=== PATIENT | female | born 1965 | race Caucasian/White ===

== ENCOUNTER 2023-04-13 18:49 | Emergency (ER) | payer BC, SELFPAY ==
[2023-04-13] VITALS (24 sets, daily range): BP systolic 96–156; BP diastolic 60–96; PULSE 53–76; RESP 10–34; TEMP 37.2; O2SAT 78–100; BMI 37.6
--- NOTE | 2023-04-13 18:57 | ED_ITS ---
HPI - General Adult General Chief complaint: Abdominal Pain Stated complaint: APPENDIX Time Seen by Provider: 04/13/23 18:53 History of Present Illness HPI narrative: this patient's here with her complaining of abdominal pain. She had a little bit of right-sided flank pain yesterday and then the abdominal pains been off and on today. She said the pain got much much more intense about an hour ago. Past surgical history includes cholecystectomy and a total abdominal hysterectomy. She's had kidney stones in the past and she's had a history of diverticulitis in the past. She's not on any antibiotics. She's not been running a fever. She's not had diarrhea. She has no urinary problems such as frequency urgency or dysuria. She says the pain is quite sharp and intense and she's moving about on the cart when describing and showing me the area of the pain. She is very restless. Related Data Previous Rx's Medication Instructions Recorded hydrocodone 5 mg-acetaminophen 325 1 tab PO Q6H PRN pain 3 days #10 04/13/23 mg tablet tabs ondansetron HCl 4 mg tablet 4 mg PO Q6H PRN nausea and 04/13/23 vomiting #10 tabs Allergies Allergy/AdvReac Type Severity Reaction Status Date / Time allopurinol AdvReac Mild Verified 04/13/23 18:57 PFSH PFSH Social History Smoking status: Never smoker Exam Narrative Exam Narrative: appears to be uncomfortable moving about on the cart she is not lying still. Vital signs are being noted by the nursing staff. She is awake alert good historian. Abdomen shows previous surgical incisions. There is good bowel sounds in all quadrants. There is no guarding rebound or rigidity. She has no tenderness on the left upper mid or lower quadrant at all. Gallbladders previously surgically medicine as noted. She has discomfort to palpation in the general area of the right mid and right lower quadrant. There is no pulsatile masses. Should be noted her pulse is sixty extremities are normal. The synagogue status evaluation is normal. At this stage we'll get lab going.upward and preliminary orders for Dr. Naranjo to assume care of this case at 1900 hrs. Constitutional Vital Signs, click to edit/add: Last Vital Signs Temp 98.9 F 04/13/23 18:57 Pulse 57 L 04/13/23 22:29 Resp 10 L 04/13/23 22:29 BP 102/83 04/13/23 22:31 Pulse Ox 98 04/13/23 22:20 O2 Del Method Nasal Cannula 04/13/23 21:32 O2 Flow Rate 2 04/13/23 21:32 Course Vital Signs Vital signs: Vital Signs Pulse Oximetry 98 04/13/23 18:55 Temperature 98.9 F 04/13/23 18:57 Pulse Rate 57 L 04/13/23 22:29 Respiratory Rate 10 L 04/13/23 22:29 Blood Pressure 102/83 04/13/23 22:31 Pulse Oximetry 98 04/13/23 22:20 Oxygen Delivery Method Nasal Cannula 04/13/23 21:32 Oxygen Delivery Flow Rate 2 04/13/23 21:32 Medical Decision Making Lab Data Labs: Lab Results 04/13/23 04/13/23 Range/Units 19:05 21:51 WBC 8.8 (4.0-11.0) 10^3/uL RBC 4.56 (4.20-5.40) 10^6/uL Hgb 13.8 (12.0-16.0) g/dL Hct 41.4 (36.0-48.0) % MCV 90.8 (81.0-99.0) fL MCH 30.3 (26.7-34.0) pg MCHC 33.3 (29.9-35.2) g/dL RDW 12.1 (11.0-15.0) % Plt Count 223 (150-450) 10^3/uL MPV 9.8 (9.5-13.5) fL Neut % (Auto) 48.0 (43.0-75.0) % Lymph % (Auto) 39.6 (20.5-60.0) % [place] % (Auto) 7.5 (1.7-12.0) % Eos % (Auto) 3.6 (0.9-7.0) % Baso % (Auto) 1.1 (0.2-2.0) % Neut # (Auto) 4.2 (1.4-6.5) 10^3/uL Lymph # (Auto) 3.5 (1.2-3.8) 10^3/uL [place] # (Auto) 0.7 (0.3-0.8) 10^3/uL Eos # (Auto) 0.3 (0.0-0.7) 10^3/uL Baso # (Auto) 0.1 (0.0-0.1) 10^3/uL Abs Immat Gran (auto) 0.02 (0.00-0.03) 10^3/uL Imm/Tot Granulo (auto) 0.2 (0.0-0.5) % Sodium 138 (136-145) mmol/L Potassium 3.9 (3.5-5.1) mmol/L Chloride 106 (98-107) mmol/L Carbon Dioxide 26.1 (21.0-32.0) mmol/L Anion Gap 9.8 BUN 17.0 (7.0-18.0) mg/dL Creatinine 1.03 H (0.55-1.02) mg/dL Est GFR ( Amer) >60 (>=60) Est GFR (Non-Af Amer) 55 L (>=60) BUN/Creatinine Ratio 16.5 Glucose 88 (74-106) mg/dL Lactate 1.0 (0.4-2.0) mmol/L Calcium 8.8 (8.5-10.1) mg/dL Total Bilirubin 0.5 (0.2-1.0) mg/dL AST 37 (15-37) U/L ALT 40 (14-59) U/L Alkaline Phosphatase 129 H (46-116) U/L Troponin I High Sens 5.1 7.8 (4.0-51.3) pg/mL Total Protein 7.6 (6.4-8.2) g/dL Albumin 4.0 (3.4-5.0) g/dL Globulin 3.6 g/dL Albumin/Globulin Ratio 1.1 Lipase 50.0 L (73.0-393.0) U/L Urine Color Lt. yellow (YELLOW) Urine Clarity Clear (CLEAR) Urine pH 6.0 (5.0-9.0) Ur Specific [place] <=1.005 A (1.005-1.025) Urine Protein Negative (NEG/TRACE) mg/dL Urine Glucose (UA) Negative (NEGATIVE) mg/dL Urine Ketones Negative (NEGATIVE) mg/dL Urine Occult Blood Negative (NEGATIVE) Urine Nitrite Negative (NEGATIVE) Urine Bilirubin Negative (NEGATIVE) Urine Urobilinogen 0.2 (0.2-1.0) EU/dL Ur Leukocyte Esterase Negative (NEGATIVE) Discharge Plan Discharge Chief Complaint: Abdominal Pain Clinical Impression: Abdominal pain, Chest pain Patient Disposition: Home, Self-Care Time of Disposition Decision: 22:22 Condition: Good Mode of Transportation: Private Vehicle Prescriptions / Home Meds: New ondansetron HCl 4 mg tablet 4 mg PO Q6H PRN (Reason: nausea and vomiting) Qty: 10 0RF hydrocodone-acetaminophen 5-325 mg tablet 1 tab PO Q6H PRN (Reason: pain) 3 Days Qty: 10 0RF Instructions: Chest Pain (ED), Flank Pain (ED) Stand Alone Forms: Portal Instructions Referrals: SURJIT SANCHEZ APRN [Primary Care Provider] - 1 week Discharge Date/Time: 04/13/23 22:37
--- NOTE | 2023-04-13 19:00 | CT_ITS ---
The [address] [address] Patient Name: JOY MACARIO MRN: [id number] date: 1965 Sex: F Assigned Patient Location: ER Current Patient Location: ED.MAIN Accession/Order Number: [id number] Exam Date: 04/13/2023 19:26 Report Date: 04/13/2023 20:06 At the request of: CLIFFORD HILL Procedure: CT abdomen pelvis w con EXAM: CT abdomen pelvis w con HISTORY: appendix versus nephrolithiasis , right lower quadrant abdominal pain. Nausea and vomiting. COMPARISON: None. TECHNIQUE: Enhanced helical acquisition obtained through the abdomen and the pelvis. FINDINGS: The visualized lung bases and the pleural spaces are clear. Status post cholecystectomy. 7 mm low-attenuation focus within hepatic segment 8. The spleen, pancreas, left adrenal gland and the kidneys are unremarkable. 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 Mild atherosclerotic disease. No enlarged lymph nodes within the abdomen or the pelvis. Normal appendix. Prior sigmoid resection. Prior hysterectomy. No ascites or focal intraperitoneal fluid collections. CT/CT abdomen pelvis w con IMPRESSION: 1. Subcentimeter low-attenuation focus within hepatic segment 8 is too small accurately characterize. This may be secondary to an underlying hepatic hemangioma or cyst. Prior cholecystectomy. 2. Normal appendix. No inflammatory changes within the abdomen or the pelvis. 3. Prior hysterectomy. 4. Prior sigmoid resection. 5. Benign myelolipoma of the right adrenal gland. Electronically authenticated by: DON HOLT Date: 04/13/2023 20:06
[2023-04-13] MEDS: ONDANSETRON PF 4 MG/2 ML VIAL IV ×2 (19:12→20:22)
[2023-04-13] MEDS: 0.9 % SODIUM CHLORIDE 1,000 ML 999 ML IV (19:12)
[2023-04-13 19:14] LABS: Bilirubin Urine NEGATIVE (NEGATIVE); Blood Urine NEGATIVE (NEGATIVE); Clarity Urine CLEAR (CLEAR); Color Urine LT. YELLOW (YELLOW); Glucose Urine UA NEGATIVE (NEGATIVE); Ketones Urine NEGATIVE (NEGATIVE); Leukocyte Esterase Urine NEGATIVE (NEGATIVE); Nitrite Urine NEGATIVE (NEGATIVE); Protein Urine NEGATIVE (NEG/TRACE); Specific Gravity Urine <=1.005 (1.005-1.025); Urobilinogen Urine 0.2 EU/dL (0.2-1.0)
[2023-04-13] MEDS: KETOROLAC TROMETHAMINE 30 MG/ML VIAL IVP (19:15)
[2023-04-13 19:16] LABS: Basophils Absolute Auto 0.1 10^3/uL (0.0-0.1); Basophils Percent Auto 1.1 % (0.2-2.0); Eosinophils Absolute Auto 0.3 10^3/uL (0.0-0.7); Eosinophils Percent Auto 3.6 % (0.9-7.0); Hematocrit 41.4 % (36.0-48.0); Hemoglobin 13.8 g/dL (12.0-16.0); Immature Granulocytes Abs Auto 0.02 10^3/uL (0.00-0.03); Immature Granulocytes Pct Auto 0.2 % (0.0-0.5); Lymphocytes Absolute Auto 3.5 10^3/uL (1.2-3.8); Lymphocytes Percent Auto 39.6 % (20.5-60.0); Mean Corpuscular HGB Conc 33.3 g/dL (29.9-35.2); Mean Corpuscular Hemoglobin 30.3 pg (26.7-34.0); Mean Corpuscular Volume 90.8 fL (81.0-99.0); Mean Platelet Volume 9.8 fL (9.5-13.5); Monocytes Absolute Auto 0.7 10^3/uL (0.3-0.8); Monocytes Percent Auto 7.5 % (1.7-12.0); Neutrophils Absolute Auto 4.2 10^3/uL (1.4-6.5); Platelet Count 223 10^3/uL (150-450); Red Blood Count 4.56 10^6/uL (4.20-5.40); Red Cell Distribution Width 12.1 % (11.0-15.0); White Blood Count 8.8 10^3/uL (4.0-11.0)
[2023-04-13] MEDS: HYDROMORPHONE HCL 1 MG/ML CARTRIDGE IVP (19:16)
[2023-04-13 19:17] LABS: Urine Microscopic Indicated NO
[2023-04-13 19:27] LABS: Alanine Aminotransferase 40 U/L (14-59); Albumin Globulin Ratio 1.1; Alkaline Phosphatase 129 U/L (46-116); Anion Gap 9.8; Aspartate Amino Transferase 37 U/L (15-37); BUN Creatinine Ratio 16.5; Bilirubin Total 0.5 mg/dL (0.2-1.0); Calcium 8.8 mg/dL (8.5-10.1); Carbon Dioxide 26.1 mmol/L (21.0-32.0); Chloride 106 mmol/L (98-107); Estimated GFR (African America >60 (>=60); Estimated GFR (Non-African Ame 55 (>=60); Globulin 3.6 g/dL; Glucose 88 mg/dL (74-106); Potassium 3.9 mmol/L (3.5-5.1); Sodium 138 mmol/L (136-145); Total Protein 7.6 g/dL (6.4-8.2)
--- NOTE | 2023-04-13 19:50 | ECG_ITS ---
The [facility] Test Date: 2023-04-13 Pat Name: JOY MAACRIO Department: Room: - Gender: Female Form Designer: : 1965 Requested By: Order Number: [id number] Reading MD: MARSHA KURTZ Measurements Intervals [place] Rate: 61 P: 63 [place]: 170 QRS: 33 QRSD: 82 T: 36 QT: 408 QTc: 411 Interpretive Statements 1100 Sinus rhythm 9110 normal ECG No previous ECG available for comparison Electronically Signed On 04-14-2023 11:08:28 EDT by MARSHA KURTZ
[2023-04-13 20:20] LABS: Troponin I High Sensitivity 5.1 pg/mL (4.0-51.3)
[2023-04-13] MEDS: MORPHINE SULFATE 4 MG/ML VIAL IV (20:22)
[2023-04-13] MEDS: LORAZEPAM 1 MG TABLET PO (21:00)
[2023-04-13 22:12] LABS: Troponin I High Sensitivity 7.8 pg/mL (4.0-51.3)
--- NOTE | 2023-04-20 21:48 | ED.ABDPAIN1 ---
HPI - Abdominal Pain General Chief Complaint: Abdominal Pain Stated Complaint: APPENDIX Time Seen by Provider: 04/13/23 18:53 Source: patient and family Mode of arrival: Wheelchair Limitations: no limitations Related Data Previous Rx's Medication Instructions Recorded hydrocodone 5 mg-acetaminophen 325 1 tab PO Q6H PRN pain 3 days #10 04/13/23 mg tablet tabs ondansetron HCl 4 mg tablet 4 mg PO Q6H PRN nausea and 04/13/23 vomiting #10 tabs Allergies Allergy/AdvReac Type Severity Reaction Status Date / Time allopurinol AdvReac Mild Verified 04/13/23 18:57 PFSH PFSH Social History Smoking status: Never smoker Exam Constitutional Vital Signs, click to edit/add: Last Vital Signs Temp 98.9 F 04/13/23 18:57 Pulse 57 L 04/13/23 22:29 Resp 10 L 04/13/23 22:29 BP 102/83 04/13/23 22:31 Pulse Ox 98 04/13/23 22:20 O2 Del Method Nasal Cannula 04/13/23 21:32 O2 Flow Rate 2 04/13/23 21:32 Course Vital Signs Vital signs: Vital Signs Pulse Oximetry 98 04/13/23 18:55 Temperature 98.9 F 04/13/23 18:57 Pulse Rate 57 L 04/13/23 22:29 Respiratory Rate 10 L 04/13/23 22:29 Blood Pressure 102/83 04/13/23 22:31 Pulse Oximetry 98 04/13/23 22:20 Oxygen Delivery Method Nasal Cannula 04/13/23 21:32 Oxygen Delivery Flow Rate 2 04/13/23 21:32 MDM - Abdominal Pain MDM Narrative Medical decision making narrative: Patient: JOY MACARIO MR#: [id number] : 1965 Acct:[id number] Age/Sex: 58 / F ADM Date: 04/13/23 Loc: ER Attending Dr: Ordering Physician: Rob Jefferson Date of Service: 04/13/23 Procedure(s): CT abdomen pelvis w con Accession Number(s): [id number] cc: Physician,Non-Staff M.Edna~ [facility] [place] [id number] Patient Name: JOY MACARIO MRN: [id number] date: 1965 Sex: F Assigned Patient Location: ER Current Patient Location: ED.MAIN Accession/Order Number: [id number] Exam Date: 04/13/2023 19:26 Report Date: 04/13/2023 20:06 At the request of: ROB JEFFERSON Procedure: CT abdomen pelvis w con EXAM: CT abdomen pelvis w con HISTORY: appendix versus nephrolithiasis , right lower quadrant abdominal pain. Nausea and vomiting. COMPARISON: None. TECHNIQUE: Enhanced helical acquisition obtained through the abdomen and the pelvis. FINDINGS: The visualized lung bases and the pleural spaces are clear. Status post cholecystectomy. 7 mm low-attenuation focus within hepatic segment 8. The spleen, pancreas, left adrenal gland and the kidneys are unremarkable. 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 Mild atherosclerotic disease. No enlarged lymph nodes within the abdomen or the pelvis. Normal appendix. Prior sigmoid resection. Prior hysterectomy. No ascites or focal intraperitoneal fluid collections. CT/CT abdomen pelvis w con IMPRESSION: 1. Subcentimeter low-attenuation focus within hepatic segment 8 is too small accurately characterize. This may be secondary to an underlying hepatic hemangioma or cyst. Prior cholecystectomy. 2. Normal appendix. No inflammatory changes within the abdomen or the pelvis. 3. Prior hysterectomy. 4. Prior sigmoid resection. 5. Benign myelolipoma of the right adrenal gland. Electronically authenticated by: DON HOLT Date: 04/13/2023 20:06 patient signed out to me by Dr. jefferson Pain is well controlled. CT scan results were reviewed. All other results were discussed with patient. Patient's abdomen is benign and nonsurgical. For completeness since the patient's pain is also in the epigastric region a 2nd troponin was obtained and is unremarkable. Patient is nontoxic, stable for outpatient follow-up and treatment. At this time the patient is without objective evidence of an acute process requiring hospitalization or inpatient management. The patient has remained hemodynamically stable. No additional indication for emergent studies at this time. I answered all questions. Discussed discharge instructions including standard anticipatory guidance and what should prompt a return to the emergency department, including if they get worse are not getting better or develops any new or concerning symptoms. I've given them specific time frame in which to follow-up, and who to follow-up with. The patient demonstrates understanding. Patient is nontoxic and stable for discharge with outpatient follow-up. This note was created with the assistance of a speech recognition program. Although the intention is to generate documents that actually reflects the content of the visit, no guarantees can be provided that every mistake has been identified and corrected by editing. Differential Diagnosis Differential diagnosis: Likely abdominal pain Lab Data Attestation: I reviewed the patient's lab results. Labs: Lab Results 04/13/23 04/13/23 Range/Units 19:05 21:51 WBC 8.8 (4.0-11.0) 10^3/uL RBC 4.56 (4.20-5.40) 10^6/uL Hgb 13.8 (12.0-16.0) g/dL Hct 41.4 (36.0-48.0) % MCV 90.8 (81.0-99.0) fL MCH 30.3 (26.7-34.0) pg MCHC 33.3 (29.9-35.2) g/dL RDW 12.1 (11.0-15.0) % Plt Count 223 (150-450) 10^3/uL MPV 9.8 (9.5-13.5) fL Neut % (Auto) 48.0 (43.0-75.0) % Lymph % (Auto) 39.6 (20.5-60.0) % [place] % (Auto) 7.5 (1.7-12.0) % Eos % (Auto) 3.6 (0.9-7.0) % Baso % (Auto) 1.1 (0.2-2.0) % Neut # (Auto) 4.2 (1.4-6.5) 10^3/uL Lymph # (Auto) 3.5 (1.2-3.8) 10^3/uL [place] # (Auto) 0.7 (0.3-0.8) 10^3/uL Eos # (Auto) 0.3 (0.0-0.7) 10^3/uL Baso # (Auto) 0.1 (0.0-0.1) 10^3/uL Abs Immat Gran (auto) 0.02 (0.00-0.03) 10^3/uL Imm/Tot Granulo (auto) 0.2 (0.0-0.5) % Sodium 138 (136-145) mmol/L Potassium 3.9 (3.5-5.1) mmol/L Chloride 106 (98-107) mmol/L Carbon Dioxide 26.1 (21.0-32.0) mmol/L Anion Gap 9.8 BUN 17.0 (7.0-18.0) mg/dL Creatinine 1.03 H (0.55-1.02) mg/dL Est GFR ( Amer) >60 (>=60) Est GFR (Non-Af Amer) 55 L (>=60) BUN/Creatinine Ratio 16.5 Glucose 88 (74-106) mg/dL Lactate 1.0 (0.4-2.0) mmol/L Calcium 8.8 (8.5-10.1) mg/dL Total Bilirubin 0.5 (0.2-1.0) mg/dL AST 37 (15-37) U/L ALT 40 (14-59) U/L Alkaline Phosphatase 129 H (46-116) U/L Troponin I High Sens 5.1 7.8 (4.0-51.3) pg/mL Total Protein 7.6 (6.4-8.2) g/dL Albumin 4.0 (3.4-5.0) g/dL Globulin 3.6 g/dL Albumin/Globulin Ratio 1.1 Lipase 50.0 L (73.0-393.0) U/L Urine Color Lt. yellow (YELLOW) Urine Clarity Clear (CLEAR) Urine pH 6.0 (5.0-9.0) Ur Specific [place] <=1.005 A (1.005-1.025) Urine Protein Negative (NEG/TRACE) mg/dL Urine Glucose (UA) Negative (NEGATIVE) mg/dL Urine Ketones Negative (NEGATIVE) mg/dL Urine Occult Blood Negative (NEGATIVE) Urine Nitrite Negative (NEGATIVE) Urine Bilirubin Negative (NEGATIVE) Urine Urobilinogen 0.2 (0.2-1.0) EU/dL Ur Leukocyte Esterase Negative (NEGATIVE) Discharge Plan Discharge Chief Complaint: Abdominal Pain Clinical Impression: Abdominal pain, Chest pain Patient Disposition: Home, Self-Care Time of Disposition Decision: 22:22 Condition: Good Mode of Transportation: Private Vehicle Prescriptions / Home Meds: New ondansetron HCl 4 mg tablet 4 mg PO Q6H PRN (Reason: nausea and vomiting) Qty: 10 0RF hydrocodone-acetaminophen 5-325 mg tablet 1 tab PO Q6H PRN (Reason: pain) 3 Days Qty: 10 0RF Instructions: Chest Pain (ED), Flank Pain (ED) Stand Alone Forms: Portal Instructions Referrals: SURJIT SANCHEZ APRN [Physician] - 1 week Discharge Date/Time: 04/13/23 22:37
== END 2023-04-13 22:37 | disposition home or self-care (01) ==
PROVIDERS: Emergency Medicine Emergency Medical Services; Emergency Provider Emergency Medicine; PCP Nurse Practitioner Primary Care
DX: R10.9 Unspecified abdominal pain (principal); R07.9 Chest pain, unspecified
CPT/HCPCS: 36415; 74177; 80053; 81003; 83605; 83690; 84484; 85025; 93005; 96374; 96375; 96376; 99284; J1170; Q9967

== ENCOUNTER 2023-10-09 16:56 | Outpatient (OUT) | payer BC, SELFPAY ==
--- NOTE | 2023-10-09 17:22 | XR_ITS ---
The [address] [address] Patient Name: JOY MACARIO MRN: [id number] date: 1965 Sex: F Assigned Patient Location: LAB Current Patient Location: Accession/Order Number: [id number] Exam Date: 10/09/2023 17:18 Report Date: 10/10/2023 07:59 At the request of: DON WEST Procedure: XR abdomen 1V EXAMINATION: XR abdomen 1V HISTORY: left upper quadrant abdominal pain R10.12 COMPARISON: No relevant comparison available. FINDINGS: BOWEL GAS PATTERN: No abnormal dilation or deviation. Moderate amount of stool throughout the colon CALCIFICATIONS: Multiple pelvic calcifications, vascular phleboliths are favored OTHER: Negative. No abnormal gaseous collections. XR/XR abdomen 1V IMPRESSION: Nonobstructive bowel gas pattern. Moderate stool throughout colon Electronically authenticated by: MIGUEL HOFFMANN Date: 10/10/2023 07:59
[2023-10-09 17:23] LABS: Basophils Absolute Auto 0.1 10^3/uL (0.0-0.1); Eosinophils Absolute Auto 0.3 10^3/uL (0.0-0.7); Eosinophils Percent Auto 3.2 % (0.9-7.0); Hematocrit 39.3 % (36.0-48.0); Hemoglobin 12.6 g/dL (12.0-16.0); Immature Granulocytes Abs Auto 0.01 10^3/uL (0.00-0.03); Immature Granulocytes Pct Auto 0.1 % (0.0-0.5); Lymphocytes Absolute Auto 2.3 10^3/uL (1.2-3.8); Lymphocytes Percent Auto 25.1 % (20.5-60.0); Mean Corpuscular HGB Conc 32.1 g/dL (29.9-35.2); Mean Corpuscular Hemoglobin 29.5 pg (26.7-34.0); Mean Platelet Volume 9.8 fL (9.5-13.5); Monocytes Absolute Auto 0.7 10^3/uL (0.3-0.8); Monocytes Percent Auto 8.1 % (1.7-12.0); Neutrophils Absolute Auto 5.6 10^3/uL (1.4-6.5); Neutrophils Percent Auto 62.5 % (43.0-75.0); Platelet Count 280 10^3/uL (150-450); Red Blood Count 4.27 10^6/uL (4.20-5.40); Red Cell Distribution Width 13.6 % (11.0-15.0)
[2023-10-09 17:34] LABS: Alanine Aminotransferase 33 U/L (14-59); Albumin Globulin Ratio 0.9; Albumin Level 3.8 g/dL (3.4-5.0); Alkaline Phosphatase 122 U/L (46-116); Amylase 39 U/L (25-115); Anion Gap 14.4; Aspartate Amino Transferase 29 U/L (15-37); BUN Creatinine Ratio 12.5; Bilirubin Total 0.4 mg/dL (0.2-1.0); Calcium 9.3 mg/dL (8.5-10.1); Carbon Dioxide 26.4 mmol/L (21.0-32.0); Chloride 102 mmol/L (98-107); Estimated GFR (African America 52 (>=60); Estimated GFR (Non-African Ame 43 (>=60); Globulin 4.3 g/dL; Glucose 85 mg/dL (74-106); Potassium 3.8 mmol/L (3.5-5.1); Sodium 139 mmol/L (136-145); Total Protein 8.1 g/dL (6.4-8.2)
== END 2023-10-09 16:57 | disposition home or self-care (01) ==
LOC: LAB 17:01
PROVIDERS: PCP Nurse Practitioner Primary Care; Visit Provider Physician Assistant
DX: R10.12 Left upper quadrant pain (principal)
CPT/HCPCS: 36415; 74018; 80053; 82150; 83690; 85025

== ENCOUNTER 2023-11-01 08:56 | Outpatient (OUT) | payer BC, SELFPAY ==
--- NOTE | 2023-11-01 09:03 | CT_ITS ---
[address] [address] Patient Name: JOY MACARIO MRN: [id number] date: 1965 Sex: F Assigned Patient Location: CT Current Patient Location: CT Accession/Order Number: [id number] Exam Date: 11/01/2023 10:55 Report Date: 11/01/2023 11:59 At the request of: DON WEST Procedure: CT abdomen pelvis w con CT abdomen pelvis w con, 11/01/2023 10:55 AM EDT INDICATION: Left Upper Quadrant Pain R10.12 COMPARISON: Prior CT of the abdomen dated 04/13/2023 TECHNIQUE: Axial images of the abdomen were obtained after the administration of IV contrast. Multiplanar reformatted images were generated and reviewed as needed. Dose reduction techniques were achieved by using automated exposure control and/or adjustment of mA and/or kV according to patient size and/or use of iterative reconstruction technique. FINDINGS: Lungs: The base of lungs is clear. No pleural effusion is noted. Liver and gallbladder: Stable small cyst or hemangioma within the right lobe of the liver. Otherwise, the liver is unremarkable. Prior cholecystectomy. No enlargement of extrahepatic biliary ducts. Mild visualization of the intrahepatic biliary ducts, unchanged. Genitourinary system: No hydronephrosis. No nephrolithiasis. No abnormality of the urinary bladder is noted. Prior hysterectomy. Other solid abdominal organs: Left adrenal gland, pancreas, and spleen are unremarkable. Stable myelolipoma in the right adrenal gland. Aorta: The infrarenal abdominal aorta is nonaneurysmal. Free fluid: There is no free fluid in the abdomen pelvis. Lymph node: No lymph node enlargement by size criteria is noted. Stomach and Bowel: No abnormality of the stomach is noted. No significant abnormality of the small or large bowel is noted. Prior sigmoid resection. Bone: There is no suspicious osteolytic or osteoblastic lesion. CT/CT abdomen pelvis w con IMPRESSION: No definite radiological finding to explain patient's symptoms. Electronically authenticated by: LOKESH LOVE Date: 11/01/2023 11:59
--- OUTSIDE RECORDS SUMMARY | 2023-11-01 09:17 | XMS_ITS | CCD ---
Author Organization [facility] Care Team Providers Care Oxygen Equipment Technician Name Role Phone MACK URIBE Primary Care Unavailable MICHAEL LAINEZ Attending Unavailable MACK URIBE Primary Care Unavailable MIGUEL WATSON Attending Unavailable Tino Shaw Unavailable Unavailable Mack Uribe Unavailable Unavailable Matilde Godinez Unavailable Unavailable Tino Shaw Unavailable Unavailable Mack Urieb Unavailable Unavailable Unavailable Mack Uribe Unavailable Katelyn Evans Unavailable Tino Shaw Unavailable Abivandana, Luke Unavailable Jane Baum Unavailable Unavailable Mack Uribe MD Primary Care Provider Matilde Godinez MD Unavailable NON STAFF Primary Care Provider UnavailDO Alexsander Jones Emergency Provider MD Devin Rodriguez Admit Provider MD Devin Rodriguez Attending Provider [phone] MD Michael Spencer Other Provider MD Mayra Denson Attending Provider MD Mack Uribe Primary Care Provider DO Nathalie West Attending Provider DO Kang Gonzalez Emergency Provider Mack Uribe MD Primary Care Provider Matilde Godinez MD Unavailable MD Mack Uribe Primary Care Provider NEEMA Merchant Emergency Provider Hector Stan Unavailable Mack Uribe MD Primary Care Provider Matilde Godinez MD Unavailable Kwadwo Webb Unavailable MD Mack Uribe Primary Care Provider DO Kang Gonzalez Emergency Provider MACK URIBE Primary Care Physician DO Elton Larson Emergency Provider MD Mack Uribe Primary Care Provider Shammo, ENGINE INSTALLER-BC Orlin T Primary Care Provider Shammo, ENGINE INSTALLER-BC Orlin T Attending Provider MD Miguel Wesley Attending Provider [phone] Shammo, ENGINE INSTALLER-BC Orlin T Referring Provider Matilde Godinez MD Unavailable Rosemarie Aldridge Unavailable Miguel Wesley Unavailable Jonathon Bauman Unavailable MD Mack Uribe Primary Care Provider DO Elton Larson Emergency Provider Shammo, ENGINE INSTALLER-BC Orlin T Primary Care Provider Shammo, ENGINE INSTALLER-BC Orlin T Attending Provider MD Miguel Wesley Attending Provider Shammo, ENGINE INSTALLER-BC Orlin T Referring Provider MD Kwadwo Webb Attending Provider NONE, XXXX Referring Unavailable DEEPAK DAVIS Admitting Unavailable DEEPAK DAVIS Attending Unavailable NONE, XXXX Referring Unavailable Jason Puentes Attending Unavaila ble Jason Puentes Attending Unavaila ble Jason Puentes Referring Unavaila ble Jason Puentes Admitting Unavaila ble MD Matt ROMANO Consulting Unavailable Jsaon Puentes Attending Unavaila ble Jason Puentes Referring Unavaila ble Jason Puentes Admitting Unavaila ble Matt ROMANO Consulting Unavailable Matt ROMANO Consulting Unavailable Jason Puentes Attending Unavaila ble Jason Puentes Admitting Unavaila ble NONE, XXXX Referring Unavailable Jason Puentes Attending Unavaila ble Jason Puentes Admitting Unavaila ble Jason Puentes Attending Unavaila ble NONE, XXXX Referring Unavailable TAMMIE MCARTHUR Attending Unavailable Unnithan, Mack S Primary Care Unavailable Elton Larson Admitting Unavailable TuElton morales Attending Unavailable Shammo, Orlin T Primary Care Unavailable Kwadwo Webb Admitting Unavailabl e Kwadwo Webb Attending Unavailabl e Kang Gonzalez Admitting Unavailable LisaKang mathew Attending Unavailable Unnithan, Mack S Primary Care Unavailable Shammo, Orlin T Primary Care Unavailable Shammo, Orlin T Attending Unavailable Shammo, Orlin T Admitting Unavailable Shammo, Orlin T Primary Care Unavailable Miguel Wesley Attending Unavailable Shammo, Orlin T Referring Unavailable Miguel Wesley Admitting Unavailable Miguel Wesley Admitting Unavailable Miguel Wesley Attending Unavailable Shammo, Orlin T Primary Care Unavailable Kwadwo Webb Admitting Unavailabl Kwadwo Adamson Attending Unavailabl e Shammo, Orlin T Primary Care Unavailable Kwadwo Webb Admitting Unavailabl Kwadwo Adamson Attending Unavailabl e Shammo, Orlin T Primary Care Unavailable JAIRON COWAN Referring Unavailable UNNITHAN, MACK S Primary Care Unavailable JAIRON COWAN Attending Unavailable UNNITHAN, MACK S Primary Care Unavailable ALISSON MACIAS M Referring Unavailable UNNITHAN, MACK S Primary Care Unavailable ALISSON MACIAS Referring Unavailable SRAVAN MARROQUIN Attending Unavailable UNNITHAN, MACK S Primary Care Unavailable UNNITHAN, MACK S Primary Care Unavailable MASSIMO MCCULLOUGH Attending Unavaila ble MONAE FINNEY Attending Unavailable UNNITHAN, MACK S Primary Care Unavailable MATILDE GODINEZ Referring Unavailable UNNITHAN, MACK S Primary Care Unavailable MATILDE GODINEZ Attending Unavailable JAIRON COWAN Referring Unavailable UNNITHAN, MACK S Primary Care Unavailable JAIRON COWAN Referring Unavailable UNNITHAN, MACK S Primary Care Unavailable Allergies Allergy Classification Reported Allergen(s) Allergy Type Date of Onset Reaction(s) Facility Allopurinol (13 sources) Allopurinol; Translations: [allopurinol] Drug Allergy Hives/[facility]rt[facility] a [facility] DO Work Phone: Sulfonamides (antibiotic) (13 sources) Sulfonamides (Antibiotic); Translations: [Sulfa Drugs] Drug Allergy Hives/[facility]rt[facility]ari [facility] DO Work Phone: (20 sources) Allopurinol; Translations: [allopurinol] Drug Allergy 11-22-19 18 Rash, Weal (disorder) [facility] Work Phone: (9 sources) Sulfonamides (Antibiotic); Translations: [sulfa drugs] Allergy to drug (finding) Unknown [facility] (20 sources) gabapentin; Translations: [gabapentin] Drug Allergy 03-03-20 13 Other: See Comments [facility] (20 sources) Sulfamethoxazole; Translations: [sulfamethoxazole ] Drug Allergy 12-04-19 12 Hives, Urticaria (disorder) [facility] (10 sources) Sulfonamides (Antibiotic); Translations: [Sulfa (Sulfonamide Antibiotics)] Allergy to substance 02-24-20 22 Unknown Reaction [facility] (20 sources) NITROFURANTOIN, MACROCRYSTALS / Nitrofurantoin, Monohydrate; Translations: [nitrofurantoin] Drug Allergy 03-29-20 22 Vomiting, Shortness of Breath, Anaphylaxis, Cough, Anaphylaxis (disorder) [facility] (10 sources) Nitrofurantoin; Translations: [nitrofurantoin] Drug Allergy 07-08-20 22 Vomiting [facility] (1 source) Sulfonamide Drug allergy Unknown [facility] Other (13 sources) Substance with sulfonamide structure and antibacterial mechanism of action (substance) Drug allergy Unknown [facility] Other (6 sources) Sulfonamides; Translations: [sulfonamides] Drug allergy Unknown [facility] Medications Current Medications Medication Drug Class(es) Dates Sig (Normalized) Sig (Original) 0.25 MG, 0.5 MG Dose 3 ML semaglutide 0.68 MG/ML Pen Injector [Ozempic] (1 source) Start: 07-13-2023 Ozempic (0.25 or 0.5 MG/DOSE) 2 MG/3ML 0.25 mg for one month and then increase to 0.5 mg dose Subcutaneous weekly for 30 days Type 2 diabetes. Intolerant metformin. Known CAD. Jul, Active acetaminophen 500 mg oral tablet (20 sources) take 1 tablet by mouth every six hours Acetaminophen 500 MG 1 tablet as needed Orally every 6 hrs Active Tylenol TABS Aniket ntity: 0 Refills: 0 Ordered: 31-Jan-2021 DO Active acetaminophen 325 mg / oxyCODONE hydrochloride 5 mg oral tablet (4 sources) Opioid Agonist Start: 06-20-2019 take 1 tablet by mouth every six hours Percocet 5/325 oral tablet ; 1 tab(s) orally every 6 hours Quantity: 24 Refills: 0 Ordered: 20-Jun-2019 Tino Shaw Start: 20-Jun-2019 Status: Other Generic Substitution Allowed Comments: Caution federal law prohibits the transfer of this drug to any person other than the person for whom it was prescribed.May cause drowsiness. Alcohol may intensify this effect. Use care when operating dangerous machinery.This prescription cannot be refilled.This product contains acetaminophen. Do not use with any other product containing acetaminophen to prevent possible liver damage.Using more of this medication than prescribed may cause serious breathing problems. Comment on above: Caution federal law prohibits the transfer of this drug to any person other than the person for whom it was prescribed.May cause drowsiness. Alcohol may intensify this effect. Use care when operating dangerous machinery.This prescription cannot be refilled.This product contains acetaminophen. Do not use with any other product containing acetaminophen to prevent possible liver damage.Using more of this medication than prescribed may cause serious breathing problems. Albuterol / Ipratropium (4 sources) Anticholinergic, beta2-Adrenergic Agonist take 1 puff(s) by inhalation four times daily ipratropium-albute rol 20 mcg-100 mcg/inh inhalation aerosol ; 1 puff(s) inhaled 4 times a day Quantity: 0 Refills: 0 Ordered: 10-Jun-2019 Genaro Monroy Status: Other Generic Substitution Allowed dicyclomine hydrochloride 20 mg oral tablet (14 sources) Anticholinergic Start: 01-17-2023 take 20 mg by mouth three times daily Dicyclomine Active 20 MG PO Three times daily January 16, 2023 11:00pm Start: 09-14-2022 End: 01-17-2023 take 10 mg by mouth twice daily Dicyclomine Discontinued 10 MG PO Twice daily September 14, 2022 12:00am January 17, 2023 3:28pm 24 hr isosorbide mononitrate 30 mg extended release oral tablet (3 sources) Nitrate Vasodilator Start: 05-03-2023 take 1 tablet by mouth once daily in the morning isosorbide mononitrate 30 mg ER Tab 30 mg = 1 tab(s), Oral, qAM, # 30 tab(s), Refills(s) 3, Pharmacy: [id number], 160, cm, 05/03/23 14:29:00 EDT, Height/Length Dosing, 97, kg, 05/03/23 14:58:00 EDT, Weight Dosing Start Date: 05/03/23 Status: Ordered LORazepam 0.5 mg oral tablet (4 sources) Benzodiazepine Start: 01-02-2021 take 1 tablet by mouth every eight hours as needed LORazepam 0.5 mg oral tablet ; 1 tab(s) orally every 8 hours, As Needed - Anxiety Quantity: 0 Refills: 0 Ordered: 01-Mar-2021 Penny Peters Start: 02-Jan-2021 Generic Substitution Allowed losartan potassium 25 mg oral tablet (20 sources) Angiotensin 2 Receptor Dimple Start: 08-20-2018 End: 02-05-2023 losartan 25 mg Tab Refills(s) 0 Start Date: 03/29/23 Status: Ordered Comment on above: TAKE 1 TABLET DAILY Take 1 tablet by arturo th once daily. metroNIDAZOLE 0.0075 mg/mg vaginal gel (15 sources) Nitroimidazole Antimicrobial Start: 03-29-2023 metronidazole 0.75% Vag Gel w/Appl 1 lala, Vaginal, Once, 70 gram, Refill(s) 0 Start Date: 03/29/23 Status: Ordered Start: 12-27-2022 metroNIDAZOLE 0.75 % cream Apply 1 application to affected area twice daily as needed. 0 12/27/2022 Active Comment on above: Apply 1 application to affected area twice daily as needed. minocycline 50 mg oral capsule (17 sources) Tetracycline-class Drug Start: 12-27-2022 minocycline 50 mg Cap Refills(s) 0 Start Date: 03/29/23 Status: Ordered Comment on above: Take 1 capsule by [facility] twice daily. Nitro Sublingual 0.4 (13 sources) Nitro Sublingual 0.4 Active nitroglycerin 0.4 mg/actuat mucosal spray (20 sources) Nitrate Vasodilator Start: 03-29-2023 nitroglycerin 0.4 mg SubL [place] Refills(s) 0 Start Date: 03/29/23 Status: Ordered Start: 01-16-2022 End: 09-14-2022 Nitroglycerin Discontinued 1 EACH TRANSDERML DAILY@0600 30 30 January 15, 2022 11:00pm September 14, 2022 7:13pm Start: 04-25-2021 End: 02-05-2023 nitroglycerin sublingual (NI TROQUICK) 0.4 mg SL tablet Indications: Atherosclerosis of [place] coronary artery of [place] heart without angina pectoris Dissolve 1 tablet under the tongue as needed for chest pain. 25 tablet 44 02/05/2023 Active nitroglycerin 0. 4 mg sublingual tablet ; 1 tab(s) sublingual every 5 minutes, As Needed, for up to 3 doses Quantity: 0 Refills: 0 Ordered: 23-Nov-2020 Greer Mcallister Generic Substitution Allowed Comment on above: DISSOLVE 1 TABLET UN EVELINE THE TONGUE NEEDED FOR CHEST PAIN Dissolve 1 tablet un eveline the tongue as needed for chest pain. ozempic (0.25 or 0.5 mg/dose) 2 mg/3ml solution pen-injector (5 sources) Start: 3 inject 0.5 mg by subcutaneous injection every week Ozempic (0.25 or 0.5 MG/DOSE) 2 MG/3ML 0.5 mg Subcutaneous weekly for 28 days Type 2 diabetes. Intolerant metformin. Known CAD. Jul, Active Start: 07-13-2023 Ozempic (0.25 or 0.5 MG/DOSE) 2 MG/3ML 0.25 mg for one month and then increase to 0.5 mg dose Subcutaneous weekly for 30 days Type 2 diabetes. Intolerant metformin. Known CAD. Jul, Active pantoprazole 40 mg delayed release oral tablet (20 sources) Proton Pump Inhibitor Start: 08-17-2019 End: 05-26-[address] Tab Refills(s) 0 Start Date: 03/29/23 Status: Ordered Start: 08-20-2018 take 40 mg by mouth twice daily Pantoprazole Active 40 MG PO Twice daily September 14, 2022 12:00am Comment on above: TAKE 1 TABLET DAILY Take 1 tablet by arturo th once daily. polyethylene glycol 3350 06057 mg powder for oral solution (3 sources) Osmotic Laxative polyethylene gl ycol 3350 oral powder for reconstitution ; use as directed once a day Quantity: 0 Refills: 0 Ordered: 01-Mar-2021 Penny Peters Status: Discontinued Generic Substitution Allowed Psyllium (12 sources) Metamucil 28 % 1 packet with 8 ounces of liquid as needed Orally PRN gummies about 3 times a week Active Metamucil gummie s about 3 times a week Active 12 hr ranolazine 500 mg extended release oral tablet (8 sources) Anti-anginal Start: 08-10-2023 take 1 tablet by mouth twice daily Ranexa 500 mg Tab-ER 500 mg = 1 tab(s), Oral, BID, # 180 tab(s), Refills(s) 3, Pharmacy: [id number], 160, cm, 08/10/23 16:28:00 EST, Height/Length Dosing, 98.6, kg, 08/10/23 16:28:00 EST, Weight Dosing Start Date: 08/10/23 Status: Ordered Start: 06-26-2023 take 1 tablet by arturo th twice daily Ranexa 500 mg Tab-ER 500 mg = 1 tab(s), Oral, BID, # 60 tab(s), Refills(s) 1, Pharmacy: [id number], 160, cm, 06/26/23 15:04:00 EST, Height/Length Dosing, 98.2, kg, 06/26/23 15:04:00 EST, Weight Dosing Start Date: 06/26/23 Status: Ordered Ranexa 5000mg/ 1 tablet daily Active rosuvastatin calcium 40 mg oral tablet (20 sources) HMG-CoA Reductase Inhibitor Start: 02-11-2019 End: 02-05-2023 rosuvastatin 40 mg Tab Refills(s) 0 Start Date: 03/29/23 Status: Ordered Comment on above: TAKE 1 TABLET DAILY AT BEDTIME Take 1 tablet by arturo th daily at bedtime. Ozempic (1 source) Start: 08-10-2023 Ozempic Refill (s) 0 Start Date: 08/10/23 Status: Ordered simethicone 80 mg chewable tablet (4 sources) Start: 01-02-2021 take 1 tablet by mouth four times daily at bedtime as needed simethicone 80 mg oral tablet, chewable ; 1 tab(s) orally 4 times a day (after meals and at bedtime), As Needed Quantity: 0 Refills: 1 Ordered: 01-Mar-2021 Penny Peters Start: 02-Jan-2021 Status: Discontinued Generic Substitution Allowed Stool Softner (10 sources) Start: 01-24-2022 take 1 tablet by mouth once daily Stool Softner Active 1 TAB PO Daily January 24, 2022 9:21am Start: 01-24-2022 take 1 tablet by mouth once da yenifer Stool Softner Active 1 TAB PO Daily January 24, 2022 12:00am Start: 01-24-2022 take 1 tablet by mouth once da yenifer Stool Softner Active 1 TAB PO Daily January 23, 2022 11:00pm sucralfate 1000 mg oral tablet (20 sources) Aluminum Complex Start: 01-17-2023 take 1 tablet by mouth every six hours Sucralfate (Carafate) 1 gram tablet Active 1 GM PO Q6H 56 14 January 16, 2023 11:00pm Start: 05-27-2021 End: 01-16-2022 take 1 tablet by mouth before mealtime Sucralfate (Carafate) 1 gram Tablet Discontinued 1 GM PO before meals May 26, 2021 11:00pm January 16, 2022 9:25am Start: 03-03-2021 End: 05-26-2022 take 1 tablet by mouth at bedtime Sucralfate (Carafate) 1 gram tablet Discontinued 1 GM PO Before meals and at bedtime 60 May 26, 2021 11:00pm January 16, 2022 9:25am Comment on above: Take 1 g by mouth fo ur times daily. traMADol hydrochloride 50 mg oral tablet (4 sources) Opioid Agonist take 1 tablet by mouth every four hours as needed Ultram 50 mg oral tablet ; 1 tab(s) orally every 4 hours, As Needed Quantity: 0 Refills: 0 Ordered: 17-Jun-2019 ArmidaLuis burciaga Status: Discontinued Generic Substitution Allowed Turmeric extract (11 sources) Turmeric Active take 1 capsule by mouth twice da yenifer Turmeric 500 mg oral capsule ; 1 cap(s) orally 2 times a day Quantity: 0 Refills: 0 Ordered: 01-Mar-2021 Penny Peters Generic Substitution Allowed take 1 capsule by mouth once lola ly Turmeric 500 mg oral capsule ; 1 cap(s) orally once a day Quantity: 0 Refills: 0 Ordered: 29-Dec-2020 Cassandra Jaeger Generic Substitution Allowed Completed/Discontinued Medications Medication Drug Class(es) Dates Sig (Normalized) Sig (Original) acetaminophen 300 mg / codeine phosphate 30 mg oral tablet (6 sources) Opioid Agonist Start: 03-07-2021 take 1 tablet by mouth twice daily Acetaminophen-Cod eine #3 300-30 MG Oral Tablet 1 tab bid Quantity: 0 Refills: 0 Ordered: 07-Mar-2021 DO Start : 07-Mar-2021 Active Start: 03-03-2021 take 1 tablet by arturo th every eight hours acetaminophen-codeine 300 mg-30 mg oral tablet ; 1 tab(s) orally every 8 hours Quantity: 15 Refills: 0 Ordered: 03-Mar-2021 Tino Shaw Start: 03-Mar-2021 Generic Substitution Allowed Comments: Caution federal law prohibits the transfer of this drug to any person other than the person for whom it was prescribed.May cause drowsiness. Alcohol may intensify this effect. Use care when operating dangerous machinery.This product contains acetaminophen. Do not use with any other product containing acetaminophen to prevent possible liver damage.Using more of this medication than prescribed may cause serious breathing problems. Comment on above: Caution federal law prohibits the transfer of this drug to any person other than the person for whom it was prescribed.May cause drowsiness. Alcohol may intensify this effect. Use care when operating dangerous machinery.This product contains acetaminophen. Do not use with any other product containing acetaminophen to prevent possible liver damage.Using more of this medication than prescribed may cause serious breathing problems. acetaminophen 325 mg / HYDROcodone bitartrate 5 mg oral tablet (20 sources) Opioid Agonist Start: 05-27-20 End: 01-25-20 take 1 tablet by mouth every six hours Hydrocodone-Acetamin ophen Discontinued 1 TAB PO Q6H 10 3 May 27, 2021 January 24, 2022 8:29am Start: 03-07-2021 End: 03-09-2021 take 1 tablet by mouth every six hours [place] 5 mg-325 mg oral tablet ; 1 tab(s) orally every 6 hours Quantity: 18 Refills: 0 Ordered: 07-Mar-2021 Jane Baum Start: 07-Mar-2021 End: 09-Mar-2021 Generic Substitution Allowed Comments: Caution federal law prohibits the transfer of this drug to any person other than the person for whom it was prescribed.May cause drowsiness. Alcohol may intensify this effect. Use care when operating dangerous machinery.This product contains acetaminophen. Do not use with any other product containing acetaminophen to prevent possible liver damage.Using more of this medication than prescribed may cause serious breathing problems. Start: 01-26-2021 End: 01-28-2021 take 1 tablet by mouth every four hours hydrocodone-acetaminophen 5 mg-325 mg oral tablet ; 1 tab(s) orally every 4 hours x 3 days Quantity: 18 Refills: 0 Ordered: 25-Jan-2021 Katelyn Evans Start: 25-Jan-2021 End: 27-Jan-2021 Generic Substitution Allowed Comments: Caution [place] law prohibits the transfer of this drug to any person other than the person for whom it was prescribed.May cause drowsiness. Alcohol may intensify this effect. Use care when operating dangerous machinery.This product contains acetaminophen. Do not use with any other product containing acetaminophen to prevent possible liver damage.Using more of this medication than prescribed may cause serious breathing problems. Start: 01-02-2021 take 1 tablet by arturo th every four hours as needed hydrocodone-acetaminophen 7.5 mg-325 mg oral tablet ; 1 tab(s) orally every 4 hours, As needed, Pain - Mod (4-6) Quantity: 24 Refills: 0 Ordered: 02-Jan-2021 Tino Shaw Start: 02-Jan-2021 Generic Substitution Allowed End: 03-07-2021 Vicodin TABS Quantity: 0 Ref ills: 0 Ordered: 07-Mar-2021 DO End : 07-Mar-2021 Complete Vicodin TABS Aniket ntity: 0 Refills: 0 Ordered: 31-Jan-2021 DO Active Comment on above: Caution federal law prohibits the transfer of this drug to any person other than the person for whom it was prescribed.May cause drowsiness. Alcohol may intensify this effect. Use care when operating dangerous machinery.This product contains acetaminophen. Do not use with any other product containing acetaminophen to prevent possible liver damage.Using more of this medication than prescribed may cause serious breathing problems. [id number] 200 actuat albuterol 0.09 mg/actuat metered dose inhaler (19 sources) beta2-Adrenergic Agonist Start: 08-20-2017 ProAir HFA 108 (90 Base) MCG/ACT Inhalation Aerosol Solution Quantity: 25 Refills: 0 Ordered: 29-Jul-2018 DO Start : 20-Aug-2017 Active Start: 08-20-2017 ProAir HFA 108 (90 Base) MCG/ACT Inhalation Aerosol Solution Quantity: 25 Refills: 0 DO Start : 20-Aug-2017 Active take 3 mL by inhalat ion every six hours as needed albuterol 2.5 mg/3 mL (0.083%) inhalation solution ; 3 milliliter(s) inhaled via nebulizer every 6 hours, As Needed Quantity: 0 Refills: 0 Ordered: 01-Mar-2021 Penny Peters Generic Substitution Allowed take 2 puff(s) by in halation four times daily as needed ProAir HFA 90 mcg/inh inhalation aerosol ; 2 puff(s) inhaled 4 times a day, As Needed Quantity: 0 Refills: 0 Ordered: 17-Jun-2019 DiFLuis burciaga Generic Substitution Allowed aspirin 81 mg delayed release oral tablet (20 sources) Platelet Aggregation Inhibitor, Nonsteroidal Anti-inflammatory Drug Start: 02-27-2020 take 1 tablet by mouth once daily aspirin, enteric coated (ECOTRIN LOW STRENGTH) 81 mg EC tablet Take 1 tablet by mouth once daily. 0 02/27/2020 Active Jazlyn Aspirin EC Low Dose Active take 1 tablet by mouth once paulo y aspirin 81 mg oral tablet ; 1 tab(s) orally once a day Quantity: 0 Refills: 0 Ordered: 01-Mar-2021 Fran Penny Status: Discontinued Generic Substitution Allowed aspirin 81 mg or al tablet, dispersible Quantity: 0 Refills: 0 Ordered: 10-Jun-2019 Genaro Monroy Status: Other Generic Substitution Allowed aspirin 81 mg or al tablet ; orally once a day Quantity: 0 Refills: 0 Ordered: 23-Nov-2020 Greer Mcallister Generic Substitution Allowed Comment on above: Take 1 tablet by arturo th once daily. bifidobacterium infantis 4 mg oral capsule (20 sources) Start: 01-25-20 End: 01-18-20 take 1 capsule by mouth once daily Bifidobacterium Infantis (Align) 4 mg Capsule Discontinued 1500 MMU CELLS PO Daily January 24, 2022 12:00am January 17, 2023 4:27pm Bifidobacterium infantis (ALIGN ORAL) Take by mouth once daily. 0 Active Comment on above: Take by mouth once d aily. cephalexin 500 mg oral capsule (9 sources) Cephalosporin Antibacterial Start: 02-24-20 End: 09-14-19 take 500 mg by mouth three times daily Cephalexin Discontinued 500 MG PO Three times daily 30 February 22, 2022 11:00pm September 14, 2022 7:12pm colchicine 0.6 mg oral capsule (20 sources) Start: 01-25-20 take 1 capsule by mouth once daily colchicine, gout, (MITIGARE) 0.6 mg capsule Indications: Gout with manifestations Take 1 capsule by mouth once daily. 30 capsule 2 05/01/2023 Active Start: 05-27-2021 End: 01-24-2022 take 0.5 mg by mouth once daily Colchicine (Gout) Discontinued 0.5 MG PO Daily May 26, 2021 11:00pm January 24, 2022 8:25am Start: 11-19-2020 MITIGARE 0.6 m g capsule Indications: Gout with manifestations TAKE 1 CAPSULE TWICE A DAY (TAKE 1 CAPSULE ONCE DAILY AND IF NEEDED CAN INCREASE TO TWICE A DAY INSTRUCTED) 180 capsule 3 11/19/2020 Active Start: 06-05-2018 take 1 tablet by arturo th once daily Colchicine 0.6 MG Oral Tablet TAKE 1 TABLET DAILY DIRECTED. Quantity: 0 Refills: 0 Ordered: 10-Jan-2019 DO Start : 05-Jun-2018 Active Mitigare Active take 1 capsule by mo [facility] once daily at bedtime Mitigare 0.6 mg oral capsule ; 1 cap(s) orally once a day (at bedtime) Quantity: 0 Refills: 0 Ordered: 01-Mar-2021 PetersPenny Generic Substitution Allowed Comment on above: TAKE 1 CAPSULE TWICE A DAY (TAKE 1 CAPSULE ONCE DAILY AND IF NEEDED CAN INCREASE TO TWICE A DAY INSTRUCTED) Take 1 capsule by mo [facility] once daily. docusate sodium 100 mg oral capsule (11 sources) Start: 06-20-20 19 take 1 capsule by mouth twice daily as needed Colace 100 MG Oral Capsule TAKE 1 CAPSULE TWICE DAILY NEEDED. Quantity: 10 Refills: 3 Ordered: 07-Mar-2021 DO Start : 07-Mar-2021 Active Comment on above: Medication should be taken with plenty of water. ergocalciferol 1.25 mg oral capsule (12 sources) Provitamin D2 Compound Start: 10-08-19 23 ergocalciferol 50,000 unit capsule (VITAMIN D2, DRISDOL) Indications: Vitamin D deficiency Take 1 capsule by mouth two times a week. (FOR EXAMPLE ONE CAPSULE ON SUNDAY AND ONE ON SUNDAY) FOR A TOTAL OF 4 WEEKS, WITH A MEAL 8 capsule 0 10/08/2022 Active Comment on above: Take 1 capsule by [facility] two times a week. (FOR EXAMPLE ONE CAPSULE ON SUNDAY AND ONE ON SUNDAY) FOR A TOTAL OF 4 WEEKS, WITH A MEAL estradiol 0.1 mg/ml vaginal cream (11 sources) Estrogen Start: 04-18-20 End: 09-15-19 23 estradiol (ESTRACE) 0.01 % (0.1 mg/gram) vaginal cream Use 1 gram vaginally daily for 2 weeks followed by 1 gram twice weekly 42.5 g 3 04/21/2022 09/15/2022 Discontinued (Discontinued by Patient) Estradiol 0.1 MG /GM Vaginal for 84 Days Active Comment on above: Use one application daily for 2 weeks followed by twice weekly Use 1 gram vaginally daily for 2 weeks followed by 1 gram twice weekly gabapentin 300 mg oral capsule (11 sources) Anti-epileptic Agent Start: 02-01-20 21 take 1 capsule by mouth twice daily Gabapentin 300 MG Oral Capsule TAKE 1 CAPSULE TWICE DAILY. Quantity: 20 Refills: 0 Ordered: 31-Jan-2021 Tino Shaw MD Start : 31-Jan-2021 Active ibuprofen 600 mg oral tablet (4 sources) Nonsteroidal Anti-inflammatory Drug Start: 06-10-20 End: 06-16-20 19 take 1 tablet by mouth three times daily at mealtime IBU 600 mg oral tablet ; 1 tab(s) orally 3 times a day Quantity: 20 Refills: 0 Ordered: 10-Jun-2019 GianlucaMaria Elena Start: 10-Jun-2019 End: 16-Jun-2019 Status: Other Generic Substitution Allowed Comments: Do not take this drug if you are .It is very important that you take or use this exactly as directed. Do not skip doses or discontinue unless directed by your doctor.May cause drowsiness or dizziness.Obtain medical advice before taking any non-prescription drugs as some may affect the action of this medication.Take with food or milk. Comment on above: Do not take this jean-pierre g if you are .It is very important that you take or use this exactly as directed. Do not skip doses or discontinue unless directed by your doctor.May cause drowsiness or dizziness.Obtain medical advice before taking any non-prescription drugs as some may affect the action of this medication.Take with food or milk. MEDICATION, NON-DATABASE (20 sources) MEDICATION, NON-DATABASE Take by mouth twice daily. Tumeric with black pepper 0 Active Comment on above: Take by mouth twice daily. Tumeric with black pepper 24 hr metFORMIN hydrochloride 500 mg extended release oral tablet (14 sources) Biguanide Start: 10-04-19 take 1 tablet by mouth once daily metFORMIN HCl ER 500 MG Oral Tablet Extended Release 24 Hour TAKE 1 TABLET DAILY DIRECTED. Quantity: 0 Refills: 0 Ordered: 04-Oct-2020 DO Start : 04-Oct-2020 Active take 1 tablet by mouth twice lola ly metFORMIN 500 mg oral tablet, extended release ; 1 orally 2 times a day Quantity: 0 Refills: 0 Ordered: 01-Mar-2021 Penny Peters Status: Discontinued Generic Substitution Allowed metFORMIN 500 mg oral tablet, extended release ; orally 2 times a day Quantity: 0 Refills: 0 Ordered: 23-Nov-2020 Greer Mcallister Generic Substitution Allowed 24 hr mirabegron 25 mg extended release oral tablet (20 sources) beta3-Adrenergic Agonist Start: 03-09-2022 End: 01-17-2023 take 1 tablet by mouth once daily Mirabegron (Myrbetriq) 25 mg tablet extended release 24 hr Discontinued 25 MG PO Daily September 14, 2022 12:00am January 17, 2023 3:37pm Comment on above: Take 25 mg by mouth once daily. naproxen 500 mg oral tablet (9 sources) Nonsteroidal Anti-inflammatory Drug Start: 07-08-2022 End: 09-14-2022 take 1 tablet by mouth twice daily Naproxen (Naprosyn) 500 mg tablet Discontinued 500 MG PO Twice daily July 08, 2022 1:29pm September 14, 2022 7:12pm nebivolol 10 mg oral tablet (20 sources) Start: 06-14-2023 take 2 tablets by mouth in the morning, then take 1 tablet by mouth in the evening nebivolol (BYSTOLIC) 10 mg tablet Indications: Essential hypertension TAKE 2 TABLETS BY MOUTH IN THE MORNING AND 1 TABLET IN THE EVENING 270 tablet 3 06/14/2023 Active Start: 01-16-2023 End: 03-20-2023 take 2 tablets by mouth in the morning, then take 1 tablet by mouth in the evening nebivolol (BYSTOLIC) 10 mg tablet Indications: Essential hypertension TAKE 2 TABLETS BY MOUTH IN THE MORNING AND 1 TABLET IN THE EVENING 90 tablet 3 03/20/2023 Active Start: 01-24-2022 End: 01-17-2023 take 20 mg by mouth once daily in the morning Nebivolol Discontinued 20 MG PO Every morning January 23, 2022 11:00pm January 17, 2023 3:29pm Start: 05-27-2021 nebivolol 10 m g Tab Refills(s) 0 Start Date: 03/29/23 Status: Ordered Start: 05-27-2021 take 1 tablet by arturo th once daily in the morning, then take 2 tablets by mouth in the evening Nebivolol (Bystolic) 10 mg Tablet Active 35 MG PO Daily May 26, 2021 11:00pm ONE IN AM AND 2 IN PM Start: 11-18-2018 End: 01-14-2023 nebivolol (BYSTOLIC) 10 mg t ablet Indications: Essential hypertension TAKE 2 TABLETS (20 MG) IN THE MORNING AND 1 TABLET (10 MG) IN THE EVENING 270 tablet 1 07/12/2021 01/11/2022 Discontinued Start: 11-18-2018 Bystolic 10 MG Oral Tablet Quantity: 270 Refills: 0 DO Start : 18-Nov-2018 Active take 1 tablet by arturo th once daily Bystolic 5 mg oral tablet ; 1 tab(s) orally once a day Quantity: 0 Refills: 0 Ordered: 10-Jun-2019 Genaro Monroy Status: Other Generic Substitution Allowed Comment on above: TAKE 2 TABLETS (20 M G) IN THE MORNING AND 1 TABLET (10 MG) IN THE EVENING TAKE 2 TABLETS BY MO UTH IN THE MORNING AND 1 TABLET IN THE EVENING Nirmatrelvir-Ritonavir (10 sources) Start: 01-16-2022 End: 01-24-2022 Nirmatrelvir-Ritonavir (Paxlovid (Eua)) 150 mg x 2- 100 mg Tablet Discontinued 1 EACH PO Twice daily 8 January 16, 2022 11:58am January 24, 2022 9:26am Start: 01-16-2022 End: 01-24-2022 Nirmatrelvir-Ritonavir (Paxl ovid (Eua)) 150 mg x 2- 100 mg Tablet Discontinued 1 EACH PO Twice daily 8 January 16, 2022 12:00am January 24, 2022 9:26am Start: 01-16-2022 End: 01-24-2022 Nirmatrelvir-Ritonavir (Paxl ovid (Eua)) 150 mg x 2- 100 mg Tablet Discontinued 1 EACH PO Twice daily 8 January 15, 2022 11:00pm January 24, 2022 8:26am ondansetron 4 mg disintegrating oral tablet (20 sources) Serotonin-3 Receptor Antagonist Start: 09-14-2022 End: 01-17-2023 take 4 mg by mouth every eight hours Ondansetron Discontinued 4 MG PO Q8H 9 September 14, 2022 12:00am January 17, 2023 3:29pm Start: 05-27-2021 End: 01-24-2022 take 4 mg by mouth every eight hours Ondansetron Discontinued 4 MG PO Q8H May 26, 2021 11:00pm January 24, 2022 8:29am Start: 01-02-2021 take 1 tablet by arturo th every eight hours as needed Zofran 8 mg oral tablet ; 1 tab(s) orally every 8 hours, As Needed Quantity: 0 Refills: 1 Ordered: 01-Mar-2021 PetersPenny soto Start: 02-Jan-2021 Generic Substitution Allowed Start: 06-10-2019 End: 06-14-2019 take 1 tablet under the tongue every six hours as needed Zofran ODT 4 mg oral tablet, disintegrating ; 1 tab(s) sublingual every 6 hours, As Needed -for nausea Quantity: 20 Refills: 0 Ordered: 10-Jun-2019 Maria Elena Hough Start: 10-Jun-2019 End: 14-Jun-2019 Status: Other Generic Substitution Allowed 24 hr oxybutynin chloride 10 mg extended release oral tablet (8 sources) Cholinergic Muscarinic Antagonist Start: 02-16-2023 take 1 tablet by mouth every twenty-four hours oxybutynin ER (DITROPAN XL) 10 mg 24 hr tablet Take 10 mg by mouth. 0 02/16/2023 Active take 1 tablet by arturo th every twenty-four hours oxyBUTYnin Chloride ER 10 MG 1 tablet Orally Once a day Active Comment on above: Take 10 mg by mouth. sertraline 50 mg oral tablet (20 sources) Serotonin Reuptake Inhibitor Start: 08-18-2021 End: 06-05-2022 sertraline (ZOLOFT) 100 mg tablet Indications: NARCISO (generalized anxiety disorder) TAKE 1 TABLET DAILY 90 tablet 3 08/18/2021 06/05/2022 Discontinued (Discontinued by Patient) Start: 08-20-2018 take 1 tablet by arturo th once daily sertraline (ZOLOFT) 50 mg tablet Take 1 tablet by mouth once daily. 0 12/12/2022 Active take 1 tablet by arturo th once daily sertraline 100 mg oral tablet ; 1 tab(s) orally once a day Quantity: 0 Refills: 0 Ordered: 05-Feb-2020 Maryann Quintero Status: Other Generic Substitution Allowed Comment on above: TAKE 1 TABLET DAILY Take 1 tablet by arturo th once daily. Problems Active Problems Problem Classification Problem Date Documented Da te Episodic/Chronic Abdominal hernia (9 sources) Hiatal hernia; Translations: [Diaphragmatic hernia without mention of obstruction or gangrene] Episodic Administrative/social admission (1 source) Repeated prescription; Translations: [Encounter for issue of repeat prescription] Episodic Anxiety disorders (20 sources) Anxiety; Translations: [Anxiety state, unspecified] 09-14-2015 Chronic Asthma (12 sources) Asthma; Translations: [Asthma, unspecified type, unspecified] Chronic Cardiac dysrhythmias (10 sources) Sinus bradycardia; Translations: [Palpitations] 03-29-2023 Episodic Cataract (1 source) Bilateral senile combined form cataracts of eyes; Translations: [Combined forms of age-related cataract, bilateral] Chronic Complication of device; implant or graft (12 sources) Complication associated with vascular device; Translations: [Thrombosis due to vascular prosthetic devices, implants and grafts, initial encounter] 01-16-2022 Chronic Complications of surgical procedures or medical care (9 sources) Drug therapy finding; Translations: [Unspecified adverse effect of drug or medicament, initial encounter] 02-23-2022 Episodic Coronary atherosclerosis and other heart disease (20 sources) Coronary arteriosclerosis; Translations: [Coronary atherosclerosis of unspecified type of vessel, sitka or graft] Onset: 03-29-2023 08-08-2021 Chronic Diabetes mellitus with complications (8 sources) Disorder due to type 2 diabetes mellitus; Translations: [Type 2 diabetes mellitus with unspecified complications] Chronic Diabetes mellitus with complications (4 sources) Diabetes mellitus with complications 03-01-2021 Diabetes mellitus without complication (20 sources) Type 2 diabetes mellitus without complication; Translations: [Type 2 diabetes mellitus without complications] Onset: 01-05-2017 Chronic Disorders of lipid metabolism (20 sources) Hyperlipidemia; Translations: [Other and unspecified hyperlipidemia] Onset: 08-26-2012 01-06-2017 Chronic Esophageal disorders (20 sources) Ramirez's esophagus; Translations: [Gastroesophageal reflux disease] Onset: 08-20-2018 08-20-2018 Chronic Essential hypertension (20 sources) Essential hypertension; Translations: [Unspecified essential hypertension] Onset: 08-26-2012 03-29-2017 Chronic Gastritis and duodenitis (11 sources) Duodenitis; Translations: [Duodenitis, without mention of hemorrhage] Episodic Gastroduodenal ulcer (except hemorrhage) (2 sources) Gastric ulcer; Translations: [Gastric ulcer, unspecified as acute or chronic, without mention of hemorrhage or perforation, without mention of obstruction] 03-03-2021 Chronic Gout and other crystal arthropathies (20 sources) Gout; Translations: [Gout, unspecified] Onset: 08-20-2018 08-20-2018 Chronic Headache; including migraine (12 sources) Frontal headache ; Translations: [Frontal headache] 01-16-2022 Episodic Immunizations and screening for infectious disease (1 source) Patient encounter status; Translations: [Encounter for immunization] Episodic Miscellaneous mental health disorders (20 sources) Feeling of lump in throat; Translations: [Other somatoform disorders] Chronic Nausea and vomiting (11 sources) Nausea and vomiting; Translations: [Nausea with vomiting, unspecified] 05-27-2021 Episodic Nutritional deficiencies (20 sources) Vitamin D deficiency; Translations: [Vitamin D deficiency, unspecified] Onset: 04-09-2012 04-09-2012 Chronic Osteoarthritis (20 sources) Primary gonarthrosis, bilateral; Translations: [Bilateral primary osteoarthritis of knee] Onset: 07-30-2015 07-30-2015 Chronic Other and unspecified benign neoplasm (13 sources) History of polyp of colon; Translations: [Personal history of colonic polyps] Episodic Other and unspecified benign neoplasm (2 sources) Personal history of colonic polyps; Translations: [Personal history of colonic polyps] Onset: 07-26-2023 Episodic Other connective tissue disease (1 source) Medial epicondylitis of left humerus; Translations: [Medial epicondylitis, left elbow] Episodic Other connective tissue disease (1 source) Pain of bilateral hands; Translations: [Pain in right hand] Episodic Other disorders of stomach and duodenum (12 sources) Disorder of stomach; Translations: [Unspecified disorder of stomach and duodenum] Episodic Other gastrointestinal disorders (11 sources) Dysphagia; Translations: [Dysphagia, unspecified] Episodic Other gastrointestinal disorders (9 sources) H/O: abdominal hernia; Translations: [Personal history of other diseases of digestive system] Episodic Other gastrointestinal disorders (20 sources) Constipation; Translations: [Constipation, unspecified] 01-17-2023 Episodic Other gastrointestinal disorders (1 source) Personal history of other diseases of the digestive system Episodic Other gastrointestinal disorders (1 source) Constipation, unspecified Episodic Other liver diseases (1 source) Alkaline phosphatase raised; Translations: [Abnormal levels of other serum enzymes] Episodic Other nervous system disorders (20 sources) Carpal tunnel syndrome; Translations: [Carpal tunnel syndrome, unspecified upper limb] Onset: 03-12-2012 03-12-2012 Chronic Other nervous system disorders (1 source) Paresthesia; Translations: [Paresthesia of skin] Episodic Other non-traumatic joint disorders (8 sources) Ankle pain; Translations: [Pain in unspecified ankle and joints of unspecified foot] 07-08-2022 Episodic Other non-traumatic joint disorders (1 source) Stiffness of left ankle, not elsewhere classified Episodic Other non-traumatic joint disorders (1 source) Pain in left ankle and joints of left foot Episodic Other non-traumatic joint disorders (1 source) Acute ankle pain; Translations: [Pain in left ankle and joints of left foot] Episodic Other nutritional; endocrine; and metabolic disorders (20 sources) Obese class II; Translations: [Obesity, unspecified] Onset: 11-06-2017 11-06-2017 Chronic Other nutritional; endocrine; and metabolic disorders (10 sources) Body mass index 30+ - obesity; Translations: [Body mass index (BMI) 39.0-39.9, adult] Chronic Other nutritional; endocrine; and metabolic disorders (1 source) Body mass index (BMI) 39.0-39.9, adult Chronic Other nutritional; endocrine; and metabolic disorders (1 source) Hyperuricemia; Translations: [Hyperuricemia without signs of inflammatory arthritis and tophaceous disease] Episodic Other nutritional; endocrine; and metabolic disorders (2 sources) Abnormal weight gain Episodic Other nutritional; endocrine; and metabolic disorders (1 source) Abnormal weight gain; Translations: [Abnormal weight gain] Onset: 06-28-2023 Episodic Residual codes; unclassified (10 sources) Obstructive sleep apnea syndrome; Translations: [Obstructive sleep apnea (adult) (pediatric)] Chronic Residual codes; unclassified (10 sources) Sleep apnea; Translations: [Sleep apnea, unspecified] Chronic Residual codes; unclassified (2 sources) Obstructive sleep apnea (adult) (pediatric) Chronic Residual codes; unclassified (1 source) Obstructive sleep apnea (adult)(pediatric); Translations: [Obstructive sleep apnea (adult) (pediatric)] Onset: 06-27-2023 Chronic Residual codes; unclassified (3 sources) History of cholecystectomy; Translations: [S/P laparoscopic cholecystectomy] Episodic Residual codes; unclassified (11 sources) History of fundoplication; Translations: [Other specified postprocedural states] 05-27-2021 Episodic Residual codes; unclassified (1 source) Family history of malignant neoplasm of digestive organs Episodic Residual codes; unclassified (1 source) Other specified health status Episodic Sprains and strains (2 sources) Strain of rotator cuff of shoulder; Translations: [Strain of muscle(s) and tendon(s) of the rotator cuff of left shoulder, initial encounter] Episodic Unclassified (2 sources) POST OP COMPLICATIONS 01-25-2021 Comment on above: POST OP COMPLICATION S Unclassified (2 sources) 6 MO FU 09-06-2020 Comment on above: 6 MO FU Unclassified (1 source) 1 MO FU 01-13-2021 Comment on above: 1 MO FU Unclassified (1 source) Chest pain, atypical 01-26-2021 Unclassified (2 sources) POSTOP ABD PAIN 03-01-2021 Comment on above: POSTOP ABD PAIN Unclassified (2 sources) FOLLOW UP FROM ER 03-07-2021 Comment on above: FOLLOW UP FROM ER Unclassified (2 sources) Abdominal pain, acute, left upper quadrant 03-07-2021 Unclassified (1 source) Ramirez's esophagus without dysplasia; Translations: [Ramirez's esophagus without dysplasia] Onset: 07-26-2023 Unclassified (1 source) Dietary counseling and surveillance; Translations: [Dietary counseling and surveillance] Onset: 07-13-2023 Unclassified (1 source) Encounter for general adult medical examination without abnormal findings; Translations: [Encounter for general adult medical examination without abnormal findings] Onset: 05-16-2023 Viral infection (15 sources) Disease caused by 2019-nCoV; Translations: [COVID-19] Episodic Past or Other Problems Problem Classification Problem Date Documented Da te Episodic/Chronic Abdominal pain (20 sources) Right flank pain; Translations: [Epigastric pain] Onset: 06-13-2021 Resolved: 03-01-2021 03-01-2021 Episodic Comment on above: ABDOMINAL PAIN Coronary atherosclerosis and other heart disease (20 sources) Patient post percutaneous transluminal coronary angioplasty; Translations: [Coronary angioplasty status] Onset: 08-17-2015 08-17-2015 Episodic Esophageal disorders (1 source) Esophageal disorders Malaise and fatigue (20 sources) Fatigue; Translations: [Other fatigue] Onset: 03-12-2012 03-12-2012 Episodic Nonspecific chest pain (20 sources) Atypical chest pain; Translations: [Other chest pain] Onset: 03-12-2016 01-26-2021 Episodic Other connective tissue disease (20 sources) Epicondylitis; Translations: [Epicondylitis] Onset: 03-12-2012 03-12-2012 Episodic Other connective tissue disease (20 sources) Pain in thumb ; Translations: [Pain in unspecified finger(s)] Onset: 11-08-2015 11-08-2015 Episodic Other liver diseases (1 source) Abnormal levels of other serum enzymes; Translations: [Elevated alkaline phosphatase level] Onset: 12-04-2022 Episodic Other lower respiratory disease (20 sources) H/O: asthma; Translations: [Personal history of other diseases of the respiratory system] Onset: 03-04-2020 03-04-2020 Episodic Other non-traumatic joint disorders (20 sources) Multiple joint pain; Translations: [Pain in unspecified joint] Onset: 03-12-2012 03-12-2012 Episodic Other non-traumatic joint disorders (20 sources) Joint pain; Translations: [Pain in unspecified joint] Onset: 06-18-2017 06-18-2017 Episodic Other screening for suspected conditions (not mental disorders or infectious disease) (20 sources) Other specified abnormal findings of blood chemistry; Translations: [Elevated LFTs] Onset: 04-09-2012 04-09-2012 Episodic Residual codes; unclassified (1 source) Sleep disorder, unspecified; Translations: [Sleep disorder, unspecified] Onset: 05-30-2023 Episodic Unclassified (1 source) SURGERY COMP. 01-25-2021 Comment on above: SURGERY COMP. NEGATED: Highlighted row has not occurred!Residual codes; unclassified (20 sources) Disease Episodic Results Test Name Value Interpretation Reference Range Facility [facility] 10-18-2023 CNOV Office Visit ([facility] ) JOY ORTIZ ([id number]) 1965 F Date Time Provider Department 10/18/23 3:00 PM MASSIMO MCCULLOUGH [facility] During your visit today, we recorded the following information about you: Pulse Blood pressure Weight 68/minute 120/70 89.6 kg Massimo Mccullough MD 10/18/2023 3:11 PM Signed [facility] OUTPATIENT VISIT DATE October 18, 2023 OUTPATIENT VISIT TYPE NEW PRIMARY CARE PHYSICIAN: Mack Uribe [address] [place] [address] A written report of the findings and recommendations will be sent to the requesting provider via shared medical record or via [employer]. Patient is being seen at the request of Dr Godinez for dizziness. HISTORY OF PRESENT ILLNESS: Ms. Ortiz is a 58 year old female with HTN, and HLD, CAD, s/p PCI and on medical therapy. No recent evidence of new ischemia. Complained of palpitations and dizziness. IMPRESSION: Palpitation: Unclear etiology. ECG normal. 2 weeks zio to assess rhythm correlation with symptoms. F/u in 2 months after result PLAN AND RECOMMENDATIONS: Palpitation: Unclear etiology. ECG normal. 2 weeks zio to assess rhythm correlation with symptoms. F/u in 2 months after result REVIEW OF SYSTEMS: Chest pain No Shortness of breath No Bleeding No Dizziness No Syncope No Palpations No 10 systems reviewed and are negative with the exception of pertinent positives described in HPI PHYSICAL EXAMINATION: BP 120/70 Pulse 68 Wt 89.6 kg (197 lb 8.5 oz) BMI 34.99 kg/m? HEENT: normocephalic, EOMI Heart: regular rhythm Lungs: clear to auscultation Abdomen: bowel sounds present Extremities: no edema Musculoskeletal: chest wall nontender Neurological: alert and oriented Psychiatric: appropriate and cooperative Skin: no rash, cellulitis or lesions appreciated CARDIOVASCULAR MEDICINE TESTING: I have personally reviewed ECG Last EKG Result Conclusion ECG COMPLETE Collected: 10/18/2023 2:41 PM (Preliminary result) Impression: NORMAL SINUS RHYTHM NORMAL ECG PAST CARDIAC HISTORY: See below PAST MEDICAL HISTORY Diagnosis Date Asthma dx'd 15 yrs ago- has not been on medication Atherosclerotic coronary vascular disease 05/20/2015 Lexiscan perfusion normal, EF 68%; Echo normal; Cath 05/2014 Irregularies wiith 50% rca in-stent stenosis. 09/2012 RCA CARRI X2 to prox vessel Bradycardia CAD (coronary artery disease) Carpal tunnel syndrome Chest pain Colon polyp Cscope 05/29/14 w polyps, f/u 3 yrs. Depression Diverticulitis NARCISO (generalized anxiety disorder) HTN (hypertension) Hyperlipidemia Pneumonia Sleep apnea Suspected COVID-19 virus infection 03/04/2020 Vitamin D deficiency 04/09/2012 PAST SURGICAL HISTORY Procedure Laterality Date CARDIAC CATHETERIZATION HX 08/2012 stents x 2 COLECTOMY PARTIAL W/ANASTOMOSIS 2017 Sigmoidectomy COLONOSCOPY 05/29/2014 - repeat 3 years ECHO 05/20/2015 mildly dilated IVC HERNIA REPAIR HX Bilateral -hiatal hernia LEFT HEART CATH 05/12/2014 01/26/22- unremarkable LEXISCAN STRESS TEST PANEL 05/20/2015 NORMAL SALPINGO-OOPHORECTOMY COMPL/PRTL UNI/BI SPX 1994 Salpingo-oophorectomy TOTAL ABDOMINAL HYSTERECT W/WO RMVL TUBE OVARY 1989 Hysterectomy, DORENE Social History Tobacco Use Smoking status: Never Smokeless tobacco: Never Vaping Use Vaping Use: Never used Substance Use Topics Alcohol use: No Drug use: No FAMILY HISTORY Problem Relation Age of Onset Macular Degen Father Diabetes Father Coronary Artery Disease Father Multiple stents in early 60's, age 70 Hypertension Father No Ocular Disease Mother Colon Cancer Mother 53 Hypertension Mother Diabetes Mother Hypertension Brother Cancer Brother epithelioid of leg. Colon Cancer Maternal Grandmother other (htn) Maternal Grandmother other (lung cancer) Maternal Grandfather Coronary Artery Disease Paternal Aunt Coronary Artery Disease Paternal Uncle Coronary Artery Disease Paternal Uncle ALLERGIES Allergen Reactions Nitrofurantoin [place]* Vomiting, Shortness of Breath, Anaphylaxis, Cough Allopurinol Rash patient reported in Home Inventory S[pecialists message noted on November 21, 2017 Bactrim [Sulfametho* Hives Neurontin [Gabapent* Other: See Comments Mouth sores CURRENT MEDICATIONS: nebivolol (BYSTOLIC) 10 mg tablet TAKE 2 TABLETS BY MOUTH IN THE MORNING AND 1 TABLET IN THE EVENING (Patient taking differently: Take 10 mg by mouth once daily.) oxybutynin ER (DITROPAN XL) 10 mg 24 hr tablet Take 10 mg by mouth. rosuvastatin (CRESTOR) 40 mg tablet Take 1 tablet by mouth daily at bedtime. nitroglycerin sublingual (NITROQUICK) 0.4 mg SL tablet Dissolve 1 tablet under the tongue as needed for chest pain. losartan (COZAAR) 25 mg tablet Take 1 tablet by mouth (more content not included)... Normal [facility] ECG COMPLETEon 10-18-2023 Atrial Rate 68 BPM [facility] Calculated P [place] [address] [facility] Calculated R [place] [address] [facility] Calculated T [place] [address] [facility] P-R Interval 172 ms [facility] QRS Duration 76 ms [facility] QT Interval 394 ms [facility] QTC Calculation (Bazett) 418 ms [facility] Ventricular Rate [address] [facility] ECG COMPLETE Ventricular Rate : 6 8 BPM Atrial Rate : 68 BPM P-R Interval : 172 ms QRS Duration : 76 ms Q-T Interval : 394 ms QTC Calculation(Bazett) : 418 ms Calculated P [place] : 63 degrees Calculated R [place] : 51 degrees Calculated T [place] : 36 degrees NORMAL SINUS RHYTHM NORMAL ECG Confirmed by JEFFERY CHANEL MD ([id number]) on 10/18/2023 6:47:42 PM NAME : JOY ORTIZ PID : [id number] : 1965 Gender : Female Race : ORD : [id number] Procedure Date : Oct 18 2023 14:41:58 Edit Date : Oct 18 2023 18:47:44 Diagnosis: NORMAL SINUS RHYTHM NORMAL ECG Confirmed by JEFFERY CHANEL MD ([id number]) on 10/18/2023 6:47:42 PM Test Reason : R00.2 Palpitations Location : 145 : LOCARD Overread By : JEFFERY CHANEL MD Edited By : JEFFERY CHANEL MD Referred By : Sadia Acquired by : Michelle moreno [facility] Heart and Vascular Office/Cl inic Noteon 08-19-2023 Heart and Vascular Office/Clinic Note Chief Complaint 6 week follow up History of Present Illness Joy Ortiz is a 58-year-old female with a history of CAD and prior PCI, hypertension, and hyperlipidemia. She was having some angina. We did a heart catheterization. The stents were patent. She had a mild nonobstructive disease. We went ahead and tried antianginals, considering the symptoms sounded pretty typical. She responded well to Ranexa after failing isosorbide due to a headache. The patient reports that her overall health is good. She denies any new health concerns. She mentions that, due to her inability to tolerate isosorbide, she was prescribed Ranexa by Juanita Wheeler CNP. She mentions that Ranexa has been effective for her. She denies any current chest pain or minimal occurrences. She experienced only 1 episode of chest pain. She requests a refill for her prescription of Ranexa. Review of Systems PHQ Score Initial Depression Screen Score: 0 SCORE Constitutional: no fever, no sweats, no weakness Skin: no rash, no lesions, no bruising/petechiae ENMT: no sore throat, no congestion, no hoarseness Respiratory: no shortness of breath, no cough, no orthopnea, no wheezing Cardiovascular: no chest pain, no palpitations, no edema Gastrointestinal: no nausea, no vomiting, no diarrhea, no GI bleeding Genitourinary: no anuria/oliguria no hematuria Musculoskeletal: no back pain, no trauma Neurologic: no headache, no dizziness, no numbness, no weakness Psychiatric: no sleeping problems, no irritability, no anxiety/depression. Heme/Lymph: no bleeding tendency, no bruising tendency Allergy/Immunologic: no recurrent infections, no impaired immunity Additional ROS info: Except as noted in the above Review of Systems and in the History of Present Illness all other systems have been reviewed and are negative or noncontributory Physical Exam Vitals & Measurements HR: 69(Peripheral) BP: 133/82 SpO2: 100% HT: 63 in HT: 160 cm WT: 98.613 kg WT: 216.949 lb BMI: 38.52 General: alert, no acute distress Skin: warm, dry intact Head: atraumatic, normocephalic Neck: trachea midline, no JVD, no bruit Eye: normal conjunctiva, sclera clear ENMT: oral mucosa moist Cardiovascular: regular rate and rhythm, no murmur, normal peripheral perfusion Respiratory: lungs CTA, respirations non labored Chest wall: no deformity. Gastrointestinal: soft, non-distended, no tenderness, no guarding. Back: no tenderness, normal ROM, normal alignment. Extremities: no edema, no deformity, no trauma Neurological: oriented x 4, LOC appropriate for age, sensation equal & normal bilaterally, speech normal Psychiatric: cooperative, affect appropriate for age, normal judgement, normal psychiatric thoughts. Assessment/Plan Assessment/Plan Joy Ortiz is a 58-year-old female with a history of CAD and prior PCI, hypertension, and hyperlipidemia. 1. Angina She was having some angina. We did a heart catheterization. The stents were patent. She had a mild nonobstructive disease. We went ahead and tried antianginals, considering the symptoms sounded pretty typical. She responded well to Ranexa after failing isosorbide due to a headache. We will refill her Ranexa. Follow up in 6 months. Portions of this record may have been created with voice recognition artificial intelligence software, specifically [employer], Smart[employer] and or WebMD. Substitutions may have occurred with voice recognition and artificial intelligence software. ATTESTATION: Documentation services were performed after the patient or guardian consented to allow [employer] to record this visit. LEYDI systems specialist and provider reviewed before signing. LEYDI: Alexandrea Harmon. Follow-up No qualifying data available Problem List/Past Medical History Ongoing Bradycardia, sinus Historical No qualifying data Procedure/Surgical History Cardiac catheterization, left heart (05/11/2023), Abdominal hysterectomy, Cholecystectomy, Colonoscopy, Hiatal hernia. Medications aspirin 81 mg Oral EC Tab losartan 25 mg Tab minocycline 50 mg Cap nebivolol 10 mg Tab nitroglycerin 0.4 mg SubL [place] Ozempic Pantoprazole [address] Tab Ranexa 500 mg Tab-ER, 500 mg= 1 tab(s), Oral, BID, 3 refills rosuvastatin 40 mg Tab sertraline 50 mg Tab Allergies allopurinol (Wheal) gabapentin (unknown) nitrofurantoin (Anaphylaxis) sulfa drugs (Unknown) sulfamethoxazole (Unknown, Urticaria) sulfonamides (Unknown) Social History Tobacco - Denies Tobacco Use, 06/26/2023 Never (less than 100 in lifetime) Tobacco Use:. Never Smokeless Tobacco Use:. Cigarettes, Household tobacco concerns: No., 08/10/2023 Family History Heart disease: Mother and Father. Immunizations Vaccine Date Status Comments influenza virus vaccine, inactivated - Not Given Postpone due to refusal zoster vaccine, inactivated 06/12/2022 Recorded SARS-CoV-2 (COVID-19) [id number] (more content not included)... Normal [facility] Comment on above: Result Comment: Elec tronically Signed By: Deloris TRENT, Jasno Bishop\\.br\\Date and Time Signed: 08/19/23 20:50 EST\\.br\\Electronically Co-Signed By: Alexandrea Harmon.hi\\Date and Time Co-Signed: 08/10/23 18:20 EST Consent for Treatmenton 07-14 Consent for Treatment [id number] [facility] Physician Orderon 08-10-2023 Physician Order [id number]#[id number] [facility] Glucose Poct Glucometerson 1 09-26-2022 Glucose [Mass/Vol] 93 mg/dL Normal [facility] Comment on above: Result Comment: [facility] [place] Glucose Reference Range is dependent on time and content of last meal. Glucose of more than 200 mg/dL in a nonstressed, ambulatory subject supports the diagnosis of Diabetes Mellitus. PERFORMED BY: [facility] [address] [place] [address] PATHOLOGIST STOVE REFINISHER REG DRISCOLL M.D. Performed By: #### G CECILIA #### Point of Care testing , Haroldo 07-26-2023 L ------- Specimen: [id number] Received: 07/26/23 Status: JESSI Iyer Num: [id number] Spec Type: Surgical Subm Dr: Kwadwo Webb MD Tissues: A Esophagus Biopsy (ESOPHAGUS BX R/O BARRETTS) Procedures: HE/2, Gross/Micro L4 Age/ Patient Sex Location Account Attending Physician Joy Ortiz 58/F [id number] Kwadwo Webb MD SPEC NUM: [id number] RECD: 07/26/23 STATUS: JESSI IYER NUM: [id number] MARCELA: 07/26/23 DR: Kwadwo Webb MD ENTERED: 07/26/23 DR: JOEL TYPE: Surgical DEPT: S ORDERED: HE/2, Gross/Micro L4 ORDERED: HE/2, Gross/Micro L4 Pathological Diagnosis Esophagus biopsy: - Squamocolumnar mucosa with evidence of mild chronic Ramirez's esophagitis, otherwise without any obvious eosinophilic exocytosis, glandular dysplasia, or any significant stromal chronic inflammation observed Clinical Information GERD, polyps, rule out Ramirez's Gross Description Received in formalin labeled with the patient's name, date of and esophagus biopsy is one guevara tissue measuring 0.3 x 0.2 x 0.1 cm. Entirely submitted in one cassette labeled A1. Microscopic Description Two H E slides reviewed. The microscopic examination confirms the diagnosis. CPT Codes 00813 Specimen: [id number] Received: 07/26/23 Status: JESSI Iyer Num: [id number] Spec Type: Surgical Subm Dr: Kwadwo Webb MD Tissues: A Esophagus Biopsy (ESOPHAGUS BX R/O BARRETTS) Procedures: HE/2, Gross/Micro L4 Patient: Joy Ortiz [id number] (Continued) Signed (signature on file) Kalli Tan MD 07/27/23 1508 [facility] Heart and Vascular Office/Cl inic Noteon 07-11-2023 Heart and Vascular Office/Clinic Note Chief Complaint 1 month F/U- Heart Cath History of Present Illness Joy Ortiz is a 58-year-old female with past medical history positive for CAD with prior PCI, hypertension, hyperlipidemia. She was recently seen by Dr. Puentes with concerning anginal symptoms. She underwent left heart cath which revealed patent stents, no significant new narrowings. She has normal LV function. Medical management was continued. She is here today in follow-up. She did not tolerate Imdur due to headache. Still having occasional chest pain. Review of Systems PHQ Score Initial Depression Screen Score: 0 SCORE Constitutional: no fever, no chills, no weakness, no fatigue Respiratory: no shortness of breath, no cough, no orthopnea, no wheezing Cardiovascular: + chest pain, no palpitations, no edema Neuro:no dizziness no light headed no syncope Additional ROS info: Except as noted in the above Review of Systems and in the History of Present Illness all other systems have been reviewed and are negative or noncontributory. Physical Exam Vitals & Measurements HR: 58(Peripheral) BP: 121/66 SpO2: 98% HT: 63 in HT: 160 cm WT: 98.2 kg WT: 216.04 lb BMI: 38.36 General: alert, no acute distress Neck: Supple, noJVD nocarotid bruit Cardiovascular: regular rate and rhythm, no murmur normal peripheral perfusion Respiratory: Lungs CTA, respirations non labored Extremities:no edema Neurological: oriented x 4, LOC appropriate for age, sensation equal & normal bilaterally, speech normal Skin: Warm, dry, intact- no rash or concerning lesions Procedure [facility] - Dr Puentes 05/11/23 Findings LMT: Normal left main trunk with bifurcation LAD: Normal caliber with mild irregularity and less than 30% stenosis, reaches the apex. LCx: Normal caliber with mild irregularity and less than 30% no stenosis, reaches the lateral wall. RCA: Normal caliber with 40% proximal stenosis, dominant, patent previously placed proximal to mid stents, reaches the inferior wall. Hemodynamics: Normal LVEDP with no gradient across the aortic valve. Left ventriculography: Normal LV systolic function, EF 55-60%, mild basal inferior hypokinesis wall motion abnormalities and normal chamber size with no mitral regurgitation. Conclusions: Patent stents and no significant new narrowing. Medical therapy is advised. [1] Cardiac Diagnostics (04/11/2023 08:48 EDT Echo Transthoracic Complete) Interpretation Summary No comparison study is available. Ejection Fraction = 60-65%. The left ventricular wall motion is normal. Diastolic dysfunction, Grade II (pseudonormalization pattern). There is trace tricuspid regurgitation. Estimated RVSP is mildly elevated at 38 mmHg. [2] Assessment/Plan 1. CAD in [place] artery (I25.10: Atherosclerotic heart disease of [place] coronary artery without angina pectoris) CAD with prior PCI- recent cath with patent stents CARDOZA with Imdur, will try Ranexa. Continue also asa, statin, beta dimple. Close follow up 2. HTN (hypertension) (I10: Essential (primary) hypertension) Blood pressure is stable. Continue nebivolol 10 mg daily, losartan 25 mg daily 3. Hyperlipemia (E78.5: Hyperlipidemia, unspecified) Stable, continue high intensity rosuvastatin. 4. Obesity (E66.9: Obesity, unspecified) The standard range for ages 18 and older is >=18.5 and < 25 kg/m2. Your BMI today was above this range, this falls in the overweight to obese category and there are medical benefits to weight loss. We can offer counselling, referral, and/or medical support in addressing this problem. Your BMI and weight management will be followed at subsequent visits. Follow-up With When Contact Information Deloris TRENT, Jason Bishop Within 6 weeks [address] [place] [address]- Additional Instructions: Problem List/Past Medical History Ongoing Bradycardia, sinus Historical No qualifying data Procedure/Surgical History Cardiac catheterization, left heart (05/11/2023), Abdominal hysterectomy, Cholecystectomy, Colonoscopy, Hiatal hernia. Medications aspirin 81 mg Oral EC Tab losartan 25 mg Tab minocycline 50 mg Cap nebivolol 10 mg Tab nitroglycerin 0.4 mg SubL [place] Pantoprazole [address] Tab Ranexa 500 mg Tab-ER, 500 mg= 1 tab(s), Oral, BID, 1 refills rosuvastatin 40 mg Tab sertraline 50 mg Tab Allergies allopurinol (Wheal) gabapentin (unknown) nitrofurantoin (Anaphylaxis) sulfa drugs (Unknown) sulfamethoxazole (Unknown, Urticaria) sulfonamides (Unknown) Social History Tobacco - Denies Tobacco Use, 06/26/2023 Never (less than 100 in lifetime) Tobacco Use:. Never Smokeless Tobacco Use:., 06/26/2023 Family History Heart disease: Mother and Father. Immunizations Vaccine Date Status Comments influenza virus vaccine, inactivated - Not Given Postpone due to refusal zoster vaccine, inactivated 06/12/2022 Recorded SARS-CoV-2 (COVID-19) [id number] 05/26/2022 Recorded 2023-06-26: TPV50 zoster va (more content not included)... [facility] Comment on above: Result Comment: Elec tronically Signed By: Juanita DAVIS CNP\\.hi\\Date and Time Signed: 07/11/23 15:37 EST Heart and Vascular Office/Cl inic Noteon 07-06-2023 Heart and Vascular Office/Clinic Note Chief Complaint here for test results History of Present Illness Joy Ortiz is a 58-year-old female with a history of CAD, prior PCI, hypertension, hyperlipidemia, having angina. She has had to take nitro 3 days in a row. The patient reports being unwell but intends to proceed with the stress test. She denies experiencing chest pain, difficulty breathing, or any related symptoms. She underwent a heart catheterization approximately two years ago. She is interested in obtaining an isosorbide medication. She is currently taking 1 tablet each losartan and Bystolic, and this regimen seems to be working well for her. She notes that her blood pressure was getting too high, resulting in headaches. Review of Systems Constitutional: no fever, no sweats, no weakness Skin: no rash, no lesions, no bruising/petechiae ENMT: no sore throat, no congestion, no hoarseness Respiratory: no shortness of breath, no cough, no orthopnea, no wheezing Cardiovascular: no chest pain, no palpitations, no edema Gastrointestinal: no nausea, no vomiting, no diarrhea, no GI bleeding Genitourinary: no anuria/oliguria no hematuria Musculoskeletal: no back pain, no trauma Neurologic: no headache, no dizziness, no numbness, no weakness Psychiatric: no sleeping problems, no irritability, no anxiety/depression. Heme/Lymph: no bleeding tendency, no bruising tendency Allergy/Immunologic: no recurrent infections, no impaired immunity Additional ROS info: Except as noted in the above Review of Systems and in the History of Present Illness all other systems have been reviewed and are negative or noncontributory Physical Exam Vitals & Measurements HR: 62(Peripheral) BP: 126/74 SpO2: 97% HT: 63 in HT: 160 cm WT: 97 kg WT: 213.4 lb BMI: 37.89 General: alert, no acute distress Skin: warm, dry intact Head: atraumatic, normocephalic Neck: trachea midline, no JVD, no bruit Eye: normal conjunctiva, sclera clear ENMT: oral mucosa moist Cardiovascular: regular rate and rhythm, no murmur, normal peripheral perfusion Respiratory: lungs CTA, respirations non labored Chest wall: no deformity. Gastrointestinal: soft, non-distended, no tenderness, no guarding. Back: no tenderness, normal ROM, normal alignment. Extremities: no edema, no deformity, no trauma Neurological: oriented x 4, LOC appropriate for age, sensation equal & normal bilaterally, speech normal Psychiatric: cooperative, affect appropriate for age, normal judgement, normal psychiatric thoughts. Assessment/Plan Joy Ortiz is a 58-year-old female with a history of CAD, prior PCI, hypertension, hyperlipidemia, having angina. 1. Unstable angina (I20.0: Unstable angina) She has had to take nitro 3 days in a row, so I have recommended we go ahead and do the heart catheterization and she have agreed. We will add isosorbide and set her up for a catheterization, possible PCI. Add Imdur 2. CAD in [place] artery (I25.10: Atherosclerotic heart disease of [place] coronary artery without angina pectoris) CAD, remote PCI. ASA 81mg, high intensity statin, b-dimple plus/minus ARB. Risk factor modification, diet, exercise and cath as above. 3. HTN (hypertension) (I10: Essential (primary) hypertension) BP optimized on Losartan 25 mg daily, Bystolic 10 mg daily 4. Hyperlipemia (E78.5: Hyperlipidemia, unspecified) Stable on high intensity statin, Crestor 40 mg daily 5. Obesity (E66.9: Obesity, unspecified) The standard range for ages 18 and older is >=18.5 and < 25 kg/m2. Your BMI today was above this range, this falls in the overweight to obese category and there are medical benefits to weight loss. We can offer counselling, referral, and/or medical support in addressing this problem. Your BMI and weight management will be followed at subsequent visits. Portions of this record may have been created with voice recognition artificial intelligence software, specifically [employer], Dragon Express and or Dragon [employer]ient Experience. Substitutions may have occurred due to the inherent limitations of voice recognition and artificial intelligence software. Documentation services were performed after the patient or guardian consented to allow [employer] to record this visit. LEYDI systems specialist and provider reviewed before signing. LEYDI: Alexandrea Kee Follow-up No qualifying data available Problem List/Past Medical History Ongoing Bradycardia, sinus Historical No qualifying data Procedure/Surgical History Abdominal hysterectomy, Cholecystectomy, Colonoscopy, Hiatal hernia. Medications aspirin 81 mg Oral EC Tab isosorbide mononitrate 30 mg ER Tab, 30 mg= 1 tab(s), Oral, qAM, 3 refills losartan 25 mg Tab metronidazole 0.75% Vag Gel w/Appl, 1 lala, Vaginal, Once minocycline 50 mg Cap Mitigare 0.6 mg oral capsule nebivolol 10 mg Tab nitroglycerin 0.4 mg SubL [place] Pantoprazole [address] Tab rosuvastatin 40 mg Tab sertraline 50 mg Tab Allergies allopurino (more content not included)... [facility] Comment on above: Result Comment: Elec tronically Signed By: Deloris TRENT, Jason Bishop\\.br\\Date and Time Signed: 07/06/23 14:18 EST\\.br\\Electronically Co-Signed By: Alexandrea Harmon\\.br\\Date and Time Co-Signed: 05/03/23 18:39 EDT Consent for Treatmenton 06-13 Consent for Treatment [id number] [facility] Physician Orderon 06-26-2023 Physician Order [id number]#1.00TIFF [facility] Operative Reporton 3 Operative Report Indication for Surge ry Angina pectoris CCS class III crescendo pattern, known CAD and prior PCI Preoperative Diagnosis Known CAD, presumed new narrowing Postoperative Diagnosis Confirmed CAD with no significant narrowings Medical therapy Operation Coronary angiography Left ventriculography Hemodynamic measurements of the left ventricle This note is completed immediately following the procedure the date and time of this procedure are the same as this note. Surgeon(s) Jason Puentes MD Anesthesia Conscious sedation Estimated Blood Loss Trivial Findings LMT: Normal left main trunk with bifurcation LAD: Normal caliber with mild irregularity and less than 30% stenosis, reaches the apex. LCx: Normal caliber with mild irregularity and less than 30% no stenosis, reaches the lateral wall. RCA: Normal caliber with 40% proximal stenosis, dominant, patent previously placed proximal to mid stents, reaches the inferior wall. Hemodynamics: Normal LVEDP with no gradient across the aortic valve. Left ventriculography: Normal LV systolic function, EF 55-60%, mild basal inferior hypokinesis wall motion abnormalities and normal chamber size with no mitral regurgitation. Conclusions: Patent stents and no significant new narrowing. Medical therapy is advised. Complications None Technique Following full and informed consent the patient was brought to the [facility] where sterile prep and drape were administered in usual fashion. Anesthesia was obtained in the right wrist with lidocaine after administration of conscious sedation. A 5/6 slender Terumo sheath was placed in the right radial artery without complication. Nitroglycerin and nicardipine were given via the sheath and heparin was given intravenously. A 5 Icelandic JACKE catheter was advanced and selectively engaged in the left main coronary artery and right coronary artery each, where selective injections were performed. A pigtail catheter was placed in the left ventricle where hemodynamic measurements the left ventricle were made and a bolus was given for left ventriculography. A pullback gradient was obtained. The sheath was removed with hemostasis obtained by D-Stat radial device at the end of the procedure without complication. [facility] Comment on above: Result Comment: Elec tronically Signed By: Deloris TRENT, Jason Bishop\\.br\\Date and Time Signed: 05/18/23 09:38 EDT A1C with Estimated Average G shantareji 05-16-2023 Glucose [Mass/Vol] 128 mg/dL Normal [facility] Comment on above: Result Comment: PERF ORMED BY: [place] [address] PATHOLOGIST STOVE REFINISHER REG DRISCOLL M.D. Performed By: #### C BC, BMP, LIPASE, HEPATIC #### [address] HbA1c (Bld) [Mass fraction] 6.1 % High 4.3-5.6 [facility] Comment on above: Result Comment: Incr eased risk for diabetes: 5.7 - 6.4 diabetes: >6.4 glycemic control for adults with diabetes: <7.0 Performed By: #### C BC, BMP, LIPASE, HEPATIC #### [facility] [address] Alanine aminotransferase [En zymatic activity/volume] in Serum or PlasmaOrdered By: Orlin Shammo on 05-16-2023 ALT [Catalytic activity/Vol] 25 U/L 7-52 [facility] Albumin [Mass/volume] in Ser um or Plasma by Bromocresol green (BCG) dye binding methoOrdered By: Orlin Shammo on 05-16-2023 Albumin BCG dye [Mass/Vol] 4.3 g/dL 3.5-5.7 [facility] Alkaline phosphatase [Enzyma tic activity/volume] in Serum or PlasmaOrdered By: Orlin Shammo on 05-16-2023 ALP [Catalytic activity/Vol] 109 U/L 34-104 [facility] Aspartate aminotransferase [ Enzymatic activity/volume] in Serum or PlasmaOrdered By: Orlni Shammo on 05-16-2023 AST [Catalytic activity/Vol] 25 U/L 13-39 [facility] Bilirubin.total [Mass/volume ] in Serum or PlasmaOrdered By: Orlin Shammo on 05-16-2023 Bilirubin [Mass/Vol] 0.8 mg/dL 0.3-1.0 [facility] Calcium [Mass/volume] in Ser um or PlasmaOrdered By: Orlin Shammo on 05-16-2023 Calcium [Mass/Vol] 9.2 mg/dL 8.6-10.3 [facility] Carbon dioxide, total [Moles /volume] in Serum or PlasmaOrdered By: Orlin Shammo on 05-16-2023 CO2 [Moles/Vol] 29.5 mmol/L 21.0-31.0 [facility] [facility] Chloride [Moles/volume] in S storm or PlasmaOrdered By: Orlin Shammo on 05-16-2023 Chloride [Moles/Vol] 106 mmol/L 98-107 [facility] Cholesterol [Mass/volume] in Serum or PlasmaOrdered By: Olrin Shammo on 05-16-2023 Cholesterol [Mass/Vol] 156 mg/dL 140-200 [facility] Comment on above: Chol less than 200 m g/dl low riskChol 201-239 mg/dl borderline riskChol 240 mg/dl and greater high risk Cholesterol in LDL Calc [Mas s/Vol]Ordered By: Orlin Freeman on 05-16-2023 Cholesterol in LDL [Mass/Vol] 84 mg/dL 0-100 [facility] Comment on above: LDL ATP III CLASSIFI CATIONLDL less than 100 mg/dL OptimalLDL 100-129 mg/dL Near or above optimalLDL 130-159 mg/dL Borderline highLDL 160-189 mg/dL HighLDL greater than 189 mg/dL Very high Cholesterol in VLDL Calc [Ma ss/Vol]Ordered By: Orlin Freeman on 05-16-2023 Cholesterol in VLDL [Mass/Vol] 19 mg/dL [facility] Comprehensive Metabolic Pane haroldo 05-16-2023 Albumin [Mass/Vol] 4.3 g/dL Normal 3.5-5.7 [facility] Comment on above: Performed By: #### C BC, BMP, LIPASE, HEPATIC #### [facility] [address] Albumin/Globulin [Mass ratio] 1.8 {ratio} Normal [facility] Comment on above: Performed By: #### C BC, BMP, LIPASE, HEPATIC #### [facility] [address] [place] [address] [place] ALP [Catalytic activity/Vol] 109 U/L High 34-104 [facility] Comment on above: Performed By: #### C BC, BMP, LIPASE, HEPATIC #### [facility] [address] [place] [id number] [place] ALT [Catalytic activity/Vol] 25 U/L Normal 7-52 [facility] Comment on above: Performed By: #### C BC, BMP, LIPASE, HEPATIC #### [facility] [address] [place] [id number] [place] Anion gap [Moles/Vol] 9.7 mmol/L Normal 6.0-15.0 [facility] Comment on above: Performed By: #### C BC, BMP, LIPASE, HEPATIC #### [facility] [address] AST [Catalytic activity/Vol] 25 U/L Normal 13-39 [facility] Comment on above: Performed By: #### C BC, BMP, LIPASE, HEPATIC #### [facility] [address] Bilirubin [Mass/Vol] 0.8 mg/dL Normal 0.3-1.0 [facility] Comment on above: Performed By: #### C BC, BMP, LIPASE, HEPATIC #### [facility] [address] Calcium [Mass/Vol] 9.2 mg/dL Normal 8.6-10.3 [facility] Comment on above: Performed By: #### C BC, BMP, LIPASE, HEPATIC #### [facility] [address] Chloride [Moles/Vol] 106 mmol/L Normal 98-107 [facility] Comment on above: Performed By: #### C BC, BMP, LIPASE, HEPATIC #### [facility] [address] CO2 [Moles/Vol] 29.5 mmol/L Normal 21.0-31.0 [facility] Comment on above: Performed By: #### C BC, BMP, LIPASE, HEPATIC #### [facility] [address] Creatinine [Mass/Vol] 0.78 mg/dL Normal 0.60-1.20 [facility] Comment on above: Performed By: #### C BC, BMP, LIPASE, HEPATIC #### [facility] [address] [place] [address] [place] GFR/1.73 sq M.predicted MDRD (S/P/Bld) [Vol rate/Area] mL/min/{1.73_m2} Normal [facility] Comment on above: Performed By: #### C BC, BMP, LIPASE, HEPATIC #### [facility] [address] [place] [address] [place] Globulin (S) [Mass/Vol] 2.4 g/dL Normal [facility] Comment on above: Performed By: #### C BC, BMP, LIPASE, HEPATIC #### [facility] [address] [place] [address] [place] Glucose [Mass/Vol] 104 mg/dL High 70-100 [facility] Comment on above: Result Comment: [place] Glucose Reference Range is dependent on time and content of last meal. Glucose of more than 200 mg/dL in a nonstressed, ambulatory subject supports the diagnosis of Diabetes Mellitus. ADA recommended reference range Performed By: #### C BC, BMP, LIPASE, HEPATIC #### [facility] [address] Potassium [Moles/Vol] 4.2 mmol/L Normal 3.5-5.1 [facility] Comment on above: Performed By: #### C BC, BMP, LIPASE, HEPATIC #### [facility] [address] Protein [Mass/Vol] 6.7 g/dL Normal 6.4-8.9 [facility] Comment on above: Performed By: #### C BC, BMP, LIPASE, HEPATIC #### [facility] [address] [place] [address] [place] Sodium [Moles/Vol] 141 mmol/L Normal 136-145 [facility] Comment on above: Performed By: #### C BC, BMP, LIPASE, HEPATIC #### [facility] [address] [place] [address] [place] Urea nitrogen [Mass/Vol] 15 mg/dL Normal 7-25 [facility] Comment on above: Performed By: #### C BC, BMP, LIPASE, HEPATIC #### [facility] [address] [place] [address] [place] Creatinine [Mass/volume] in Serum or PlasmaOrdered By: Orlin Freeman on 05-16-2023 Creatinine [Mass/Vol] 0.78 mg/dL 0.60-1.20 [facility] Erythrocyte distribution wid th Auto (RBC) [Ratio]Ordered By: Orlin Freeman on 05-16-2023 Erythrocyte distribution width (RBC) [Ratio] 12.9 % 11.9-15.3 [facility] Globulin Calc (S) [Mass/Vol] Ordered By: Orlin Freeman on 05-16-2023 Globulin (S) [Mass/Vol] 2.4 g/dL [facility] Glucose [Mass/volume] in Ser um or PlasmaOrdered By: Orlin Freeman on 05-16-2023 Glucose [Mass/Vol] 104 mg/dL 70-100 [facility] Comment on above: ADA recommended refe rence rangeRandom Glucose Reference Range is dependent on time and content of last meal. Glucose of more than 200 mg/dL in a nonstressed, ambulatory subject supports the diagnosis of Diabetes Mellitus. Glucose mean value [Mass/vol ume] in Blood Estimated from glycated hemoglobinOrdered By: Orlin Freeman on 05-16-2023 Average glucose Estimated from glycated hemoglobin (Bld) [Mass/Vol] 128 mg/dL [facility] HIV 1/O/2 Antigen/Antibodyon 05-16-2023 HIV Screen 4th Generation Non-Reactive Normal Non Reactive [facility] Comment on above: Result Comment: HIV Negative HIV-1/HIV-2 antibodies and HIV-1 p24 antigen were NOT detected. There is no laboratory evidence of HIV infection. Performed at: [facility] [place] [address] Co[employer] Machine Feeder: Thiago Anderson PhD, Phone: [phone] PERFORMED BY: [place] [address] PATHOLOGIST STOVE REFINISHER REG DRISCOLL M.D. Performed By: #### C BC, BMP, LIPASE, HEPATIC #### [address] HIV 1 and HIV-2 antibody ass ay with HIV-1 p24 antigen detectionOrdered By: Orlin Freeman on 05-16-2023 HIV 1+2 Ab+HIV1 p24 Ag IA Ql Non-Reactive Non Reactive [facility] Comment on above: HIV NegativeHIV-1/HI V-2 antibodies and HIV-1 p24 antigen were NOTdetected. There is no laboratory evidence of HIV infection.Performed at: [facility] [address] [id number] Director: Thiago Anderson PhD, Phone: [phone] Hematocrit Auto (Bld) [Volum e fraction]Ordered By: Orlin Freeman on 05-16-2023 Hematocrit (Bld) [Volume fraction] 40.3 % 34.0-46.4 [facility] Hemoglobin A1c percentageOrd ered By: Orlin Freeman on 05-16-2023 HbA1c (Bld) [Mass fraction] 6.1 % 4.3-5.6 [facility] Comment on above: Increased risk for d iabetes: 5.7 - 6.4diabetes: >6.4glycemic control for adults with diabetes: <7.0 Hemoglobin [Mass/volume] in BloodOrdered By: Orlin Freeman on 05-16-2023 Hemoglobin (Bld) [Mass/Vol] 13.6 g/dL 11.8-15.4 [facility] Hemogram CBC Without Diffon 05-16-2023 Erythrocyte distribution width (RBC) [Ratio] 12.9 % Normal 11.9-15.3 [facility] Comment on above: Performed By: #### C BC, BMP, LIPASE, HEPATIC #### [facility] [address] Hematocrit (Bld) [Volume fraction] 40.3 % Normal 34.0-46.4 [facility] Comment on above: Performed By: #### C BC, BMP, LIPASE, HEPATIC #### [facility] [address] [place] [address] [place] Hemoglobin (Bld) [Mass/Vol] 13.6 g/dL Normal 11.8-15.4 [facility] Comment on above: Performed By: #### C BC, BMP, LIPASE, HEPATIC #### [facility] [address] [place] [address] [place] MCH (RBC) [Entitic mass] 30.6 pg Normal 24.7-34.3 [facility] Comment on above: Performed By: #### C BC, BMP, LIPASE, HEPATIC #### [facility] [address] [place] [address] [place] MCV (RBC) [Entitic vol] 90.7 fL Normal 80-100 [facility] Comment on above: Performed By: #### C BC, BMP, LIPASE, HEPATIC #### [address] Mean Corpuscular HGB Conc 33.8 g/dL Normal 32.0-35.0 [facility] Comment on above: Performed By: #### C BC, BMP, LIPASE, HEPATIC #### [address] Platelet mean volume (Bld) [Entitic vol] 8.5 fL Normal 6.3-10.7 [facility] Comment on above: Result Comment: PERF ORMED BY: [place] [address] PATHOLOGIST STOVE REFINISHER REG DRISCOLL M.D. Performed By: #### C BC, BMP, LIPASE, HEPATIC #### [address] Platelets (Bld) [#/Vol] 187 10*3/uL Normal 150-450 [facility] Comment on above: Performed By: #### C BC, BMP, LIPASE, HEPATIC #### [address] RBC (Bld) [#/Vol] 4.44 10*6/uL Normal 3.60-5.00 [facility] Comment on above: Performed By: #### C BC, BMP, LIPASE, HEPATIC #### [address] WBC (Bld) [#/Vol] 6.0 10*3/uL Normal 3.8-11.6 [facility] Comment on above: Performed By: #### C BC, BMP, LIPASE, HEPATIC #### [address] Hep C Ab wRfx to Qnt PCRon 1 Hepatitis C Virus Antibody Non-Reactive Normal Non Reactive [facility] Comment on above: Performed By: #### C BC, BMP, LIPASE, HEPATIC #### [facility] [address] Interpretation Hepatitis C Normal . [facility] Comment on above: Result Comment: Not infected with HCV unless early or acute infection is suspected (which may be delayed in an immunocompromised individual), or other evidence exists to indicate HCV infection. Performed at: - [facility] [id number] Co[employer] Machine Feeder: Thiago Anderson PhD, Phone: [phone] PERFORMED BY: [place] [address] PATHOLOGIST STOVE REFINISHER REG DRISCOLL M.D. Performed By: #### C BC, BMP, LIPASE, HEPATIC #### [address] Hepatitis C virus IgG Ab [Pr esence] in Serum or Plasma by ImmunoassayOrdered By: Orlin Freeman on 05-16-2023 HCV IgG IA Ql Non-Reactive Non Reactive [facility] Leukocytes [#/volume] correc kyra for nucleated erythrocytes in Blood by Automated counOrdered By: Orlin Freeman on 05-16-2023 WBC corrected for nucl RBC Auto (Bld) [#/Vol] 6.0 10*3/uL 3.8-11.6 [facility] Lipid Panelon 05-16-2023 Cholesterol [Mass/Vol] 156 mg/dL Normal 140-200 [facility] Comment on above: Result Comment: Chol less than 200 mg/dl low risk Chol 201-239 mg/dl borderline risk Chol 240 mg/dl and greater high risk Performed By: #### C BC, BMP, LIPASE, HEPATIC #### [address] Cholesterol in HDL [Mass/Vol] 53 mg/dL Normal 23-92 [facility] Comment on above: Result Comment: HDL CHOL ATP-III CLASSIFICATION Cardiovascular Risk HDL > or equal to 60 mg/dL LOW HDL < 40 mg/dL HIGH Performed By: #### C BC, BMP, LIPASE, HEPATIC #### [address] Cholesterol.total/Chol esterol in HDL [Mass ratio] 2.9 {ratio} Normal <5.0 [facility] Comment on above: Performed By: #### C BC, BMP, LIPASE, HEPATIC #### [facility] [address] LDL Cholesterol,Calculated 84 mg/dL Normal 0-100 [facility] Comment on above: Result Comment: LDL ATP III CLASSIFICATION LDL less than 100 mg/dL Optimal LDL 100-129 mg/dL Near or above optimal LDL 130-159 mg/dL Borderline high LDL 160-189 mg/dL High LDL greater than 189 mg/dL Very high Performed By: #### C BC, BMP, LIPASE, HEPATIC #### [facility] [address] Triglyceride w/Reflex 95 mg/dL Normal 0-149 [facility] Comment on above: Result Comment: TRIG ATP III CLASSIFICATION TRIG less than 150 mg/dL Normal TRIG 150-199 mg/dL Borderline high TRIG 200-500 mg/dL High TRIG greater than 500 mg/dL Very high Standard traceable to the Center for Disease Conrtrol and Prevention (CDC) test method. Performed By: #### C BC, BMP, LIPASE, HEPATIC #### [facility] [address] VLDL CHOLESTEROL 19 mg/dL Normal [facility] Comment on above: Performed By: #### C BC, BMP, LIPASE, HEPATIC #### [facility] [address] MCH Auto (RBC) [Entitic mass ]Ordered By: Orlin Freeman on 05-16-2023 MCH (RBC) [Entitic mass] 30.6 pg 24.7-34.3 [facility] MCHC Auto (RBC) [Mass/Vol]Or dered By: Orlin Freeman on 05-16-2023 MCHC (RBC) [Mass/Vol] 33.8 g/dL 32.0-35.0 [facility] MCV Auto (RBC) [Entitic vol] Ordered By: Orlin Freeman on 05-16-2023 MCV (RBC) [Entitic vol] 90.7 fL 80-100 [facility] No Panel InformationOrdered By: Orlin Freeman on 05-16-2023 Estimated GFR (CKD-EPI) > 60.0 mL/Min [facility] Hepatitis C Interpretation See comment . [facility] Comment on above: Not infected with HC V unless early or acute infection issuspected (which may be delayed in an immunocompromisedindividual), or other evidence exists to indicate HCVinfection.Performed at: [facility] [address] [id number] Director: Thiago Anderson PhD, Phone: [phone] Pharmacy Creatinine Clearance (Chem N/A [facility] Platelet mean volume Auto (B ld) [Entitic vol]Ordered By: Orlin Freeman on 05-16-2023 Platelet mean volume (Bld) [Entitic vol] 8.5 fL 6.3-10.7 [facility] Platelets Auto (Bld) [#/Vol] Ordered By: Orlin Freeman on 05-16-2023 Platelets (Bld) [#/Vol] 187 10*3/uL 150-450 [facility] Potassium [Moles/volume] in Serum or PlasmaOrdered By: Orlin Freeman on 05-16-2023 Potassium [Moles/Vol] 4.2 mmol/L 3.5-5.1 [facility] Protein [Mass/volume] in Ser um or PlasmaOrdered By: Orlin Freeman on 05-16-2023 Protein [Mass/Vol] 6.7 g/dL 6.4-8.9 [facility] RBC Auto (Bld) [#/Vol]Ordere d By: Orlin Freeman on 05-16-2023 RBC (Bld) [#/Vol] 4.44 10*6/uL 3.60-5.00 [facility] Serum or plasma albumin/glob ulin mass ratioOrdered By: Orlin Freeman on 05-16-2023 Albumin/Globulin [Mass ratio] 1.8 {ratio} [facility] Serum or plasma anion gap de terminationOrdered By: Orlin Freeman on 05-16-2023 Anion gap [Moles/Vol] 9.7 mmol/L 6.0-15.0 [facility] Serum or plasma high density lipoprotein (HDL) cholesterol measurementOrdered By: Orlin Freeman on 05-16-2023 Cholesterol in HDL [Mass/Vol] 53 mg/dL 23-92 [facility] Comment on above: HDL CHOL ATP-III CLA SSIFICATION Cardiovascular RiskHDL > or equal to 60 mg/dL LOWHDL < 40 mg/dL HIGH Serum or plasma total choles terol/high density lipoprotein (HDL) cholesterol mass ratOrdered By: Orlin Freeman on 05-16-2023 Cholesterol.total/Chol esterol in HDL [Mass ratio] 2.9 {ratio} <5.0 [facility] Sodium [Moles/volume] in Ser um or PlasmaOrdered By: Orlin Freeman on 05-16-2023 Sodium [Moles/Vol] 141 mmol/L 136-145 [facility] Thyroid Stimulating Hormoneo n 05-16-2023 TSH Qn 2.21 m[IU]/L Normal 0.45-5.33 [facility] Comment on above: Result Comment: PERF ORMED BY: [place] [address] PATHOLOGIST STOVE REFINISHER REG DRISCOLL M.D. Performed By: #### C BC, BMP, LIPASE, HEPATIC #### [address] Thyrotropin [Units/volume] i n Serum or PlasmaOrdered By: Orlin Freeman on 05-16-2023 TSH Qn 2.21 m[IU]/L 0.45-5.33 [facility] Triglyceride [Mass/volume] i n Serum or PlasmaOrdered By: Orlin Freeman on 05-16-2023 Triglyceride [Mass/Vol] 95 mg/dL 0-149 [facility] Comment on above: TRIG ATP III CLASSIF ICATIONTRIG less than 150 mg/dL NormalTRIG 150-199 mg/dL Borderline highTRIG 200-500 mg/dL High TRIG greater than 500 mg/dL Very highStandard traceable to the Center for Disease Conrtrol and Prevention (CDC) test method. Urea nitrogen [Mass/volume] in Serum or PlasmaOrdered By: Orlin Freeman on 05-16-2023 Urea nitrogen [Mass/Vol] 15 mg/dL 7-25 [facility] Cardiovascular Reporton Cardiovascular Report [id number]#[id number]:[address] [facility] Consent for Procedure/Surger yon 05-14-2023 Consent for Procedure/Surgery [id number]#[id number]:[address] [facility] Discharge Instructionson Discharge Instructions [id number]#[id number]:[address] [facility] Prescriptions/Work Noteson 1 Prescriptions/Work Notes [id number]#[id number]:[address] [facility] Consent for Treatmenton 04-14 Consent for Treatment [id number]#[id number]:[address] [facility] Inpatient Clinical Summaryon 05-11-2023 Inpatient Clinical Summary [place] [id number] Clinical Summary Person Information: Name: JOY ORTIZ Age: 58 Years : 1965 Sex: Female PCP: MACK URIBE MD Marital Status: Phone: [phone] Race: White Ethnicity: Non- or Language: Chinese Visit Id: Visit Reason: I25.10, I20.0 Speciality: Acuity: Enc Type: Ambulatory/Same Day Surgery Med Service: Cardiovascular Arrival: 05/11/2023 09:31:14 Discharge: Dispo Type: Address: [address] [place] [id number] Provider Notes: Diagnosis: Problems Active Bradycardia, sinus Smoking Status: Never Smoker Functional Status: Sensory Deficits: History of Falls: Mobility Assistance Prior to Admission: Independent ADLs: Independent Current Level of Assistance for Self-Care/Mobility: Cognitive Status: Allergies allopurinol (Wheal) gabapentin (unknown) nitrofurantoin (Anaphylaxis) sulfa drugs (Unknown) sulfamethoxazole (Urticaria) (Unknown) sulfonamides (Unknown) Measurements: Height: 160 cm Weight: 97 kg Blood Pressure: Not Valued / Not Valued BMI: 37.89 kg/m2 Procedures Cardiac catheterization, left heart (05/11/2023) Immunizations No Immunizations Documented This Visit Final Med List: aspirin (aspirin 81 mg Oral EC Tab) colchicine (Mitigare 0.6 mg oral capsule) isosorbide mononitrate (isosorbide mononitrate 30 mg ER Tab) 1 Tablets By Mouth once a day (in the morning). Refills: 3. losartan (losartan 25 mg Tab) metronidazole topical (metronidazole 0.75% Vag Gel w/Appl) 1 Application Vaginal Once. minocycline (minocycline 50 mg Cap) nebivolol (nebivolol 10 mg Tab) nitroglycerin (nitroglycerin 0.4 mg SubL [place]) pantoprazole (Pantoprazole [address] Tab) rosuvastatin (rosuvastatin 40 mg Tab) sertraline (sertraline 50 mg Tab) Care Team Members: Attending Physician: Jason Puentes MD Consulting Physician: Referring Physician: Jason Puentes MD Follow up: With: Address: When: Juanita DAVIS [address] [place], [place] [phone] Business (1) 06/11/2023 9:30 AM Type Location Start [facility] Cardiology Follow Up (FT) FT[facility]Cardiology Clinic 06/11/2023 9:30 AM 06/11/2023 9:45 AM Confirmed Patient Education Information: Cardiovascular Discharge Instructions - Revised 08/04/15 (CUSTOM) [facility] Inpatient Patient Summaryon 05-11-2023 Inpatient Patient Summary [address] [id number] Patient Discharge Instructions PERSON INFORMATION Name: JOY ORTIZ Date of : 1965 Current Date: 05/11/2023 14:00:34 PHYSICIANS Admitting Physician: Jason Puentes MD Primary Care Physician: MACK URIBE MD PCP Comment: Discharge Diagnosis: Condition at Discharge: Unchanged JOY ORTIZ has been given the following list of follow-up instructions, prescriptions, and patient education materials: PATIENT FOLLOW-UP INFORMATION Diet: Discharge Activity: Discharge Restrictions: Wound Care Instructions: Remove Your Dressing In Days Call Your Doctor For: IF UNABLE TO CONTACT YOUR PHYSICIAN AND YOU FEEL IT IS AN EMERGENCY, GO TO THE NEAREST EMERGENCY ROOM OR CALL 911 Home Treatment: Devices/Equipment: Special Services: Additional Instructions: Primary Care Physician to provide the following pending test results: None Follow up: With: Address: When: [place] [address] [phone] Business (1) 06/11/2023 9:30 AM In the event that this physician does not participate in your insurance network, please consult with your insurance company to find a nearby participating provider. Type Location Start [facility] Cardiology Follow Up (FT) FT.Cardiology Clinic 06/11/2023 9:30 AM 06/11/2023 9:45 AM Confirmed Comment: ANGEL Armando DEBRA, have received the attached patient education materials/instructions and have verbalized understanding: Patient Signature Date Clinican/Nurse Signature Date HERE ARE THE MEDICATION CHANGES THAT OCCURRED DURING YOUR HOSPITAL STAY Medications to Continue with No Changes Other Medications aspirin (aspirin 81 mg Oral EC Tab) Last Dose: Ne xt Dose: colchicine (Mitigare 0.6 mg oral capsule) Last Dose: Ne xt Dose: isosorbide mononitrate (isosorbide mononitrate 30 mg ER Tab) 1 Tablets By Mouth once a day (in the morning). Refills: 3. Last Dose: Ne xt Dose: losartan (losartan 25 mg Tab) Last Dose: Ne xt Dose: metronidazole topical (metronidazole 0.75% Vag Gel w/Appl) 1 Application Vaginal Once. Last Dose: Ne xt Dose: minocycline (minocycline 50 mg Cap) Last Dose: Ne xt Dose: nebivolol (nebivolol 10 mg Tab) Last Dose: Ne xt Dose: nitroglycerin (nitroglycerin 0.4 mg SubL [place]) Last Dose: Ne xt Dose: pantoprazole (Pantoprazole [address] Tab) Last Dose: Ne xt Dose: rosuvastatin (rosuvastatin 40 mg Tab) Last Dose: Ne xt Dose: sertraline (sertraline 50 mg Tab) Last Dose: Ne xt Dose: Comment: MEDICATION LIST PROVIDED FOR YOU IS A LIST OF YOUR CURRENT MEDICATIONS. PLEASE CARRY THIS WITH YOU AT ALL TIMES. aspirin (aspirin 81 mg Oral EC Tab) colchicine (Mitigare 0.6 mg oral capsule) isosorbide mononitrate (isosorbide mononitrate 30 mg ER Tab) 1 Tablets By Mouth once a day (in the morning). Refills: 3. losartan (losartan 25 mg Tab) metronidazole topical (metronidazole 0.75% Vag Gel w/Appl) 1 Application Vaginal Once. minocycline (minocycline 50 mg Cap) nebivolol (nebivolol 10 mg Tab) nitroglycerin (nitroglycerin 0.4 mg SubL [place]) pantoprazole (Pantoprazole [address] Tab) rosuvastatin (rosuvastatin 40 mg Tab) sertraline (sertraline 50 mg Tab) Pharmacy Information: Comment: PATIENT EDUCATION INFORMATION Instructions: [place], [place] DISCHARGE INSTRUCTIONS Diet: ? Resume pre-procedure diet. ? Increase water intake the next 2 days to flush dye out of the body. Activity: ? Limit activity today. Do not operate a vehicle, machinery or power tools. ? NO LIFTING OVER 10 POUNDS (a gallon of milk weighs 8 pounds) for 3 days. ? Limit climbing stairs, bending, squatting and stooping for 3 days. ? May resume driving in 24 hours. ? Let pain/discomfort guide your activity. If you are having pain, stop. Medications: ? Resume pre-procedure medication, unless otherwise directed. *Minimal pain, soreness and/or discomfort is expected. *You may take OTC non-steroidal anti-inflammatory to manage discomfort, unless contraindicated. If pain is not controlled with the above medications, contact your physician. Wound Care: ? Do not remove dressing for 24 hours unless it becomes saturated, then replace. ? Keep site clean and dry; inspect site daily. ? May shower 24 hours after the pro (more content not included)... Normal [facility] Patient Education - Texton 0 05-11-2023 Patient Education - Text [place], [place] DISCHARGE INSTRUCTIONS Diet: ? Resume pre-procedure diet. ? Increase water intake the next 2 days to flush dye out of the body. Activity: ? Limit activity today. Do not operate a vehicle, machinery or power tools. ? NO LIFTING OVER 10 POUNDS (a gallon of milk weighs 8 pounds) for 3 days. ? Limit climbing stairs, bending, squatting and stooping for 3 days. ? May resume driving in 24 hours. ? Let pain/discomfort guide your activity. If you are having pain, stop. Medications: ? Resume pre-procedure medication, unless otherwise directed. *Minimal pain, soreness and/or discomfort is expected. *You may take OTC non-steroidal anti-inflammatory to manage discomfort, unless contraindicated. If pain is not controlled with the above medications, contact your physician. Wound Care: ? Do not remove dressing for 24 hours unless it becomes saturated, then replace. ? Keep site clean and dry; inspect site daily. ? May shower 24 hours after the procedure. Clean site with soap and water. Pat dry and apply band aid. No tub baths, swimming or hot tubs for 3 days. ? Notify Physician if excessive bleeding, signs/symptoms of infection (warmth at site, fever, redness) or excessive pain at site. Post Procedure: ? Soreness and tenderness to the site can last up to one week. ? Bruising may occur to groin. ? Keep follow-up appointment. ? No smoking for 24 hours as it increases the risk of developing blood clots. ? If you are interested in smoking cessation, contact [facility] at [phone], ext. [phone]. ? In the event you are unable to reach your physician, please call [facility] at [phone] and the directional drill operator will assist you. ___ Discharging Nurse Physician ___ Date/Time Patient or Responsible Constitution Party Revised 03-20, 11-19, 08-25, 12-15 Normal [facility] Auto Diffon 05-05-2023 Basophils/100 WBC (Bld) 1.5 % Normal 0.0-2.0 [facility] Comment on above: Order Comment: Order Added by Discern Expert. Performed By: #### 1 [id number], [id number], 5231990, 3006268 ####[address] [address] Basophils/Leukocytes Auto (Bld) [Pure # fraction] 0.1 E9/L Normal 0.0-0.2 [facility] Comment on above: Order Comment: Order Added by Discern Expert. Performed By: #### 1 [id number], 0146085, 8610745, 7265518 ####[address] [address] Eosinophils/100 WBC (Bld) 5.9 % Normal 0.0-8.0 [facility] Comment on above: Order Comment: Order Added by Danilo Expert. Performed By: #### 1 [id number], 1477356, 1982261, 7699267 ####[address] [address] Eosinophils/Leukocytes Auto (Bld) [Pure # fraction] 0.3 E9/L Normal 0.0-0.5 [facility] Comment on above: Order Comment: Order Added by Danilo Expert. Performed By: #### 1 [id number], 2065873, 3748462, 4031063 ####[address] [address] Lymphocytes/100 WBC (Bld) 30.1 % Normal 14.0-50.0 [facility] Comment on above: Order Comment: Order Added by Discern Expert. Performed By: #### 1 [id number], 7969628, 1316687, 5656165 ####[address] [address] Lymphocytes/Leukocytes Auto (Bld) [Pure # fraction] 1.7 E9/L Normal 1.0-4.0 [facility] Comment on above: Order Comment: Order Added by Discern Expert. Performed By: #### 1 2937666, 6732756, 4474044, 4156569 ####[address] [place] [address] Monocytes/100 WBC (Bld) 4.7 % Normal 4.0-14.0 [facility] Comment on above: Order Comment: Order Added by Discern Expert. Performed By: #### 1 2164816, 4819467, 1870435, 7458293 ####[address] [place] [address] Monocytes/Leukocytes Auto (Bld) [Pure # fraction] 0.3 E9/L Normal 0.2-1.0 [facility] Comment on above: Order Comment: Order Added by Discern Expert. Performed By: #### 1 1826875, 6852102, 6451292, 4215704 ####[address] [address] Neutrophils/100 WBC (Bld) 57.8 % Normal 36.0-75.0 [facility] Comment on above: Order Comment: Order Added by Discern Expert. Performed By: #### 1 8706423, 4376875, 0455604, 8140690 ####[address] [place] [address] Neutrophils/Leukocytes Auto (Bld) [Pure # fraction] 3.3 E9/L Normal 2.0-7.5 [facility] Comment on above: Order Comment: Order Added by Discern Expert. Performed By: #### 1 4602995, 2749943, 0393553, 8465120 ####[address] [place] [address] BMPon 05-05-2023 Anion gap [Moles/Vol] 10 mmol/L Normal 6-16 [facility] Comment on above: Performed By: #### 1 7444730, 1774239, 7428756, 0237999 ####[address] [place] [address] Calcium [Mass/Vol] 9.1 mg/dL Normal 8.9-11.1 [facility] Comment on above: Performed By: #### 1 4496320, 3594113, 2493919, 7553710 ####[facility] [address] [place] [address] Chloride [Moles/Vol] 104 mmol/L Normal 101-111 [facility] Comment on above: Performed By: #### 1 5803310, 6236466, 1034141, 8459799 ####[facility] [address] [place] [address] CO2 [Moles/Vol] 28 mmol/L Normal 21-31 [facility] Comment on above: Performed By: #### 1 0342484, 2194516, 4474063, 4723653 ####[facility] [address] [place] [address] Creatinine [Mass/Vol] 1.0 mg/dL Normal 0.5-1.3 [facility] Comment on above: Performed By: #### 1 3503789, 4357176, 4492332, 4891420 ####[facility] [address] [place] [address] Glucose [Mass/Vol] 158 mg/dL Normal 55-199 [facility] Comment on above: Result Comment: If t his glucose result represents a fasting glucose, interpretation should refer to the following reference range: 55-99 mg/dL Performed By: #### 1 0728318, 6588864, 6489039, 8367107 ####[facility] [address] [place] [address] Potassium [Moles/Vol] 4.2 mmol/L Normal 3.5-5.3 [facility] Comment on above: Performed By: #### 1 5746816, 3990782, 3506450, 4299090 ####[facility] [address] [place] [address] Sodium [Moles/Vol] 138 mmol/L Normal 135-145 [facility] Comment on above: Performed By: #### 1 1496740, 5661650, 0767598, 2025578 ####[facility] [address] [place] [address] Urea nitrogen [Mass/Vol] 19 mg/dL Normal 5-21 [facility] Comment on above: Performed By: #### 1 1160310, 9147406, 4581726, 2252714 ####[facility] [address] [place] [address] Urea nitrogen/Creatinine [Mass ratio] 19 No Units Normal 10-20 [facility] Comment on above: Performed By: #### 1 3032488, 3143088, 1248289, 7762663 ####[facility] [address] [place] [address] CBC w/ Auto Diffon 3 Erythrocyte distribution width (RBC) [Ratio] 12.8 % Normal 10.9-14.2 [facility] Comment on above: Performed By: #### 1 3641458, 1532108, 6796813, 2392724 ####[address] Hematocrit (Bld) [Volume fraction] 43.0 % Normal 34.0-46.0 [facility] Comment on above: Performed By: #### 1 1164473, 6404210, 8023245, 9628051 ####[facility] [address] [place] [address] Hemoglobin (Bld) [Mass/Vol] 14.4 g/dL Normal 12.0-16.0 [facility] Comment on above: Performed By: #### 1 5930361, 5910411, 9733638, 2566312 ####[facility] [address] [place] [address] MCH (RBC) [Entitic mass] 30.3 pg Normal 27.0-34.0 [facility] Comment on above: Performed By: #### 1 1850175, 5221994, 0839075, 7481993 ####[facility] [address] [place] [address] MCHC (RBC) [Mass/Vol] 33.4 g/dL Normal 31.4-36.0 [facility] Comment on above: Performed By: #### 1 2815655, 8425590, 3130909, 6293401 ####[address] [place] [address] MCV (RBC) [Entitic vol] 90.9 fL Normal 80.0-100.0 [facility] Comment on above: Performed By: #### 1 0127104, 3575422, 1040509, 8298402 ####[address] [place] [id number] Platelet mean volume (Bld) [Entitic vol] 8.8 fL Normal 6.4-10.8 [facility] Comment on above: Performed By: #### 1 5194959, 8553231, 9977080, 7253068 ####[address] Platelets (Bld) [#/Vol] 213.0 E9/L Normal 150.0-500. 0 [facility] Comment on above: Performed By: #### 1 8097806, 6235303, 8976791, 9815561 ####[address] [address] RBC (Bld) [#/Vol] 4.7 E12/L Normal 4.3-5.9 [facility] Comment on above: Performed By: #### 1 9666724, 0209876, 3924251, 3755157 ####[address] [address] WBC corrected for nucl RBC Auto (Bld) [#/Vol] 5.7 E9/L Normal 4.0-11.0 [facility] Comment on above: Performed By: #### 1 6753161, 7521783, 6572249, 0824508 ####[address] [address] CHEMISTRYOrdered By: SYSTEM SYSTEM on 05-05-2023 Anion gap [Moles/Vol] 10 mmol/L Normal 6 - 16 mEq/L [facility] Remisol Calcium [Mass/Vol] 9.1 mg/dL Normal 8.9 - 11. 1 mg/dL [facility] Chloride [Moles/Vol] 104 mmol/L Normal 101 - 1 11 mmol/L [facility] CO2 [Moles/Vol] 28 mmol/L Normal 21 - 31 mmol/L [facility] Remisol Creatinine [Mass/Vol] 1.0 mg/dL Normal 0.5 - 1.3 mg/dL [facility] GFR/1.73 sq M.predicted among non-blacks MDRD (S/P/Bld) [Vol rate/Area] 65 mL/min/1.73 m2 Normal >=59mL/min /1.73 m2 [facility] Chem S Glucose [Mass/Vol] 158 mg/dL Normal 55 - 199 mg/dL [facility] Potassium [Moles/Vol] 4.2 mmol/L Normal 3.5 - 5.3 mmol/L [facility] Sodium [Moles/Vol] 138 mmol/L Normal 135 - 145 mmol/L [facility] Urea nitrogen [Mass/Vol] 19 mg/dL Normal 5 - 21 mg/dL [facility] Urea nitrogen/Creatinine [Mass ratio] 19 mg/mg Normal 10 - 20 [facility] Consent for Treatmenton 04-14 Consent for Treatment [id number]#[id number]:127 Normal [facility] Consent for Treatment [id number]#[id number]:127 Normal [facility] HEMATOLOGYOrdered By: SYSTEM SYSTEM on 05-05-2023 Basophils/100 WBC (Bld) 1.5 % Normal 0.0 - 2.0 % [facility] HemeAutoSS Basophils/Leukocytes Auto (Bld) [Pure # fraction] 0.1 E9/L Normal 0.0 - 0.2 E9/L [facility] HemeAutoSS Eosinophils/100 WBC (Bld) 5.9 % Normal 0.0 - 8.0 % [facility] HemeAutoSS Eosinophils/Leukocytes Auto (Bld) [Pure # fraction] 0.3 E9/L Normal 0.0 - 0.5 E9/L [facility] HemeAutoSS Lymphocytes/100 WBC (Bld) 30.1 % Normal 14.0 - 50.0 % [facility] HemeAutoSS Lymphocytes/Leukocytes Auto (Bld) [Pure # fraction] 1.7 E9/L Normal 1.0 - 4.0 E9/L [facility] HemeAutoSS Monocytes/100 WBC (Bld) 4.7 % Normal 4.0 - 14.0 % [facility] HemeAutoSS Monocytes/Leukocytes Auto (Bld) [Pure # fraction] 0.3 E9/L Normal 0.2 - 1.0 E9/L [facility] HemeAutoSS Neutrophils/100 WBC (Bld) 57.8 % Normal 36.0 - 75.0 % [facility] HemeAutoSS Neutrophils/Leukocytes Auto (Bld) [Pure # fraction] 3.3 E9/L Normal 2.0 - 7.5 E9/L [facility] HemeAutoSS HEMATOLOGYOrdered By: Juliana Mitchell on 05-05-2023 Erythrocyte distribution width (RBC) [Ratio] 12.8 % Normal 10.9 - 14.2 % [facility] HemeAutoSS Hematocrit (Bld) [Volume fraction] 43.0 % Normal 34.0 - 46.0 % [facility]eAutoSS Hemoglobin (Bld) [Mass/Vol] 14.4 g/dL Normal 12.0 - 16.0 gm/dL [facility] HemeAutoSS MCH (RBC) [Entitic mass] 30.3 pg Normal 27.0 - 34.0 pg [facility]eAutoSS MCHC (RBC) [Mass/Vol] 33.4 g/dL Normal 31.4 - 36.0 gm/dL [facility]eAutoSS MCV (RBC) [Entitic vol] 90.9 fL Normal 80.0 - 100.0 fL [facility] HemeAutoSS Platelet mean volume (Bld) [Entitic vol] 8.8 fL Normal 6.4 - 10.8 fL [facility] HemeAutoSS Platelets (Bld) [#/Vol] 213.0 E9/L Normal 150.0 - 500.0 E9/L [facility] HemeAutoSS RBC (Bld) [#/Vol] 4.7 E12/L Normal 4.3 - 5.9 E12/L [facility] HemeAutoSS WBC corrected for nucl RBC Auto (Bld) [#/Vol] 5.7 E9/L Normal 4.0 - 11.0 E9/L [facility] HemeAutoSS eGFRon 05-05-2023 GFR/1.73 sq M.predicted among non-blacks MDRD (S/P/Bld) [Vol rate/Area] 65 mL/min/1.73 m2 Normal >=59 [facility] Comment on above: Order Comment: Order added by Discern Expert. Result Comment: Nocturnist Physician sandra kidney disease could be indicated at eGFR's of less than 60 mL/min/1.73m2. Kidney failure is indicated at less than 15 mL/min/1.73m2. Performed By: #### 1 [id number], 2483630, 7067950, 3200797 ####[facility] [address] [place] [address] Insurance Correspondenceon 0 05-04-2023 Insurance Correspondence [id number]#[id number]:127 Normal [facility] Physician Orderon 05-04-2023 Physician Order [id number]#[id number]:127 Normal [facility] Ambulatory Visit Summaryon 0 05-03-2023 Ambulatory Visit Summary JOY ORTIZ :1965 Visit Date:05/03/2023 Ambulatory Visit Instructions Your Care Team Attending Physician - Deloris TRENT, Jason Bishop Primary Care Physician - JOJO TRENT, MACK Leiva Referring Physician - NONE, XXXX This Is Your Medications List aspirin (aspirin 81 mg Oral EC Tab) colchicine (Mitigare 0.6 mg oral capsule) losartan (losartan 25 mg Tab) metronidazole topical (metronidazole 0.75% Vag Gel w/Appl) minocycline (minocycline 50 mg Cap) nebivolol (nebivolol 10 mg Tab) nitroglycerin (nitroglycerin 0.4 mg SubL [place]) pantoprazole (Pantoprazole [address] Tab) rosuvastatin (rosuvastatin 40 mg Tab) sertraline (sertraline 50 mg Tab) Procedures Performed Abdominal hysterectomy, Cholecystectomy, Colonoscopy, Hiatal hernia. Discharge Vitals Heart Rate (Peripheral) 62 Blood Pressure 126/74 Height 160 cm Height 63 in Weight 97 kg Weight 213.4 lb BMI 37.89 Medications What How Much When Instructions Unchanged aspirin (aspirin 81 mg Oral EC Tab) Unchanged colchicine (Mitigare 0.6 mg oral capsule) Unchanged losartan (losartan 25 mg Tab) Unchanged metronidazole topical (metronidazole 0.75% Vag Gel w/ Appl) 1 Application Vaginal Once Unchanged minocycline (minocycline 50 mg Cap) Unchanged nebivolol (nebivolol 10 mg Tab) Unchanged nitroglycerin (nitroglycerin 0.4 mg SubL [place]) Unchanged pantoprazole (Pantoprazole [address] Tab) Unchanged rosuvastatin (rosuvastatin 40 mg Tab) Unchanged sertraline (sertraline 50 mg Tab) Allergies No Known Allergies Problems Ongoing - Any problem that you are currently receiving treatment for. Bradycardia, sinus [facility] Consent for Treatmenton 04-14 Consent for Treatment [id number]#[id number]:[address] [facility] CNOVon 04-20-2023 CNOV Office Visit (RHEUMN ) JOY ORTIZ ([id number]) 1965 F Date Time Provider Department 04/20/23 1:00 PM MONAE FINNEY RHEUMN During your visit today, we recorded the following information about you: Pulse Blood pressure Weight Height 55/minute 134/83 96.1 kg 1.6 m Monae Finney MD 04/20/2023 8:18 PM Signed Rheumatology History AND Physical Patient name: Joy Ortiz Requesting provider: No att. providers found SUBJECTIVE History of Present Illness: Ms. Joy Ortiz is a 58 year old female who has a past medical history of Asthma, Bradycardia, CAD, Carpal tunnel syndrome, osteoarthritis anxiety/depression, Diverticulitis, peptic ulcer disease, HTN, HLD, Pneumonia, WOLF, COVID-19 virus, gout who presents for rheumatologic evaluation. Patient previously evaluated by Dr. Cao, NEEMA Colon - new to me. PSHx: She has a past surgical history that includes total abdominal hysterect w/wo rmvl tube ovary (1989); salpingo-oophorectomy compl/prtl uni/bi spx (1994); cardiac catheterization hx (08/2012); left heart cath (05/12/2014); colonoscopy (05/29/2014); lexiscan stress test panel (05/20/2015); echo (05/20/2015); colectomy partial w/anastomosis (2017); and hernia repair hx (Bilateral). Allergies: She is allergic to nitrofurantoin monohyd/m-cryst, allopurinol, bactrim [sulfamethoxazole], and neurontin [gabapentin]. Current Meds: nebivolol, rosuvastatin, nitroglycerin sublingual, losartan, minocycline, metronidazole, sertraline, ergocalciferol (vitamin d2), pantoprazole dr, MEDICATION, NON-DATABASE, bifidobacterium infantis, colchicine, and aspirin, enteric coated. Family History: family history includes Cancer in her brother; Colon Cancer in her maternal grandmother; Colon Cancer (age of onset: 53) in her mother; Coronary Artery Disease in her father, paternal aunt, paternal uncle, and paternal uncle; Diabetes in her father and mother; Hypertension in her brother, father, and mother; Macular Degen in her father; No Ocular Disease in her mother; htn in her maternal grandmother; lung cancer in her maternal grandfather. Social History: She reports that she has never smoked. She has never used smokeless tobacco. She reports that she does not drink alcohol and does not use drugs. Labs: CBC Latest Ref Rng AND Units 01/10/2023 10/06/2022 08/19/2022 01/24/2022 WBC 3.70 - 11.00 k/uL 6.48 7.85 6.92 - HEMOGLOBIN 11.5 - 15.5 g/dL 12.6 14.0 14.5 13.4 HEMATOCRIT 36.0 - 46.0 % 39.0 42.8 44.0 39.3 PLATELETS 150 - 400 k/uL 206 252 250 - ABS NEUT (ANC) 1.45 - 7.50 k/uL 3.15 3.54 - - ABS LYMPH 1.00 - 4.00 k/uL 2.51 3.14 - - CMP Latest Ref Rng AND Units 01/10/2023 12/04/2022 10/06/2022 08/19/2022 NA 136 - 145 mmol/L - - - - SODIUM 136 - 144 mmol/L 142 - 142 144 K 3.5 - 5.1 mmol/L - - - - POTASSIUM 3.7 - 5.1 mmol/L 4.2 - 3.9 4.7 CHLORIDE 97 - 105 mmol/L 107(H) - 105 106(H) CO2 22 - 30 mmol/L 27 - 26 28 GLUCOSE 74 - 99 mg/dL 105(H) - 89 89 BUN 7 - 21 mg/dL 16 - 14 12 CREATININE 0.58 - 0.96 mg/dL 0.90 - 0.77 0.84 CALCIUM, TOTAL 8.5 - 10.2 mg/dL 9.5 - 9.8 9.8 AST 13 - 35 U/L 33 - 29 35 ALT 7 - 38 U/L 26 - 27 29 ALKALINE PHOSPHATASE 34 - 123 U/L 116 107 126(H) 103 Uric Acid Latest Ref Rng AND Units 10/06/2022 08/19/2022 03/15/2019 12/31/2018 URIC ACID 2.5 - 6.6 mg/dL 4.2 5.8 5.3 6.4 ESR, WSR Latest Ref Rng AND Units 10/06/2022 06/11/2017 05/28/2013 01/18/2012 WSR 0 - 20 mm/hr 2 15 17(H) 9 CRP Latest Ref Rng AND Units 10/06/2022 06/11/2017 04/05/2017 01/18/2012 CRP <0.9 mg/dL <0.3 0.8 2.1(H) 1.4(H) CK Latest Ref Rng AND Units 11/22/2015 06/05/2015 08/29/2012 08/27/2012 CK 30 - 220 U/L 84 205 168 123 RF and CCP Latest Ref Rng AND Units 06/11/2017 03/12/2012 01/18/2012 RHEUMATOID FACTOR <16 IU/mL <10 - <7 CCP ANTIBODY, IGG <20 Units - <15 - Hepatitis Screen Latest Ref Rng AND Units 03/12/2012 HEPBCOTOL NEGAT Negative HEPSABQ NEGAT Positive(A) HEPCABEIA NEGAT Negative HBSAGR NEGAT Negative TB Screen Latest Ref Rng AND Units 04/10/2016 TBTEST 0 x 0 - 10 x 10 mm 0x0 Antibodies Latest Ref Rng AND Units 10/06/2022 10/06/2022 11/06/2017 08/25/2012 KAYLA Negative - Positive(A) - - KAYLA TITER - - 1:160 - - KAYLA PATTERN - - Nuclear homogenous - - DNA ANTIBODY W/CONFIRMATION <30 IU/mL <12 <12 - - ANTI-SM <1.0 AI - <0.2 - - SM ANTIBODY Negative - Negative - - RIBOSOMAL LUNCH WAGON OPERATOR AB <1.0 AI - <0.2 - - RIBOSOMAL LUNCH WAGON OPERATOR QUAL Negative - Negative - - CHROMATIN AB <1.0 AI - <0.2 - - CHROMATIN AB QUAL Negative - Negative - - SSA ANTIBODY QUAL Negative - Negative - - ANTI-SSA <1.0 AI - <0.2 <0.2 - ANTI-SSB <1.0 AI - <0.2 <0.2 - LUNCH WAGON OPERATOR ANTIBODY QUAL Negative - Negative - - SCL-70 AB QUAL Negative - Negative - - SCL-70 ABS, EIA <1.0 AI - <0.2 - - CENTROMERE AB <1.0 AI - <0.2 - - CENTROMERE AB QUAL Negative - Negative - - VIVIAN-1 ANTIBODY, IGG <1.0 AI - <0.2 - - VIVIAN 1 ANTIBODY QUAL Negative - Negative - - PT SEC 8.4 - (more content not included)... Normal [facility] Consent for Treatmenton 03-15 Consent for Treatment [id number]#[id number]:127 Normal [facility] Insurance Correspondenceon 0 04-04-2023 Insurance Correspondence [id number]#[id number]:127 Normal [facility] Physician Orderon 04-02-2023 Physician Order [id number]#[id number]:[address] [facility] Heart and Vascular Office/Cl inic Noteon 03-30-2023 Heart and Vascular Office/Clinic Note Chief Complaint here to establish care History of Present Illness Joy Ortiz is a 58-year-old female with a history of CAD and remote PCI, hypertension, and hyperlipidemia. She has been having episodes of near syncope for about 5 months, thought to possibly relate to sinus bradycardia. EKG today actually does show heart rate of 48 beats per minute, sinus bradycardia with no ischemia. She is having occasional chest discomfort and has taken nitroglycerin within the last month. She is accompanied by an adult male. Joy had an annual well-check with Dr. Godinez and he is referring her to a bobcat driver/labor, Dr. Gillis at [facility], due to sinus bradycardia. She has been experiencing lightheadedness for the past 5 months. She initially attributed it to low blood sugar. These episodes occur randomly, and she manages them by stopping and waiting until the sensation subsides. She experiences significant lightheadedness and occasionally feels on the presyncope, but the episodes usually resolve within about 30 seconds after stopping. She denies having a syncope episode, but she occasionally stumbles. She is currently taking Bystolic. She has tried metoprolol but discontinued due to excessive drowsiness experienced while taking the medication. She states that Dr. Godinez did not perform any monitoring. Her blood pressure becomes elevated when she is not taking the beta dimple medication. She states that she has an appointment scheduled with electrophysiology around 04/26/2023. The patient is due for a stress test, but she has to finish the nuclear stress test. Joy states that after recovering from COVID-19 2 years ago, [address]. West arranged a catheterization. Dr. West indicated that although there was not an immediate need for a stent, a blockage was in the process of forming. She consents to undergo a stress test. She is uncertain about the timing of her last echocardiogram. She has occasional chest pain, but she has utilized one of her nitroglycerin tablets a month ago. Review of Systems Constitutional: no fever, no sweats, no weakness Skin: no rash, no lesions, no bruising/petechiae ENMT: no sore throat, no congestion, no hoarseness Respiratory: no shortness of breath, no cough, no orthopnea, no wheezing Cardiovascular: no palpitations, no edema Positive for occasional chest pain. Gastrointestinal: no nausea, no vomiting, no diarrhea, no GI bleeding Genitourinary: no anuria/oliguria no hematuria Musculoskeletal: no back pain, no trauma Neurologic: no headache, no dizziness, no numbness, no weakness Psychiatric: no sleeping problems, no irritability, no anxiety/depression. Heme/Lymph: no bleeding tendency, no bruising tendency Allergy/Immunologic: no recurrent infections, no impaired immunity Additional ROS info: Except as noted in the above Review of Systems and in the History of Present Illness all other systems have been reviewed and are negative or noncontributory Physical Exam Vitals & Measurements HR: 54(Peripheral) BP: 132/82 SpO2: 97% HT: 63 in HT: 160 cm WT: 96.2 kg WT: 211.64 lb BMI: 37.58 General: alert, no acute distress Skin: warm, dry intact Head: atraumatic, normocephalic Neck: trachea midline, no JVD, no bruit Eye: normal conjunctiva, sclera clear ENMT: oral mucosa moist Cardiovascular: regular rate and rhythm, no murmur, normal peripheral perfusion Respiratory: lungs CTA, respirations non labored Chest wall: no deformity. Gastrointestinal: soft, non-distended, no tenderness, no guarding. Back: no tenderness, normal ROM, normal alignment. Extremities: no edema, no deformity, no trauma Neurological: oriented x 4, LOC appropriate for age, sensation equal & normal bilaterally, speech normal Psychiatric: cooperative, affect appropriate for age, normal judgement, normal psychiatric thoughts. Assessment/Plan 1. CAD in sitka artery (I25.10: Atherosclerotic heart disease of [place] coronary artery without angina pectoris) Joy Ortiz is a 58-year-old female with a history of CAD and remote PCI, hypertension, and hyperlipidemia. She has been having episodes of near syncope for about 5 months, thought to possibly relate to sinus bradycardia. EKG today actually shows a heart rate of 48 beats per minute, sinus bradycardia with no ischemia. She is having occasional chest discomfort and has taken nitro within the last month. I think it would be reasonable to start with a transthoracic echo, Lexiscan stress test, and a 48-hour Holter monitor. We will increase her losartan and stop her Bystolic for the bradycardia. She has an EP appointment, which I think is acceptable to keep at [facility]. I would like to get some of the testing out of the way so that when she gets there, they can move from the perspective of some knowledge about what is going on. Follow up in 4 to 6 weeks in [place] office. ATTESTATION: Portions of this record may have been created with voice recognition artificial intelligence software, [employer] (more content not included)... Normal [facility] Comment on above: Result Comment: Elec tronically Signed By: Deloris TRENT, Jason Bishop\\.br\\Date and Time Signed: 03/30/23 06:31 EDT\\.br\\Electronically Co-Signed By: Maricruz Robles\\.br\\Date and Time Co-Signed: 03/29/23 12:17 EDT Consent for Treatmenton 03-13 Consent for Treatment [id number]:127 [facility] CNOVon 02-05-2023 CNOV Office Visit (CARDAV ) ANGELJOY Tisha ([id number]) 1965 F Date Time Provider Department 02/05/23 2:20 PM MATILDE GODINEZ During your visit today, we recorded the following information about you: Pulse Blood pressure Weight Height 49/minute 120/82 94.8 kg 1.6 m Matilde Godinez MD 02/05/2023 3:21 PM Signed SUBJECTIVE: Joy Hawthorne is a 56 year old female. Patient presents with: Cardiology Follow Up Joy Hawthorne was referred by Self HPI: The patient is a pleasant, 56-year-old female, with well-documented coronary artery disease, having undergone drug-eluting stent deployment to the right coronary artery in August 2013. Subsequent left heart catheterization, May 2015, revealed mild in-stent restenosis, which was treated medically. At fifth anniversary of nuclear stress testing, May 2020, there was no evidence for inducible ischemia or previous myocardial scarring, with preserved left and right ventricular size and systolic function and normal ejection fraction. The patient has been lost to follow-up for almost 2 years and presents today to reestablish. CARDIAC HISTORY: SYMPTOMS: Chest pain/discomfort: No, Palpitations:No, Arrhythmia: No Dyspnea: Yes: Dyspnea details: Moderate exertion, Dyspnea at rest: No, Nocturnal dyspnea: Yes Orthopnea: No, Diaphoresis: No, Dizziness: No, Syncope: No, Edema: No, Nocturia: Yes, Impaired exercise tolerance: Yes, Claudication:No CONDITIONS: Hypertension: Yes, Heart failure:No, [place] Heart Association Functional Classification: Class II, Atrial fibrillation:No, History of myocardial infarction/angina: Yes, History of CABG/PCI:Yes, Valvular heart disease: No, Cardiomyopathy: No, Aortic diseases: No, Peripheral vascular disease: No, History of cerebrovascular accident: No, History of pulmonary embolism No, History of DVT No. History of rheumatic fever: No, History of transient ischemic attacks: No, Congenital heart disease: No, Pericarditis: No, Pericardial Effusion: No CORONARY RISK FACTORS: Family history of coronary artery disease Yes: Family history CAD in a first degree relative father Premature onset: No, Tobacco use No, Sedentary lifestyle Yes, Hypertension Yes, Hyperlipidemia Yes, Diabetes mellitus No, Obesity Yes, Peripheral vascular disease No. HISTORIES: FAMILY HISTORY FAMILY HISTORY Problem Relation Age of Onset Colon Cancer Mother 53 Hypertension Mother Diabetes Mother Diabetes Father Coronary Artery Disease Father Multiple stents in early 60's, age 70 Hypertension Father Hypertension Brother Hypertension Brother Cancer Brother epithelioid of leg. Coronary Artery Disease Paternal Uncle Coronary Artery Disease Paternal Uncle Coronary Artery Disease Paternal Aunt PAST MEDICAL HISTORY PAST MEDICAL HISTORY Diagnosis Date Asthma dx'd 15 yrs ago- has not been on medication Atherosclerotic coronary vascular disease 05/20/2015 Lexiscan perfusion normal, EF 68%; Echo normal; Cath 05/2014 Irregularies wiith 50% rca in-stent stenosis. 09/2012 RCA CARRI X2 to prox vessel Colon polyp Cscope 05/29/14 w polyps, f/u 3 yrs. Diverticulitis Diverticulosis NARCISO (generalized anxiety disorder) HTN (hypertension) Hyperlipidemia Morbid obesity with BMI of 40.0-44.9, adult ([facility]) 08/2015 Wt. 235# BMI 41 Pneumonia Sleep apnea Vitamin D deficiency 04/09/2012 PAST SURGICAL HISTORY PAST SURGICAL HISTORY Procedure Laterality Date CARDIAC CATHETERIZATION HX -2012 stents x 2 COLONOSCOPY 05/29/14 - repeat 3 years ECHO 05/20/15 mildly dilated IVC LEFT HEART CATH 05/12/14 LEXISCAN STRESS TEST PANEL 05/20/15 NORMAL PART REMOVAL COLON W ANASTOMOSIS 2017 Sigmoidectomy REMOVAL OF OVARY/TUBE(S) 1994 Salpingo-oophorectomy TOTAL ABDOM HYSTERECTOMY 1990 Hysterectomy, DORENE SOCIAL HISTORY Social History Marital status: Spouse name: Years of education: Number of children: Social History Main Topics Smoking status: Never Smoker Smokeless status: Never Used Alcohol use: No Drug use: No Sexual activity: Not Currently Other Topics Concern Blood Transfusions No Caffeine Concern Yes Comment:3 cups per day 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 Concern No Stress Concern No Weight Concern Yes Special Diet Yes Comment:not frying, baked food only, portion control Exercise Yes Comment:joined the gym-meets with a horse trainer tomorrow Seat Belt Yes Self-Exams Yes Comment:monthly BSE 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 Normal [facility] [id number] 02-05-2023 ECG01 Ventricular Rate : 4 9 BPM Atrial Rate : 49 BPM P-R Interval : 168 ms QRS Duration : 76 ms Q-T Interval : 442 ms QTC Calculation(Bazett) : 399 ms Calculated P [place] : 62 degrees Calculated R [place] : 36 degrees Calculated T [place] : 38 degrees SINUS BRADYCARDIA OTHERWISE NORMAL ECG Confirmed by Ortega ROOT RAVISANKAR ([id number]) on 02/12/2023 5:48:07 PM NAME : JOY ORTIZ PID : [id number] : 1965 Gender : Female Race : ORD : Procedure Date : Feb 05 2023 14:46:27 Edit Date : Feb 12 2023 17:48:11 Diagnosis: SINUS BRADYCARDIA OTHERWISE NORMAL ECG Confirmed by Ortega ROOT RAVISANKAR ([id number]) on 02/12/2023 5:48:07 PM Test Reason : Location : 192 : AVCRD Overread By : Ortega ROOT RAVISANKAR Edited By : Ortega ROOT RAVISANKAR Referred By : MATILDE GODINEZ Acquired by : , [facility] [employer]son 02-01-2023 Forms [id number]:127 [facility] Forms [id number]:127 [facility] Activated partial thrombopla stin time (aPTT) in platelet poor plasma by coagulation aOrdered By: Kang Gonzalez on 01-17-2023 aPTT Coag (PPP) [Time] 28.1 s 25.1-36.5 [facility] Alanine aminotransferase [En zymatic activity/volume] in Serum or PlasmaOrdered By: Kang Gonzalez on 01-17-2023 ALT [Catalytic activity/Vol] 29 U/L 7-52 [facility] Albumin [Mass/volume] in Ser um or Plasma by Bromocresol green (BCG) dye binding methoOrdered By: Kang Gonzalez on 01-17-2023 Albumin BCG dye [Mass/Vol] 4.6 g/dL 3.5-5.7 [facility] Alkaline phosphatase [Enzyma tic activity/volume] in Serum or PlasmaOrdered By: Kang Gonzalez on 01-17-2023 ALP [Catalytic activity/Vol] 99 U/L 34-104 [facility] Aspartate aminotransferase [ Enzymatic activity/volume] in Serum or PlasmaOrdered By: Kang Gonzalez on 01-17-2023 AST [Catalytic activity/Vol] 29 U/L 13-39 [facility] Automated erythrocytes count in urine sediment (number/area)Ordered By: Kang Gonzalez on 01-17-2023 RBC Auto (Urine sed) [#/Area] 0-1 [HPF] 0-4 [facility] Automated leukocytes count i n urine sediment (number/area)Ordered By: Kang Gonzalez on 01-17-2023 WBC Auto (Urine sed) [#/Area] 3-4 [HPF] 0-4 [facility] Basic Metabolic Panelon Anion gap [Moles/Vol] 10.9 mmol/L Normal 6.0-15.0 [facility] Comment on above: Performed By: #### C BC, BMP, LIPASE, HEPATIC #### [facility] [address] Calcium [Mass/Vol] 9.5 mg/dL Normal 8.6-10.3 [facility] Comment on above: Performed By: #### C BC, BMP, LIPASE, HEPATIC #### [facility] [address] [place] [address] [place] Chloride [Moles/Vol] 106 mmol/L Normal 98-107 [facility] Comment on above: Performed By: #### C BC, BMP, LIPASE, HEPATIC #### [facility] [address] CO2 [Moles/Vol] 29.2 mmol/L Normal 21.0-31.0 [facility] Comment on above: Performed By: #### C BC, BMP, LIPASE, HEPATIC #### [facility] [address] Creatinine [Mass/Vol] 0.92 mg/dL Normal 0.60-1.20 [facility] Comment on above: Performed By: #### C BC, BMP, LIPASE, HEPATIC #### [facility] [address] [place] [address] [place] Creatinine Clr Calc Pharmacy 72.06 [facility] Comment on above: Performed By: #### C BC, BMP, LIPASE, HEPATIC #### [facility] [address] [place] [address] [place] GFR/1.73 sq M.predicted MDRD (S/P/Bld) [Vol rate/Area] mL/min/{1.73_m2} [facility] Comment on above: Performed By: #### C BC, BMP, LIPASE, HEPATIC #### [facility] [address] [place] [address] [place] Glucose [Mass/Vol] 99 mg/dL Normal 70-100 [facility] Comment on above: Result Comment: [place] Glucose Reference Range is dependent on time and content of last meal. Glucose of more than 200 mg/dL in a nonstressed, ambulatory subject supports the diagnosis of Diabetes Mellitus. ADA recommended reference range Performed By: #### C BC, BMP, LIPASE, HEPATIC #### [facility] [address] [place] [address] [place] Potassium [Moles/Vol] 4.1 mmol/L Normal 3.5-5.1 [facility] Comment on above: Performed By: #### C BC, BMP, LIPASE, HEPATIC #### [facility] [address] [place] [address] [place] Sodium [Moles/Vol] 142 mmol/L Normal 136-145 [facility] Comment on above: Performed By: #### C BC, BMP, LIPASE, HEPATIC #### [facility] [address] [place] [address] [place] Urea nitrogen [Mass/Vol] 14 mg/dL Normal 7-25 [facility] Comment on above: Performed By: #### C BC, BMP, LIPASE, HEPATIC #### [facility] [address] [place] [address] [place] Basophils Auto (Bld) [#/Vol] Ordered By: Kang Gonzalez on 01-17-2023 Basophils (Bld) [#/Vol] 0.1 10*3/uL 0.0-0.2 [facility] Basophils/100 WBC Auto (Bld) Ordered By: Kang Gonzalez on 01-17-2023 Basophils/100 WBC (Bld) 1.4 % . [facility] Bilirubin Test strip Ql (U)O rdered By: Kang Gonzalez on 01-17-2023 Bilirubin Ql (U) Negative Negative [facility] Bilirubin.direct [Mass/volum e] in Serum or PlasmaOrdered By: Kang Gonzalez on 01-17-2023 Bilirubin.direct [Mass/Vol] 0.10 mg/dL 0.03-0.18 [facility] Bilirubin.total [Mass/volume ] in Serum or PlasmaOrdered By: Kang Gonzalez on 01-17-2023 Bilirubin [Mass/Vol] 0.7 mg/dL 0.3-1.[address] [facility] [address] abdomen pelvis w conon CT abdomen pelvis w con [facility] [address] [place] [address] [place] [address] CT Scan Report Signed Patient: Joy Ortiz MR#: [id number] : 1965 Acct:[id number] Age/Sex: 57 / F ADM Date: 01/17/23 Loc: ER Room: Type: PRE ER Attending Dr: Copies to: Kang Gonzalez DO Ordering Provider: Kang Gonzalez DO Date of Service: 01/17/23 CT/CT abdomen pelvis w con: abd pain CT Abdomen and Pelvis withcontrast TECHNIQUE: Axial imaging with 2-D reconstruction.90 cc of Isovue-300. The CT exam was performed using one or more the following dose reduction techniques: Automated exposure control, adjustment of the MA and/or Kv according to patient size, or use of the iterative reconstruction technique. COMPARISON: 09/14/2022 History: Right-sided abdominal pain for 2 weeks. Nausea. LIMITATIONS: None LOWER THORAX Unremarkable LIVER: Unremarkable GALLBLADDER: Cholecystectomy clips identified. BILE DUCTS: No dilatation SPLEEN: Unremarkable PANCREAS: Unremarkable ADRENAL GLANDS: Redemonstration of small angiomyolipomas. KIDNEYS:Unremarkable AORTA: No abdominal aortic aneurysm identified. RETROPERITONEUM: No significant retroperitoneal abnormalities identified. MESENTERY:Unremarkable SMALL BOWEL: The small bowel loops are nondistended. APPENDIX: The appendix is normal. COLON: Partial distal colectomy changes. Moderate stool. URINARY BLADDER: Urinary bladder is unremarkable. REPRODUCTIVE SYSTEM: The uterus is absent. PNEUMOPERITONEUM: None PERITONEAL FLUID:None BONY STRUCTURES: Unremarkable ABDOMINAL WALL: Unremarkable CT/CT abdomen pelvis w con IMPRESSION: No acute findings. Moderate stool. Impression dictated by: Ashwin Farley M.D.01/17/2023 5:43 PM Dictation Location: [place] [address] Transcribed By: [facility] 01/17/23 174 Dictated By: Ashwin Farley DO 01/17/23 172 Signed By: 01/17/231742 Normal [facility] Calcium [Mass/volume] in Ser um or PlasmaOrdered By: Kang Gonzalez on 01-17-2023 Calcium [Mass/Vol] 9.5 mg/dL 8.6-10.3 [facility] Carbon dioxide, total [Moles /volume] in Serum or PlasmaOrdered By: Kang Gonzalez on 01-17-2023 CO2 [Moles/Vol] 29.2 mmol/L 21.0-31.0 [facility] Chloride [Moles/volume] in S storm or PlasmaOrdered By: Kang Gonzalez on 01-17-2023 Chloride [Moles/Vol] 106 mmol/L 98-107 [facility] Color Auto (U)Ordered By: Rupert Gonzalez on 01-17-2023 Color (U) Yellow Yellow [facility] Complete Blood Count Auto Di ffon 01-17-2023 Basophils (Bld) [#/Vol] 0.1 10*3/uL Normal 0.0-0.2 [facility] Comment on above: Result Comment: PERF ORMED BY: [place] [address] PATHOLOGIST STOVE REFINISHER REG DRISCOLL M.D. Performed By: #### C BC, BMP, LIPASE, HEPATIC #### [facility] [address] [place] [address] Basophils/100 WBC (Bld) 1.4 % Normal . [facility] Comment on above: Performed By: #### C BC, BMP, LIPASE, HEPATIC #### [facility] [address] Eosinophils (Bld) [#/Vol] 0.3 10*3/uL Normal 0.0-0.45 [facility] Comment on above: Performed By: #### C BC, BMP, LIPASE, HEPATIC #### [facility] [address] [place] [address] Eosinophils/100 WBC (Bld) 3.9 % Normal . [facility] Comment on above: Performed By: #### C BC, BMP, LIPASE, HEPATIC #### [facility] [address] [place] [address] Erythrocyte distribution width (RBC) [Ratio] 12.8 % Normal 11.9-15.3 [facility] Comment on above: Performed By: #### C BC, BMP, LIPASE, HEPATIC #### [facility] [address] [place] [address] Hematocrit (Bld) [Volume fraction] 41.6 % Normal 34.0-46.4 [facility] Comment on above: Performed By: #### C BC, BMP, LIPASE, HEPATIC #### [address] Hemoglobin (Bld) [Mass/Vol] 14.0 g/dL Normal 11.8-15.4 [facility] Comment on above: Performed By: #### C BC, BMP, LIPASE, HEPATIC #### [address] Lymphocytes (Bld) [#/Vol] 2.1 10*3/uL Normal 1.00-4.8 [facility] Comment on above: Performed By: #### C BC, BMP, LIPASE, HEPATIC #### [address] Lymphocytes/100 WBC (Bld) 28.3 % Normal . [facility] Comment on above: Performed By: #### C BC, BMP, LIPASE, HEPATIC #### [address] MCH (RBC) [Entitic mass] 30.8 pg Normal 24.7-34.3 [facility] Comment on above: Performed By: #### C BC, BMP, LIPASE, HEPATIC #### [address] MCV (RBC) [Entitic vol] 91.4 fL Normal 80-100 [facility] Comment on above: Performed By: #### C BC, BMP, LIPASE, HEPATIC #### [address] Mean Corpuscular HGB Conc 33.7 g/dL Normal 32.0-35.0 [facility] Comment on above: Performed By: #### C BC, BMP, LIPASE, HEPATIC #### [address] Monocytes (Bld) [#/Vol] 0.4 10*3/uL Normal 0.0-0.8 [facility] Comment on above: Performed By: #### C BC, BMP, LIPASE, HEPATIC #### [address] Monocytes/100 WBC (Bld) 16.90 % Normal 0.00-20.00 [facility] Comment on above: Performed By: #### C BC, BMP, LIPASE, HEPATIC #### [address] Monocytes/100 WBC (Bld) 6.1 % Normal . [facility] Comment on above: Performed By: #### C BC, BMP, LIPASE, HEPATIC #### [address] Neutrophils (Bld) [#/Vol] 4.4 10*3/uL Normal 1.8-7.7 [facility] Comment on above: Performed By: #### C BC, BMP, LIPASE, HEPATIC #### [address] Neutrophils/100 WBC (Bld) 60.3 % Normal . [facility] Comment on above: Performed By: #### C BC, BMP, LIPASE, HEPATIC #### [address] NRBC% 0.1 /100{WBC} Normal 0-0.5 [facility] Comment on above: Performed By: #### C BC, BMP, LIPASE, HEPATIC #### [address] Platelet mean volume (Bld) [Entitic vol] 8.2 fL Normal 6.3-10.7 [facility] Comment on above: Performed By: #### C BC, BMP, LIPASE, HEPATIC #### [address] Platelets (Bld) [#/Vol] 216 10*3/uL Normal 150-450 [facility] Comment on above: Performed By: #### C BC, BMP, LIPASE, HEPATIC #### [address] RBC (Bld) [#/Vol] 4.55 10*6/uL Normal 3.60-5.00 [facility] Comment on above: Performed By: #### C BC, BMP, LIPASE, HEPATIC #### [facility] [address] [place] [address] [place] WBC (Bld) [#/Vol] 7.3 10*3/uL Normal 3.8-11.6 [facility] Comment on above: Performed By: #### C BC, BMP, LIPASE, HEPATIC #### [facility] [address] Creatinine [Mass/volume] in Serum or PlasmaOrdered By: Kang Gonzalez on 01-17-2023 Creatinine [Mass/Vol] 0.92 mg/dL 0.60-1.20 [facility] Dipstick and Microscopicon 0 01-17-2023 Appearance (U) Clear Normal Clear [facility] Comment on above: Order Comment: Name Collection Type:: Clean-Voided Midstream Performed By: #### A DDONUAPLUS #### [facility] [address] [place] [address] Bacteria,Urine 1+ High None Seen [facility] Comment on above: Order Comment: Name Collection Type:: Clean-Voided Midstream Performed By: #### A DDONUAPLUS #### [facility] [address] [place] [address] [place] Bilirubin,Urine Negative Normal Negative [facility] Comment on above: Order Comment: Name Collection Type:: Clean-Voided Midstream Performed By: #### A DDONUAPLUS #### [facility] [address] [place] [address] [place] Color (U) Yellow Normal Yellow [facility] Comment on above: Order Comment: Name Collection Type:: Clean-Voided Midstream Performed By: #### A DDONUAPLUS #### [facility] [address] [place] [address] [place] Glucose Ql (U) Normal Normal Normal [facility] Comment on above: Order Comment: Name Collection Type:: Clean-Voided Midstream Performed By: #### A DDONUAPLUS #### [facility] [address] [place] [address] [place] Hyaline Casts,Urine 0-8 Normal 0-8 [facility] Comment on above: Order Comment: Name Collection Type:: Clean-Voided Midstream Result Comment: PERF ORMED BY: [place] [address] PATHOLOGIST [employer]OVE REFINISHER REG DRISCOLL M.D. Performed By: #### A DDONUAPLUS #### [place] [address] [place] Ketones Ql (U) Negative Normal Negative [facility] Comment on above: Order Comment: Name Collection Type:: Clean-Voided Midstream Performed By: #### A DDONUAPLUS #### [place] [address] [place] Leukocyte esterase Test strip Ql (U) 1+ High Negative [facility] Comment on above: Order Comment: Name Collection Type:: Clean-Voided Midstream Performed By: #### A DDONUAPLUS #### [place] [address] [place] Nitrite,Urine Negative Normal Negative [facility] Comment on above: Order Comment: Name Collection Type:: Clean-Voided Midstream Performed By: #### A DDONUAPLUS #### [place] [address] [place] Occult Blood,Urine Negative Normal Negative [facility] Comment on above: Order Comment: Name Collection Type:: Clean-Voided Midstream Result Comment: PERF ORMED BY: [place] [address] PATHOLOGIST STOVE REFINISHER REG DRISCOLL M.D. Performed By: #### A DDONUAPLUS #### [facility] [address] [place] [address] [place] pH (U) 7.5 [pH] Normal 5.0-9.0 [facility] Comment on above: Order Comment: Name Collection Type:: Clean-Voided Midstream Performed By: #### A DDONUAPLUS #### [place] [address] [place] Protein,Urine Negative Normal Negative [facility] Comment on above: Order Comment: Name Collection Type:: Clean-Voided Midstream Performed By: #### A DDONUAPLUS #### [facility] [address] [place] [address] RBC LM.HPF (Urine sed) [#/Area] 0 /[HPF] Normal 0-4 [facility] Comment on above: Order Comment: Name Collection Type:: Clean-Voided Midstream Performed By: #### A DDONUAPLUS #### [address] Specificy [place],Urine 1.020 Normal 1.001-1.03 0 [facility] Comment on above: Order Comment: Name Collection Type:: Clean-Voided Midstream Performed By: #### A DDONUAPLUS #### [address] Squamous Epithelial Cell,Urine 5-9 High 0-2 [facility] Comment on above: Order Comment: Name Collection Type:: Clean-Voided Midstream Performed By: #### A DDONUAPLUS #### [address] Urobilinogen,Urine Normal Normal Normal [facility] Comment on above: Order Comment: Name Collection Type:: Clean-Voided Midstream Performed By: #### A DDONUAPLUS #### [address] WBC,Urine 3-4 Normal 0-4 [facility] Comment on above: Order Comment: Name Collection Type:: Clean-Voided Midstream Performed By: #### A DDONUAPLUS #### [address] Eosinophils Auto (Bld) [#/Vo l]Ordered By: Kang Gonzalez on 01-17-2023 Eosinophils (Bld) [#/Vol] 0.3 10*3/uL 0.0-0.45 [facility] Eosinophils/100 WBC Auto (Bl d)Ordered By: Kang Gonzalez on 01-17-2023 Eosinophils/100 WBC (Bld) 3.9 % . [facility] Erythrocyte distribution wid th Auto (RBC) [Ratio]Ordered By: Kang Gonzalez on 01-17-2023 Erythrocyte distribution width (RBC) [Ratio] 12.8 % 11.9-15.3 [facility] Globulin Calc (S) [Mass/Vol] Ordered By: Kang Gonzalez on 01-17-2023 Globulin (S) [Mass/Vol] 2.4 g/dL [facility] Glucose [Mass/volume] in Ser um or PlasmaOrdered By: Kang Gonzalez on 01-17-2023 Glucose [Mass/Vol] 99 mg/dL 70-100 [facility] Comment on above: ADA recommended refe rence rangeRandom Glucose Reference Range is dependent on time and content of last meal. Glucose of more than 200 mg/dL in a nonstressed, ambulatory subject supports the diagnosis of Diabetes Mellitus. Hematocrit Auto (Bld) [Volum e fraction]Ordered By: Kang Gonzalez on 01-17-2023 Hematocrit (Bld) [Volume fraction] 41.6 % 34.0-46.4 [facility] Hemoglobin [Mass/volume] in BloodOrdered By: Kang Gonzalez on 01-17-2023 Hemoglobin (Bld) [Mass/Vol] 14.0 g/dL 11.8-15.4 [facility] Hepatic Panelon 01-17-2023 Albumin [Mass/Vol] 4.6 g/dL Normal 3.5-5.7 [facility] Comment on above: Performed By: #### C BC, BMP, LIPASE, HEPATIC #### [facility] [address] [place] [address] [place] Albumin/Globulin [Mass ratio] 1.9 {ratio} Normal [facility] Comment on above: Performed By: #### C BC, BMP, LIPASE, HEPATIC #### [facility] [address] [place] [address] [place] ALP [Catalytic activity/Vol] 99 U/L Normal 34-104 [facility] Comment on above: Performed By: #### C BC, BMP, LIPASE, HEPATIC #### [facility] [address] [place] [id number] [place] ALT [Catalytic activity/Vol] 29 U/L Normal 7-52 [facility] Comment on above: Performed By: #### C BC, BMP, LIPASE, HEPATIC #### [facility] [address] AST [Catalytic activity/Vol] 29 U/L Normal 13-39 [facility] Comment on above: Performed By: #### C BC, BMP, LIPASE, HEPATIC #### [facility] [address] Bilirubin [Mass/Vol] 0.7 mg/dL Normal 0.3-1.0 [facility] Comment on above: Performed By: #### C BC, BMP, LIPASE, HEPATIC #### [facility] [address] Bilirubin,Indirect 0.6 mg/dL Normal [facility] [facility] Comment on above: Performed By: #### C BC, BMP, LIPASE, HEPATIC #### [facility] [address] Bilirubin.indirect [Mass/Vol] 0.10 mg/dL Normal 0.03-0.18 [facility] Comment on above: Performed By: #### C BC, BMP, LIPASE, HEPATIC #### [facility] [address] Globulin (S) [Mass/Vol] 2.4 g/dL Normal [facility] Comment on above: Performed By: #### C BC, BMP, LIPASE, HEPATIC #### [facility] [address] Protein [Mass/Vol] 7.0 g/dL Normal 6.4-8.9 [facility] Comment on above: Performed By: #### C BC, BMP, LIPASE, HEPATIC #### [facility] [address] Ketones Auto test strip (U) [Mass/Vol]Ordered By: Kang Gonzalez on 01-17-2023 Ketones (U) [Mass/Vol] Negative Negative [facility] - CoagulationOrde red By: Kang Gonzalez on 01-17-2023 PT Coag (PPP) [Time] 10.8 s 9.0-12.9 [facility] - UrinalysisOrder ed By: Kang Gonzalez on 01-17-2023 Hyaline casts LM Ql (Urine sed) 0-8 [LPF] 0-8 [facility] Leukocytes [#/volume] correc kyra for nucleated erythrocytes in Blood by Automated counOrdered By: Kang Gonzalez on 01-17-2023 WBC corrected for nucl RBC Auto (Bld) [#/Vol] 7.3 10*3/uL 3.8-11.6 [facility] Lipaseon 01-17-2023 Lipase [Catalytic activity/Vol] 15.0 U/L Normal 11.0-82.0 [facility] Comment on above: Result Comment: PERF ORMED BY: [place] [address] PATHOLOGIST [employer]OVE REFINISHER REG DRISCOLL M.D. Performed By: #### C BC, BMP, LIPASE, HEPATIC #### [address] Lipase [Enzymatic activity/v olume] in Serum or PlasmaOrdered By: Kang Gonzalez on 01-17-2023 Lipase [Catalytic activity/Vol] 15.0 U/L 11.0-82.0 [facility] Lymphocytes Auto (Bld) [#/Vo l]Ordered By: Kang Gonzalez on 01-17-2023 Lymphocytes (Bld) [#/Vol] 2.1 10*3/uL 1.00-4.8 [facility] Lymphocytes/100 WBC Auto (Bl d)Ordered By: Kang Gonzalez on 01-17-2023 Lymphocytes/100 WBC (Bld) 28.3 % . [facility] MCH Auto (RBC) [Entitic mass ]Ordered By: Kang Gonzalez on 01-17-2023 MCH (RBC) [Entitic mass] 30.8 pg 24.7-34.3 [facility] MCHC Auto (RBC) [Mass/Vol]Or dered By: Kang Gonzalez on 01-17-2023 MCHC (RBC) [Mass/Vol] 33.7 g/dL 32.0-35.0 [facility] MCV Auto (RBC) [Entitic vol] Ordered By: Kang Gonzalez on 01-17-2023 MCV (RBC) [Entitic vol] 91.4 fL 80-100 [facility] Monocyte distribution width [Entitic volume] in Blood by AutomatedOrdered By: Kang Gonzalez on 01-17-2023 Monocyte distribution width Auto (Bld) [Entitic vol] 16.90 % 0.00-20.00 [facility] Monocytes Auto (Bld) [#/Vol] Ordered By: Kang Gonzalez on 01-17-2023 Monocytes (Bld) [#/Vol] 0.4 10*3/uL 0.0-0.8 [facility] Monocytes/100 WBC Auto (Bld) Ordered By: Kang Gonzalez on 01-17-2023 Monocytes/100 WBC (Bld) 6.1 % . [facility] Neutrophils Auto (Bld) [#/Vo l]Ordered By: Kang Gonzalez on 01-17-2023 Neutrophils (Bld) [#/Vol] 4.4 10*3/uL 1.8-7.7 [facility] Neutrophils/100 WBC Auto (Bl d)Ordered By: Kang Gonzalez on 01-17-2023 Neutrophils/100 WBC (Bld) 60.3 % . [facility] Nitrite Test strip Ql (U)Ord ered By: Kang Gonzalez on 01-17-2023 Nitrite Ql (U) Negative Negative [facility] No Panel InformationOrdered By: Kang Gonzalez on 01-17-2023 Estimated GFR (CKD-EPI) > 60.0 mL/Min [facility] Creatinine Clearance (Chem 72.06 [facility] Nucleated erythrocytes [Pres ence] in Blood by Automated countOrdered By: Kang Gonzalez on 01-17-2023 Nucleated RBC Auto Ql (Bld) 0.1 /100{WBC} 0-0.5 [facility] Partial Thromboplastin Timeo n 01-17-2023 aPTT Coag (Bld) [Time] 28.1 s Normal 25.1-36.5 [facility] Comment on above: Result Comment: PERF ORMED BY: [facility] [address] [place] [address] PATHOLOGIST [employer]OVE REFINISHER JIANLAN SUN M.D. Performed By: #### P T, PTT #### [facility] [address] Platelet mean volume Auto (B ld) [Entitic vol]Ordered By: Kang Gonzalez on 01-17-2023 Platelet mean volume (Bld) [Entitic vol] 8.2 fL 6.3-10.7 [facility] Platelet poor plasma interna tional normalized ratio (INR) by coagulation assay (relatOrdered By: Kang Gonzalez on 01-17-2023 INR Coag (PPP) [Relative time] 0.9 {INR} [facility] Comment on above: INR Therapeutic Rang e A) Pre- and Peroperative OAT started two weeks before surgery. NOT HIP SURGERY: 1.5 - 2.5 HIP SURGERY: 2 - 3B) Primary and secondary prevention of venous THROMBOSIS: 2 - 3C) Active venous thrombosis, pulmonary embolismand prevention of recurrent venous thrombosis: 2 - 3D) Prevention of arterial thromboembolismincluding patients with mechanical heart valves: 3 - 4.5 Platelets Auto (Bld) [#/Vol] Ordered By: Kang Gonzalez on 01-17-2023 Platelets (Bld) [#/Vol] 216 10*3/uL 150-450 [facility] Potassium [Moles/volume] in Serum or PlasmaOrdered By: Kang Gonzalez on 01-17-2023 Potassium [Moles/Vol] 4.1 mmol/L 3.5-5.1 [facility] Protein Auto test strip (U) [Mass/Vol]Ordered By: Kang Gonzalez on 01-17-2023 Protein (U) [Mass/Vol] Negative Negative [facility] Protein [Mass/volume] in Ser um or PlasmaOrdered By: Kang Gonzalez on 01-17-2023 Protein [Mass/Vol] 7.0 g/dL 6.4-8.9 [facility] Prothrombin Time INRon 01-17 INR Coag (PPP) [Relative time] 0.9 {INR} Normal [facility] Comment on above: Result Comment: INR Therapeutic Range A) Pre- and Peroperative OAT started two weeks before surgery. NOT HIP SURGERY: 1.5 - 2.5 HIP SURGERY: 2 - 3 B) Primary and secondary prevention of venous THROMBOSIS: 2 - 3 C) Active venous thrombosis, pulmonary embolism and prevention of recurrent venous thrombosis: 2 - 3 D) Prevention of arterial thromboembolism including patients with mechanical heart valves: 3 - 4.5 Performed By: #### P T, PTT #### [facility] [address] PT Coag (PPP) [Time] 10.8 s Normal 9.0-12.9 [facility] Comment on above: Performed By: #### P T, PTT #### [facility] [address] RBC Auto (Bld) [#/Vol]Ordere d By: Kang Gonzalez on 01-17-2023 RBC (Bld) [#/Vol] 4.55 10*6/uL 3.60-5.00 [facility] Serum or plasma albumin/glob ulin mass ratioOrdered By: Kang Gonzalez on 01-17-2023 Albumin/Globulin [Mass ratio] 1.9 {ratio} [facility] Serum or plasma anion gap de terminationOrdered By: Kang Gonzalez on 01-17-2023 Anion gap [Moles/Vol] 10.9 mmol/L 6.0-15.0 [facility] Serum or plasma non-glucuron idated bilirubin measurement (mass/volume)Ordered By: Kang Gonzalez on 01-17-2023 Bilirubin.indirect [Mass/Vol] 0.6 mg/dL [facility] Sodium [Moles/volume] in Ser um or PlasmaOrdered By: Kang Gonzalez on 01-17-2023 Sodium [Moles/Vol] 142 mmol/L 136-145 [facility] Specific gravity Auto test s trip (U) [Rel density]Ordered By: Kang Gonzalez on 01-17-2023 Specific gravity (U) [Rel density] 1.020 1.001-1.03 0 [facility] Squamous epithelial cells de tection in urine sediment by light microscopyOrdered By: Kang Gonzalez on 01-17-2023 Epithelial cells.squamous LM Ql (Urine sed) 5-9 [HPF] 0-2 [facility] Urea nitrogen [Mass/volume] in Serum or PlasmaOrdered By: Kang Gonzalez on 01-17-2023 Urea nitrogen [Mass/Vol] 14 mg/dL 7-25 [facility] Urine bacteria detection by automated methodOrdered By: Kang Gonzalez on 01-17-2023 Bacteria Auto Ql (U) 1+ None Seen [facility] Urine clarity by refractomet ry automatedOrdered By: Kang Gonzalez on 01-17-2023 Clarity Refractometry automated (U) Clear Clear [facility] Urine glucose measurement by automated test strip (mass/volume)Ordered By: Kang Gonzalez on 01-17-2023 Glucose Auto test strip (U) [Mass/Vol] Normal mg/dL Normal [facility] Urine hemoglobin detection b y automated test stripOrdered By: Kang Gonzalez on 01-17-2023 Hemoglobin Auto test strip Ql (U) Negative Negative [facility] Urine leukocyte esterase det ection by automated test stripOrdered By: Kang Gonzalez on 01-17-2023 Leukocyte esterase Auto test strip Ql (U) 1+ Negative [facility] Urobilinogen Auto test strip (U) [Mass/Vol]Ordered By: Kang Gonzalez on 01-17-2023 Urobilinogen (U) [Mass/Vol] Normal mg/dL Normal [facility] WBC Auto (Bld) [#/Vol]Ordere d By: Kang Gonzalez on 01-17-2023 WBC (Bld) [#/Vol] 7.3 10*3/uL 3.8-11.6 [facility] pH Auto test strip (U)Ordere d By: Kang Gonzalez on 01-17-2023 pH (U) 7.5 [pH] 5.0-9.0 [facility] LIPASE BLDon 01-12-2023 Lipase [Catalytic activity/Vol] 27 U/L 16 - 61 U/L [facility] 01-11-2023 DEEPAKN Telephone (INTMLN) JOY ORTIZ ([id number]) 1965 F Date Time Provider Department 01/11/23 JAIRON COWAN During your visit today, we recorded the following information about you: Jairon Cowan APRN.DRYING OVEN TENDER 01/11/2023 7:37 AM Signed Call lab to add a lipase to her blood work Karissa Guadalupe MA 01/11/2023 9:21 AM Signed Called lab, order has been added on. Will postpone for results. Jairon Cowan APRN.DRYING OVEN TENDER 01/11/2023 3:29 PM Signed Schedule GI Sadia Naranjo 01/11/2023 3:58 PM Signed Spoke with patient informed patient soonest gastro appointment was in April, provided phone number to call [facility] gastro . Allergies As of Date: 01/11/2023 Noted Allergy Reaction NITROFURANTOIN MONOHYD/M-CRYST 03/29/2022 11 - Vomiting 12 - Shortness of Breath 10 - Anaphylaxis 3 - Cough ALLOPURINOL 11/21/2017 2 - Rash Comments: patient reported in Home Inventory S[pecialists message noted on November 21, 2017 BACTRIM (SULFAMETHOXAZOLE) 12/05/2011 4 - Hives NEURONTIN (GABAPENTIN) 03/03/2013 14 - Other: See Comments Comments: Mouth sores Date Reviewed: 01/10/2023 Reviewed by: Karissa Guadalupe MA - Fully Assessed Reason for Visit: Results [95] Primary Visit Diagnosis:Epigastric pain [R10.13] Other Visit Diagnosis:RUQ pain [R10.11] Order(s):LIPASE BLD [SQLIPA] Order #: [id number] FUTURE CONSULT TO GASTROENTEROLOGY [9054] Order #: [id number]: 1 FUTURE Prescriptions as of 01/11/2023 - minocycline (MINOCIN, DYNACIN) 50 mg capsule Take 1 capsule by mouth twice daily. - metroNIDAZOLE 0.75 % cream Apply 1 application to affected area twice daily as needed. - sertraline (ZOLOFT) 50 mg tablet Take 1 tablet by mouth once daily. - ergocalciferol 50,000 unit capsule (VITAMIN D2, DRISDOL) Take 1 capsule by mouth two times a week. (FOR EXAMPLE ONE CAPSULE ON SUNDAY AND ONE ON SUNDAY) FOR A TOTAL OF 4 WEEKS, WITH A MEAL - pantoprazole DR (PROTONIX) 40 mg tablet Take 1 tablet by mouth once daily. - MEDICATION, NON-DATABASE Take by mouth twice daily. Tumeric with black pepper - Bifidobacterium infantis (ALIGN ORAL) Take by mouth once daily. - nebivolol (BYSTOLIC) 10 mg tablet TAKE 2 TABLETS (20 MG) IN THE MORNING AND 1 TABLET (10 MG) IN THE EVENING - rosuvastatin (CRESTOR) 40 mg tablet Take 1 tablet by mouth daily at bedtime. - losartan (COZAAR) 25 mg tablet Take 1 tablet by mouth once daily. - nitroglycerin sublingual (NITROQUICK) 0.4 mg SL tablet DISSOLVE 1 TABLET UNDER THE TONGUE NEEDED FOR CHEST PAIN - MITIGARE 0.6 mg capsule TAKE 1 CAPSULE TWICE A DAY (TAKE 1 CAPSULE ONCE DAILY AND IF NEEDED CAN INCREASE TO TWICE A DAY INSTRUCTED) - aspirin, enteric coated (ECOTRIN LOW STRENGTH) 81 mg EC tablet Take 1 tablet by mouth once daily. Meds Comments as of 10/20/2022: Problem List As Of Date 01/11/2023 Noted Resolved Multiple joint pain [M25.50] 03/12/2012 Fatigue [R53.83] 03/12/2012 CTS (carpal tunnel syndrome) [G56.00] 03/12/2012 Epicondylitis [GAV0524] 03/12/2012 Vitamin D deficiency [E55.9] 04/09/2012 Elevated C-reactive protein (CRP) [R79.82] 04/09/2012 Chest pain [R07.9] 08/26/2012 09/14/2015 HTN (hypertension) [I10] 08/26/2012 HLD (hyperlipidemia) [E78.5] 08/26/2012 Colon polyp [K63.5] 08/20/2018 Primary osteoarthritis of both knees [M17.0] 07/30/2015 S/P PTCA (percutaneous transluminal coronary an*08/17/2015 Atherosclerotic coronary vascular disease [I25.* Morbid obesity with BMI of 40.0-44.9, adult (HC* 08/20/2018 NARCISO (generalized anxiety disorder) [F41.1] Chronic thumb pain [M79.646, G89.29] 11/08/2015 Chest pain [R07.9] 03/12/2016 Sigmoid diverticulitis [K57.32] 01/05/2017 08/20/2018 Diabetes mellitus type 2, controlled, without c*01/05/2017 Colitis [K52.9] 01/05/2017 01/06/2017 Diverticulitis [K57.92] 02/26/2017 08/20/2018 Hypokalemia [E87.6] 03/28/2017 03/29/2017 Bradycardia [R00.1] 03/28/2017 08/20/2018 Arthralgia [M25.50] 06/18/2017 Presence of drug coated stent in right coronary*11/05/2017 Obesity, Class II, BMI 35-39.9 E66.9 [E66.9] 11/06/2017 Gastroesophageal reflux disease without esophag*08/20/2018 Idiopathic chronic gout of right foot without t*08/20/2018 Suspected COVID-19 virus infection [Z20.822] 03/04/2020 09/24/2020 History of asthma [Z87.09] 03/04/2020 Left upper quadrant pain [R10.12] 06/13/2021 Encounter Status:Closed by SADIA NARANJO on 01/11/23 Normal [facility] Bacteria Ur Culton 3 Bacteria identified Cx Nom (U) ORGANISM ID: 1 <10,000 CFU/ml Mixed microbiota No further workup. Mixed microbiota can be due to???urine???contamination with skin bacteria at time of collection or presence of a long-term urinary catheter. If a new culture is needed, please consider re-education of the patient on proper midstream collection technique or straight catheterization for???urine???collection. Normal [facility] Comment on above: Performed By: #### 6 30-4 ####[facility] LABCLIA [id number] [place] [address] [place] CBC W Auto Differential pane l (Bld)on 01-10-2023 Basophils (Bld) [#/Vol] 0.08 10*3/uL <0.11 k/uL [facility] Basophils/100 WBC (Bld) 1.2 % [facility] Differential cell count method Nom (Bld) Auto [facility] Eosinophils (Bld) [#/Vol] 0.29 10*3/uL <0.46 k/uL [facility] Eosinophils/100 WBC (Bld) 4.5 % [facility] Erythrocyte distribution width (RBC) [Ratio] 12.4 % 11.5 - 15.0 % [facility] Hematocrit (Bld) [Volume fraction] 39.0 % 36.0 - 46.0 % [facility] Hemoglobin (Bld) [Mass/Vol] 12.6 g/dL 11.5 - 15.5 g/dL [facility] Immature granulocytes (Bld) [#/Vol] <0.10 k/uL [facility] Immature granulocytes/100 WBC (Bld) 0.2 % [facility] Lymphocytes (Bld) [#/Vol] 2.51 10*3/uL 1.00 - 4.00 k/uL [facility] Lymphocytes/100 WBC (Bld) 38.7 % [facility] MCH (RBC) [Entitic mass] 30.7 pg 26.0 - 34.0 pg [facility] MCHC (RBC) [Mass/Vol] 32.3 g/dL 30.5 - 36.0 g/dL [facility] MCV (RBC) [Entitic vol] 94.9 fL 80.0 - 100.0 fL [facility] Monocytes (Bld) [#/Vol] 0.44 10*3/uL <0.87 k/uL [facility] Monocytes/100 WBC (Bld) 6.8 % [facility] Neutrophils (Bld) [#/Vol] 3.15 10*3/uL 1.45 - 7.50 k/uL [facility] Neutrophils/100 WBC (Bld) 48.6 % [facility] Nucleated RBC (Bld) [#/Vol] <0.01 k/uL [facility] Nucleated RBC/100 WBC (Bld) [Ratio] 0.0 /100 WBC [facility] Platelet mean volume (Bld) [Entitic vol] 10.7 fL 9.0 - 12.7 fL [facility] Platelets (Bld) [#/Vol] 206 10*3/uL 150 - 400 k/uL [facility] RBC (Bld) [#/Vol] 4.11 10*6/uL 3.90 - 5.20 m/uL [facility] WBC (Bld) [#/Vol] 6.48 10*3/uL 3.70 - 11.00 k/uL [facility] Basophils (Bld) [#/Vol] 0.08 10*3/uL Normal <0.11 [facility] Comment on above: Order Comment: Speci men Type: BLOOD SPECIMENOrdering Facility: [facility] Address: [address] [place] [address] Performed By: #### 5 7021-8 ####[facility] LABCLIA [id number] [place] [address] [place] Basophils/100 WBC (Bld) 1.2 % Normal [facility] Comment on above: Order Comment: Speci men Type: BLOOD SPECIMENOrdering Facility: [facility] Address: [address] [place] [address] Performed By: #### 5 7021-8 ####[facility] LABCLIA [id number] [place] [address] [place] Differential cell count method Nom (Bld) Auto Normal [facility] Comment on above: Order Comment: Speci men Type: BLOOD SPECIMENOrdering Facility: [facility] Address: [address] [place] [address] Performed By: #### 5 7021-8 ####[facility] LABCLIA [id number] [place] [address] [place] Eosinophils (Bld) [#/Vol] 0.29 10*3/uL Normal <0.46 [facility] Comment on above: Order Comment: Speci men Type: BLOOD SPECIMENOrdering Facility: [facility] Address: [address] [place] [address] Performed By: #### 5 7021-8 ####[facility] LABCLIA [id number] [facility] [address] [place] Eosinophils/100 WBC (Bld) 4.5 % Normal [facility] Comment on above: Order Comment: Speci men Type: BLOOD SPECIMENOrdering Facility: [facility] Address: [address] Performed By: #### 5 7021-8 ####[facility] LABIA [id number] [place] [address] [place] Erythrocyte distribution width (RBC) [Ratio] 12.4 % Normal 11.5-15.0 [facility] Comment on above: Order Comment: Speci men Type: BLOOD SPECIMENOrdering Facility: [facility] Address: [address] Performed By: #### 5 7021-8 ####[facility] LABIA [id number] [place] [address] [place] Hematocrit (Bld) [Volume fraction] 39.0 % Normal 36.0-46.0 [facility] Comment on above: Order Comment: Speci men Type: BLOOD SPECIMENOrdering Facility: [facility] Address: [address] [place], [place] [address] Performed By: #### 5 7021-8 ####[facility] LABIA [id number] [place] [address] [place] Hemoglobin (Bld) [Mass/Vol] 12.6 g/dL Normal 11.5-15.5 [facility] Comment on above: Order Comment: Speci men Type: BLOOD SPECIMENOrdering Facility: [facility] Address: [address] Performed By: #### 5 7021-8 ####[facility] LABIA [id number] [place] [address] [place] Immature granulocytes (Bld) [#/Vol] 10*3/uL Normal <0.10 [facility] Comment on above: Order Comment: Speci men Type: BLOOD SPECIMENOrdering Facility: [facility] Address: [address] [place], [place] [address] Performed By: #### 5 7021-8 ####[facility] LABCLIA [id number] [place] [address] [place] Immature granulocytes/100 WBC (Bld) 0.2 % Normal [facility] Comment on above: Order Comment: Speci men Type: BLOOD SPECIMENOrdering Facility: [facility] Address: [address] [place] [address] Performed By: #### 5 7021-8 ####[facility] LABCLIA [id number] [place] [address] [place] Lymphocytes (Bld) [#/Vol] 2.51 10*3/uL Normal 1.00-4.00 [facility] Comment on above: Order Comment: Speci men Type: BLOOD SPECIMENOrdering Facility: [facility] Address: [address] [place] [address] Performed By: #### 5 7021-8 ####[facility] LABCLIA [id number] [address] [place] Lymphocytes/100 WBC (Bld) 38.7 % Normal [facility] Comment on above: Order Comment: Speci men Type: BLOOD SPECIMENOrdering Facility: [facility] Address: [address] [place] [address] Performed By: #### 5 7021-8 ####[facility] LABCLIA [id number] [place] [address] [place] MCH (RBC) [Entitic mass] 30.7 pg Normal 26.0-34.0 [facility] Comment on above: Order Comment: Speci men Type: BLOOD SPECIMENOrdering Facility: [facility] Address: [address] [place], [place] [address] Performed By: #### 5 7021-8 ####[facility] LABCLIA [id number] [place] [address] [place] MCHC (RBC) [Mass/Vol] 32.3 g/dL Normal 30.5-36.0 [facility] Comment on above: Order Comment: Speci men Type: BLOOD SPECIMENOrdering Facility: [facility] Address: [address] [place], [place] [address] Performed By: #### 5 7021-8 ####[facility] LABCLIA [id number] [place] [address] [place] MCV (RBC) [Entitic vol] 94.9 fL Normal 80.0-100.0 [facility] Comment on above: Order Comment: Speci men Type: BLOOD SPECIMENOrdering Facility: [facility] Address: [address] [place], [place] [address] Performed By: #### 5 7021-8 ####[facility] LABCLIA [id number] [place] [address] [place] Monocytes (Bld) [#/Vol] 0.44 10*3/uL Normal <0.87 [facility] Comment on above: Order Comment: Speci men Type: BLOOD SPECIMENOrdering Facility: [facility] Address: [address] [place], [place] [address] Performed By: #### 5 7021-8 ####[facility] LABCLIA [id number] [place] [address] [place] Monocytes/100 WBC (Bld) 6.8 % Normal [facility] Comment on above: Order Comment: Speci men Type: BLOOD SPECIMENOrdering Facility: [facility] Address: [address] [place] [address] Performed By: #### 5 7021-8 ####[facility] LABIA [id number] [place] [address] [place] Neutrophils (Bld) [#/Vol] 3.15 10*3/uL Normal 1.45-7.50 [facility] Comment on above: Order Comment: Speci men Type: BLOOD SPECIMENOrdering Facility: [facility] Address: [address] [place], [place] [id number] Performed By: #### 5 7021-8 ####[facility] LABCLIA [id number] [place] [address] [place] Neutrophils/100 WBC (Bld) 48.6 % Normal [facility] Comment on above: Order Comment: Speci men Type: BLOOD SPECIMENOrdering Facility: [facility] Address: [address] [place], [place] [address] Performed By: #### 5 7021-8 ####[facility] LABCLIA [id number] [place] [address] [place] Nucleated RBC (Bld) [#/Vol] 10*3/uL Normal <0.01 [facility] Comment on above: Order Comment: Speci men Type: BLOOD SPECIMENOrdering Facility: [facility] Address: [address] [place], [place] [address] Performed By: #### 5 7021-8 ####[facility] LABIA [id number] [place] [address] [place] Nucleated RBC/100 WBC (Bld) [Ratio] 0.0 /100 WBC Normal [facility] Comment on above: Order Comment: Speci men Type: BLOOD SPECIMENOrdering Facility: [facility] Address: [address] [place], [place] [address] Performed By: #### 5 7021-8 ####[facility] LABCLIA [id number] [place] [address] [place] Platelet mean volume (Bld) [Entitic vol] 10.7 fL Normal 9.0-12.7 [facility] Comment on above: Order Comment: Speci men Type: BLOOD SPECIMENOrdering Facility: [facility] Address: [address] [place], [place] [address] Performed By: #### 5 7021-8 ####[facility] LABIA [id number] [address] [place] Platelets (Bld) [#/Vol] 206 10*3/uL Normal 150-400 [facility] Comment on above: Order Comment: Speci men Type: BLOOD SPECIMENOrdering Facility: [facility] Address: [address] [place] [address] Performed By: #### 5 7021-8 ####[facility] LABCLIA [id number] [place] [address] [place] RBC (Bld) [#/Vol] 4.11 10*6/uL Normal 3.90-5.20 [facility] Comment on above: Order Comment: Speci men Type: BLOOD SPECIMENOrdering Facility: [facility] Address: [address] [place] [address] Performed By: #### 5 7021-8 ####[facility] LABCLIA [id number] [place] [address] [place] WBC (Bld) [#/Vol] 6.48 10*3/uL Normal 3.70-11.00 [facility] Comment on above: Order Comment: Speci men Type: BLOOD SPECIMENOrdering Facility: [facility] Address: [address] [place] [address] Performed By: #### 5 7021-8 ####[facility] LABCLIA [id number] [address] [place] CNOVon 01-10-2023 CNOV Office Visit (INTMLN ) JOY ORTIZ ([id number]) 1965 F Date Time Provider Department 01/10/23 10:40 AM JAIRON COWAN INTNERY During your visit today, we recorded the following information about you: Temperature Pulse Blood pressure Weight 97.9 degrees 63/minute 118/70 93.4 kg Jairon Cowan APRN.DRYING OVEN TENDER 01/10/2023 12:13 PM Signed Subjective HPI Joy Ortiz is a 57 year old female who presents with right flank pain x 1 week. Notes pain to the flank and wraps around to the front at belly button. No fever, chills, nausea/vomiting. Gall bladder was removed, no hx of kidney stones. No blood in urine/stool, normal BM yesterday. No pain with urination/frequency. Did not injure with a fall or do any vigorous work last week. Heating pad/ice helps, Tylenol not helping. Review of Systems Constitutional: Negative for chills and fever. HENT: Negative. Respiratory: Negative for cough, sputum production and shortness of breath. Cardiovascular: Negative for chest pain and palpitations. Gastrointestinal: Negative for blood in stool, constipation, diarrhea, heartburn, nausea and vomiting. Genitourinary: Positive for flank pain. Negative for dysuria, frequency, hematuria and urgency. BP 118/70 Pulse 63 Temp 36.6 ?C (97.9 ?F) Wt 93.4 kg (205 lb 12.8 oz) SpO2 97% BMI 36.46 kg/m? Objective Physical Exam Constitutional: Appearance: Normal appearance. Cardiovascular: Rate and Rhythm: Normal rate and regular rhythm. Pulmonary: Effort: Pulmonary effort is normal. Breath sounds: Normal breath sounds. No wheezing, rhonchi or rales. Abdominal: General: Bowel sounds are normal. There is no distension. Palpations: Abdomen is soft. Tenderness: There is abdominal tenderness in the right upper quadrant. There is guarding. There is no rebound. Negative signs include Jackson's sign and McBurney's sign. Neurological: Mental Status: She is alert. ASSESSMENT/PLAN: 1. Right flank pain - ICD9: 789.09, ICD10: R10.9 - Urine neg for blood, will check labs of CBC with Diff, CMP, and Urine analysis - Work up with RUQ ultrasound - continue ice/heat/Tylenol PRN - COMP METABOLIC PANEL - URINALYSIS, DIPSTICK ONLY - URINE CULTURE - CBC + DIFF - US ABD RIGHT UPPER QUADRANT If not findings, may need CT. To ER if severe. Jairon Cowan APRN.DRYING OVEN TENDER Allergies As of Date: 01/10/2023 Noted Allergy Reaction NITROFURANTOIN MONOHYD/M-CRYST 03/29/2022 11 - Vomiting 12 - Shortness of Breath 10 - Anaphylaxis 3 - Cough ALLOPURINOL 11/21/2017 2 - Rash Comments: patient reported in Home Inventory S[pecialists message noted on November 21, 2017 BACTRIM (SULFAMETHOXAZOLE) 12/05/2011 4 - Hives NEURONTIN (GABAPENTIN) 03/03/2013 14 - Other: See Comments Comments: Mouth sores Date Reviewed: 01/10/2023 Reviewed by: Karissa Guadalupe MA - Fully Assessed Reason for Visit: Back Pain [12] Cmt: R side and belly button pain x's 1.5 weeks.Tried tylenol, heat and ice. 0-10, 5, uncomfortable. Primary Visit Diagnosis:Right flank pain [R10.9] Order(s):COMP METABOLIC PANEL [SQCMP] Order #: [id number] FUTURE URINALYSIS, DIPSTICK ONLY [SQUA] Order #: [id number] FUTURE URINE CULTURE [SQURCUL] Order #: [id number] FUTURE CBC + DIFF [SQCBCDIF] Order #: [id number] FUTURE US ABD RIGHT UPPER QUADRANT [[id number]] Order #: [id number] FUTURE UA DIP, URINE (POC) [[id number]] Order #: [id number]. #:[id number] -LAB Prescriptions as of 01/10/2023 - minocycline (MINOCIN, DYNACIN) 50 mg capsule Take 1 capsule by mouth twice daily. - metroNIDAZOLE 0.75 % cream Apply 1 application to affected area twice daily as needed. - sertraline (ZOLOFT) 50 mg tablet Take 1 tablet by mouth once daily. - ergocalciferol 50,000 unit capsule (VITAMIN D2, DRISDOL) Take 1 capsule by mouth two times a week. (FOR EXAMPLE ONE CAPSULE ON SUNDAY AND ONE ON SUNDAY) FOR A TOTAL OF 4 WEEKS, WITH A MEAL - pantoprazole DR (PROTONIX) 40 mg tablet Take 1 tablet by mouth once daily. - MEDICATION, NON-DATABASE Take by mouth twice daily. Tumeric with black pepper - Bifidobacterium infantis (ALIGN ORAL) Take by mouth once daily. - nebivolol (BYSTOLIC) 10 mg tablet TAKE 2 TABLETS (20 MG) IN THE MORNING AND 1 TABLET (10 MG) IN THE EVENING - rosuvastatin (CRESTOR) 40 mg tablet Take 1 tablet by mouth daily at bedtime. - losartan (COZAAR) 25 mg tablet Take 1 tablet by mouth once daily. - nitroglycerin sublingual (NITROQUICK) 0.4 mg SL tablet DISSOLVE 1 TABLET UNDER THE TONGUE NEEDED FOR CHEST PAIN - MITIGARE 0.6 mg capsule TAKE 1 CAPSULE TWICE A DAY (TAKE 1 CAPSULE ONCE DAILY AND IF NEEDED CAN INCREASE TO TWICE A DAY INSTRUCTED) - aspirin, enteric coated (ECOTRIN LOW STRENGTH) 81 mg EC tablet Take 1 tablet by mouth once daily. Meds Comments as of 10/20/2022: Problem List As Of Date 01/10/2023 Noted Resolved Multiple joint pain [M25.50] 03/12/2012 Fatigue [ (more content not included)... Normal [facility] Comprehensive metabolic 2000 panelon 01-10-2023 Albumin [Mass/Vol] 4.2 g/dL Normal 3.9-4.9 [facility] Comment on above: Order Comment: Speci men Type: BLOOD SPECIMENOrdering Facility: [facility] Address: [address] Performed By: #### 2 4323-8, 0-3 ####[facility] LABIA [id number] [address] [place] ALP [Catalytic activity/Vol] 116 U/L Normal 34-123 [facility] Comment on above: Order Comment: Speci men Type: BLOOD SPECIMENOrdering Facility: [facility] Address: [address] [place] [phone] Performed By: #### 2 4323-8, 3040-3 ####[facility] LABIA [id number] [address] [place] ALT [Catalytic activity/Vol] 26 U/L Normal 7-38 [facility] Comment on above: Order Comment: Speci men Type: BLOOD SPECIMENOrdering Facility: [facility] Address: [address] [place] [address] Performed By: #### 2 4323-8, 3039-3 ####[facility] LABCLIA [id number] [place] [address] [place] Anion gap [Moles/Vol] 8 mmol/L Low 9-18 [facility] Comment on above: Order Comment: Speci men Type: BLOOD SPECIMENOrdering Facility: [facility] Address: [address] Performed By: #### 2 4323-8, 3039-3 ####[facility] LABCLIA [id number] [place] [address] [place] AST [Catalytic activity/Vol] 33 U/L Normal 13-35 [facility] Comment on above: Order Comment: Speci men Type: BLOOD SPECIMENOrdering Facility: [facility] Address: [address] [place], [place] [address] Performed By: #### 2 4328, 3039-3 ####[facility] LABCLIA [id number] [place] [address] [place] Bilirubin [Mass/Vol] 0.3 mg/dL Normal 0.2-1.3 [facility] Comment on above: Order Comment: Speci men Type: BLOOD SPECIMENOrdering Facility: [facility] Address: [address] Performed By: #### 2 4323-8, 3039-3 ####[facility] LABCLIA [id number] [place] [address] [place] Calcium [Mass/Vol] 9.5 mg/dL Normal 8.5-10.2 [facility] Comment on above: Order Comment: Speci men Type: BLOOD SPECIMENOrdering Facility: [facility] Address: [address] Performed By: #### 2 4323-8, 3039-3 ####[facility] LABCLIA [id number] [place] [address] [place] Chloride [Moles/Vol] 107 mmol/L High 97-105 [facility] Comment on above: Order Comment: Speci men Type: BLOOD SPECIMENOrdering Facility: [facility] Address: [address] [place] [address] Performed By: #### 2 4323-8, 3040-3 ####[facility] [id number] [address] [place] CO2 [Moles/Vol] 27 mmol/L Normal 22-30 [facility] Comment on above: Order Comment: Speci men Type: BLOOD SPECIMENOrdering Facility: [facility] Address: [address] [place] [address] Performed By: #### 2 4323-8, 3040-3 ####[facility] [id number] [address] OF [facility] Creatinine [Mass/Vol] 0.90 mg/dL Normal 0.58-0.96 [facility] Comment on above: Order Comment: Speci men Type: BLOOD SPECIMENOrdering Facility: [facility] Address: [address] [place] [address] Performed By: #### 2 4323-8, 3040-3 ####[facility] [id number] [address] OF [facility] ESTIMATED GLOMERULAR FILTRATION RATE 74 mL/min/1.73m??? Normal >=60 [facility] Comment on above: Order Comment: Speci men Type: BLOOD SPECIMENOrdering Facility: [facility] Address: [address] [place] [address] Result Comment: Gwendolyn mated Glomerular Filtration Rate (eGFR) is calculated using the 2020 CKD-EPI creatinine equation. This equation utilizes serum creatinine, sex, and age as parameters. The creatinine assay has traceable calibration to isotope dilution-mass spectrometry. Refer to KDIGO guidelines for clinical interpretation. In patients with unstable renal function, e.g. those with acute kidney injury, the eGFR may not accurately reflect actual GFR. Performed By: #### 2 4323-8, 3039-3 ####[facility] LABCLIA [id number] [place] [address] [place] Glucose [Mass/Vol] 105 mg/dL High 74-99 [facility] Comment on above: Order Comment: Speci men Type: BLOOD SPECIMENOrdering Facility: [facility] Address: [address] [place] [phone] Result Comment: The [place] Diabetes Association (ADA) provides guidance for cutoff values for fasting glucose and random glucose. The ADA defines fasting as no caloric intake for at least 8 hours. Fasting plasma glucose results between 100 to 125 mg/dL indicate increased risk for diabetes (prediabetes). Fasting plasma glucose results greater than or equal to 126 mg/dL meet the criteria for diagnosis of diabetes. In the absence of unequivocal hyperglycemia, results should be confirmed by repeat testing. In a patient with classic symptoms of hyperglycemia or hyperglycemic crisis, random plasma glucose results greater than or equal to 200 mg/dL meet the criteria for diagnosis of diabetes. Reference: Standards of Medical Care in Diabetes 2016, [place] [employer]. Diabetes Care. 2016.39(Suppl 1). Performed By: #### 2 4323-8, 3039-3 ####[facility] LABIA [id number] [place] [address] [place] Potassium [Moles/Vol] 4.2 mmol/L Normal 3.7-5.1 [facility] Comment on above: Order Comment: Nadiya men Type: BLOOD SPECIMENOrdering Facility: [facility] Address: [address] [place] [address] Performed By: #### 2 4323-8, 3039-3 ####[facility] LABIA [id number] [address] [address] [place] Protein [Mass/Vol] 6.7 g/dL Normal 6.3-8.0 [facility] Comment on above: Order Comment: Speci men Type: BLOOD SPECIMENOrdering Facility: [facility] Address: [address] Performed By: #### 2 4323-8, 3040-3 ####[facility] LABCLIA [id number] [place] [address] [place] Sodium [Moles/Vol] 142 mmol/L Normal 136-144 [facility] Comment on above: Order Comment: Speci men Type: BLOOD SPECIMENOrdering Facility: [facility] Address: [address] [place] [address] Performed By: #### 2 4323-8, 3039-3 ####[facility] LABIA [id number] [place] [address] [place] Urea nitrogen [Mass/Vol] 16 mg/dL Normal 7-21 [facility] Comment on above: Order Comment: Speci men Type: BLOOD SPECIMENOrdering Facility: [facility] Address: [address] [place] [address] Performed By: #### 2 4323-8, 0-3 ####[facility] LABIA [id number] [place] [address] [place] Lipase SerPl-cCncon 01-11-20 23 Lipase [Catalytic activity/Vol] 27 U/L Normal 16-61 [facility] Comment on above: Order Comment: Speci men Type: BLOOD SPECIMENOrdering Facility: [facility] Address: [address] [place] [address] Performed By: #### 2 4323-8, 3040-3 ####[facility] LABCLIA [id number] [place] [address] [place] No Panel Informationon 01-10 [facility] UA DIP, URINE (POC)on 2022 BILIRUBIN UA (POCT) Negative Negative [facility] CLARITY UA (POCT) Slightly Cloudy Cl [facility] COLOR UA (POCT) Dark yellow [facility] GLUCOSE UA (POCT) Negative Negative mg/dL [facility] HEMOGLOBIN/BLOOD UA (POCT) Negative Negative [facility] KETONE UA (POCT) Negative Negative mg/dL [facility] LEUKOCYTES UA (POCT) Negative Negative [facility] NITRITE UA (POCT) Negative Negative [facility] PH UA (POCT) 6.0 4.5 - 8.0 [facility] Protein Ql (U) Trace Abnormal Negative mg/dL [facility] SPECIFIC GRAVITY UA (POCT) 1.020 1.005 - 1.030 [facility] UROBILINOGEN UA (POCT) 0.2 E.U./dL Liliana l E.U./dL [facility] URINALYSIS, DIPSTICK ONLYon 01-10-2023 Bilirubin Ql (U) Negative Negative [facility] Clarity (Unsp spec) Cloudy Abnormal Clear [facility] Color (U) Yellow Yellow [facility] Glucose Test strip (U) [Mass/Vol] Negative Trace, Negative [facility] Hemoglobin Ql (U) Negative Negative, Trace [facility] Ketones Ql (U) Negative Trace, Negative [facility] Leukocyte esterase Test strip Ql (U) Negative Negative, 25 Andrea/uL [facility] Nitrite Ql (U) Negative Negative [facility] pH (U) 7.0 [pH] 5.0 - 8.0 [facility] Protein (U) [Mass/Vol] 1+ Abnormal Trace , Negative [facility] Specific gravity (U) [Rel density] 1.026 1.005 - 1.030 [facility] Urobilinogen Ql (U) Negative Negative [facility] Bilirubin Ql (U) Negative Normal Negative [facility] Comment on above: Order Comment: Speci men Type: URINE SPECIMENOrdering Facility: [facility] Address: [address] [place] [address] Performed By: #### U A ####[facility] LABCLIA [id number] [address] [place] Clarity (Unsp spec) Cloudy Abnormal Clear [facility] Comment on above: Order Comment: Speci men Type: URINE SPECIMENOrdering Facility: [facility] Address: [address] [place] [address] Performed By: #### U A ####[facility] LABCLIA [id number] [place] [address] [place] Color (U) Yellow Normal Yellow [facility] Comment on above: Order Comment: Speci men Type: URINE SPECIMENOrdering Facility: [facility] Address: [address] [address] Performed By: #### U A ####[facility] LABCLIA [id number] [address] [place] Glucose Test strip (U) [Mass/Vol] Negative Normal Trace, Negative [facility] Comment on above: Order Comment: Speci men Type: URINE SPECIMENOrdering Facility: [facility] Address: [address] [place] [address] Performed By: #### U A ####[facility] LABIA [id number] [place] [address] [place] Hemoglobin Ql (U) Negative Normal Negative, Trace [facility] Comment on above: Order Comment: Speci men Type: URINE SPECIMENOrdering Facility: [facility] Address: [address] [place], [place] [address] Performed By: #### U A ####[facility] LABIA [id number] [address] [place] Ketones Ql (U) Negative Normal Trace, Negative [facility] Comment on above: Order Comment: Speci men Type: URINE SPECIMENOrdering Facility: [facility] Address: [address] Performed By: #### U A ####[facility] LABIA [id number] [address] [place] Leukocyte esterase Test strip Ql (U) Negative Normal Negative, 25 Andrea/uL [facility] Comment on above: Order Comment: Speci men Type: URINE SPECIMENOrdering Facility: [facility] Address: [address] [place], [place] [id number] Performed By: #### U A ####[facility] LABCLIA [id number] [place] [address] [place] Nitrite Ql (U) Negative Normal Negative [facility] Comment on above: Order Comment: Speci men Type: URINE SPECIMENOrdering Facility: [facility] Address: [address] [place] [address] Performed By: #### U A ####[facility] LABIA [id number] [place] [address] [place] pH (U) 7.0 [pH] Normal 5.0-8.0 [facility] Comment on above: Order Comment: Speci men Type: URINE SPECIMENOrdering Facility: [facility] Address: [address] [place] [address] Performed By: #### U A ####[facility] LABIA [id number] [place] [address] [place] Protein (U) [Mass/Vol] 1+ Abnormal Trace , Negative [facility] Comment on above: Order Comment: Speci men Type: URINE SPECIMENOrdering Facility: [facility] Address: [address] [place] [address] Performed By: #### U A ####[facility] [id number] [place] [address] [place] Specific gravity (U) [Rel density] 1.026 Normal 1.005-1.03 0 [facility] Comment on above: Order Comment: Speci men Type: URINE SPECIMENOrdering Facility: [facility] Address: [address] [place] [address] Performed By: #### U A ####[facility] LABIA [id number] [place] [address] [place] Urobilinogen Ql (U) Negative Normal Negative [facility] Comment on above: Order Comment: Speci men Type: URINE SPECIMENOrdering Facility: [facility] Address: [address] [place] [phone] Performed By: #### U A ####[facility] LABCLIA [id number] [address] [place] [address] [place] US ABD RIGHT UPPER QUADRANTo n 01-10-2023 US ABD RIGHT UPPER QUADRANT * * *Final Report* * * DATE OF EXAM: Jan 10 2023 11:36AM LNU 1032 - US ABD RIGHT UPPER QUADRANT / PROCEDURE REASON: Right flank pain * * * * Physician Interpretation * * * * EXAMINATION: RIGHT UPPER QUADRANT ULTRASOUND CLINICAL HISTORY: Right flank pain TECHNIQUE: Sonography of the right upper quadrant was performed. Images were obtained and stored in a permanent archive. MQ: [id number] COMPARISON: Ultrasound performed 04/04/2021 RESULT: Pancreas: Normal sonographic appearance. Portions obscured: tail Liver: Echotexture: Normal, homogeneous. Echogenicity: Normal Surface contour: Smooth Lesions: None. Biliary: No intrahepatic biliary duct dilation. CBD: 0.5 cm at the hilum. Gallbladder: Prior cholecystectomy Right Kidney: No gross renal calculus or hydronephrosis is noted. Ascites: None. IMPRESSION: Unremarkable right upper quadrant ultrasound status post cholecystectomy. No evidence of biliary ductal dilation. 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: MAKEDA Transcribe Date/Time: Jan 10 2023 11:40A Dictated by : NATHAN MCDONALD MD This examination was interpreted and the report reviewed and electronically signed by: NATHAN MCDONALD MD on Jan 10 2023 11:47AM EST [id number] Normal [facility] CNPAudra 12-26-2022 DEEPAKN Telephone (COLIN) JOY ORTIZ ([id number]) 1965 F Date Time Provider Department 12/26/22 ALISSON MACIAS During your visit today, we recorded the following information about you: Alisson Macias APRN.DRYING OVEN TENDER 12/26/2022 11:28 PM Signed Please call patient Alk phos now normal Will continue to monitor Normal vit d - please continue current dose Component Latest Ref Rng AND Units 12/04/2022 Alk Phos Bone % 10.7 - 68.3 % 53.2 Bone Fraction 12.9 - 52.6 U/L 56.9 (H) Alk Phos Liver % 26.0 - 86.2 % 35.9 Liver Fraction 16.0 - 69.3 U/L 38.4 Alk Phos Intestine % 0.0 - 24.2 % 10.8 Intestine Fraction 0.0 - 16.3 U/L 11.6 Vitamin D 25 Hydroxy 31.0 - 80.0 ng/mL 40.6 Alkaline Phosphatase 34 - 123 U/L 107 Omayra Mcguire MA 12/27/2022 9:11 AM Signed My chart sent. Omayra Mcguire MA Allergies As of Date: 12/26/2022 Noted Allergy Reaction NITROFURANTOIN MONOHYD/M-CRYST 03/29/2022 11 - Vomiting 12 - Shortness of Breath 10 - Anaphylaxis 3 - Cough ALLOPURINOL 11/21/2017 2 - Rash Comments: patient reported in Home Inventory S[pecialists message noted on November 21, 2017 BACTRIM (SULFAMETHOXAZOLE) 12/05/2011 4 - Hives NEURONTIN (GABAPENTIN) 03/03/2013 14 - Other: See Comments Comments: Mouth sores Date Reviewed: 11/09/2022 Reviewed by: Emi Craig MA - Fully Assessed Reason for Visit: Results [95] Prescriptions as of 12/28/2022 - ergocalciferol 50,000 unit capsule (VITAMIN D2, DRISDOL) Take 1 capsule by mouth two times a week. (FOR EXAMPLE ONE CAPSULE ON SUNDAY AND ONE ON SUNDAY) FOR A TOTAL OF 4 WEEKS, WITH A MEAL - pantoprazole DR (PROTONIX) 40 mg tablet Take 1 tablet by mouth once daily. - MEDICATION, NON-DATABASE Take by mouth twice daily. Tumeric with black pepper - Bifidobacterium infantis (ALIGN ORAL) Take by mouth once daily. - nebivolol (BYSTOLIC) 10 mg tablet TAKE 2 TABLETS (20 MG) IN THE MORNING AND 1 TABLET (10 MG) IN THE EVENING - rosuvastatin (CRESTOR) 40 mg tablet Take 1 tablet by mouth daily at bedtime. - losartan (COZAAR) 25 mg tablet Take 1 tablet by mouth once daily. - nitroglycerin sublingual (NITROQUICK) 0.4 mg SL tablet DISSOLVE 1 TABLET UNDER THE TONGUE NEEDED FOR CHEST PAIN - MITIGARE 0.6 mg capsule TAKE 1 CAPSULE TWICE A DAY (TAKE 1 CAPSULE ONCE DAILY AND IF NEEDED CAN INCREASE TO TWICE A DAY INSTRUCTED) - aspirin, enteric coated (ECOTRIN LOW STRENGTH) 81 mg EC tablet Take 1 tablet by mouth once daily. Meds Comments as of 10/20/2022: Problem List As Of Date 12/26/2022 Noted Resolved Multiple joint pain [M25.50] 03/12/2012 Fatigue [R53.83] 03/12/2012 CTS (carpal tunnel syndrome) [G56.00] 03/12/2012 Epicondylitis [TTL9301] 03/12/2012 Vitamin D deficiency [E55.9] 04/09/2012 Elevated C-reactive protein (CRP) [R79.82] 04/09/2012 Chest pain [R07.9] 08/26/2012 09/14/2015 HTN (hypertension) [I10] 08/26/2012 HLD (hyperlipidemia) [E78.5] 08/26/2012 Colon polyp [K63.5] 08/20/2018 Primary osteoarthritis of both knees [M17.0] 07/30/2015 S/P PTCA (percutaneous transluminal coronary an*08/17/2015 Atherosclerotic coronary vascular disease [I25.* Morbid obesity with BMI of 40.0-44.9, adult (HC* 08/20/2018 NARCISO (generalized anxiety disorder) [F41.1] Chronic thumb pain [M79.646, G89.29] 11/08/2015 Chest pain [R07.9] 03/12/2016 Sigmoid diverticulitis [K57.32] 01/05/2017 08/20/2018 Diabetes mellitus type 2, controlled, without c*01/05/2017 Colitis [K52.9] 01/05/2017 01/06/2017 Diverticulitis [K57.92] 02/26/2017 08/20/2018 Hypokalemia [E87.6] 03/28/2017 03/29/2017 Bradycardia [R00.1] 03/28/2017 08/20/2018 Arthralgia [M25.50] 06/18/2017 Presence of drug coated stent in right coronary*11/05/2017 Obesity, Class II, BMI 35-39.9 E66.9 [E66.9] 11/06/2017 Gastroesophageal reflux disease without esophag*08/20/2018 Idiopathic chronic gout of right foot without t*08/20/2018 Suspected COVID-19 virus infection [Z20.822] 03/04/2020 09/24/2020 History of asthma [Z87.09] 03/04/2020 Left upper quadrant pain [R10.12] 06/13/2021 Encounter Status:Closed by IZABELA DEJESUS on 12/28/22 Normal [facility] 25(OH)D3 SerPl-mCncon 2022 25-hydroxyvitamin D3 [Mass/Vol] 40.6 ng/mL Normal 31.0-80.0 [facility] Comment on above: Order Comment: Specleonel magdaleno Type: BLOOD SPECIMENOrdering Facility: [facility] Address: [address] [place] [address] Result Comment: Clas sification of 25 OH Vitamin D status: Deficiency/Insufficiency: < or = 30 ng/ml. Sufficiency/Optimal Levels: 31-80 ng/mL Toxicity: > 100 ng/mL. Test performed by chemiluminescent immunoassay. Performed By: #### 1 [id number] ####[facility] LABIA [id number] [place] [address] [place] ALKALINE PHOSPHATASE ISOENZY MES (P)on 12-04-2022 ALK PHOS BONE % 53.2 % Normal 10.7-68.3 [facility] Comment on above: Order Comment: Nadiya magdaleno Type: BLOOD SPECIMENOrdering Facility: [facility] Address: [address] [place] [address] Performed By: #### A LKISOP ####[facility] LABIA [id number] [place] [address] [place] ALK PHOS LIVER % 35.9 % Normal 26.0-86.2 [facility] Comment on above: Order Comment: Speci men Type: BLOOD SPECIMENOrdering Facility: [facility] Address: [address] [address] Performed By: #### A LKISOP ####[facility] LABCLIA [id number] [place] [address] [place] BONE FRACTION 56.9 U/L High 12.9-52.6 [facility] Comment on above: Order Comment: Speci men Type: BLOOD SPECIMENOrdering Facility: [facility] Address: [address] [place] [address] Performed By: #### A LKISOP ####[facility] LABCLIA [id number] [place] [address] [place] INTESTINE FRACTION 11.6 U/L Normal 0.0-16.3 [facility] Comment on above: Order Comment: Speci men Type: BLOOD SPECIMENOrdering Facility: [facility] Address: [address] [place], [place] [address] Performed By: #### A LKISOP ####[facility] LABCLIA [id number] [place] [address] [place] LIVER FRACTION 38.4 U/L Normal 16.0-69.3 [facility] Comment on above: Order Comment: Speci men Type: BLOOD SPECIMENOrdering Facility: [facility] Address: [address] [place], [place] [address] Performed By: #### A LKISOP ####[facility] LABCLIA [id number] [place] [address] [place] Neutrophils/100 WBC (Bld) 10.8 % Normal 0.0-24.2 [facility] Comment on above: Order Comment: Speci men Type: BLOOD SPECIMENOrdering Facility: [facility] Address: [address] [place], [place] [address] Performed By: #### A LKISOP ####[facility] [id number] [address] [place] ALP SerPl-cCncon 12-04-2022 ALP [Catalytic activity/Vol] 107 U/L Normal 34-123 [facility] Comment on above: Order Comment: Speci men Type: BLOOD SPECIMENOrdering Facility: [facility] Address: [place] [address] Performed By: #### 6 [id number] ####[facility] LABIA [id number] [address] OF [facility] CNOVon 11-09-2022 CNOV Office Visit (LOORRM ) JOY ORTIZ ([id number]) 1965 F Date Time Provider Department 11/09/22 3:00 PM SRAVAN MARROQUINORR During your visit today, we recorded the following information about you: Sravan Marroquin DO 11/09/2022 3:48 PM Signed Joy Ortiz is here today at request of Alisson Macias specifically for consultation of my opinion in regards to the chief complaint listed below. Correspondence will be shared today via the [facility] electronic health record or through regular mail, where applicable. CHIEF COMPLAINT: Joy Ortiz is a 57 year old female who presents today for new evaluation ofright hand pain and left hand pain. HISTORY OF PRESENT ILLNESS: PAIN EVALUATION 11/06/2022 2016 11/09/2022 1448 Pain Level: 6 5 Pain Location: Heel-Right Hand-Left Description: Aching;Numbness;Radiating;S harp;Stiffness;Throbbing;Ti ghtness Aching;Tightness Duration Amount of Time: -- 2 Duration Units: Days Weeks Frequency: Continuous Continuous Intervention/Comfort measure: Medication;Distractions;Hea t;Support surface;Other: See comment Splinting;Heat Comments: Its both hands but it only gives me option to pick 1 -- Injury: No Mechanical Symptoms: No, patient denies locking, popping, or catching She states taht the pain is diffuse. She notes that this problem exhibits aggravating factors of gripping, grabbing. She notes that this problem exhibits alleviating factors of Rest and avoidance of aggravating activities. no associated symptoms of numbness in the fingers Night Pain: No PHYSICAL EXAMINATION: HANDANDWRIST EXAM Inspection: No joint deformities or swelling noted on examination today Range of Motion: Finger: normal ROM of all joints of all fingers of both hands Wrist Flexion: normal ROM when compared to the contralateral side Wist Extension: normal ROM when compared to the contralateral side TTP diffusely over the joints of the hands IMAGING: Previous imaging performed , and available in the [facility] health record, showed chronic degenerative changes. CLINICAL IMPRESSION / ASSESSMENT: (M19.041, M19.042) Primary osteoarthritis of both hands (primary encounter diagnosis) RECOMMENDATION / PLAN: Prescription topical medication written today. We discussed appropriate use, administration and side effects in detail. Discussed with her that options are limited from an orthopedic standpoint due to diffuse pain in the hands Recommend keeping follow-up with rheum Procedures Verbal health education was given to patient. Patient verbalizes understanding and agrees with the treatment plan as detailed above. Sravan Marroquin DO Referring Provider: ALISSON MACIAS [[id number]] Allergies As of Date: 11/09/2022 Noted Allergy Reaction NITROFURANTOIN MONOHYD/M-CRYST 03/29/2022 11 - Vomiting 12 - Shortness of Breath 10 - Anaphylaxis 3 - Cough ALLOPURINOL 11/21/2017 2 - Rash Comments: patient reported in POPAPPhart message noted on November 21, 2017 BACTRIM (SULFAMETHOXAZOLE) 12/05/2011 4 - Hives NEURONTIN (GABAPENTIN) 03/03/2013 14 - Other: See Comments Comments: Mouth sores Date Reviewed: 11/09/2022 Reviewed by: Emi Craig MA - Fully Assessed Reason for Visit: Hand Pain [1581] Primary Visit Diagnosis:Primary osteoarthritis of both hands [M19.041, M19.042] Order(s):CONSULT TO ORTHOPAEDICS [9026] Order #: [id number]: 1 Prescriptions as of 11/09/2022 - ergocalciferol 50,000 unit capsule (VITAMIN D2, DRISDOL) Take 1 capsule by mouth two times a week. (FOR EXAMPLE ONE CAPSULE ON SUNDAY AND ONE ON SUNDAY) FOR A TOTAL OF 4 WEEKS, WITH A MEAL - pantoprazole DR (PROTONIX) 40 mg tablet Take 1 tablet by mouth once daily. - MEDICATION, NON-DATABASE Take by mouth twice daily. Tumeric with black pepper - Bifidobacterium infantis (ALIGN ORAL) Take by mouth once daily. - nebivolol (BYSTOLIC) 10 mg tablet TAKE 2 TABLETS (20 MG) IN THE MORNING AND 1 TABLET (10 MG) IN THE EVENING - rosuvastatin (CRESTOR) 40 mg tablet Take 1 tablet by mouth daily at bedtime. - losartan (COZAAR) 25 mg tablet Take 1 tablet by mouth once daily. - nitroglycerin sublingual (NITROQUICK) 0.4 mg SL tablet DISSOLVE 1 TABLET UNDER THE TONGUE NEEDED FOR CHEST PAIN - MITIGARE 0.6 mg capsule TAKE 1 CAPSULE TWICE A DAY (TAKE 1 CAPSULE ONCE DAILY AND IF NEEDED CAN INCREASE TO TWICE A DAY INSTRUCTED) - aspirin, enteric coated (ECOTRIN LOW STRENGTH) 81 mg EC tablet Take 1 tablet by mouth once daily. Meds Comments as of 10/20/2022: Problem List As Of Date 11/09/2022 Noted Resolved Multiple joint pain [M25.50] 03/12/2012 Fatigue [R53.83] 03/12/2012 CTS (carpal tunnel syndrome) [G56.00] 03/12/2012 Epicondylitis [UYT2192] 03/12/2012 Vitamin D deficiency [E55.9] 04/09/2012 Elevated C-reactive protein (CRP) [R79.82] 04/09/2012 Chest pain [R07.9] 08/26/2012 09/14/2015 HTN (hypertension) [I10] 08/26/19 (more content not included)... Normal [facility] KAYLA BY IFA WITH REFLEXon KAYLA Pattern Nuclear homogenous Víctor [facility] KAYLA Titer 1:160 [facility] Nuclear Ab IF (S) [Titer] Positive Abnormal Negative [facility] DNA AB DS + CONF BLDon 10-09 DNA double strand Ab IA Qn (S) <30 IU/mL [facility] C-REACTIVE PROTEIN (CRP)on 0 10-07-2022 CRP [Mass/Vol] <0.9 mg/dL [facility] Comprehensive metabolic 2000 panelon 10-07-2022 Albumin [Mass/Vol] 4.4 g/dL 3.9 - 4.9 g/dL [facility] ALP [Catalytic activity/Vol] 126 U/L High 34 - 123 U/L [facility] ALT [Catalytic activity/Vol] 27 U/L 7 - 38 U/L [facility] Anion gap [Moles/Vol] 11 mmol/L 9 - 18 mmol/L [facility] AST [Catalytic activity/Vol] 29 U/L 13 - 35 U/L [facility] Bilirubin [Mass/Vol] 0.3 mg/dL 0.2 - 1 .3 mg/dL [facility] Calcium [Mass/Vol] 9.8 mg/dL 8.5 - 10. 2 mg/dL [facility] Chloride [Moles/Vol] 105 mmol/L 97 - 10 5 mmol/L [facility] CO2 [Moles/Vol] 26 mmol/L 22 - 30 mmol/L [facility] Creatinine [Mass/Vol] 0.77 mg/dL 0.58 - 0.96 mg/dL [facility] Estimated Glomerular Filtration Rate 90 mL/min/1.73m >=60 mL/min/1.7 3m [facility] Glucose [Mass/Vol] 89 mg/dL 74 - 99 mg/dL [facility] Potassium [Moles/Vol] 3.9 mmol/L 3.7 - 5.1 mmol/L [facility] Protein [Mass/Vol] 7.4 g/dL 6.3 - 8.0 g/dL [facility] Sodium [Moles/Vol] 142 mmol/L 136 - 144 mmol/L [facility] Urea nitrogen [Mass/Vol] 14 mg/dL 7 - 21 mg/dL [facility] URIC ACID BLOODon 10-07-2022 Urate [Mass/Vol] 4.2 mg/dL 2.5 - 6.6 mg/dL [facility] VITAMIN D 25 HYDROXYon 10-07 25-hydroxyvitamin D3 [Mass/Vol] 24.9 ng/mL Low 31.0 - 80.0 ng/mL [facility] CBC W Auto Differential pane l (Bld)on 10-06-2022 Basophils (Bld) [#/Vol] 0.11 10*3/uL High <0.11 k/uL [facility] Basophils/100 WBC (Bld) 1.4 % [facility] Differential cell count method Nom (Bld) Auto [facility] Eosinophils (Bld) [#/Vol] 0.39 10*3/uL <0.46 k/uL [facility] Eosinophils/100 WBC (Bld) 5.0 % [facility] Erythrocyte distribution width (RBC) [Ratio] 12.3 % 11.5 - 15.0 % [facility] Hematocrit (Bld) [Volume fraction] 42.8 % 36.0 - 46.0 % [facility] Hemoglobin (Bld) [Mass/Vol] 14.0 g/dL 11.5 - 15.5 g/dL [facility] Immature granulocytes (Bld) [#/Vol] <0.10 k/uL [facility] Immature granulocytes/100 WBC (Bld) 0.3 % [facility] Lymphocytes (Bld) [#/Vol] 3.14 10*3/uL 1.00 - 4.00 k/uL [facility] Lymphocytes/100 WBC (Bld) 40.0 % [facility] MCH (RBC) [Entitic mass] 30.6 pg 26.0 - 34.0 pg [facility] MCHC (RBC) [Mass/Vol] 32.7 g/dL 30.5 - 36.0 g/dL [facility] MCV (RBC) [Entitic vol] 93.7 fL 80.0 - 100.0 fL [facility] Monocytes (Bld) [#/Vol] 0.65 10*3/uL <0.87 k/uL [facility] Monocytes/100 WBC (Bld) 8.3 % [facility] Neutrophils (Bld) [#/Vol] 3.54 10*3/uL 1.45 - 7.50 k/uL [facility] Neutrophils/100 WBC (Bld) 45.0 % [facility] Nucleated RBC (Bld) [#/Vol] <0.01 k/uL [facility] Nucleated RBC/100 WBC (Bld) [Ratio] 0.0 /100 WBC [facility] Platelet mean volume (Bld) [Entitic vol] 10.5 fL 9.0 - 12.7 fL [facility] Platelets (Bld) [#/Vol] 252 10*3/uL 150 - 400 k/uL [facility] RBC (Bld) [#/Vol] 4.57 10*6/uL 3.90 - 5.20 m/uL [facility] WBC (Bld) [#/Vol] 7.85 10*3/uL 3.70 - 11.00 k/uL [facility] ESR Westergren method (Bld) [Velocity]on 10-06-2022 ESR (Bld) [Velocity] 2 mm/h 0 - 20 mm/hr [facility] No Panel Informationon 10-06 [facility] UA DIP, URINE (POC)on 2021 BILIRUBIN UA (POCT) Negative Negative [facility] CLARITY UA (POCT) [facility] COLOR UA (POCT) Yellow [facility] GLUCOSE UA (POCT) Negative Negative mg/dL [facility] HEMOGLOBIN/BLOOD UA (POCT) Trace-intact Abnormal Negative [facility] KETONE UA (POCT) Negative Negative mg/dL [facility] LEUKOCYTES UA (POCT) Negative Negative [facility] NITRITE UA (POCT) Negative Negative [facility] PH UA (POCT) 7.0 4.5 - 8.0 [facility] Protein Ql (U) Negative Negative mg/dL [facility] SPECIFIC GRAVITY UA (POCT) >=1.030 1.005 - 1.030 [facility] UROBILINOGEN UA (POCT) 0.2 E.U./dL Liliana l E.U./dL [facility] Activated partial thrombopla stin time (aPTT) in platelet poor plasma by coagulation aOrdered By: Kang Gonzalez on 02-23-2022 aPTT Coag (PPP) [Time] 29.7 s 25.1-36.5 [facility] Albumin [Mass/volume] in Ser um or PlasmaOrdered By: Kang Gonzalez on 02-23-2022 Albumin [Mass/Vol] 4.2 g/dL 3.2-5.5 [facility] Basophils Auto (Bld) [#/Vol] Ordered By: Kang Gonzalez on 02-23-2022 Basophils (Bld) [#/Vol] 0.0 10*3/uL 0.0-0.2 [facility] Basophils/100 WBC Auto (Bld) Ordered By: Kang Gonzalez on 02-23-2022 Basophils/100 WBC (Bld) 0.3 % [facility] Blood hemoglobin measurement (mass/volume)Ordered By: Kang Gonzalez on 02-23-2022 Hemoglobin (Bld) [Mass/Vol] 14.9 g/dL 11.8-15.4 [facility] Blood leukocytes automated c ount (number/volume)Ordered By: Kang Gonzalez on 02-23-2022 WBC (Bld) [#/Vol] 10.0 10*3/uL 4.5-11.0 [facility] Creatinine and Glomerular fi ltration rate.predicted panel (S/P/Bld)Ordered By: Kang Gonzalez on 02-23-2022 Creatinine [Mass/Vol] 0.89 mg/dL 0.44-1.03 [facility] Eosinophils Auto (Bld) [#/Vo l]Ordered By: Kang Gonzalez on 02-23-2022 Eosinophils (Bld) [#/Vol] 0.3 10*3/uL 0.0-0.45 [facility] Eosinophils/100 WBC Auto (Bl d)Ordered By: Kang Gonzalez on 02-23-2022 Eosinophils/100 WBC (Bld) 2.6 % [facility] Erythrocyte distribution wid th Auto (RBC) [Ratio]Ordered By: Kang Gonzalez on 02-23-2022 Erythrocyte distribution width (RBC) [Ratio] 13.5 % 11.9-15.3 [facility] Estimated glomerular filtrat ion rate (GFR) non- AmericanOrdered By: Kang Gonzalez on 02-23-2022 GFR/1.73 sq M.predicted among non-blacks MDRD (S/P/Bld) [Vol rate/Area] > 60 mL/Min [facility] Globulin Calc (S) [Mass/Vol] Ordered By: Kang Gonzalez on 02-23-2022 Globulin (S) [Mass/Vol] 3.0 g/dL [facility] Hematocrit Auto (Bld) [Volum e fraction]Ordered By: Kang Gonzalez on 07-14-2022 Hematocrit (Bld) [Volume fraction] 44.7 % 34.0-46.4 [facility] - Chemistry and C hemistry - challengeOrdered By: Kang Gonzalez on 02-23-2022 Natriuretic peptide B (Bld) [Mass/Vol] 38.0 pg/mL 5-100 [facility] - CoagulationOrde red By: Kang Gonzalez on 02-23-2022 PT Coag (PPP) [Time] 10.5 s 9.0-12.9 [facility] - Hematology and Cell countsOrdered By: Kang Gonzalez on 02-23-2022 Nucleated RBC/100 WBC (Bld) [Ratio] 0.0 % 0-0.5 [facility] Lymphocytes Auto (Bld) [#/Vo l]Ordered By: Kang Gonzalez on 02-23-2022 Lymphocytes (Bld) [#/Vol] 0.9 10*3/uL 1.00-4.8 [facility] Lymphocytes/100 WBC Auto (Bl d)Ordered By: Kang Gonzalez on 02-23-2022 Lymphocytes/100 WBC (Bld) 9.0 % [facility] MCH Auto (RBC) [Entitic mass ]Ordered By: Kang Gonzalez on 02-23-2022 MCH (RBC) [Entitic mass] 30.3 pg 24.7-34.3 [facility] MCHC Auto (RBC) [Mass/Vol]Or dered By: Kang Gonzalez on 02-23-2022 MCHC (RBC) [Mass/Vol] 33.3 g/dL 32.0-35.0 [facility] MCV Auto (RBC) [Entitic vol] Ordered By: Kang Gonzalez on 02-23-2022 MCV (RBC) [Entitic vol] 91.2 fL 80-100 [facility] Monocytes Auto (Bld) [#/Vol] Ordered By: Kang Gonzalez on 02-23-2022 Monocytes (Bld) [#/Vol] 0.4 10*3/uL 0.0-0.8 [facility] Monocytes/100 WBC Auto (Bld) Ordered By: Kang Gonzalez on 02-23-2022 Monocytes/100 WBC (Bld) 4.3 % [facility] Neutrophils Auto (Bld) [#/Vo l]Ordered By: Kagn Gonzalez on 02-23-2022 Neutrophils (Bld) [#/Vol] 8.4 10*3/uL 1.8-7.7 [facility] Neutrophils/100 WBC Auto (Bl d)Ordered By: Kang Gonzalez on 02-23-2022 Neutrophils/100 WBC (Bld) 83.8 % [facility] No Panel InformationOrdered By: Kang Gonzalez on 02-23-2022 Estimated GFR () > 60 mL/Min [facility] Comment on above: GFR estimated refere nce range: According to KDOQI guidelines, <60 ml/min/1.73m2 is sufficient to diagnose a patient with chronic kidney disease. Pharmacy Creatinine Clearance (Chem 71.87 [facility] Platelet mean volume Auto (B ld) [Entitic vol]Ordered By: Kang Gonzalez on 02-23-2022 Platelet mean volume (Bld) [Entitic vol] 8.2 fL 6.3-10.7 [facility] Platelet poor plasma interna tional normalized ratio (INR) by coagulation assay (relatOrdered By: Kang Gonzalez on 02-23-2022 INR Coag (PPP) [Relative time] 0.9 {INR} [facility] Comment on above: INR Therapeutic Rang e A) Pre- and Peroperative OAT started two weeks before surgery. NOT HIP SURGERY: 1.5 - 2.5 HIP SURGERY: 2 - 3 B) Primary and secondary prevention of venous THROMBOSIS: 2 - 3 C) Active venous thrombosis, pulmonary embolism and prevention of recurrent venous thrombosis: 2 - 3 D) Prevention of arterial thromboembolism including patients with mechanical heart valves: 3 - 4.5 Platelets Auto (Bld) [#/Vol] Ordered By: Kang Gonzalez on 02-23-2022 Platelets (Bld) [#/Vol] 238 10*3/uL 150-450 [facility] Protein [Mass/volume] in Ser um or PlasmaOrdered By: Kang Gonzalez on 02-23-2022 Protein [Mass/Vol] 7.2 g/dL 6.1-7.9 [facility] RBC Auto (Bld) [#/Vol]Ordere d By: Kang Gonzalez on 02-23-2022 RBC (Bld) [#/Vol] 4.90 10*6/uL 3.60-5.00 [facility] Serum or plasma alanine fam otransferase measurement without P-5'-P (enzymatic activiOrdered By: Kang Gonzalez on 02-23-2022 ALT No additional P-5'-P [Catalytic activity/Vol] 41 U/L 10-60 [facility] Serum or plasma albumin/glob ulin mass ratioOrdered By: Kang Gonzalez on 02-23-2022 Albumin/Globulin [Mass ratio] 1.4 {ratio} [facility] Serum or plasma alkaline karina sphatase measurement (enzymatic activity/volume)Ordered By: Kang Gonzalez on 02-23-2022 ALP [Catalytic activity/Vol] 105 U/L 32-92 [facility] Serum or plasma aspartate am inotransferase measurement (enzymatic activity/volume)Ordered By: Kang Gonzalez on 02-23-2022 AST [Catalytic activity/Vol] 39 U/L 10-42 [facility] Serum or plasma calcium hai urement (mass/volume)Ordered By: Kang Gonzalez on 02-23-2022 Calcium [Mass/Vol] 9.3 mg/dL 8.2-10.2 [facility] Serum or plasma chloride braxton surement (moles/volume)Ordered By: Kang Gonzalez on 02-23-2022 Chloride [Moles/Vol] 101 mmol/L 95-114 [facility] Serum or plasma glucose hai urement (mass/volume)Ordered By: Kang Gonzalez on 02-23-2022 Glucose [Mass/Vol] 137 mg/dL 70-100 [facility] Comment on above: ADA recommended refe rence range Random Glucose Reference Range is dependent on time and content of last meal. Glucose of more than 200 mg/dL in a nonstressed, ambulatory subject supports the diagnosis of Diabetes Mellitus. Serum or plasma potassium me asurement (moles/volume)Ordered By: Kang Gonzalez on 02-23-2022 Potassium [Moles/Vol] 3.8 mmol/L 3.5-5.1 [facility] Serum or plasma sodium measu rement (moles/volume)Ordered By: Kang Gonzalez on 02-23-2022 Sodium [Moles/Vol] 138 mmol/L 136-146 [facility] Serum or plasma total biliru bin measurement (mass/volume)Ordered By: Kang Gonzalez on 02-23-2022 Bilirubin [Mass/Vol] 1.0 mg/dL 0.3-1.2 [facility] Serum or plasma total carbon dioxide measurement (moles/volume)Ordered By: Kang Gonzalez on 02-23-2022 CO2 [Moles/Vol] 27.3 mmol/L 22.0-30.0 [facility] Serum or plasma urea nitroge n measurement (mass/volume)Ordered By: Kang Gonzalez on 02-23-2022 Urea nitrogen [Mass/Vol] 16 mg/dL 9- [facility] Troponin I.cardiac [Mass/vol ume] in Serum or Plasma by High sensitivity methodOrdered By: Kang Gonzalez on 02-23-2022 Troponin I.cardiac High sensitivity method [Mass/Vol] 3 pg/mL 0-15 [facility] Activated partial thrombopla stin time (aPTT) in platelet poor plasma by coagulation aOrdered By: Nathalie West on 01-24-2022 aPTT Coag (PPP) [Time] 27.9 s 25.1-36.5 [facility] Basophils Auto (Bld) [#/Vol] Ordered By: Nathalie West on 01-24-2022 Basophils (Bld) [#/Vol] 0.1 10*3/uL 0.0-0.2 [facility] Basophils/100 WBC Auto (Bld) Ordered By: Nathalie West on 01-24-2022 Basophils/100 WBC (Bld) 1.2 % [facility] Blood hemoglobin measurement (mass/volume)Ordered By: Nathalie West on 01-24-2022 Hemoglobin (Bld) [Mass/Vol] 13.4 g/dL 11.8-15.4 [facility] Blood leukocytes automated c ount (number/volume)Ordered By: Nathalie West on 01-24-2022 WBC (Bld) [#/Vol] 5.8 10*3/uL 4.5-11.0 [facility] Cholesterol [Mass/volume] in Serum or PlasmaOrdered By: Nathalie West on 01-24-2022 Cholesterol [Mass/Vol] 174 mg/dL 140-200 [facility] Comment on above: Chol less than 200 m g/dl low risk Chol 201-239 mg/dl borderline risk Chol 240 mg/dl and greater high risk Cholesterol in LDL Calc [Mas s/Vol]Ordered By: Nathalie West on 01-24-2022 Cholesterol in LDL [Mass/Vol] 103 mg/dL 0-100 [facility] Comment on above: LDL ATP III CLASSIFI CATION LDL less than 100 mg/dL Optimal LDL 100-129 mg/dL Near or above optimal LDL 130-159 mg/dL Borderline high LDL 160-189 mg/dL High LDL greater than 189 mg/dL Very high Cholesterol in VLDL Calc [Ma ss/Vol]Ordered By: Nathalie West on 01-24-2022 Cholesterol in VLDL [Mass/Vol] 33 mg/dL [facility] Creatinine and Glomerular fi ltration rate.predicted panel (S/P/Bld)Ordered By: Nathalie West on 01-24-2022 Creatinine [Mass/Vol] 0.85 mg/dL 0.44-1.03 [facility] Eosinophils Auto (Bld) [#/Vo l]Ordered By: Nathalie West on 01-24-2022 Eosinophils (Bld) [#/Vol] 0.2 10*3/uL 0.0-0.45 [facility] Eosinophils/100 WBC Auto (Bl d)Ordered By: Nathalie West on 01-24-2022 Eosinophils/100 WBC (Bld) 4.0 % [facility] Erythrocyte distribution wid th Auto (RBC) [Ratio]Ordered By: Nathalie West on 01-24-2022 Erythrocyte distribution width (RBC) [Ratio] 13.0 % 11.9-15.3 [facility] Estimated glomerular filtrat ion rate (GFR) non- AmericanOrdered By: Nathalie West on 01-24-2022 GFR/1.73 sq M.predicted among non-blacks MDRD (S/P/Bld) [Vol rate/Area] > 60 mL/Min [facility] Hematocrit Auto (Bld) [Volum e fraction]Ordered By: Nathalie West on 01-24-2022 Hematocrit (Bld) [Volume fraction] 39.3 % 34.0-46.4 [facility] Laboratory - Chemistry and C hemistry - challengeon 01-24-2022 Cholesterol [Mass/Vol] 174\\S\\174 Normal 140-200 [facility] bridgette [facility] DO Work Phone: Comment on above: Chol less than 200 m g/dl low risk Chol 201-239 mg/dl borderline risk Chol 240 mg/dl and greater high risk Cholesterol in LDL [Mass/Vol] 103\\S\\103 above high threshold 0-100 [facility] bridgette 250 DO Work Phone: Comment on above: LDL ATP III CLASSIFI CATION LDL less than 100 mg/dL Optimal LDL 100-129 mg/dL Near or above optimal LDL 130-159 mg/dL Borderline high LDL 160-189 mg/dL High LDL greater than 189 mg/dL Very high Laboratory - CoagulationOrde red By: Nathalie West on 01-24-2022 PT Coag (PPP) [Time] 11.5 s 9.0-12.9 [facility] Laboratory - Hematology and Cell countsOrdered By: Nathalie West on 01-24-2022 Nucleated RBC/100 WBC (Bld) [Ratio] 0.0 % 0-0.5 [facility] Lymphocytes Auto (Bld) [#/Vo l]Ordered By: Nathalie West on 01-24-2022 Lymphocytes (Bld) [#/Vol] 1.5 10*3/uL 1.00-4.8 [facility] Lymphocytes/100 WBC Auto (Bl d)Ordered By: Nathalie West on 01-24-2022 Lymphocytes/100 WBC (Bld) 26.0 % [facility] MCH Auto (RBC) [Entitic mass ]Ordered By: Nathalie West on 01-24-2022 MCH (RBC) [Entitic mass] 30.7 pg 24.7-34.3 [facility] MCHC Auto (RBC) [Mass/Vol]Or dered By: Nathalie West on 01-24-2022 MCHC (RBC) [Mass/Vol] 34.1 g/dL 32.0-35.0 [facility] MCV Auto (RBC) [Entitic vol] Ordered By: Nathalie West on 01-24-2022 MCV (RBC) [Entitic vol] 90.0 fL 80-100 [facility] Monocytes Auto (Bld) [#/Vol] Ordered By: Nathalie West on 01-24-2022 Monocytes (Bld) [#/Vol] 0.4 10*3/uL 0.0-0.8 [facility] Monocytes/100 WBC Auto (Bld) Ordered By: Nathalie West on 01-24-2022 Monocytes/100 WBC (Bld) 7.0 % [facility] Neutrophils Auto (Bld) [#/Vo l]Ordered By: Nathalie West on 01-24-2022 Neutrophils (Bld) [#/Vol] 3.6 10*3/uL 1.8-7.7 [facility] Neutrophils/100 WBC Auto (Bl d)Ordered By: Nathalie West on 01-24-2022 Neutrophils/100 WBC (Bld) 61.8 % [facility] No Panel InformationOrdered By: Nathalie West on 01-24-2022 Estimated GFR () > 60 mL/Min [facility] Comment on above: GFR estimated refere nce range: According to KDOQI guidelines, <60 ml/min/1.73m2 is sufficient to diagnose a patient with chronic kidney disease. Pharmacy Creatinine Clearance (Chem N/A [facility] No Panel Informationon 01-24 27.9\\S\\27.9 Normal 25.1-36.5 [facility] 250 DO Work Phone: Comment on above: PERFORMED BY:[place] [address] [place], [place] [phone] MEDICAL DIRECTORREG DRISCOLL M.D. 1.0\\S\\1.0 Normal [facility] 250 DO Work Phone: Comment on above: INR Therapeutic Rang e A) Pre- and Peroperative OAT started two weeks before surgery. NOT HIP SURGERY: 1.5 - 2.5 HIP SURGERY: 2 - 3 B) Primary and secondary prevention of venous THROMBOSIS: 2 - 3 C) Active venous thrombosis, pulmonary embolism and prevention of recurrent venous thrombosis: 2 - 3 D) Prevention of arterial thromboembolism including patients with mechanical heart valves: 3 - 4.5 11.5\\S\\11.5 Normal 9.0-12.9 [facility] bridgette 250 DO Work Phone: [phone] 0.1\\S\\0.1 Normal 0.0-0.2 [facility] bridgette 250 DO Work Phone: [phone] Comment on above: PERFORMED BY:[facility] [place], [place] [id number] MEDICAL DIRECTORREG DRISCOLL M.D. 0.2\\S\\0.2 Normal 0.0-0.45 [facility] bridgette 250 DO Work Phone: [phone] 0.4\\S\\0.4 Normal 0.0-0.8 [facility] bridgette 250 DO Work Phone: 1.5\\S\\1.5 Normal 1.00-4.8 [facility] bridgette 250 DO Work Phone: [phone] 3.6\\S\\3.6 Normal 1.8-7.7 [facility] bridgette 250 DO Work Phone: [phone] 0.0\\S\\0.0 Normal 0-0.5 [facility] bridgette 250 DO Work Phone: [phone] 1.2\\S\\1.2 Normal . [facility] bridgette 250 DO Work Phone: [phone] 4.0\\S\\4.0 Normal . [facility] bridgette 250 DO Work Phone: [phone] 7.0\\S\\7.0 Normal . [facility] bridgette 250 DO Work Phone: [phone] 26.0\\S\\26.0 Normal . [facility] bridgette 250 DO Work Phone: [phone] 61.8\\S\\61.8 Normal . [facility] bridgette 250 DO Work Phone: [phone] 8.1\\S\\8.1 Normal 6.3-10.7 [facility] bridgette 250 DO Work Phone: [phone] 229\\S\\229 Normal 150-450 [facility] bridgette 250 DO Work Phone: [phone] 13.0\\S\\13.0 Normal 11.9-15.3 [facility] bridgette 250 DO Work Phone: [phone] 34.1\\S\\34.1 Normal 32.0-35.0 [facility] bridgette 250 DO Work Phone: [phone] 30.7\\S\\30.7 Normal 24.7-34.3 [facility] DO Work Phone: [phone] 90.0\\S\\90.0 Normal 80-100 [facility] DO Work Phone: [phone] 39.3\\S\\39.3 Normal 34.0-46.4 [facility] DO Work Phone: 13.4\\S\\13.4 Normal 11.8-15.4 [facility] DO Work Phone: [phone] 4.37\\S\\4.37 Normal 3.60-5.00 [facility] DO Work Phone: [phone] 5.8\\S\\5.8 Normal 3.8-11.6 [facility] DO Work Phone: [phone] 27.2\\S\\27.2 Normal 22.0-30.0 [facility] DO Work Phone: [phone] 103\\S\\103 Normal 95-114 [facility] DO Work Phone: [phone] 4.2\\S\\4.2 Normal 3.5-5.1 [facility] bridgette 250 DO Work Phone: 143\\S\\143 Normal 136-146 [facility] 250 DO Work Phone: 16\\S\\16 Normal 9-23 [facility] 250 DO Work Phone: > 60 Normal [facility] [place] 250 DO Work Phone: Comment on above: GFR estimated refere nce range: According to KDOQI guidelines, <60 ml/min/1.73m2 is sufficient to diagnose a patient with chronic kidney disease. 0.85\\S\\0.85 Normal 0.44-1.03 [facility] 250 DO Work Phone: 4.7\\S\\4.7 Normal <5.0 [facility] bridgette 250 DO Work Phone: Comment on above: PERFORMED BY:[facility] [place], [place] [id number] MEDICAL DIRECTORREG DRISCOLL M.D. 33\\S\\33 Normal [facility] 250 DO Work Phone: 168\\S\\168 above high threshold 35-149 [facility] DO Work Phone: Comment on above: TRIG ATP III CLASSIF ICATION TRIG less than 150 mg/dL Normal TRIG 150-199 mg/dL Borderline high TRIG 200-500 mg/dL High TRIG greater than 500 mg/dL Very high Standard traceable to the Center for Disease Conrtrol and Prevention (CDC) test method. 37\\S\\37 Normal 35-85 [facility] bridgette 250 DO Work Phone: Comment on above: HDL CHOL ATP-III CLA SSIFICATION Cardiovascular Risk HDL > or equal to 60 mg/dL LOW HDL < 40 mg/dL HIGH Platelet mean volume Auto (B ld) [Entitic vol]Ordered By: Nathalie West on 01-24-2022 Platelet mean volume (Bld) [Entitic vol] 8.1 fL 6.3-10.7 [facility] Platelet poor plasma interna tional normalized ratio (INR) by coagulation assay (relatOrdered By: Nathalie West on 01-24-2022 INR Coag (PPP) [Relative time] 1.0 {INR} [facility] Comment on above: INR Therapeutic Rang e A) Pre- and Peroperative OAT started two weeks before surgery. NOT HIP SURGERY: 1.5 - 2.5 HIP SURGERY: 2 - 3 B) Primary and secondary prevention of venous THROMBOSIS: 2 - 3 C) Active venous thrombosis, pulmonary embolism and prevention of recurrent venous thrombosis: 2 - 3 D) Prevention of arterial thromboembolism including patients with mechanical heart valves: 3 - 4.5 Platelets Auto (Bld) [#/Vol] Ordered By: Nathalie West on 01-24-2022 Platelets (Bld) [#/Vol] 229 10*3/uL 150-450 [facility] RBC Auto (Bld) [#/Vol]Ordere d By: Nathalie West on 01-24-2022 RBC (Bld) [#/Vol] 4.37 10*6/uL 3.60-5.00 [facility] Serum or plasma chloride braxton surement (moles/volume)Ordered By: Nathalie West on 01-24-2022 Chloride [Moles/Vol] 103 mmol/L 95-114 [facility] Serum or plasma high density lipoprotein (HDL) cholesterol measurementOrdered By: Nathalie West on 01-24-2022 Cholesterol in HDL [Mass/Vol] 37 mg/dL 35-85 [facility] Comment on above: HDL CHOL ATP-III CLA SSIFICATION Cardiovascular Risk HDL > or equal to 60 mg/dL LOW HDL < 40 mg/dL HIGH Serum or plasma potassium me asurement (moles/volume)Ordered By: Nathalie West on 01-24-2022 Potassium [Moles/Vol] 4.2 mmol/L 3.5-5.1 [facility] Serum or plasma sodium measu rement (moles/volume)Ordered By: Nathalie West on 01-24-2022 Sodium [Moles/Vol] 143 mmol/L 136-146 [facility] Serum or plasma total carbon dioxide measurement (moles/volume)Ordered By: Nathalie West on 01-24-2022 CO2 [Moles/Vol] 27.2 mmol/L 22.0-30.0 [facility] Serum or plasma total choles terol/high density lipoprotein (HDL) cholesterol mass ratOrdered By: Nathalie West on 01-24-2022 Cholesterol.total/Chol esterol in HDL [Mass ratio] 4.7 {ratio} [facility] Serum or plasma urea nitroge n measurement (mass/volume)Ordered By: Nathalie West on 01-24-2022 Urea nitrogen [Mass/Vol] 16 mg/dL 9-23 [facility] Triglyceride [Mass/volume] i n Serum or PlasmaOrdered By: Nathalie West on 01-24-2022 Triglyceride [Mass/Vol] 168 mg/dL 35-149 [facility] Comment on above: TRIG ATP III CLASSIF ICATION TRIG less than 150 mg/dL Normal TRIG 150-199 mg/dL Borderline high TRIG 200-500 mg/dL High TRIG greater than 500 mg/dL Very high Standard traceable to the Center for Disease Conrtrol and Prevention (CDC) test method. Basophils Auto (Bld) [#/Vol] Ordered By: Devin Rodriguez on 01-16-2022 Basophils (Bld) [#/Vol] 0.0 10*3/uL 0.0-0.2 [facility] Basophils/100 WBC Auto (Bld) Ordered By: Devin Rodriguez on 01-16-2022 Basophils/100 WBC (Bld) 1.0 % [facility] Blood hemoglobin measurement (mass/volume)Ordered By: Devin Rodriguez on 01-16-2022 Hemoglobin (Bld) [Mass/Vol] 12.9 g/dL 11.8-15.4 [facility] Blood leukocytes automated c ount (number/volume)Ordered By: Devin Rodriguez on 01-16-2022 WBC (Bld) [#/Vol] 4.7 10*3/uL 4.5-11.0 [facility] Cholesterol [Mass/volume] in Serum or PlasmaOrdered By: Devin Rodriguez on 01-16-2022 Cholesterol [Mass/Vol] 118 mg/dL 140-200 [facility] Comment on above: Chol less than 200 m g/dl low risk Chol 201-239 mg/dl borderline risk Chol 240 mg/dl and greater high risk Cholesterol in LDL Calc [Mas s/Vol]Ordered By: Devin Rodriguez on 01-16-2022 Cholesterol in LDL [Mass/Vol] 58 mg/dL 0-100 [facility] Comment on above: LDL ATP III CLASSIFI CATION LDL less than 100 mg/dL Optimal LDL 100-129 mg/dL Near or above optimal LDL 130-159 mg/dL Borderline high LDL 160-189 mg/dL High LDL greater than 189 mg/dL Very high Cholesterol in VLDL Calc [Ma ss/Vol]Ordered By: Devin Rodriguez on 01-16-2022 Cholesterol in VLDL [Mass/Vol] 19 mg/dL [facility] Creatinine and Glomerular fi ltration rate.predicted panel (S/P/Bld)Ordered By: Devin Rodriguez on 01-16-2022 Creatinine [Mass/Vol] 0.92 mg/dL 0.44-1.03 [facility] Eosinophils Auto (Bld) [#/Vo l]Ordered By: Devin Rodriguez on 01-16-2022 Eosinophils (Bld) [#/Vol] 0.1 10*3/uL 0.0-0.45 [facility] Eosinophils/100 WBC Auto (Bl d)Ordered By: Devin Rodriguez on 01-16-2022 Eosinophils/100 WBC (Bld) 1.9 % [facility] Erythrocyte distribution wid th Auto (RBC) [Ratio]Ordered By: Devin Rodriguez on 01-16-2022 Erythrocyte distribution width (RBC) [Ratio] 13.1 % 11.9-15.3 [facility] Estimated glomerular filtrat ion rate (GFR) non- AmericanOrdered By: Devin Rodriguez on 01-16-2022 GFR/1.73 sq M.predicted among non-blacks MDRD (S/P/Bld) [Vol rate/Area] > 60 mL/Min [facility] Glucose mean value [Mass/vol ume] in Blood Estimated from glycated hemoglobinOrdered By: Michael Mcneil on 01-16-2022 Average glucose Estimated from glycated hemoglobin (Bld) [Mass/Vol] 120 mg/dL [facility] Hematocrit Auto (Bld) [Volum e fraction]Ordered By: Devin Rodriguez on 01-16-2022 Hematocrit (Bld) [Volume fraction] 37.8 % 34.0-46.4 [facility] Hemoglobin A1c percentageOrd ered By: Michael Mcneil on 01-16-2022 HbA1c (Bld) [Mass fraction] 5.8 % 4.3-5.6 [facility] Comment on above: Increased risk for d iabetes: 5.7 - 6.4 diabetes: >6.4 glycemic control for adults with diabetes: <7.0 Laboratory - Hematology and Cell countsOrdered By: Devin Rodriguez on 01-16-2022 Nucleated RBC/100 WBC (Bld) [Ratio] 0.1 % 0-0.5 [facility] Lymphocytes Auto (Bld) [#/Vo l]Ordered By: Devin Rodriguez on 01-16-2022 Lymphocytes (Bld) [#/Vol] 0.9 10*3/uL 1.00-4.8 [facility] Lymphocytes/100 WBC Auto (Bl d)Ordered By: Devin Rodriguez on 01-16-2022 Lymphocytes/100 WBC (Bld) 18.4 % [facility] MCH Auto (RBC) [Entitic mass ]Ordered By: Devin Rodriguez on 01-16-2022 MCH (RBC) [Entitic mass] 30.6 pg 24.7-34.3 [facility] MCHC Auto (RBC) [Mass/Vol]Or dered By: Devin Rodriguez on 01-16-2022 MCHC (RBC) [Mass/Vol] 34.0 g/dL 32.0-35.0 [facility] MCV Auto (RBC) [Entitic vol] Ordered By: Devin Rodriguez on 01-16-2022 MCV (RBC) [Entitic vol] 89.9 fL 80-100 [facility] Monocytes Auto (Bld) [#/Vol] Ordered By: Devin Rodriguez on 01-16-2022 Monocytes (Bld) [#/Vol] 0.5 10*3/uL 0.0-0.8 [facility] Monocytes/100 WBC Auto (Bld) Ordered By: Devin Rodriguez on 01-16-2022 Monocytes/100 WBC (Bld) 9.9 % [facility] Neutrophils Auto (Bld) [#/Vo l]Ordered By: Devin Rodriguez on 01-16-2022 Neutrophils (Bld) [#/Vol] 3.2 10*3/uL 1.8-7.7 [facility] Neutrophils/100 WBC Auto (Bl d)Ordered By: Devin Rodriguez on 01-16-2022 Neutrophils/100 WBC (Bld) 68.8 % [facility] No Panel InformationOrdered By: Devin Rodriguez on 01-16-2022 Estimated GFR () > 60 mL/Min [facility] Comment on above: GFR estimated refere nce range: According to KDOQI guidelines, <60 ml/min/1.73m2 is sufficient to diagnose a patient with chronic kidney disease. Pharmacy Creatinine Clearance (Chem 71.32 [facility] Platelet mean volume Auto (B ld) [Entitic vol]Ordered By: Devin Rodriguez on 01-16-2022 Platelet mean volume (Bld) [Entitic vol] 8.5 fL 6.3-10.7 [facility] Platelets Auto (Bld) [#/Vol] Ordered By: Devin Rodriguez on 01-16-2022 Platelets (Bld) [#/Vol] 192 10*3/uL 150-450 [facility] RBC Auto (Bld) [#/Vol]Ordere d By: Devin Rodriguez on 01-16-2022 RBC (Bld) [#/Vol] 4.21 10*6/uL 3.60-5.00 [facility] Serum or plasma calcium hai urement (mass/volume)Ordered By: Devin Rodriguez on 01-16-2022 Calcium [Mass/Vol] 9.0 mg/dL 8.2-10.2 [facility] Serum or plasma chloride braxton surement (moles/volume)Ordered By: Devin Rodriguez on 01-16-2022 Chloride [Moles/Vol] 103 mmol/L 95-114 [facility] Serum or plasma glucose hai urement (mass/volume)Ordered By: Devin Rodriguez on 01-16-2022 Glucose [Mass/Vol] 111 mg/dL 70-100 [facility] Comment on above: ADA recommended refe rence range Random Glucose Reference Range is dependent on time and content of last meal. Glucose of more than 200 mg/dL in a nonstressed, ambulatory subject supports the diagnosis of Diabetes Mellitus. Serum or plasma high density lipoprotein (HDL) cholesterol measurementOrdered By: Devin Rodriguez on 01-16-2022 Cholesterol in HDL [Mass/Vol] 41 mg/dL 35-85 [facility] Comment on above: HDL CHOL ATP-III CLA SSIFICATION Cardiovascular Risk HDL > or equal to 60 mg/dL LOW HDL < 40 mg/dL HIGH Serum or plasma potassium me asurement (moles/volume)Ordered By: Devin Rodriguez on 01-16-2022 Potassium [Moles/Vol] 3.5 mmol/L 3.5-5.1 [facility] Serum or plasma sodium measu rement (moles/volume)Ordered By: Devin Rodriguez on 01-16-2022 Sodium [Moles/Vol] 137 mmol/L 136-146 [facility] Serum or plasma total carbon dioxide measurement (moles/volume)Ordered By: Devin Rodriguez on 01-16-2022 CO2 [Moles/Vol] 23.5 mmol/L 22.0-30.0 [facility] Serum or plasma total choles terol/high density lipoprotein (HDL) cholesterol mass ratOrdered By: Devin Rodriguez on 01-16-2022 Cholesterol.total/Chol esterol in HDL [Mass ratio] 2.9 {ratio} [facility] Serum or plasma urea nitroge n measurement (mass/volume)Ordered By: Devin Rodriguez on 01-16-2022 Urea nitrogen [Mass/Vol] 10 mg/dL 9-23 [facility] Triglyceride [Mass/volume] i n Serum or PlasmaOrdered By: Devin Rodriguez on 01-16-2022 Triglyceride [Mass/Vol] 96 mg/dL 35-149 [facility] Comment on above: TRIG ATP III CLASSIF ICATION TRIG less than 150 mg/dL Normal TRIG 150-199 mg/dL Borderline high TRIG 200-500 mg/dL High TRIG greater than 500 mg/dL Very high Standard traceable to the Center for Disease Conrtrol and Prevention (CDC) test method. Troponin I.cardiac [Mass/vol ume] in Serum or Plasma by High sensitivity methodOrdered By: Devin Rodriguez on 01-16-2022 Troponin I.cardiac High sensitivity method [Mass/Vol] 4 pg/mL 0-15 [facility] Troponin I.cardiac High sensitivity method [Mass/Vol] 3 pg/mL 0-15 [facility] Activated partial thrombopla stin time (aPTT) in platelet poor plasma by coagulation aOrdered By: Alexsander Lehman on 01-15-2022 aPTT Coag (PPP) [Time] 30.3 s 25.1-36.5 [facility] Basophils Auto (Bld) [#/Vol] Ordered By: Alexsander Lehman on 01-15-2022 Basophils (Bld) [#/Vol] 0.1 10*3/uL 0.0-0.2 [facility] Basophils/100 WBC Auto (Bld) Ordered By: Alexsander Lemhan on 01-15-2022 Basophils/100 WBC (Bld) 1.1 % [facility] Blood hemoglobin measurement (mass/volume)Ordered By: Alexsander Lehman on 01-15-2022 Hemoglobin (Bld) [Mass/Vol] 14.2 g/dL 11.8-15.4 [facility] Blood leukocytes automated c ount (number/volume)Ordered By: Alexsander Lehman on 01-15-2022 WBC (Bld) [#/Vol] 7.2 10*3/uL 4.5-11.0 [facility] COVID-19 SOFIAOrdered By: Sincere Lehman on 01-15-2022 SARS-CoV+SARS-CoV-2 (COVID-19) Ag IA.rapid Ql (Resp) Positive Negative [facility] Comment on above: This is a duplicate Iza SARS Antigen (SILVINA) result to be used for statistical tracking purpose only. Creatine kinase [Enzymatic a ctivity/volume] in Serum or PlasmaOrdered By: Alexsander Lehman on 01-15-2022 CK [Catalytic activity/Vol] 234 U/L 22-269 [facility] Creatinine and Glomerular fi ltration rate.predicted panel (S/P/Bld)Ordered By: Alexsander Lehman on 01-15-2022 Creatinine [Mass/Vol] 1.07 mg/dL 0.44-1.03 [facility] Eosinophils Auto (Bld) [#/Vo l]Ordered By: Alexsander Lehman on 01-15-2022 Eosinophils (Bld) [#/Vol] 0.2 10*3/uL 0.0-0.45 [facility] Eosinophils/100 WBC Auto (Bl d)Ordered By: Alexsander Lehman on 01-15-2022 Eosinophils/100 WBC (Bld) 2.8 % [facility] Erythrocyte distribution wid th Auto (RBC) [Ratio]Ordered By: Alexsander Lehman on 01-15-2022 Erythrocyte distribution width (RBC) [Ratio] 13.0 % 11.9-15.3 [facility] Estimated glomerular filtrat ion rate (GFR) non- AmericanOrdered By: Alexsander Lehman on 01-15-2022 GFR/1.73 sq M.predicted among non-blacks MDRD (S/P/Bld) [Vol rate/Area] 53 mL/Min [facility] Hematocrit Auto (Bld) [Volum e fraction]Ordered By: Alexsander Lehman on 01-15-2022 Hematocrit (Bld) [Volume fraction] 42.0 % 34.0-46.4 [facility] Laboratory - Chemistry and C hemistry - challengeOrdered By: Alexsander Lehman on 01-15-2022 Natriuretic peptide B (Bld) [Mass/Vol] 19.0 pg/mL 5-100 [facility] - CoagulationOrde red By: Alexsander Lehman on 01-15-2022 PT Coag (PPP) [Time] 11.5 s 9.0-12.9 [facility] Laboratory - Hematology and Cell countsOrdered By: Alexsander Lehman on 01-15-2022 Nucleated RBC/100 WBC (Bld) [Ratio] 0.0 % 0-0.5 [facility] Lymphocytes Auto (Bld) [#/Vo l]Ordered By: Alexsander Lehman on 01-15-2022 Lymphocytes (Bld) [#/Vol] 1.0 10*3/uL 1.00-4.8 [facility] Lymphocytes/100 WBC Auto (Bl d)Ordered By: Alexsander Lehman on 01-15-2022 Lymphocytes/100 WBC (Bld) 14.3 % [facility] MCH Auto (RBC) [Entitic mass ]Ordered By: Alexsander Lehman on 01-15-2022 MCH (RBC) [Entitic mass] 30.5 pg 24.7-34.3 [facility] MCHC Auto (RBC) [Mass/Vol]Or dered By: Alexsander Lehman on 01-15-2022 MCHC (RBC) [Mass/Vol] 33.7 g/dL 32.0-35.0 [facility] MCV Auto (RBC) [Entitic vol] Ordered By: Alexsander Lehman on 01-15-2022 MCV (RBC) [Entitic vol] 90.5 fL 80-100 [facility] Monocytes Auto (Bld) [#/Vol] Ordered By: Alexsander Lehman on 01-15-2022 Monocytes (Bld) [#/Vol] 0.6 10*3/uL 0.0-0.8 [facility] Monocytes/100 WBC Auto (Bld) Ordered By: Alexsander Lehman on 01-15-2022 Monocytes/100 WBC (Bld) 8.3 % [facility] Neutrophils Auto (Bld) [#/Vo l]Ordered By: Alexsander Lehman on 01-15-2022 Neutrophils (Bld) [#/Vol] 5.3 10*3/uL 1.8-7.7 [facility] Neutrophils/100 WBC Auto (Bl d)Ordered By: Alexsander Lehman on 01-15-2022 Neutrophils/100 WBC (Bld) 73.5 % [facility] No Panel InformationOrdered By: Alexsander Lehman on 01-15-2022 SARS Antigen (LFIA) [facility] D-Dimer Quantitative (PE/DVT) 422 ng/mL 0-243 [facility] Comment on above: The reference range for D-dimer is <243 ng/mL D-dimer units. D-dimer results must be used in conjunction with a clinical pretest probability (PTP) assessment model for deep vein thrombosis (DVT) and pulmonary embolism (PE). Results <230 ng/mL d-dimer units can be used as a negative predictor in patients with low or moderate probability for DVT/PE. Results above the exclusion threshold of 230 ng/ml D-dimer units for DVT/PE may indicate the need for further diagnostic testing. D-Dimer can be increased in hospitalized patients due to co-morbid conditions. Estimated GFR () > 60 mL/Min [facility] Comment on above: GFR estimated refere nce range: According to KDOQI guidelines, <60 ml/min/1.73m2 is sufficient to diagnose a patient with chronic kidney disease. Pharmacy Creatinine Clearance (Chem 61.19 [facility] Platelet mean volume Auto (B ld) [Entitic vol]Ordered By: Alexsander Lehman on 01-15-2022 Platelet mean volume (Bld) [Entitic vol] 8.4 fL 6.3-10.7 [facility] Platelet poor plasma interna tional normalized ratio (INR) by coagulation assay (relatOrdered By: Alexsander Lehman on 01-15-2022 INR Coag (PPP) [Relative time] 1.0 {INR} [facility] Comment on above: INR Therapeutic Rang e A) Pre- and Peroperative OAT started two weeks before surgery. NOT HIP SURGERY: 1.5 - 2.5 HIP SURGERY: 2 - 3 B) Primary and secondary prevention of venous THROMBOSIS: 2 - 3 C) Active venous thrombosis, pulmonary embolism and prevention of recurrent venous thrombosis: 2 - 3 D) Prevention of arterial thromboembolism including patients with mechanical heart valves: 3 - 4.5 Platelets Auto (Bld) [#/Vol] Ordered By: Alexsander Lehman on 01-15-2022 Platelets (Bld) [#/Vol] 207 10*3/uL 150-450 [facility] RBC Auto (Bld) [#/Vol]Ordere d By: Alexsander Lehman on 01-15-2022 RBC (Bld) [#/Vol] 4.64 10*6/uL 3.60-5.00 [facility] Serum or plasma calcium hai urement (mass/volume)Ordered By: Alexsander Lehman on 01-15-2022 Calcium [Mass/Vol] 9.1 mg/dL 8.2-10.2 [facility] Serum or plasma chloride braxton surement (moles/volume)Ordered By: Alexsander Lehman on 01-15-2022 Chloride [Moles/Vol] 102 mmol/L 95-114 [facility] Serum or plasma creatine kin ase MB (CKMB)/total creatine kinase (CK) ratio by calculaOrdered By: Alexsander Lehman on 01-15-2022 CK.MB Calc [Catalytic fraction] 1.1 % 0.00-2.50 [facility] Serum or plasma creatine kin ase MB measurement (mass/volume)Ordered By: Alexsander Lehman on 01-15-2022 CK.MB [Mass/Vol] 2.6 ng/mL 0.6-6.3 [facility] Serum or plasma glucose hai urement (mass/volume)Ordered By: Alexsander Lehman on 01-15-2022 Glucose [Mass/Vol] 106 mg/dL 70-100 [facility] Comment on above: ADA recommended refe rence range Random Glucose Reference Range is dependent on time and content of last meal. Glucose of more than 200 mg/dL in a nonstressed, ambulatory subject supports the diagnosis of Diabetes Mellitus. Serum or plasma potassium me asurement (moles/volume)Ordered By: Alexsander Lehman on 01-15-2022 Potassium [Moles/Vol] 3.7 mmol/L 3.5-5.1 [facility] Serum or plasma sodium measu rement (moles/volume)Ordered By: Alexsander Lehman on 01-15-2022 Sodium [Moles/Vol] 138 mmol/L 136-146 [facility] Serum or plasma total carbon dioxide measurement (moles/volume)Ordered By: Alexsander Lehman on 01-15-2022 CO2 [Moles/Vol] 25.1 mmol/L 22.0-30.0 [facility] Serum or plasma urea nitroge n measurement (mass/volume)Ordered By: Alexsander Lehman on 01-15-2022 Urea nitrogen [Mass/Vol] 17 mg/dL 9-23 [facility] MILY SCREENINGon 11-18-2021 [facility] ANES POSTPROC EVALon 021 ANES POSTPROC EVAL HNO ID: [id number] Author: Jane Landers MD Service: Anesthesiology Author Type: Anesthesiologist Type: Anesthesia Postprocedure Evaluation Filed: 06/13/2021 3:42 PM Note Text: POST ANESTHESIA EVALUATION NOTE : 1965 Procedure Summary Date: 06/13/21 Room / Location: OR02A / [facility] OR Anesthesia Start: 1305 Anesthesia Stop: 1400 Procedure: LAPAROSCOPY DIAGNOSTIC (N/A Abdomen) Diagnosis: Left upper quadrant pain (Left upper quadrant pain [R10.12]) Surgeons: Melissa Burgos MD Responsible Provider: Jane Landers MD Anesthesia Type: general ASA Status: 3 Anesthesia Type: general Last vitals Vitals Value Taken Time BP 126/57 06/13/21 1530 Temp 36.5 ?C (97.7 ?F) 06/13/21 1357 Pulse 52 06/13/21 1541 Resp 16 06/13/21 1541 SpO2 96 % 06/13/21 1541 Vitals shown include unvalidated device data. Post Anesthesia Patient Status Patient Evaluation: PACU. PACU/ICU Patient Condition: stable. Anticipated Disposition: inpatient floor planned admission. Neurological Status: aware and responsive. Pulmonary Status: breathing comfortably on supplemental oxygen Airway Control: returned to baseline unsupported. Cardiovascular Status: stable. Pain Management: clinically adequate Postoperative Hydration: acceptable. Intraoperative Events: no significant anesthesia events Post Operative Nausea/Vomiting Status: no significant post operative nausea or vomiting Anesthetic Observations: Recommendation: continue current plan of care. Anesthesia Observations No Documentation SIGNATURE: Jane Landers MD PATIENT NAME: Joy Hawthorne DATE: June 13, 2021 TIME: 3:41 PM CSN: [id number] [facility] ANES PRE-OPon 06-13-2021 ANES PRE-OP HNO ID: [id number] Author: Jane Landers MD Service: Anesthesiology Author Type: Anesthesiologist Type: Anesthesia Preprocedure Evaluation Filed: 06/13/2021 12:51 PM Note Text: ANESTHESIOLOGY DAY OF SURGERY NOTE : 1965 Procedure(s) (LRB): LAPAROSCOPY DIAGNOSTIC (N/A) LAPAROSCOPIC HERNIORRHAPHY INCISIONAL ABDOMEN REDUCIBLE (N/A) Surgeon(s): Melissa Burgos MD Estimated body mass index is 36.31 kg/m? as calculated from the following: Height as of 05/26/21: 160 cm (5' 3 ). Weight as of 05/26/21: 93 kg (205 lb). Most recent hematocrit and potassium results: Hematocrit 43.1 04/04/2021 Potassium 4.0 04/04/2021 Relevant Problems CARDIO (+) Atherosclerotic coronary vascular disease (+) HTN (hypertension) (+) Presence of drug coated stent in right coronary artery ENDO (+) Diabetes mellitus type 2, controlled, without complications (HCC) GI (+) Gastroesophageal reflux disease without esophagitis NEURO-PSYCH (+) History of asthma Other (+) Idiopathic chronic gout of right foot without tophus I - PHYSICAL EVALUATION AIRWAY Patient intubated: No. Tracheostomy tube not present Mallampati: II. TM distance: >3 FB. Neck ROM: full ROM without neurological symptoms. Mouth opening: adequate. Short neck: no. Thick neck: no DENTAL Dental findings: teeth intact. II - ANESTHESIA PLAN ASA Score: 3 Anesthetic Plan: general Airway type: ETT The patient is not a current smoker. NPO Status: adequate Monitoring plan: standard ASA. Postoperative analgesic plan: parenteral or oral opioids. Anesthetic Risks, Benefits, Alternatives, Personnel Discussed. Consent obtained from: patient.Patient / Surrogate agrees to blood products: Yes Significant changes in the patient condition since the History and Physical, not otherwise documented in primary service progress note: no. Potential Anesthesia issues that may suggest increased risk of complications or contraindication to planned procedure: none. Vitals Value Taken Time BP 116/80 06/13/21 1200 Pulse 55 06/13/21 1200 Resp 16 06/13/21 1200 Temp 37 ?C (98.6 ?F) 06/13/21 1200 SpO2 99 % 06/13/21 1200 Facility-Administered Medications as of 06/13/2021 Medication Dose Route Frequency - lidocaine 10 mg/mL (1 %) 1-2 mg injection (XYLOCAINE) 0.1-0.2 mL INTRADERMAL PRN - lactated ringers iv infusion 5-30 mL/hr INTRAVENOUS CONTINUOUS - heparin 5,000 Units injection 5,000 Units SUBCUTANEOUS ONCE - ceFAZolin iv piggyback 2 g in D5W (iso-osmotic) 100 mL (ANCEF) 2 g INTRAVENOUS Pre-Op Once - [COMPLETED] acetaminophen 650 mg tab(s) (TYLENOL) 650 mg ORAL Pre-Op Once - [COMPLETED] promethazine 12.5 mg tab(s) (PHENERGAN) 12.5 mg ORAL Pre-Op Once - lactated ringers iv infusion 30 mL/hr INTRAVENOUS CONTINUOUS Outpatient Medications as of 06/13/2021 Medication Sig - sucralfate (CARAFATE) 1 gram tablet Take 1 g by mouth four times daily. - rosuvastatin (CRESTOR) 40 mg tablet TAKE 1 TABLET DAILY AT BEDTIME - losartan (COZAAR) 25 mg tablet TAKE 1 TABLET DAILY - MITIGARE 0.6 mg capsule TAKE 1 CAPSULE TWICE A DAY (TAKE 1 CAPSULE ONCE DAILY AND IF NEEDED CAN INCREASE TO TWICE A DAY INSTRUCTED) - sertraline (ZOLOFT) 100 mg tablet TAKE 1 TABLET DAILY - nebivolol (BYSTOLIC) 10 mg tablet TAKE 2 TABLETS (20 MG) IN THE MORNING AND 1 TABLET (10 MG) IN THE EVENING - pantoprazole DR (PROTONIX) 40 mg tablet TAKE 1 TABLET DAILY - nitroglycerin sublingual (NITROQUICK) 0.4 mg SL tablet DISSOLVE 1 TABLET UNDER THE TONGUE NEEDED FOR CHEST PAIN - aspirin, enteric coated (ECOTRIN LOW STRENGTH) 81 mg EC tablet Take 1 tablet by mouth once daily. I have interviewed and examined the patient. I have reviewed the medical record and/or the pre-anesthesia evaluation, pertinent labs, and test results. This contains updated information obtained within 48 hours of Surgery/Procedure. SIGNATURE: Jane Landers MD PATIENT NAME: Joy Hawthorne DATE: June 13, 2021 TIME: 12:50 PM CSN: [id number] [facility] BRIEF OP NOTon 06-13-2021 BRIEF OP NOT HNO ID: [id number] Author: Lennox Puri MD Service: General Surgery Author Type: Resident Type: Brief Op Note Filed: 06/13/2021 1:45 PM Note Text: BRIEF OPERATIVE / PROCEDURE NOTE LOG ID: [id number] SURGERY/PROCEDURE DATE: 06/13/2021 INCISION/PROCEDURE START TIME: 1:22 PM INCISION CLOSE/PROCEDURE END TIME: 1:41 PM SURGEON(S)/PROCEDURALIST(S) AND END TOUCHING MACHINE OPERATOR(S): Surgeon(s) and Role: * Melissa Burgos MD - Primary * Lennox Puri MD - Resident - Assisting No Additional Staff SURGERY/PROCEDURE(S): diagnostic laparoscopy, removal of LUQ abdominal wall suture ANESTHESIA: General FINDINGS: area of LUQ peritoneal scarring with permanent suture corresponding to area of pain. Likely prior gastropexy site. ESTIMATED BLOOD LOSS: 10 mls SPECIMENS: None COMPLICATIONS: None Wound Class: clean PRE-OP/PRE-PROCEDURE DIAGNOSIS: LUQ pain POST-OP/POST-PROCEDURE DIAGNOSIS: LUQ suture site pain SIGNATURE: Lennox Puri MD PATIENT NAME: Joy Hawthorne DATE: June 13, 2021 TIME: 1:43 PM [facility] HISTORY PHYSICALon HISTORY PHYSICAL HNO ID: [id number] Author: Lennox Puri MD Service: General Surgery Author Type: Resident Type: HANDP Filed: 06/13/2021 12:49 PM Note Text: Attestation signed by Melissa Burgos MD at 06/13/2021 2:16 PM Melissa Burgos MD GENERAL SURGERY HANDP NOTE SERVICE DATE: 06/13/2021 SERVICE TIME: 12:46 PM PRIMARY CARE PHYSICIAN: Mack Uribe MD ASSESSMENT AND PLAN 56 yo female with LUQ pain of unclear etiology who presents for diagnostic laparoscopy and abdominal wall exploration today. Consent in chart. Lennox Puri MD General Surgery PGY2 Pager All plans preliminary pending discussion with senior resident and nondestructive tester surgery staff Patient Active Hospital Problem List: No active hospital problems. SUBJECTIVE CHIEF COMPLAINT: LUQ pain HPI: This is a 56 year old female with past history including sigmoid colectomy and lap PEH with toupet fundoplication in December 2020 with subsequent persistent LUQ abdominal pain of unclear etiology. She was seen in the clinic and due to concern for occult hernia, plans to proceed with surgical intervention. PAST MEDICAL HISTORY: PAST MEDICAL HISTORY Diagnosis Date - Asthma dx'd 15 yrs ago- has not been on medication - Atherosclerotic coronary vascular disease 05/20/2015 Lexiscan perfusion normal, EF 68%; Echo normal; Cath 05/2014 Irregularies wiith 50% rca in-stent stenosis. 09/2012 RCA CARRI X2 to prox vessel - Bradycardia - CAD (coronary artery disease) - Carpal tunnel syndrome - Chest pain - Colon polyp Cscope 05/29/14 w polyps, f/u 3 yrs. - Depression - Diverticulitis - NARCISO (generalized anxiety disorder) - HTN (hypertension) - Hyperlipidemia - Pneumonia - Sleep apnea - Suspected COVID-19 virus infection 03/04/2020 - Vitamin D deficiency 04/09/2012 PAST SURGICAL HISTORY: PAST SURGICAL HISTORY Procedure Laterality Date - CARDIAC CATHETERIZATION HX stents x 2 - COLONOSCOPY 05/29/14 - repeat 3 years - ECHO 05/20/15 mildly dilated IVC - HERNIA REPAIR HX Bilateral -hiatal hernia - LEFT HEART CATH 05/12/14 - LEXISCAN STRESS TEST PANEL 05/20/15 NORMAL - PART REMOVAL COLON W ANASTOMOSIS 2017 Sigmoidectomy - REMOVAL OF OVARY/TUBE(S) 1994 Salpingo-oophorectomy - TOTAL ABDOM HYSTERECTOMY 1989 Hysterectomy, DORENE FAMILY HISTORY: FAMILY HISTORY Problem Relation Age of Onset - Colon Cancer Mother 53 - Hypertension Mother - Diabetes Mother - Diabetes Father - Coronary Artery Disease Father Multiple stents in early 60's, age 70 - Hypertension Father - Hypertension Brother - Cancer Brother epithelioid of leg. - Coronary Artery Disease Paternal Uncle - Coronary Artery Disease Paternal Uncle - Coronary Artery Disease Paternal Aunt - Colon Cancer Maternal Grandmother - other (htn) Maternal Grandmother - other (lung cancer) Maternal Grandfather SOCIAL HISTORY: Social History Tobacco Use - Smoking status: Never Smoker - Smokeless tobacco: Never Used Vaping Use - Vaping Use: Never used Substance Use Topics - Alcohol use: No - Drug use: No MEDICATIONS: Prior to Admission Medications sucralfate (CARAFATE) 1 gram tablet, Take 1 g by mouth four times daily., Disp: , Rfl: , 06/12/2021 at 1999 rosuvastatin (CRESTOR) 40 mg tablet, TAKE 1 TABLET DAILY AT BEDTIME, Disp: 90 tablet, Rfl: 3, 06/12/2021 at 1999 losartan (COZAAR) 25 mg tablet, TAKE 1 TABLET DAILY, Disp: 90 tablet, Rfl: 3, 06/12/2021 at 1999 MITIGARE 0.6 mg capsule, TAKE 1 CAPSULE TWICE A DAY (TAKE 1 CAPSULE ONCE DAILY AND IF NEEDED CAN INCREASE TO TWICE A DAY INSTRUCTED), Disp: 180 capsule, Rfl: 3, 06/12/2021 at 1999 sertraline (ZOLOFT) 100 mg tablet, TAKE 1 TABLET DAILY, Disp: 90 tablet, Rfl: 2, 06/12/2021 at 1999 nebivolol (BYSTOLIC) 10 mg tablet, TAKE 2 TABLETS (20 MG) IN THE MORNING AND 1 TABLET (10 MG) IN THE EVENING, Disp: 270 tablet, Rfl: 2, 06/13/[address] (PROTONIX) 40 mg tablet, TAKE 1 TABLET DAILY, Disp: 90 tablet, Rfl: 2, 06/05/2021 at Unknown time nitroglycerin sublingual (NITROQUICK) 0.4 mg SL tablet, DISSOLVE 1 TABLET UNDER THE TONGUE NEEDED FOR CHEST PAIN, Disp: 25 tablet, Rfl: 44, Unknown at Unknown time aspirin, enteric coated (ECOTRIN LOW STRENGTH) 81 mg EC tablet, Take 1 tablet by mouth once daily., Disp: , Rfl: , 06/05/2021 at 0800 CURRENT ALLERGIES: ALLERGIES Allergen Reactions - Allopurinol Rash patient reported in Home Inventory S[pecialists message noted on November 21, 2017 - Bactrim [Sulfametho* Hives - Neurontin [Gabapent* Other: See Comments Mouth sores COMPLETE REVIEW OF SYSTEMS: Negative except as noted in HPI OBJECTIVE PHYSICAL EXAM: Patient Vitals for the past 24 hrs: BP Temp Temp src Pulse Resp SpO2 06/13/21 1200 116/80 37 ?C (98.6 ?F) Temporal (!) 55 (more content not included)... Normal [facility] NURSING PROGon 06-13-2021 NURSING PROG HNO ID: [id number] Author: Clarisa Rios RN Service: Nursing Author Type: Registered Nurse Type: Nursing Progress Note Filed: 06/13/2021 5:06 PM Note Text: PATIENT EDUCATION TOPIC: PROCEDURE / SURGERY: Post-op Teaching: Med Administration, Symptom Management and Wound Care PATIENT NAME: Joy Hawthorne PATIENT LOCATION: [place]/[facility] OR POOL READINESS TO LEARN COGNITIVE ABILITY: Alert and oriented MOTIVATION TO LEARN: Interested FAMILY SUPPORT: None - Unavailable/disinterested INSTRUCTION PROVIDED TO: Patient PATIENT LEARNS BEST BY: Individual Instruction FACTORS AFFECTING LEARNING: None PHYSICAL LIMITATIONS AFFECTING LEARNING: None LEARNING RESPONSE DIAGNOSIS: Diagnostic Lap PATIENT/FAMILY RESPONSE: Verbalizes understanding of: POST-OPERATIVE INSTRUCTIONS-Correct actions to take to reduce postoperative complications POST-PROCEDURE INSTRUCTIONS-Correct actions to take to reduce post procedure complications METHOD OF INSTRUCTION: Individual instruction FOLLOW-UP PLAN: Patient instructed to call with any further issues Follow-up with Primary Care INSTRUCTIONAL AIDS USED: NA SUPPLEMENTAL MATERIAL PROVIDED TO PATIENT: None REFERRAL (RECOMMENDATION): None Electronically Signed By: Clarisa Rios [facility] NURSING PROG HNO ID: [id number] Author: Chata Langford RN Service: Nursing Author Type: Registered Nurse Type: Nursing Progress Note Filed: 06/13/2021 3:06 PM Note Text: Nursing Progress Note Patient Name: Joy Hawthrone Patient Location: OR PO[place]/[facility] OR POOL Daily Note: 1440: Dr. Landers notified of sinus ayde 30s-40s pt asymptomatic at this time will continue to monitor 1450: Dr. Landers at bedside, pt awake A/Ox 3 bradycardiac on the monitor This note was completed by: Chata Langford [facility] NURSING PROG HNO ID: [id number] Author: Luis Ivey RN Service: Nursing Author Type: Registered Nurse Type: Nursing Progress Note Filed: 06/13/2021 11:52 AM Note Text: PATIENT EDUCATION TOPIC: PROCEDURE / SURGERY: Pre-op Teaching: Protocols PATIENT NAME: Joy Hawthorne PATIENT LOCATION: [facility] OR POOL/[facility] OR POOL READINESS TO LEARN COGNITIVE ABILITY: Alert and oriented MOTIVATION TO LEARN: Interested FAMILY SUPPORT: None - Unavailable/disinterested INSTRUCTION PROVIDED TO: Patient PATIENT LEARNS BEST BY: Individual Instruction FACTORS AFFECTING LEARNING: None PHYSICAL LIMITATIONS AFFECTING LEARNING: None LEARNING RESPONSE DIAGNOSIS: ADULT: Well Adult PATIENT/FAMILY RESPONSE: Verbalizes understanding of: PRE-OPERATIVE INSTRUCTIONS-Correct action to take to follow pre-operative instructions METHOD OF INSTRUCTION: Individual instruction FOLLOW-UP PLAN: Complete - No need for follow-up INSTRUCTIONAL AIDS USED: NA SUPPLEMENTAL MATERIAL PROVIDED TO PATIENT: None REFERRAL (RECOMMENDATION): None Electronically Signed By: Luis Ivey [facility] OPERATIVE NOon 06-13-2021 OPERATIVE NO HNO ID: [id number] Author: Melissa Burgos MD Service: General Surgery Author Type: Physician Type: Operative Report Filed: 06/15/2021 6:53 PM Note Text: [facility] - Operative Report JOY HAWTHORNE : 1965 AGE: 56. SEX: F PATIENT TYPE: A HOSP SVC: [facility] LOCATION: [facility] ATTENDING PHYSICIAN: Melissa Burgos M.D. CSN NUMBER: [id number] DATE OF SURGERY/PROCEDURE: 06/13/2021 INCISION/PROCEDURE START TIME: 1322 hours. INCISION CLOSE/PROCEDURE END TIME: 1341 hours. PREOPERATIVE DIAGNOSIS: Focal abdominal wall pain. POSTOPERATIVE DIAGNOSIS: same SURGEON: Melissa Burgos M.D. END TOUCHING MACHINE OPERATOR: Dr. Lennox Da Silva. SURGERY/PROCEDURE: Diagnostic laparoscopy, removal of foreign body from the abdominal wall. ANESTHESIA: General. ESTIMATED BLOOD LOSS: Minimal. COMPLICATIONS: None immediate. DISPOSITION: To Recovery in stable condition. DESCRIPTION OF PROCEDURE: After marking the focal area of tenderness on the patient's abdomen in the preoperative area, the patient was taken to the operating room, placed on the anesthesia table in supine position. After induction of anesthesia, the area of the abdomen was prepped and draped in normal sterile fashion. After appropriate time-out, a small incision was made on the right side in the periumbilical region over the right rectus muscle. The abdomen was entered using optical entry method and insufflated to 15 mmHg. Initial visualization right below the area of concern for the patient in the left upper quadrant where she had focal pain revealed some peritoneal irregularities which may be consistent with either a hernia or foreign body in the abdominal wall. With that, we inserted 2 other 5 mm ports in the right side of the abdomen at the anterior axillary line. We started to then peel the peritoneum from the abdominal wall using the hook cautery as we opened the peritoneum and as soon as we were able to open the peritoneal reflection about 2 cm, we encountered a suture material in the abdominal wall muscle with some surrounding inflammation and granuloma formation. The suture material was pulled and cut, and the scar was cut with the cautery, and we injected the area with Exparel for postoperative analgesia under direct laparoscopic visualization. Once this procedure was completed, we did not see any other hernias. The muscle was intact and the foreign body was removed which again corresponded immediately and exactly to where the patient was experiencing her pain. Once the suture was cut and removed, all ports were removed under direct visualization. All ports infiltrated with Exparel, approximated with subcuticular 4-0 Monocryl and the application of Exofin glue. The patient was awakened from anesthesia, transferred to recovery in stable condition. All counts of sponges, needles, and instruments were correct at the end of the case. I am, Dr. Burgos, the attending physician. I was present through the entire operation. Melissa Burgos M.D. DA:[id number] /[id number] [facility] ANES POSTPROC EVALon 04-07-2 021 ANES POSTPROC EVAL HNO ID: [id number] Author: Tien Garza MD Service: ? Author Type: Physician Type: Anesthesia Postprocedure Evaluation Filed: 04/07/2021 1:40 PM Note Text: POST ANESTHESIA EVALUATION NOTE : 1965 Procedure Summary Date: 04/07/21 Room / Location: AV ENDO 02 / AV ENDO Anesthesia Start: 1318 Anesthesia Stop: 133 Procedure: EGD (N/A Throat) Diagnosis: Left upper quadrant pain Surgeons: Jason Neumann DO Responsible Provider: Tien Garza MD Anesthesia Type: MAC ASA Status: 2 Anesthesia Type: MAC Last vitals Vitals Value Taken Time BP 124/96 08/26/21 1332 Temp 36.1 ?C (96.9 ?F) 04/07/21 1332 Pulse 62 04/07/21 1340 Resp 23 04/07/21 1340 SpO2 95 % 04/07/21 1340 Vitals shown include unvalidated device data. Post Anesthesia Patient Status Patient Evaluation: PACU. PACU/ICU Patient Condition: stable. Anticipated Disposition: phase 2 then home. Neurological Status: aware and responsive. Pulmonary Status: breathing comfortably on room air Airway Control: returned to baseline unsupported. Cardiovascular Status: stable. Pain Management: clinically adequate - multimodal analgesia pain management approach Postoperative Hydration: acceptable. Intraoperative Events: no significant anesthesia events Recommendation: continue current plan of care. No complications documented. SIGNATURE: Tien Garza MD PATIENT NAME: Joy Hawthorne DATE: April 07, 2021 TIME: 1:40 PM CSN: [id number] [facility] ANES PRE-OPon 04-07-2021 ANES PRE-OP HNO ID: [id number] Author: Tien Garza MD Service: ? Author Type: Physician Type: Anesthesia Preprocedure Evaluation Filed: 04/07/2021 12:42 PM Note Text: ANESTHESIOLOGY DAY OF SURGERY NOTE : 1965 Procedure(s) (LRB): EGD (N/A) Surgeon(s): Jason Neumann DO Estimated body mass index is 35.96 kg/m? as calculated from the following: Height as of 04/04/21: 160 cm (5' 3 ). Weight as of 04/06/21: 92.1 kg (203 lb). Most recent hematocrit and potassium results: Hematocrit 43.1 04/04/2021 Potassium 4.0 04/04/2021 Relevant Problems CARDIO (+) Atherosclerotic coronary vascular disease (+) HTN (hypertension) (+) Presence of drug coated stent in right coronary artery ENDO (+) Diabetes mellitus type 2, controlled, without complications (HCC) GI (+) Gastroesophageal reflux disease without esophagitis NEURO-PSYCH (+) History of asthma Other (+) Idiopathic chronic gout of right foot without tophus I - PHYSICAL EVALUATION AIRWAY Patient intubated: No. Mallampati: II. TM distance: >3 FB. Neck ROM: full ROM without neurological symptoms. Mouth opening: adequate. Short neck: no. Thick neck: no DENTAL Normal dental observations. Dental findings: teeth intact. Additional exam findings: no II - ANESTHESIA PLAN ASA Score: 2 Anesthetic Plan: MAC NPO Status: adequate Monitoring plan: Standard ASA. Postoperative analgesic plan: parenteral or oral opioids and multimodal analgesia. Anesthetic Risks, Benefits, Alternatives, Personnel Discussed. Consent obtained from: patient.Patient / Surrogate agrees to blood products: blood products not planned DNR status not reviewed with patient and/or family prior to surgery. Significant changes in the patient condition since the History and Physical, not otherwise documented in primary service progress note: no. Potential Anesthesia issues that may suggest increased risk of complications or contraindication to planned procedure: none. No vitals data found for the desired time range. No current facility-administered medications on file as of 04/07/2021. Outpatient Medications as of 04/07/2021 Medication Sig - oxyCODONE-acetaminophen (PERCOCET) 5-325 mg tablet Take 1 tablet by mouth every 6 hours as needed for pain for up to 3 days. - metFORMIN ER (GLUCOPHAGE XR) 500 mg 24 hr tablet Take 1 tablet by mouth twice daily with meals. - sucralfate (CARAFATE) 1 gram tablet Take 1 g by mouth four times daily. - rosuvastatin (CRESTOR) 40 mg tablet TAKE 1 TABLET DAILY AT BEDTIME - losartan (COZAAR) 25 mg tablet TAKE 1 TABLET DAILY - MITIGARE 0.6 mg capsule TAKE 1 CAPSULE TWICE A DAY (TAKE 1 CAPSULE ONCE DAILY AND IF NEEDED CAN INCREASE TO TWICE A DAY INSTRUCTED) - sertraline (ZOLOFT) 100 mg tablet TAKE 1 TABLET DAILY - nebivolol (BYSTOLIC) 10 mg tablet TAKE 2 TABLETS (20 MG) IN THE MORNING AND 1 TABLET (10 MG) IN THE EVENING - nitroglycerin sublingual (NITROQUICK) 0.4 mg SL tablet Dissolve 1 tablet under the tongue as needed for Chest Pain. - aspirin, enteric coated (ECOTRIN LOW STRENGTH) 81 mg EC tablet Take 1 tablet by mouth once daily. - pantoprazole DR (PROTONIX) 40 mg tablet TAKE 1 TABLET DAILY I have interviewed and examined the patient. I have reviewed the medical record and/or the pre-anesthesia evaluation, pertinent labs, and test results. This contains updated information obtained within 48 hours of Surgery/Procedure. SIGNATURE: Tien Garza MD PATIENT NAME: Joy Hawthorne DATE: April 07, 2021 TIME: 12:42 PM CSN: [id number] [facility] HISTORY PHYSICALon 1 HISTORY PHYSICAL HNO ID: [id number] Author: Jason Neumann DO Service: Gastroenterology Author Type: Physician Type: HANDP Filed: 04/07/2021 12:36 PM Note Text: HISTORY AND PHYSICAL Joy Hawthorne, 56 year old female Current history and physical on file: No Is a new History and Physical required for today's visit? Yes Indication for procedure: Abdominal pain PROCEDURE(S) SCHEDULED FOR: EGD (Esophagogastroduodenoscopy ) with or without biopsies, removal of polyps or lesions, dilation ( any means), treatment of bleeding ( any means), Barrx treatment of Gallito's Esophagus, image tube placement or cryo therapy treatment based on clinical findings. BASELINE BEHAVIOR: Calm BASELINE ORIENTATION: A AND O x3 All medications and allergies reviewed: Yes Skin Assessment: Warm dry mucus membranes pink Airway/Respiratory Assessment: Airway: visualization of the uvula- Yes Mouth: opening greater than 2 fingerbreadths- Yes Neck: full range of motion- Yes Breath sounds clear/equal- Yes Cardiac Assessment: Regular rate and rhythm without murmur Abdominal Assessment: Abdomen soft, non-tender, no masses or organomegaly. Sedation Plan: MAC Additional Comments: None Jason Neumann DO Normal [facility] SURGICAL PATHOLOGYon 021 SURGICAL PATHOLOGY ADDENDUM PRESENT Specimen originated from [facility] Specimen #: [id number] Submitting Physician: JASON NEUMANN D.O. FINAL DIAGNOSIS 1. Small bowel, biopsy (A) - Small bowel mucosa with no pathologic diagnostic abnormality; negative for Celiac disease, granulomas and dysplasia. 2. Stomach, biopsy (B) - Chronic active gastritis; see comment. 04/08/2021 COMMENT 2. Immunohistochemical staining for Helicobacter pylori organisms is pending; the result will be reported as an addendum. Chantel Silverio M.D. (Electronic Signature) SPECIMEN SUBMITTED A: SMALL BOWEL, BIOPSY B: GASTRIC, BIOPSY ADDENDUM Date Ordered: 04/11/2021 Date Reported: 04/11/2021 Given the background of chronic gastritis, a Helicobacter pylori immunostain is performed on block B and is negative for Helicobacter pylori organisms. 04/11/2021 Laboratory Developed Test (LDT) Disclaimer: Positive and negative controls stain appropriately. Performance characteristics of immunohistochemical, immunofluorescent and chromogenic in-situ hybridization tests have been determined by [facility] [place] [facility] in a manner consistent with CLIA requirements. One or more of these tests have not been cleared or approved by the FDA. [facility] is regulated under CLIA as qualified to perform high-complexity testing. These tests are used for clinical purposes. They should not be regarded as investigational or for research. Addendum Comment Although the histology is somewhat suggestive of Helicobacter pylori, the immuno histochemical stain shows no evidence of Helicobacter pylori organisms. This can sometimes be explained on the basis of prior antibiotic exposure or migration of organisms in the seting of proton pump inhibitors. Addendum Pathologist: Chantel Silverio M.D. Electronic Signature CLINICAL DATA LEFT UPPER QUADRANT PAIN, LMP: XXXX A: R/O CELIAC B: R/O H.PYLORI GROSS DESCRIPTION A. Received in formalin are two pieces of guevara, soft tissue aggregating to 0.6 x 0.2 x 0.2 cm. Totally submitted in one cassette. B. Received in formalin are multiple pieces of guevara, soft tissue aggregating to 1.0 x 0.5 x 0.2 cm. Totally submitted in one cassette. Gross examination performed at [facility], [address] [place] [address] JJA 04/07/2021 8:14:11 PM Date of Report: 04/08/2021 Date of Procedure: 04/07/2021 Date of Receipt: 04/07/2021 Submitted by: JASON NEUMANN D.O. Location: [facility] Diagnostic interpretation performed at [facility], [address] [place] [address]. CLIA Number: [id number] Normal [facility] Reference Lab Comment on above: Performed By: #### S #### See report for performing lab information. CBC and Differentialon 04-04 Abs Baso 0.09 k/uL Normal <0.11 [facility] Abs [place] 0.52 k/uL Normal <0.87 [facility] Abs Neut 4.22 k/uL Normal 1.45-7.50 [facility] Absolute nRBC <0.01 Normal <0.01 [facility] Basophils/100 WBC (Bld) 1.2 % Normal [facility] DTYPE Auto Diff Normal [facility] Eosinophils (Bld) [#/Vol] 0.35 10*3/uL Normal <0.46 [facility] Eosinophils/100 WBC (Bld) 4.7 % Normal [facility] Erythrocyte distribution width (RBC) [Ratio] 12.8 % Normal 11.5-15.0 [facility] Hematocrit (Bld) [Volume fraction] 43.1 % Normal 36.0-46.0 [facility] Hemoglobin (Bld) [Mass/Vol] 14.3 g/dL Normal 11.5-15.5 [facility] Lymphocytes (Bld) [#/Vol] 2.20 10*3/uL Normal 1.00-4.00 [facility] Lymphocytes/100 WBC (Bld) 29.7 % Normal [facility] MCH 30.7 pG Normal 26.0-34.0 [facility] MCHC (RBC) [Mass/Vol] 33.2 g/dL Normal 30.5-36.0 [facility] MCV (RBC) [Entitic vol] 92.5 fL Normal 80.0-100.0 [facility] Monocytes/100 WBC (Bld) 7.0 % Normal [facility] Neutrophils/100 WBC (Bld) 57.4 % Normal [facility] NRBCs 0.0 /100 WBC Normal 0 [facility] Platelet mean volume (Bld) [Entitic vol] 10.4 fL Normal 9.0-12.7 [facility] Platelets (Bld) [#/Vol] 227 10*3/uL Normal 150-400 [facility] RBC (Bld) [#/Vol] 4.66 10*6/uL Normal 3.90-5.20 [facility] WBC (Bld) [#/Vol] 7.40 10*3/uL Normal 3.70-11.[address] [facility] [address] ABD/PEL W IVCONon 04-04- 021 CT ABD/PEL W IVCON * * *Final Report* * * DATE OF EXAM: Apr 04 2021 5:44PM [facility] 0530 - CT ABD/PEL W IVCON / PROCEDURE REASON: Abd pain, diverticulitis suspected * * * * Physician Interpretation * * * * EXAMINATION: CT ABDOMEN AND PELVIS WITH IV CONTRAST CLINICAL HISTORY: Abd pain, diverticulitis suspected LUQ pain radiating to back TECHNIQUE: CT of the abdomen and pelvis was performed using standard technique, scanning from just above the dome of the diaphragm to the symphysis pubis. MQ: CTAP_3 Contrast: IV: 150 ml of Omnipaque 300 : ml of CT Radiation dose: Integrated Dose-length product (DLP) for this visit = 780 mGy*cm. CT Dose Reduction Employed: Automated exposure control(AEC) and iterative recon COMPARISON: None. RESULT: Liver: No mass. Biliary: No bile duct dilation. Gallbladder is absent. Spleen: No mass. No splenomegaly. Pancreas: No mass or duct dilation. Adrenals: No mass. Kidneys: No mass, calculus or hydronephrosis. GI tract: No dilation or wall thickening. Anastomotic sutures are seen in the sigmoid colon likely related to prior partial resection. There is no evidence of appendicitis. Lymph nodes: No abdominal or pelvic lymphadenopathy. Mesentery/Peritoneum: No ascites or mass. Retroperitoneum: No mass. Vasculature: The celiac axis and SMA are patent. The portal vein and branches, splenic vein, SMV, and hepatic veins are patent. No abdominal aortic or iliac artery aneurysm. Pelvis: No mass, ascites or fluid collection. Bones/Soft Tissues: No significant finding. Lower thorax: Unremarkable. Swage Toolsetter (topogram) images: Unremarkable. IMPRESSION: No evidence of an acute intra-abdominal or pelvic process. 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: [employer] Transcribe Date/Time: Apr 04 2021 6:10P Dictated by : AMPARO MUNGUIA MD This examination was interpreted and the report reviewed and electronically signed by: AMPARO MUNGUIA MD on Apr 04 2021 6:15PM EST [id number] Normal [facility] Comp Metabolic Panelon 04-04 Albumin [Mass/Vol] 4.5 g/dL Normal 3.9-4.9 [facility] ALP [Catalytic activity/Vol] 133 U/L High 34-123 [facility] ALT [Catalytic activity/Vol] 54 U/L High 7-38 [facility] Anion gap [Moles/Vol] 11 mmol/L Normal 9-18 [facility] AST [Catalytic activity/Vol] 40 U/L High 13-35 [facility] Bilirubin [Mass/Vol] 0.5 mg/dL Normal 0.2-1.3 [facility] Calcium [Mass/Vol] 9.4 mg/dL Normal 8.5-10.2 [facility] Chloride [Moles/Vol] 105 mmol/L Normal 97-105 [facility] CO2 [Moles/Vol] 26 mmol/L Normal 22-30 [facility] Creatinine [Mass/Vol] 0.70 mg/dL Normal 0.58-0.96 [facility] eGFR- Amer. >60 Normal [facility] eGFR-All Other Races >60 Normal [facility] Comment on above: Result Comment: eGFR (Estimated GFR) Units of measure: mL/min/1.73 meters squared eGFR is derived from the reexpressed MDRD Study equation using the following parameters: serum creatinine, age, gender and race. The creatinine assay has been calibrated to be traceable to IDMS. An eGFR <60 mL/min/1.73m2 for >3 months is consistent with chronic kidney disease. Refer to KDOQI guidelines for clinical interpretation. In patients with unstable renal function, e.g. those with acute kidney injury, the eGFR may not accurately reflect actual GFR. Glucose [Mass/Vol] 111 mg/dL High 74-99 [facility] Comment on above: Result Comment: The [place] Diabetes Association (ADA) provides guidance for cutoff values for fasting glucose and random glucose. The ADA defines fasting as no caloric intake for at least 8 hours. Fasting plasma glucose results between 100 to 125 mg/dL indicate increased risk for diabetes (prediabetes). Fasting plasma glucose results greater than or equal to 126 mg/dL meet the criteria for diagnosis of diabetes. In the absence of unequivocal hyperglycemia, results should be confirmed by repeat testing. In a patient with classic symptoms of hyperglycemia or hyperglycemic crisis, random plasma glucose results greater than or equal to 200 mg/dL meet the criteria for diagnosis of diabetes. Reference: Standards of Medical Care in Diabetes 2016, [place] [employer] Association. Diabetes Care. 2016.39(Suppl 1). Potassium [Moles/Vol] 4.0 mmol/L Normal 3.7-5.1 [facility] Protein [Mass/Vol] 7.7 g/dL Normal 6.3-8.0 [facility] Sodium [Moles/Vol] 142 mmol/L Normal 136-144 [facility] Urea nitrogen [Mass/Vol] 13 mg/dL Normal 7-21 [facility] ED NOTEon 04-04-2021 ED NOTE HNO ID: [id number] Author: Jason Dickey RN Service: ? Author Type: Registered Nurse Type: ED Notes Filed: 04/04/2021 8:22 PM Note Text: Discharge instructions reviewed with pt. Pt verbalizes understanding of instructions, medications, follow up care and reasons to return to the emergency department. Pt verbalizes understanding by teach back method and all questions/ concerns answered to the best of my ability. Pt discharged in stable condition. [facility] ED NOTE HNO ID: [id number] Author: True Tee III, Medic Service: ? 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 [facility] ED NOTE HNO ID: [id number] Author: Maren Beal RN Service: Nursing Author Type: Registered Nurse Type: ED Notes Filed: 04/04/2021 2:07 PM Note Text: Pt to ED for abd pain. States she had ulcer surgery a few months ago. +n/-v Normal [facility] ED Triage Noteon 04-04-2021 ED Triage Note HNO ID: [id number] Author: Gabriela Christensen I, PA-C Service: Emergency Medicine Author Type: Physician Steam Trap Man Type: ED Triage Notes Filed: 04/04/2021 2:10 PM Note Text: ED INTAKE NOTE Patient Name: Joy Hawthorne Service Date: 04/04/21 BRIEF HPI: 56 y/o F with hx of hernia repair December 2020, gastric ulcer presents with worsening abdominal pain, LUQ radiating to back. Ongoing for several months, worse today. Has not been able to get into GI. On carafate x 30 days, no relief. On bentyl no relief. CT scan unrenarkable except for soft tissue stranding in the LUQ from 02/2021 BRIEF EXAM: Awake and Alert PIPER abd soft, ttp LUQ and epigastric region INTAKE WORKUP: Bloodwork: CBC CMP lipase Urinalysis SIGNATURE: Gabriela Christensen PA-C Normal [facility] Lipaseon 04-04-2021 Lipase [Catalytic activity/Vol] 17 U/L Normal 16-61 [facility] US ABD RIGHT UPPER QUADRANTo n 04-04-2021 US ABD RIGHT UPPER QUADRANT * * *Final Report* * * DATE OF EXAM: Apr 04 2021 7:23PM U 1032 - US ABD RIGHT UPPER QUADRANT / PROCEDURE REASON: Epigastric pain * * * * Physician Interpretation * * * * EXAMINATION: RIGHT UPPER QUADRANT AND SPLEEN ULTRASOUND CLINICAL HISTORY: Right upper quadrant pain TECHNIQUE: Sonography of the right upper quadrant was performed. Images were obtained and stored in a permanent archive. MQ: URUQ_2 COMPARISON: None. RESULT: Pancreas: Normal sonographic appearance. Portions obscured: tail Liver: Echotexture: Coarse Echogenicity: Increased Surface contour: Smooth Lesions: None. Biliary: No intrahepatic biliary duct dilation. CBD: 0.5 cm at the hilum. Gallbladder: Status post cholecystectomy. Right and left Kidney: No hydronephrosis. Ascites: None. Spleen: The craniocaudal length of the spleen is 9.4 cm, normal. There are no splenic lesions. IMPRESSION: 1. Hepatic steatosis. 2. No biliary dilatation in this patient status post cholecystectomy. 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: [facility] Transcribe Date/Time: Apr 04 2021 7:46P Dictated by : INEZ RAHMAN MD This examination was interpreted and the report reviewed and electronically signed by: INEZ RAHMAN MD on Apr 04 2021 7:48PM EST [id number] Normal [facility] US ABD SPLEEN -NBon 04-04-20 21 US ABD SPLEEN -NB * * *Final Report* * * DATE OF EXAM: Apr 04 2021 7:23PM [facility] 1232 - US ABD SPLEEN -NB / PROCEDURE REASON: Epigastric pain * * * * Physician Interpretation * * * * EXAMINATION: RIGHT UPPER QUADRANT AND SPLEEN ULTRASOUND CLINICAL HISTORY: Right upper quadrant pain TECHNIQUE: Sonography of the right upper quadrant was performed. Images were obtained and stored in a permanent archive. MQ: URUQ_2 COMPARISON: None. RESULT: Pancreas: Normal sonographic appearance. Portions obscured: tail Liver: Echotexture: Coarse Echogenicity: Increased Surface contour: Smooth Lesions: None. Biliary: No intrahepatic biliary duct dilation. CBD: 0.5 cm at the hilum. Gallbladder: Status post cholecystectomy. Right and left Kidney: No hydronephrosis. Ascites: None. Spleen: The craniocaudal length of the spleen is 9.4 cm, normal. There are no splenic lesions. IMPRESSION: 1. Hepatic steatosis. 2. No biliary dilatation in this patient status post cholecystectomy. 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: [facility] Transcribe Date/Time: Apr 04 2021 7:46P Dictated by : INEZ RAHMAN MD This examination was interpreted and the report reviewed and electronically signed by: INEZ RAHMAN MD on Apr 04 2021 7:48PM EST [id number] Normal [facility] Urinalysis with Microscopico n 04-04-2021 Bilirubin, Urine Negative Normal Negative [facility] Cast SEE COMMENT Normal 0 [facility] Comment on above: Result Comment: 0 Clarity (U) Clear Normal Clear [facility] Color (U) Yellow Normal Yellow [facility] Glucose Ql (U) Negative Normal Negative [facility] Hemoglobin/Blood,Ur Negative Normal Negative [facility] Ketones Ql (U) Negative Normal Negative [facility] Leukest Negative Normal Negative [facility] Nitrite Ql (U) Negative Normal Negative [facility] pH (U) 6.5 [pH] Normal 5.0-8.0 [facility] Protein, Urine Negative Normal Negative [facility] RBC 0-3 Normal 0-3 [facility] Specific [place], Ur 1.020 Normal 1.005-1 .03 0 [facility] Urobilinogen Qn (U) 1.0 {Mykel'U}/dL Normal 0.2-1.0 [facility] WBC 0-5 Normal 0-5 [facility] BLOOD CULTURE, BACTERIALon 0 03-07-2021 BLOOD CULTURE, BACTERIAL PATIENT: JOY HAWTHORNE LOCATION: [facility] P[facility]IRA#: [id number] : 63 AGE: SEX: F ORDERED BY: JANE BAUM SOURCE: Blood COLLECTED: 03/07/21 13:51 ANTIBIOTICS AT MARCELA.: RECEIVED : 03/07/21 22:13 SITE: ANTECUBITAL R E S U L T S BLOOD CULTURE, BACTERIAL FINAL 03/12/21 23:42 No Growth at 1 days No Growth at 2 days No Growth at 3 days No Growth at 4 days NO GROWTH - FINAL REPORT Normal [facility] Comment on above: Performed By: #### M G #### [address] [id number] BLOOD CULTURE, BACTERIAL PATIENT: JOY HAWTHORNE LOCATION: [facility]#: [id number] : 63 AGE: SEX: F ORDERED BY: JANE BAUM SOURCE: Blood COLLECTED: 03/07/21 10:35 ANTIBIOTICS AT MARCELA.: RECEIVED : 03/07/21 22:11 SITE: R E S U L T S BLOOD CULTURE, BACTERIAL FINAL 03/12/21 23:42 No Growth at 1 days No Growth at 2 days No Growth at 3 days No Growth at 4 days NO GROWTH - FINAL REPORT Normal [facility] Comment on above: Performed By: #### M G #### [address] [id number] CBC AND DIFFERENTIALon 03-07 % AUTOMATED IMMATURE GRAN 0.2 % Normal 0.0 - 0.9 [facility] Comment on above: Result Comment: [place] ture Granulocyte Count (IG) includes promyelocytes, myelocytes and metamyelocytes but does not include bands. Percent differential counts (%) should be interpreted in the context of the absolute cell counts (cells/L). Performed By: #### C BCDF #### [address] [id number] Basophils (Bld) [#/Vol] 0.07 10*3/uL Normal 0.00 - 0.10 [facility] Comment on above: Performed By: #### C BCDF #### [address] [id number] Basophils/100 WBC (Bld) 1.1 % Normal 0.0 - 2.0 [facility] Comment on above: Performed By: #### C BCDF #### [address] [id number] Eosinophils (Bld) [#/Vol] 0.29 10*3/uL Normal 0.00 - 0.70 [facility] Comment on above: Performed By: #### C BCDF #### [address] [id number] Eosinophils/100 WBC (Bld) 4.5 % Normal 0.0 - 6.0 [facility] Comment on above: Performed By: #### C BCDF #### [address] [id number] Erythrocyte distribution width (RBC) [Ratio] 13.1 % Normal 11.5 - 14.5 [facility] Comment on above: Performed By: #### C BCDF #### [address] [id number] Hematocrit (Bld) [Volume fraction] 43.1 % Normal 36.0 - 46.0 [facility] Comment on above: Performed By: #### C BCDF #### [address] [id number] Hemoglobin (Bld) [Mass/Vol] 14.1 g/dL Normal 12.0 - 16.0 [facility] Comment on above: Performed By: #### C BCDF #### [address] [id number] Lymphocytes (Bld) [#/Vol] 1.75 10*3/uL Normal 1.20 - 4.80 [facility] Comment on above: Performed By: #### C BCDF #### [address] [id number] Lymphocytes/100 WBC (Bld) 26.9 % Normal 13.0 - 44.0 [facility] Comment on above: Performed By: #### C BCDF #### [address] [id number] MCHC (RBC) [Mass/Vol] 32.7 g/dL Normal 32.0 - 36.0 [facility] Comment on above: Performed By: #### C BCDF #### [address] [id number] MCV (RBC) [Entitic vol] 93 fL Normal 80 - 100 [facility] Comment on above: Performed By: #### C BCDF #### [address] [id number] Monocytes (Bld) [#/Vol] 0.48 10*3/uL Normal 0.10 - 1.00 [facility] Comment on above: Performed By: #### C BCDF #### [address] [id number] Monocytes/100 WBC (Bld) 7.4 % Normal 2.0 - 10.0 [facility] Comment on above: Performed By: #### C BCDF #### [address] [id number] Neutrophils (Bld) [#/Vol] 3.91 10*3/uL Normal 1.20 - 7.70 [facility] Comment on above: Performed By: #### C BCDF #### [address] [id number] Neutrophils/100 WBC (Bld) 59.9 % Normal 40.0 - 80.0 [facility] Comment on above: Performed By: #### C BCDF #### [address] [id number] Platelets (Bld) [#/Vol] 237 10*3/uL Normal 150 - 450 [facility] Comment on above: Performed By: #### C BCDF #### [address] [id number] RBC 4.64 x10E12/L Normal 4.00 - 5.20 [facility] Comment on above: Performed By: #### C BCDF #### [address] [id number] WBC (Bld) [#/Vol] 6.5 10*3/uL Normal 4.4 - 11.3 [facility] Comment on above: Performed By: #### C BCDF #### [address] [id number] COMPREHENSIVE PANELon 2020 Albumin [Mass/Vol] 4.2 g/dL Normal 3.4 - 5.0 [facility] Comment on above: Performed By: #### B MP #### [address] [id number] ALP [Catalytic activity/Vol] 133 U/L High 33 - 110 [facility] Comment on above: Performed By: #### B MP #### [address] [id number] ALT [Catalytic activity/Vol] 43 U/L Normal 7 - 45 [facility] Comment on above: Result Comment: Anabel ents treated with Sulfasalazine may generate falsely decreased results for ALT. Performed By: #### B MP #### [address] [id number] Anion gap [Moles/Vol] 13 mmol/L Normal 10 - 20 [facility] Comment on above: Performed By: #### B MP #### [address] [id number] AST [Catalytic activity/Vol] 28 U/L Normal 9 - 39 [facility] Comment on above: Performed By: #### B MP #### [address] [id number] Bilirubin [Mass/Vol] 0.5 mg/dL Normal 0.0 - 1.2 [facility] Comment on above: Performed By: #### B MP #### [address] [id number] Calcium [Mass/Vol] 9.3 mg/dL Normal 8.6 - 10.3 [facility] Comment on above: Performed By: #### B MP #### [address] [id number] Chloride [Moles/Vol] 105 mmol/L Normal 98 - 107 [facility] Comment on above: Performed By: #### B MP #### [address] [id number] Creatinine [Mass/Vol] 0.86 mg/dL Normal 0.50 - 1.05 [facility] Comment on above: Performed By: #### B MP #### [address] [id number] GFR- AM. >60 Normal >60 [facility] Comment on above: Result Comment: CALC ULATIONS OF ESTIMATED GFR ARE PERFORMED USING THE MDRD STUDY EQUATION FOR THE IDMS-TRACEABLE CREATININE METHODS. CLIN CHEM 2007;53:766-72 Performed By: #### B MP #### [address] [id number] GFR-NON AM. >60 Normal >60 [facility] Comment on above: Performed By: #### B MP #### [address] [id number] Glucose [Mass/Vol] 110 mg/dL High 74 - 99 [facility] Comment on above: Performed By: #### B MP #### [address] [id number] HCO3 (Bld) [Moles/Vol] 27 mmol/L Normal 21 - 32 [facility] Comment on above: Performed By: #### B MP #### [address] [id number] Potassium [Moles/Vol] 4.1 mmol/L Normal 3.5 - 5.3 [facility] Comment on above: Performed By: #### B MP #### [address] [id number] Protein [Mass/Vol] 7.2 g/dL Normal 6.4 - 8.2 [facility] Comment on above: Performed By: #### B MP #### [address] [id number] Sodium [Moles/Vol] 141 mmol/L Normal 136 - 145 [facility] Comment on above: Performed By: #### B MP #### [address] [id number] Urea nitrogen [Mass/Vol] 12 mg/dL Normal 6 - 23 [facility] Comment on above: Performed By: #### B MP #### [id number] ABDOMEN AND PELVIS W IV C ONTRASTon 03-07-2021 CT ABDOMEN AND PELVIS W IV CONTRAST Patient Name: JOY HAWTHORNE STUDY: CT ABDOMEN AND PELVIS W IV CONTRAST; 03/07/2021 1:54 pm INDICATION: abd pain. COMPARISON: 02/22/2021. ACCESSION NUMBER(S): [id number] ORDERING CLINICIAN: JANE BAUM TECHNIQUE: Contiguous axial images were obtained through the abdomen and pelvis after the administration of 90 mL Omnipaque 350 intravenous contrast. Positive oral contrast was administered. Coronal and sagittal reformations were made. FINDINGS: LOWER CHEST: Left lower lobe basilar mild atelectasis/scarring is present. ABDOMEN: LIVER: Diffuse fatty infiltration of the liver is noted. BILE DUCTS: Mild intrahepatic and extrahepatic biliary prominence is similar to prior may be chronic related to cholecystectomy. GALLBLADDER: Gallbladder is surgically absent. PANCREAS: Insinuating fat throughout the pancreas is similar to prior. No discrete pancreatic lesion or peripancreatic inflammation is seen. SPLEEN: The spleen does not appear enlarged. No discrete splenic lesion. ADRENAL GLANDS: Right adrenal apex 1.1 cm macroscopic fat containing nodule is unchanged compatible with a myelolipoma. Left adrenal is unremarkable. KIDNEYS AND URETERS: The kidneys enhance symmetrically without focal lesion. No hydroureteronephrosis bilaterally. Urinary bladder is fully decompressed. VESSELS: Mild irregular atherosclerotic calcifications are again seen within the infrarenal aorta. No aortic aneurysm. IVC is unremarkable. BOWEL: Mild soft tissue fullness of the proximal stomach is again seen in may be related to the hiatal hernia repair procedure. There is no bowel obstruction with enteric contrast reaching the distal transverse colon. Normal contrast opacified appendix is visualized. Few scattered small colonic diverticula are present without acute diverticulitis. Rectosigmoid level suture line is again seen. PERITONEUM/RETROPERITONEUM/ LYMPH NODES: No ascites or free air, no fluid collection. There has been a hysterectomy. No retroperitoneal fluid collection or lymphadenopathy. ABDOMINAL WALL: Mild focal irregular soft tissue thickening/fat stranding in the left upper quadrant subcutaneous tissues is again seen as well as adjacent mild skin thickening possibly representing scar. No subcutaneous tissue fluid collection is present. BONE AND SOFT TISSUE: Mild multilevel disc space narrowing and predominantly anterior endplate spurring is again seen throughout the visualized spine. Facet arthrosis is greatest in the mid-lower lumbar spine. Mild lumbar levocurvature may be partially exaggerated by positioning. IMPRESSION: Stable mild soft tissue fullness of the proximal stomach which may be related to previous hiatal hernia repair procedure. Small localized region of mild soft tissue thickening/fat stranding of the left upper quadrant subcutaneous tissues with adjacent mild skin thickening similar to prior could represent scar tissue. No subcutaneous tissue fluid collection. Normal appendix. No bowel obstruction. Mild colonic diverticulosis without acute diverticulitis. Stable mild intrahepatic and extrahepatic biliary prominence may be chronic related to the cholecystectomy. Fatty infiltration of the liver. Electronically signed by: MARV VILLAREAL MD Normal [facility] CT Abdomen and Pelvis with I V Contraston 03-07-2021 CT Abdomen and Pelvis W contrast IV Normal [facility] 201 DO Work Phone: Complete Blood Count + Diffe rentialon 03-07-2021 Basophils/100 WBC (Bld) 1.1 % 0.0 - 2.0 [facility] 201 DO Work Phone: Erythrocyte distribution width (RBC) [Ratio] 13.1 % See Below [facility] 201 DO Work Phone: Comment on above: Reference Range: 11. 5 - 14.5 Hematocrit (Bld) [Volume fraction] 43.1 % See Below [facility] 201 DO Work Phone: Comment on above: Reference Range: 36. 0 - 46.0 Hemoglobin (Bld) [Mass/Vol] 14.1 g/dL See Below [facility] 201 DO Work Phone: Comment on above: Reference Range: 12. 0 - 16.0 Lymphocytes/100 WBC (Bld) 26.9 % See Below [facility] 201 DO Work Phone: Comment on above: Reference Range: 13. 0 - 44.0 MCHC (RBC) [Mass/Vol] 32.7 g/dL See Below [facility] 201 DO Work Phone: Comment on above: Reference Range: 32. 0 - 36.0 MCV (RBC) [Entitic vol] 93 fL 80 - 100 [facility] 201 DO Work Phone: Monocytes/100 WBC (Bld) 7.4 % 2.0 - 10.0 [facility] 201 DO Work Phone: Neutrophils/100 WBC (Bld) 59.9 % See Below [facility] 201 DO Work Phone: Comment on above: Reference Range: 40. 0 - 80.0 Platelets (Bld) [#/Vol] 237 10*3/uL 150 - 450 [facility] 201 DO Work Phone: RBC (Bld) [#/Vol] 4.64 {x10E12/L} See Below [facility] 201 DO Work Phone: Comment on above: Reference Range: 4.0 0 - 5.20 WBC (Bld) [#/Vol] 6.5 10*3/uL 4.4 - 11.3 [facility] 201 DO Work Phone: Complete Blood Count + Differential 0.07 {x10E9/L} See Below [facility] 201 DO Work Phone: Comment on above: Reference Range: 0.0 0 - 0.10 Complete Blood Count + Differential 0.29 {x10E9/L} See Below [facility] 201 DO Work Phone: Comment on above: Reference Range: 0.0 0 - 0.70 Complete Blood Count + Differential 0.48 {x10E9/L} See Below [facility] 201 DO Work Phone: Comment on above: Reference Range: 0.1 0 - 1.00 Complete Blood Count + Differential 1.75 {x10E9/L} See Below [facility] 201 DO Work Phone: Comment on above: Reference Range: 1.2 0 - 4.80 Complete Blood Count + Differential 3.91 {x10E9/L} See Below [facility] 201 DO Work Phone: Comment on above: Reference Range: 1.2 0 - 7.70 Complete Blood Count + Differential 4.5 % 0.0 - 6.0 [facility] 201 DO Work Phone: Complete Blood Count + Differential 0.2 % 0.0 - 0.9 [facility] 201 DO Work Phone: Comment on above: Immature Granulocyte Count (IG) includes promyelocytes, myelocytes and metamyelocytes but does not include bands. Percent differential counts (%) should be interpreted in the context of the absolute cell counts (cells/L). Cult, Bloodon 03-07-2021 Bacteria identified Cx Nom (Bld) [facility] DO Work Phone: Bacteria identified Cx Nom (Bld) [facility] DO Work Phone: Follow Up (General Surgery)o n 03-07-2021 Follow Up (General Surgery) Diagnoses/Problems Elevated LFTs (790.6) (R79.89) Left upper quadrant abdominal pain (789.02) (R10.12) H/O hiatal hernia (V12.79) (Z87.19) Orders Elevated LFTs Comprehensive Metabolic Panel; Status:Permanent Deferral - Other,Labs done when admitted to hospital; Perform:Lab Services - Lab To Draw (Blood Test); Due:05Jun2021; Last Updated By:Beatrice Delgadillo; 03/07/2021 12:07:05 PM;Ordered; For:Elevated LFTs; Ordered By:Tino Shaw; Patient Discussion/Summary I will send you to the ER for further workup of your abdominal pain Provider Impressions 56-year-old patient well known to me with history of laparoscopic hiatal hernia repair with Toupet wrap on December 31; since January 25, she has been having persistent pain in the left upper and left mid abdominal region. Multiple workups (labs, CT scans, ultrasound, EGD/colonoscopy) so far unrevealing except for 1 mm gastric ulcer on EGD and pathology showing reactive gastropathy, negative H.pylori and tubular adenoma. She was started on Carafate and Protonix 40 mg BID over 5 days ago. I reviewed the CT abd/pelvis from February 22 with the radiologist again today. No incisional hernia, recurrent hiatal hernia, bowel obstruction, bowel wall thickening and diverticulitis; patent mesentery blood vessels. History of laparoscopic cholecystectomy. Gall bladder ultrasound for elevated LFTS shows no biliary dilation but hepatic steatosis. In fact, repeat LFTs shows slight elevation of alk phos with normal TBIL, ALT, AST; normal amylase and lipase. Denies ETOH and tobacco use. History of cardiac stent. Cardiac workup on March 02 shows EF at 60-65%, normal troponin. The patient is extremely tender in the LUQ/left mid abdominal region and crying in the office. Unclear etiology of her pain. Mesenteric ischemia seems unlikely as on the CT abd/pelvis with IV contrast, the mesenteric vessels are patent with few calcification in the middle aorta. No dysphagia, nausea, vomiting, acid reflux or heartburn making delayed gastric emptying unlikely; there was no retained fluid or food on EGD. I have asked my nurse to take patient to the ER in the wheel chair. I called the ER to let them know and provided further history. She will be evaluated in the ER. If LFTs still elevated, I will obtain MRCP. All questions answered and plans explained to patient. Chief Complaint Patient is here today for a hospital follow up. History of Present [id number] patient who on December 31, 2020 underwent laparoscopic hiatal hernia repair with toupet wrap by me. On January 25 during a follow-up, she reported sharp, tearing type pain in the left upper quadrant and left flank. The pain has persisted. It is there constantly; at baseline, it is 4 out of 10, dull, achy but with meal, it goes up to 10 out of 10 and excruciating. No radiation to back. Denies nausea, vomiting, fevers, chills, heartburn, acid reflux and dysphagia. Multiple work-ups including CT abdomen/pelvis on January 25 and February 22, gallbladder ultrasound for elevated LFTs and labs. She was admitted on March 01 and discharged on 03/03/2021. During her admission, she reported chest pain; troponin negative and ECHO shows EF 60-65% with no acute findings. CT scans showed no acute findings. EGD/colonoscopy on 03/02/2021 showed gastritis, 1 mm gastric ulcer, intact Toupet wrap and 5-6 mm polyp in distal descending colon polyp. Pathology shows tubular adenoma and reactive gastropathy, negative H. pylori. She is here in followup. She is crying and said the pain is excruciating. She took left over norco which helped but Tylenol #3 not helping. Denies nausea, vomiting, fevers and chills. She admits to eating bread yesterday which made the pain worse. Active Problems Acute epigastric pain (789.06,338.19) (R10.13) Anxiety (300.00) (F41.9) Asthma (493.90) (J45.909) Ramirez's esophagus without dysplasia (530.85) (K22.70) CAD (coronary artery disease) (414.00) (I25.10) Duodenitis (535.60) (K29.80) Dysphagia (787.20) (R13.10) Elevated LFTs (790.6) (R79.89) Essential hypertension (401.9) (I10) Gastropathy (537.9) (K31.9) GERD (gastroesophageal reflux disease) (530.81) (K21.9) Gout (274.9) (M10.9) H/O hiatal hernia (V12.79) (Z87.19) Hiatal hernia (553.3) (K44.9) Hyperlipidemia (272.4) (E78.5) Left upper quadrant abdominal pain (789.02) (R10.12) Right flank pain (789.09) (R10.9) Right upper quadrant abdominal pain (789.01) (R10.11) S/P laparoscopic cholecystectomy (V45.89) (Z90.49) Surgical History History of Cholecystectomy laparoscopic History of Coronary artery stent placement History of Esophagogastroduodenoscopy History of Hysterectomy History of Paraesophageal hiatal hernia repair History of Right hemicolectomy Family History Family history of malignant neoplasm of colon (V16.0) (Z80.0) Mother: DX age 53, s/p chemo, colon surgery, living. Maternal grandmother: DX age 60's, s/p colon surgery, chemo and radiation, Family history of malignant neoplasm of colon (V16. (more content not included)... Normal [facility] LACTATEon 03-07-2021 Lactate [Moles/Vol] 1.4 mmol/L Normal 0.4 - 2.0 [facility] Comment on above: Result Comment: Rosina puncture immediately after or during the administration of Metamizole may lead to falsely low results. Testing should be performed immediately prior to Metamizole dosing. Performed By: #### L IPAS #### [facility] [address] [place], [place] [id number] LIPASEon 03-07-2021 Lipase [Catalytic activity/Vol] 10 U/L Normal 9 - 82 [facility] Comment on above: Result Comment: Rosina puncture immediately after or during the administration of Metamizole may lead to falsely low results. Testing should be performed immediately prior to Metamizole dosing. X-ojgpxi-c-benzoquinone imine (metabolite of Acetaminophen) will generate erroneously low results in samples for patients that have taken toxic doses of acetaminophen. Performed By: #### L IPAS #### [facility] [address] [place], [place] [id number] Laboratory - Chemistry and C hemistry - challengeon 03-07-2021 Albumin BCP dye [Mass/Vol] 4.2 g/dL 3.4 - 5.0 [facility] DO Work Phone: ALP [Catalytic activity/Vol] 133 U/L above high threshold 33 - 110 [facility] DO Work Phone: ALT With P-5'-P [Catalytic activity/Vol] 43 U/L 7 - 45 [facility] DO Work Phone: Comment on above: Patients treated wit h Sulfasalazine may generate falsely decreased results for ALT. Anion gap [Moles/Vol] 13 mmol/L 10 - 20 [facility] DO Work Phone: AST With P-5'-P [Catalytic activity/Vol] 28 U/L 9 - 39 [facility] DO Work Phone: Bilirubin [Mass/Vol] 0.5 mg/dL 0.0 - 1.2 [facility] lyria [facility] DO Work Phone: Calcium [Mass/Vol] 9.3 mg/dL 8.6 - 10.3 [facility] DO Work Phone: Chloride [Moles/Vol] 105 mmol/L 98 - 107 -E nelria [facility] 201 DO Work Phone: CO2 [Moles/Vol] 27 mmol/L 21 - 32 [facility] 201 DO Work Phone: Creatinine [Mass/Vol] 0.86 mg/dL See Below [facility] 201 DO Work Phone: Comment on above: Reference Range: 0.5 0 - 1.05 Glucose [Mass/Vol] 110 mg/dL above high threshold 74 - 99 [facility] 201 DO Work Phone: Potassium [Moles/Vol] 4.1 mmol/L 3.5 - 5.3 [facility] 201 DO Work Phone: Protein [Mass/Vol] 7.2 g/dL 6.4 - 8.2 [facility] 201 DO Work Phone: Sodium [Moles/Vol] 141 mmol/L 136 - 145 [facility] 201 DO Work Phone: Urea nitrogen [Mass/Vol] 12 mg/dL 6 - 23 [facility] 201 DO Work Phone: Lactate, Levelon 03-07-2021 Lactate [Moles/Vol] 1.4 mmol/L 0.4 - 2.0 [facility] 201 DO Work Phone: Comment on above: Venipuncture immedia tely after or during the administration of Metamizole may lead to falsely low results. Testing should be performed immediately prior to Metamizole dosing. Lipase, Serumon 03-07-2021 Lipase [Catalytic activity/Vol] 10 U/L 9 - 82 [facility] 201 DO Work Phone: Comment on above: Venipuncture immedia tely after or during the administration of Metamizole may lead to falsely low results. Testing should be performed immediately prior to Metamizole dosing. W-lremml-x-benzoquinone imine (metabolite of Acetaminophen) will generate erroneously low results in samples for patients that have taken toxic doses of acetaminophen. No Panel Informationon 03-07 >60 >60 [facility] 201 DO Work Phone: Comment on above: CALCULATIONS OF GWENDOLYN MATED GFR ARE PERFORMED USING THE MDRD STUDY EQUATION FOR THE IDMS-TRACEABLE CREATININE METHODS. CLIN CHEM 2007;53:766-72 Provider Note - ED v2on 02-11 Provider Note - ED v2 Provider Note - ED v2: Chart Review: ED NOTES ED NOTES: Chief Complaint: Abdominal pain History of Present Illness: This is a 56-year-old female presents with left upper abdominal pain. It has been going on for weeks. The patient was recently diagnosed with a gastric ulcer. She has been taking Tylenol with codeine as well as Carafate. However, she still continues with pain. No nausea or vomiting. Mild diarrhea. No hematemesis, hematochezia or melena. No back or flank pain. No chest pain or shortness of breath. No fever or chills. No dysuria or hematuria. Worse with movement and palpation. No bad food exposures. No sick contacts. No trauma or travel. Review of Systems All systems negative except as noted in HPI or elsewhere in the chart Constitutional: no fever, chills, weakness, dizziness Eyes: no redness, discharge, vision change, pain ENT: no sore throat, nosebleeds, rhinorrhea, hearing loss, ear pain, ear discharge Cardiovascular: no chest pain, leg edema, palpitations Respiratory: no shortness of breath, cough, dyspnea on exertion, pleurisy, hemoptysis GI: no nausea, diarrhea, pain, vomiting, constipation, BRBPR, melena, heartburn : no dysuria, discharge, frequency, flank pain, hematuria, bleeding Musculoskeletal: no myalgia, neck/back pain, redness, arthralgia, inflammation Skin: no rash, bruising, contusions, swelling, lacerations, abrasions Neurological: no headache, numbness, change in function, weakness, AMS, paresthesias, speech change Psychiatric: no AMS, agitation, suicidal, confusion, depression, anxiety Metabolic: no fatigue, polyuria, hair change, dry skin, weakness, polydipsia, temperature intolerance Hematologic: no bleeding, nodes, bruising, petechiae Allergic: no rhinorrhea, sneezing, atopic dermatitis, frequent URIs [facility] Nursing notes reviewed and confirmed by me. Past Medical History: Asthma, hypertension, renal colic, gastric ulcer Past Surgical History: Hysterectomy, cholecystectomy, hiatal hernia repair, cardiac stent LMP: G P Tetanus: UTD Family History: no DM, HTN, CAD, CVA, Cancer Social History: no smoking, alcohol use, substance abuse Allergies and Medications: See nurses notes. Physical Exam Constitutional: Vital signs per nursing notes. Well developed, well nourished. Moderate acute distress. Psychiatric: alert and oriented to person, place, and time; no abnormalities of mood or affect; memory intact Eyes: PERRL; conjunctivae and lids normal; EOMI ENT: otoscopic exam of external canal and TMs normal; nasal mucosa, turbinates, and septum normal; mouth, tongue, and pharynx normal; pharynx without edema, exudate, or injection Neck: neck supple, no meningismus; trachea midline without deviation; no lymphadenopathy; no thyromegaly; carotid pulses even bilaterally Chest: no masses or tenderness, no discharge Respiratory: normal respiratory effort and excursion; no rales, rhonchi, or wheezes; equal air entry Cardiovascular: regular rate and rhythm; no murmurs, rubs or gallops; symmetric pulses; no edema; normal capillary refill; distal pulses present Neurological: normal speech; CN II-XII grossly intact; normal motor and sensory function; no nystagmus; no pronator drift GI: no masses, rebound or guarding; no palpable, pulsatile mass; no organomegaly; no hernia; normal bowel sounds; (-) Lavalette sign; (-) McBurneys sign; (-) CVA tenderness; except tenderness to palpation to the left upper abdomen Lymphatic: no adenopathy of neck Musculoskeletal: normal gait and station; normal digits and nails; no gross tendon or ligament injury; normal to palpation; normal strength/tone; neurovascular status intact; (-) Homans sign Skin: normal to inspection; normal to palpation; no rash GCS: 15 HISTORY OF PRESENTING ILLNESS JOY is a 56 year old Female and was seen by me at 07-Mar-2021 10:26 for a chief complaint of abdominal pain (ABD pain since December when she had a surgery to repair a hernia)(1). Triage Information: Most recent Vital Sign Value Date Temp (F): 97.7 03-07-2021 10:28 Temp (C): 36.5 03-07-2021 10:28 Heart Rate (beats/min): 61 03-07-2021 10:28 Respirations (breaths/min): 18 03-07-2021 10:28 SpO2 (%): 98 03-07-2021 10:28 BP Systolic (mm Hg): 171 03-07-2021 10:28 BP Diastolic (mm Hg): 82 03-07-2021 10:28 PAST MEDICAL HISTORY ATTESTATION: I have reviewed and confirmed nurse's/medic's notes for patient's medications, allergies, and medical, surgical, family and social history ALLERGIES/INTOLERANCES: Allergy Allergen: allopurinol Type: Drug Reaction: Hives/Urticaria Allergen: sulfa drugs Type: Drug Category Reaction: Hives/Urticaria HEALTH HISTORY: Medical History Name:S/P repair of paraesophageal hernia Code:Z98.890 OUTPATIENT MEDICATIONS: Home Medications Review Status for Reconciliation: N/A Med Status: Patient Currently Takes Medications (more content not included)... Normal [facility] Risk Screen - Adult Emergenc yon 03-07-2021 Risk Screen - Adult Emergency Preferred Language: Preferred Language: Preferred Language for Discussing Health Care (patient/designee)Chinese Advanced Directives: Advance Directive/DNRno Family Violence Adult: Abuse Screen: Are you or have you been threatened or abused physically, emotionally, or sexually by anyoneno Learning Assessment (Patient): Learning Assessment (Patient): Patient is Able to be Assessed for Learningyes Factors Influencing Readiness to Learnacuteness of illness Factors that Impact Ability to Learnnone Devices/Methods Used to Communicatenone Learning Preferenceswritten material; verbal instruction Cultural Considerationsnone Developmental Considerationsnone Rastafarian Considerationsnone Learning Assessment (Other Learner): Learning Assessment (Other Learner): Other learner availableno Pressure Injury/TB/Substance: Pressure Injury: Do you have a coughno Smoking Statusnever smoker Admission Risk Screen: Significant IndicatorsComplete CAGE: CAGE: Is this an injured patient at a Trauma Center ([facility]/[place]): no Electronic Signatures: Tasha Gaona (RN) (Signed 07-Mar-2021 11:25) Authored: Preferred Language, Advanced Directives, Family Violence Adult, Learning Assessment (Patient), Learning Assessment (Other Learner), Pressure Injury/TB/Substance, Pressure Injury, CAGE Last Updated: 07-Mar-2021 11:25 by Tasha Gaona (SAMEER) Normal [facility] Triage - EDon 03-07-2021 Triage - ED Quick Triage: Are You no Have You Given In The Last 6 Weeksno Are You Currently Breastfeedingno Chart Review: ARRIVAL INFORMATION Mode of Arrival: private vehicle CHIEF COMPLAINT JOY HAWTHORNE is a Female patient with a chief complaint of abdominal pain (ABD pain since December when she had a surgery to repair a hernia). Triage Date/Time: 07-Mar-2021 10:28 MIRTA: 3V Pain Rating (0-10): 10 = Severe Vital Signs: Temperature: 97.7F ( 36.5C) taken temporal Blood Pressure: 171/82 Mean: Heart Rate: 61 Respiratory Rate: 18 Pulse Oximetry: 98% on room air, no respiratory support. Height: 5 feet 3 inches. 160.0 CM Weight: 207.2 pounds. Calculated 94.0 kg. (stated) Calculated BMI (kg/m2): 36.718 Calculated BSA (m2) 2.04 Emy Coma Scale: Best Eye Response: (E4) spontaneous Best Motor Response: (M6) obeys commands Best Verbal Response: (V5) oriented Lott Score: 15 Emy Assessment Qualifiers: patient not sedated/intubated and no eye obstruction present Cough lasting greater than 3 weeks: no Allergies: yes Patient has homicidal thoughts: no Risk Screens Suicide Risk Screen In the Past Month: Have you wished you were or wished you could go to sleep and not wake up no In the Past Month: Have you had any actual thoughts of killing yourself no In Your Lifetime: Have you ever done anything, started to do anything, or prepared to do anything to end your life no Angelo Fall Scale Screening Has the patient fallen before (or is the patient in the ED as a result of a fall) has not had a fall Does the patient have an impaired gait does not have impaired gait Is the patient cognitively impaired not cognitively impaired Interventions: Angelo Fall Interventions: LOW INTERVENTIONS: *patient oriented to surroundings and call system, * patient/family falls education completed and documented, *patients fall status communicated during bedside handoff, *whiteboard updated, *mode of toileting discussed with patient, *bed in low position with brakes locked, *call light in reach, * non-skid footwear TRAVEL HISTORY Travel History Coronavirus Screening: no exposure or symptoms Travel Exposure History: NO travel to International locations in the past 30 days PAIN Pain Scale Used: CT Pain Rating (0-10): 10 = Severe Past Medical History: Past Medical History Reviewedyes Electronic Signatures: Tasha Gaona (RN) (Signed 07-Mar-2021 11:34) Authored: Quick Triage, Risk Screens, Travel History, Chart Review, Past Medical History Elsa Carvajal (EMT-P) (Signed 07-Mar-2021 10:30) Entered: Pain, Chart Review, Scores Authored: Quick Triage, Pain, Chart Review, Scores Last Updated: 07-Mar-2021 11:34 by Tasha Gaona (RN) Normal [facility] URINALYSISon 03-07-2021 Appearance (U) CLEAR Normal CLEAR [facility] Comment on above: Performed By: #### M G #### [address] [id number] Bilirubin Ql (U) Negative Normal NEGATIVE [facility] Comment on above: Performed By: #### M G #### [address] [id number] Color (U) YELLOW Normal STRAW,YELL OW [facility] Comment on above: Performed By: #### M G #### [address] [id number] Glucose Ql (U) Negative Normal NEGATIVE [facility] Comment on above: Performed By: #### M G #### [address] [id number] Hemoglobin Ql (U) Negative Normal NEGATIVE [facility] Comment on above: Performed By: #### M G #### [address] [id number] Ketones Ql (U) Negative Normal NEGATIVE [facility] Comment on above: Performed By: #### M G #### [address] [id number] Leukocyte esterase Test strip Ql (U) Negative Normal NEGATIVE [facility] Comment on above: Performed By: #### M G #### [address] [id number] Nitrite Ql (U) Negative Normal NEGATIVE [facility] Comment on above: Performed By: #### M G #### [address] [id number] pH (U) 6.0 [pH] Normal 5.0 - 8.0 [facility] Comment on above: Performed By: #### M G #### [address] [id number] Protein Ql (U) Negative Normal NEGATIVE [facility] Comment on above: Performed By: #### M G #### [address] [id number] Specific gravity (U) [Rel density] 1.008 Normal 1.005 - 1.035 [facility] Comment on above: Performed By: #### M G #### [address] [id number] Urobilinogen (U) [Mass/Vol] mg/dL Normal 0.0 - 1.9 [facility] Comment on above: Performed By: #### M G #### [address] [id number] Urinalysison 03-07-2021 Color (U) YELLOW See Below [facility] 201 DO Work Phone: Comment on above: Reference Range: STR AW,YELLOW Glucose Ql (U) Negative NEGATIVE -[facility] 201 DO Work Phone: Ketones Ql (U) Negative NEGATIVE [facility] 201 DO Work Phone: Leukocyte esterase Test strip Ql (U) Negative NEGATIVE [facility] 201 DO Work Phone: pH (U) 6.0 [pH] 5.0 - 8.0 [facility] 201 DO Work Phone: Protein (U) [Mass/Vol] Negative NEGATIVE [facility] 201 DO Work Phone: RBC (U) [#/Vol] Negative NEGATIVE [facility] 201 DO Work Phone: Specific gravity (U) [Rel density] 1.008 1 See Below [facility] 201 DO Work Phone: Comment on above: Reference Range: 1.0 05 - 1.035 Urinalysis Negative NEGATIVE [facility] 201 DO Work Phone: Urinalysis <2.0 0.0 - 1.9 [facility] 201 DO Work Phone: Urinalysis CLEAR CLEAR [facility] 201 DO Work Phone: Discharge [id number] Discharge Profile2 Discharge Orders: Anticipated Discharge Date: Anticipated Discharge [id number] DNAR: DNAR Status: none Activity: activity as tolerated. May shower. Diet: Diet Consistency/Texturesoft Provider FINAL REVIEW of Orders: Final Review: Final Review of Medication Reconciliation and Orders Completedby Physician Reviewing ProviderTino Shaw MD at 03-Mar-2021 13:09:37 Appointments: Follow-Up Appointment 01: Physician/Dept/Huang/arlin with Dr. Shaw next week sunday Phone [phone] Commentscall to make appointment Follow-Up Appointment 02: Physician/Dept/Catie luna with your Seismograph Helper at the [facility] Electronic Signatures: Tino Shaw) (Signed 03-Mar-2021 13:09) Authored: Discharge Orders, Provider FINAL REVIEW of Orders, Appointments, Gold Form - Costume Technician Summary Last Updated: 03-Mar-2021 13:09 by Tino Shaw) Normal [facility] GLUCOSE-POCTon 03-03-2021 Glucose [Mass/Vol] 122 mg/dL High 74 - 99 [facility] Comment on above: Performed By: #### B MP #### [address] [id number] Glucose [Mass/Vol] 98 mg/dL Normal 74 - 99 [facility] Comment on above: Performed By: #### T ROP2 #### [address] [id number] Laboratory - Chemistry and C hemistry - challengeon 03-03-2021 Glucose [Mass/Vol] 122 mg/dL above high threshold 74 - 99 [facility] 201 DO Work Phone: Glucose [Mass/Vol] 98 mg/dL 74 - 99 [facility] 201 DO Work Phone: Nutrition Therapy-Assessment on 03-03-2021 Nutrition Therapy-Assessment Assessment Subjective/Objective: Note Type: Assessment Note Authored by: Registered Dietitian Fx Artist Pager Number: [phone] or doc halo Nutrition Note: The patient is a 56 year old Female admitted with postop abdominal pain. Seen for MST 3 - completed by application support intern. Pt presented to hospital with c/o chest pain and abdominal pain. Patient underwent paraesophageal hernia repair in December 2020. Family present in room during assessment. Additional Dx: Diabetes mellitus due to underlying condition without complication: GERD (gastroesophageal reflux disease): Gastritis: Hiatal hernia: Medical History: S/P repair of paraesophageal hernia: Objective Information: Pain reported at 03/02 20:30: 6 = Moderate Height/Weight: Height in feet: 5 feet Height in inches: 3 inch(es) Height in cm: 160 centimeter(s) Weight (kg): 98.1 BMI (kg/m2): 38.32 square meter DBW (kg): 52.3 %DBW: 188 Weight history/ % weight change: Pt reports UBW 238# and has noticed she had unintentional weight loss. Per EMR, wt hx includes: 09/06/20 235# 10/21/20 232# 12/09/20 231# 12/31/20 220.9# 01/31/21 213.13# 15.8# (6.8%) wt loss x 4 mo. 18.8# (8%) wt loss x 6 mo. Significant Weight Change: no Recent Lab Results: Results: I have reviewed these laboratory results: Glucose_POCT 03-Mar-2021 06:41:00 ResultValue Glucose-POCT 98 Basic Metabolic Panel 02-Mar-2021 05:54:00 ResultValue Glucose, Serum 100 H NA 141 K 3.7 CL 108 H Bicarbonate, Serum 26 Anion Gap, Serum 11 BUN 10 CREAT 0.72 GFR-Non >60 GFR- >60 Calcium, Serum 8.7 Hemoglobin A1C, Level 02-Mar-2021 05:54:00 ResultValue Estimated Average Glucose 126 Hemoglobin A1C, Level 6.0 Diagnosis of Diabetes-Adults Non-Diabetic: < or = 5.6% Increased risk for developing diabetes: 5.7-6.4% Diagnostic of diabetes: > or = 6.5% . Monitoring of Diabetes Age (y) Therapeutic Goal (%) Adults: >1 Current Active Medications/PN: Ondansetron Injectable, (ZOFRAN) DOSE = 4 mg IntraVenous Push Every 4 Hours, PRN Nausea/Vomiting, 01-Mar-2021 Atorvastatin, Tablet (LIPITOR) DOSE = 80 mg Oral At Bedtime Notes from Pharmacy: Substitution for Rosuvastatin (CRESTOR) 40mg Oral At Bedtime, 01-Mar-2021 Simethicone, Tablet, Chewable (MYLICON) DOSE = 80 mg Oral 4 Times a Day After Meals, 01-Mar-2021 Insulin Lispro Mild Corrective Scale, Give SubCutaneous 4 Times a Day Insulin Timing Hypoglycemia Protocol Call LIP unit(s) if Blood Glucose is between 0 - 70 0 unit(s) if Blood Glucose is between 71 - 150 2 unit(s) if Blood Glucose is between 151 - 200 4 unit(s) if Blood Glucose is between 201 - 250 6 unit(s) if Blood Glucose is between 251 - 300 8 unit(s) if Blood Glucose is between 301 - 350 10 unit(s) if Blood Glucose is between 351 - 400 Notify Provider unit(s) if Blood Glucose is greater than 400 Notes from Pharmacy: CYNTHIA, 01-Mar-2021 Pantoprazole, Enteric Coated Tablet (PROTONIX) DOSE = 40 mg Oral 2 Times a Day, 02-Mar-2021 Nutrition Orders: May Participate in Room Service, Yes Order entered from Admission Screens., 01-Mar-2021 Diet, Diabetic Adult 45gram Carb/meal, 15gram Carb evening snack (6031-3377 calories), 02-Mar-2021 Food/Nutrition Related History: Change in Oral Intake/Appetite: decrease since November GI Symptoms: nausea Oral Problems: swallowing difficulty, pt reports swallowing difficulties at home, pt now reports it has resolved Food/Nutrition Related History: Pt reports eating 50% of her meals during this admission. Per whiteboard in room pt consumed <50% of breakfast 03/02. At home, pt would have 2 meals a day with snacks such as chips, crackers, or fruit. For meals pt likes to have grilled cheese with soup and hamburgers. Pt reports drinking 2 Boosts a day at home but hasn't been drinking them much lately. Pt agreeable to having them on her trays. Nutrition Focused Physical Findings: Muscle Wasting: Temporal: yes Shoulder: no Clavicle: no Interosseous: no Muscle Comment: mild wasting Loss of Subcutaneous Fat: Eyes: no Perioral: no Triceps: no Other Physical Findings: Mouth: negative Skin: no pressure injuries Edema: none Subjective Global Assessment Rating: unable to determine at this time Estimated Needs: kcals/day: 1847kcal/d (MSJ) gms protein/day: 98-117g/d (1-1.2g/kg ABW) mL fluid/day: 1 mL/kcal or per MD Nutrition Diagnosis: Diagnosis1 new. Dx: Unintended weight loss. related to Mid left-sided abdominal pain with recent hiatal hernia surgery and chest pain as evidenced by 18.8# (8%) wt loss x 7 mo.; mild muscle wasting. Nutrition Interventions: Individualized Nutrition Prescription Provided for: diet Ordered Supplements: Glucerna 2x/d (provides 220 kcal, 10 g protein per serving) Nutrition Goals: Goals: Nutrition Therapy: oral intake greater than 50%, (more content not included)... Normal [facility] Order Reconciliationon 03-03 Order Reconciliation Page 1 Discharge Reconciliation Document Reconciliation Type: Discharge requested on behalf of Tino Shaw (Physician) done by Tino Shaw) Discharge - Reconciliation: 03-Mar-2021 13:06 by: Tino Shaw) Home Medications EnteredHOME MEDICATIONS AT DISCHARGE DateReconciliation Comment/ Additional Information albuterol 2.5 mg/3 mL (0.083%) inhalation solution 3 milliliter(s) inhaled via nebulizer every 6 hours, As Needed 01-Mar-2021 10:11 albuterol 2.5 mg/3 mL (0.083%) inhalation solution 3 milliliter(s) inhaled via nebulizer every 6 hours, As Needed 01-Mar-2021 10:11 albuterol 2.5 mg/3 mL (0.083%) inhalation solution is continued as albuterol 2.5 mg/3 mL (0.083%) inhalation solution aspirin 81 mg oral tablet 1 tab(s) orally once a day 01-Mar-2021 10:11 Discontinued; Discontinue from ORM aspirin 81 mg oral tablet is not required Bystolic 10 mg oral tablet 1 tab(s) orally once a day (at bedtime) 17-Jun-2019 13:06 Bystolic 10 mg oral tablet 1 tab(s) orally once a day (at bedtime) 17-Jun-2019 13:06 Bystolic 10 mg oral tablet is continued as Bystolic 10 mg oral tablet Bystolic 10 mg oral tablet 2 tab(s) orally once a day in the morning 17-Jun-2019 13:05 Bystolic 10 mg oral tablet 2 tab(s) orally once a day in the morning 17-Jun-2019 13:05 Bystolic 10 mg oral tablet is continued as Bystolic 10 mg oral tablet gabapentin 300 mg oral capsule 1 cap(s) orally 2 times a day, As Needed 01-Mar-2021 10:10 gabapentin 300 mg oral capsule 1 cap(s) orally 2 times a day, As Needed 01-Mar-2021 10:10 gabapentin 300 mg oral capsule is continued as gabapentin 300 mg oral capsule LORazepam 0.5 mg oral tablet 1 tab(s) orally every 8 hours, As Needed - Anxiety 02-Jan-2021 09:58 LORazepam 0.5 mg oral tablet 1 tab(s) orally every 8 hours, As Needed - Anxiety 02-Jan-2021 09:58 LORazepam 0.5 mg oral tablet is continued as LORazepam 0.5 mg oral tablet losartan 25 mg oral tablet 1 tab(s) orally once a day (at bedtime) 23-Nov-2020 08:05 losartan 25 mg oral tablet 1 tab(s) orally once a day (at bedtime) 23-Nov-2020 08:05 losartan 25 mg oral tablet is continued as losartan 25 mg oral tablet Mitigare 0.6 mg oral capsule 1 cap(s) orally once a day (at bedtime) 01-Mar-2021 10:09 Mitigare 0.6 mg oral capsule 1 cap(s) orally once a day (at bedtime) 01-Mar-2021 10:09 Mitigare 0.6 mg oral capsule is continued as Mitigare 0.6 mg oral capsule nitroglycerin 0.4 mg sublingual tablet 1 tab(s) sublingual every 5 minutes, As Needed, for up to 3 doses 23-Nov-2020 08:07 nitroglycerin 0.4 mg sublingual tablet 1 tab(s) sublingual every 5 minutes, As Needed, for up to 3 doses 23-Nov-2020 08:07 nitroglycerin 0.4 mg sublingual tablet is continued as nitroglycerin 0.4 mg sublingual tablet polyethylene glycol 3350 oral powder for reconstitution use as directed once a day 01-Mar-2021 10:13 Discontinued; Discontinue from OR polyethylene glycol 3350 oral powder for reconstitution is not required ProAir HFA 90 mcg/inh inhalation aerosol 2 puff(s) inhaled 4 times a day, As Needed 17-Jun-2019 13:07 ProAir HFA 90 mcg/inh inhalation aerosol 2 puff(s) inhaled 4 times a day, As Needed 17-Jun-2019 13:07 ProAir HFA 90 mcg/inh inhalation aerosol is continued as ProAir HFA 90 mcg/inh inhalation aerosol rosuvastatin 40 mg oral tablet 1 tab(s) orally once a day 01-Mar-2021 10:09 rosuvastatin 40 mg oral tablet 1 tab(s) orally once a day 01-Mar-2021 10:09 rosuvastatin 40 mg oral tablet is continued as rosuvastatin 40 mg oral tablet simethicone 80 mg oral tablet, chewable 1 tab(s) orally 4 times a day (after meals and at bedtime), As Needed 02-Jan-2021 09:59 Discontinued; Discontinue from ORM simethicone 80 mg oral tablet, chewable is not required Turmeric 500 mg oral capsule 1 cap(s) orally 2 times a day 01-Mar-2021 10:06 Turmeric 500 mg oral capsule 1 cap(s) orally 2 times a day 01-Mar-2021 10:06 Turmeric 500 mg oral capsule is continued as Turmeric 500 mg oral capsule Zofran 8 mg oral tablet 1 tab(s) orally every 8 hours, As Needed 02-Jan-2021 10:00 Zofran 8 mg oral tablet 1 tab(s) orally every 8 hours, As Needed 02-Jan-2021 10:00 Zofran 8 mg oral tablet is continued as Zofran 8 mg oral tablet Current OrdersDateHOME MEDICATIONS AT DISCHARGE DateReconciliation Comment/ Additional Information Acetaminophen Tablet (TYLENOL)DOSE = 650 mg Oral Every 4 Hours, PRN Temp Greater Than or Equal to 38.0 C 01-Mar-2021 11:45 Acetaminophen is not required Acetaminophen Tablet (TYLENOL)DOSE = 650 mg Oral Every 6 Hours, PRN Pain - Mild (1-3) 01-Mar-2021 11:45 Acetaminophen is not required Albuterol 2.5 mg/ 3 mL Nebulizer Soln (PROVENTIL)DOSE = 3 mL Inhalation Every 6 Hours via Nebulizer, PRN Shortness of Breath 01-Mar-2021 11:41 Albuterol 2.5 mg/ 3 mL Nebulizer Soln is not required Atorvastatin Tablet (LIPITOR)DOSE = 80 mg Oral At BedtimeNotes from Pharmacy: Substitution for Rosuvastatin (CRESTOR) 40mg Oral A (more content not included)... Normal [facility] BASIC METABOLIC PANELon 07-2 Anion gap [Moles/Vol] 11 mmol/L Normal 10 - 20 [facility] Comment on above: Performed By: #### M G #### [facility] [address] [place], [place] [id number] Calcium [Mass/Vol] 8.7 mg/dL Normal 8.6 - 10.3 [facility] Comment on above: Performed By: #### M G #### [address] [id number] Chloride [Moles/Vol] 108 mmol/L High 98 - 107 [facility] Comment on above: Performed By: #### M G #### [address] [id number] Creatinine [Mass/Vol] 0.72 mg/dL Normal 0.50 - 1.05 [facility] Comment on above: Performed By: #### M G #### [address] [id number] GFR- AM. >60 Normal >60 [facility] Comment on above: Result Comment: CALC ULATIONS OF ESTIMATED GFR ARE PERFORMED USING THE MDRD STUDY EQUATION FOR THE IDMS-TRACEABLE CREATININE METHODS. CLIN CHEM 2007;53:766-72 Performed By: #### M G #### [address] [id number] GFR-NON AM. >60 Normal >60 [facility] Comment on above: Performed By: #### M G #### [address] [id number] HCO3 (Bld) [Moles/Vol] 26 mmol/L Normal 21 - 32 [facility] Comment on above: Performed By: #### M G #### [address] [id number] Potassium [Moles/Vol] 3.7 mmol/L Normal 3.5 - 5.3 [facility] Comment on above: Performed By: #### M G #### [address] [id number] Sodium [Moles/Vol] 141 mmol/L Normal 136 - 145 [facility] Comment on above: Performed By: #### M G #### [address] [id number] Urea nitrogen [Mass/Vol] 10 mg/dL Normal 6 - 23 [facility] Comment on above: Performed By: #### M G #### [address] [id number] CBCon 03-02-2021 Erythrocyte distribution width (RBC) [Ratio] 13.5 % Normal 11.5 - 14.5 [facility] Comment on above: Performed By: #### C BC #### [address] [id number] Hematocrit (Bld) [Volume fraction] 38.0 % Normal 36.0 - 46.0 [facility] Comment on above: Performed By: #### C BC #### [address] [id number] Hemoglobin (Bld) [Mass/Vol] 12.0 g/dL Normal 12.0 - 16.0 [facility] Comment on above: Performed By: #### C BC #### [address] [id number] MCHC (RBC) [Mass/Vol] 31.6 g/dL Low 32.0 - 36.0 [facility] Comment on above: Performed By: #### C BC #### [address] [id number] MCV (RBC) [Entitic vol] 96 fL Normal 80 - 100 [facility] Comment on above: Performed By: #### C BC #### [address] [id number] Platelets (Bld) [#/Vol] 190 10*3/uL Normal 150 - 450 [facility] Comment on above: Performed By: #### C BC #### [address] [id number] RBC 3.94 x10E12/L Low 4.00 - 5.20 [facility] Comment on above: Performed By: #### C BC #### [address] [id number] WBC (Bld) [#/Vol] 5.3 10*3/uL Normal 4.4 - 11.3 [facility] Comment on above: Performed By: #### C #### [address] [id number] Daily Progress Note-Cardiolo yasirjocelyne 03-02-2021 Daily Progress Note-Cardiology Service: Cardiology History of Present Illness: History Present Illness: Admission Reason: Chest pain, abdominal pain HPI: JOY HAWTHORNE is a 56 year old Female Hospitalist history and physical History of Present Illness: Admission Reason: Chest pain, abdominal pain HPI: JOY HAWTHORNE is a 56 year old Female who presents to [facility] emergency department with complaints of chest pain and abdominal pain. Patient underwent paraesophageal hernia repair in December 2020. She recovered nicely at home however mid January she felt a tearing sensation in her left upper abdomen which is caused her pain since. She had a repeat CT of the abdomen and pelvis on 02/22/2021 which did not show any acute intra-abdominal findings. She reports the pain intensifies on a daily basis prompting her evaluation today. She denies having any nausea/vomiting or diarrhea. She denies any melena or amparo bloody stools. She denies any loss of appetite but also endorses approximate 60 pound weight loss since her surgery in December. Today, while being taken down for right upper quadrant ultrasound patient developed midsternal chest pressure radiating to her back. She was brought back to the emergency room for further treatment. Chest pain was not associated with any dizziness, shortness of breath, nausea or diaphoresis. Chest pain is not reproducible. No aggravating factors. Chest pain resolved spontaneously. She does have a history of PCI back in 2012 at [facility]. Patient had a stress test approximately 1 year ago which was normal. Any shortness of breath, cough, palpitations, fever, chills, nausea, vomiting, diarrhea or any urinary symptoms. She denies any lower extremity swelling PMH: HTN, HLD, paraesophageal hernia, NIDDM II, anxiety, CAD Surg Hx: cholecystectomy hysterectomy, paraesophageal repair, PCI 2012 Fam Hx: reviewed and not pertinent to chief complaint Social Hx: Never smoked, denies alcohol and drug use ROS: All other systems have been reviewed and are negative for complaint Subjective Data: JOY HAWTHORNE is a 56 year old Female who is Hospital Day # 2. Objective Data: Objective Information: T PRBPSpO2 [id number]/6897% Date/Time03/02 15:107 15: 11:357 15: 15:10 Range(35.6C - 36.7C ) (40 - 59 ) (18 - 20 ) (135 - 188 )/ (68 - 89 ) (97% - 100% ) Pain reported at 03/02 8:45: 5 = Moderate ---- Intake and Output ----- [facility]Out[facility] Mar 02, 2021 6:00 am000 Recent Lab Results: Results: CBC: 03/02/2021 05:54 \\ Hgb / \\ 12.0 / WBC Plt 5.3 190 / Hct \\ / 38.0 \\ RBC: 3.94 L MCV: 96 BMP: 03/02/2021 05:54 NA+ Cl- BUN / 141 108 H 10 / ----- Glucose 100 H K+ HCO3- Creat \\ 3.7 26 0.72 \\ Calcium : 8.7 Anion Gap : 11 Radiology Results: Results: Impression: Diffuse hepatic steatosis. Surgically absent gallbladder, No biliary dilatation. Signed by Montana Villanueva MD Ultrasound Right Upper Quadrant [Mar 01 2021 9:32AM] Impression: 1.gallbladder. 2.coli. No acute diverticulitis. 3.uterus. 4.acute intra-abdominal or pelvic finding. Signed by Kenneth Gutierrez MD CT Abdomen and Pelvis with IV Contrast [Feb 22 2021 11:07AM] Conclusion: Normal sinus rhythm Nonspecific ST abnormality Abnormal ECG When compared with ECG of 31-DEC-2020 06:33, No significant change was found Confirmed by VIV TRENT, VENKAT ([id number]) on 01/27/2021 3:54:26 PM Electrocardiogram 12 Lead [Jan 27 2021 3:54PM] Impression: No definite acute intra-abdominal pathology identified. Presumed postoperative changes are seen in the left upper quadrant abdominal wall with mild skin thickening and fat stranding, correlate with clinical exam for any possibility of superficial soft tissue infection. No evidence of abscess or recurrent hernia. Signed by Kassie Sims CT Abdomen and Pelvis with IV Contrast [Jan 25 2021 11:17PM] Conclusion: Sinus bradycardia Cannot rule out Anterior infarct , age undetermined Abnormal ECG When compared with ECG of 29-FEB-2020 15:11, T wave amplitude has decreased in Lateral leads Confirmed by MD SERRATO ALBERTO ([id number]) on 01/04/2021 10:01:22 PM Electrocardiogram 12 Lead [Jan 04 2021 10:01PM] Impression: ESOPHAGEAL DYSMOTILITY SMALL ENTIRELY SLIDING HIATAL HERNIA OF DOUBTFUL CLINICAL SIGNIFICANCE NO GASTROESOPHAGEAL REFLUX ELICITED, DESPITE PROVOCATIVE/VALSALVA MANEUVER Xray Esophagram [Oct 29 2020 10:41AM] Conclusion: CONCLUSIONS: 1. The left ventricular systolic function is normal with a 60-65% estimated ejection fraction. 2. Essentially normal echocardiogram. QUANTITATIVE DATA SUMMARY: 2D MEASUREMENTS: Normal Ranges: LAs: 3.40 cm (2.7-4.0cm) IVSd: 0.76 cm (0.6-1.1cm) LVPWd: 0.80 cm (0.6-1.1cm) LVIDd: 4.83 cm (3.9 (more content not included)... Normal [facility] Daily Progress Note-Medicine on 03-02-2021 Daily Progress Note-Medicine Service: Medicine Subjective Data: JOY HAWTHORNE is a 56 year old Female who is Hospital Day # 2. Additional Information: SUBJECTIVE: Today, he states he feels well, he denies chest pain, shortness of breath, denies nausea, vomiting, fever, chills. PHYSICAL EXAM: GENERAL: Laying in bed, does not appear to be in any distress. HEENT: HEAD: Normocephalic atraumatic. CVS: S1, S2 heard. Regular rate and rhythm LUNGS: Clear to auscultate bilaterally. No wheezing or rhonchi appreciated. ABDOMEN: Soft, mild tenderness to palpate over left lower quadrant. NEUROLOGICAL: No focal neurological deficits appreciated. Cranial nerves are grossly intact. EXTREMITIES: No edema appreciated. LABS AND IMAGING: WBC 5.3 hemoglobin 12.0 hematocrit 38 Sodium 141 potassium 07 chloride 107 BUN 10 creatinine 0.72 ASSESSMENT AND PLAN: This is a 56-year-old female with past medical history of coronary artery disease, who presented to the emergency room with chest pain and abdominal pain. 1. Chest pain Serial troponins negative, remains chest pain-free. When looking at her [facility] records, she had a cardiac cath done in March 2016 which showed patent stents to her RCA. Had a stress test in 2019 which showed no evidence of ischemia. Echocardiogram shows preserved EF. Waiting for cardiology recommendation 2. Abdominal pain Underwent an endoscopy which showed an ulcer. Seen by general surgery, started on Protonix and Carafate. Diet advanced. 3. Diabetes mellitus. Continue low-dose sliding scale. Objective Data: Objective Information: T PRBPSpO2 [id number]/6897% Date/Time03/02 15: 15: 11: 15: 15:10 Range(35.6C - 36.7C ) (40 - 59 ) (18 - 20 ) (135 - 188 )/ (68 - 89 ) (97% - 100% ) Pain reported at 03/02 8:45: 5 = Moderate ---- Intake and Output ----- [facility] Mar 02, 2021 6:00 am000 Recent Lab Results: Results: CBC: 03/02/2021 05:54 \\ Hgb / \\ 12.0 / WBC Plt 5.3 190 / Hct \\ / 38.0 \\ RBC: 3.94 L MCV: 96 BMP: 03/02/2021 05:54 NA+ Cl- BUN / 141 108 H 10 / ----- Glucose 100 H K+ HCO3- Creat \\ 3.7 26 0.72 \\ Calcium : 8.7 Anion Gap : 11 Assessment and Plan: Code Status: Code StatusFull Code Electronic Signatures: Danna Rm) (Signed 02-Mar-2021 15:28) Authored: Service, Subjective Data, Objective Data, Assessment and Plan, Note Completion Last Updated: 02-Mar-2021 15:28 by Danna Rm) Normal [facility] Discharge Planning [id number] 03-02-2021 Discharge Planning Note2 Discharge Planning: Needs Prior to Discharge (ex. Home Care Orders, IV/O2 prescriptions) none Discharge Barriers (ex. Avoidable days, wait guardianship, pt refuse leave) none Planned Dispositionhome Discharge Destinationhome [facility] SYSTEM < 20no Anticipated Discharge [id number] Discharge Planning 03.03.21 tcc note 1123 Rounded w/ rn. I met w/ pt, introduced self and role. pt admitted w/abd, had egd with/ pud. pt. lives with/ spouse. pt confirms demo's ins and pcp. Pt has transportation. Pt is independent in mobility, adls and iadls without AD. Pt prefers a home d/c. s. eligio ESTRELLA TCC Assessment: Discharge Planning Assessment [id number] Stated Reason for AdmissionPatient originally came in for abd. pain but started having chest pain in ultrasound s got admitted(1) [place] (1) Lives Withparent(s)(1) Living Arrangementshouse(1) Resource/Environmental Concernsnone(1) Anticipated Transition [place](1) Services Anticipated at Transitionnone(1) Electronic Signatures: Laura June (COOR) (Signed 03-Mar-2021 16:45) Authored: Discharge Planning, Assessment Last Updated: 03-Mar-2021 16:45 by Laura June (COOR) References: 1. Data Referenced From Patient Profile - Adult v2 01-Mar-2021 13:22 Normal [facility] Echocardiogramon 03-02-2021 Echocardiography [place] [address] TRANSTHORACIC ECHOCARDIOGRAM REPORT Patient Name: JOY Tisha Hensley Physician: [id number] Luke Sherman MD Study Date: 03/02/2021 Referring [id number] DANNA Physician: CALDERON MRN/PID: [id number] PCP: Accession/Order#: [id number] [facility] Echo Location: Lab Date of : 1965 Fellow: Gender: F Nurse: Admit Date: 03/01/2021 Well Drill Operator Rotary Drill: Sadia Almeida RDCS Admission Status: Observation - Additional Staff: Priority discharge Height: 160.00 cm CC Report to: [address] [place] [address] EMCLocation Weight: 98.00 kg Study Type: Echocardiogram BSA: 2.00 m2 Blood Pressure: 138 /68 mmHg Diagnosis/ICD: R07.89-Other chest pain Indication: Chest Pain Procedure/CPT: Echo Complete w Full Doppler-[id number] Patient History: Pertinent History: CAD, HTN, Hyperlipidemia and Chest Pain. Study Detail: The following Echo studies were performed: 2D, M-Mode, Doppler, color flow, Strain and 3D. PHYSICIAN INTERPRETATION: Left Ventricle: The left ventricular systolic function is normal, with an estimated ejection fraction of 60-65%. There are no regional wall motion abnormalities. The left ventricular cavity size is normal. Left Ventricular Global Longitudinal Strain-24.7%. Spectral Doppler shows a normal pattern of left ventricular diastolic filling. Left Atrium: The left atrium is mildly dilated. Right Ventricle: The right ventricle is normal in size. There is normal right ventricular global systolic function. Right Atrium: The right atrium is mildly dilated. Aortic Valve: The aortic valve is trileaflet. There is no evidence of aortic valve regurgitation. The peak instantaneous gradient of the aortic valve is 10.8 mmHg. The mean gradient of the aortic valve is 5.0 mmHg. Mitral Valve: The mitral valve is mildly thickened. There is no evidence of mitral valve regurgitation. Tricuspid Valve: The tricuspid valve is structurally normal. There is trace to mild tricuspid regurgitation. Pulmonic Valve: The pulmonic valve is not well visualized. There is no indication of pulmonic valve regurgitation. Pericardium: There is a trivial to small pericardial effusion. Aorta: The aortic root is normal. CONCLUSIONS: 1. The left ventricular systolic function is normal with a 60-65% estimated ejection fraction. 2. Essentially normal echocardiogram. QUANTITATIVE DATA SUMMARY: 2D MEASUREMENTS: Normal Ranges: LAs: 3.40 cm (2.7-4.0cm) IVSd: 0.76 cm (0.6-1.1cm) LVPWd: 0.80 cm (0.6-1.1cm) LVIDd: 4.83 cm (3.9-5.9cm) LVIDs: 3.19 cm LV Mass Index: 62.0 g/m2 LV % FS 34.0 % LA VOLUME: Normal Ranges: LA Vol A4C: 52.0 ml (22+/-6mL/m2) LA Vol A4C: 55.7 ml LA Vol A2C: 65.7 ml LA Vol BP: 60.0 ml LA Vol Index A4C: 26.0 ml/m2 LA Vol Index A2C: 32.9 ml/m2 LA Vol Index BP: 30.1 ml/m2 LA Area A4C: 18.0 cm2 LA Area A2C: 20.8 cm2 LA [place] A4C: 5.3 cm LA [place] A2C: 5.6 cm LA Volume Index: 27.9 ml/m2 LA Vol A4C: 47.5 ml LA Vol A2C: 62.5 ml RA VOLUME BY A/L METHOD: Normal Ranges: RA Vol A4C: 40.1 ml (8.3-19.5ml) RA Vol Index A4C: 20.0 ml/m2 RA Area A4C: 14.4 cm2 RA [place] A4C: 4.4 cm M-MODE MEASUREMENTS: Normal Ranges: Ao Root: 2.70 cm (2.0-3.7cm) AoV Exc: 2.00 cm (1.5-2.5cm) LAs: 4.65 cm (2.7-4.0cm) AORTA MEASUREMENTS: Normal Ranges: AoV Exc: 2.00 cm (1.5-2.5cm) LV SYSTOLIC FUNCTION BY 2D PLANIMETRY (MOD): Normal Ranges: EF-A4C View: 59.3 % (>55%) EF-A2C View: 57.9 % EF-Biplane: 57.9 % LV DIASTOLIC FUNCTION: Normal Ranges: MV Peak E: 1.06 m/s (0.7-1.2 m/s) MV Peak A: 0.78 m/s (0.42-0.7 m/s) E/A Ratio: 1.35 (1.0-2.2) MV e' 0.08 m/s (>8.0) MV lateral e' 0.08 m/s MV medial e' 0.10 m/s E/e' Ratio: 12.57 (<8.0) a' 0.08 m/s MV DT: 232 msec (150-240 msec) PulmV Sys Catrina: 64.00 cm/s PulmV Ward Catrina: 52.40 cm/s PulmV S/D Catrina: 1.20 PulmV A Revs Catrina: 24.70 cm/s PulmV A Revs Dur: 119.00 msec MITRAL VALVE: Normal Ranges: MV DT: 232 msec (150-240msec) AORTIC VALVE: Normal Ranges: AoV Vmax: 1.64 m/s (<1.7m/s) AoV Peak P.8 mmHg (<20mmHg) AoV Mean P.0 mmHg (1.7-11.5mmHg) LVOT Max Catrina: 1.03 m/s (<1.1m/s) AoV VTI: 44.20 cm (18-25cm) LVOT VTI: 30.30 cm LVOT Diameter: 2.10 cm (1.8-2.4cm) AoV Area, VTI: 2.37 cm2 (2.5-5.5cm2) AoV Area,Vmax: 2.18 cm2 (2.5-4.5cm2) AoV Dimensionless Index: 0.69 RIGHT VENTRICLE: RV 1 3.4 cm RV 2 2.7 cm RV 3 7.6 cm TAPSE: 24.2 mm RV s' 0.11 m/s TRICUSPID VALVE/RVSP: Normal Ranges: Peak TR Velocity: 2.70 m/s RV Syst Pressure: 32.2 mmHg (< 30mmHg) PULMONIC VALVE: Normal Ranges: PV Max Catrina: 0.9 m/s (0.6-0.9m/s) PV Max P.1 mmHg Pulmonary Veins: PulmV A Revs Dur: 119.00 msec PulmV A Revs Catrina: 24.70 cm/s PulmV Ward Catrina: 52.40 cm/s PulmV S/D Catrina: 1.20 PulmV Sys Catrina: 64.00 cm/s [id number] Luke Sherman MD Electronically signed on 03/02/2021 at 2:34:42 PM Final Normal [facility] GLUCOSE-POCTon 03-02-2021 Glucose [Mass/Vol] 116 mg/dL High 74 - 99 [facility] Comment on above: Performed By: #### L IPAS #### [address] [id number] Glucose [Mass/Vol] 92 mg/dL Normal 74 - 99 [facility] Comment on above: Performed By: #### L IPAS #### [address] [id number] Glucose [Mass/Vol] 108 mg/dL High 74 - 99 [facility] Comment on above: Performed By: #### M G #### [address] [id number] Glucose [Mass/Vol] 100 mg/dL High 74 - 99 [facility] 201 DO Work Phone: Comment on above: Performed By: #### L IPAS #### [address] [id number] Performed By: #### M G #### [address] [id number] HEMOGLOBIN A1Con 03-02-2021 Glucose [Mass/Vol] 126 mg/dL Normal [facility] Comment on above: Performed By: #### T ROP2 #### [address] [id number] HbA1c (Bld) [Mass fraction] 6.0 % Normal [facility] Comment on above: Result Comment: Diag nosis of Diabetes-Adults Non-Diabetic: < or = 5.6% Increased risk for developing diabetes: 5.7-6.4% Diagnostic of diabetes: > or = 6.5% . Monitoring of Diabetes Age (y) Therapeutic Goal (%) Adults: >18 <7.0 Pediatrics: 13-18 <7.5 7-12 <8.0 0- 6 7.5-8.5 [place] [employer]. Diabetes Care 33(S1), Aug 2009. Performed By: #### T ROP2 #### [address] [id number] Hemoglobin A1Con 03-02-2021 Glucose [Mass/Vol] 126 mg/dL [facility] 201 DO Work Phone: HbA1c (Bld) [Mass fraction] 6.0 % -[facility] 201 DO Work Phone: Comment on above: Diagnosis of Diabete s-Adults Non-Diabetic: < or = 5.6% Increased risk for developing diabetes: 5.7-6.4% Diagnostic of diabetes: > or = 6.5%. Monitoring of Diabetes Age (y) Therapeutic Goal (%) Adults: >18 <7.0 Pediatrics: 13-18 <7.5 7-12 <8.0 0- 6 7.5-8.5 [place] [employer]. Diabetes Care 33(S1), Aug 2009. LIPID PANEL (CORONARY RISK 2 )on 03-02-2021 Cholesterol [Mass/Vol] 107 mg/dL Normal 0 - 199 [facility] Comment on above: Result Comment: . AGE DESIRABLE BORDERLINE HIGH HIGH 0-19 Y 0 - 169 170 - 199 >/= 200 20-24 Y 0 - 189 190 - 224 >/= 225 >24 Y 0 - 199 200 - 239 >/= 240 All ranges are based on fasting samples. Specific therapeutic targets will vary based on patient-specific cardiac risk. . Pediatric guidelines reference:Pediatrics 2011, 128(S5). Adult guidelines reference: NCEP ATPIII Guidelines, JAYANT 2001, 258:2486-97 . Venipuncture immediately after or during the administration of Metamizole may lead to falsely low results. Testing should be performed immediately prior to Metamizole dosing. Performed By: #### T ROP2 #### [address] [id number] Cholesterol in HDL [Mass/Vol] 28.0 mg/dL Abnormal [facility] Comment on above: Result Comment: . AGE VERY LOW LOW NORMAL HIGH 0-19 Y < 35 < 40 40-45 ---- 20-24 Y ---- < 40 >45 ---- >24 Y ---- < 40 40-60 >60 . Performed By: #### T ROP2 #### [address] [id number] Cholesterol in LDL [Mass/Vol] 49 mg/dL Normal 0 - 99 [facility] Comment on above: Result Comment: . NEAR BORD AGE DESIRABLE OPTIMAL HIGH HIGH VERY HIGH 0-19 Y 0 - 109 --- 110-129 >/= 130 ---- 20-24 Y 0 - 119 --- 120-159 >/= 160 ---- >24 Y 0 - 99 100-129 130-159 160-189 >/=190 . Performed By: #### T ROP2 #### [address] [id number] Cholesterol in VLDL [Mass/Vol] 30 mg/dL Normal 0 - 40 [facility] Comment on above: Performed By: #### T ROP2 #### [address] [id number] Cholesterol.total/Chol esterol in HDL [Mass ratio] 3.8 {ratio} Normal [facility] Comment on above: Result Comment: REF VALUES DESIRABLE < 3.4 HIGH RISK > 5.0 Performed By: #### T ROP2 #### [address] [id number] Triglyceride [Mass/Vol] 151 mg/dL High 0 - 149 [facility] Comment on above: Result Comment: . AGE DESIRABLE BORDERLINE HIGH HIGH VERY HIGH 0 D-90 D 19 - 174 ---- ---- ---- 91 D- 9 Y 0 - 74 75 - 99 >/= 100 ---- 10-19 Y 0 - 89 90 - 129 >/= 130 ---- 20-24 Y 0 - 114 115 - 149 >/= 150 ---- >24 Y 0 - 149 150 - 199 200- 499 >/= 500 . Venipuncture immediately after or during the administration of Metamizole may lead to falsely low results. Testing should be performed immediately prior to Metamizole dosing. Performed By: #### T ROP2 #### [address] [id number] Laboratory - Chemistry and C hemistry - challengeon 03-02-2021 Glucose [Mass/Vol] 116 mg/dL above high threshold 74 - 99 -[facility] 201 DO Work Phone: Glucose [Mass/Vol] 92 mg/dL 74 - 99 -[facility] 201 DO Work Phone: Glucose [Mass/Vol] 108 mg/dL above high threshold 74 - 99 [facility] 201 DO Work Phone: [phone] Anion gap [Moles/Vol] 11 mmol/L 10 - 20 [facility] Work Phone: Calcium [Mass/Vol] 8.7 mg/dL 8.6 - 10.3 -[facility] 201 DO Work Phone: Chloride [Moles/Vol] 108 mmol/L above high threshold 98 - 107 [facility] DO Work Phone: CO2 [Moles/Vol] 26 mmol/L 21 - 32 [facility] 201 DO Work Phone: Creatinine [Mass/Vol] 0.72 mg/dL See Below [facility] 201 DO Work Phone: [phone] Comment on above: Reference Range: 0.5 0 - 1.05 Potassium [Moles/Vol] 3.7 mmol/L 3.5 - 5.3 [facility] 201 DO Work Phone: Sodium [Moles/Vol] 141 mmol/L 136 - 145 [facility] 201 DO Work Phone: Urea nitrogen [Mass/Vol] 10 mg/dL 6 - 23 [facility] DO Work Phone: [phone] Laboratory - Hematology and Cell countson 03-02-2021 Erythrocyte distribution width (RBC) [Ratio] 13.5 % See Below [facility] 201 DO Work Phone: [phone] Comment on above: Reference Range: 11. 5 - 14.5 Hematocrit (Bld) [Volume fraction] 38.0 % See Below [facility] 201 DO Work Phone: Comment on above: Reference Range: 36. 0 - 46.0 Hemoglobin (Bld) [Mass/Vol] 12.0 g/dL See Below [facility] 201 DO Work Phone: Comment on above: Reference Range: 12. 0 - 16.0 MCHC (RBC) [Mass/Vol] 31.6 g/dL below low threshold See Below [facility] 201 DO Work Phone: Comment on above: Reference Range: 32. 0 - 36.0 MCV (RBC) [Entitic vol] 96 fL 80 - 100 [facility] 201 DO Work Phone: Platelets (Bld) [#/Vol] 190 10*3/uL 150 - 450 [facility] 201 DO Work Phone: RBC (Bld) [#/Vol] 3.94 {x10E12/L} below low threshold See Below [facility] 201 DO Work Phone: Comment on above: Reference Range: 4.0 0 - 5.20 WBC (Bld) [#/Vol] 5.3 10*3/uL 4.4 - 11.3 [facility] 201 DO Work Phone: Lipid Panelon 03-02-2021 Cholesterol [Mass/Vol] 107 mg/dL 0 - 199 [facility] 201 DO Work Phone: Comment on above: . AGE DESIRABLE BORD JOAQUIN HIGH HIGH 0-19 Y 0 - 169 170 - 199 >/= 200 20-24 Y 0 - 189 190 - 224 >/= 225 >24 Y 0 - 199 200 - 239 >/= 240 All ranges are based on fasting samples. Specific therapeutic targets will vary based on patient-specific cardiac risk.. Pediatric guidelines reference:Pediatrics 2011, 128(S5). Adult guidelines reference: NCEP ATPIII Guidelines, JAYANT 2001, 258:2486-97. Venipuncture immediately after or during the administration of Metamizole may lead to falsely low results. Testing should be performed immediately prior to Metamizole dosing. Cholesterol in HDL [Mass/Vol] 28.0 mg/dL Abnormal [facility] 201 DO Work Phone: Comment on above: . AGE VERY LOW LOW N ORMAL HIGH 0-19 Y < 35 < 40 40-45 ---- 20-24 Y ---- < 40 >45 ---- >24 Y ---- < 40 40-60 >60. Cholesterol in LDL [Mass/Vol] 49 mg/dL 0 - 99 [place] [address] DO Work Phone: Comment on above: . NEAR BORD AGE NARESH RABLE OPTIMAL HIGH HIGH VERY HIGH 0-19 Y 0 - 109 --- 110-129 >/= 130 ---- 20-24 Y 0 - 119 --- 120-159 >/= 160 ---- >24 Y 0 - 99 100-129 130-159 160-189 >/=190. Cholesterol.total/Chol esterol in HDL [Mass ratio] 3.8 {ratio} [place] [address] DO Work Phone: Comment on above: REF VALUESDESIRABLE < 3.4HIGH RISK > 5.0 Triglyceride [Mass/Vol] 151 mg/dL above high threshold 0 - 149 [place] [address] DO Work Phone: Comment on above: . AGE DESIRABLE BORD JOAQUIN HIGH HIGH VERY HIGH 0 D-90 D 19 - 174 ---- ---- ----91 D- 9 Y 0 - 74 75 - 99 >/= 100 ---- 10-19 Y 0 - 89 90 - 129 >/= 130 ---- 20-24 Y 0 - 114 115 - 149 >/= 150 ---- >24 Y 0 - 149 150 - 199 200- 499 >/= 500. Venipuncture immediately after or during the administration of Metamizole may lead to falsely low results. Testing should be performed immediately prior to Metamizole dosing. Lipid Panel 30 mg/dL 0 - 40 [place] [address] DO Work Phone: No Panel Informationon 03-02 [facility] 201 DO Work Phone: [email or web address]/ [email or web address] [email or web address]?={[email or web address] } [facility] 201 DO Work Phone: [facility] 201 DO Work Phone: [email or web address] [email or web address]?={[email or web address] [id number] } [facility] 201 DO Work Phone: >60 >60 [facility] 201 DO Work Phone: Comment on above: CALCULATIONS OF GWENDOLYN MATED GFR ARE PERFORMED USING THE MDRD STUDY EQUATION FOR THE IDMS-TRACEABLE CREATININE METHODS. CLIN CHEM 2007;53:766-72 Troponin I, Serumon 03-02-20 21 Troponin I.cardiac [Mass/Vol] ng/mL Normal 0.00 - 0.03 [facility] 201 DO Work Phone: Comment on above: Reference Range: 0.0 0 - 0.03LESS THAN 0.04 NG/ML: NEGATIVEREPEAT TESTING IN THREE TO SIX HOURSIF CLINICALLY INDICATED.0.04 - 0.5 NG/ML: CONSISTENT WITH POSSIBLECARDIAC DAMAGE AND POSSIBLE INCREASEDCLINICAL RISK.SERIAL MEASUREMENTS MAY HELP ASSESS EXTENT OFMYOCARDIAL DAMAGE.>0.5 NG/ML: CONSISTENT WITH CARDIAC DAMAGE,INCREASED CLINICAL RISK AND MYOCARDIALINFARCTION. SERIAL MEASUREMENTS MAY HELPASSESS EXTENT OF MYOCARDIAL DAMAGE..Note: Troponin I testing is performed using different testing methodology at [facility] than at other [facility]. Direct result comparisons should only be made within the same method. Result Comment: LESS THAN 0.04 NG/ML: NEGATIVE REPEAT TESTING IN THREE TO SIX HOURS IF CLINICALLY INDICATED. 0.04 - 0.5 NG/ML: CONSISTENT WITH POSSIBLE CARDIAC DAMAGE AND POSSIBLE INCREASED CLINICAL RISK. SERIAL MEASUREMENTS MAY HELP ASSESS EXTENT OF MYOCARDIAL DAMAGE. >0.5 NG/ML: CONSISTENT WITH CARDIAC DAMAGE, INCREASED CLINICAL RISK AND MYOCARDIAL INFARCTION. SERIAL MEASUREMENTS MAY HELP ASSESS EXTENT OF MYOCARDIAL DAMAGE. . Note: Troponin I testing is performed using different testing methodology at [facility] than at other [facility]. Direct result comparisons should only be made within the same method. Performed By: #### T ROP2 #### [address] [id number] [facility] Surgical Pathology Depar tmenton 03-02-2021 [facility] Surgical Pathology Department Name JOY HAWTHORNE Pathologist: ANNA CHAMPAGNE M.D. Date of Procedure: 03/02/2021 Date Received: 03/02/2021 Date Reported 03/03/2021 Submitting Physician: TINO SHAW MD Location: [address] Copy To/Referring/Attending: MACK URIBE MD Other External # FINAL DIAGNOSIS A. ANTRUM OF STOMACH, BIOPSY: --REACTIVE GASTROPATHY, NO HELICOBACTER IDENTIFIED. B. GASTRIC BODY, BIOPSY: --OXYNTIC MUCOSA, NO SIGNIFICANT HISTOPATHOLOGICAL ABNORMALITIES. C. ASCENDING COLON, POLYPECTOMY: --TUBULAR ADENOMA. Electronically Signed Out By ANNA CHAMPAGNE M.D./IHSAN By the signature on this report, the individual or group listed as making the Final Interpretation/Diagnosis certifies that they have reviewed this case. Clinical History: Abdominal pain Specimens Submitted As: A: ANTRAL BIOPSY B: GASTRIC BODY BIOPSY C: ASCENDING COLON POLYP Gross Description: A: Received in formalin, labeled with the patient's name and hospital number and antral biopsy . The specimen consists of 3 pieces of guevara tissue measuring 0.3 cm each. The specimen is wrapped and entirely submitted in one cassette. KN B: Received in formalin, labeled with the patient's name and hospital number and gastric body biopsy . The specimen consists of 3 pieces of guevara tissue measuring 0.2 to 0.3 cm each. The specimen is wrapped and entirely submitted in one cassette. KN C: Received in formalin, labeled with the patient's name and hospital number and ascending colon polyp . The specimen consists of 3 pieces of guevara tissue measuring 0.1 to 0.4 cm each. The specimen is wrapped and entirely submitted in one cassette. KN Gross dissection performed at: [place] [address] [place], [place] [address] [phone] kxn/03/02/2021 [facility] Department of Pathology [address] [place] [address] Normal [facility] Comment on above: Performed By: #### U HCS ####[facility] Surgical Pathology [address] [facility] [address] Admission Risk Screen - Adul ton 03-01-2021 Admission Risk Screen - Adult Allergies: Allergies: allopurinol: Hives/Urticaria sulfa drugs: Hives/Urticaria Patient Verification: New W ID Band Applied in my Departmentno Type of ID Patient is WearingW wristband, but not applied here Patient [facility] Patient Identity Verified Bypatient ID Band FULL Name, include Middle, spelling matches patient's ID used for verificationyes ID Band Matches Patient ID used for Verficationyes ID Band MRN Matches EMR MRNyes Visitor Restriction: Coronavirus Visitor Restriction: Reasonable restrictions to in-person visitors will be observed due to current coronavirus pandemic. Travel History: COVID-19 Screening Completedno exposure or symptoms(1) Travel or Exposure Past 30 DaysNO travel to International locations in the past 30 days Ebola AlertFor Ebola-like Symptoms: Isolate Patient and Notify Provider/Home Comfort Advisor For Contact: Notify Provider/Home Comfort Advisor Advance Directive: Advance Directive/DNRno (2) Advance Directive Information Givenpatient/family declined (2) Angelo Fall Screen: History of falling (immediate or previous)no (0) Secondary Diagnosisno (0) Intravenous Therapy/ Heparin/Saline Lockyes (20) Gait/Transferringnormal/bed rest/wheelchair (0) Ambulatory Aidsnone/bedrest/nurse assist (0) Mental Statusoriented to own ability (0) Score: Low risk (<25). Moderate risk (25-44). High risk (>44).20 Angelo InterventionsLOW INTERVENTIONS: *patient oriented to surroundings and call system, * patient/family falls education completed and documented, *patients fall status communicated during bedside handoff, *whiteboard updated, *mode of toileting discussed with patient, *bed in low position with brakes locked, *call light in reach, * non-skid footwear Family Violence Screen: Are you or have you been threatened or abused physically, emotionally, or sexually by anyoneno Do you feel UNSAFE going back to the place where you are livingno Clinical assessment: Are there any apparent signs of injuries/behaviors that could be related to abuse/neglectno Social Service Consult for abuse/neglect needed this visitno Functional Screen: Functional Screen: In the recent/past 2-4 weeks, patient or family have noticedno issues that require a speech/language consult at this time AM-PAC- Basic Mobility/Daily Activity: Patient baseline bedboundno Turning from your back to your side while in a flat bed without using bedrailsnone Moving from lying on your back to sitting on the side of a flat bed without using bedrailsnone Moving to and from bed to chair (including a wheelchair)none Standing up from a chair using your arms (e.g. wheelchair or bedside chair) none To walk in hospital roomnone Climbing 3-5 steps with railingnone Basic Mobility - Total Score24 Putting on and taking off regular lower body clothingnone Bathing (including washing, rinsing, drying)none Putting on and taking off regular upper body clothingnone Toileting, which includes using toilet, bedpan or urinalnone Taking care of personal grooming such as brushing teethnone Eating Mealsnone Daily Activity - Total Score24 Learning Assessment (Patient): Patient is Able to be Assessed for Learningyes Factors Influencing Readiness to Learninterest in learning Factors that Impact Ability to Learnnone Devices/Methods Used to Communicateglasses, reading Learning Preferencesskill demonstration; verbal instruction Cultural Considerationsnone Developmental Considerationsnone Rastafarian Considerationsnone Learning Assessment (Other Learner): Other learner availableno Depression Screen: During the past month, have you often been bothered by feeling down, depressed or hopelessno During the past month, have you often had little interest or pleasure in doing thingsno Have you had any thoughts of harming anyone elseno (1) [place] Suicide: Risk Screen Not Applicable/Able to Answerable to be screened In the Past Month: Have you wished you were or could go to sleep and not wake upno(1) In the Past Month: Have you had any actual thoughts of killing yourself no(1) Lifetime: Have you ever done, started to do, or prepared to do anything to end your lifeno [place] Suicide Risknegative Adult Nutrition Screen: Have you recently lost weight without tryingyes; 14-23 lb Have you been eating poorly because of a decreased appetiteyes Malnutrition Screening Tool Score3 Malnutrition Screening Tool RiskMST = 2 or more At Risk. Eating poorly and/or recent weight loss Nutrition Consult needed this visitno Can Patient Participate in Room Serviceyes Patient requires Paper Dishes/Plastic Utensilsno CommentsPatient just had surgery Pain Screen: Pain Scalenumerical 0-10 Pain Scale Educationteaching provided Current Pain Level5 = Moderate Acceptable Pain Level3 = Mild Expre (more content not included)... Normal [facility] BASIC METABOLIC PANELon 02-11-2020 Anion gap [Moles/Vol] 12 mmol/L Normal - 20 [facility] Comment on above: Performed By: #### T ROP2 #### [address] [id number] Calcium [Mass/Vol] 8.9 mg/dL Normal 8.6 - 10.3 [facility] Comment on above: Performed By: #### T ROP2 #### [address] [id number] Chloride [Moles/Vol] 108 mmol/L High 98 - 107 [facility] Comment on above: Performed By: #### T ROP2 #### [address] [id number] Creatinine [Mass/Vol] 0.87 mg/dL Normal 0.50 - 1.05 [facility] Comment on above: Performed By: #### T ROP2 #### [address] [id number] GFR- AM. >60 Normal >60 [facility] Comment on above: Result Comment: CALC ULATIONS OF ESTIMATED GFR ARE PERFORMED USING THE MDRD STUDY EQUATION FOR THE IDMS-TRACEABLE CREATININE METHODS. CLIN CHEM 2007;53:766-72 Performed By: #### T ROP2 #### [address] [id number] GFR-NON AM. >60 Normal >60 [facility] Comment on above: Performed By: #### T ROP2 #### [address] [id number] Glucose [Mass/Vol] 140 mg/dL High 74 - 99 [facility] Comment on above: Performed By: #### T ROP2 #### [address] [id number] HCO3 (Bld) [Moles/Vol] 24 mmol/L Normal 21 - 32 [facility] Comment on above: Performed By: #### T ROP2 #### [address] [id number] Potassium [Moles/Vol] 3.9 mmol/L Normal 3.5 - 5.3 [facility] Comment on above: Performed By: #### T ROP2 #### [address] [id number] Sodium [Moles/Vol] 140 mmol/L Normal 136 - 145 [facility] Comment on above: Performed By: #### T ROP2 #### [address] [id number] Urea nitrogen [Mass/Vol] 13 mg/dL Normal 6 - 23 [facility] Comment on above: Performed By: #### T ROP2 #### [address] [id number] CBC AND DIFFERENTIALon 03-01 % AUTOMATED IMMATURE GRAN 0.2 % Normal 0.0 - 0.9 [facility] Comment on above: Result Comment: [place] ture Granulocyte Count (IG) includes promyelocytes, myelocytes and metamyelocytes but does not include bands. Percent differential counts (%) should be interpreted in the context of the absolute cell counts (cells/L). Performed By: #### B MP #### [address] [id number] Basophils (Bld) [#/Vol] 0.08 10*3/uL Normal 0.00 - 0.10 [facility] Comment on above: Performed By: #### B MP #### [address] [id number] Basophils/100 WBC (Bld) 1.2 % Normal 0.0 - 2.0 [facility] Comment on above: Performed By: #### B MP #### [address] [id number] Eosinophils (Bld) [#/Vol] 0.26 10*3/uL Normal 0.00 - 0.70 [facility] Comment on above: Performed By: #### B MP #### [address] [id number] Eosinophils/100 WBC (Bld) 4.0 % Normal 0.0 - 6.0 [facility] Comment on above: Performed By: #### B MP #### [address] [id number] Erythrocyte distribution width (RBC) [Ratio] 13.2 % Normal 11.5 - 14.5 [facility] Comment on above: Performed By: #### B MP #### [address] [id number] Hematocrit (Bld) [Volume fraction] 41.8 % Normal 36.0 - 46.0 [facility] Comment on above: Performed By: #### B MP #### [address] [id number] Hemoglobin (Bld) [Mass/Vol] 13.3 g/dL Normal 12.0 - 16.0 [facility] Comment on above: Performed By: #### B MP #### [address] [id number] Lymphocytes (Bld) [#/Vol] 2.46 10*3/uL Normal 1.20 - 4.80 [facility] Comment on above: Performed By: #### B MP #### [address] [id number] Lymphocytes/100 WBC (Bld) 37.8 % Normal 13.0 - 44.0 [facility] Comment on above: Performed By: #### B MP #### [address] [id number] MCHC (RBC) [Mass/Vol] 31.8 g/dL Low 32.0 - 36.0 [facility] Comment on above: Performed By: #### B MP #### [address] [id number] MCV (RBC) [Entitic vol] 95 fL Normal 80 - 100 [facility] Comment on above: Performed By: #### B MP #### [address] [id number] Monocytes (Bld) [#/Vol] 0.46 10*3/uL Normal 0.10 - 1.00 [facility] Comment on above: Performed By: #### B MP #### [address] [id number] Monocytes/100 WBC (Bld) 7.1 % Normal 2.0 - 10.0 [facility] Comment on above: Performed By: #### B MP #### [address] [id number] Neutrophils (Bld) [#/Vol] 3.24 10*3/uL Normal 1.20 - 7.70 [facility] Comment on above: Performed By: #### B MP #### [address] [id number] Neutrophils/100 WBC (Bld) 49.7 % Normal 40.0 - 80.0 [facility] Comment on above: Performed By: #### B MP #### [address] [id number] Platelets (Bld) [#/Vol] 231 10*3/uL Normal 150 - 450 [facility] Comment on above: Performed By: #### B MP #### [address] [id number] RBC 4.40 x10E12/L Normal 4.00 - 5.20 [facility] Comment on above: Performed By: #### B MP #### [address] [id number] WBC (Bld) [#/Vol] 6.5 10*3/uL Normal 4.4 - 11.3 [facility] Comment on above: Performed By: #### B MP #### [address] [id number] CORONAVIRUS 2019, SCREEN ASY MPTOMATICon 03-01-2021 SARS-CoV-2 (COVID-19) RNA CAMILA+probe Ql (Unsp spec) Not detected Normal Not Detected [facility] Comment on above: Result Comment: . This test has received FDA Emergency Use Authorization (EUA) and has been verified by [facility]. This test is only authorized for the duration of time that circumstances exist to justify the authorization of the emergency use of in vitro diagnostic tests for the detection of SARS-CoV-2 virus and/or diagnosis of COVID-19 infection under section 564(b)(1) of the Act, 21 U.S.C. 360bbb-3(b)(1), unless the authorization is terminated or revoked sooner. [facility] is certified under CLIA-88 as qualified to perform high complexity testing. Testing is performed in the [facility] laboratory located at [address] [place] [id number]. SARS-CoV-2/Flu/RSV Multiplex Test: Fact sheet for providers: https://www.fda.gov/media/012736/download Fact sheet for patients: https://www.fda.gov/media/885072/download Performed By: #### T ROP2 #### [address] [id number] Lab Specimen Source Nasal, Nasopharyngeal Normal [facility] Comment on above: Performed By: #### T ROP2 #### [address] [id number] Complete Blood Count + Diffe rentialon 03-01-2021 Basophils/100 WBC (Bld) 1.2 % 0.0 - 2.0 [facility] 201 DO Work Phone: Erythrocyte distribution width (RBC) [Ratio] 13.2 % See Below [facility] 201 DO Work Phone: Comment on above: Reference Range: 11. 5 - 14.5 Hematocrit (Bld) [Volume fraction] 41.8 % See Below [facility] 201 DO Work Phone: Comment on above: Reference Range: 36. 0 - 46.0 Hemoglobin (Bld) [Mass/Vol] 13.3 g/dL See Below [facility] 201 DO Work Phone: Comment on above: Reference Range: 12. 0 - 16.0 Lymphocytes/100 WBC (Bld) 37.8 % See Below [facility] 201 DO Work Phone: Comment on above: Reference Range: 13. 0 - 44.0 MCHC (RBC) [Mass/Vol] 31.8 g/dL below low threshold See Below [facility] 201 DO Work Phone: Comment on above: Reference Range: 32. 0 - 36.0 MCV (RBC) [Entitic vol] 95 fL 80 - 100 [facility] 201 DO Work Phone: Monocytes/100 WBC (Bld) 7.1 % 2.0 - 10.0 [facility] 201 DO Work Phone: Neutrophils/100 WBC (Bld) 49.7 % See Below [facility] 201 DO Work Phone: Comment on above: Reference Range: 40. 0 - 80.0 Platelets (Bld) [#/Vol] 231 10*3/uL 150 - 450 [facility] 201 DO Work Phone: RBC (Bld) [#/Vol] 4.40 {x10E12/L} See Below [facility] 201 DO Work Phone: Comment on above: Reference Range: 4.0 0 - 5.20 WBC (Bld) [#/Vol] 6.5 10*3/uL 4.4 - 11.3 [facility] Work Phone: Complete Blood Count + Differential 0.08 {x10E9/L} See Below [facility] 201 DO Work Phone: Comment on above: Reference Range: 0.0 0 - 0.10 Complete Blood Count + Differential 0.26 {x10E9/L} See Below [facility] DO Work Phone: Comment on above: Reference Range: 0.0 0 - 0.70 Complete Blood Count + Differential 0.46 {x10E9/L} See Below [facility] 201 DO Work Phone: Comment on above: Reference Range: 0.1 0 - 1.00 Complete Blood Count + Differential 2.46 {x10E9/L} See Below [facility] DO Work Phone: Comment on above: Reference Range: 1.2 0 - 4.80 Complete Blood Count + Differential 3.24 {x10E9/L} See Below [facility] 201 DO Work Phone: Comment on above: Reference Range: 1.2 0 - 7.70 Complete Blood Count + Differential 4.0 % 0.0 - 6.0 [facility] 201 DO Work Phone: Complete Blood Count + Differential 0.2 % 0.0 - 0.9 [facility] DO Work Phone: Comment on above: Immature Granulocyte Count (IG) includes promyelocytes, myelocytes and metamyelocytes but does not include bands. Percent differential counts (%) should be interpreted in the context of the absolute cell counts (cells/L). Consult-Cardiologyon 021 Consult-Cardiology Service: Service: Cardiology Consult: Consult requested by (Attending Name): Danna Rm Reason: Chest pain History of Present Illness: Admission Reason: Chest pain, abdominal pain HPI: JOY HAWTHORNE is a 56 year old Female Hospitalist history and physical History of Present Illness: Admission Reason: Chest pain, abdominal pain HPI: JOY HAWTHORNE is a 56 year old Female who presents to [facility] emergency department with complaints of chest pain and abdominal pain. Patient underwent paraesophageal hernia repair in December 2020. She recovered nicely at home however mid January she felt a tearing sensation in her left upper abdomen which is caused her pain since. She had a repeat CT of the abdomen and pelvis on 02/22/2021 which did not show any acute intra-abdominal findings. She reports the pain intensifies on a daily basis prompting her evaluation today. She denies having any nausea/vomiting or diarrhea. She denies any melena or amparo bloody stools. She denies any loss of appetite but also endorses approximate 60 pound weight loss since her surgery in December. Today, while being taken down for right upper quadrant ultrasound patient developed midsternal chest pressure radiating to her back. She was brought back to the emergency room for further treatment. Chest pain was not associated with any dizziness, shortness of breath, nausea or diaphoresis. Chest pain is not reproducible. No aggravating factors. Chest pain resolved spontaneously. She does have a history of PCI back in 2012 at [facility]. Patient had a stress test approximately 1 year ago which was normal. Any shortness of breath, cough, palpitations, fever, chills, nausea, vomiting, diarrhea or any urinary symptoms. She denies any lower extremity swelling PMH: HTN, HLD, paraesophageal hernia, NIDDM II, anxiety, CAD Surg Hx: cholecystectomy hysterectomy, paraesophageal repair, PCI 2012 [facility] Hx: reviewed and not pertinent to chief complaint Social Hx: Never smoked, denies alcohol and drug use ROS: All other systems have been reviewed and are negative for complaint Review Family/Social History and ROS: Social History: Smoking Status: never smoker (1) Alcohol Use: denies(1) Drug Use: denies (1) Drug 2 Use: denies (1) Allergies: allopurinol: Hives/Urticaria sulfa drugs: Hives/Urticaria Objective: Medications: Medications: Continuous Medications ----- 1. Lactated Ringers Infusion: 1000 mL IntraVenous Scheduled Medications ----- 1. Atorvastatin: 80 mg Oral At Bedtime 2. Colchicine: 0.6 mg Oral Daily 3. Famotidine: 20 mg Oral 2 Times a Day 4. Insulin Lispro Mild Corrective Scale: unit(s) SubCutaneous 4 Times a Day Insulin Timing 5. Losartan: 25 mg Oral Daily 6. Metoprolol Succinate Extended Release: 200 mg Oral Daily 7. Pantoprazole: 40 mg Oral Daily 8. Polyethylene Glycol: 238 gram(s) Oral Once 9. Simethicone: 80 mg Oral 4 Times a Day After Meals PRN Medications ----- 1. Acetaminophen: 650 mg Oral Every 6 Hours 2. Acetaminophen: 650 mg Oral Every 4 Hours 3. Albuterol 2.5 mg/ 3 mL Nebulizer Soln: 3 mL Inhalation Every 6 Hours 4. Dextromethorphan - guaiFENesin Oral Liquid: 5 mL Oral Every 4 Hours 5. Dextrose 50% in Water Injectable: 25 gram(s) IntraVenous Push Every 15 Minutes 6. Gabapentin: 300 mg Oral 2 Times a Day 7. Glucagon Injectable: 1 mg IntraMuscular Every 15 Minutes 8. LORazepam: 0.5 mg Oral Every 8 Hours 9. Magnesium Hydroxide -Al Hydrox -Simethicone Oral Liquid: 30 mL Oral Every 6 Hours 10. Melatonin: 6 mg Oral At Bedtime 11. Morphine Injectable: 1 mg IntraVenous Push Every 1 Hour 12. Morphine Injectable: 2 mg IntraVenous Push Every 4 Hours 13. Nitroglycerin SubLingual: 0.4 mg SubLingual Every 5 Minutes 14. Ondansetron Injectable: 4 mg IntraVenous Push Every 4 Hours Conditional Medication Orders ----- 1. Perflutren Lipid Microsphere (Activated) 1.3 mL / NaCL 0.9% T.V. 10 mL Injectable: 0.5 mL IntraVenous Push Once Recent Lab Results: Results: CBC: 03/01/2021 05:46 \\ Hgb / \\ 13.3 / WBC Plt 6.5 231 / Hct \\ / 41.8 \\ RBC: 4.40 MCV: 95 Neutrophil %: 49.7 BMP: 03/01/2021 05:46 NA+ Cl- BUN / 140 108 H 13 / ----- Glucose 140 H K+ HCO3- Creat \\ 3.9 24 0.87 \\ Calcium : 8.9 Anion Gap : 12 I have reviewed these laboratory results: Glucose_POCT Trending View [id number] 16:20:00 01-Mar-2021 12:32:00 [id number] Troponin I, Serum Trending View [id number] 12:23:00 01-Mar-2021 08:02:00 01-Mar-2021 05:46:00 Troponin I, Serum<0.02 <0.02 <0.02 Coronavirus 2018, Screen Asymptomatic 01-Mar-2021 08:02:00 ResultValue Fluid Source Nasal, Nasopharyngeal Coronavirus 2018 (more content not included)... Normal [facility] Coronavirus 2019 RNA by PCR, Screening Asymptomticon 03-01-2021 Coronavirus 2019 RNA by PCR, Screening Asymptomtic Not detected Normal See Below -[facility] 201 DO Work Phone: Comment on above: SOURCE: Nasal, Nasop haryngealReference Range: Not Detected.This test has received FDA Emergency Use Authorization (EUA) and has been verified by [facility]. This test is only authorized for the duration of time that circumstances exist to justify the authorization of the emergency use of in vitro diagnostic tests for the detection of SARS-CoV-2 virus and/or diagnosis of COVID-19 infection under section 564(b)(1) of the Act, 21 U.S.C. 360bbb-3(b)(1), unless the authorization is terminated or revoked sooner. [facility] is certified under CLIA-88 as qualified to perform high complexity testing. Testing is performed in the [facility] laboratory located at [address] [place] [address].SARS-CoV-2/Flu/RSV Multiplex Test: Fact sheet for providers: https://www.fda.gov/media/268094/downloadFact sheet for patients: https://www.fda.gov/media/237422/download Covid 19 Resultson 1 SARS-CoV-2 (COVID-19) RNA CAMILA+probe Ql (Unsp spec) NEGATIVE COVID-19 Test Coronaviruses are common world-wide and are the cause of many common colds. SARS-COV2 is a new coronavirus that began circulating worldwide in 2019 so we are calling it COVID-19. It has been estimated that four out of five patients with COVID-19 will recover at home without the need for medical attention. Symptoms of COVID-19 may include cough, fever, shortness of breath, loss of taste or smell and other flu-like symptoms including chills, sore muscles, sore throat, and headache. Severe illness is more common in older people and people with other health problems such as high blood pressure, obesity, and immune system problems. If the test is positive, you have COVID-19. You will be contacted by the ordering physicians office and instructed to remain on home isolation, in accordance with CDC guidelines. You may also be contacted by the [facility] to see if any of your close contacts may have been exposed to the virus and need to quarantine. If the test is negative, you likely do not have COVID-19 at this time, but you still may have a different illness that can spread to other people (like Influenza, or the Flu) and could still be at risk for getting COVID-19. We recommend that you stay away from other people to limit the spread of illness until your symptoms are improving and you are fever-free for 24 hours without the use of fever lowering medications such as acetaminophen or ibuprofen. No test is 100% accurate so if you are still concerned you may have COVID-19, talk to your doctor about the need to continue to stay away from others. Medicines Unless your provider told you not to use the following: Acetaminophen (Tylenol and others) is generally safe. Anti-inflammatory medications, such as Ibuprofen (Advil or Motrin) or Naproxen (Aleve) can also be used. Onay-zew-mrtrihr cough and cold medicines can be used according to the instructions on the package. Some tzey-pse-rvsrryt medicines also contain acetaminophen. Make sure you are not taking more than your recommended dose. For those not hospitalized, there is no specific treatment available for this illness. Antibiotics do not treat Coronaviruses. Follow-Up Follow up with your doctor by scheduling a virtual visit or consider follow-up at one of our urgent care fever clinics. If you are having difficulty breathing, or are very weak and having difficulty standing, this is a medical emergency. Call 911 or have someone take you to the nearest emergency room immediately. If possible, wear a facemask. Additional guidance from the CDC for patients who tested POSITIVE for COVID-19 How to isolate: Isolate yourself in a specific room at home and limit your contact with others. Use a separate bathroom from other members of the household, when possible. Leave home only to get essential medical care. Do not go to work, school or public areas. Avoid using public transportation, ride-sharing, or taxis. Restrict contact with pets and other animals. If you must care for your pet or be around animals while you are sick, wash your hands before and after your interaction and wear a facemask. Make sure that shared spaces in the home have good airflow, such as by an air conditioner or an opened window, weather permitting. Personal Hygiene Procedures: Wear a face mask when in the same room as other people or pets. If a face mask interferes with your breathing, others should wear a mask when sharing space with you. Frequent hand-washing: wash your hands with soap and water for at least 20 seconds. If soap and water are not available, use alcohol-based hand set up person. Avoid touching your eyes, nose, and mouth with unwashed hands. Household Hygiene Procedures: Avoid sharing personal household items such as dishes, glassware, cups, eating utensils, towels or bedding with other people or pets in your home. After use, these items should be washed with soap and hot water. Disinfect all high-touch surfaces every day with antibacterial cleaning solutions such as Lysol wipes, bleach, cleansers, etc. High-touch surfaces include tabletops, doorknobs, bathroom fixtures, toilets, phones, keyboards, tablets and bedside tables. Immediately clean any surfaces that may have blood, poop or body fluids on them, using antibacterial cleaning solutions such as Lysol wipes, bleach, cleansers, etc. If clothing or bedding come into contact with blood, poop or body fluids, they should be washed immediately. Follow the directions on the laundry detergent and clothing labels but hot water is recommended when possible. Stopping home isolation precautions: If possible, consult your doctor before stopping home isolation precautions. According to the CDC, you can discontinue home isolation precautions when you have met both of these criteria: Your fever and respiratory symptoms have been gone for 24 mima (more content not included)... Normal [facility] Daily Progress Note-Acute Ca re Surgeryon 03-01-2021 Daily Progress Note-Acute Care Surgery Service: Acute Care Surgery Subjective Data: JOY HAWTHORNE is a 56 year old Female who is Hospital Day # 1. Additional Information: See my office note from 02/21/2021. History of laparoscopic repair of type 3 paraesophageal hernia with toupet wrap on December 31, 2020. Few weeks history of LUQ abdominal pain with and without meal. Multiple ER visits for pain with negative workups. CT abd/pelvis on 02/22/2021 shows no acute intra-abdominal process. Patient presented to ER overnight with worsening LUQ pain. While in the ER, she reported substernal chest pain. LFTs normal except for slight elevation of alkphos. Normal CBC and lipase. Gall bladder ultrasound shows no biliary dilation and absent gall bladder. Troponin negative so far. Objective Data: Objective Information: T PRBPSpO2 [id number]/6996% Date/Time03/01 11: 11: 11: 11: 11:44 Range(36.4C - 36.9C ) (53 - 63 ) (18 - 22 ) (94 - 171 )/ (51 - 92 ) (96% - 98% ) Highest temp of 36.9 C was recorded at 03/01 5:20 Pain reported at 03/01 8:01: 4 = Moderate T PRBPSpO2 [id number]/6996% Date/Time03/01 11: 11: 11: 11: 11:44 Range(36.4C - 36.9C ) (53 - 63 ) (18 - 22 ) (94 - 171 )/ (51 - 92 ) (96% - 98% ) Highest temp of 36.9 C was recorded at 03/01 5:20 Physical Exam by System: Constitutional: moaning and appears uncomfortable Respiratory/Thorax: Patent airways, CTAB, normal breath sounds with good chest expansion, thorax symmetric Cardiovascular: Regular, rate and rhythm, no murmurs, 2+ equal pulses of the extremities, normal S 1and S 2 Gastrointestinal: soft, non-distended, moderate tenderness in LUQ/left mid abdominal region, no peritoneal sign Musculoskeletal: ROM intact, no joint swelling, normal strength Extremities: normal extremities, no cyanosis edema, contusions or wounds, no clubbing Medication: Medications: Continuous Medications ----- No continuous medications are active Scheduled Medications ----- 1. Aspirin Enteric Coated: 81 mg Oral Daily 2. Atorvastatin: 80 mg Oral At Bedtime 3. Colchicine: 0.6 mg Oral Daily 4. Enoxaparin SubCutaneous: 40 mg SubCutaneous Every 24 Hours 5. Famotidine: 20 mg Oral 2 Times a Day 6. Insulin Lispro Mild Corrective Scale: unit(s) SubCutaneous 4 Times a Day Insulin Timing 7. Losartan: 25 mg Oral Daily 8. Metoprolol Succinate Extended Release: 200 mg Oral Daily 9. Pantoprazole: 40 mg Oral Daily 10. Simethicone: 80 mg Oral 4 Times a Day After Meals PRN Medications ----- 1. Acetaminophen: 650 mg Oral Every 6 Hours 2. Acetaminophen: 650 mg Oral Every 4 Hours 3. Albuterol 2.5 mg/ 3 mL Nebulizer Soln: 3 mL Inhalation Every 6 Hours 4. Dextromethorphan - guaiFENesin Oral Liquid: 5 mL Oral Every 4 Hours 5. Dextrose 50% in Water Injectable: 25 gram(s) IntraVenous Push Every 15 Minutes 6. Gabapentin: 300 mg Oral 2 Times a Day 7. Glucagon Injectable: 1 mg IntraMuscular Every 15 Minutes 8. LORazepam: 0.5 mg Oral Every 8 Hours 9. Magnesium Hydroxide -Al Hydrox -Simethicone Oral Liquid: 30 mL Oral Every 6 Hours 10. Melatonin: 6 mg Oral At Bedtime 11. Morphine Injectable: 1 mg IntraVenous Push Every 1 Hour 12. Nitroglycerin SubLingual: 0.4 mg SubLingual Every 5 Minutes 13. Ondansetron Injectable: 4 mg IntraVenous Push Every 4 Hours 14. Polyethylene Glycol: 17 gram(s) Oral Daily Recent Lab Results: Results: CBC: 03/01/2021 05:46 \\ Hgb / \\ 13.3 / WBC Plt 6.5 231 / Hct \\ / 41.8 \\ RBC: 4.40 MCV: 95 Neutrophil %: 49.7 BMP: 03/01/2021 05:46 NA+ Cl- BUN / 140 108 H 13 / ----- Glucose 140 H K+ HCO3- Creat \\ 3.9 24 0.87 \\ Calcium : 8.9 Anion Gap : 12 I have reviewed these laboratory results: Troponin I, Serum Trending View [id number] 12:23:00 01-Mar-2021 08:02:00 01-Mar-2021 05:46:00 Troponin I, Serum<0.02 <0.02 <0.02 Coronavirus 2019, Screen Asymptomatic 01-Mar-2021 08:02:00 ResultValue Fluid Source Nasal, Nasopharyngeal Coronavirus 2019,PCR NOT DETECTED Reference Range: Not Detected . This test has received FDA Emergency Use Authorization (EUA) and has been verified by [facility]. This test is only authorized for the duration of time that circumsta Hepatic Function Panel 01-Mar-2021 05:46:00 ResultValue Aspartate Transaminase, Serum 30 ALB 4.0 T Bili 0.5 Bilirubin, Serum Direct - Conjugated 0.1 ALKP 120 H Alanine Aminotransferase, Serum 36 T Pro 6.9 Complete Blood Count + Differential 01-Mar-2021 05:46:00 ResultValue White Blood Cell Count 6.5 Red Blood Cell Count 4.40 HGB 13.3 HCT 41.8 MCV 95 MCHC 31.8 L PLT 231 RDW-CV 13.2 Neutrophil % 49.7 Immature Granulocytes % 0.2 Lymphocyt (more content not included)... Normal [facility] GLUCOSE-POCTon 03-01-2021 Glucose [Mass/Vol] 136 mg/dL High 74 - 99 [facility] Comment on above: Performed By: #### L IPAS #### [address] [id number] Glucose [Mass/Vol] 91 mg/dL Normal 74 - 99 [facility] Comment on above: Performed By: #### C BCDF #### [address] [id number] Glucose [Mass/Vol] 86 mg/dL Normal 74 - 99 [facility] Comment on above: Performed By: #### L IPAS #### [address] [id number] HEPATIC FUNCTION PANELon Albumin [Mass/Vol] 4.0 g/dL Normal 3.4 - 5.0 [facility] Comment on above: Performed By: #### M G #### [address] [id number] ALP [Catalytic activity/Vol] 120 U/L High 33 - 110 [facility] Comment on above: Performed By: #### M G #### [address] [id number] ALT [Catalytic activity/Vol] 36 U/L Normal 7 - 45 [facility] Comment on above: Result Comment: Anabel ents treated with Sulfasalazine may generate falsely decreased results for ALT. Performed By: #### M G #### [address] [id number] AST [Catalytic activity/Vol] 30 U/L Normal 9 - 39 [facility] Comment on above: Performed By: #### M G #### [address] [id number] Bilirubin [Mass/Vol] 0.5 mg/dL Normal 0.0 - 1.2 [facility] Comment on above: Performed By: #### M G #### [address] [id number] Bilirubin.indirect [Mass/Vol] 0.1 mg/dL Normal 0.0 - 0.3 [facility] Comment on above: Performed By: #### M G #### [address] [id number] Protein [Mass/Vol] 6.9 g/dL Normal 6.4 - 8.2 [facility] Comment on above: Performed By: #### M G #### [address] [id number] Hepatic Function Panelon Albumin BCP dye [Mass/Vol] 4.0 g/dL 3.4 - 5.0 [facility] DO Work Phone: ALP [Catalytic activity/Vol] 120 U/L above high threshold 33 - 110 [facility] DO Work Phone: ALT With P-5'-P [Catalytic activity/Vol] 36 U/L 7 - 45 [facility] DO Work Phone: Comment on above: Patients treated wit h Sulfasalazine may generate falsely decreased results for ALT. AST With P-5'-P [Catalytic activity/Vol] 30 U/L 9 - 39 [facility] DO Work Phone: Bilirubin [Mass/Vol] 0.5 mg/dL 0.0 - 1.2 -Lesli walsh [facility] DO Work Phone: Bilirubin.direct [Mass/Vol] 0.1 mg/dL 0.0 - 0.3 [facility] 201 DO Work Phone: Protein [Mass/Vol] 6.9 g/dL 6.4 - 8.2 [facility] DO Work Phone: LACTATEon 03-01-2021 Lactate [Moles/Vol] 1.6 mmol/L Normal 0.4 - 2.0 [facility] Comment on above: Result Comment: Rosina puncture immediately after or during the administration of Metamizole may lead to falsely low results. Testing should be performed immediately prior to Metamizole dosing. Performed By: #### T ROP2 #### [address] [id number] LIPASEon 03-01-2021 Lipase [Catalytic activity/Vol] 14 U/L Normal 9 - 82 [facility] Comment on above: Result Comment: Rosina puncture immediately after or during the administration of Metamizole may lead to falsely low results. Testing should be performed immediately prior to Metamizole dosing. X-frcpsd-h-benzoquinone imine (metabolite of Acetaminophen) will generate erroneously low results in samples for patients that have taken toxic doses of acetaminophen. Performed By: #### T ROP2 #### [address] [id number] Laboratory - Chemistry and C hemistry - challengeon 03-01-2021 Glucose [Mass/Vol] 136 mg/dL above high threshold 74 - 99 [facility] DO Work Phone: Glucose [Mass/Vol] 91 mg/dL 74 - 99 [facility] 201 DO Work Phone: Glucose [Mass/Vol] 86 mg/dL 74 - 99 [facility] DO Work Phone: Anion gap [Moles/Vol] 12 mmol/L 10 - 20 [facility] 201 DO Work Phone: Calcium [Mass/Vol] 8.9 mg/dL 8.6 - 10.3 [facility] 201 DO Work Phone: Chloride [Moles/Vol] 108 mmol/L above high threshold 98 - 107 [facility] 201 DO Work Phone: CO2 [Moles/Vol] 24 mmol/L 21 - 32 [facility] 201 DO Work Phone: Creatinine [Mass/Vol] 0.87 mg/dL See Below [facility] 201 DO Work Phone: Comment on above: Reference Range: 0.5 0 - 1.05 Glucose [Mass/Vol] 140 mg/dL above high threshold 74 - 99 [facility] 201 DO Work Phone: Potassium [Moles/Vol] 3.9 mmol/L 3.5 - 5.3 [facility] 201 DO Work Phone: Sodium [Moles/Vol] 140 mmol/L 136 - 145 [facility] 201 DO Work Phone: Urea nitrogen [Mass/Vol] 13 mg/dL 6 - 23 [facility] 201 DO Work Phone: Lactate, Levelon 03-01-2021 Lactate [Moles/Vol] 1.6 mmol/L 0.4 - 2.0 [facility] 201 DO Work Phone: Comment on above: Venipuncture immedia tely after or during the administration of Metamizole may lead to falsely low results. Testing should be performed immediately prior to Metamizole dosing. Lipase, Serumon 03-01-2021 Lipase [Catalytic activity/Vol] 14 U/L 9 - 82 [facility] 201 DO Work Phone: [phone] Comment on above: Venipuncture immedia tely after or during the administration of Metamizole may lead to falsely low results. Testing should be performed immediately prior to Metamizole dosing. Q-tbcyru-n-benzoquinone imine (metabolite of Acetaminophen) will generate erroneously low results in samples for patients that have taken toxic doses of acetaminophen. No Panel Informationon 03-01 [email or web address]?Ret rieveTestByDateTime?Patient [id number]&Date= 1&Time=12%3a02%3a53%3a00&Te stType=ECG&Site=11&OutputTy pe=PDF&Ext=PDF [facility] 201 DO Work Phone: Sinus bradycardia [facility] 201 DO Work Phone: Borderline Abnormal [facility] 201 DO Work Phone: [phone] [facility] 201 DO Work Phone: [phone] [facility] 201 DO Work Phone: [phone] [facility] 201 DO Work Phone: [phone] [facility] 201 DO Work Phone: [phone] [facility] 201 DO Work Phone: [phone] 1 [facility] 201 DO Work Phone: 17 1 [facility] 201 DO Work Phone: 15 1 [facility] 201 DO Work Phone: [phone] [facility] 201 DO Work Phone: [phone] [facility] 201 DO Work Phone: [phone] [facility] 201 DO Work Phone: [phone] [facility] 201 DO Work Phone: [phone] [facility] 201 DO Work Phone: [phone] [facility] 201 DO Work Phone: [email or web address]?Ret rieveTestByDateTime?Patient [id number]&Date= 1&Time=07%3a42%3a59%3a00&Te stType=ECG&Site=11&OutputTy pe=PDF&Ext=PDF [facility] 201 DO Work Phone: Sinus bradycardia [facility] 201 DO Work Phone: Borderline Abnormal [facility] 201 DO Work Phone: [phone] [facility] 201 DO Work Phone: [phone] [facility] 201 DO Work Phone: [phone] [facility] 201 DO Work Phone: [phone] [facility] 201 DO Work Phone: [phone] [facility] 201 DO Work Phone: 9 1 [facility] 201 DO Work Phone: 22 1 [facility] 201 DO Work Phone: 3 1 [facility] 201 DO Work Phone: [phone] [facility] 201 DO Work Phone: [phone] [facility] 201 DO Work Phone: [phone] [facility] 201 DO Work Phone: [phone] [facility] 201 DO Work Phone: [phone] [facility] 201 DO Work Phone: [phone] [facility] 201 DO Work Phone: [email or web address]?Ret rieveTestByDateTime?Patient [id number]&Date= 1&Time=06%3a10%3a27%3a00&Te stType=ECG&Site=11&OutputTy pe=PDF&Ext=PDF [facility] 201 DO Work Phone: Normal sinus rhythm [facility] 201 DO Work Phone: Abnormal [facility] 201 DO Work Phone: [phone] [facility] 201 DO Work Phone: [phone] [facility] 201 DO Work Phone: [phone] [facility] 201 DO Work Phone: [phone] [facility] 201 DO Work Phone: [phone] [facility] 201 DO Work Phone: 10 1 [facility] 201 DO Work Phone: 7 1 [facility] 201 DO Work Phone: 5 1 [facility] 201 DO Work Phone: 62 1 [facility] 201 DO Work Phone: [phone] [facility] 201 DO Work Phone: 78 1 [facility] 201 DO Work Phone: [phone] [facility] 201 DO Work Phone: 61 1 [facility] 201 DO Work Phone: >60 >60 [facility] 201 DO Work Phone: Comment on above: CALCULATIONS OF GWENDOLYN MATED GFR ARE PERFORMED USING THE MDRD STUDY EQUATION FOR THE IDMS-TRACEABLE CREATININE METHODS. CLIN CHEM 2007;53:766-72 Patient Profile - Adult v2on 03-01-2021 Patient Profile - Adult v2 Profile: Initial Info: How to be AddressedDebbie(1) Spoken Language PreferredEnglish (2) Source of Informationpatient Stated Reason for AdmissionPatient originally came in for abd. pain but started having chest pain in ultrasound s got admitted Wants Family/Rep Notified of Admissionn/a; family present Notify PCPnotify PCP Informed of Patient Visiting Rightsyes Arrived From[place] roy Patient Belongingsremains with patient Patient Belongings Remaining with Patientpurse/wallet; cell phone/electronics; clothing Medications Brought to Hospitalno General Health: Blood Avoidance/Restrictionsnone( 1) Previous Transfusion Reactionno(1) Weight in kg97 kilogram(s) Weight in rei269.8 pound(s) Weight Methodactual (measured) Scale Typebed Height in cm160 centimeter(s) Height in feet5 feet(3) Height in inches3 inch(es)(3) Height Methodstated BMI (kg/m2)37.89 square meter RSP Based Care: How would you like to participate in your careunable to answer What is the number one concern for you during this hospitalizationnot sure What is the most important thing we can do to support you during this hospitalizationhelp me Is there anything we need to know to best care for younothing Substance: Smoking Statusnever smoker (4) Alcohol Usedenies(4) Drug Usedenies (4) Drug 2 Usedenies (4) Health Mgmt: Symptoms/Conditions Managed at Homecardiovascular; endocrine; respiratory Are You no (4) Cardiovascular Symptoms/Conditionshyperten daniel Cardiovascular Management Strategiesmedication therapy Cardiovascular Managementmanaged Cardiovascular Symptoms/Conditions CommentStents x2 Endocrine Symptoms/Conditionsdiabetes Endocrine Management Strategiesblood glucose testing Endocrine Managementmanaged Endocrine Symptoms/Conditions Commenttesting a couple times per week Respiratory Symptoms/Conditionsasthma Respiratory Managementmanaged Relationship/Environ: Living Environment Commentssister will help after procedure(1) Resource/Environmental Concernsnone Primary Source of Support/Comfortsibling(s); significant other Lives Withparent(s) Living Arrangementshouse Services Anticipated at Transitionnone Anticipated Transition Tohome Significant IndicatorsComplete Information Review: Allergies, Home Meds and Significant Events have been Reviewed and Verified with Patient/Familyyes ALLERGY, INTOLERANCE, ADVERSE EVENT: Allergies: allopurinol: Drug, Hives/Urticaria, Active sulfa drugs: Drug Category, Hives/Urticaria, Active Electronic Signatures: Annita Wayne (RN) (Signed 01-Mar-2021 13:28) Authored: Initial Info, General Health, RSP Based Care, Substance, Health Mgmt, Relationship/Environ, Additional Information Last Updated: 01-Mar-2021 13:28 by Annita Wayne (RN) References: 1. Data Referenced From Patient Profile - Adult v2 31-Dec-2020 16:45 2. Data Referenced From Triage - ED 01-Mar-2021 05:20 3. Data Referenced From 1. Vital Signs 01-Mar-2021 05:20 4. Data Referenced From History and Physical 01-Mar-2021 11:46 Normal [facility] Provider Note - ED Care Carlos wakleron 03-01-2021 Provider Note - ED Care Transition ED Care Transition: Chart Review: ED NOTES ED NOTES: Patient was signed out to me pending ultrasound of the right upper quadrant and consultation with general surgery. While the patient was sent to the ultrasound she started having midsternal chest pain states that it felt like her heart attack,. Patient was sent back without getting the study done an EKG was done which showed a normal sinus rhythm heart rate of [address] changes, the first troponin was negative, at this time patient was given nitroglycerin morphine and because of her cardiac history admitted for chest pain. I did consult surgery and let them know that the patient's ultrasound was not done and at this time patient is can be admitted for medical chest pain for further treatment and stabilization of her condition. RESULTS/VITAL SIGNS RESULTS: Recent Lab Results: I have reviewed these laboratory results: Hepatic Function Panel 01-Mar-2021 05:46:00 ResultValue Aspartate Transaminase, Serum 30 ALB 4.0 T Bili 0.5 Bilirubin, Serum Direct - Conjugated 0.1 ALKP 120 H Alanine Aminotransferase, Serum 36 T Pro 6.9 Complete Blood Count + Differential 01-Mar-2021 05:46:00 ResultValue White Blood Cell Count 6.5 Red Blood Cell Count 4.40 HGB 13.3 HCT 41.8 MCV 95 MCHC 31.8 L PLT 231 RDW-CV 13.2 Neutrophil % 49.7 Immature Granulocytes % 0.2 Lymphocyte % 37.8 Monocyte % 7.1 Eosinophil % 4.0 Basophil % 1.2 Neutrophil Count 3.24 Lymphocyte Count 2.46 Monocyte Count 0.46 Eosinophil Count 0.26 Basophil Count 0.08 Basic Metabolic Panel 01-Mar-2021 05:46:00 ResultValue Glucose, Serum 140 H NA 140 K 3.9 CL 108 H Bicarbonate, Serum 24 Anion Gap, Serum 12 BUN 13 CREAT 0.87 GFR-Non >60 GFR- >60 Calcium, Serum 8.9 Lactate, Level 01-Mar-2021 05:46:00 ResultValue Lactate, Level 1.6 Lipase, Serum 01-Mar-2021 05:46:00 ResultValue Lipase, Serum 14 Troponin I, Serum 01-Mar-2021 05:46:00 ResultValue Troponin I, Serum <0.02 VITAL SIGNS: T PRBP SpO2O2(LPM) %FiO2 Method 01-Mar-2021 08:01:[id number] 98 room air, no respiratory support 01-Mar-2021 07:41:[id number] 98 room air, no respiratory support 01-Mar-2021 05:20:[id number]/77 98 room air, no respiratory support CLINICAL DECISION SUPPORT HEART SCORE HEART History: Moderately suspicious HEART ECG: Non specific repolarisation disturbance / LBTB / PM HEART Age: > 45 and < 65 HEART Risk Factors: Greater than or = to 3 risk factors or history of atherosclerotic diease HEART Troponin: Less than or = 1x the normal limit TOTAL HEART SCORE: 5 CLINICAL IMPRESSION Diagnosis/Annotation: ED Dx Name:Chest pain Code:R07.9 Disposition: hospitalized ATTESTATION CRITICAL CARE TIME Is this a critically ill patient: no Electronic Signatures: Emigdio Mckeon) (Signed 01-Mar-2021 08:08) Authored: ED Notes, Results/Vital Signs, CDS/Scales, Clinical Impression, Attestation, Chart Review, Scores Last Updated: 01-Mar-2021 08:08 by Emigdio Mckeon) [facility] Provider Note - ED v2on 02-11 Provider Note - ED v2 Provider Note - ED v2: Chart Review: HISTORY OF PRESENTING ILLNESS JOY is a 56 year old Female and was seen by me at 01-Mar-2021 05:27 for a chief complaint of post operative complication (c/o post op abd pain following hiatal hernia repair in December. pt states she had CT last week for same complaint..)(1). Triage Information: Most recent Vital Sign Value Date Temp (F): 98.4 03-01-2021 05:20 Temp (C): 36.9 03-01-2021 05:20 Heart Rate (beats/min): 63 03-01-2021 05:20 Respirations (breaths/min): 20 03-01-2021 05:20 SpO2 (%): 98 03-01-2021 05:20 BP Systolic (mm Hg): 158 03-01-2021 05:20 BP Diastolic (mm Hg): 77 03-01-2021 05:20 PAST MEDICAL HISTORY ATTESTATION: I have reviewed and confirmed nurse's/medic's notes for patient's medications, allergies, and medical, surgical, family and social history ALLERGIES/INTOLERANCES: Allergy Allergen: allopurinol Type: Drug Reaction: Hives/Urticaria Allergen: sulfa drugs Type: Drug Category Reaction: Hives/Urticaria HEALTH HISTORY: Medical History Name:S/P repair of paraesophageal hernia Code:Z98.890 OUTPATIENT MEDICATIONS: Home Medications Review Status for Reconciliation: N/A Med Status: Incomplete Medication History Drug Name: Bystolic 10 mg oral tablet Instructions: 2 tab(s) orally once a day in the morning-pt instructed to take on day of surgery Drug Name: Bystolic 10 mg oral tablet Instructions: 1 tab(s) orally once a day (at bedtime) Drug Name: ProAir HFA 90 mcg/inh inhalation aerosol Instructions: 2 puff(s) inhaled 4 times a day, As Needed-instructed to bring in on day of surgery, instructed ok to use AM of surgery Drug Name: pantoprazole 40 mg oral delayed release tablet Instructions: 1 tab(s) orally 2 times a day Drug Name: colchicine 0.6 mg oral tablet Instructions: 1 tab(s) orally once a day (at bedtime) Drug Name: Crestor 40 mg oral tablet Instructions: 1 tab(s) orally once a day (at bedtime) Drug Name: losartan 25 mg oral tablet Instructions: 1 tab(s) orally once a day (at bedtime) Drug Name: nitroglycerin 0.4 mg sublingual tablet Instructions: 1 tab(s) sublingual every 5 minutes, As Needed Drug Name: metFORMIN 500 mg oral tablet, extended release Instructions: orally 2 times a day Drug Name: aspirin 81 mg oral tablet Instructions: orally once a day Drug Name: Turmeric 500 mg oral capsule Instructions: 1 cap(s) orally once a day Drug Name: LORazepam 0.5 mg oral tablet Instructions: 1 tab(s) orally every 8 hours, As needed, Anxiety Drug Name: docusate sodium 100 mg oral capsule Instructions: 1 cap(s) orally 2 times a day Drug Name: simethicone 80 mg oral tablet, chewable Instructions: 1 tab(s) orally 4 times a day (after meals and at bedtime) Drug Name: Zofran 8 mg oral tablet Instructions: 1 tab(s) orally every 8 hours Drug Name: hydrocodone-acetaminophen 7.5 mg-325 mg oral tablet Instructions: 1 tab(s) orally every 4 hours, As needed, Pain - Mod (4-6) Drug Name: hydrocodone-acetaminophen 5 mg-325 mg oral tablet Instructions: 1 tab(s) orally every 4 hours x 3 days SIGNIFICANT EVENTS: Clinical Events Description:Surgical Procedure Additional Notes:1. Laparoscopic paraesophageal hernia repair with Toupet wrap; gastroscopy;2. ;3. ;4. ;5. 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) Is : no(1) RESULTS/VITAL SIGNS RESULTS: Recent Lab Results: I have reviewed these laboratory results: Hepatic Function Panel 01-Mar-2021 05:46:00 ResultValue Aspartate Transaminase, Serum 30 ALB 4.0 T Bili 0.5 Bilirubin, Serum Direct - Conjugated 0.1 ALKP 120 H Alanine Aminotransferase, Serum 36 T Pro 6.9 Complete Blood Count + Differential 01-Mar-2021 05:46:00 ResultValue White Blood Cell Count 6.5 Red Blood Cell Count 4.40 HGB 13.3 HCT 41.8 MCV 95 MCHC 31.8 L PLT 231 RDW-CV 13.2 Neutrophil % 49.7 Immature Granulocytes % 0.2 Lymphocyte % 37.8 Monocyte % 7.1 Eosinophil % 4.0 Basophil % 1.2 Neutrophil Count 3.24 Lymphocyte Count 2.46 Monocyte Count 0.46 Eosinophil Count 0.26 Basophil Count 0.08 Basic Metabolic Panel 01-Mar-2021 05:46:00 ResultValue Glucose, Serum 140 H NA 140 K 3.9 CL 108 H Bicarbonate, Serum 24 Anion Gap, Serum 12 BUN 13 CREAT 0.87 GFR-Non >60 GFR- >60 Calcium, Serum 8.9 Lactate, Level 01-Mar-2021 05:46:00 ResultValue Lactate, Level 1.6 Lipase, Serum 01-Mar-2021 05:46:00 ResultValue Lipase, Serum 14 Troponin I, Serum 01-Mar-2021 05:46:00 ResultValue Troponin I, Serum <0.02 VITAL SIGNS: T PRBP SpO2O2(LPM) %FiO2 Method 01-Mar-2021 05:20 (more content not included)... Normal [facility] Risk Screen - Adult Emergenc yon 03-01-2021 Risk Screen - Adult Emergency Preferred Language: Preferred Language: Preferred Language for Discussing Health Care (patient/designee)Chinese Advanced Directives: Advance Directive/DNRno Advance Directive Information Givenpatient/family declined Family Violence Adult: Abuse Screen: Are you or have you been threatened or abused physically, emotionally, or sexually by anyoneno Learning Assessment (Patient): Learning Assessment (Patient): Patient is Able to be Assessed for Learningyes Factors Influencing Readiness to Learnacuteness of illness Factors that Impact Ability to Learnnone Devices/Methods Used to Communicatenone Learning Preferencesverbal instruction; written material Cultural Considerationsnone Developmental Considerationsnone Rastafarian Considerationsnone Learning Assessment (Other Learner): Learning Assessment (Other Learner): Other learner availableno Pressure Injury/TB/Substance: Pressure Injury: Pressure Injury Present on Admissionno Do you have a coughno Smoking Statusnever smoker Alcohol Usedenies Drug Usedenies Drug 2 Usedenies Admission Risk Screen: Significant IndicatorsComplete CAGE: CAGE: Is this an injured patient at a Trauma Center ([facility]/[place]): no Electronic Signatures: Deanne John (RN) (Signed 01-Mar-2021 05:25) Authored: Preferred Language, Advanced Directives, Family Violence Adult, Learning Assessment (Patient), Learning Assessment (Other Learner), Pressure Injury/TB/Substance, Pressure Injury, CAGE Last Updated: 01-Mar-2021 05:25 by Deanne John (RN) Normal [facility] TROPONIN Ion 03-01-2021 Troponin I.cardiac [Mass/Vol] ng/mL Normal 0.00 - 0.03 [facility] Comment on above: Result Comment: LESS THAN 0.04 NG/ML: NEGATIVE REPEAT TESTING IN THREE TO SIX HOURS IF CLINICALLY INDICATED. 0.04 - 0.5 NG/ML: CONSISTENT WITH POSSIBLE CARDIAC DAMAGE AND POSSIBLE INCREASED CLINICAL RISK. SERIAL MEASUREMENTS MAY HELP ASSESS EXTENT OF MYOCARDIAL DAMAGE. >0.5 NG/ML: CONSISTENT WITH CARDIAC DAMAGE, INCREASED CLINICAL RISK AND MYOCARDIAL INFARCTION. SERIAL MEASUREMENTS MAY HELP ASSESS EXTENT OF MYOCARDIAL DAMAGE. . Note: Troponin I testing is performed using different testing methodology at [facility] than at other [facility]. Direct result comparisons should only be made within the same method. Performed By: #### M G #### [address] [id number] Troponin I.cardiac [Mass/Vol] ng/mL Normal 0.00 - 0.03 [facility] Comment on above: Result Comment: LESS THAN 0.04 NG/ML: NEGATIVE REPEAT TESTING IN THREE TO SIX HOURS IF CLINICALLY INDICATED. 0.04 - 0.5 NG/ML: CONSISTENT WITH POSSIBLE CARDIAC DAMAGE AND POSSIBLE INCREASED CLINICAL RISK. SERIAL MEASUREMENTS MAY HELP ASSESS EXTENT OF MYOCARDIAL DAMAGE. >0.5 NG/ML: CONSISTENT WITH CARDIAC DAMAGE, INCREASED CLINICAL RISK AND MYOCARDIAL INFARCTION. SERIAL MEASUREMENTS MAY HELP ASSESS EXTENT OF MYOCARDIAL DAMAGE. . Note: Troponin I testing is performed using different testing methodology at [facility] than at other [facility]. Direct result comparisons should only be made within the same method. Performed By: #### T ROP2 #### [address] [id number] Troponin I.cardiac [Mass/Vol] ng/mL Normal 0.00 - 0.03 [facility] Comment on above: Result Comment: LESS THAN 0.04 NG/ML: NEGATIVE REPEAT TESTING IN THREE TO SIX HOURS IF CLINICALLY INDICATED. 0.04 - 0.5 NG/ML: CONSISTENT WITH POSSIBLE CARDIAC DAMAGE AND POSSIBLE INCREASED CLINICAL RISK. SERIAL MEASUREMENTS MAY HELP ASSESS EXTENT OF MYOCARDIAL DAMAGE. >0.5 NG/ML: CONSISTENT WITH CARDIAC DAMAGE, INCREASED CLINICAL RISK AND MYOCARDIAL INFARCTION. SERIAL MEASUREMENTS MAY HELP ASSESS EXTENT OF MYOCARDIAL DAMAGE. . Note: Troponin I testing is performed using different testing methodology at [facility] than at other [facility]. Direct result comparisons should only be made within the same method. Performed By: #### T ROP2 #### [address] [id number] Triage - EDon 03-01-2021 Triage - ED Quick Triage: Are You no Have You Given In The Last 6 Weeksno Are You Currently Breastfeedingno The patient and/or guardian verbally acknowledges placement for services into the following (when Urgent Care Service hours are operating):emergency department Chart Review: PRIMARY ASSESSMENT JYO HAWTHORNE's primary assessment is Within Defined Limits. The airway is open and patent. Breathing spontaneous and unlabored with clear breath sounds bilaterally. Circulation is normal with good peripheral pulses. Skin is warm and dry and color is normal for race. ARRIVAL INFORMATION Means of Arrival: Ambulatory Mode of Arrival: private vehicle Arrival From: home Accompanied By: self Language: Spoken Language Preferred: Chinese Reading Language Preferred: Chinese Shipping Clerk Requested: no sales ambassador was requested MDRO: History of MDRO: no Present on Arrival: Device Present on Arrival to ED: no Pressure Ulcer Present on Arrival to ED: no CHIEF COMPLAINT JOY HAWTHORNE is a Female patient with a chief complaint of post operative complication (c/o post op abd pain following hiatal hernia repair in December. pt states she had CT last week for same complaint..). Triage Date/Time: 01-Mar-2021 05:20 MIRTA: 3 Pain Rating (0-10): 10 = Severe Vital Signs: Temperature: 98.4F ( 36.9C) Blood Pressure: 158/77 Mean: Heart Rate: 63 Respiratory Rate: 20 Pulse Oximetry: 98% on room air, no respiratory support. Height: 5 feet 3 inches. 160.0 CM Weight: 211.4 pounds. Calculated 95.9 kg. 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 Risk Screens Suicide Risk Screen In the Past Month: Have you wished you were or wished you could go to sleep and not wake up no In the Past Month: Have you had any actual thoughts of killing yourself no In Your Lifetime: Have you ever done anything, started to do anything, or prepared to do anything to end your life no Angelo Fall Scale Screening Has the patient fallen before (or is the patient in the ED as a result of a fall) has not had a fall Does the patient have an impaired gait does not have impaired gait Is the patient cognitively impaired not cognitively impaired Interventions: Angelo Fall Interventions: LOW INTERVENTIONS: *patient oriented to surroundings and call system, * patient/family falls education completed and documented, *patients fall status communicated during bedside handoff, *whiteboard updated, *mode of toileting discussed with patient, *bed in low position with brakes locked, *call light in reach, * non-skid footwear PAST MEDICAL HISTORY Immunization History: Last Known Tetanus Immunization: Greater than 5 years but less than 10 years TRAVEL HISTORY Travel History Coronavirus Screening: no exposure or symptoms Travel Exposure History: NO travel to International locations in the past 30 days PAIN Pain Scale Used: CT Pain Rating (0-10): 10 = Severe Past Medical History: Past Medical History Reviewedyes hiatal hernia repair: Past Surgical History, Active CARDIAC STENTS X 2: Past Surgical History, Active Cholecystectomy: Past Surgical History, Active Hysterectomy: Past Surgical History, Active Kidney stones: Past Medical History, Active HTN: Past Medical History, Active asthma: Past Medical History, Active Electronic Signatures: Deanne John (RN) (Signed 01-Mar-2021 05:24) Entered: Risk Screens, Pain, Arrival, ABCD, Immunizations, Travel History, Chart Review, Scores, Past Medical History Authored: Quick Triage, Risk Screens, Pain, Arrival, ABCD, Immunizations, Travel History, Chart Review, Scores, Past Medical History Last Updated: 01-Mar-2021 05:24 by Deanne John (SAMEER) Normal [facility] Troponin I, Serumon 03-01-20 21 Troponin I.cardiac [Mass/Vol] ng/mL See Below [facility] 201 DO Work Phone: Comment on above: Reference Range: 0.0 0 - 0.03LESS THAN 0.04 NG/ML: NEGATIVEREPEAT TESTING IN THREE TO SIX HOURSIF CLINICALLY INDICATED.0.04 - 0.5 NG/ML: CONSISTENT WITH POSSIBLECARDIAC DAMAGE AND POSSIBLE INCREASEDCLINICAL RISK.SERIAL MEASUREMENTS MAY HELP ASSESS EXTENT OFMYOCARDIAL DAMAGE.>0.5 NG/ML: CONSISTENT WITH CARDIAC DAMAGE,INCREASED CLINICAL RISK AND MYOCARDIALINFARCTION. SERIAL MEASUREMENTS MAY HELPASSESS EXTENT OF MYOCARDIAL DAMAGE..Note: Troponin I testing is performed using different testing methodology at [facility] than at other [facility]. Direct result comparisons should only be made within the same method. Troponin I.cardiac [Mass/Vol] ng/mL See Below [facility] 201 DO Work Phone: Comment on above: Reference Range: 0.0 0 - 0.03LESS THAN 0.04 NG/ML: NEGATIVEREPEAT TESTING IN THREE TO SIX HOURSIF CLINICALLY INDICATED.0.04 - 0.5 NG/ML: CONSISTENT WITH POSSIBLECARDIAC DAMAGE AND POSSIBLE INCREASEDCLINICAL RISK.SERIAL MEASUREMENTS MAY HELP ASSESS EXTENT OFMYOCARDIAL DAMAGE.>0.5 NG/ML: CONSISTENT WITH CARDIAC DAMAGE,INCREASED CLINICAL RISK AND MYOCARDIALINFARCTION. SERIAL MEASUREMENTS MAY HELPASSESS EXTENT OF MYOCARDIAL DAMAGE..Note: Troponin I testing is performed using different testing methodology at [facility] than at [facility]. Direct result comparisons should only be made within the same method. Troponin I.cardiac [Mass/Vol] ng/mL See Below [facility] 201 DO Work Phone: Comment on above: Reference Range: 0.0 0 - 0.03LESS THAN 0.04 NG/ML: NEGATIVEREPEAT TESTING IN THREE TO SIX HOURSIF CLINICALLY INDICATED.0.04 - 0.5 NG/ML: CONSISTENT WITH POSSIBLECARDIAC DAMAGE AND POSSIBLE INCREASEDCLINICAL RISK.SERIAL MEASUREMENTS MAY HELP ASSESS EXTENT OFMYOCARDIAL DAMAGE.>0.5 NG/ML: CONSISTENT WITH CARDIAC DAMAGE,INCREASED CLINICAL RISK AND MYOCARDIALINFARCTION. SERIAL MEASUREMENTS MAY HELPASSESS EXTENT OF MYOCARDIAL DAMAGE..Note: Troponin I testing is performed using different testing methodology at [facility] than at [facility]. Direct result comparisons should only be made within the same method. URINALYSISon 03-01-2021 Appearance (U) Canceled Normal [facility] Comment on above: Order Comment: TEST URINALYSIS WAS CANCELLED, 03/01/2021 11:35 NO SPECIMEN RECEIVED IN LAB(ER ORDER). Performed By: #### L IPAS #### [address] [phone] ASCORBIC ACID Canceled Normal [facility] Comment on above: Order Comment: TEST URINALYSIS WAS CANCELLED, 03/01/2021 11:35 NO SPECIMEN RECEIVED IN LAB(ER ORDER). Result Comment: Conc entrations > = 20 mg/dL of ascorbic acid can be expected to cause strong interference in the reactions testing for glucose, nitrite and blood. It is recommended to discontinue Vitamin C administration and retest in 10 hours. Performed By: #### L IPAS #### [address] [id number] Bilirubin Ql (U) Canceled Normal [facility] Comment on above: Order Comment: TEST URINALYSIS WAS CANCELLED, 03/01/2021 11:35 NO SPECIMEN RECEIVED IN LAB(ER ORDER). Performed By: #### L IPAS #### [address] [id number] Color (U) Canceled Normal [facility] Comment on above: Order Comment: TEST URINALYSIS WAS CANCELLED, 03/01/2021 11:35 NO SPECIMEN RECEIVED IN LAB(ER ORDER). Performed By: #### L IPAS #### [address] [id number] Glucose Ql (U) Canceled Normal [facility] Comment on above: Order Comment: TEST URINALYSIS WAS CANCELLED, 03/01/2021 11:35 NO SPECIMEN RECEIVED IN LAB(ER ORDER). Performed By: #### L IPAS #### [address] [id number] Hemoglobin Ql (U) Canceled Normal [facility] Comment on above: Order Comment: TEST URINALYSIS WAS CANCELLED, 03/01/2021 11:35 NO SPECIMEN RECEIVED IN LAB(ER ORDER). Performed By: #### L IPAS #### [address] [phone] Ketones Ql (U) Canceled Normal [facility] Comment on above: Order Comment: TEST URINALYSIS WAS CANCELLED, 03/01/2021 11:35 NO SPECIMEN RECEIVED IN LAB(ER ORDER). Performed By: #### L IPAS #### [address] [id number] Leukocyte esterase Test strip Ql (U) Canceled Normal [facility] Comment on above: Order Comment: TEST URINALYSIS WAS CANCELLED, 03/01/2021 11:35 NO SPECIMEN RECEIVED IN LAB(ER ORDER). Performed By: #### L IPAS #### [address] [id number] Nitrite Ql (U) Canceled Normal [facility] Comment on above: Order Comment: TEST URINALYSIS WAS CANCELLED, 03/01/2021 11:35 NO SPECIMEN RECEIVED IN LAB(ER ORDER). Performed By: #### L IPAS #### [address] [id number] pH Canceled Normal [facility] Comment on above: Order Comment: TEST URINALYSIS WAS CANCELLED, 03/01/2021 11:35 NO SPECIMEN RECEIVED IN LAB(ER ORDER). Performed By: #### L IPAS #### [address] [id number] Protein Ql (U) Canceled Normal [facility] Comment on above: Order Comment: TEST URINALYSIS WAS CANCELLED, 03/01/2021 11:35 NO SPECIMEN RECEIVED IN LAB(ER ORDER). Performed By: #### L IPAS #### [address] [id number] Specific gravity (U) [Rel density] Canceled Normal [facility] Comment on above: Order Comment: TEST URINALYSIS WAS CANCELLED, 03/01/2021 11:35 NO SPECIMEN RECEIVED IN LAB(ER ORDER). Performed By: #### L IPAS #### [address] [id number] UROBILINOGEN Canceled Normal [facility] Comment on above: Order Comment: TEST URINALYSIS WAS CANCELLED, 03/01/2021 11:35 NO SPECIMEN RECEIVED IN LAB(ER ORDER). Performed By: #### L IPAS #### [address] [id number] US RIGHT UPPER QUADRANTon US RIGHT UPPER QUADRANT STUD STUDY: Right Upper Quadrant Ultrasound; 03/01/20211913. INDICATION: Generalized abdominal pain. COMPARISON: CT A/P 02/22/2021. US RUQ 06/10/2019. ACCESSION NUMBER(S): [id number] ORDERING CLINICIAN: LUIS MIX MD TECHNIQUE: Ultrasound of the Right Upper Quadrant. Multiple images of the abdomen were obtained. FINDINGS: LIVER: The liver is diffusely echogenic with poor acoustic penetration. GALLBLADDER: The gallbladder is surgically absent. BILE DUCTS: The common bile duct measures 0.6 cm. There is no intrahepatic biliary dilatation. PANCREAS: The pancreas demonstrates a normal homogeneous echotexture with the tail not well seen due to overlying bowel gas. RIGHT KIDNEY: The right kidney measures 10.1 cm in length. Renal cortical echotexture is normal. There is no hydronephrosis. There are no stones. There are no cysts. IMPRESSION: Diffuse hepatic steatosis. Surgically absent gallbladder, No biliary dilatation. Signed by Montana Villanueva MD Electronically signed by: MONTANA VILLANUEVA MD Normal [facility] Ultrasound Right Upper Quadr aneesh 03-01-2021 Ultrasound Right Upper Quadrant Normal [facility] 201 DO Work Phone: CT [facility] P[facility] ABDOMEN AND PELVIS W IV CONTRAST STUDY: CT Abdomen and Pelvis with IV Contrast; 02/22/2021 10:01 AM INDICATION: Worsening left upper quadrant pain. Additional History: Laparoscopic Clemencia in December. Cholecystectomy. Hysterectomy. COMPARISON: CT AP 01/25/21, 06/12/19. ACCESSION NUMBER(S): [id number] ORDERING CLINICIAN: TINO SHAW MD TECHNIQUE: CT of the abdomen and pelvis was performed. Contiguous axial images were obtained at 3 mm slice thickness through the abdomen and pelvis. Coronal and sagittal reconstructions at 3 mm slice thickness were performed. Omnipaque 350 90 mL was administered intravenously. FINDINGS: LOWER CHEST: No cardiomegaly. No pericardial effusion. Lung bases are clear. ABDOMEN: LIVER: No hepatomegaly. Smooth surface contour. Normal attenuation. BILE DUCTS: No intrahepatic or extrahepatic biliary ductal dilatation. GALLBLADDER: The gallbladder is not visualized.. STOMACH: No abnormalities identified. PANCREAS: No masses or ductal dilatation. SPLEEN: No splenomegaly or focal splenic lesion. ADRENAL GLANDS: No thickening or nodules. KIDNEYS AND URETERS: Kidneys are normal in size and location. No renal or ureteral calculi. PELVIS: BLADDER: No abnormalities identified. REPRODUCTIVE ORGANS: Absent uterus. BOWEL: Normal air-filled appendix. Unremarkable terminal ileum. Moderate stool visualized within the ascending colon. Diverticular disease of the descending colon. No acute diverticulitis. VESSELS: No abnormalities identified. Abdominal aorta is normal in caliber. PERITONEUM/RETROPERITONEUM/ LYMPH NODES: No free fluid. No pneumoperitoneum. No lymphadenopathy. ABDOMINAL WALL: No abnormalities identified. SOFT TISSUES: No abnormalities identified. BONES: No acute fracture or aggressive osseous lesion. IMPRESSION: 1.\\X09\\Absent gallbladder. 2.\\X09\\Diverticulosis coli. No acute diverticulitis. 3.\\X09\\Absent uterus. 4.\\X09\\No acute intra-abdominal or pelvic finding. Signed by Kenneth Gutierrez MD Electronically signed by: KENNETH GUTIERREZ MD Normal [facility] CT Abdomen and Pelvis with I V Contraston 02-22-2021 CT Abdomen and Pelvis W contrast IV Normal [facility] 201 DO Work Phone: AMYLASEon 02-21-2021 Amylase [Catalytic activity/Vol] 30 U/L Normal 29 - 103 [facility] Comment on above: Performed By: #### A MY #### [facility] [address] [place], [place] [phone] Amylase, Serumon 02-21-2021 Amylase [Catalytic activity/Vol] 30 U/L 29 - 103 [facility] 201 DO Work Phone: CBCon 02-21-2021 Erythrocyte distribution width (RBC) [Ratio] 12.8 % Normal 11.5 - 14.5 [facility] Comment on above: Performed By: #### C BC ####[facility] [place], [place] [id number] Hematocrit (Bld) [Volume fraction] 41.9 % Normal 36.0 - 46.0 [facility] Comment on above: Performed By: #### C BC ####[facility] [place], [place] [id number] Hemoglobin (Bld) [Mass/Vol] 13.4 g/dL Normal 12.0 - 16.0 [facility] Comment on above: Performed By: #### C BC ####[facility] [place], [place] [id number] MCHC (RBC) [Mass/Vol] 32.0 g/dL Normal 32.0 - 36.0 [facility] Comment on above: Performed By: #### C BC ####[facility] [place], [place] [id number] MCV (RBC) [Entitic vol] 94 fL Normal 80 - 100 [facility] Comment on above: Performed By: #### C BC ####[facility] [place], [place] [id number] Platelets (Bld) [#/Vol] 232 10*3/uL Normal 150 - 450 [facility] Comment on above: Performed By: #### C BC ####[facility] [place], [place] [id number] RBC 4.45 x10E12/L Normal 4.00 - 5.20 [facility] Comment on above: Performed By: #### C BC ####[facility] [place], [place] [id number] WBC (Bld) [#/Vol] 6.3 10*3/uL Normal 4.4 - 11.3 [facility] Comment on above: Performed By: #### C BC ####[address] [id number] COMPREHENSIVE PANELon 2020 Albumin [Mass/Vol] 3.9 g/dL Normal 3.4 - 5.0 [facility] Comment on above: Performed By: #### C MP #### [address] [id number] ALP [Catalytic activity/Vol] 121 U/L High 33 - 110 [facility] Comment on above: Performed By: #### C MP #### [address] [id number] ALT [Catalytic activity/Vol] 47 U/L High 7 - 45 [facility] Comment on above: Result Comment: Anabel ents treated with Sulfasalazine may generate falsely decreased results for ALT. Performed By: #### C MP #### [address] [id number] Anion gap [Moles/Vol] 10 mmol/L Normal 10 - 20 [facility] Comment on above: Performed By: #### C MP #### [address] [id number] AST [Catalytic activity/Vol] 47 U/L High 9 - 39 [facility] Comment on above: Performed By: #### C MP #### [address] [id number] Bilirubin [Mass/Vol] 0.6 mg/dL Normal 0.0 - 1.2 [facility] Comment on above: Performed By: #### C MP #### [address] [id number] Calcium [Mass/Vol] 9.2 mg/dL Normal 8.6 - 10.3 [facility] Comment on above: Performed By: #### C MP #### [address] [id number] Chloride [Moles/Vol] 106 mmol/L Normal 98 - 107 [facility] Comment on above: Performed By: #### C MP #### [address] [id number] Creatinine [Mass/Vol] 0.82 mg/dL Normal 0.50 - 1.05 [facility] Comment on above: Performed By: #### C MP #### [address] [id number] GFR- AM. >60 Normal >60 [facility] Comment on above: Result Comment: CALC ULATIONS OF ESTIMATED GFR ARE PERFORMED USING THE MDRD STUDY EQUATION FOR THE IDMS-TRACEABLE CREATININE METHODS. CLIN CHEM 2007;53:766-72 Performed By: #### C MP #### [address] [id number] GFR-NON AM. >60 Normal >60 [facility] Comment on above: Performed By: #### C MP #### [address] [id number] Glucose [Mass/Vol] 118 mg/dL High 74 - 99 [facility] Comment on above: Performed By: #### C MP #### [address] [id number] HCO3 (Bld) [Moles/Vol] 29 mmol/L Normal 21 - 32 [facility] Comment on above: Performed By: #### C MP #### [facility] [address] [place], [place] [id number] Potassium [Moles/Vol] 3.9 mmol/L Normal 3.5 - 5.3 [facility] Comment on above: Performed By: #### C MP #### [facility] [address] [place], [place] [phone] Protein [Mass/Vol] 7.1 g/dL Normal 6.4 - 8.2 [facility] Comment on above: Performed By: #### C MP #### [facility] [address] [place], [place] [phone] Sodium [Moles/Vol] 141 mmol/L Normal 136 - 145 [facility] Comment on above: Performed By: #### C MP #### [address] [id number] Urea nitrogen [Mass/Vol] 11 mg/dL Normal 6 - 23 [facility] Comment on above: Performed By: #### C MP #### [address] [id number] Follow Up (General Surgery)o n 02-21-2021 Follow Up (General Surgery) Diagnoses/Problems H/O hiatal hernia (V12.79) (Z87.19) Left upper quadrant abdominal pain (789.02) (R10.12) Orders Left upper quadrant abdominal pain Amylase, Serum; Status:Active; Requested for:21Feb2021; Perform:Lab Services - Lab To Draw (Blood Test); Due:22May2021;Ordered; Stat; For:Left upper quadrant abdominal pain; Ordered By:Tino Shaw; Complete Blood Count; Status:Active; Requested for:21Feb2021; Perform:Lab Services - Lab To Draw (Blood Test); Due:22May2021;Ordered; Stat; For:Left upper quadrant abdominal pain; Ordered By:Tino Shaw; Comprehensive Metabolic Panel; Status:Active; Requested for:21Feb2021; Perform:Lab Services - Lab To Draw (Blood Test); Due:22May2021;Ordered; Stat; For:Left upper quadrant abdominal pain; Ordered By:Tino Shaw; CT Abdomen and Pelvis with IV Contrast; Status:Hold For - Scheduling; Requested for:[id number]; Perform:[facility]; Due:22May2021;Ordered; Stat; For:Left upper quadrant abdominal pain; Ordered By:Tino Shaw; Patient taking Metformin or Derivatives? : Yes Radiologist to Determine Optimal Study : Y What are the patient's signs and symptoms? : worsening LUQ pain; history of laparoscopic clemencia in December Lipase, Serum; Status:Active; Requested for:[id number]; Perform:Lab Services - Lab To Draw (Blood Test); Due:22May2021;Ordered; Stat; For:Left upper quadrant abdominal pain; Ordered By:Tino Shaw; Patient Discussion/Summary I will check blood work (CMP, Amylase, lipae and CBC) and CT scan to figure out the cause of the pain Provider Impressions 56-year-old patient who on December 31 underwent laparoscopic hiatal hernia repair with toupet wrap with persistent, worsening pain in the left upper quadrant since middle january. CT abd/pelvis scan on January 25 showed postsurgical changes with no evidence of hernia. I am concerned about the persistent and worsening pain. It is unclear the etiology. No history of diverticulitis in the past. No obvious hernia on physical exam. No association of pain with meal and resolved GERD symptoms. No nausea, vomiting, fevers or chills. History of laparoscopic cholecystectomy. I will obtain CT abdomen/pelvis with IV contrast given the worsening pain to rule out intra-abdominal processes. If the scan is unremarkable, she will need upper endoscopy. I will also order CBC, CMP, amylase and lipase to rule out biliary and pancreatic cause; all questions answered. Chief Complaint Patient is here today LUQ pain. History of Present [id number] patient who underwent laparoscopic repair of hiatal hernia with toupet wrap on December 31. She went to the ER on January 25 due to left upper quadrant pain over the [address] scan shows postsurgical changes. I saw her in follow-up. On my review of the CT scan, she was noted to have moderate colonic constipation; she was given MiraLAX and milk of magnesia and has been taking Miralax once daily. She is having at least one non-bloody bowel movement daily but still has the pain. Last week Sunday, the pain became excruciating, sharp, constant, 10 out of 10 radiating to the back. Also had similar excruciating pain on Sunday in the same location. Denies nausea vomiting, heartburn, acid reflux and dysphagia. 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) GERD (gastroesophageal reflux disease) (530.81) (K21.9) Gout (274.9) (M10.9) H/O hiatal hernia (V12.79) (Z87.19) Hiatal hernia (553.3) (K44.9) Hyperlipidemia (272.4) (E78.5) Left upper quadrant abdominal pain (789.02) (R10.12) Right flank pain (789.09) (R10.9) Right upper quadrant abdominal pain (789.01) (R10.11) S/P laparoscopic cholecystectomy (V45.89) (Z90.49) Surgical History History of Cholecystectomy laparoscopic History of Coronary artery stent placement History of Esophagogastroduodenoscopy History of Hysterectomy History of Paraesophageal hiatal hernia repair History of Right hemicolectomy Family History Family history of malignant neoplasm of colon (V16.0) (Z80.0) Mother: DX age 53, s/p chemo, colon surgery, living. Maternal grandmother: DX age 60's, s/p colon surgery, chemo and radiation, Family history of malignant neoplasm of colon (V16.0) (Z80.0) Mother: DX age 53, s/p chemo, colon surgery, living. Maternal grandmother: DX age 60's, s/p colon surgery, chemo and radiation, Family history of lung cancer (V16.1) (Z80.1) Family history of throat cancer (V16.0) (Z80.0) Family history of breast cancer (V16.3) (Z80.3) Social History Currently working Does not use illicit drugs (V49.89) (Z78.9) Never a s (more content not included)... Normal [facility] LIPASEon 02-21-2021 Lipase [Catalytic activity/Vol] 11 U/L Normal 9 - 82 [facility] Comment on above: Result Comment: Rosina puncture immediately after or during the administration of Metamizole may lead to falsely low results. Testing should be performed immediately prior to Metamizole dosing. Performed By: #### L IPAS ####[address] [place], [place] [id number] Laboratory - Chemistry and C hemistry - challengeon 02-21-2021 Albumin BCP dye [Mass/Vol] 3.9 g/dL 3.4 - 5.0 [facility] DO Work Phone: ALP [Catalytic activity/Vol] 121 U/L above high threshold 33 - 110 [facility] DO Work Phone: ALT With P-5'-P [Catalytic activity/Vol] 47 U/L above high threshold 7 - 45 [facility] DO Work Phone: Comment on above: Patients treated wit h Sulfasalazine may generate falsely decreased results for ALT. Anion gap [Moles/Vol] 10 mmol/L 10 - 20 [facility] DO Work Phone: AST With P-5'-P [Catalytic activity/Vol] 47 U/L above high threshold 9 - 39 [facility] DO Work Phone: Bilirubin [Mass/Vol] 0.6 mg/dL 0.0 - 1.2 [facility] DO Work Phone: Calcium [Mass/Vol] 9.2 mg/dL 8.6 - 10.3 -Madelin foster [facility] DO Work Phone: Chloride [Moles/Vol] 106 mmol/L 98 - 107 Zo walsh [facility] 201 DO Work Phone: CO2 [Moles/Vol] 29 mmol/L 21 - 32 [facility] DO Work Phone: Creatinine [Mass/Vol] 0.82 mg/dL See Below [facility] [place] 201 DO Work Phone: Comment on above: Reference Range: 0.5 0 - 1.05 Glucose [Mass/Vol] 118 mg/dL above high threshold 74 - 99 -[facility] 201 DO Work Phone: Potassium [Moles/Vol] 3.9 mmol/L 3.5 - 5.3 [facility] 201 DO Work Phone: Protein [Mass/Vol] 7.1 g/dL 6.4 - 8.2 -Madelin foster [facility] 201 DO Work Phone: Sodium [Moles/Vol] 141 mmol/L 136 - 145 -[facility] Work Phone: Urea nitrogen [Mass/Vol] 11 mg/dL 6 - 23 [facility] 201 DO Work Phone: Laboratory - Hematology and Cell countson 02-21-2021 Erythrocyte distribution width (RBC) [Ratio] 12.8 % See Below [facility] DO Work Phone: Comment on above: Reference Range: 11. 5 - 14.5 Hematocrit (Bld) [Volume fraction] 41.9 % See Below [facility] 201 DO Work Phone: Comment on above: Reference Range: 36. 0 - 46.0 Hemoglobin (Bld) [Mass/Vol] 13.4 g/dL See Below [facility] 201 DO Work Phone: Comment on above: Reference Range: 12. 0 - 16.0 MCHC (RBC) [Mass/Vol] 32.0 g/dL See Below [facility] 201 DO Work Phone: Comment on above: Reference Range: 32. 0 - 36.0 MCV (RBC) [Entitic vol] 94 fL 80 - 100 [facility] DO Work Phone: Platelets (Bld) [#/Vol] 232 10*3/uL 150 - 450 [facility] DO Work Phone: RBC (Bld) [#/Vol] 4.45 {x10E12/L} See Below [facility] DO Work Phone: Comment on above: Reference Range: 4.0 0 - 5.20 WBC (Bld) [#/Vol] 6.3 10*3/uL 4.4 - 11.3 [facility] DO Work Phone: Lipase, Serumon 02-21-2021 Lipase [Catalytic activity/Vol] 11 U/L 9 - 82 [facility] DO Work Phone: Comment on above: Venipuncture immedia tely after or during the administration of Metamizole may lead to falsely low results. Testing should be performed immediately prior to Metamizole dosing. No Panel Informationon 02-21 >60 >60 [facility] DO Work Phone: Comment on above: CALCULATIONS OF GWENDOLYN MATED GFR ARE PERFORMED USING THE MDRD STUDY EQUATION FOR THE IDMS-TRACEABLE CREATININE METHODS. CLIN CHEM 2007;53:766-72 Follow Up (General Surgery)o n 02-10-2021 Follow Up (General Surgery) Diagnoses/Problems H/O hiatal hernia (V12.79) (Z87.19) Patient Discussion/Summary Follow-up in 2 weeks; take another dose of Miralax this weekend; call if pain gets worse Provider Impressions Overall the patient continues to do well with her diet; denies nausea, vomiting, heartburn and and acid reflux. Still has the left upper quadrant pain over the incision especially with activities and with walking. I reassured her that on my physical exam and on the CT scan, there is no evidence incisional hernia or fluid collection. Will continue to monitor for now. She will follow up in 2 weeks. If the pain gets worse, I will repeat a CT abd/pelvis scan. Chief Complaint Patient here today for 1 month follow up. History of Present IllnessThe patient is here in follow-up. Left upper quadrant pain has improved after she took the laxative. It is currently at 4 out of 10 especially with movement. Denies nausea, vomiting, heartburn and acid reflux. Tolerating diet without any difficulty. 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) GERD (gastroesophageal reflux disease) (530.81) (K21.9) Gout (274.9) (M10.9) H/O hiatal hernia (V12.79) (Z87.19) Hiatal hernia (553.3) (K44.9) Hyperlipidemia (272.4) (E78.5) Right flank pain (789.09) (R10.9) Right upper quadrant abdominal pain (789.01) (R10.11) S/P laparoscopic cholecystectomy (V45.89) (Z90.49) Surgical History History of Cholecystectomy laparoscopic History of Coronary artery stent placement History of Esophagogastroduodenoscopy History of Hysterectomy History of Paraesophageal hiatal hernia repair History of Right hemicolectomy Family History Family history of malignant neoplasm of colon (V16.0) (Z80.0) Mother: DX age 53, s/p chemo, colon surgery, living. Maternal grandmother: DX age 60's, s/p colon surgery, chemo and radiation, Family history of malignant neoplasm of colon (V16.0) (Z80.0) Mother: DX age 53, s/p chemo, colon surgery, living. Maternal grandmother: DX age 60's, s/p colon surgery, chemo and radiation, Family history of lung cancer (V16.1) (Z80.1) Family history of throat cancer (V16.0) (Z80.0) Family history of breast cancer (V16.3) (Z80.3) Social History Currently working Does not use illicit drugs (V49.89) (Z78.9) Never a smoker No alcohol use Allergies allopurinol Recorded By: Linda Bernard; 01/08/2020 9:43:13 AM [facility] Recorded By: Linda Bernard; 06/12/2019 2:40:16 PM Current Meds Medication NameInstruction Bystolic 10 MG Oral Tablet2 TABLETS IN THE MORNING AND 1 AT BEDTIME. Colchicine 0.6 MG Oral TabletTAKE 1 TABLET DAILY DIRECTED. Gabapentin 300 MG Oral CapsuleTAKE 1 CAPSULE TWICE DAILY. Losartan Potassium 25 MG Oral TabletTAKE 1 TABLET DAILY DIRECTED. metFORMIN HCl ER 500 MG Oral Tablet Extended Release 24 HourTAKE 1 TABLET DAILY DIRECTED. Pantoprazole Sodium 40 MG Oral Tablet Delayed ReleaseTAKE 1 TABLET TWICE A DAY, 30 MINUTES BEFORE BREAKFAST AND DINNER ProAir HFA 108 (90 Base) MCG/ACT Inhalation Aerosol Solution Rosuvastatin Calcium 40 MG Oral TabletTAKE 1 TABLET DAILY. Tylenol TABS Vicodin TABS Vitals Vital Signs Recorded: 10Feb2021 09:13AM Heart Rate54 Zjhoxusu004 Grzegxvyq01 Height5 ft 3 in Vhwtqu409 lb BMI Oyqbjwtbzf19.73 kg/m2 BSA Calculated1.99 Physical Exam abd; soft, non-distended, dehydrator tender in over LUQ incision (improving) Signatures Electronically signed by : Tino Shaw MD; Feb 10 2021 10:04AM EST (Author) Normal [facility] Cult, Urineon 01-31-2021 Bacteria identified Cx Nom (U) [facility] [place] 201 DO Work Phone: Follow Up (General Surgery)o n 01-31-2021 Follow Up (General Surgery) Diagnoses/Problems H/O hiatal hernia (V12.79) (Z87.19) Orders H/O hiatal hernia Start: Gabapentin 300 MG Oral Capsule (Neurontin); TAKE 1 CAPSULE TWICE DAILY Rx By: Tino Shaw; Dispense: 10 Days ; #:20 Capsule; Refill: 0;For: H/O hiatal hernia; ZACHARY = N; Verified Transmission to [id number]; Last Updated By: Audrey Davis; 01/31/2021 9:47:50 AM Cult, Urine; Status:In Progress - Specimen/Data Collected; Done: 31Jan2021 Perform:Lab Services - Lab To Draw (Non-Blood Test); Due:[id number];Ordered; For:H/O hiatal hernia; Ordered By:Tino Shaw; Urinalysis; Status:In Progress - Specimen/Data Collected; Done: 31Jan2021 Perform:Lab Services - Lab To Draw (Non-Blood Test); Due:01May2021;Ordered; For:H/O hiatal hernia; Ordered By:Tino Shaw; Patient Discussion/Summary Take the Miralax (10 caps in prune juice); if no bowel movement in 2 hrs, repeat; take the Gabapentin for pain; I will check your urine for infection; followup in 2 wks Provider Impressions I have reviewed the labs and CT abdomen and pelvis done on January 25. On my review, moderate stool in right colon, no kidney stone and no acute intra-abdominal process. I recommended taking MiraLAX to help with the constipation and I will try Gabapentin for the pain. I will also do urine analysis and culture to rule out UTI. Follow up in 2 wks Chief Complaint Pt here for a ED fuv. Pt states she has pain right below the hernia repair site. History of Present Xcwhqnq65-geop-jol patient who underwent laparoscopic hiatal hernia repair with toupet wrap on January 01, 2020. She was doing well until 01/25/2021 when she developed sudden episode of excruciating, ripping type pain in the left upper quadrant and left flank prompting her to go to the ER. Labs were normal. CT abdomen/pelvis showed no acute intra-abdominal process (no hernia, infection or fluid collection). Though the pain is improving, it is still there. Denies nausea, vomiting, fevers and chills. Denies dysphagia. Denies pain and burning with urination. She reports non-bloody daily bowel movements. 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) GERD (gastroesophageal reflux disease) (530.81) (K21.9) Gout (274.9) (M10.9) H/O hiatal hernia (V12.79) (Z87.19) Hiatal hernia (553.3) (K44.9) Hyperlipidemia (272.4) (E78.5) Right flank pain (789.09) (R10.9) Right upper quadrant abdominal pain (789.01) (R10.11) S/P laparoscopic cholecystectomy (V45.89) (Z90.49) Surgical History History of Cholecystectomy laparoscopic History of Coronary artery stent placement History of Esophagogastroduodenoscopy History of Hysterectomy History of Paraesophageal hiatal hernia repair History of Right hemicolectomy Family History Family history of malignant neoplasm of colon (V16.0) (Z80.0) Mother: DX age 53, s/p chemo, colon surgery, living. Maternal grandmother: DX age 60's, s/p colon surgery, chemo and radiation, Family history of malignant neoplasm of colon (V16.0) (Z80.0) Mother: DX age 53, s/p chemo, colon surgery, living. Maternal grandmother: DX age 60's, s/p colon surgery, chemo and radiation, Family history of lung cancer (V16.1) (Z80.1) Family history of throat cancer (V16.0) (Z80.0) Family history of breast cancer (V16.3) (Z80.3) Social History Currently working Does not use illicit drugs (V49.89) (Z78.9) Never a smoker No alcohol use Allergies allopurinol Recorded By: Linda Bernard; 01/08/2020 9:43:13 AM [facility] Recorded By: Linda Bernard; 06/12/2019 2:40:16 PM Current Meds Medication NameInstruction Bystolic 10 MG Oral Tablet2 TABLETS IN THE MORNING AND 1 AT BEDTIME. Colchicine 0.6 MG Oral TabletTAKE 1 TABLET DAILY DIRECTED. Losartan Potassium 25 MG Oral TabletTAKE 1 TABLET DAILY DIRECTED. metFORMIN HCl ER 500 MG Oral Tablet Extended Release 24 HourTAKE 1 TABLET DAILY DIRECTED. Pantoprazole Sodium 40 MG Oral Tablet Delayed ReleaseTAKE 1 TABLET TWICE A DAY, 30 MINUTES BEFORE BREAKFAST AND DINNER ProAir HFA 108 (90 Base) MCG/ACT Inhalation Aerosol Solution Rosuvastatin Calcium 40 MG Oral TabletTAKE 1 TABLET DAILY. Tylenol TABS Vicodin TABS Vitals Vital Signs Recorded: 31Jan2021 09:08AM Heart Rate60 Ajpooqdt803 Tdyiepwyv88 Height5 ft 3 in Fytoxg948 lb 2 oz BMI Smqolgpeqt37.75 kg/m2 BSA Calculated1.99 Physical Exam abd: soft, non-distended, moderate tenderness in LUQ and left flank; healed incisions Signatures Electronically signed by : Tino Shaw MD; Jan 31 2021 10:54AM EST (Author) Normal [facility] MICROSCOPICon 01-31-2021 BACTERIA 1+ /HPF Abnormal [facility] Comment on above: Performed By: #### U AMIC #### [address] [id number] CA OXALATE CRYSTAL 3+ /HPF Abnormal [facility] Comment on above: Performed By: #### U AMIC #### [address] [id number] Mucus Ql (Urine sed) 2+ /LPF Normal [facility] Comment on above: Performed By: #### U AMIC #### [address] [id number] RBC NONE Normal 0-5 [facility] Comment on above: Performed By: #### U AMIC #### [address] [id number] SQUAMOUS EPITH. CELLS 10 /HPF Normal [facility] Comment on above: Performed By: #### U AMIC #### [address] [id number] WBC 4 /HPF Normal 0-5 [facility] Comment on above: Performed By: #### U AMIC #### [address] [id number] URINALYSISon 01-31-2021 Appearance (U) HAZY Normal CLEAR [facility] Comment on above: Performed By: #### U A #### [address] [id number] Bilirubin Ql (U) Negative Normal NEGATIVE [facility] Comment on above: Performed By: #### U A #### [address] [id number] Color (U) YELLOW Normal STRAW,YELL OW [facility] Comment on above: Performed By: #### U A #### [address] [id number] Glucose Ql (U) Negative Normal NEGATIVE [facility] Comment on above: Performed By: #### U A #### [address] [id number] Hemoglobin Ql (U) Negative Normal NEGATIVE [facility] Comment on above: Performed By: #### U A #### [address] [id number] Ketones Ql (U) Negative Normal NEGATIVE [facility] Comment on above: Performed By: #### U A #### [address] [id number] Leukocyte esterase Test strip Ql (U) Negative Normal NEGATIVE [facility] Comment on above: Performed By: #### U A #### [address] [id number] Nitrite Ql (U) Negative Normal NEGATIVE [facility] Comment on above: Performed By: #### U A #### [address] [id number] pH (U) 5.0 [pH] Normal 5.0 - 8.0 [facility] Comment on above: Performed By: #### U A #### [address] [id number] Protein Ql (U) 30 (1+) Abnormal NEGATIVE [facility] Comment on above: Performed By: #### U A #### [address] [id number] Specific gravity (U) [Rel density] 1.026 Normal 1.005 - 1.035 [facility] Comment on above: Performed By: #### U A #### [address] [id number] Urobilinogen (U) [Mass/Vol] mg/dL Normal 0.0 - 1.9 [facility] Comment on above: Performed By: #### U A #### [address] [id number] URINE CULTURE,BACTERIALon URINE CULTURE,BACTERIAL TEST URINE CULTURE,BACTERIAL WAS CANCELLED, 02/03/2021 13:31 [facility] have already been discarded 02/03/2021 13:31. PATIENT: JOY HAWTHORNE LOCATION: [facility] [place] BILL#: [id number] : 63 AGE: SEX: F ORDERED BY: TINO SHAW SOURCE: URINE COLLECTED: 01/31/21 10:42 ANTIBIOTICS AT MARCELA.: RECEIVED : SITE: Clean Catch/Voided R E S U L T S URINE CULTURE,BACTERIAL CANCELLED 02/03/21 13:31 Normal [facility] Comment on above: Performed By: #### U [facility] #### [facility] [address] [place] [address] Urinalysison 01-31-2021 Color (U) YELLOW See Below -[facility] [place] 201 DO Work Phone: Comment on above: Reference Range: STR AW,YELLOW Glucose Ql (U) Negative NEGATIVE [facility] [place] 201 DO Work Phone: Ketones Ql (U) Negative NEGATIVE [facility] [place] 201 DO Work Phone: Leukocyte esterase Test strip Ql (U) Negative NEGATIVE -[facility] 201 DO Work Phone: pH (U) 5.0 [pH] 5.0 - 8.0 [facility] [place] 201 DO Work Phone: Protein (U) [Mass/Vol] 30 (1+) Abnormal NEGATIVE -[facility] [place] 201 DO Work Phone: RBC (U) [#/Vol] Negative NEGATIVE -[facility] 201 DO Work Phone: Specific gravity (U) [Rel density] 1.026 1 See Below -[facility] [place] 201 DO Work Phone: Comment on above: Reference Range: 1.0 05 - 1.035 Urinalysis Negative NEGATIVE -[facility] [place] 201 DO Work Phone: Urinalysis <2.0 0.0 - 1.9 [facility] [place] 201 DO Work Phone: Urinalysis HAZY CLEAR -[facility] [place] 201 DO Work Phone: Urinalysis, Microscopicon Urinalysis, Microscopic 3+ Abnormal [facility] [place] 201 DO Work Phone: Urinalysis, Microscopic 2+ [facility] Work Phone: Urinalysis, Microscopic 1+ Abnormal [facility] [place] 201 DO Work Phone: Urinalysis, Microscopic 10 {/HPF} [facility] [facility] DO Work Phone: Urinalysis, Microscopic NONE 0-5 [facility] 201 DO Work Phone: Urinalysis, Microscopic 4 {/HPF} 0-5 [facility] 201 DO Work Phone: CT ABDOMEN AND PELVIS W IV C [facility] 01-26-2021 CT ABDOMEN AND PELVIS W IV CONTRAST STUDY: CT Abdomen and Pelvis with IV Contrast; 01/25/2021, 10:11 PM. INDICATION: Status post hiatal hernia repair 01/08 with abrupt left upper quadrant abdominal/chest pain. Evaluate for hiatal hernia perforation. COMPARISON: CT abdomen and pelvis 06/12/2019. US right upper quadrant 06/10/2019. ACCESSION NUMBER(S): [id number] ORDERING CLINICIAN: KATELYN EVANS MD TECHNIQUE: CT of the abdomen and pelvis was performed. Contiguous axial images were obtained at 3 mm slice thickness through the abdomen and pelvis. Coronal and sagittal reconstructions at 3 mm slice thickness were performed. Omnipaque 350 90 mL was administered intravenously. FINDINGS: LOWER CHEST: Cardiac size is normal. Moderate calcified coronary plaque is seen in the right coronary artery. No pericardial effusion. Lung bases are clear. ABDOMEN: LIVER: No hepatomegaly. Smooth surface contour. Normal attenuation. BILE DUCTS: No intrahepatic or extrahepatic biliary ductal dilatation. GALLBLADDER: Gallbladder is absent. STOMACH: No abnormalities identified. PANCREAS: No masses or ductal dilatation. SPLEEN: No splenomegaly or focal splenic lesion. ADRENAL GLANDS: No thickening or nodules. KIDNEYS AND URETERS: Kidneys are normal in size and location. No renal or ureteral calculi. PELVIS: BLADDER: No abnormalities identified. REPRODUCTIVE ORGANS: The patient is status post hysterectomy. No abnormalities identified. BOWEL: Appendix appears normal. Terminal ileum is unremarkable. There is evidence of prior rectosigmoid anastomosis. No abnormalities identified. VESSELS: No abnormalities identified. Abdominal aorta is normal in caliber. PERITONEUM/RETROPERITONEUM/ LYMPH NODES: No free fluid. No pneumoperitoneum. No lymphadenopathy. ABDOMINAL WALL: There is a small area of presumed scarring and fat stranding in the left upper quadrant abdominal wall which may represent sequela of patient's recent operative procedure. Mild skin thickening is noted. There is no abnormal fluid collection or evidence of recurrent hernia. BONES: No acute fracture or aggressive osseous lesion. Mild lower lumbar facet arthrosis is noted. IMPRESSION: No definite acute intra-abdominal pathology identified. Presumed postoperative changes are seen in the left upper quadrant abdominal wall with mild skin thickening and fat stranding, correlate with clinical exam for any possibility of superficial soft tissue infection. No evidence of abscess or recurrent hernia. Signed by Kassie Sims Electronically signed by: KASSIE SIMS MD Normal [facility] URINALYSISon 01-26-2021 Appearance (U) Canceled Normal [facility] Comment on above: Order Comment: TEST URINALYSIS WAS CANCELLED, 01/26/2021 08:56 PATIENT DISCHARGED. Performed By: #### T ROP2 #### [address] [id number] ASCORBIC ACID Canceled Normal [facility] Comment on above: Order Comment: TEST URINALYSIS WAS CANCELLED, 01/26/2021 08:56 PATIENT DISCHARGED. Result Comment: Conc entrations > = 20 mg/dL of ascorbic acid can be expected to cause strong interference in the reactions testing for glucose, nitrite and blood. It is recommended to discontinue Vitamin C administration and retest in 10 hours. Performed By: #### T ROP2 #### [address] [id number] Bilirubin Ql (U) Canceled Normal [facility] Comment on above: Order Comment: TEST URINALYSIS WAS CANCELLED, 01/26/2021 08:56 PATIENT DISCHARGED. Performed By: #### T ROP2 #### [address] [id number] Color (U) Canceled Normal [facility] Comment on above: Order Comment: TEST URINALYSIS WAS CANCELLED, 01/26/2021 08:56 PATIENT DISCHARGED. Performed By: #### T ROP2 #### [address] [id number] Glucose Ql (U) Canceled Normal [facility] Comment on above: Order Comment: TEST URINALYSIS WAS CANCELLED, 01/26/2021 08:56 PATIENT DISCHARGED. Performed By: #### T ROP2 #### [address] [id number] Hemoglobin Ql (U) Canceled Normal [facility] Comment on above: Order Comment: TEST URINALYSIS WAS CANCELLED, 01/26/2021 08:56 PATIENT DISCHARGED. Performed By: #### T ROP2 #### [address] [id number] Ketones Ql (U) Canceled Normal [facility] Comment on above: Order Comment: TEST URINALYSIS WAS CANCELLED, 01/26/2021 08:56 PATIENT DISCHARGED. Performed By: #### T ROP2 #### [address] [id number] Leukocyte esterase Test strip Ql (U) Canceled Normal [facility] Comment on above: Order Comment: TEST URINALYSIS WAS CANCELLED, 01/26/2021 08:56 PATIENT DISCHARGED. Performed By: #### T ROP2 #### [address] [id number] Nitrite Ql (U) Canceled Normal [facility] Comment on above: Order Comment: TEST URINALYSIS WAS CANCELLED, 01/26/2021 08:56 PATIENT DISCHARGED. Performed By: #### T ROP2 #### [address] [id number] pH Canceled Normal [facility] Comment on above: Order Comment: TEST URINALYSIS WAS CANCELLED, 01/26/2021 08:56 PATIENT DISCHARGED. Performed By: #### T ROP2 #### [address] [id number] Protein Ql (U) Canceled Normal [facility] Comment on above: Order Comment: TEST URINALYSIS WAS CANCELLED, 01/26/2021 08:56 PATIENT DISCHARGED. Performed By: #### T ROP2 #### [address] [id number] Specific gravity (U) [Rel density] Canceled Normal [facility] Comment on above: Order Comment: TEST URINALYSIS WAS CANCELLED, 01/26/2021 08:56 PATIENT DISCHARGED. Performed By: #### T ROP2 #### [address] [id number] UROBILINOGEN Canceled Normal [facility] Comment on above: Order Comment: TEST URINALYSIS WAS CANCELLED, 01/26/2021 08:56 PATIENT DISCHARGED. Performed By: #### T ROP2 #### [address] [id number] AMYLASEon 01-25-2021 Amylase [Catalytic activity/Vol] 33 U/L Normal 29 - 103 [facility] Comment on above: Performed By: #### L IPAS #### [address] [id number] APTTon 01-25-2021 aPTT Coag (Bld) [Time] 27 s Normal 25 - 35 [facility] Comment on above: Result Comment: THE APTT IS NO LONGER USED FOR MONITORING UNFRACTIONATED HEPARIN THERAPY. FOR MONITORING HEPARIN THERAPY, USE THE HEPARIN ASSAY. Performed By: #### B MP #### [address] [id number] Activated Partial Thrombopla stin Timeon 01-25-2021 aPTT Coag (PPP) [Time] 27 s 25 - 35 [facility] 201 DO Work Phone: Comment on above: THE APTT IS NO LONGE R USED FOR MONITORING UNFRACTIONATED HEPARIN THERAPY. FOR MONITORING HEPARIN THERAPY, USE THE HEPARIN ASSAY. Amylase, Serumon 01-25-2021 Amylase [Catalytic activity/Vol] 33 U/L 29 - 103 [facility] 201 DO Work Phone: CBC AND DIFFERENTIALon 01-25 % AUTOMATED IMMATURE GRAN 0.3 % Normal 0.0 - 0.9 [facility] Comment on above: Result Comment: [place] ture Granulocyte Count (IG) includes promyelocytes, myelocytes and metamyelocytes but does not include bands. Percent differential counts (%) should be interpreted in the context of the absolute cell counts (cells/L). Performed By: #### C BCDF #### [address] [id number] Basophils (Bld) [#/Vol] 0.10 10*3/uL Normal 0.00 - 0.10 [facility] Comment on above: Performed By: #### C BCDF #### [address] [id number] Eosinophils (Bld) [#/Vol] 0.26 10*3/uL Normal 0.00 - 0.70 [facility] Comment on above: Performed By: #### C BCDF #### [address] [id number] Eosinophils/100 WBC (Bld) 3.4 % Normal 0.0 - 6.0 [facility] Comment on above: Performed By: #### C BCDF #### [address] [id number] Lymphocytes (Bld) [#/Vol] 2.82 10*3/uL Normal 1.20 - 4.80 [facility] Comment on above: Performed By: #### C BCDF #### [address] [id number] Monocytes (Bld) [#/Vol] 0.54 10*3/uL Normal 0.10 - 1.00 [facility] Comment on above: Performed By: #### C BCDF #### [address] [id number] Neutrophils (Bld) [#/Vol] 3.89 10*3/uL Normal 1.20 - 7.70 [facility] Comment on above: Performed By: #### C BCDF #### [address] [id number] RBC 4.16 x10E12/L Normal 4.00 - 5.20 [facility] Comment on above: Performed By: #### C BCDF #### [address] [id number] COMPREHENSIVE PANELon 2020 Albumin [Mass/Vol] 4.1 g/dL Normal 3.4 - 5.0 [facility] Comment on above: Performed By: #### T ROP2 #### [address] [id number] ALP [Catalytic activity/Vol] 123 U/L High 33 - 110 [facility] Comment on above: Performed By: #### T ROP2 #### [address] [id number] ALT [Catalytic activity/Vol] 37 U/L Normal 7 - 45 [facility] Comment on above: Result Comment: Anabel ents treated with Sulfasalazine may generate falsely decreased results for ALT. Performed By: #### T ROP2 #### [address] [id number] Anion gap [Moles/Vol] 11 mmol/L Normal 10 - 20 [facility] Comment on above: Performed By: #### T ROP2 #### [address] [id number] AST [Catalytic activity/Vol] 29 U/L Normal 9 - 39 [facility] Comment on above: Performed By: #### T ROP2 #### [address] [id number] Bilirubin [Mass/Vol] 0.4 mg/dL Normal 0.0 - 1.2 [facility] Comment on above: Performed By: #### T ROP2 #### [address] [id number] Calcium [Mass/Vol] 9.0 mg/dL Normal 8.6 - 10.3 [facility] Comment on above: Performed By: #### T ROP2 #### [address] [id number] Chloride [Moles/Vol] 108 mmol/L High 98 - 107 [facility] Comment on above: Performed By: #### T ROP2 #### [address] [id number] Creatinine [Mass/Vol] 0.91 mg/dL Normal 0.50 - 1.05 [facility] Comment on above: Performed By: #### T ROP2 #### [address] [id number] GFR- AM. >60 Normal >60 [facility] Comment on above: Result Comment: CALC ULATIONS OF ESTIMATED GFR ARE PERFORMED USING THE MDRD STUDY EQUATION FOR THE IDMS-TRACEABLE CREATININE METHODS. CLIN CHEM 2007;53:766-72 Performed By: #### T ROP2 #### [address] [id number] GFR-NON AM. >60 Normal >60 [facility] Comment on above: Performed By: #### T ROP2 #### [address] [id number] Glucose [Mass/Vol] 153 mg/dL High 74 - 99 [facility] Comment on above: Performed By: #### T ROP2 #### [address] [id number] HCO3 (Bld) [Moles/Vol] 27 mmol/L Normal 21 - 32 [facility] Comment on above: Performed By: #### T ROP2 #### [address] [id number] Potassium [Moles/Vol] 3.7 mmol/L Normal 3.5 - 5.3 [facility] Comment on above: Performed By: #### T ROP2 #### [address] [id number] Protein [Mass/Vol] 6.7 g/dL Normal 6.4 - 8.2 [facility] Comment on above: Performed By: #### T ROP2 #### [address] [id number] Sodium [Moles/Vol] 142 mmol/L Normal 136 - 145 [facility] Comment on above: Performed By: #### T ROP2 #### [address] [id number] Urea nitrogen [Mass/Vol] 14 mg/dL Normal 6 - 23 [facility] Comment on above: Performed By: #### T ROP2 #### [address] [id number] CREATINE KINASEon 01-25-2021 CK [Catalytic activity/Vol] 101 U/L Normal 0 - 215 [facility] Comment on above: Performed By: #### B MP #### [address] [id number] [address] Abdomen and Pelvis with I V Contraston 01-25-2021 CT Abdomen and Pelvis W contrast IV Normal [facility] 201 DO Work Phone: Complete Blood Count + Diffe rentialon 01-25-2021 Basophils/100 WBC (Bld) 1.3 % Normal 0.0 - 2.0 [facility] 201 DO Work Phone: Comment on above: Performed By: #### C BCDF #### [address] [id number] Erythrocyte distribution width (RBC) [Ratio] 12.3 % Normal 11.5 - 14.5 [facility] 201 DO Work Phone: Comment on above: Reference Range: 11. 5 - 14.5 Performed By: #### C BCDF #### [address] [id number] Hematocrit (Bld) [Volume fraction] 38.7 % Normal 36.0 - 46.0 [facility] 201 DO Work Phone: Comment on above: Reference Range: 36. 0 - 46.0 Performed By: #### C BCDF #### [address] [id number] Hemoglobin (Bld) [Mass/Vol] 12.4 g/dL Normal 12.0 - 16.0 [facility] 201 DO Work Phone: Comment on above: Reference Range: 12. 0 - 16.0 Performed By: #### C BCDF #### [address] [id number] Lymphocytes/100 WBC (Bld) 37.0 % Normal 13.0 - 44.0 [facility] 201 DO Work Phone: Comment on above: Reference Range: 13. 0 - 44.0 Performed By: #### C BCDF #### [address] [id number] MCHC (RBC) [Mass/Vol] 32.0 g/dL Normal 32.0 - 36.0 [facility] 201 DO Work Phone: Comment on above: Reference Range: 32. 0 - 36.0 Performed By: #### C BCDF #### [address] [id number] MCV (RBC) [Entitic vol] 93 fL Normal 80 - 100 [facility] 201 DO Work Phone: Comment on above: Performed By: #### C BCDF #### [address] [id number] Monocytes/100 WBC (Bld) 7.1 % Normal 2.0 - 10.0 [facility] 201 DO Work Phone: Comment on above: Performed By: #### C BCDF #### [address] [id number] Neutrophils/100 WBC (Bld) 50.9 % Normal 40.0 - 80.0 [facility] 201 DO Work Phone: Comment on above: Reference Range: 40. 0 - 80.0 Performed By: #### C BCDF #### [address] [id number] Platelets (Bld) [#/Vol] 243 10*3/uL Normal 150 - 450 [facility] 201 DO Work Phone: Comment on above: Performed By: #### C BCDF #### [address] [id number] RBC (Bld) [#/Vol] 4.16 {x10E12/L} See Below [facility] 201 DO Work Phone: Comment on above: Reference Range: 4.0 0 - 5.20 WBC (Bld) [#/Vol] 7.6 10*3/uL Normal 4.4 - 11.3 [facility] 201 DO Work Phone: Comment on above: Performed By: #### C BCDF #### [address] [id number] Complete Blood Count + Differential 0.10 {x10E9/L} See Below [facility] 201 DO Work Phone: Comment on above: Reference Range: 0.0 0 - 0.10 Complete Blood Count + Differential 0.26 {x10E9/L} See Below [facility] 201 DO Work Phone: Comment on above: Reference Range: 0.0 0 - 0.70 Complete Blood Count + Differential 0.54 {x10E9/L} See Below [facility] 201 DO Work Phone: Comment on above: Reference Range: 0.1 0 - 1.00 Complete Blood Count + Differential 2.82 {x10E9/L} See Below [facility] 201 DO Work Phone: Comment on above: Reference Range: 1.2 0 - 4.80 Complete Blood Count + Differential 3.89 {x10E9/L} See Below [facility] 201 DO Work Phone: Comment on above: Reference Range: 1.2 0 - 7.70 Complete Blood Count + Differential 3.4 % 0.0 - 6.0 [facility] DO Work Phone: Complete Blood Count + Differential 0.3 % 0.0 - 0.9 [facility] DO Work Phone: Comment on above: Immature Granulocyte Count (IG) includes promyelocytes, myelocytes and metamyelocytes but does not include bands. Percent differential counts (%) should be interpreted in the context of the absolute cell counts (cells/L). Creatine Kinase, Levelon CK [Catalytic activity/Vol] 101 U/L 0 - 215 [place] [address] DO Work Phone: LACTATEon 01-25-2021 Lactate [Moles/Vol] 1.1 mmol/L Normal 0.4 - 2.0 [facility] Comment on above: Result Comment: Rosina puncture immediately after or during the administration of Metamizole may lead to falsely low results. Testing should be performed immediately prior to Metamizole dosing. Performed By: #### B MP #### [address] [id number] LIPASEon 01-25-2021 Lipase [Catalytic activity/Vol] 22 U/L Normal 9 - 82 [facility] Comment on above: Result Comment: Rosina puncture immediately after or during the administration of Metamizole may lead to falsely low results. Testing should be performed immediately prior to Metamizole dosing. P-cykdgg-v-benzoquinone imine (metabolite of Acetaminophen) will generate erroneously low results in samples for patients that have taken toxic doses of acetaminophen. Performed By: #### L IPAS #### [address] [id number] Laboratory - Chemistry and C hemistry - challengeon 01-25-2021 Albumin BCP dye [Mass/Vol] 4.1 g/dL 3.4 - 5.0 [facility] DO Work Phone: ALP [Catalytic activity/Vol] 123 U/L above high threshold 33 - 110 [facility] 201 DO Work Phone: ALT With P-5'-P [Catalytic activity/Vol] 37 U/L 7 - 45 [facility] 201 DO Work Phone: Comment on above: Patients treated wit h Sulfasalazine may generate falsely decreased results for ALT. Anion gap [Moles/Vol] 11 mmol/L 10 - 20 [facility] 201 DO Work Phone: AST With P-5'-P [Catalytic activity/Vol] 29 U/L 9 - 39 [facility] 201 DO Work Phone: Bilirubin [Mass/Vol] 0.4 mg/dL 0.0 - 1.2 [facility] DO Work Phone: Calcium [Mass/Vol] 9.0 mg/dL 8.6 - 10.3 [facility] 201 DO Work Phone: Chloride [Moles/Vol] 108 mmol/L above high threshold 98 - 107 [facility] 201 DO Work Phone: CO2 [Moles/Vol] 27 mmol/L 21 - 32 [facility] 201 DO Work Phone: Creatinine [Mass/Vol] 0.91 mg/dL See Below [facility] 201 DO Work Phone: Comment on above: Reference Range: 0.5 0 - 1.05 Glucose [Mass/Vol] 153 mg/dL above high threshold 74 - 99 [facility] 201 DO Work Phone: Potassium [Moles/Vol] 3.7 mmol/L 3.5 - 5.3 [facility] 201 DO Work Phone: Protein [Mass/Vol] 6.7 g/dL 6.4 - 8.2 [facility] 201 DO Work Phone: Sodium [Moles/Vol] 142 mmol/L 136 - 145 Leslie foster [facility] DO Work Phone: Urea nitrogen [Mass/Vol] 14 mg/dL 6 - 23 [facility] DO Work Phone: Laboratory - Coagulationon 0 01-25-2021 INR Coag (PPP) [Relative time] 1.0 {INR} 0.9 - 1.1 [facility] DO Work Phone: PT Coag (PPP) [Time] 11.2 s See Below WILFRED walsh [facility] DO Work Phone: Comment on above: Reference Range: 10. 1 - 13.3 Lactate, Levelon 01-25-2021 Lactate [Moles/Vol] 1.1 mmol/L 0.4 - 2.0 [place] [address] DO Work Phone: Comment on above: Venipuncture immedia tely after or during the administration of Metamizole may lead to falsely low results. Testing should be performed immediately prior to Metamizole dosing. Lipase, Serumon 01-25-2021 Lipase [Catalytic activity/Vol] 22 U/L 9 - 82 [facility] DO Work Phone: Comment on above: Venipuncture immedia tely after or during the administration of Metamizole may lead to falsely low results. Testing should be performed immediately prior to Metamizole dosing. B-wknypn-y-benzoquinone imine (metabolite of Acetaminophen) will generate erroneously low results in samples for patients that have taken toxic doses of acetaminophen. No Panel Informationon 01-25 >60 >60 [place] [address] DO Work Phone: Comment on above: CALCULATIONS OF GWENDOLYN MATED GFR ARE PERFORMED USING THE MDRD STUDY EQUATION FOR THE IDMS-TRACEABLE CREATININE METHODS. CLIN CHEM 2007;53:766-72 [email or web address]?Ret [email or web address]?Patient FR=[id number]&Date= 1&Time=20%3a44%3a30%3a00&Te stType=ECG&Site=11&OutputTy pe=PDF&Ext=PDF [facility] DO Work Phone: Normal sinus rhythm [facility] DO Work Phone: Abnormal [facility] DO Work Phone: [phone] [facility] DO Work Phone: [phone] [facility] DO Work Phone: [phone] [facility] DO Work Phone: 151 1 [facility] DO Work Phone: [phone] [facility] DO Work Phone: 11 1 [facility] DO Work Phone: 45 1 [facility] DO Work Phone: 5 1 [facility] DO Work Phone: 82 1 [facility] DO Work Phone: [phone] 1 [facility] DO Work Phone: [phone] 1 [facility] DO Work Phone: 80 1 [facility] DO Work Phone: 144 1 [facility] DO Work Phone: 71 1 [facility] DO Work Phone: PT/INRon 01-25-2021 PT Coag (PPP) [Time] 11.2 s Normal 10.1 - 13.3 [facility] Comment on above: Performed By: #### B MP #### [address] [id number] PT, INR 1.0 Normal 0.9 - 1.1 [facility] Comment on above: Performed By: #### B MP #### [address] [id number] Provider Note - ED v2on 01-11 Provider Note - ED v2 Provider Note - ED v2: Chart Review: HISTORY OF PRESENTING ILLNESS JOY is a 55 year old Female and was seen by me at 25-Jan-2021 20:18 for a chief complaint of post operative complication (pt states she had a hernia repaired January 01 and today noticed increased pain and a ripping sensation for the past 2-3 hours)(1). The historian is the patient. Additional Details: Chief complaint abdominal pain History of present illness 55-year-old female who recently had a hiatal hernia repair done January 08. She is having left upper quadrant abdominal pain radiating to the back and into the chest onset 24 to 48 hours ago progressively getting worse feels a ripping-like sensation. Moderate severe. She is here triaged to room 4 she denies denies hemoptysis hematemesis hematochezia or melena. Denies pleuritic chest pain Is here with a blood pressure 167/90 pulse of 102 respirate is 18 pulse ox 90% temp 98 4 Triage Information: Most recent Vital Sign Value Date Temp (F): 98.4 01-25-2021 19:48 Temp (C): 36.9 01-25-2021 19:48 Heart Rate (beats/min): 102 01-25-2021 19:48 Respirations (breaths/min): 18 01-25-2021 19:48 SpO2 (%): 98 01-25-2021 19:48 BP Systolic (mm Hg): 167 01-25-2021 19:48 BP Diastolic (mm Hg): 90 01-25-2021 19:48 PAST MEDICAL HISTORY ATTESTATION: I have reviewed and confirmed nurse's/medic's notes for patient's medications, allergies, and medical, surgical, family and social history ALLERGIES/INTOLERANCES: Allergy Allergen: allopurinol Type: Drug Reaction: Hives/Urticaria Allergen: sulfa drugs Type: Drug Category Reaction: Hives/Urticaria HEALTH HISTORY: Medical History Name:S/P repair of paraesophageal hernia Code:Z98.890 OUTPATIENT MEDICATIONS: Home Medications Review Status for Reconciliation: Incomplete Med Status: Incomplete Medication History Drug Name: Bystolic 10 mg oral tablet Instructions: 2 tab(s) orally once a day in the morning-pt instructed to take on day of surgery Drug Name: Bystolic 10 mg oral tablet Instructions: 1 tab(s) orally once a day (at bedtime) Drug Name: ProAir HFA 90 mcg/inh inhalation aerosol Instructions: 2 puff(s) inhaled 4 times a day, As Needed-instructed to bring in on day of surgery, instructed ok to use AM of surgery Drug Name: pantoprazole 40 mg oral delayed release tablet Instructions: 1 tab(s) orally 2 times a day Drug Name: colchicine 0.6 mg oral tablet Instructions: 1 tab(s) orally once a day (at bedtime) Drug Name: Crestor 40 mg oral tablet Instructions: 1 tab(s) orally once a day (at bedtime) Drug Name: losartan 25 mg oral tablet Instructions: 1 tab(s) orally once a day (at bedtime) Drug Name: nitroglycerin 0.4 mg sublingual tablet Instructions: 1 tab(s) sublingual every 5 minutes, As Needed Drug Name: metFORMIN 500 mg oral tablet, extended release Instructions: orally 2 times a day Drug Name: aspirin 81 mg oral tablet Instructions: orally once a day Drug Name: Turmeric 500 mg oral capsule Instructions: 1 cap(s) orally once a day Drug Name: LORazepam 0.5 mg oral tablet Instructions: 1 tab(s) orally every 8 hours, As needed, Anxiety Drug Name: docusate sodium 100 mg oral capsule Instructions: 1 cap(s) orally 2 times a day Drug Name: simethicone 80 mg oral tablet, chewable Instructions: 1 tab(s) orally 4 times a day (after meals and at bedtime) Drug Name: Zofran 8 mg oral tablet Instructions: 1 tab(s) orally every 8 hours Drug Name: hydrocodone-acetaminophen 7.5 mg-325 mg oral tablet Instructions: 1 tab(s) orally every 4 hours, As needed, Pain - Mod (4-6) SIGNIFICANT EVENTS: Clinical Events Description:Surgical Procedure Additional Notes:1. Laparoscopic paraesophageal hernia repair with Toupet wrap; gastroscopy;2. ;3. ;4. ;5. 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 : no(1) Is : no(1) REVIEW OF SYSTEMS All other systems reviewed and are negative RESULTS/VITAL SIGNS RESULTS: Recent Lab Results: I have reviewed these laboratory results: Complete Blood Count + Differential 25-Jan-2021 20:50:00 ResultValue White Blood Cell Count 7.6 Red Blood Cell Count 4.16 HGB 12.4 HCT 38.7 MCV 93 MCHC 32.0 PLT 243 RDW-CV 12.3 Neutrophil % 50.9 Immature Granulocytes % 0.3 Lymphocyte % 37.0 Monocyte % 7.1 Eosinophil % 3.4 Basophil % 1.3 Neutrophil Count 3.89 Lymphocyte Count 2.82 Monocyte Count 0.54 Eosinophil Count 0.26 Basophil Count 0.10 PT + INR, Plasma 25-Jan-2021 20:50:00 ResultValue Prothrombin Time, Plasma 11.2 International Normalized Ratio, Plasma 1.0 Comprehensive Metabolic Panel 25-Jan-2021 20:50:00 ResultValue Glucose, Serum 153 H NA 142 (more content not included)... Normal [facility] Risk Screen - Adult Emergenc yon 01-25-2021 Risk Screen - Adult Emergency Preferred Language: Preferred Language: Preferred Language for Discussing Health Care (patient/designee)Chinese Advanced Directives: Advance Directive/DNRno Family Violence Adult: Abuse Screen: Are you or have you been threatened or abused physically, emotionally, or sexually by anyoneno Learning Assessment (Patient): Learning Assessment (Patient): Patient is Able to be Assessed for Learningyes Factors Influencing Readiness to Learnacuteness of illness Factors that Impact Ability to Learnnone Devices/Methods Used to Communicatenone Learning Preferencesaudio Cultural Considerationsnone Developmental Considerationsnone Rastafarian Considerationsnone Learning Assessment (Other Learner): Learning Assessment (Other Learner): Other learner availableno Pressure Injury/TB/Substance: Pressure Injury: Pressure Injury Present on Admissionno Do you have a coughno Substance Use Current or Former Historynever: Cigarette/Tobacco, e-Cigarette/Vaping, Alcohol, Street Drugs Admission Risk Screen: Significant IndicatorsComplete CAGE: CAGE: Is this an injured patient at a Trauma Center ([facility]/[place]): no Electronic Signatures: Alexsander Nieto (RN) (Signed 25-Jan-2021 20:51) Authored: Preferred Language, Advanced Directives, Family Violence Adult, Learning Assessment (Patient), Learning Assessment (Other Learner), Pressure Injury/TB/Substance, Pressure Injury, CAGE Last Updated: 25-Jan-2021 20:51 by Alexsander Nieto (RN) Normal [facility] TROPONIN Ion 01-25-2021 Troponin I.cardiac [Mass/Vol] ng/mL Normal 0.00 - 0.03 [facility] Comment on above: Result Comment: LESS THAN 0.04 NG/ML: NEGATIVE REPEAT TESTING IN THREE TO SIX HOURS IF CLINICALLY INDICATED. 0.04 - 0.5 NG/ML: CONSISTENT WITH POSSIBLE CARDIAC DAMAGE AND POSSIBLE INCREASED CLINICAL RISK. SERIAL MEASUREMENTS MAY HELP ASSESS EXTENT OF MYOCARDIAL DAMAGE. >0.5 NG/ML: CONSISTENT WITH CARDIAC DAMAGE, INCREASED CLINICAL RISK AND MYOCARDIAL INFARCTION. SERIAL MEASUREMENTS MAY HELP ASSESS EXTENT OF MYOCARDIAL DAMAGE. . Note: Troponin I testing is performed using different testing methodology at [facility] than at other [facility]. Direct result comparisons should only be made within the same method. Performed By: #### B #### [address] [id number] Triage - EDon 01-25-2021 Triage - ED Quick Triage: Are You no Have You Given In The Last 6 Weeksno Are You Currently Breastfeedingno Chart Review: ARRIVAL INFORMATION Mode of Arrival: private vehicle CHIEF COMPLAINT JOY HAWTHORNE is a Female patient with a chief complaint of post operative complication (pt states she had a hernia repaired January 01 and today noticed increased pain and a ripping sensation for the past 2-3 hours). Triage Date/Time: 25-Jan-2021 19:48 MIRTA: 3 Vital Signs: Temperature: 98.4F ( 36.9C) Blood Pressure: 167/90 Mean: Heart Rate: 102 Respiratory Rate: 18 Pulse Oximetry: 98% Height: 5 feet 3 inches. 160.0 CM Weight: 220.4 pounds. Calculated 100.0 kg. Calculated BMI (kg/m2): 39.062 Calculated BSA (m2) 2.11 Lott Coma Scale: Best Eye Response: (E4) spontaneous Best Motor Response: (M6) obeys commands Best Verbal Response: (V5) oriented Emy Score: 15 Allergies: yes Patient has homicidal thoughts: no Risk Screens Suicide Risk Screen In the Past Month: Have you wished you were or wished you could go to sleep and not wake up no In the Past Month: Have you had any actual thoughts of killing yourself no In Your Lifetime: Have you ever done anything, started to do anything, or prepared to do anything to end your life no Angelo Fall Scale Screening Has the patient fallen before (or is the patient in the ED as a result of a fall) has not had a fall Does the patient have an impaired gait does not have impaired gait Is the patient cognitively impaired not cognitively impaired Interventions: Angelo Fall Interventions: LOW INTERVENTIONS: *patient oriented to surroundings and call system, * patient/family falls education completed and documented, *patients fall status communicated during bedside handoff, *whiteboard updated, *mode of toileting discussed with patient, *bed in low position with brakes locked, *call light in reach, * non-skid footwear TRAVEL HISTORY Travel History Coronavirus Screening: no exposure or symptoms Travel Exposure History: NO travel to International locations in the past 30 days PAIN Pain Scale Used: CT Past Medical History: Past Medical History Reviewedyes Electronic Signatures: Erick Shelton (KEN) (Signed 25-Jan-2021 19:52) Entered: Risk Screens, Pain, Travel History, Chart Review, Scores, Past Medical History Authored: Quick Triage, Risk Screens, Pain, Travel History, Chart Review, Scores, Past Medical History Last Updated: 25-Jan-2021 19:52 by Erick Shelton (KEN) Normal [facility] Troponin I, Serumon 01-26-20 21 Troponin I.cardiac [Mass/Vol] ng/mL See Below [facility] 201 DO Work Phone: Comment on above: Reference Range: 0.0 0 - 0.03LESS THAN 0.04 NG/ML: NEGATIVEREPEAT TESTING IN THREE TO SIX HOURSIF CLINICALLY INDICATED.0.04 - 0.5 NG/ML: CONSISTENT WITH POSSIBLECARDIAC DAMAGE AND POSSIBLE INCREASEDCLINICAL RISK.SERIAL MEASUREMENTS MAY HELP ASSESS EXTENT OFMYOCARDIAL DAMAGE.>0.5 NG/ML: CONSISTENT WITH CARDIAC DAMAGE,INCREASED CLINICAL RISK AND MYOCARDIALINFARCTION. SERIAL MEASUREMENTS MAY HELPASSESS EXTENT OF MYOCARDIAL DAMAGE..Note: Troponin I testing is performed using different testing methodology at [facility] than at other [facility]. Direct result comparisons should only be made within the same method. Blood Pressure Cuff Sizeon 0 01-13-2021 Blood Pressure Cuff Size Adult [facility] DO Work Phone: Post Op (General Surgery)on 01-13-2021 Post Op (General Surgery) Diagnoses/Problems H/O hiatal hernia (V12.79) (Z87.19) Patient Discussion/Summary followup in one month; no lifting more than 10 lbs for 6 wks; take the Protonix for another month; continue to try regular diet (chew well and eat small meals) Provider Impressions Status post laparoscopic hiatal hernia repair with toupet wrap. Doing well overall. We talked about gradually increasing her diet. No lifting more than 10 pounds for another month. Follow-up in 1 month. Take Protonix 40 mg once daily for a month. Chief Complaint POV patient is here post op hiatal hernia repair History of Present [id number] patient who underwent laparoscopic repair of hiatal hernia with toupet wrap over 52 [place]. She is currently on a soft diet. She tries scrambled eggs but it went down slowly . She was able to tolerate mashed potato. Denies nausea, vomiting, heartburn and acid reflux. Still has some pain over the left upper quadrant incision especially when she sneezes or moves. 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) GERD (gastroesophageal reflux disease) (530.81) (K21.9) Gout (274.9) (M10.9) H/O hiatal hernia (V12.79) (Z87.19) Hiatal hernia (553.3) (K44.9) Hyperlipidemia (272.4) (E78.5) Right flank pain (789.09) (R10.9) Right upper quadrant abdominal pain (789.01) (R10.11) S/P laparoscopic cholecystectomy (V45.89) (Z90.49) Surgical History History of Cholecystectomy laparoscopic History of Coronary artery stent placement History of Esophagogastroduodenoscopy History of Hysterectomy History of Paraesophageal hiatal hernia repair History of Right hemicolectomy Family History Family history of malignant neoplasm of colon (V16.0) (Z80.0) Mother: DX age 53, s/p chemo, colon surgery, living. Maternal grandmother: DX age 60's, s/p colon surgery, chemo and radiation, Family history of malignant neoplasm of colon (V16.0) (Z80.0) Mother: DX age 53, s/p chemo, colon surgery, living. Maternal grandmother: DX age 60's, s/p colon surgery, chemo and radiation, Family history of lung cancer (V16.1) (Z80.1) Family history of throat cancer (V16.0) (Z80.0) Family history of breast cancer (V16.3) (Z80.3) Social History Currently working Does not use illicit drugs (V49.89) (Z78.9) Never a smoker No alcohol use Allergies allopurinol Recorded By: Linda Bernard; 01/08/2020 9:43:13 AM Sulfa Drugs Recorded By: Linda Bernard; 06/12/2019 2:40:16 PM Current Meds Medication NameInstruction Bystolic 10 MG Oral Tablet2 TABLETS IN THE MORNING AND 1 AT BEDTIME. Colchicine 0.6 MG Oral TabletTAKE 1 TABLET DAILY DIRECTED. Losartan Potassium 25 MG Oral TabletTAKE 1 TABLET DAILY DIRECTED. metFORMIN HCl ER 500 MG Oral Tablet Extended Release 24 HourTAKE 1 TABLET DAILY DIRECTED. Pantoprazole Sodium 40 MG Oral Tablet Delayed ReleaseTAKE 1 TABLET TWICE A DAY, 30 MINUTES BEFORE BREAKFAST AND DINNER ProAir HFA 108 (90 Base) MCG/ACT Inhalation Aerosol Solution Rosuvastatin Calcium 40 MG Oral TabletTAKE 1 TABLET DAILY. Vitals Vital Signs Recorded: 13Jan2021 09:15AMRecorded: 13Jan2021 09:10AM Heart [id number] [id number] Dsyoxyej155, LUE, Sitting Kyyjbnvmh57, LUE, Sitting Blood Pressure Cuff SizeAdult Height5 ft 3 in Tuizep028 lb BMI Niwkmxgcxf79.16 kg/m2 BSA Calculated2.08 Physical Exam abd: soft, non-distended, minimal tenderness over LUQ incision; glue in place Signatures Electronically signed by : Tino Shaw MD; Jan 13 2021 11:22AM EST (Author) Normal [place] BASIC METABOLIC PANELon 05-2 Anion gap [Moles/Vol] 12 mmol/L Normal 10 - 20 [facility] Comment on above: Performed By: #### B MP #### [address] [id number] Calcium [Mass/Vol] 8.9 mg/dL Normal 8.6 - 10.3 [facility] Comment on above: Performed By: #### B MP #### [address] [id number] Chloride [Moles/Vol] 102 mmol/L Normal 98 - 107 [facility] Comment on above: Performed By: #### B MP #### [address] [id number] Creatinine [Mass/Vol] 0.90 mg/dL Normal 0.50 - 1.05 [facility] Comment on above: Performed By: #### B MP #### [address] [id number] GFR- AM. >60 Normal >60 [facility] Comment on above: Result Comment: CALC ULATIONS OF ESTIMATED GFR ARE PERFORMED USING THE MDRD STUDY EQUATION FOR THE IDMS-TRACEABLE CREATININE METHODS. CLIN CHEM 2007;53:766-72 Performed By: #### B MP #### [address] [id number] GFR-NON AM. >60 Normal >60 [facility] Comment on above: Performed By: #### B MP #### [address] [id number] Glucose [Mass/Vol] 123 mg/dL High 74 - 99 [facility] Comment on above: Performed By: #### B MP #### [address] [id number] HCO3 (Bld) [Moles/Vol] 29 mmol/L Normal 21 - 32 [facility] Comment on above: Performed By: #### B MP #### [address] [id number] Potassium [Moles/Vol] 3.5 mmol/L Normal 3.5 - 5.3 [facility] Comment on above: Performed By: #### B MP #### [address] [id number] Sodium [Moles/Vol] 139 mmol/L Normal 136 - 145 [facility] Comment on above: Performed By: #### B MP #### [address] [id number] Urea nitrogen [Mass/Vol] 9 mg/dL Normal 6 - 23 [facility] Comment on above: Performed By: #### B MP #### [address] [id number] Discharge [id number] Discharge Profile2 Discharge Orders: Anticipated Discharge Date: Anticipated Discharge [id number] DNAR: DNAR Status: none Activity: activity as tolerated No lifting more than 10 lbs for 6 wks. May shower. Don't drive while taking narcotic. Diet: DietStart Full liquid diet tomorrow and stay on for 5 days; than soft diet for 1 week Provider FINAL REVIEW of Orders: Final Review: Final Review of Medication Reconciliation and Orders Completedby Physician Reviewing ProviderTino Shaw MD at 02-Jan-2021 09:58:13 Appointments: Follow-Up Appointment 01: Physician/Dept/ServiceF/u with Dr. Shaw in 2 wks Call to Schedule in2 weeks Phone [phone] Commentscall to make appointment Follow-Up Appointment 02: Physician/Dept/ServiceF/u with your Primary Care Doctor for your anxiety Other Clinician Instructions: Other Instructions: Nutrition InstructionsStart Full liquid diet tomorrow (01/03/2021) and continue for 5 days; also drink BOOST or Protein Shakes or Ensure three times a day; avoid carbonated beverages for 2 wks Start Soft diet on 01/08/2021 and continue for 1 week; avoid Bread, Steak and Salad for 2 weeks; eat small bites and chew very well Electronic Signatures: Tino Shaw) (Signed 02-Jan-2021 09:58) Authored: Discharge Orders, Provider FINAL REVIEW of Orders, Appointments, Other Clinician Instructions, Gold Form - Costume Technician Summary Last Updated: 02-Jan-2021 09:58 by Tino Shaw) Normal [facility] Laboratory - Chemistry and C hemistry - challengeon 01-02-2021 Anion gap [Moles/Vol] 12 mmol/L 10 - 20 [facility] 201 DO Work Phone: Calcium [Mass/Vol] 8.9 mg/dL 8.6 - 10.3 [facility] 201 DO Work Phone: Chloride [Moles/Vol] 102 mmol/L 98 - 107 -E lyria [facility] 201 DO Work Phone: CO2 [Moles/Vol] 29 mmol/L 21 - 32 [facility] 201 DO Work Phone: Creatinine [Mass/Vol] 0.90 mg/dL See Below [facility] 201 DO Work Phone: Comment on above: Reference Range: 0.5 0 - 1.05 Glucose [Mass/Vol] 123 mg/dL above high threshold 74 - 99 [facility] 201 DO Work Phone: Potassium [Moles/Vol] 3.5 mmol/L 3.5 - 5.3 [facility] 201 DO Work Phone: Sodium [Moles/Vol] 139 mmol/L 136 - 145 -[facility] 201 DO Work Phone: Urea nitrogen [Mass/Vol] 9 mg/dL 6 - 23 -[facility] 201 DO Work Phone: MAGNESIUMon 01-02-2021 Magnesium [Mass/Vol] 1.70 mg/dL Normal 1.60 - 2.40 [facility] Comment on above: Performed By: #### M G #### [address] [id number] Magnesium, Serumon Magnesium [Mass/Vol] 1.70 mg/dL See Below MP-E nelria [facility] 201 DO Work Phone: Comment on above: Reference Range: 1.6 0 - 2.40 No Panel Informationon 01-02 >60 >60 [facility] 201 DO Work Phone: Comment on above: CALCULATIONS OF GWENDOLYN MATED GFR ARE PERFORMED USING THE MDRD STUDY EQUATION FOR THE IDMS-TRACEABLE CREATININE METHODS. CLIN CHEM 2007;53:766-72 Order Reconciliationon 01-02 Order Reconciliation Page 1 Discharge Reconciliation Document Reconciliation Type: Discharge requested on behalf of Tino Shaw (Physician) done by Tino Shaw) Discharge - Reconciliation: 02-Jan-2021 10:02 by: Tino Shaw) Home Medications EnteredHOME MEDICATIONS AT DISCHARGE DateReconciliation Comment/ Additional Information aspirin 81 mg oral tablet orally once a day 23-Nov-2020 08:08 aspirin 81 mg oral tablet orally once a day 23-Nov-2020 08:08 aspirin 81 mg oral tablet is continued as aspirin 81 mg oral tablet Bystolic 10 mg oral tablet 1 tab(s) orally once a day (at bedtime) 17-Jun-2019 13:06 Bystolic 10 mg oral tablet 1 tab(s) orally once a day (at bedtime) 17-Jun-2019 13:06 Bystolic 10 mg oral tablet is continued as Bystolic 10 mg oral tablet Bystolic 10 mg oral tablet 2 tab(s) orally once a day in the morning-pt instructed to take on day of surgery 17-Jun-2019 13:05 Bystolic 10 mg oral tablet 2 tab(s) orally once a day in the morning-pt instructed to take on day of surgery 17-Jun-2019 13:05 Bystolic 10 mg oral tablet is continued as Bystolic 10 mg oral tablet colchicine 0.6 mg oral tablet 1 tab(s) orally once a day (at bedtime) 23-Nov-2020 08:04 colchicine 0.6 mg oral tablet 1 tab(s) orally once a day (at bedtime) 23-Nov-2020 08:04 colchicine 0.6 mg oral tablet is continued as colchicine 0.6 mg oral tablet Crestor 40 mg oral tablet 1 tab(s) orally once a day (at bedtime) 23-Nov-2020 08:04 Crestor 40 mg oral tablet 1 tab(s) orally once a day (at bedtime) 23-Nov-2020 08:04 Crestor 40 mg oral tablet is continued as Crestor 40 mg oral tablet losartan 25 mg oral tablet 1 tab(s) orally once a day (at bedtime) 23-Nov-2020 08:05 losartan 25 mg oral tablet 1 tab(s) orally once a day (at bedtime) 23-Nov-2020 08:05 losartan 25 mg oral tablet is continued as losartan 25 mg oral tablet metFORMIN 500 mg oral tablet, extended release orally 2 times a day 23-Nov-2020 08:07 metFORMIN 500 mg oral tablet, extended release orally 2 times a day 23-Nov-2020 08:07 metFORMIN 500 mg oral tablet, extended release is continued as metFORMIN 500 mg oral tablet, extended release nitroglycerin 0.4 mg sublingual tablet 1 tab(s) sublingual every 5 minutes, As Needed 23-Nov-2020 08:07 nitroglycerin 0.4 mg sublingual tablet 1 tab(s) sublingual every 5 minutes, As Needed 23-Nov-2020 08:07 nitroglycerin 0.4 mg sublingual tablet is continued as nitroglycerin 0.4 mg sublingual tablet pantoprazole 40 mg oral delayed release tablet 1 tab(s) orally 2 times a day 05-Feb-2020 14:07 pantoprazole 40 mg oral delayed release tablet 1 tab(s) orally 2 times a day 05-Feb-2020 14:07 pantoprazole 40 mg oral delayed release tablet is continued as pantoprazole 40 mg oral delayed release tablet ProAir HFA 90 mcg/inh inhalation aerosol 2 puff(s) inhaled 4 times a day, As Needed-instructed to bring in on day of surgery, instructed ok to use AM of surgery 17-Jun-2019 13:07 ProAir HFA 90 mcg/inh inhalation aerosol 2 puff(s) inhaled 4 times a day, As Needed-instructed to bring in on day of surgery, instructed ok to use AM of surgery 17-Jun-2019 13:07 ProAir HFA 90 mcg/inh inhalation aerosol is continued as ProAir HFA 90 mcg/inh inhalation aerosol Turmeric 500 mg oral capsule 1 cap(s) orally once a day 29-Dec-2020 09:57 Turmeric 500 mg oral capsule 1 cap(s) orally once a day 29-Dec-2020 09:57 Turmeric 500 mg oral capsule is continued as Turmeric 500 mg oral capsule Current OrdersDateHOME MEDICATIONS AT DISCHARGE DateReconciliation Comment/ Additional Information Atorvastatin Tablet (LIPITOR)DOSE = 80 mg Oral At BedtimeNotes from Pharmacy: Substitution for Rosuvastatin (CRESTOR) 40mg Oral At Bedtime 31-Dec-2020 11:48 Atorvastatin is not required Colchicine TabletDOSE = 0.6 mg Oral DailyNotes from Pharmacy: Reproductive Risk- Single Nitrile Glove 31-Dec-2020 11:48 Colchicine is not required Docusate Capsule (COLACE)DOSE = 100 mg Oral 2 Times a Day 31-Dec-2020 07:36 docusate sodium 100 mg oral capsule 1 cap(s) orally 2 times a day 02-Jan-2021 09:59 Prescription is created for docusate sodium 100 mg oral capsule HYDROcodone 7.5 mg - Acetaminophen 325 mg Tablet (NORCO)DOSE = 1 tablet(s) Oral Every 4 Hours, PRN Pain - Mod (4-6) 31-Dec-2020 07:36 hydrocodone-acetaminophen 7.5 mg-325 mg oral tablet 1 tab(s) orally every 4 hours, As needed, Pain - Mod (4-6) 02-Jan-2021 10:01 Prescription is created for hydrocodone-acetaminophen 7.5 mg-325 mg oral tablet LORazepam Tablet (ATIVAN)DOSE = 0.5 mg Oral Every 8 Hours, PRN Anxiety 02-Jan-2021 09:41 LORazepam 0.5 mg oral tablet 1 tab(s) orally every 8 hours, As needed, Anxiety 02-Jan-2021 09:58 Prescription is created for LORazepam 0.5 mg oral tablet Losartan Tablet (COZAAR)DOSE = 25 mg Oral Daily 31-Dec-2020 11:48 Losartan is not required metFORMIN Extended Release (GLUCOPHAGE XR) Tablet, Extended ReleaseDOSE = 500 mg Oral 2 Times a Day 31-Dec-2020 11:48 metFORMI (more content not included)... Normal [facility] PHOSPHORUSon 01-02-2021 Phosphate [Mass/Vol] 2.7 mg/dL Normal 2.5 - 4.9 [facility] Comment on above: Result Comment: The performance characteristics of phosphorus testing in heparinized plasma have been validated by the individual laboratory site where testing is performed. Testing on heparinized plasma is not approved by the FDA; however, such approval is not necessary. Performed By: #### L IPAS #### [address] [id number] Phosphorus, Serumon 01-03-20 21 Phosphate [Mass/Vol] 2.7 mg/dL 2.5 - 4.9 [facility] 201 DO Work Phone: Comment on above: The performance dee acteristics of phosphorus testing in heparinized plasma have been validated by the individual laboratory site where testing is performed. Testing on heparinized plasma is not approved by the FDA; however, such approval is not necessary. Daily Progress Note-Acute Ca re Surgeryon 01-01-2021 Daily Progress Note-Acute Care Surgery Service: Acute Care Surgery Subjective Data: JOY HAWTHORNE is a 55 year old Female who is Hospital Day # 2 and POD #1 for 1. Laparoscopic paraesophageal hernia repair with Toupet wrap; gastroscopy;2. ;3. ;4. ;5. Additional Information: tolerating clear diet with no nausea, vomiting and dysphagia; having incisional pain in the LUQ incisions, afebrile Objective Data: Objective Information: T PRBPSpO2 Value37.94002645/7897% Date/Time01/01 8: 8: 8: 8: 8:13 Range(36.9C - 37.6C ) (65 - 84 ) (17 - 18 ) (126 - 141 )/ (58 - 78 ) (95% - 99% ) Highest temp of 37.6 C was recorded at 12/31 19:51 Pain reported at 01/01 8:20: 4 = Moderate T PRBPSpO2 Value37.31096048/7897% Date/Time01/01 8: 8: 8: 8: 8:13 Range(36.9C - 37.6C ) (65 - 84 ) (17 - 18 ) (126 - 141 )/ (58 - 78 ) (95% - 99% ) Highest temp of 37.6 C was recorded at 12/31 19:51 Physical Exam by System: Constitutional: sitting in chair, no acute distress Gastrointestinal: soft, non-distended, tenderness especially over the LUQ trocar sites Medication: Medications: Continuous Medications ----- No continuous medications are active Scheduled Medications ----- 1. Atorvastatin: 80 mg Oral At Bedtime 2. Colchicine: 0.6 mg Oral Daily 3. Docusate: 100 mg Oral 2 Times a Day 4. Losartan: 25 mg Oral Daily 5. metFORMIN Extended Release (GLUCOPHAGE XR): 500 mg Oral 2 Times a Day 6. Metoprolol Succinate Extended Release: 100 mg Oral Daily 7. Ondansetron Injectable: 4 mg IntraVenous Push Every 6 Hours 8. Pantoprazole: 40 mg Oral Daily 9. Simethicone Chewable: 80 mg Oral 4 Times a Day After Meals PRN Medications ----- 1. HYDROcodone 7.5 mg - Acetaminophen 325 m tablet(s) Oral Every 4 Hours 2. Metoclopramide Injectable: 10 mg IntraVenous Push Every 8 Hours 3. Morphine Injectable: 2 mg IntraVenous Push Every 4 Hours 4. Nitroglycerin SubLingual: 0.4 mg SubLingual Every 5 Minutes Assessment and Plan: Code Status: Code StatusFull Code Assessment: Doing well overall but some incisional pain requiring IV narcotic; I will keep patient for another day to get her pain under control; increase activities; I will start subQ Lovenox/pulm toilet Electronic Signatures: Tino Shaw) (Signed 01-Jan-2021 12:22) Authored: Service, Subjective Data, Objective Data, Assessment and Plan, Note Completion Last Updated: 01-Jan-2021 12:22 by Tino Shaw) Normal [facility] Discharge Planning [id number] 0 01-01-2021 Discharge Planning Note2 Discharge Planning: Anticipated Discharge [id number] Assessment: Discharge Planning Assessment [id number] Stated Reason for AdmissionI had a hernia repaired (1) [place] ([place]) Living Arrangementshouse(1) Resource/Environmental Concernsnone(1) Anticipated Transition Tole roy(1) Services Anticipated at Transitionnone(1) Discharge Documentation: Discharge/Transfer Date/Fvfo87-Fzb-0526 15:03 Discharge Modewheelchair Discharged Accompanied Byfamily member Transportation Methodambulance Valuables/Medications/Belon gings Returnedyes Final DispositionHome Electronic Signatures: Moise White) (Signed 02-Jan-2021 15:03) Authored: Discharge Planning, Discharge Documentation Layne Baer (LAMBERT) (Signed 01-Jan-2021 10:43) Authored: Discharge Planning, Assessment Last Updated: 02-Jan-2021 15:03 by Moise White (KEN) References: 1. Data Referenced From Patient Profile - Adult v2 31-Dec-2020 16:45 Normal [facility] Admission Risk Screen - Adul ton 12-31-2020 Admission Risk Screen - Adult Allergies: Allergies: allopurinol: Hives/Urticaria sulfa drugs: Hives/Urticaria Patient Verification: New W ID Band Applied in my Departmentyes Patient Identity Verified Bypatient ID Band FULL Name, include Middle, spelling matches patient's ID used for verificationyes ID Band Matches Patient ID used for Verficationyes ID Band MRN Matches EMR MRNyes Visitor Restriction: Coronavirus Visitor Restriction: Reasonable restrictions to in-person visitors will be observed due to current coronavirus pandemic. Travel History: COVID-19 Screening Completedno exposure or symptoms Advance Directive: Advance Directive/DNRno Advance Directive Information Givenpatient/family declined [place] Fall Screen: History of falling (immediate or previous)no (0) Secondary Diagnosisno (0) Intravenous Therapy/ Heparin/Saline Lockyes (20) Gait/Transferringnormal/bed rest/wheelchair (0) Ambulatory Aidsnone/bedrest/nurse assist (0) Mental Statusoriented to own ability (0) Score: Low risk (<25). Moderate risk (25-44). High risk (>44).20 Angelo InterventionsLOW INTERVENTIONS: *patient oriented to surroundings and call system, * patient/family falls education completed and documented, *patients fall status communicated during bedside handoff, *whiteboard updated, *mode of toileting discussed with patient, *bed in low position with brakes locked, *call light in reach, * non-skid footwear Family Violence Screen: Are you or have you been threatened or abused physically, emotionally, or sexually by anyoneno Do you feel UNSAFE going back to the place where you are livingno Clinical assessment: Are there any apparent signs of injuries/behaviors that could be related to abuse/neglectno Social Service Consult for abuse/neglect needed this visitno Functional Screen: Functional Screen: In the recent/past 2-4 weeks, patient or family have noticedno issues that require a speech/language consult at this time AM-PAC- Basic Mobility/Daily Activity: Patient baseline bedboundno Turning from your back to your side while in a flat bed without using bedrailsnone Moving from lying on your back to sitting on the side of a flat bed without using bedrailsnone Moving to and from bed to chair (including a wheelchair)a little Standing up from a chair using your arms (e.g. wheelchair or bedside chair)a little To walk in hospital roomnone Climbing 3-5 steps with railingnone Basic Mobility - Total Score22 Learning Assessment (Patient): Patient is Able to be Assessed for Learningyes Factors Influencing Readiness to Learnacuteness of illness Factors that Impact Ability to Learnnone Devices/Methods Used to Communicatenone Learning Preferencesverbal instruction; skill demonstration; written material Cultural Considerationsnone Developmental Considerationsnone Rastafarian Considerationsnone Learning Assessment (Other Learner): Other learner availableno Depression Screen: During the past month, have you often been bothered by feeling down, depressed or hopelessno During the past month, have you often had little interest or pleasure in doing thingsno Have you had any thoughts of harming anyone elseno [place] Suicide: Risk Screen Not Applicable/Able to Answerable to be screened In the Past Month: Have you wished you were or could go to sleep and not wake upno In the Past Month: Have you had any actual thoughts of killing yourselfno Lifetime: Have you ever done, started to do, or prepared to do anything to end your lifeno [place] Suicide Risknegative Adult Nutrition Screen: Have you recently lost weight without tryingno Have you been eating poorly because of a decreased appetiteno Malnutrition Screening Tool Score0 Malnutrition Screening Tool RiskMST = 0 or 1 Not at risk. Eating well with little or no weight loss Nutrition Consult needed this visitno Can Patient Participate in Room Serviceyes Patient requires Paper Dishes/Plastic Utensilsno Pain Screen: Pain Scalenumerical 0-10 Pain Scale Educationteaching provided Current Pain Level4 = Moderate Acceptable Pain Level4 = Moderate Expression of Pain (nonverbal)none Chronic Painno Spiritual Screen: Are there any cultural, spiritual, sabianism practices/values/needs that are important for us to knowno CAGE: Is this an injured patient at a Trauma Center ([facility]/[place]): no Vaccinations: Vaccination - Influenza Vaccination Screen: Is it flu season (between and November 10)No Vaccination - Pneumonia Vaccination Screen: Patient has received a previous pneumonia vaccine:no/unknown... Immunocompetent persons with underlying chronic conditions or reside in [place] care facilitieschronic heart disease (excluding hypertension), diabetes mellitus Persons with Functional or Anatomic Asplenianone of these conditions Immunocompromised Personsno (more content not included)... Normal [facility] Clinical Event Note-1st aditya meza 12-31-2020 Clinical Event Note-1st assist Clinical Event: Clinical Event Note: Qftrw6ni assist Details 1st assist [address] shaw with procedure on 12/31/2020 Electronic Signatures: True Hidalgo (PAC) (Signed 31-Dec-2020 12:05) Authored: Clinical Event Note Last Updated: 31-Dec-2020 12:05 by True Hidalgo (PAC) Normal [facility] Clinical Event Note-Surgical Assiston 12-31-2020 Clinical Event Note-Fur Stylist Clinical Event: Clinical Event Note: TopicSurgical Assist Details I was medical surgical tech to Dr. Shaw in Joy Hawthorne's laparoscopic hiatal hernia repair with Toupet wrap on 12/31/2020. Teresa Andrade PA-C Electronic Signatures: Teresa Andrade (PAC) (Signed 31-Dec-2020 11:57) Authored: Clinical Event Note Last Updated: 31-Dec-2020 11:57 by Teresa Andrade (PAC) Normal [facility] GLUCOSE-POCTon 12-31-2020 Glucose [Mass/Vol] 188 mg/dL High 74 - 99 [facility] Comment on above: Performed By: #### B MP #### [address] [id number] Glucose [Mass/Vol] 127 mg/dL High 74 - 99 [facility] Comment on above: Performed By: #### B MP #### [address] [id number] Laboratory - Chemistry and C hemistry - challengeon 12-31-2020 Glucose [Mass/Vol] 188 mg/dL above high threshold 74 - 99 [facility] 201 DO Work Phone: Glucose [Mass/Vol] 127 mg/dL above high threshold 74 - 99 [facility] 201 DO Work Phone: No Panel Informationon 12-31 [email or web address]?Ret rieveTestByDateTime?Patient OJ=[id number]&Date= 1&Time=06%3a33%3a36%3a00&Te stType=ECG&Site=11&OutputTy pe=PDF&Ext=PDF [facility] 201 DO Work Phone: Sinus bradycardia [facility] 201 DO Work Phone: Abnormal [facility] 201 DO Work Phone: [phone] [facility] 201 DO Work Phone: [phone] [facility] 201 DO Work Phone: [phone] [facility] 201 DO Work Phone: [phone] [facility] 201 DO Work Phone: [phone] [facility] 201 DO Work Phone: [phone] [facility] 201 DO Work Phone: [phone] [facility] 201 DO Work Phone: [phone] 1 [facility] 201 DO Work Phone: [phone] [facility] 201 DO Work Phone: [phone] [facility] 201 DO Work Phone: [phone] [facility] 201 DO Work Phone: [phone] 1 [facility] 201 DO Work Phone: [phone] [facility] 201 DO Work Phone: [phone] [facility] 201 DO Work Phone: Order Reconciliationon 12-31 Order Reconciliation Page 1 Admission Reconciliation Document Reconciliation Type: Admission requested on behalf of Tino Shaw (Physician) done by Tino Shaw) Admission - Reconciliation: 31-Dec-2020 11:48 by: Tino Shaw) Home MedicationsEnteredLast Dose TakenReconciled with current Order Reconciliation Comment/ Additional Information aspirin 81 mg oral tablet orally once a [id number] Reviewed and Held Bystolic 10 mg oral tablet 1 tab(s) orally once a day (at bedtime)31-Dec-2020 PM Reviewed and Held Bystolic 10 mg oral tablet 2 tab(s) orally once a day in the morning-pt instructed to take on day of -[id number] 21 04:30 AM Metoprolol Succinate Extended Release Tablet, Extended Release (TOPROL-XL)DOSE = 100 mg Oral DailyNotes from Pharmacy: Substitution for Nebivolol 10 mg Once DailyBystolic 10 mg oral tablet continued as the inpatient order Metoprolol Succinate Extended Release colchicine 0.6 mg oral tablet 1 tab(s) orally once a day (at bedtime) PM Colchicine TabletDOSE = 0.6 mg Oral Daily colchicine 0.6 mg oral tablet continued as the inpatient order Colchicine Crestor 40 mg oral tablet 1 tab(s) orally once a day (at bedtime)31-Dec-2020 PM Atorvastatin Tablet (LIPITOR)DOSE = 80 mg Oral At BedtimeNotes from Pharmacy: Substitution for Rosuvastatin (CRESTOR) 40mg Oral At BedtimeCrestor 40 mg oral tablet continued as the inpatient order Atorvastatin losartan 25 mg oral tablet 1 tab(s) orally once a day (at bedtime)31-Dec-2020 PM Losartan Tablet (COZAAR)DOSE = 25 mg Oral Dailylosartan 25 mg oral tablet continued as the inpatient order Losartan metFORMIN 500 mg oral tablet, extended release orally 2 times a [id number]-Dec-2020 metFORMIN Extended Release (GLUCOPHAGE XR) Tablet, Extended ReleaseDOSE = 500 mg Oral 2 Times a DaymetFORMIN 500 mg oral tablet, extended release continued as the inpatient order metFORMIN Extended Release (GLUCOPHAGE XR) nitroglycerin 0.4 mg sublingual tablet 1 tab(s) sublingual every 5 minutes, As [id number] Nitroglycerin SubLingual Powder (GONITRO)DOSE = 0.4 mg SubLingual Every 5 Minutes, PRN Anginanitroglycerin 0.4 mg sublingual tablet continued as the inpatient order Nitroglycerin SubLingual pantoprazole 40 mg oral delayed release tablet 1 tab(s) orally 2 times a day [id number] PM Pantoprazole Enteric Coated Tablet (PROTONIX)DOSE = 40 mg Oral Dailypantoprazole 40 mg oral delayed release tablet continued as the inpatient order Pantoprazole ProAir HFA 90 mcg/inh inhalation aerosol 2 puff(s) inhaled 4 times a day, As Needed-instructed to bring in on day of surgery, instructed ok to use AM of [id number] Reviewed and Held Turmeric 500 mg oral capsule 1 cap(s) orally once a [id number] Reviewed and Held Additional Current Orders Albuterol 2.5 mg/ 3 mL Nebulizer Soln (PROVENTIL)DOSE = 3 mL Inhalation Once via Nebulizer, PRN Wheezing (PACU)Clinician Notes: Missy-operative order ONLY Docusate Capsule (COLACE)DOSE = 100 mg Oral 2 Times a Day fentaNYL Injectable (SUBLIMAZE)DOSE = 25 microgram(s) IntraVenous Push Every 5 Minutes, PRN Pain - Mod (4-6) (PACU) if unable to take oralClinician Notes: Missy-operative order ONLYMax total of 200 micrograms regardless of dose. HYDROcodone 7.5 mg - Acetaminophen 325 mg Tablet (NORCO)DOSE = 1 tablet(s) Oral Every 4 Hours, PRN Pain - Mod (4-6) HYDROmorphone Injectable (DILAUDID)DOSE = 0.4 mg IntraVenous Push Every 5 Minutes, PRN Pain - Severe (7-10) (PACU)Clinician Notes: Missy-operative order ONLYMax total of 4 mg regardless of dose. Lactated Ringers Infusion IV Bag Volume = 1,000 mL Run at: 100 mL/hr IntraVenous Clinician Notes: Missy-operative order ONLY Lactated Ringers Infusion IV Bag Volume = 1,000 mL Run at: 30 mL/hr IntraVenous Meperidine Injectable (DEMEROL)DOSE = 12.5 mg IntraVenous Push Every 10 Minutes, PRN Shivering (PACU)Clinician Notes: Missy-operative order ONLY Metoclopramide Injectable (REGLAN)DOSE = 10 mg IntraVenous Push Every 8 Hours, PRN nausea Morphine Injectable DOSE = 2 mg IntraVenous Push Every 4 Hours, PRN Pain - Severe (7-10) Ondansetron Injectable (ZOFRAN)DOSE = 4 mg IntraVenous Push Every 6 Hours Ondansetron Injectable (ZOFRAN)DOSE = 4 mg IntraVenous Push Once, PRN PONV, first lineClinician Notes: Missy-operative order ONLY Promethazine IV Piggy Back in Sodium Chloride 0.9% 50 mL (PHENERGAN)DOSE = 6.25 mg Once, PRN persistent PONV if first line ineffectiveRecommended Infusion Time: 15 minute(s)Clinician Notes: Missy-operative order ONLY Simethicone Chewable Tablet, Chewable (MYLICON)DOSE = 80 mg Oral 4 Times a Day After Meals Normal [facility] Preop Checkliston 12-31-2020 Preop Checklist Preop Checklist: Preop Checklist: Arrival [id number] Arrival Time05:19 Procedure TypeHIATEL HERNIA REPAIR Temperature C36.3 degrees C Temperature F97.3 degrees F Heart Rate52 beats per minute Respiratory Rate16 breath per minute Blood Pressure Nxnkhaje117 mm/Hg Blood Pressure Eylkckwuc19 mm/Hg NPO [id number] 20:30 NPO CommentSIP OF WATER WITH BETABLOCKER Beta-dimple Last Dose Date/Jtid41-Sor-1995 04:30 ID Band Onyes Allergy Bandyes Consent Signedyes H&P Completepending Anesthesia Assessment Completedpending EKG Performedyes Chest X-Ray Performednot ordered HCG Urine TestN/A HYSTERECTOMY Chlorhexadine Bath Givennot applicable Nasal Antiseptic Appliednot applicable Hair Washednot applicable Soap and water bath with hair shampoo the night before surgerynot applicable Hat placed on prior to transportnot applicable SCD's Appliedsent to OR [facility] Hose Appliednot ordered Denturesnot applicable Prostheticsnot applicable Hearing Aidsnot applicable Valuables Securednot applicable CELL PHONE IN BELONGING BAG LABELED Glasses / Contactsnot applicable Bowel Prepno OtherCARDIAC STENTS Cardiovascular Assessment: CommentsDEFER TO ANESTHESIA Respiratory Assessment: Breath SoundsDEFER TO ANETHESIA Neurological Assessment: Level of Consciousnessalert Mobilitymoves all extremities Able to Express Selfyes Emotional Statuscalm Skin Assessment: Skin Site(s) with Current Compromisenone Preop Education: Surgical Site Infection Preventionno Pain Scales and Managementyes Language / Communication: Language / CommunicationEnglish Electronic Signatures: Romina Weber) (Signed 31-Dec-2020 06:05) Authored: Preop Checklist Last Updated: 31-Dec-2020 06:05 by Romina Weber (SAMEER) Normal [facility] CORONAVIRUS 2019, SCREEN ASY MPTOMATICon 12-29-2020 SARS-CoV-2 (COVID-19) RNA CAMILA+probe Ql (Unsp spec) Not detected Normal Not Detected [facility] Comment on above: Result Comment: . This assay is designed to detect SARS-CoV-2 based on replication of specific regions of the RNA from the SARS-CoV-2 virus. A Not Detected result does not preclude 2019-nCoV infection since the adequacy of sample collection and/or low viral burden may result in presence of viral nucleic acids below the clinical sensitivity of this test method. Fact sheet for providers: https://www.fda.gov/media/579099/download Fact sheet for patients: https://www.fda.gov/media/350435/download This test has received FDA Emergency Use Authorization [EUA] and has been verified by [facility] ([facility]). This test is only authorized for the duration of time that circumstances exist to justify the authorization of the emergency use of in vitro diagnostic tests for the detection of SARS-CoV-2 virus and/or diagnosis of COVID-19 infection under section 564(b)(1) of the Act, 21 U.S.C. 360bbb-3(b)(1), unless the authorization is terminated or revoked sooner. [facility] is certified under CLIA-88 as qualified to perform high complexity testing. Testing is performed in the [facility] laboratories located at [address] [place] [address]. Performed By: #### C OVSC #### [place] [address] Covid 19 Resultson 05-19-202 1 SARS-CoV-2 (COVID-19) RNA CAMILA+probe Ql (Unsp spec) NEGATIVE COVID-19 Test Coronaviruses are common world-wide and are the cause of many common colds. SARS-COV2 is a new coronavirus that began circulating worldwide in 2019 so we are calling it COVID-19. It has been estimated that four out of five patients with COVID-19 will recover at home without the need for medical attention. Symptoms of COVID-19 may include cough, fever, shortness of breath, loss of taste or smell and other flu-like symptoms including chills, sore muscles, sore throat, and headache. Severe illness is more common in older people and people with other health problems such as high blood pressure, obesity, and immune system problems. If the test is positive, you have COVID-19. You will be contacted by the ordering physicians office and instructed to remain on home isolation, in accordance with CDC guidelines. You may also be contacted by the [facility] to see if any of your close contacts may have been exposed to the virus and need to quarantine. If the test is negative, you likely do not have COVID-19 at this time, but you still may have a different illness that can spread to other people (like Influenza, or the Flu) and could still be at risk for getting COVID-19. We recommend that you stay away from other people to limit the spread of illness until your symptoms are improving and you are fever-free for 24 hours without the use of fever lowering medications such as acetaminophen or ibuprofen. No test is 100% accurate so if you are still concerned you may have COVID-19, talk to your doctor about the need to continue to stay away from others. Medicines Unless your provider told you not to use the following: Acetaminophen (Tylenol and others) is generally safe. Anti-inflammatory medications, such as Ibuprofen (Advil or Motrin) or Naproxen (Aleve) can also be used. Stzu-rnz-bhqvuqc cough and cold medicines can be used according to the instructions on the package. Some rwzn-vtr-fdhwszk medicines also contain acetaminophen. Make sure you are not taking more than your recommended dose. For those not hospitalized, there is no specific treatment available for this illness. Antibiotics do not treat Coronaviruses. Follow-Up Follow up with your doctor by scheduling a virtual visit or consider follow-up at one of our urgent care fever clinics. If you are having difficulty breathing, or are very weak and having difficulty standing, this is a medical emergency. Call 911 or have someone take you to the nearest emergency room immediately. If possible, wear a facemask. Additional guidance from the CDC for patients who tested POSITIVE for COVID-19 How to isolate: Isolate yourself in a specific room at home and limit your contact with others. Use a separate bathroom from other members of the household, when possible. Leave home only to get essential medical care. Do not go to work, school or public areas. Avoid using public transportation, ride-sharing, or taxis. Restrict contact with pets and other animals. If you must care for your pet or be around animals while you are sick, wash your hands before and after your interaction and wear a facemask. Make sure that shared spaces in the home have good airflow, such as by an air conditioner or an opened window, weather permitting. Personal Hygiene Procedures: Wear a face mask when in the same room as other people or pets. If a face mask interferes with your breathing, others should wear a mask when sharing space with you. Frequent hand-washing: wash your hands with soap and water for at least 20 seconds. If soap and water are not available, use alcohol-based hand set up person. Avoid touching your eyes, nose, and mouth with unwashed hands. Household Hygiene Procedures: Avoid sharing personal household items such as dishes, glassware, cups, eating utensils, towels or bedding with other people or pets in your home. After use, these items should be washed with soap and hot water. Disinfect all high-touch surfaces every day with antibacterial cleaning solutions such as Lysol wipes, bleach, cleansers, etc. High-touch surfaces include tabletops, doorknobs, bathroom fixtures, toilets, phones, keyboards, tablets and bedside tables. Immediately clean any surfaces that may have blood, poop or body fluids on them, using antibacterial cleaning solutions such as Lysol wipes, bleach, cleansers, etc. If clothing or bedding come into contact with blood, poop or body fluids, they should be washed immediately. Follow the directions on the laundry detergent and clothing labels but hot water is recommended when possible. Stopping home isolation precautions: If possible, consult your doctor before stopping home isolation precautions. According to the CDC, you can discontinue home isolation precautions when you have met both of these criteria: Your fever and respiratory symptoms have been gone for 24 mima (more content not included)... 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 ID CARD IN BAG, CELL PHONE AND ELECTRO TECH IN BAG Medications Brought to Hospitalyes AN PRO AIR, PT INSTRUCTED NOT TO USE General Health: Weight in kg100 kilogram(s) Weight in ruz786.4 pound(s) Weight Methodstated Scale Typestanding Height in feet5 feet Height in inches3 inch(es) Height in cm160 centimeter(s) Height Methodstated BMI (kg/m2)39.062 square meter Patient or Family Member Reaction to Anesthesiano previous reaction; no previous family member reaction; no metal implants CARDIAC STENTS hysterectomy colon resection EGDs cholecystectomy PTCA stents Blood Avoidance/Restrictionsnone Previous Transfusion Reactionno Health Mgmt: Symptoms/Conditions Managed at Homebehavioral health; cardiovascular; gastrointestinal; musculoskeletal; obstetric/gynecologic; respiratory; endocrine Are You no Are You Currently Breastfeedingno Behavioral Health Symptoms/Conditionsanxiety; depression Behavioral Management Strategiesmedication therapy; support system Behavioral Health Symptoms/Conditions Commenthusband recently mother lives with patient and had dementia Cardiovascular Symptoms/Conditionshyperten daniel Cardiovascular Management Strategiesmedication therapy; routine screening; 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 Cardiovascular Symptoms/Conditions CommentPTCA stent x2 Endocrine Symptoms/Conditionsdiabetes Gastrointestinal Symptoms/Conditionsreflux/h eartburn Gastrointestinal Management Strategiesmedication therapy Gastrointestinal Symptoms/Conditions Commentbarrettes diverticulitis colon resection Musculoskeletal Symptoms/Conditionsosteoart hritis 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 Respiratory Symptoms/Conditionsasthma; sleep disordered breathing Respiratory Management Strategiesmedication therapy Respiratory Symptoms/Conditions Commentsleep apnea no device Barriers to Managing Healthnone Relationship/Environ: Living Arrangementshouse Lives Withparent(s); mother Living Environment Commentssister will help after procedure Resource/Environmental Concernsnone Anticipated Transition Tole roy Substance: Current or Former Substance Use never: Cigarette/Tobacco, e-Cigarette/Vaping, Alcohol, Street Drugs Risk Screens: COVID-19 Screening Completedno exposure or symptoms Advance Directive/DNRno During the past month, have you often been bothered by feeling down, depressed or hopelessno During the past month, have you often had little interest or pleasure in doing thingsno Have you had any thoughts of harming yourselfno Have you had any thoughts of harming anyone elseno Depression Commenthusband mother with dementia lives with patient Are you or have you been threatened or abused physically,emotionally or sexually abused by anyoneno Do you feel UNSAFE going back to the place you are livingno Patient is Able to be Assessed for Learningyes Factors Influencing Readiness to Learninterest in learning Factors that Impact Ability to Learnnone Devices/Methods Used to Communicateglasses Learning Preferencesverbal instruction; written material Cultural Considerationsnone Developmental Considerationsnone Rastafarian Considerationsnone Other learner availableno Falls RiskPatient location auto qualifies him/her for HIGH RISK. Are there any cultural, spiritual, sabianism practices/values/needs that are important for us to knowno Do you want a visit/item from Pastoral Careno Would you like your Screening Tech/Deck Molder notifiedno Pain Scalenumerical 0-10 Pain Scale Educationteaching provided Current Pain Level3 = Mild Acceptable Pain Level5 = Moderate Barriers to Reporting Painnone Chronic Painno Information Review: Allergies, Home Meds and Significant Events have been Reviewed and Verified with Patient/Familyyes Allergy, Intolerance, Adverse Event: Allergies: allopurinol: Drug, Hives/Urticaria, Active sulfa drugs: Drug Category, Hives/Urticaria, Active Electronic Signatures: Cassandra Jaeger) (Signed 29-Dec-2020 10:14) Authored: Initial Info, General Health, Health Mgmt, Relationship/Environ (more content not included)... Normal [facility] CORONAVIRUS 2019, SCREEN ASY MPTOMATICon 12-28-2020 Lab Specimen Source Nasal, Nasopharyngeal Normal [facility] Comment on above: Performed By: #### C OVSC #### [facility] [address] [facility] [address] Coronavirus 2019 RNA by PCR, Screening Asymptomticon 12-28-2020 Coronavirus 2019 RNA by PCR, Screening Asymptomtic Not detected Normal See Below -[facility] [address] DO Work Phone: Comment on above: SOURCE: Nasal, Nasop haryngealReference Range: Not Detected.This assay is designed to detect SARS-CoV-2 based on replication of specific regions of the RNA from the SARS-CoV-2 virus. A Not Detected result does not preclude 2019-nCoV infection since the adequacy of sample collection and/or low viral burden may result in presence of viral nucleic acids below the clinical sensitivity of this test method. Fact sheet for providers: https://www.fda.gov/media/113581/downloadFact sheet for patients: https://www.fda.gov/media/183073/downloadThis test has received FDA Emergency Use Authorization [EUA] and has been verified by [facility] ([facility]). This test is only authorized for the duration of time that circumstances exist to justify the authorization of the emergency use of in vitro diagnostic tests for the detection of SARS-CoV-2 virus and/or diagnosis of COVID-19 infection under section 564(b)(1) of the Act, 21 U.S.C. 360bbb-3(b)(1), unless the authorization is terminated or revoked sooner. [facility] is certified under CLIA-88 as qualified to perform high complexity testing. Testing is performed in the [facility] laboratories [place] [address] [place] [address]. BASIC METABOLIC PANELon 05-0 Anion gap [Moles/Vol] 11 mmol/L Normal 10 - 20 [facility] Comment on above: Performed By: #### B MP #### [address] [id number] Calcium [Mass/Vol] 9.4 mg/dL Normal 8.6 - 10.3 [facility] Comment on above: Performed By: #### B MP #### [address] [id number] Chloride [Moles/Vol] 107 mmol/L Normal 98 - 107 [facility] Comment on above: Performed By: #### B MP #### [address] [id number] Creatinine [Mass/Vol] 1.17 mg/dL High 0.50 - 1.05 [facility] Comment on above: Performed By: #### B MP #### [address] [id number] GFR- AM. 58 mL/min/1.73m2 Abnormal >60 [facility] Comment on above: Result Comment: CALC ULATIONS OF ESTIMATED GFR ARE PERFORMED USING THE MDRD STUDY EQUATION FOR THE IDMS-TRACEABLE CREATININE METHODS. CLIN CHEM 2007;53:766-72 Performed By: #### B MP #### [address] [id number] GFR-NON AM. 48 mL/min/1.73m2 Abnormal >60 [facility] Comment on above: Performed By: #### B MP #### [address] [id number] Glucose [Mass/Vol] 123 mg/dL High 74 - 99 [facility] Comment on above: Performed By: #### B MP #### [address] [id number] HCO3 (Bld) [Moles/Vol] 29 mmol/L Normal 21 - 32 [facility] Comment on above: Performed By: #### B MP #### [address] [id number] Potassium [Moles/Vol] 4.1 mmol/L Normal 3.5 - 5.3 [facility] Comment on above: Performed By: #### B MP #### [address] [id number] Sodium [Moles/Vol] 143 mmol/L Normal 136 - 145 [facility] Comment on above: Performed By: #### B MP #### [address] [id number] Urea nitrogen [Mass/Vol] 21 mg/dL Normal 6 - 23 [facility] Comment on above: Performed By: #### B MP #### [address] [id number] CBCon 12-17-2020 Erythrocyte distribution width (RBC) [Ratio] 12.8 % Normal 11.5 - 14.5 [facility] Comment on above: Performed By: #### L IPAS #### [address] [id number] Hematocrit (Bld) [Volume fraction] 43.2 % Normal 36.0 - 46.0 [facility] Comment on above: Performed By: #### L IPAS #### [address] [id number] Hemoglobin (Bld) [Mass/Vol] 13.8 g/dL Normal 12.0 - 16.0 [facility] Comment on above: Performed By: #### L IPAS #### [address] [id number] MCHC (RBC) [Mass/Vol] 31.9 g/dL Low 32.0 - 36.0 [facility] Comment on above: Performed By: #### L IPAS #### [address] [id number] MCV (RBC) [Entitic vol] 94 fL Normal 80 - 100 [facility] Comment on above: Performed By: #### L IPAS #### [address] [id number] Platelets (Bld) [#/Vol] 250 10*3/uL Normal 150 - 450 [facility] Comment on above: Performed By: #### L IPAS #### [address] [id number] RBC 4.58 x10E12/L Normal 4.00 - 5.20 [facility] Comment on above: Performed By: #### L IPAS #### [address] [id number] WBC (Bld) [#/Vol] 6.5 10*3/uL Normal 4.4 - 11.3 [facility] Comment on above: Performed By: #### L IPAS #### [address] [id number] Laboratory - Chemistry and C hemistry - challengeon 12-17-2020 Anion gap [Moles/Vol] 11 mmol/L 10 - 20 [facility] 201 DO Work Phone: Calcium [Mass/Vol] 9.4 mg/dL 8.6 - 10.3 -Madelin kristin [facility] 201 DO Work Phone: Chloride [Moles/Vol] 107 mmol/L 98 - 107 -E lyria [facility] 201 DO Work Phone: CO2 [Moles/Vol] 29 mmol/L 21 - 32 -[place] [facility] 201 DO Work Phone: Creatinine [Mass/Vol] 1.17 mg/dL above high threshold See Below [facility] 201 DO Work Phone: Comment on above: Reference Range: 0.5 0 - 1.05 Glucose [Mass/Vol] 123 mg/dL above high threshold 74 - 99 -[place] [facility] 201 DO Work Phone: Potassium [Moles/Vol] 4.1 mmol/L 3.5 - 5.3 - [place] [facility] 201 DO Work Phone: Sodium [Moles/Vol] 143 mmol/L 136 - 145 -[facility] DO Work Phone: Urea nitrogen [Mass/Vol] 21 mg/dL 6 - 23 -[facility] [address] DO Work Phone: Laboratory - Hematology and Cell countson 12-17-2020 Erythrocyte distribution width (RBC) [Ratio] 12.8 % See Below -[facility]- [place] 201 DO Work Phone: Comment on above: Reference Range: 11. 5 - 14.5 Hematocrit (Bld) [Volume fraction] 43.2 % See Below [facility] 201 DO Work Phone: Comment on above: Reference Range: 36. 0 - 46.0 Hemoglobin (Bld) [Mass/Vol] 13.8 g/dL See Below -[facility]- [place] 201 DO Work Phone: Comment on above: Reference Range: 12. 0 - 16.0 MCHC (RBC) [Mass/Vol] 31.9 g/dL below low threshold See Below [facility] 201 DO Work Phone: Comment on above: Reference Range: 32. 0 - 36.0 MCV (RBC) [Entitic vol] 94 fL 80 - 100 -[facility] [facility]- [facility] DO Work Phone: Platelets (Bld) [#/Vol] 250 10*3/uL 150 - 450 -[facility]- [facility] 201 DO Work Phone: RBC (Bld) [#/Vol] 4.58 {x10E12/L} See Below [facility] 201 DO Work Phone: Comment on above: Reference Range: 4.0 0 - 5.20 WBC (Bld) [#/Vol] 6.5 10*3/uL 4.4 - 11.3 -[facility]- [place] 201 DO Work Phone: No Panel Informationon 12-17 58 {mL/min/1.73m2} Abnormal >60 [facility] [place] 201 DO Work Phone: Comment on above: CALCULATIONS OF GWENDOLYN MATED GFR ARE PERFORMED USING THE MDRD STUDY EQUATION FOR THE IDMS-TRACEABLE CREATININE METHODS. CLIN CHEM 2007;53:766-72 48 {mL/min/1.73m2} Abnormal >60 [facility] [place] 201 DO Work Phone: Follow Up (General Surgery)o n 12-09-2020 Follow Up (General Surgery) Diagnoses/Problems GERD (gastroesophageal reflux disease) (530.81) (K21.9) Hiatal hernia (553.3) (K44.9) Patient Discussion/Summary you will be scheduled for hiatal hernia surgery COVID-19 Risk Consent for: Provider has reviewed the risk of deedee COVID-19 and the impact during the post-operative or post-procedure recovery process. Provider Impressions 55-year-old obese patient (BMI: 40) with a hiatal hernia who has persistent heartburn, acid reflux, cough and dysphagia despite Protonix 40 mg BID. Work-ups have included EGD in 2018 and 2019 showing hiatal hernia, gastritis, duodenitis and resolution of Ramirez's esophagus. Esophageal manometry shows normal LES length, pressure, relaxation, small hiatal hernia and only 20% bolus transit completion. 48 hour pH Villegas test off PPI shows high acid exposure at 6.7%, DeMeester score of 25.1 and 100% positive correlation between symptoms of heartburn, chest pain, cough and acid exposure. I discussed all of these findings with the patient and her sister. She is consented for laparoscopic hiatal hernia repair with Toupet wrap (over 54F bougie). I explained to them the procedure, the risks and complications which include but not limited to bleeding, infection, bowel injury, excessive flatus or gas, dysphagia, esophageal injury, vagus nerve injury, recurrence of the hernia giving her obesity, failure of symptoms to resolve, vascular injury, Covid 19 infection, blood clot and need for another surgery or endoscopic procedure. I will order CBC, BMP and EKG. All questions answered and she is willing to proceed. Chief Complaint Patient is here for a follow up visit for Villegas Results 11/27/2020 History of Present [id number] patient well-known to me with symptomatic hiatal hernia. Her symptoms consist of choking after solid meals, foods getting stuck, heartburn, acid reflux, coughing after meals and substernal pain after meal. EGD on June 18, 2019 showed small hiatal hernia, gastritis, duodenitis and GE junction polyp with pathology showing reactive gastropathy, duodenitis and extensive intestinal metaplasia and mild reflux esophagitis. Repeat EGD on February 11, 2020 showed reactive gastropathy and resolution of the intestinal metaplasia at the GE junction. She has been on Protonix 40 mg BID which is only helping the heartburn during the day but not at night. Esophageal manometry on September 292020 shows normal LES length, pressure, relaxation, small hiatal hernia, esophageal body with 60% peristalsis and contraction amplitude but bolus transit was complete in 20% of swallow with finding concerning for esophagogastric junction outlet obstruction. 48 hour pH Villegas test off PPI shows high acid exposure at 6.7%, DeMeester score of 25.1 and 100% positive correlation between symptoms of heartburn, chest pain, cough and acid exposure. 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) GERD (gastroesophageal reflux disease) (530.81) (K21.9) Gout (274.9) (M10.9) Hiatal hernia (553.3) (K44.9) Hyperlipidemia (272.4) (E78.5) Right flank pain (789.09) (R10.9) Right upper quadrant abdominal pain (789.01) (R10.11) S/P laparoscopic cholecystectomy (V45.89) (Z90.49) Surgical History History of Cholecystectomy laparoscopic History of Coronary artery stent placement History of Esophagogastroduodenoscopy History of Hysterectomy History of Right hemicolectomy Family History Family history of malignant neoplasm of colon (V16.0) (Z80.0) Mother: DX age 53, s/p chemo, colon surgery, living. Maternal grandmother: DX age 60's, s/p colon surgery, chemo and radiation, Family history of malignant neoplasm of colon (V16.0) (Z80.0) Mother: DX age 53, s/p chemo, colon surgery, living. Maternal grandmother: DX age 60's, s/p colon surgery, chemo and radiation, Family history of lung cancer (V16.1) (Z80.1) Family history of throat cancer (V16.0) (Z80.0) Family history of breast cancer (V16.3) (Z80.3) Social History Currently working Does not use illicit drugs (V49.89) (Z78.9) Never a smoker No alcohol use Allergies allopurinol Recorded By: Linda Bernard; 01/08/2020 9:43:13 AM Sulfa Drugs Recorded By: Linda Bernard; 06/12/2019 2:40:16 PM Current Meds Medication NameInstruction Bystolic 10 MG Oral Tablet2 TABLETS IN THE MORNING AND 1 AT BEDTIME. Colchicine 0.6 MG Oral TabletTAKE 1 TABLET DAILY DIRECTED. Losartan Potassium 25 MG Oral TabletTAKE 1 TABLET DAILY DIRECTED. metFORMIN HCl ER 500 MG Oral Tablet Extended Release 24 HourTAKE 1 TABLET DAILY DIRECTED. Pantoprazole Sodium 40 MG Oral Tablet Delayed ReleaseTAKE 1 TABLET TWICE DAILY 30 MINUTES BE (more content not included)... Normal [facility] GLUCOSE-[facility] 11-23-2020 Glucose [Mass/Vol] 124 mg/dL High 74 - 99 [facility] Comment on above: Performed By: #### G MICHELLE #### [facility] [address] [place] [address] Order Reconciliationon 11-23 Order Reconciliation Page 1 Discharge Reconciliation Document Reconciliation Type: Discharge requested on behalf of Marvel Reyna (Physician) done by Marvel Reyna) Discharge - Reconciliation: 23-Nov-2020 09:49 by: Marvel Ryena) Home Medications EnteredHOME MEDICATIONS AT DISCHARGE DateReconciliation Comment/ Additional Information aspirin 81 mg oral tablet orally once a day 23-Nov-2020 08:08 aspirin 81 mg oral tablet orally once a day 23-Nov-2020 08:08 aspirin 81 mg oral tablet is continued as aspirin 81 mg oral tablet Bystolic 10 mg oral tablet 1 tab(s) orally once a day (at bedtime) 17-Jun-2019 13:06 Bystolic 10 mg oral tablet 1 tab(s) orally once a day (at bedtime) 17-Jun-2019 13:06 Bystolic 10 mg oral tablet is continued as Bystolic 10 mg oral tablet Bystolic 10 mg oral tablet 2 tab(s) orally once a day in the morning-pt instructed to take on day of surgery 17-Jun-2019 13:05 Bystolic 10 mg oral tablet 2 tab(s) orally once a day in the morning-pt instructed to take on day of surgery 17-Jun-2019 13:05 Bystolic 10 mg oral tablet is continued as Bystolic 10 mg oral tablet colchicine 0.6 mg oral tablet 1 tab(s) orally once a day (at bedtime) 23-Nov-2020 08:04 colchicine 0.6 mg oral tablet 1 tab(s) orally once a day (at bedtime) 23-Nov-2020 08:04 colchicine 0.6 mg oral tablet is continued as colchicine 0.6 mg oral tablet Crestor 40 mg oral tablet 1 tab(s) orally once a day (at bedtime) 23-Nov-2020 08:04 Crestor 40 mg oral tablet 1 tab(s) orally once a day (at bedtime) 23-Nov-2020 08:04 Crestor 40 mg oral tablet is continued as Crestor 40 mg oral tablet losartan 25 mg oral tablet 1 tab(s) orally once a day (at bedtime) 23-Nov-2020 08:05 losartan 25 mg oral tablet 1 tab(s) orally once a day (at bedtime) 23-Nov-2020 08:05 losartan 25 mg oral tablet is continued as losartan 25 mg oral tablet metFORMIN 500 mg oral tablet, extended release orally 2 times a day 23-Nov-2020 08:07 metFORMIN 500 mg oral tablet, extended release orally 2 times a day 23-Nov-2020 08:07 metFORMIN 500 mg oral tablet, extended release is continued as metFORMIN 500 mg oral tablet, extended release nitroglycerin 0.4 mg sublingual tablet 1 tab(s) sublingual every 5 minutes, As Needed 23-Nov-2020 08:07 nitroglycerin 0.4 mg sublingual tablet 1 tab(s) sublingual every 5 minutes, As Needed 23-Nov-2020 08:07 nitroglycerin 0.4 mg sublingual tablet is continued as nitroglycerin 0.4 mg sublingual tablet pantoprazole 40 mg oral delayed release tablet 1 tab(s) orally 2 times a day 05-Feb-2020 14:07 pantoprazole 40 mg oral delayed release tablet 1 tab(s) orally 2 times a day 05-Feb-2020 14:07 pantoprazole 40 mg oral delayed release tablet is continued as pantoprazole 40 mg oral delayed release tablet ProAir HFA 90 mcg/inh inhalation aerosol 2 puff(s) inhaled 4 times a day, As Needed-instructed to bring in on day of surgery, instructed ok to use AM of surgery 17-Jun-2019 13:07 ProAir HFA 90 mcg/inh inhalation aerosol 2 puff(s) inhaled 4 times a day, As Needed-instructed to bring in on day of surgery, instructed ok to use AM of surgery 17-Jun-2019 13:07 ProAir HFA 90 mcg/inh inhalation aerosol is continued as ProAir HFA 90 mcg/inh inhalation aerosol All Active Home Medications at time of Discharge Reconciliation: 23-Nov-2020 09:49 aspirin 81 mg oral tablet orally once a day Bystolic 10 mg oral tablet 1 tab(s) orally once a day (at bedtime) Bystolic 10 mg oral tablet 2 tab(s) orally once a day in the morning-pt instructed to take on day of surgery colchicine 0.6 mg oral tablet 1 tab(s) orally once a day (at bedtime) Crestor 40 mg oral tablet 1 tab(s) orally once a day (at bedtime) losartan 25 mg oral tablet 1 tab(s) orally once a day (at bedtime) metFORMIN 500 mg oral tablet, extended release orally 2 times a day nitroglycerin 0.4 mg sublingual tablet 1 tab(s) sublingual every 5 minutes, As Needed pantoprazole 40 mg oral delayed release tablet 1 tab(s) orally 2 times a day ProAir HFA 90 mcg/inh inhalation aerosol 2 puff(s) inhaled 4 times a day, As Needed-instructed to bring in on day of surgery, instructed ok to use AM of surgery Normal [facility] CORONAVIRUS 2019, SCREEN ASY MPTOMATICon 11-20-2020 SARS-CoV-2 (COVID-19) RNA CAMILA+probe Ql (Unsp spec) Not detected Normal Not Detected [facility] Comment on above: Result Comment: . This assay is designed to detect the N, ORF1ab and/or S genes of SARS-CoV-2 via nucleic acid amplification. A Negative (NOT DETECTED) result does not preclude 2019-nCoV infection since the adequacy of sample collection and/or low viral burden may result in presence of viral nucleic acids below the clinical sensitivity of this test method. Negative (NOT DETECTED) result should not be used as the sole basis for treatment or other patient management decisions. Rather negative results should be combined with clinical observations, patient history, and epidemiological information to make patient management decisions. Fact sheet for providers: https://www.fda.gov/media/197497/download Fact sheet for patients: https://www.fda.gov/media/422040/download This test has received FDA Emergency Use Authorization (EUA) and has been verified by [facility] ([facility]). This test is only authorized for the duration of time that circumstances exist to justify the authorization of the emergency use of in vitro diagnostic tests for the detection of SARS-CoV-2 virus and/or diagnosis of COVID-19 infection under section 564(b)(1) of the Act, 21 U.S.C. 360bbb-3(b)(1), unless the authorization is terminated or revoked sooner. [facility] is certified under CLIA-88 as qualified to perform high complexity testing. Testing is performed in the [facility] laboratories located at [address] [place] [address]. Performed By: #### C OVSC #### [place] [address] Lab Specimen Source Nasal, Nasopharyngeal Normal [facility] Comment on above: Performed By: #### C OVSC #### [facility] [id number] [place] [address] Coronavirus 2019 RNA by PCR, Screening Asymptomticon 11-20-2020 Coronavirus 2019 RNA by PCR, Screening Asymptomtic NOT DETECTED Normal See Below [facility] francine SJW 450 DO Work Phone: Comment on above: SOURCE: Nasal, Nasop haryngealReference Range: Not Detected.This assay is designed to detect the N, ORF1ab and/or S genes of SARS-CoV-2 via nucleic acid amplification. A Negative (NOT DETECTED) result does not preclude 2019-nCoV infection since the adequacy of sample collection and/or low viral burden may result in presence of viral nucleic acids below the clinical sensitivity of this test method. Negative (NOT DETECTED) result should not be used as the sole basis for treatment or other patient management decisions. Rather negative results should be combined with clinical observations, patient history, and epidemiological information to make patient management decisions.Fact sheet for providers: https://www.fda.gov/media/354451/downloadFact sheet for patients: https://www.fda.gov/media/087132/downloadThis test has received FDA Emergency Use Authorization (EUA) and has been verified by [facility] ([facility]). This test is only authorized for the duration of time that circumstances exist to justify the authorization of the emergency use of in vitro diagnostic tests for the detection of SARS-CoV-2 virus and/or diagnosis of COVID-19 infection under section 564(b)(1) of the Act, 21 U.S.C. 360bbb-3(b)(1), unless the authorization is terminated or revoked sooner. [facility] is certified under CLIA-88 as qualified to perform high complexity testing. Testing is performed in the [facility] laboratories located at [address] [place] [address]. Covid 19 Resultson 1 SARS-CoV-2 (COVID-19) RNA CAMILA+probe Ql (Unsp spec) NEGATIVE COVID-19 Test Coronaviruses are common world-wide and are the cause of many common colds. SARS-COV2 is a new coronavirus that began circulating worldwide in 2019 so we are calling it COVID-19. It has been estimated that four out of five patients with COVID-19 will recover at home without the need for medical attention. Symptoms of COVID-19 may include cough, fever, shortness of breath, loss of taste or smell and other flu-like symptoms including chills, sore muscles, sore throat, and headache. Severe illness is more common in older people and people with other health problems such as high blood pressure, obesity, and immune system problems. If the test is positive, you have COVID-19. You will be contacted by the ordering physicians office and instructed to remain on home isolation, in accordance with CDC guidelines. You may also be contacted by the [facility] to see if any of your close contacts may have been exposed to the virus and need to quarantine. If the test is negative, you likely do not have COVID-19 at this time, but you still may have a different illness that can spread to other people (like Influenza, or the Flu) and could still be at risk for getting COVID-19. We recommend that you stay away from other people to limit the spread of illness until your symptoms are improving and you are fever-free for 24 hours without the use of fever lowering medications such as acetaminophen or ibuprofen. No test is 100% accurate so if you are still concerned you may have COVID-19, talk to your doctor about the need to continue to stay away from others. Medicines Unless your provider told you not to use the following: Acetaminophen (Tylenol and others) is generally safe. Anti-inflammatory medications, such as Ibuprofen (Advil or Motrin) or Naproxen (Aleve) can also be used. Amcb-jbn-cyaunkw cough and cold medicines can be used according to the instructions on the package. Some zdxf-fje-kwxhzac medicines also contain acetaminophen. Make sure you are not taking more than your recommended dose. For those not hospitalized, there is no specific treatment available for this illness. Antibiotics do not treat Coronaviruses. Follow-Up Follow up with your doctor by scheduling a virtual visit or consider follow-up at one of our urgent care fever clinics. If you are having difficulty breathing, or are very weak and having difficulty standing, this is a medical emergency. Call 911 or have someone take you to the nearest emergency room immediately. If possible, wear a facemask. Additional guidance from the CDC for patients who tested POSITIVE for COVID-19 How to isolate: Isolate yourself in a specific room at home and limit your contact with others. Use a separate bathroom from other members of the household, when possible. Leave home only to get essential medical care. Do not go to work, school or public areas. Avoid using public transportation, ride-sharing, or taxis. Restrict contact with pets and other animals. If you must care for your pet or be around animals while you are sick, wash your hands before and after your interaction and wear a facemask. Make sure that shared spaces in the home have good airflow, such as by an air conditioner or an opened window, weather permitting. Personal Hygiene Procedures: Wear a face mask when in the same room as other people or pets. If a face mask interferes with your breathing, others should wear a mask when sharing space with you. Frequent hand-washing: wash your hands with soap and water for at least 20 seconds. If soap and water are not available, use alcohol-based hand set up person. Avoid touching your eyes, nose, and mouth with unwashed hands. Household Hygiene Procedures: Avoid sharing personal household items such as dishes, glassware, cups, eating utensils, towels or bedding with other people or pets in your home. After use, these items should be washed with soap and hot water. Disinfect all high-touch surfaces every day with antibacterial cleaning solutions such as Lysol wipes, bleach, cleansers, etc. High-touch surfaces include tabletops, doorknobs, bathroom fixtures, toilets, phones, keyboards, tablets and bedside tables. Immediately clean any surfaces that may have blood, poop or body fluids on them, using antibacterial cleaning solutions such as Lysol wipes, bleach, cleansers, etc. If clothing or bedding come into contact with blood, poop or body fluids, they should be washed immediately. Follow the directions on the laundry detergent and clothing labels but hot water is recommended when possible. Stopping home isolation precautions: If possible, consult your doctor before stopping home isolation precautions. According to the CDC, you can discontinue home isolation precautions when you have met both of these criteria: Your fever and respiratory symptoms have been gone for 24 mima (more content not included)... Normal [facility] GI ESOPHAGRAMon 10-29-2020 GI ESOPHAGRAM Patient Name: JOY HAWTHORNE STUDY: GI ESOPHAGRAM; 10/29/2020 9:29 am INDICATION: Dysphagia, unspecified. COMPARISON: CT abdomen and pelvis with contrast 12 June 2019 ACCESSION NUMBER(S): [id number] ORDERING CLINICIAN: TINO SHAW TECHNIQUE: Biphasic barium esophagram. Fluoroscopy time: 1 Minutes, 30 seconds FINDINGS: Postsurgical change: Negative Hiatal Hernia: Small, sliding Stricture: Negative. No fixed esophageal stricture or other narrowing. Mucosa: Negative. No evidence of esophageal or gastric cardia ulceration, polyp, mass or other mucosal abnormality. Diverticulum: Negative Ring / web: Negative Gastroesophageal Reflux: Negative Esophageal Motility: Abnormal. At the junction of the proximal and middle thirds of the thoracic esophagus, the primary peristaltic wave becomes quite weak, with consequent significant distal thoracic esophageal stasis and episodic retrograde escape 13 mm Barium Tablet: Transit of the 13 mm barium tablet was normal. Other: N / A IMPRESSION: ESOPHAGEAL DYSMOTILITY SMALL ENTIRELY SLIDING HIATAL HERNIA OF DOUBTFUL CLINICAL SIGNIFICANCE NO GASTROESOPHAGEAL REFLUX ELICITED, DESPITE PROVOCATIVE/VALSALVA MANEUVER Electronically signed by: MATILDE FENG MD [facility] Otheron 10-29-2020 XR Esophagus Views W contrast PO Interpreted by: MATILDE FENG10/29/20 10:39MRN: [id number] Name: JOY HAWTHORNE STUDY:GI ESOPHAGRAM; 10/29/2020 9:29 am INDICATION:Dysphagia, unspecified. COMPARISON:CT abdomen and pelvis with contrast 12 June 2019 ORDERING CLINICIAN:TINO SHAW TECHNIQUE:Biphasic barium esophagram. Fluoroscopy time: 1 Minutes, 30 seconds FINDINGS:Postsurgical change: Negative Hiatal Hernia: Small, sliding Stricture: Negative. No fixed esophageal stricture or othernarrowing. Mucosa: Negative. No evidence of esophageal or gastric cardiaulceration, polyp, mass or other mucosal abnormality. Diverticulum: Negative Ring / web: Negative Gastroesophageal Reflux: Negative Esophageal Motility: Abnormal. At the junction of the proximal andmiddle thirds of the thoracic esophagus, the primary peristaltic wavebecomes quite weak, with consequent significant distal thoracicesophageal stasis and episodic retrograde escape 13 mm Barium Tablet: Transit of the 13 mm barium tablet was normal. Other: N / A IMPRESSION:ESOPHAGEAL DYSMOTILITY SMALL ENTIRELY SLIDING HIATAL HERNIA OF DOUBTFUL CLINICAL SIGNIFICANCE NO GASTROESOPHAGEAL REFLUX ELICITED, DESPITE PROVOCATIVE/VALSALVAMANEUVE RElectronically signed by: MATILDE FENG 10/29/20 10:39 Normal [facility]am[facility] 450 DO Work Phone: Follow Up (General Surgery)o n 10-21-2020 Follow Up (General Surgery) Diagnoses/Problems Dysphagia (787.20) (R13.10) Gastropathy (537.9) (K31.9) Ramirez's esophagus without dysplasia (530.85) (K22.70) Orders Dysphagia Esophageal VILLEGAS pH Capsule; Status:Hold For - Scheduling; Requested for:21Oct2020; Perform:[facility] [place] [facility]; Order Comments:Please do biopsies of esophagus during placement of Villegas. Thanks; Due:19Jan2021;Ordered; For:Dysphagia; Ordered By:Tino Shaw; Patient competent to provide consent? : Yes-pt mentally competent to provide consent Xray Esophagram; Status:Hold For - Scheduling; Requested for:21Oct2020; Perform:[facility]; Due:19Jan2021;Ordered; For:Dysphagia; Ordered By:Tino Shaw; Radiologist to Determine Optimal Study : Y What are the patient's signs and symptoms? : dysphagia Patient Discussion/Summary I will obtain esophagram and Villegas PH study Provider Impressions 55 y/o patient with known history of small hiatal hernia, gastritis, duodenitis and esophagogastric junction outflow obstruction on esophageal manometry. Overall, her heartburn and acid reflux have gotten better but dysphagia is persistent. I have reviewed the esophageal manometry which is showing normal LES length, pressure and normal relaxation; small hiatal hernia, 60% peristalsis and contraction amplitude, bolus transit is complete in 20% of swallows. I discussed the patient case with Dr. Viet Ford at [facility] about further workup and management. We discussed possible etiologies like hiatal hernia, eosinophilic esophagitis etc. Achalasia very unlikely given the normal median IRP (normal LES relaxation). I will obtain Villegas pH study off PPI and will also request for multiple esophageal biopsies to be done to rule out eosinophilic esophagitis. I will also obtain esophagram. I told patient and sister that I would not recommend hiatal hernia repair at this time until after further workups are done given the EJ G outflow obstruction. On the EGD, there was a small hiatal hernia but no stricture or mechanical obstruction. All questions answered. Chief Complaint Patient is here to discuss esophageal manometry results. History of Present [id number]-ukgj-zcx patient who I have been following since June 2019 for dysphasia, acid reflux and heartburn. EGD on June 18, 2019 showed small hiatal hernia, polyp at the GE junction, gastritis, duodenitis with pathology showing reactive gastropathy, negative H. pylori, GE junction polyp showing extensive intestinal metaplasia, mild reflux esophagitis. Repeat EGD on February 11, 2020 showed reactive gastropathy and resolution of the intestinal metaplasia. She has been on Protonix 40 mg twice a day which is helping her heartburn and acid reflux. She has persistent dysphasia especially with solid foods occurring 2 times per week. When I eat food, I choke and then bring it up . High resolution esophageal manometry on 09/29/2020: LES with normal length, pressure and relaxation, small hiatal hernia, esophageal body with 60% peristalsis and contraction amplitude, bolus transit is complete in 20% of swallows. Findings were concerning for esophagogastric junction outflow obstruction. She is here with her sister to discuss the manometry finding. 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) GERD (gastroesophageal reflux disease) (530.81) (K21.9) Gout (274.9) (M10.9) Hyperlipidemia (272.4) (E78.5) Right flank pain (789.09) (R10.9) Right upper quadrant abdominal pain (789.01) (R10.11) S/P laparoscopic cholecystectomy (V45.89) (Z90.49) Surgical History History of Cholecystectomy laparoscopic History of Coronary artery stent placement History of Esophagogastroduodenoscopy History of Hysterectomy History of Right hemicolectomy Family History Family history of malignant neoplasm of colon (V16.0) (Z80.0) Mother: DX age 53, s/p chemo, colon surgery, living. Maternal grandmother: DX age 60's, s/p colon surgery, chemo and radiation, Family history of malignant neoplasm of colon (V16.0) (Z80.0) Mother: DX age 53, s/p chemo, colon surgery, living. Maternal grandmother: DX age 60's, s/p colon surgery, chemo and radiation, Family history of lung cancer (V16.1) (Z80.1) Family history of throat cancer (V16.0) (Z80.0) Family history of breast cancer (V16.3) (Z80.3) Social History Currently working Does not use illicit drugs (V49.89) (Z78.9) Never a smoker No alcohol use Allergies allopurinol Recorded By: Linda Beranrd; 01/08/2020 9:43:13 AM [facility] Recorded By: Linda Bernard; 06/12/2019 2:40:16 PM Current Meds Medication NameInstruction Bystolic 10 (more content not included)... Normal [facility]ollo CORONAVIRUS 2019, SCREEN ASY MPTOMATICon 09-27-2020 SARS-CoV-2 (COVID-19) RNA CAMILA+probe Ql (Unsp spec) Not detected Normal Not Detected [facility] Comment on above: Result Comment: . This assay is designed to detect the N, ORF1ab and/or S genes of SARS-CoV-2 via nucleic acid amplification. A Negative (NOT DETECTED) result does not preclude 2019-nCoV infection since the adequacy of sample collection and/or low viral burden may result in presence of viral nucleic acids below the clinical sensitivity of this test method. Negative (NOT DETECTED) result should not be used as the sole basis for treatment or other patient management decisions. Rather negative results should be combined with clinical observations, patient history, and epidemiological information to make patient management decisions. Fact sheet for providers: https://www.fda.gov/media/491882/download Fact sheet for patients: https://www.fda.gov/media/817457/download This test has received FDA Emergency Use Authorization (EUA) and has been verified by [facility] ([facility]). This test is only authorized for the duration of time that circumstances exist to justify the authorization of the emergency use of in vitro diagnostic tests for the detection of SARS-CoV-2 virus and/or diagnosis of COVID-19 infection under section 564(b)(1) of the Act, 21 U.S.C. 360bbb-3(b)(1), unless the authorization is terminated or revoked sooner. [facility] is certified under CLIA-88 as qualified to perform high complexity testing. Testing is performed in the [facility] laboratories located at [address] [place] [address]. Performed By: #### C [facility] #### [place] [address] Lab Specimen Source Nasal, Nasopharyngeal Normal [facility] Comment on above: Performed By: #### C [facility] #### [place] [address] Coronavirus 2019 RNA by PCR, Screening Asymptomticon 09-27-2020 Coronavirus 2019 RNA by PCR, Screening Asymptomtic NOT DETECTED Normal See Below [place] [id number] Work Phone: Comment on above: SOURCE: Nasal, Nasop haryngealReference Range: Not Detected.This assay is designed to detect the N, ORF1ab and/or S genes of SARS-CoV-2 via nucleic acid amplification. A Negative (NOT DETECTED) result does not preclude 2019-nCoV infection since the adequacy of sample collection and/or low viral burden may result in presence of viral nucleic acids below the clinical sensitivity of this test method. Negative (NOT DETECTED) result should not be used as the sole basis for treatment or other patient management decisions. Rather negative results should be combined with clinical observations, patient history, and epidemiological information to make patient management decisions.Fact sheet for providers: https://www.fda.gov/media/767681/downloadFact sheet for patients: https://www.fda.gov/media/258962/downloadThis test has received FDA Emergency Use Authorization (EUA) and has been verified by [facility] ([facility]). This test is only authorized for the duration of time that circumstances exist to justify the authorization of the emergency use of in vitro diagnostic tests for the detection of SARS-CoV-2 virus and/or diagnosis of COVID-19 infection under section 564(b)(1) of the Act, 21 U.S.C. 360bbb-3(b)(1), unless the authorization is terminated or revoked sooner. [facility] is certified under CLIA-88 as qualified to perform high complexity testing. Testing is performed in the [facility] laboratories located at [address] [place] [address]. Covid 19 Resultson 1 SARS-CoV-2 (COVID-19) RNA CAMILA+probe Ql (Unsp spec) NEGATIVE COVID-19 Test Coronaviruses are common world-wide and are the cause of many common colds. SARS-COV2 is a new coronavirus that began circulating worldwide in 2019 so we are calling it COVID-19. It has been estimated that four out of five patients with COVID-19 will recover at home without the need for medical attention. Symptoms of COVID-19 include cough, fever, shortness of breath, loss of taste or smell and other flu-like symptoms including chills, sore muscles, sore throat, and headache. Severe illness is more common in older people and people with other health problems such as high blood pressure, obesity, and immune system problems. If the test is positive, you have COVID-19. You will be contacted by the ordering physicians office and instructed to remain on home isolation, in accordance with CDC guidelines. You may also be contacted by the [facility] to see if any of your close contacts may have been exposed to the virus and need to quarantine. If the test is negative, you likely do not have COVID-19 at this time, but you still may have a different illness that can spread to other people (like Influenza, or the Flu) and could still be at risk for getting COVID-19. We recommend that you stay away from other people to limit the spread of illness until your symptoms are improving and you are fever-free for 24 hours without the use of fever lowering medications such as acetaminophen or ibuprofen. No test is 100% accurate so if you are still concerned you may have COVID-19, talk to your doctor about the need to continue to stay away from others. Medicines Acetaminophen (Tylenol and others) is generally safe. Anti-inflammatory medications, such as Ibuprofen (Advil or Motrin) or Naproxen (Aleve) can also be used. Racv-pgn-mynzkjn cough and cold medicines can be used according to the instructions on the package. Some uipx-dlj-dexmwke medicines also contain acetaminophen. Make sure you are not taking more than your recommended dose For those not hospitalized, there is no specific treatment available for this illness. Antibiotics do not treat Coronaviruses. Follow-Up Follow up with your doctor by scheduling a virtual visit or consider follow-up at one of our urgent care fever clinics. If you are having difficulty breathing, or are very weak and having difficulty standing, this is a medical emergency. Call 911 or have someone take you to the nearest emergency room immediately. If possible, wear a facemask. Additional guidance from the CDC for patients who tested POSITIVE for COVID-19 How to isolate: Isolate yourself in a specific room at home and limit your contact with others. Use a separate bathroom from other members of the household, when possible. Leave home only to get essential medical care. Do not go to work, school or public areas. Avoid using public transportation, ride-sharing, or taxis. Restrict contact with pets and other animals. If you must care for your pet or be around animals while you are sick, wash your hands before and after your interaction and wear a facemask. Make sure that shared spaces in the home have good airflow, such as by an air conditioner or an opened window, weather permitting. Personal Hygiene Procedures: Wear a face mask when in the same room as other people or pets. If a face mask interferes with your breathing, others should wear a mask when sharing space with you. Frequent hand-washing: wash your hands with soap and water for at least 20 seconds. If soap and water are not available, use alcohol-based hand set up person. Avoid touching your eyes, nose, and mouth with unwashed hands. Household Hygiene Procedures: Avoid sharing personal household items such as dishes, glassware, cups, eating utensils, towels or bedding with other people or pets in your home. After use, these items should be washed with soap and hot water. Disinfect all high-touch surfaces every day with antibacterial cleaning solutions such as Lysol wipes, bleach, cleansers, etc. High-touch surfaces include tabletops, doorknobs, bathroom fixtures, toilets, phones, keyboards, tablets and bedside tables. Immediately clean any surfaces that may have blood, poop or body fluids on them, using antibacterial cleaning solutions such as Lysol wipes, bleach, cleansers, etc. If clothing or bedding come into contact with blood, poop or body fluids, they should be washed immediately. Follow the directions on the laundry detergent and clothing labels but hot water is recommended when possible. Stopping home isolation precautions: If possible, consult your doctor before stopping home isolation precautions. According to the CDC, you can discontinue home isolation precautions when you have met both of these criteria: Your fever and respiratory symptoms have been gone for 24 hours without the use of any medicines like ibuprofen (Motrin) (more content not included)... Normal [facility] Follow Up (General Surgery)o n 09-06-2020 Follow Up (General Surgery) Diagnoses/Problems GERD (gastroesophageal reflux disease) (530.81) (K21.9) Gastropathy (537.9) (K31.9) Duodenitis (535.60) (K29.80) Dysphagia (787.20) (R13.10) Orders Dysphagia Esophageal Manometry; Status:Hold For - Scheduling; Requested for:06Sep2020; Perform:[facility]; Due:05Dec2020;Ordered; For:Dysphagia; Ordered By:Tino Shaw; Patient competent to provide consent? : Yes-pt mentally competent to provide consent Patient Discussion/Summary Take protonix 40 mg BID; followup in 6 months; I have ordered esophageal manometry Provider Impressions 55-year-old patient with history of gastritis, duodenitis, hiatal hernia and Ramirez's esophagus. Her GERD symptoms are improved with Protonix BID. At this time, she will continue to take the Protonix 40 mg twice a day for another 6 months. During followup, if still symptomatic with reduce dose, I will obtain PH impedance study. For the persistent dysphagia, I will obtain esophageal manometry to assess for esophageal dysmotility. On the EGDs in 2018 and 2019, only small hiatal hernia with no evidence of stricture; further recommendation after the manometry is done. All questions answered. History of Present Illness 55 y/o patient here for her 6 months followup. Known history of gastritis and duodenitis. On her initial EGD on 06/18/2019, she was noted to have small hiatal hernia, duodenitis, gastritis and polyps at the GE junction with pathology showing Ramirez's esophagus. She was started on Protonix 40 mg BID. Repeat EGD with biopsies on 02/2020 showed gastritis, duodenitis and pathology of the GE junction was normal She was supposed to take Protonix 40 mg once daily instead of twice. Per her, with the once daily, she is having break through heartburn and acid reflux therefore she is taking it twice daily. She still reports globus sensation. It feels like something is in my throat even when I am not eating . With solid meals, she reports foods getting stuck and she has to wash it down 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) GERD (gastroesophageal reflux disease) (530.81) (K21.9) Gout (274.9) (M10.9) Hyperlipidemia (272.4) (E78.5) Right flank pain (789.09) (R10.9) Right upper quadrant abdominal pain (789.01) (R10.11) S/P laparoscopic cholecystectomy (V45.89) (Z90.49) Surgical History History of Cholecystectomy laparoscopic History of Coronary artery stent placement History of Esophagogastroduodenoscopy History of Hysterectomy History of Right hemicolectomy Family History Family history of malignant neoplasm of colon (V16.0) (Z80.0) Mother: DX age 53, s/p chemo, colon surgery, living. Maternal grandmother: DX age 60's, s/p colon surgery, chemo and radiation, Family history of malignant neoplasm of colon (V16.0) (Z80.0) Mother: DX age 53, s/p chemo, colon surgery, living. Maternal grandmother: DX age 60's, s/p colon surgery, chemo and radiation, Family history of lung cancer (V16.1) (Z80.1) Family history of throat cancer (V16.0) (Z80.0) Family history of breast cancer (V16.3) (Z80.3) Social History Currently working Does not use illicit drugs (V49.89) (Z78.9) Never a smoker No alcohol use Allergies allopurinol Recorded By: Linda Bernard; 01/08/2020 9:43:13 AM [facility] Recorded By: Linda Bernard; 06/12/2019 2:40:16 PM Current Meds Medication NameInstruction Bystolic 10 MG Oral Tablet2 TABLETS IN THE MORNING AND 1 AT BEDTIME. Colchicine 0.6 MG Oral TabletTAKE 1 TABLET DAILY DIRECTED. Losartan Potassium 25 MG Oral TabletTAKE 1 TABLET DAILY DIRECTED. Pantoprazole Sodium 40 MG Oral Tablet Delayed ReleaseTAKE 1 TABLET TWICE DAILY 30 MINUTES BEFORE BREAKFAST AND DINNER. ProAir HFA 108 (90 Base) MCG/ACT Inhalation Aerosol Solution Rosuvastatin Calcium 40 MG Oral TabletTAKE 1 TABLET DAILY. Vitals Vital Signs Recorded: 06Sep2020 09:17AM Heart Rate59 Mmqyebdi916 Xecwqidcr41 Height5 ft 3 in Jpljrd648 lb BMI Cxpjnibmnf38.63 BSA Calculated2.07 Physical Exam Constitutional: no acute distress, well appearing and well nourished Pulmonary: normal respiratory effort; clear to auscultation bilaterally, no wheezes or bronchi Cardiovascular: regular rate and rhythm, no murmurs or extra-heart sounds; pedal pulses are normal; no extremities edema or varicosities, no peripheral edema Abdomen: soft, non-tender, non-distended; no organomegaly; no peritoneal sign, no hernia Lymphatic: no lymphadenopathy, Musculoskeletal: digits and nails normal without clubbing or cyanosis; Joints, bones and muscles are normal with normal range of motion; muscle strength/ (more content not included)... Normal [facility] SCREENINGon 08-30-2020 [facility] US ABD RIGHT UPPER QUADRANTo n 05-31-2020 US ABD RIGHT UPPER QUADRANT * * *Final Report* * * DATE OF EXAM: May 31 2020 8:59AM [id number] - US ABD RIGHT UPPER QUADRANT / PROCEDURE REASON: multiple diagnoses * * * * Physician Interpretation * * * * EXAMINATION: RIGHT UPPER QUADRANT ULTRASOUND CLINICAL HISTORY: Right flank pain, increased liver function test TECHNIQUE: Sonography of the right upper quadrant was performed. Images were obtained and stored in a permanent archive. MQ: URUQ_[id number] COMPARISON: 10/22/2019 RESULT: Pancreas: Normal sonographic appearance. Portions obscured: tail Liver: There is diffusely fatty liver, stable. Echotexture: Coarse Echogenicity: Increased Surface contour: Smooth Lesions: None. Biliary: No intrahepatic biliary duct dilation. CBD: 0.4 cm at the hilum. Gallbladder: Prior cholecystectomy Right Kidney: No hydronephrosis. The right kidney measures about 10.8 cm. Ascites: None. ========= IMPRESSION: HEPATIC STEATOSIS. STATUS POST CHOLECYSTECTOMY. NO SIGNIFICANT INTERVAL CHANGE SINCE 10/22/2019. 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: [facility] Transcribe Date/Time: May 31 2020 9:02A Dictated by : CAM SWIFT MD This examination was interpreted and the report reviewed and electronically signed by: CAM SWIFT MD on May 31 2020 9:04AM EST [id number] [facility] US KIDNEY/BLADDERon 05-31-20 US KIDNEY/BLADDER * * *Final Report* * * DATE OF EXAM: May 31 2020 8:45AM U 1055 - US KIDNEY/BLADDER / PROCEDURE REASON: Right flank tenderness * * * * Physician Interpretation * * * * EXAMINATION: RENAL ULTRASOUND CLINICAL HISTORY: Right flank pain TECHNIQUE: Sonography of the kidneys and urinary bladder was performed. Images were obtained and stored in a permanent archive. MQ: UR_1 COMPARISON: Abdomen CT dated 01/05/2017 RESULT: Right Kidney: -Renal length: 10.7 cm -Parenchyma: Normal parenchymal echogenicity. Normal parenchymal thickness. -Collecting system: No hydronephrosis. -Calculus: No echogenic, shadowing calculus. -Lesion: None. Left Kidney: -Renal length: 10.7 cm -Parenchyma: Normal parenchymal echogenicity. Normal parenchymal thickness. -Collecting system: No hydronephrosis. -Calculus: No echogenic, shadowing calculus. -Lesion: None. Bladder: Normal sonographic appearance. The prevoid bladder volume measures about 25 cc. Incidentally noted is diffusely fatty liver. IMPRESSION: HEPATIC STEATOSIS. NO HYDRONEPHROSIS. 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: [employer] Transcribe Date/Time: May 31 2020 8:47A Dictated by : CAM SWIFT MD This examination was interpreted and the report reviewed and electronically signed by: CAM SWIFT MD on May 31 2020 9:02AM EST [id number] Normal [facility] XR ABDOMEN 1V SUPINEon 05-26 [facility] NM CARDIAC PERF STRESS/PHARM on 05-21-2020 [facility] Post Op (General Surgery)on 03-11-2020 Post Op (General Surgery) Diagnoses/Problems Gastropathy (537.9) (K31.9) GERD (gastroesophageal reflux disease) (530.81) (K21.9) Ramirez's esophagus without dysplasia (530.85) (K22.70) Patient Discussion/Summary Decrease Protonix 40 mg once daily, follow-up in 6 months Provider Impressions I discussed with the patient the endoscopic findings as well as the pathology report. Repeat EGDs with random biopsies of the GE junction showed no evidence of Ramirez's esophagus where as last year with the polyp, the diagnosis was made. With the absence of Ramirez's esophagus on this repeat EGD, I will decrease her Protonix to 40 mg once daily for about 6 months and she will follow up during that time to discuss whether another endoscopic evaluation is warranted vs treating based on symptoms. All questions were answerd. Chief Complaint Patient is here for POV of EGD. History of Present IllnessThe patient is here in follow-up. On June 20 2019, she underwent EGD with biopsies. She was noted to have a 2-3 mm polyp in the distal esophagus. Biopsy showed Ramirez's esophagus without dysplasia. She has been on Protonix 40 mg twice a day. 2 weeks ago, she underwent follow-up EGD with biopsies. Endoscopically, she was noted to have gastritis, duodenitis and irregular Z line with no polyp and small hiatal hernia. Biopsy of GE junction shows no evidence of Ramirez's esophagus; still has gastritis and duodenitis. She still has globus sensation. No heartburn, acid reflux or dysphasia. She said 10 days ago she had cough and fever and was treated with antibiotic. Covid was negative. Active Problems Acute epigastric pain (789.06,338.19) (R10.13) Anxiety (300.00) (F41.9) Asthma (493.90) (J45.909) Ramirez's esophagus without dysplasia (530.85) (K22.70) CAD (coronary artery disease) (414.00) (I25.10) Essential hypertension (401.9) (I10) Gastropathy (537.9) (K31.9) GERD (gastroesophageal reflux disease) (530.81) (K21.9) Gout (274.9) (M10.9) Hyperlipidemia (272.4) (E78.5) Right flank pain (789.09) (R10.9) Right upper quadrant abdominal pain (789.01) (R10.11) S/P laparoscopic cholecystectomy (V45.89) (Z90.49) Surgical History History of Coronary artery stent placement History of Esophagogastroduodenoscopy History of Hysterectomy History of Right hemicolectomy Family History Family history of malignant neoplasm of colon (V16.0) (Z80.0) Mother: DX age 53, s/p chemo, colon surgery, living. Maternal grandmother: DX age 60's, s/p colon surgery, chemo and radiation, Family history of malignant neoplasm of colon (V16.0) (Z80.0) Mother: DX age 53, s/p chemo, colon surgery, living. Maternal grandmother: DX age 60's, s/p colon surgery, chemo and radiation, Family history of lung cancer (V16.1) (Z80.1) Family history of throat cancer (V16.0) (Z80.0) Family history of breast cancer (V16.3) (Z80.3) Social History Currently working Does not use illicit drugs (V49.89) (Z78.9) Never a smoker No alcohol use Allergies allopurinol Recorded By: Linda Bernard; 01/08/2020 9:43:13 AM [facility] Recorded By: Linda Bernard; 06/12/2019 2:40:16 PM Current Meds Medication NameInstruction Bystolic 10 MG Oral Tablet2 TABLETS IN THE MORNING AND 1 AT BEDTIME. Colchicine 0.6 MG Oral TabletTAKE 1 TABLET DAILY DIRECTED. Losartan Potassium 25 MG Oral TabletTAKE 1 TABLET DAILY DIRECTED. Pantoprazole Sodium 40 MG Oral Tablet Delayed ReleaseTAKE 1 TABLET TWICE A DAY (BEFORE MEALS) ProAir HFA 108 (90 Base) MCG/ACT Inhalation Aerosol Solution Rosuvastatin Calcium 40 MG Oral TabletTAKE 1 TABLET DAILY. Sertraline HCl - 100 MG Oral TabletTAKE 1 TABLET DAILY DIRECTED. Vitals Vital Signs Recorded: [id number] 10:57AM Heart Rate59 Zuhaypwr910 Wiajmivdr16 Height5 ft 3 in Epsvne772 lb BMI Pfqzpocrjo20.16 BSA Calculated2.08 Physical Exam Constitutional: no acute distress, well appearing and well nourished Eyes: conjunctiva and lids with no erythema, swelling or discharge; EOMI Ears, Nose, Mouth and Throat: external inspection of ears and nose are normal Pulmonary: normal respiratory effort; clear to auscultation bilaterally, no wheezes or bronchi Cardiovascular: regular rate and rhythm, no murmurs or extra-heart sounds; pedal pulses are normal; no extremities edema or varicosities, no peripheral edema Abdomen: soft, non-tender, non-distended; no organomegaly; no peritoneal sign, no hernia Lymphatic: no lymphadenopathy, Musculoskeletal: digits and nails normal without clubbing or cyanosis; Joints, bones and muscles are normal with normal range of motion; muscle strength/tone is normal Skin: normal without rashes or lesion Neurologic: cranial nerve II-XII intact grossly; normal gait Psychiatric: oriented to person, place and time Signatures Electronically signed by : Tino Shaw MD; Mar 11 2020 12:17PM EST (Author) Normal Zollo Otheron 2020 NOT DETECTED See Below -[facility]- [facility] [address] DO Work Phone: Comment on above: SOURCE: Nasal, Nasop haryngealReference Range: Not Detected.This assay is designed to detect SARS-CoV-2 based on replication of specific regions of the RNA from the SARS-CoV-2 virus. A Not Detected result does not preclude 2019-nCoV infection since the adequacy of sample collection and/or low viral burden may result in presence of viral nucleic acids below the clinical sensitivity of this test method. Fact sheet for providers: https://www.fda.gov/media/689542/downloadFact sheet for patients: https://www.fda.gov/media/010070/downloadThis test has been validated by the under baster but [facility] independent review of this validation is pending. This test has been verified by [facility] ([facility]). This test is only authorized for the duration of time that circumstances exist to justify the authorization of the emergency use of in vitro diagnostic tests for the detection of SARS-CoV-2 virus and/or diagnosis of COVID-19 infection under section 564(b)(1) of the Act, 21 U.S.C. 360bbb-3(b)(1), unless the authorization is terminated or revoked sooner. [facility] is certified under CLIA-88 as qualified to perform high complexity testing. Testing is performed in the [facility] laboratories located at [address] [place] [address]. KNEE 3 VIEWS LTon 11-14-2018 KNEE 3 VIEWS LT DATE OF EXAM: Nov 14 2018 8:33PM CLINICAL HISTORY/ Patient Name: JOY HAWTHORNE STUDY: KNEE 3 VIEWS LT; 11/14/2018 8:33 pm INDICATION: Non Trauma. COMPARISON: None. ACCESSION NUMBER(S): [id number] ORDERING CLINICIAN: ADOLFO PUGA FINDINGS: There is tricompartmental osteophytosis without joint space narrowing. There is a moderate-sized joint effusion. There is no fracture or dislocation. CONCLUSION: IMPRESSION: Mild tricompartmental osteoarthritis Moderate-sized effusion Normal [facility] VENOUS DUPLEX LOWER EX LTon 11-14-2018 VENOUS DUPLEX LOWER EX LT DATE OF EXAM: Nov 14 2018 9:32PM CLINICAL HISTORY/ Patient Name: JOY HAWTHORNE STUDY: VENOUS DUPLEX LOWER EX LT; 11/14/2018 9:32 pm INDICATION: for DVT. COMPARISON: None. ACCESSION NUMBER(S): [id number] ORDERING CLINICIAN: ADOLFO PUGA TECHNIQUE: Multiple grayscale ultrasound images of the lower extremities were performed with color Doppler, Doppler waveform, and spectral waveform analysis FINDINGS: The left common femoral, superficial femoral, deep femoral, popliteal vein have normal compressibility, color Doppler flow, waveform, and augmentation. The right posterior tibial and peroneal vein have normal color Doppler flow. The right common femoral vein has normal color Doppler flow and waveform. CONCLUSION: IMPRESSION: No DVT Normal [facility] Vital Signs Date Time Vital Sign Value Performing Clinician Omkar henriquez 10-18-2023 14:42-0500 Body weight 89.6 kg Massimo Mccullough MD Work Phone: [facility] 10-18-2023 14:42-0500 Diastolic blood pressure 70 mm[Hg] Massmio Mccullough MD Work Phone: [facility] 10-18-2023 14:42-0500 Heart rate 68 /min Massimo Mccullough MD Work Phone: [facility] 10-18-2023 14:42-0500 Systolic blood pressure 120 mm[Hg] Massimo Mccullough MD Work Phone: [facility] 08-10-2023 16:20-0500 Blood Pressure Location Jason Puentes [facility] 08-10-2023 16:20-0500 Diastolic blood pressure 82 mm[Hg] [facility] 08-10-2023 16:20-0500 Heart rate 69 /min [facility] 08-10-2023 16:20-0500 SaO2% (BldA) [Mass fraction] 100 % Jason [facility] 08-10-2023 16:20-0500 Systolic blood pressure 133 mm[Hg] Jason [facility] 07-13-2023 10:15-0500 Body height 158.75 cm Jonathon Bauman Other [facility] Other 07-13-2023 10:15-0500 Body mass index (BMI) [Ratio] 39.81 kg/m2 Jonathon Bauman Other [facility] Other 07-13-2023 10:15-0500 Body weight 100.34 kg Jnoathon Bauman Other [facility] Other 07-13-2023 10:15-0500 Diastolic blood pressure 78 mm[Hg] Jonathon Bauman Other [facility] Other 07-13-2023 10:15-0500 Respiratory rate 18 /min Jonathon Bauman Other [facility] Other 07-13-2023 10:15-0500 SaO2% (BldA) [Mass fraction] 98 % Jonathon Bauman Other [facility] Other 07-13-2023 10:15-0500 Systolic blood pressure 125 mm[Hg] Jonathon Bauman Other [facility] Other 06-27-2023 14:30-0500 Body height 160.02 cm Miguel Wesley Other [facility] Other 06-27-2023 14:30-0500 Body mass index (BMI) [Ratio] 39.14 kg/m2 Miguel Wesley Other [facility] Other 06-27-2023 14:30-0500 Body weight 100.25 kg Miguel Wesley Other [facility] Other 06-27-2023 14:30-0500 Diastolic blood pressure 72 mm[Hg] Miguel Wesley Other [facility] Other 06-27-2023 14:30-0500 SaO2% (BldA) [Mass fraction] 97 % Miguel Wesley Other [facility] Other 06-27-2023 14:30-0500 Systolic blood pressure 115 mm[Hg] Miguel Wesley Other [facility] Other 06-26-2023 14:59-0500 Blood Pressure Location Juanitajamilah DAVIS [facility] 06-26-2023 14:59-0500 Diastolic blood pressure 66 mm[Hg] Juanitajamilah DAVIS [facility] 06-26-2023 14:59-0500 Heart rate 58 /min Juanitajamilah DAVIS [facility] 06-26-2023 14:59-0500 SaO2% (BldA) [Mass fraction] 98 % Juanitajamilah DAVIS [facility] 06-26-2023 14:59-0500 Systolic blood pressure 121 mm[Hg] Juanitajamilah DAVIS [facility] 06-12-2023 14:30-0400 Body height 160.02 cm Kwadwo Webb Other [facility] Other 06-12-2023 14:30-0400 Body mass index (BMI) [Ratio] 38.97 kg/m2 Kwadwo Webb Other [facility] Other 06-12-2023 14:30-0400 Body weight 99.79 kg Kwadwo Webb Other [facility] Other 06-12-2023 14:30-0400 Diastolic blood pressure 68 mm[Hg] Kwadwo Webb Other [facility] Other 06-12-2023 14:30-0400 Systolic blood pressure 120 mm[Hg] Kwadwo Webb Other [facility] Other 05-03-2023 14:28-0400 Diastolic blood pressure 74 mm[Hg] Jason Deloris [facility] 05-03-2023 14:28-0400 Heart rate 62 /min Jason Christofferson [facility] 05-03-2023 14:28-0400 SaO2% (BldA) [Mass fraction] 97 % Jason Violetaerson [facility] 05-03-2023 14:28-0400 Systolic blood pressure 126 mm[Hg] Jason Christofferson [facility] 03-29-2023 09:50-0400 Diastolic blood pressure 82 mm[Hg] Jason Deloris [facility] 03-29-2023 09:50-0400 Heart rate 54 /min Jason Jeffyoffmookie [facility] 03-29-2023 09:50-0400 SaO2% (BldA) [Mass fraction] 97 % Jason Deloris [facility] 03-29-2023 09:50-0400 Systolic blood pressure 132 mm[Hg] Jason Jeffyoffmookie [facility] 02-05-2023 14:49-0400 Body height 160 cm Matilde Godinez MD Work Phone: [facility] 02-05-2023 14:49-0400 Body weight 94.8 kg Matilde Godinez MD Work Phone: [facility] 02-05-2023 14:49-0400 Diastolic blood pressure 82 mm[Hg] Matilde Godinez MD Work Phone: [facility] 02-05-2023 14:49-0400 Heart rate 49 /min Matilde Godinez MD Work Phone: [facility] 02-05-2023 14:49-0400 Systolic blood pressure 120 mm[Hg] Matilde Godinez MD Work Phone: [facility] 01-17-2023 18:34-0400 Diastolic blood pressure 79 mm[Hg] MD Mack Uribe Work Phone: [facility] 01-17-2023 18:34-0400 Heart rate 57 /min MD Mack Uribe Work Phone: [facility] 01-17-2023 18:34-0400 Respiratory rate 18 /min MD Mack Uribe Work Phone: [facility] 01-17-2023 18:34-0400 SaO2% (BldA) [Mass fraction] 97 % MD Mack Uribe Work Phone: [facility] 01-17-2023 18:34-0400 Systolic blood pressure 151 mm[Hg] MD Mack Uribe Work Phone: [facility] 01-17-2023 14:23-0400 Body height 160.02 cm MD Mack Uribe Work Phone: [facility] 01-17-2023 14:23-0400 Body temperature 98.2 [degF] MD Mack Uribe Work Phone: [facility] 01-17-2023 14:23-0400 Body weight 92.6 kg MD Mack Uribe Work Phone: [facility] 01-10-2023 10:42-0400 Body temperature 97.9 [degF] Jairon Cowan APRN.DRYING OVEN TENDER Work Phone: [facility] 01-10-2023 10:42-0400 Body weight 93.35 kg Jairon Cwoan APRN.DRYING OVEN TENDER Work Phone: [facility] 01-10-2023 10:42-0400 Diastolic blood pressure 70 mm[Hg] Jairon Cowan APRN.DRYING OVEN TENDER Work Phone: [facility] 01-10-2023 10:42-0400 Heart rate 63 /min Jairon Cowan APRN.DRYING OVEN TENDER Work Phone: [facility] 01-10-2023 10:42-0400 SaO2% (BldA) [Mass fraction] 97 % Jairon Cowan APRN.DRYING OVEN TENDER Work Phone: [facility] 01-10-2023 10:42-0400 Systolic blood pressure 118 mm[Hg] Jairon Cowan APRN.DRYING OVEN TENDER Work Phone: [facility] 10-06-2022 13:11-0500 Body weight 91.17 kg Alisson Macias APRN.DRYING OVEN TENDER Work Phone: [facility] 10-06-2022 13:11-0500 Diastolic blood pressure 68 mm[Hg] Alisson Macias APRN.DRYING OVEN TENDER Work Phone: [facility] 10-06-2022 13:11-0500 Heart rate 72 /min Alisson Macias APRN.DRYING OVEN TENDER Work Phone: [facility] 10-06-2022 13:11-0500 Systolic blood pressure 110 mm[Hg] Alisson Macias APRN.DRYING OVEN TENDER Work Phone: [facility] 08-29-2022 14:15-0500 Body height 160.02 cm Kwadwo Webb Other [facility] Other 08-29-2022 14:15-0500 Body mass index (BMI) [Ratio] 35.42 kg/m2 Kwadwo Webb Other [facility] Other 08-29-2022 14:15-0500 Body weight 90.72 kg Kwadwo Webb Other [facility] Other 08-29-2022 14:15-0500 Diastolic blood pressure 91 mm[Hg] Kwadwo Webb Other [facility] Other 08-29-2022 14:15-0500 Systolic blood pressure 144 mm[Hg] Kwadwo Webb Other [employer] Other 07-08-2022 11:15-0500 Body height 160.02 cm MD Mack Uribe Work Phone: [facility] 07-08-2022 11:15-0500 Body temperature 98.3 [degF] MD Mack Uribe Work Phone: [facility] 07-08-2022 11:15-0500 Body weight 92.98 kg MD Mack Uribe Work Phone: [facility] 07-08-2022 11:15-0500 Diastolic blood pressure 104 mm[Hg] MD Mack Uribe Work Phone: [facility] 07-08-2022 11:15-0500 Heart rate 74 /min MD Mack Uribe Work Phone: [facility] 07-08-2022 11:15-0500 Respiratory rate 18 /min MD Mack Uribe Work Phone: [facility] 07-08-2022 11:15-0500 SaO2% (BldA) [Mass fraction] 100 % MD Mack Uribe Work Phone: [facility] 07-08-2022 11:15-0500 Systolic blood pressure 152 mm[Hg] MD Mack Uribe Work Phone: [facility] 05-26-2022 13:47-0400 Body weight 91.81 kg Mack Uribe MD Work Phone: [facility] 05-26-2022 13:47-0400 Diastolic blood pressure 76 mm[Hg] Mack Uribe MD Work Phone: [facility] 05-26-2022 13:47-0400 Heart rate 72 /min Mack Uribe MD Work Phone: [facility] 05-26-2022 13:47-0400 Systolic blood pressure 122 mm[Hg] Mack Uribe MD Work Phone: [facility] 05-23-2022 11:23-0400 Diastolic blood pressure 70 mm[Hg] Shanta Monahan CATTLE FEEDER.DRYING OVEN TENDER Work Phone: [facility] 05-23-2022 11:23-0400 Heart rate 65 /min Shanta Monahan CATTLE FEEDER.DRYING OVEN TENDER Work Phone: [facility] 05-23-2022 11:23-0400 Respiratory rate 16 /min Shanta Monahan CATTLE FEEDER.DRYING OVEN TENDER Work Phone: [facility] 05-23-2022 11:23-0400 SaO2% (BldA) [Mass fraction] 100 % Shanta Monahan CATTLE FEEDER.DRYING OVEN TENDER Work Phone: [facility] 05-23-2022 11:23-0400 Systolic blood pressure 134 mm[Hg] Shanta Monahan CATTLE FEEDER.DRYING OVEN TENDER Work Phone: [facility] 05-09-2022 12:55-0400 Body weight 90.72 kg Eric Nina MD Work Phone: [facility] 05-09-2022 12:55-0400 Diastolic blood pressure 75 mm[Hg] Eric Nina MD Work Phone: [facility] 05-09-2022 12:55-0400 Heart rate 61 /min Eric Nina MD Work Phone: [facility] 05-09-2022 12:55-0400 Respiratory rate 16 /min Eric Nina MD Work Phone: [facility] 05-09-2022 12:55-0400 Systolic blood pressure 128 mm[Hg] Eric Nina MD Work Phone: [facility] 02-23-2022 16:13-0400 Body temperature 101.1 [degF] DO Alexsander Lehman Work Phone: [facility] 02-23-2022 16:13-0400 Diastolic blood pressure 77 mm[Hg] DO Alexsander Lehman Work Phone: [facility] 02-23-2022 16:13-0400 Heart rate 110 /min DO Alexsander Lehman Work Phone: [facility] 02-23-2022 16:13-0400 Respiratory rate 18 /min DO Alexsander Lehman Work Phone: [facility] 02-23-2022 16:13-0400 SaO2% (BldA) [Mass fraction] 100 % DO Alexsander Lehman Work Phone: [facility] 02-23-2022 16:13-0400 Systolic blood pressure 146 mm[Hg] DO Alexsander Lehman Work Phone: [facility] 02-23-2022 09:37-0400 Body height 160.02 cm DO Alexsander Lehman Work Phone: [facility] 02-23-2022 09:37-0400 Body mass index (BMI) [Ratio] 33.7 kg/m2 DO Alexsander Lehman Work Phone: [facility] 02-23-2022 09:37-0400 Body weight 86.58 kg DO Alexsander Lehman Work Phone: [facility] 01-26-2022 16:19-0400 Diastolic blood pressure 56 mm[Hg] DO Alexsander Lehman Work Phone: [facility] 01-26-2022 16:19-0400 Heart rate 58 /min DO Alexsander Lehman Work Phone: [facility] 01-26-2022 16:19-0400 Respiratory rate 18 /min DO Alexsander Lehman Work Phone: [facility] 01-26-2022 16:19-0400 SaO2% (BldA) [Mass fraction] 99 % DO Alexsander Lehman Work Phone: [facility] 01-26-2022 16:19-0400 Systolic blood pressure 100 mm[Hg] DO Alexsander Lehman Work Phone: [facility] 01-26-2022 14:30-0400 Body temperature 98.2 [degF] DO Alexsander Lehman Work Phone: [facility] 01-26-2022 10:38-0400 Body height 160.02 cm DO Alexsander Lehman Work Phone: [facility] 01-26-2022 10:38-0400 Body mass index (BMI) [Ratio] 34 kg/m2 DO Alexsander Lehman Work Phone: [facility] 01-26-2022 10:38-0400 Body weight 87 kg DO Alexsander Lehman Work Phone: [facility] 01-16-2022 14:00-0400 Body temperature 99.8 [degF] [facility] 01-16-2022 14:00-0400 Diastolic blood pressure 70 mm[Hg] [facility] 01-16-2022 14:00-0400 Heart rate 60 /min [facility] 01-16-2022 14:00-0400 SaO2% (BldA) [Mass fraction] 99 % [facility] 01-16-2022 14:00-0400 Systolic blood pressure 125 mm[Hg] [facility] 01-16-2022 11:02-0400 Body temperature 97.9 [degF] DO Alexsander Lehman Work Phone: [facility] 01-16-2022 11:02-0400 Diastolic blood pressure 63 mm[Hg] DO Alexsander Lehman Work Phone: [facility] 01-16-2022 11:02-0400 Heart rate 61 /min DO Alexsander Lehman Work Phone: [facility] 01-16-2022 11:02-0400 Respiratory rate 20 /min [facility] 01-16-2022 11:02-0400 SaO2% (BldA) [Mass fraction] 98 % DO Alexsander Lehman Work Phone: [facility] 01-16-2022 11:02-0400 Systolic blood pressure 101 mm[Hg] DO Alexsander Lehman Work Phone: [facility] 01-16-2022 08:00-0400 Inhaled oxygen flow rate 2 L/min DO Alexsander Lehman Work Phone: [facility] 01-16-2022 02:15-0400 Body height 160.02 cm DO Alexsander Lehman Work Phone: [facility] 01-16-2022 02:15-0400 Body mass index (BMI) [Ratio] 34.7 kg/m2 DO Alexsander Lehman Work Phone: [facility] 01-16-2022 02:15-0400 Body weight 88.8 kg DO Alexsander Lehman Work Phone: [facility] 01-16-2022 00:00-0400 60 1 Michael West DO Work Phone: [place] [address] DO Work Phone: Comment on above: [id number] 01-15-2022 23:00-0400 Inhaled oxygen flow rate 2 L/min [facility] 01-15-2022 19:00-0400 Body height 160.02 cm [facility] 01-15-2022 19:00-0400 Body mass index (BMI) [Ratio] 34.5 kg/m2 [facility] 01-15-2022 19:00-0400 Body weight 88.45 kg [facility] 12-14-2021 14:41-0400 Body weight 88.45 kg Eunice Pearl MD Work Phone: [facility] 12-14-2021 14:41-0400 Diastolic blood pressure 68 mm[Hg] Eunice Pearl MD Work Phone: [facility] 12-14-2021 14:41-0400 Heart rate 53 /min Eunice Pearl MD Work Phone: [facility] 12-14-2021 14:41-0400 SaO2% (BldA) [Mass fraction] 99 % Eunice Pearl MD Work Phone: [facility] 12-14-2021 14:41-0400 Systolic blood pressure 132 mm[Hg] Eunice Pearl MD Work Phone: [facility] 03-07-2021 18:11-0400 Diastolic blood pressure 72 mm[Hg] Mack Tanithan Other Phone: [facility] 03-07-2021 18:11-0400 Heart rate 55 /min Mack Tanithan Other Phone: [facility] 03-07-2021 18:11-0400 Respiratory rate 18 /min Mack Unnithan Other Phone: [facility] 03-07-2021 18:11-0400 SaO2% (BldA) [Mass fraction] 100 % Mack Tanithan Other Phone: [facility] 03-07-2021 18:11-0400 Systolic blood pressure 135 mm[Hg] Mack Tanithan Other Phone: [facility] 03-07-2021 12:28-0400 Body height 160 cm Mack Unnithan Other Phone: [facility] 03-07-2021 12:28-0400 Body temperature 97.7 [degF] Mack Unnithan Other Phone: [facility] 03-07-2021 12:28-0400 Body weight 94 kg Mack Unnithan Other Phone: [facility] 03-07-2021 09:21-0400 Body height 160.02 cm Mack S Unnithan [facility] Phone[facility] Work Phone: 03-07-2021 09:21-0400 Body mass index (BMI) [Ratio] 36.67 kg/m2 Mack S Unnithan Work Phone: [facility] DO Work Phone: 03-07-2021 09:21-0400 Body surface area Derived from formula 1.96 m2 Mack S Unnithan Work Phone: [facility] DO Work Phone: 03-07-2021 09:21-0400 Body weight 93.9 kg Mack S Unnithan Work Phone: -[facility] DO Work Phone: 03-07-2021 09:21-0400 Diastolic blood pressure 71 mm[Hg] Mack S Unnithan Work Phone: -[facility] DO Work Phone: 03-07-2021 09:21-0400 Heart rate 60 /min Mack S Unnithan Work Phone: -[facility] DO Work Phone: 03-07-2021 09:21-0400 Systolic blood pressure 119 mm[Hg] Mack S Unnithan Work Phone: -[facility] DO Work Phone: 03-03-2021 12:05-0400 Body height 160 cm Mack Unnithan Other Phone: [facility] 03-03-2021 09:22-0400 Body temperature 97.52 [degF] Mack Unnithan Other Phone: [facility] 03-03-2021 09:22-0400 Diastolic blood pressure 67 mm[Hg] Mack Unnithan Other Phone: [facility] 03-03-2021 09:22-0400 Heart rate 45 /min Mack Unnithan Other Phone: [facility] 03-03-2021 09:22-0400 Respiratory rate 18 /min Mack Unnithan Other Phone: [facility] 03-03-2021 09:22-0400 SaO2% (BldA) [Mass fraction] 100 % Mack Unnithan Other Phone: [facility] 03-03-2021 09:22-0400 Systolic blood pressure 157 mm[Hg] Mack Unnithan Other Phone: [facility] 02-21-2021 14:13-0400 Body height 160.02 cm Mack S Unnithan Work Phone: [facility] DO Work Phone: 02-21-2021 14:13-0400 Body mass index (BMI) [Ratio] 37.38 kg/m2 Mack S Unnithan Work Phone: [facility] DO Work Phone: 02-21-2021 14:13-0400 Body surface area Derived from formula 1.98 m2 Mack S Unnithan Work Phone: [facility] DO Work Phone: 02-21-2021 14:13-0400 Body weight 95.71 kg Mack S Unnithan Work Phone: [facility] DO Work Phone: 02-21-2021 14:13-0400 Diastolic blood pressure 88 mm[Hg] Mack S Unnithan Work Phone: [facility] DO Work Phone: 02-21-2021 14:13-0400 Heart rate 59 /min Mack S Unnithan Work Phone: [facility] DO Work Phone: 02-21-2021 14:13-0400 Systolic blood pressure 144 mm[Hg] Mack S Unnithan Work Phone: [facility] DO Work Phone: 02-10-2021 09:13-0400 Body height 160.02 cm Mack S Unnithan Work Phone: [facility] DO Work Phone: 02-10-2021 09:13-0400 Body mass index (BMI) [Ratio] 37.73 kg/m2 Mack S Unnithan Work Phone: [facility] DO Work Phone: 02-10-2021 09:13-0400 Body surface area Derived from formula 1.99 m2 Mack S Unnithan Work Phone: [facility] DO Work Phone: 02-10-2021 09:13-0400 Body weight 96.62 kg Mack S Unnithan Work Phone: [facility] DO Work Phone: 02-10-2021 09:13-0400 Diastolic blood pressure 71 mm[Hg] Mack S Unnithan Work Phone: [facility] DO Work Phone: 02-10-2021 09:13-0400 Heart rate 54 /min Mack S Unnithan Work Phone: [facility] DO Work Phone: 02-10-2021 09:13-0400 Systolic blood pressure 128 mm[Hg] Mack S Unnithan Work Phone: [facility] DO Work Phone: 01-31-2021 09:08-0400 Body height 160.02 cm Mack S Unnithan Work Phone: [facility] DO Work Phone: 01-31-2021 09:08-0400 Body mass index (BMI) [Ratio] 37.75 kg/m2 Mack S Unnithan Work Phone: [facility] DO Work Phone: 01-31-2021 09:08-0400 Body surface area Derived from formula 1.99 m2 Mack S Unnithan Work Phone: [facility] DO Work Phone: 01-31-2021 09:08-0400 Body weight 96.68 kg Mack S Unnithan Work Phone: [facility] DO Work Phone: 01-31-2021 09:08-0400 Diastolic blood pressure 95 mm[Hg] Mack S Unnithan Work Phone: -[facility] DO Work Phone: 01-31-2021 09:08-0400 Heart rate 60 /min Mack S Unnithan Work Phone: -[facility] DO Work Phone: 01-31-2021 09:08-0400 Systolic blood pressure 153 mm[Hg] Mack S Unnithan Work Phone: -[facility] DO Work Phone: 01-26-2021 01:44-0400 Diastolic blood pressure 80 mm[Hg] Mack Unnithan Other Phone: [facility] 01-26-2021 01:44-0400 Heart rate 82 /min Mack Unnithan Other Phone: [facility] 01-26-2021 01:44-0400 Respiratory rate 18 /min Mack Unnithan Other Phone: [facility] 01-26-2021 01:44-0400 SaO2% (BldA) [Mass fraction] 98 % Mack Unnithan Other Phone: [facility] 01-26-2021 01:44-0400 Systolic blood pressure 119 mm[Hg] Mack Unnithan Other Phone: [facility] 01-25-2021 21:48-0400 Body height 160 cm Mack Unnithan Other Phone: [facility] 01-25-2021 21:48-0400 Body temperature 98.42 [degF] Mack Unnithan Other Phone: [facility] 01-25-2021 21:48-0400 Body weight 100 kg Mack Unnithan Other Phone: [facility] 01-13-2021 09:15-0400 Heart rate 64 /min Mack S Unnithan Work Phone: [facility] DO Work Phone: 01-13-2021 09:15-0400 Respiratory rate 15 /min Mack S Unnithan Work Phone: [facility] DO Work Phone: 01-13-2021 09:10-0400 Body height 160.02 cm Mack S Unnithan Work Phone: [facility] DO Work Phone: 01-13-2021 09:10-0400 Body mass index (BMI) [Ratio] 42.16 kg/m2 Mack S Unnithan Work Phone: [facility] DO Work Phone: 01-13-2021 09:10-0400 Body surface area Derived from formula 2.08 m2 Amck S Unnithan Work Phone: [facility] DO Work Phone: 01-13-2021 09:10-0400 Body weight 107.96 kg Mack S Unnithan Work Phone: -[facility] DO Work Phone: 01-13-2021 09:10-0400 Diastolic blood pressure 80 mm[Hg] Mack S Unnithan Work Phone: -[facility] DO Work Phone: 01-13-2021 09:10-0400 Heart rate 64 /min Mack S Unnithan Work Phone: [facility] DO Work Phone: 01-13-2021 09:10-0400 Respiratory rate 15 /min Mack S Unnithan Work Phone: [facility] DO Work Phone: 01-13-2021 09:10-0400 Systolic blood pressure 136 mm[Hg] Mack S Unnithan Work Phone: -[facility] DO Work Phone: 09-06-2020 11:17-0500 BMI (Body Mass Index) 41.63 kg/m2 [facility] Work Phone: 09-06-2020 11:17-0500 Body weight 106.6 kg [facility] Work Phone: 09-06-2020 11:17-0500 BP Diastolic 96 mm[Hg] [id number] Work Phone: 09-06-2020 11:17-0500 BP Systolic 153 mm[Hg] [facility] Work Phone: 09-06-2020 11:17-0500 BSA (Body Surface Area) 2.07 m2 [facility] Work Phone: 09-06-2020 11:17-0500 Height 160.02 cm Tino Shaw [facility] MAC[facility] 309 Work Phone: 09-06-2020 11:17-0500 Pulse (Heart Rate) 59 /min Tino Shaw [facility] MAC2 309 Work Phone: Encounters Encounter Date Encounter Type Care Provider Facility Start: 10-18-2023 End: 10-18-2023 ambulatory MACK URIBE Facility:[facility] Start: 10-18-2023 End: 10-18-2023 Patient encounter procedure Massimo Mccullough MD Work Phone: Cardiology Comment on above: Palpitations (Primar y Dx) Start: 09-18-2023 End: 09-18-2023 ambulatory Jonathon Bauman Other [employer] Other Start: 09-18-2023 Telephone encounter Jonathon shaw [facility] Start: 09-17-2023 End: 09-17-2023 ambulatory Jonathon Bauman Other [employer] Other Start: 09-17-2023 Telephone encounter Jonathon Ware [facility] Start: 09-10-2023 End: 09-10-2023 ambulatory Jonathon Bauman Other [facility] Other Start: 09-10-2023 Telephone encounter Jonathon shaw [facility] Start: 08-26-2023 End: 08-26-2023 ambulatory TAMMIE MCARTHUR Not Available Start: 08-10-2023 End: 08-11-2023 ambulatory Jason Puentes [place] Start: 08-10-2023 End: 08-10-2023 Patient encounter procedure Jason Puentes [facility] Start: 08-01-2023 End: 08-01-2023 ambulatory Rosemarie Aldridge Other [employer] Other Start: 08-01-2023 Telephone encounter Rosemarie Aldridge [facility] Start: 07-26-2023 End: 07-26-2023 ambulatory Orlin Bal Shammo Facility:[facility] Start: 07-20-2023 End: 07-20-2023 ambulatory Jonathon Bauman Other [facility] Other Start: 07-20-2023 Telephone encounter Jonathon Ware [facility] Start: 07-13-2023 Nutrition therapy Jonathon Bauman [facility] Start: 07-13-2023 End: 07-13-2023 ambulatory Kwadwo Webb [facility] [employer] Other Start: 07-11-2023 End: 07-11-2023 ambulatory Kwadwo Webb Other [facility] [employer] Other Start: 07-11-2023 Encounter by carlitos Webb [facility] G[facility] Start: 06-28-2023 Encounter by carlitos Bauman [facility] Start: 06-28-2023 End: 06-28-2023 ambulatory MD Mack Uribe Work Phone: [facility] Work Phone: Start: 06-28-2023 End: 06-28-2023 Patient encounter procedure MD Mack Uribe Work Phone: [facility]-Digestive Health Work Phone: Start: 06-27-2023 End: 06-27-2023 Patient encounter procedure MD Mack Uribe Work Phone: [facility]-Sleep Lab Work Phone: Start: 06-27-2023 End: 06-27-2023 ambulatory MD Mack Uribe Work Phone: [facility] Work Phone: Start: 06-27-2023 Office outpatient visit 40 minutes Miguel Wesley [facility] Start: 06-26-2023 End: 06-27-2023 ambulatory XXXX NONE [place] Start: 06-26-2023 End: 06-26-2023 Patient encounter procedure Juanita DAVIS [facility] Start: 06-18-2023 End: 06-18-2023 ambulatory Rosemarie Aldridge Other [employer] Other Start: 06-18-2023 Telephone encounter Rosemarie Aldridge [facility] Start: 06-12-2023 End: 06-12-2023 ambulatory Kwadwo Webb Other [employer] Other Start: 06-12-2023 Office outpatient visit 15 minutes Kwadwo Webb [facility] Gastroenter[facility] Start: 05-30-2023 End: 05-30-2023 ambulatory Orlin T Shammo Facility:[facility] Start: 05-30-2023 End: 05-30-2023 ambulatory MD Mack Uribe Work Phone: [facility] Work Phone: Start: 05-30-2023 End: 05-30-2023 Patient encounter procedure MD Mack Uribe Work Phone: [facility]-Sleep Lab Work Phone: Start: 05-16-2023 End: 05-16-2023 ambulatory Orlin T Shammo Facility:[facility] Start: 05-16-2023 End: 05-16-2023 ambulatory MD Mack Uribe Work Phone: [facility] Work Phone: Start: 05-16-2023 End: 05-16-2023 Patient encounter procedure MD Mack Uribe Work Phone: [facility]-Lab [place] Work Phone: Start: 05-11-2023 End: 05-11-2023 ambulatory Jason Puentes [facility] Start: 05-11-2023 End: 05-11-2023 Admission to same day surgery center Jason Puentes [facility] Start: 05-05-2023 End: 05-06-2023 ambulatory Jason Puentes [facility] Start: 05-05-2023 End: 05-05-2023 Patient encounter procedure Jason Puentes [facility] Start: 05-03-2023 End: 05-04-2023 ambulatory XXXX NONE Facility[place] Start: 05-03-2023 End: 05-03-2023 Patient encounter procedure Jason Puentes [facility] Start: 04-20-2023 End: 04-20-2023 ambulatory MONAE FINNEY Facility:[facility] Start: 04-19-2023 ambulatory XXXX NONE Facility:[facility] Start: 04-13-2023 End: 04-13-2023 Emergency department patient visit Mack Uribe Facility:[facility] Start: 04-13-2023 End: 04-13-2023 Emergency department patient visit MD Mack Uribe Work Phone: [facility] Work Phone: Start: 04-11-2023 End: 04-12-2023 ambulatory MD Matt ROMANO Facility[place] Start: 04-11-2023 End: 04-11-2023 Patient encounter procedure Jason Puentes [facility] Start: 04-05-2023 End: 04-21-2023 Pre-admission assessment Jason Puentes [facility] Start: 03-29-2023 End: 03-30-2023 ambulatory XXXX NONE Facility[place] Start: 03-29-2023 End: 03-29-2023 Patient encounter procedure Jason Puentes [facility] Start: 03-17-2023 Refill Matilde Mcmillan Work Phone: Cardiology Comment on above: Refill Request Start: 02-05-2023 End: 02-05-2023 ambulatory MATILDE GODINEZ Facility:[facility] Start: 02-05-2023 End: 02-05-2023 Patient encounter procedure Matilde Godinez MD Work Phone: Cardiology Comment on above: Presence of drug coa kyra stent in right coronary artery (Primary Dx); Essential hypertension; Atherosclerosis of sitka coronary artery of sitka heart without angina pectoris; Controlled type 2 diabetes mellitus without complication, without long-term current use of insulin (HCC); Obesity, Class II, BMI 35-39.9 E66.9 Start: 01-17-2023 End: 01-17-2023 Emergency department patient visit Kang Gonzalez Facility:[facility] Start: 01-17-2023 End: 01-17-2023 Emergency department patient visit MD Mack Uribe Work Phone: [facility] Work Phone: Start: 01-14-2023 Refill Matilde Mcmillan Work Phone: Cardiology Comment on above: Refill Request Start: 01-11-2023 End: 01-11-2023 ambulatory JAIRON COWAN Facility:[facility] Start: 01-11-2023 Telephone encounter Jairon pham APRN.DRYING OVEN TENDER Work Phone: Internal Medicine [place] Comment on above: Results Start: 01-10-2023 End: 01-11-2023 ambulatory Jairon Cowan APRN.DRYING OVEN TENDER Work Phone: Internal Medicine [place] Comment on above: results Start: 01-10-2023 E-mail encounter fro m caregiver Jairon Chapo BETHEA.DRYING OVEN TENDER Work Phone: [facility] Start: 01-10-2023 End: 01-10-2023 Subsequent hospital visit by physician [facility] Comment on above: Right flank pain [R1 0.9] Start: 01-10-2023 End: 01-10-2023 Patient encounter procedure Jaironjonas Cowan APRN.DRYING OVEN TENDER Work Phone: Internal Medicine [place] Comment on above: Right flank pain (Pr imary Dx) Start: 12-20-2022 ambulatory Mack mendoza MD Work Phone: Internal Medicine [facility] Start: 12-04-2022 End: 12-04-2022 ambulatory ALISSON MACIAS Facility:[facility] Start: 11-09-2022 End: 11-09-2022 ambulatory ALISSON MACIAS Facility:[facility] Start: 11-09-2022 End: 11-09-2022 Patient encounter procedure Sravanjed Lunael DO Work Phone: Orthopaedics Comment on above: Primary osteoarthrit is of both hands (Primary Dx) Start: 10-19-2022 Telephone encounter Alisson metz APRN.DRYING OVEN TENDER Work Phone: Rheumatology Comment on above: Results Start: 10-08-2022 Telephone encounter Alisson metz APRN.DRYING OVEN TENDER Work Phone: Rheumatology Comment on above: Results Start: 10-06-2022 ambulatory Xavier Arevalo RT(R) Ra diology Comment on above: Radiology XR Start: 10-06-2022 End: 10-06-2022 Patient encounter procedure Xavier Arevalo RT(R) [facility] [place] Comment on above: Gout with manifestat ions (Primary Dx); Primary osteoarthritis of both knees; Multiple joint pain; Acute left ankle pain; Pain in both hands Start: 10-04-2022 ambulatory Eric reyna MD Work Phone: Rheumatology Comment on above: Joint pain Start: 09-15-2022 End: 09-15-2022 ambulatory Mack Uribe MD Work Phone: Internal Medicine [place] Comment on above: Left flank pain (Yoly dillon Dx) Start: 09-15-2022 End: 09-15-2022 Telemedicine consultation with patient Mack Uribe MD Work Phone: [facility] Start: 08-29-2022 End: 08-29-2022 ambulatory Kwadwo Webb Other [employer] Other Start: 08-29-2022 Office outpatient ne w 45 minutes Kwadwo Webb [facility] Start: 07-11-2022 End: 07-11-2022 ambulatory Stan Young Other [employer] Other Start: 07-11-2022 Office outpatient ne w 30 minutes Stan Young [facility] Start: 07-08-2022 End: 07-08-2022 Emergency department patient visit MD Mack Uribe Work Phone: [facility] Start: 05-26-2022 End: 05-26-2022 Patient encounter procedure Mack Uribe MD Work Phone: Internal Medicine [place] Comment on above: Controlled type 2 di abetes mellitus without complication, without long-term current use of insulin (HCC) (Primary Dx); Essential hypertension; Gastroesophageal reflux disease without esophagitis; Encounter for immunization Start: 05-24-2022 Telephone encounter Maria Elena mcnamara APRN.DRYING OVEN TENDER Work Phone: [place] [employer] [facility] Comment on above: Results Start: 05-23-2022 ambulatory Mack mendoza MD Work Phone: Internal Medicine [place] Comment on above: Stomach issue Start: 05-23-2022 End: 05-23-2022 Office outpatient visit 25 minutes Shanta Monahan CATTLE FEEDER.DRYING OVEN TENDER Work Phone: [facility] Comment on above: Left upper quadrant abdominal pain (Primary Dx) Start: 05-23-2022 End: 05-23-2022 Patient encounter procedure Vinny Calvillo OD Work Phone: Ophthalmology Comment on above: Combined forms of ag e-related cataract of both eyes (Primary Dx); Screening for diabetic retinopathy Start: 05-09-2022 End: 05-09-2022 Patient encounter procedure Eric Nina MD Work Phone: Rheumatology Comment on above: Gout with manifestat ions (Primary Dx); Hyperuricemia, hx; Strain of left rotator cuff capsule, initial encounter; Medial epicondylitis of left elbow Start: 04-21-2022 ambulatory Mack mendoza MD Work Phone: Internal Medicine [place] Comment on above: Prescription Start: 04-15-2022 ambulatory Mack mendoza MD Work Phone: Internal Medicine [place] Comment on above: Menopause Start: 02-23-2022 End: 02-23-2022 Emergency department patient visit DO Alexsander Lehman Work Phone: [facility] Start: 01-26-2022 [facility], Provider: Michael West, Status: Pen, Time: 12:00 PM Michael West DO Work Phone: [facility] 250 DO Work Phone: Start: 01-26-2022 End: 01-26-2022 Admission to same day surgery center DO Alexsander Lehman Work Phone: [facility]-Art Objects Repairer Start: 01-25-2022 ambulatory Mack mendoza MD Work Phone: Internal Medicine [place] Comment on above: Medical papers Start: 01-24-2022 Chart Update Michael mendoza DO Work Phone: [facility] 250 DO Work Phone: Start: 01-24-2022 End: 01-24-2022 Patient encounter procedure DO Alexsander Lehman Work Phone: [facility]-Pre-Surgical Testing Start: 01-20-2022 End: 01-20-2022 Telemedicine consultation with patient Mack Uribe MD Work Phone: [facility] [place] Start: 01-20-2022 End: 01-20-2022 ambulatory Mack Uribe MD Work Phone: Internal Medicine [place] Comment on above: Forms COVID-19 (Primary Dx ); Coronary artery disease involving sitka coronary artery of sitka heart without angina pectoris Start: 01-16-2022 Message Michael Johnson n DO Work Phone: -[facility] 250 DO Work Phone: Start: 01-15-2022 End: 01-16-2022 Evaluation and management of inpatient [facility] [place] [facility] Start: 01-10-2022 ambulatory Matilde Mcmillan Work Phone: [facility] Start: 01-10-2022 Telephone encounter Matilde lepe MD Work Phone: Cardiology Comment on above: Patient Update Refill Request Medication refill Start: 12-14-2021 End: 12-14-2021 Patient encounter procedure Eunice Pearl MD Work Phone: Internal Medicine [place] Comment on above: Paresthesias (Primar y Dx); Essential hypertension; Controlled type 2 diabetes mellitus without complication, without long-term current use of insulin ([facility]) Start: 12-10-2021 ambulatory Mack mendoza MD Work Phone: Internal Medicine [place] Comment on above: Facial numbness Start: 11-21-2021 ambulatory Mack mendoza MD Work Phone: Internal Medicine [place] Comment on above: Blood work Start: 11-19-2021 Documentation procedure Mammography Coordinator [facility] Start: 11-19-2021 Letter encounter Mammography Coordinator [facility] Department Start: 11-18-2021 End: 11-18-2021 Subsequent hospital visit by physician Screen Mammo [facility] Comment on above: Encounter for screen ing mammogram for breast cancer [Z12.31] Start: 03-07-2021 End: 03-07-2021 Emergency department patient visit Jaen Baum [place] [facility] 10 Start: 03-07-2021 Patient encounter procedure Mack S Unnithan Work Phone: [facility] [facility] 201 DO Work Phone: Start: 03-07-2021 Postop follow up vis it related to original px Mack S Unnithan Work Phone: [facility] [facility] 201 DO Work Phone: Start: 03-04-2021 Chart Update Mack S Unnitha n Work Phone: [facility] [facility] 201 DO Work Phone: Start: 03-01-2021 End: 03-03-2021 Evaluation and management of inpatient Tino Valeria [address] 912 02 Start: 02-25-2021 AUDIT Mack S Tanitha n Work Phone: [facility] [facility] 201 DO Work Phone: Start: 02-24-2021 Chart Update Mack S Unnitha n Work Phone: [facility] [facility] 201 DO Work Phone: Start: 02-21-2021 Postop follow up vis it related to original px Mack S Unnithan Work Phone: [facility] [facility] 201 DO Work Phone: Start: 02-01-2021 Chart Update Mack S Unnitha n Work Phone: [facility] [facility] 201 DO Work Phone: Start: 01-25-2021 End: 01-26-2021 Emergency department patient visit Mauriziocecyeunice Cristina [place] ED 04 Start: 01-13-2021 Patient encounter procedure Mack S Tanithan Work Phone: [facility] [facility] 201 DO Work Phone: Start: 10-21-2020 Patient encounter procedure Tino Shaw [facility] 450 DO Work Phone: Start: 09-06-2020 [facility] Work Phone: Start: 08-30-2020 End: 08-30-2020 Subsequent hospital visit by physician Screen Mammo [facility] Mammography Comment on above: Encounter for screen ing mammogram for malignant neoplasm of breast [Z12.31] Start: 05-26-2020 End: 05-26-2020 Subsequent hospital visit by physician Xr [facility] Rad[facility] Comment on above: Right flank tenderne ss [R10.819] Start: 05-21-2020 End: 05-21-2020 Subsequent hospital visit by physician Scan Nm [facility] Rej Work Phone: Nuclear Medicine Comment on above: Shortness of breath [R06.02] Start: 03-11-2020 [facility] encounter [facility] Work Phone: Start: 03-01-2020 End: 03-02-2020 [facility] Start: 01-08-2020 Patient encounter procedure Tino Shaw [facility] [facility] 201 DO Work Phone: Start: 07-24-2019 Patient encounter procedure Tino Shaw [facility] [facility] 201 DO Work Phone: Start: 07-07-2019 Patient encounter procedure Tino Shaw [facility] [facility] 201 DO Work Phone: Start: 06-12-2019 Patient encounter procedure Tino Shaw [facility] [facility] 201 DO Work Phone: Start: 01-01-2019 Patient encounter procedure Tino Shaw [facility] [facility] 201 DO Work Phone: Start: 11-14-2018 End: 11-15-2018 Emergency department patient visit MACK URIBE Facility:[facility] | [employer] Procedures Date Procedure Procedure Detail Performing Clinician Start: 10-18-2023 Ecg routine ecg w/least 12 lds i&r only Massimo Mccullough MD Work Phone: Start: 06-28-2023 Ultrasound elastography of liver MD Mack Uribe Work Phone: Start: 05-11-2023 Catheterization of left heart Jason rincon Comment on above: negative Start: 01-17-2023 Computed tomography of abdomen and pelvis with contrast MD Mack Uribe Work Phone: Start: 01-10-2023 Us abdominal real time w/image limited Jairon Cowan APRN.DRYING OVEN TENDER Work Phone: Start: 01-10-2023 Urnls dip stick/tablet rgnt auto w/o microscopy Jairon Cowan APRN.DRYING OVEN TENDER Work Phone: Start: 07-08-2022 X-ray of left ankle MD Mack Uribe Work Phone: Start: 05-26-2022 [employer] COVID-19 BIVALENT BOOSTER VACCINE, AGE 12+ YR Mack Uribe MD Work Phone: Start: 05-23-2022 Urnls dip stick/tablet rgnt auto w/o microscopy [facility] Provider Start: 02-23-2022 Plain chest X-ray DO Alexsander Lehman Work Phone: Start: 01-26-2022 CL LHC & COR Angio DO Alexsander Lehman Work Phone: Start: 01-16-2022 Duplex scan of lower limb veins DO Alexsander Lehman Work Phone: Start: 01-15-2022 CT of head without contrast DO Alexsander Gucci janayjocelyne Work Phone: Start: 01-15-2022 Plain chest X-ray DO Alexsander Lehman Work Phone: Start: 01-15-2022 SARS Antigen (LFIA) Start: 11-18-2021 End: 11-18-2021 Mammography Bulk Order Provider Start: 03-07-2021 Adult depression screening assessment Mack Uribe MD Work Phone: Start: 03-02-2021 End: 03-02-2021 Colonoscopy Mack Uribe Work Phone: Start: 03-02-2021 Echocardiography Mack Uribe Work Phone: Start: 01-25-2021 End: 01-25-2021 EKG impression Jagprit Evans Start: 10-21-2020 Esophageal VILLEGAS pH Capsule Tino mendoza Start: 09-30-2020 Esophageal manometry Tino Shaw Start: 09-10-2020 Esophageal manometry Tino Shaw Start: 08-30-2020 Screening mammography bi 2-view breast inc cad Mack Uribe MD Work Phone: Start: 05-26-2020 Radiologic exam abdomen 1 view Mack henry MD Work Phone: Start: 05-21-2020 Myocardial spect multiple studies Matilde Godinez MD Work Phone: Start: 03-05-2017 Colonoscopy Eric Nina MD Work Phone: Abdominal hysterectomy Jason Puentes Cholecystectomy Jason hsu Colonoscopy Jason salas Esophageal hiatus hernia repair Mack Uribe Work Phone: Esophagogastroduodenoscopy A makenna Shaw Hiatal hernia (disorder) Anurag Puentes History of cholecystectomy S/P l aparoscopic cholecystectomy Mack Uribe Work Phone: Hysterectomy Tino Valeria Laparoscopic cholecystectomy Tino Shaw Placement of stent i n coronary artery Tinorj Shaw Right colectomy Tino mendoza Plan of Treatment Date Care Activity Detail Author Start: 04-07-2026 Urine microalbumin profile [facility] Start: 03-02-2026 Colonoscopy COLONOSCOPY [facility] Start: 03-02-2026 COLORECTAL CANCER SCREENING COLORECTAL CANCER SCREENING [facility] Start: 10-17-2024 BP Controlled (<130/80) BP Controlle d (<130/80) [facility] Start: 03-29-2024 Mammography Mammogram Screening [facility] Start: 03-29-2024 Screening for malign ant neoplasm of breast Mammogram Screening [facility] Start: 01-11-2024 ANNUAL PCP TEAM ASSOCIATE PROFESSOR OF VIOLIN SANDRA DISEASE VISIT ANNUAL PCP TEAM CHRONIC DISEASE VISIT [facility] Start: 01-11-2024 BP CONTROLLED (<130/80) BP CONTROLLE D (<130/80) [facility] Start: 10-06-2023 BP CONTROLLED (<130/80) BP CONTROLLE D (<130/80) [facility] Start: 09-15-2023 ANNUAL PCP TEAM ASSOCIATE PROFESSOR OF VIOLIN SANDRA DISEASE VISIT ANNUAL PCP TEAM CHRONIC DISEASE VISIT [facility] Start: 08-19-2023 Hepatitis B screening URINE AL BUMIN:CREATININE RATIO [facility] Start: 08-19-2023 Hepatitis B surface antibody level LDL CHOLESTEROL [facility] Start: 08-13-2023 Depression Assessment Depression Ass essment [facility] Start: 06-28-2023 [facility] Start: 05-26-2023 ANNUAL PCP TEAM ASSOCIATE PROFESSOR OF VIOLIN SANDRA DISEASE VISIT ANNUAL PCP TEAM CHRONIC DISEASE VISIT [facility] Start: 05-26-2023 BP CONTROLLED (<130/80) BP CONTROLLE D (<130/80) [facility] Start: 05-26-2023 PNEUMOCOCCAL (2 - PCV) PNEUMOCOCCAL (2 - PCV) [facility] Comment on above: Postponed from 04/20 (Declined at this time) Start: 05-23-2023 Glaucoma screening Dilated Retinal E xam [facility] Start: 05-23-2023 Hepatitis C antibody , confirmatory test DILATED RETINAL EXAM [facility] Start: 05-16-2023 [facility] Start: 05-09-2023 BP CONTROLLED (<130/80) BP CONTROLLE D (<130/80) [facility] Start: 04-13-2023 Covid-19 Vaccine () Covid-19 Vaccine () [facility] Start: 09-01-2023 Covid-19 Vaccine ( season) Covid-19 Vaccine () [facility] Start: 04-13-2023 Influenza vaccination [facility] Start: 03-29-2023 ANNUAL PCP TEAM ASSOCIATE PROFESSOR OF VIOLIN SANDRA DISEASE VISIT ANNUAL PCP TEAM CHRONIC DISEASE VISIT [facility] Start: 02-16-2023 Hemoglobin A1c measurement HbA1C [facility] Start: 02-16-2023 Hemoglobin A1c/Hemoglobin.total in Blood HBA1C [facility] Start: 01-20-2023 ANNUAL PCP TEAM ASSOCIATE PROFESSOR OF VIOLIN SANDRA DISEASE VISIT ANNUAL PCP TEAM CHRONIC DISEASE VISIT [facility] Start: 01-10-2023 End: 03-12-2023 Bacteria identified in Urine by Culture [facility] Work Phone: Comment on above: Expected: 01/10/2023 , Expires: 03/12/2023 Start: 01-10-2023 End: 03-12-2023 Comprehensive metabolic 2000 panel - Serum or Plasma [facility] Work Phone: Comment on above: Expected: 01/10/2023 , Expires: 03/12/2023 Start: 12-14-2022 ANNUAL PCP TEAM ASSOCIATE PROFESSOR OF VIOLIN SANDRA DISEASE VISIT ANNUAL PCP TEAM CHRONIC DISEASE VISIT [facility] Start: 12-06-2022 End: 02-05-2023 25-hydroxyvitamin D3 [Mass/volume] in Serum or Plasma VITAMIN D 25 HYDROXY Lab Routine Vitamin D deficiency Expected: 12/06/2022 (Approximate), Expires: 02/05/2023 [facility] Work Phone: Comment on above: Expected: 12/06/2022 (Approximate), Expires: 02/05/2023 Start: 12-06-2022 End: 02-05-2023 ALK PHOS ISOENZYM BL ALK PHOS ISOENZYM BL Lab Routine Elevated alkaline phosphatase level Expected: 12/06/2022 (Approximate), Expires: 02/05/2023 [facility] Work Phone: Comment on above: Expected: 12/06/2022 (Approximate), Expires: 02/05/2023 Start: 11-22-2022 Hepatitis B screening URINE AL BUMIN:CREATININE RATIO [facility] Start: 11-22-2022 Hepatitis B surface antibody level LDL CHOLESTEROL [facility] Start: 11-18-2022 Mammography MAMMOGRAM [facility] Start: 09-28-2022 Hemoglobin A1c/Hemoglobin.total in Blood HBA1C [facility] Start: 09-15-2022 End: 11-15-2022 Bacteria identified in Urine by Culture [facility] Work Phone: Comment on above: Expected: 09/15/2022 , Expires: 11/15/2022 Start: 09-15-2022 End: 11-15-2022 Urinalysis complete panel - Urine [facility] Work Phone: Comment on above: Expected: 09/15/2022 , Expires: 11/15/2022 Start: 08-30-2022 End: 10-30-2022 Urate [Mass/volume] in Serum or Plasma URIC ACID BLOOD Lab Routine Gout with manifestations Hyperuricemia, hx Expected: 08/30/2022, Expires: 10/30/2022 [facility] Work Phone: Comment on above: Expected: 08/30/2022 , Expires: 10/30/2022 Start: 08-13-2022 DEPRESSION ASSESSMENT DEPRESSION ASS ESSMENT [facility] Start: 07-08-2022 Duplex scan of lower limb veins US venous duplex LE LT [facility] Start: 07-08-2022 US Lower extremity v ein - left [facility] Start: 05-24-2022 Hemoglobin A1c/Hemoglobin.total in Blood HBA1C [facility] Start: 05-23-2022 End: 07-23-2022 Bacteria identified in Urine by Culture [facility] Work Phone: Comment on above: Expected: 05/23/2022 , Expires: 07/23/2022 Start: 04-13-2022 Influenza vaccination INFLUENZA (#1) [facility] Start: 03-24-2022 ANNUAL PCP TEAM ASSOCIATE PROFESSOR OF VIOLIN SANDRA DISEASE VISIT ANNUAL PCP TEAM CHRONIC DISEASE VISIT [facility] Start: 03-09-2022 NPV, Provider: Michael Spencer, Status: Pen, Time: 2:00 PM NPV, Provider: Michael Spencer, Status: Pen, Time: 2:00 PM [place] [id number] DO Work Phone: Start: 03-07-2022 Adult depression screening assessment DEPRESSION SCREENING [facility] Start: 03-05-2022 Colonoscopy COLONOSCOPY [facility] Start: 03-05-2022 COLORECTAL CANCER SCREENING COLORECTAL CANCER SCREENING [facility] Start: 03-05-2022 Screening for malign ant neoplasm of colon [facility] Start: 01-26-2022 [facility], Provider: Michael West, Status: Pen, Time: 12:00 PM [facility], Provider: Michael West, Status: Pen, Time: 12:00 PM [facility] 250 DO Work Phone: Start: 01-15-2022 CT of head without contrast CT head/brain wo [facility] Start: 01-15-2022 Plain chest X-ray XR chest 1V portab [facility] Start: 01-09-2022 COVID-19 VACCINE (5 - Booster for Pfizer series) COVID-19 VACCINE (5 - Booster for Pfizer series) [facility] Start: 11-21-2021 End: 11-21-2022 ALBUMIN/CREAT RATIO RND UR ALBUMIN/CREAT RATIO RND UR Lab Routine Controlled type 2 diabetes mellitus without complication, without long-term current use of insulin (HCC) Expected: 11/21/2021, Expires: 11/21/2022 [facility] Work Phone: Comment on above: Expected: 11/21/2021 , Expires: 11/21/2022 Start: 11-21-2021 End: 11-21-2022 CBC panel - Blood by Automated count CBC Lab Routine Controlled type 2 diabetes mellitus without complication, without long-term current use of insulin (HCC) Expected: 11/21/2021, Expires: 11/21/2022 [facility] Work Phone: Comment on above: Expected: 11/21/2021 , Expires: 11/21/2022 Start: 11-21-2021 End: 11-21-2022 Comprehensive metabolic 2000 panel - Serum or Plasma COMP METABOLIC PANEL Lab Routine Controlled type 2 diabetes mellitus without complication, without long-term current use of insulin (HCC) Expected: 11/21/2021, Expires: 11/21/2022 [facility] Work Phone: Comment on above: Expected: 11/21/2021 , Expires: 11/21/2022 Start: 11-21-2021 End: 11-21-2022 Hemoglobin A1c/Hemoglobin.total in Blood HGB A1C Lab Routine Controlled type 2 diabetes mellitus without complication, without long-term current use of insulin (HCC) Expected: 11/21/2021, Expires: 11/21/2022 [facility] Work Phone: Comment on above: Expected: 11/21/2021 , Expires: 11/21/2022 Start: 11-21-2021 End: 11-21-2022 LIPID PANEL BASIC LIPID PANEL BASIC Lab Routine Controlled type 2 diabetes mellitus without complication, without long-term current use of insulin (HCC) Expected: 11/21/2021, Expires: 11/21/2022 [facility] Work Phone: Comment on above: Expected: 11/21/2021 , Expires: 11/21/2022 Start: 11-21-2021 End: 01-21-2022 Thyrotropin [Units/volume] in Serum or Plasma TSH BLD Lab Routine Controlled type 2 diabetes mellitus without complication, without long-term current use of insulin (HCC) Expected: 11/21/2021, Expires: 01/21/2022 [facility] Work Phone: Comment on above: Expected: 11/21/2021 , Expires: 01/21/2022 Start: 10-03-2021 Hemoglobin A1c/Hemoglobin.total in Blood HBA1C [facility] Start: 10-02-2021 Hepatitis B screening URINE AL BUMIN:CREATININE RATIO [facility] Start: 10-02-2021 Hepatitis B surface antibody level LDL CHOLESTEROL [facility] Start: 08-13-2021 DEPRESSION ASSESSMENT DEPRESSION ASS ESSMENT [facility] Start: 05-25-2021 BP CONTROLLED (<130/80) BP CONTROLLE D (<130/80) [facility] Start: 03-10-2021 FUV, Provider: Tino Shaw, Status: Sánchez, Time: 1:00 PM [facility], Provider: Tino Shaw, Status: Pen, Time: 1:00 PM [facility] DO Work Phone: Start: 03-10-2021 Patient encounter procedure [facility] [place] Start: 03-07-2021 FUV, Provider: Tino Shaw, Status: Pen, Time: 9:00 AM [facility]UV, Provider: Tino Shaw, Status: Pen, Time: 9:00 AM [facility] DO Work Phone: Start: 03-07-2021 Patient encounter procedure [facility] [place] Start: 03-01-2021 End: 03-02-2022 Perflutren Lipid Microsphere (Activated) 1.3 mL / NaCL 0.9% T.V. 10 mL Injectable . ; DOSE = 0.5 mL IntraVenous Push OnceCa.[id number] mL/Kg/DOSE x 97 Kg = 0.5 mL/Dose (Daily Total is 0.5 mL)Clinician Notes: 1. Dilute 1.3 mL of activated DEFINITY with 8.7 mL of normal saline in a 10 mL syringe.2. Inject 0.5 mL of diluted DEFINITY when notified the images/film are unclear to enhance view of Left Ventricular borders.3. Repeat 0.5 mL of DEFINITY until clear images are obtained, not to exceed 10 mLs.4. Once images are obtained or limit of medication is reached, flush line with 10 mL of Normal Saline. Start: 01-Mar-2021 End: 01-Mar-2022 Ordered: 01-Mar-2021 Danna Rm Intent Comments: 1. Dilute 1.3 mL of activated DEFINITY with 8.7 mL of normal saline in a 10 mL syringe.2. Inject 0.5 mL of diluted DEFINITY when notified the images/film are unclear to enhance view of Left Ventricular borders.3. Repeat 0.5 mL of DEFINITY until clear images are obtained, not to exceed 10 mLs.4. Once images are obtained or limit of medication is reached, flush line with 10 mL of Normal Saline. [facility] Comment on above: 1. Dilute 1.3 mL of activated DEFINITY with 8.7 mL of normal saline in a 10 mL syringe.2. Inject 0.5 mL of diluted DEFINITY when notified the images/film are unclear to enhance view of Left Ventricular borders.3. Repeat 0.5 mL of DEFINITY until clear images are obtained, not to exceed 10 mLs.4. Once images are obtained or limit of medication is reached, flush line with 10 mL of Normal Saline. Start: 03-01-2021 Abdominal pain Abdominal pain Date: 01-Mar-2021 [facility] Start: 03-01-2021 Chest pain Chest pain Keith e: 01-Mar-2021 [facility] Start: 03-01-2021 End: 03-02-2022 [facility] Comment on above: IF patient HAS a sec ure IV access & is Unconscious, Conscious, NPO or Unable to Eat or Drink. Repeat until BG reaches 100 mg/dL or greater. Push 2-3 mL/minute. Discontinue once BG reaches 100 mg/dL or greater. IF patient DOES NOT have secure IV access & is Unconscious, Conscious, NPO or Unable to Eat or Drink. Repeat until BG reaches 100 mg/dL or greater. Discontinue once BG reaches 100 mg/dL or greater. Start: 02-10-2021 FUV, Provider: Tino Shaw, Status: Pen, Time: 9:00 AM V, Provider: Tino Shaw, Status: Pen, Time: 9:00 AM [facility] Work Phone: Start: 02-10-2021 Patient encounter procedure [facility] [place] Start: 01-25-2021 End: 01-26-2022 Sodium Chloride 0.9% Infusion . ; IV Bag Volume = 1,000 mL Run at: 125 mL/hr IntraVenous Start: 25-Jan-2021 End: 25-Jan-2022 Ordered: 25-Jan-2021 Katelyn Evans [facility] Start: 08-20-2019 3 comp foot exam completed DIABETIC FOOT EXAM [facility] Start: 08-20-2019 Diabetic foot examination Diabetic Foot Exam [facility] Start: 06-18-2019 COLONOSCOPY AND EGD WITH POLYPECTOMIES AND BIOPSIES COLONOSCOPY AND EGD WITH POLYPECTOMIES AND BIOPSIES Date: 18-Jun-2019 Comments: Provider name: Tino ShawCreated By: [facility] Comment on above: Provider name: Tino ShawCreated By: [facility] Start: 03-13-2019 Hepatitis C antibody , confirmatory test DILATED RETINAL EXAM [facility] Start: 04-20-2018 PNEUMOCOCCAL (2 - PCV) PNEUMOCOCCAL (2 - PCV) [facility] Start: 04-20-2018 Pneumococcal vaccination [facility] Start: 02-08-2014 SHINGRIX VACCINE (1 of 2) SHINGRIX VACCINE (1 of 2) [facility] Start: 02-08-2009 COLOGUARD (FIT-DNA) COLOGUARD (FIT-D NA) [facility] Start: 02-08-[address] COLONOGRAPHY [facility] Start: 02-08-2009 FECAL OCCULT BLOOD FECAL OCCULT BLOO D [facility] Start: 02-08-2009 Screening for malign ant neoplasm of colon [facility] Start: 02-08-2009 SIGMOIDOSCOPY SIGMOIDOSCOPY [facility] Basophil count [facility] Work Phone: Basophil percent differential count [facility] Work Phone: Calcium [Mass/volume ] in Serum or Plasma [facility] Work Phone: Calculated LDL cholesterol level [facility] Work Phone: Carbon dioxide, tota l [Moles/volume] in Serum or Plasma [facility] Work Phone: Chloride [Moles/volu me] in Serum or Plasma [facility] Work Phone: Cholesterol [Mass/volume] in Serum or Plasma [facility] Work Phone: Cholesterol in HDL [Mass/volume] in Serum or Plasma [facility] Work Phone: Cholesterol.total/Ch ole sterol in HDL [Mass Ratio] in Serum or Plasma [facility] Work Phone: Creatinine and Glomerular filtration rate.predicted panel - Serum, Plasma or Blood [facility] Work Phone: End: 02-06-2024 ECG COMPLETE ECG COMPLETE ECG Routine Essential hypertension Atherosclerosis of sitka coronary artery of [place] heart without angina pectoris Controlled type 2 diabetes mellitus without complication, without long-term current use of insulin (HCC) Presence of drug coated stent in right coronary artery Obesity, Class II, BMI 35-39.9 E66.9 1 Occurrences starting 02/05/2023 until 02/06/2024 [facility] Work Phone: Comment on above: 1 Occurrences starti ng 02/05/2023 until 02/06/2024 ECG COMPLETE ECG COMPLETE ECG 10/18/2023 2:41 PM EST [facility] Eosinophil percent differential count [facility] Work Phone: Eosinophils [#/volum e] in Blood [facility] Work Phone: Erythrocyte mean corpuscular volume determination [facility] Work Phone: Erythrocytes [#/volu me] in Blood [facility] Work Phone: Glucose [Mass/volume ] in Serum or Plasma [facility] Work Phone: Hematocrit [Volume Fraction] of Blood [facility] Work Phone: Hemoglobin [Mass/volume] in Blood [facility] Work Phone: Hemoglobin distribution, width determination [facility] Work Phone: Hepatitis C virus Ig G Ab [Presence] in Serum or Plasma by Immunoassay [facility] HIV 1+2 Ab+HIV1 p24 Ag [Presence] in Serum or Plasma by Immunoassay [facility] Leukocytes [#/volume ] in Blood [facility] Work Phone: Lymphocyte count [facility] Work Phone: Lymphocyte percent differential count [facility] Work Phone: End: 01-19-2024 MILY SCREENING MILY SCREENING Radiology Routine Encounter for screening mammogram for breast cancer 1 Occurrences starting 12/20/2022 until 01/19/2024 [facility] Work Phone: Comment on above: 1 Occurrences starti ng 12/20/2022 until 01/19/2024 Mean corpuscular hemoglobin concentration determination [facility] Work Phone: Mean corpuscular hemoglobin determination [facility] Work Phone: Measurement of renal function [facility] Work Phone: Monocyte count [facility] Work Phone: Monocyte percent differential count [facility] Work Phone: Neutrophil count [facility] Work Phone: Neutrophil percent differential count [facility] Work Phone: OUTSIDE VENDOR CARDI AC OUTPATIENT EXTENDED RHYTHM RECORDING (WITHOUT TELEMETRY) OUTSIDE VENDOR CARDIAC OUTPATIENT EXTENDED RHYTHM RECORDING (WITHOUT TELEMETRY) Holter Routine Palpitations Ordered: 10/18/2023 [facility] Work Phone: Comment on above: Ordered: 10/18/2023 Patient Education [facility] Work Phone: Patient referral [facility] Work Phone: Platelet mean volume determination [facility] Work Phone: Platelets [#/volume] in Blood [facility] Work Phone: Potassium [Moles/volume] in Serum or Plasma [facility] Work Phone: Sodium [Moles/volume ] in Serum or Plasma [facility] Work Phone: Triglyceride [Mass/volume] in Serum or Plasma [facility] Work Phone: Troponin I.cardiac [Mass/volume] in Serum or Plasma by High sensitivity method [facility] Work Phone: Urea nitrogen [Mass/volume] in Serum or Plasma [facility] Work Phone: VLDL cholesterol measurement [facility] Work Phone: [facility] [id number] Work Phone: [facility] NEGATED: Highlighted row has been ruled out! Planned Goals not documented [facility] [id number] Work Phone: Immunizations Immunization Date Immunization Notes Care Provider [facility] 06-12-2022 zoster vaccine recombinant Xavier Arevalo RT(R) [facility] 05-26-2022 COVID-19 booster vaccine, age 12+ yr, bivalent (PFIZER-BIONTECH) Mack Uribe MD Work Phone: [facility] Comment on above: Result Comment: 2022: [id number] 04-09-2022 zoster vaccine recombinant Xavier Waltonman RT(R) [facility] 04-07-2022 influenza, injectabl e, quadrivalent, preservative free Danaudra Arevalo RT(R) [facility] 04-07-2022 influenza virus vaccine, unspecified formulation Screen C[facility] 11-14-2021 COVID-19 mRNA, Comirnaty (Pfizer) DO Alexsander Lehman Work Phone: [facility] 11-14-2021 SARS-CoV-2 mRNA (gicypmhgepi-xgvw-zwtiz se) vaccine Juanita DAVIS [facility] 05-20-2021 COVID-19 mRNA, Comirnaty (Pfizer) DO Alexsander Lehman Work Phone: [facility] 05-14-2021 influenza virus vaccine, unspecified formulation Juanitajamilah DAVIS [facility] 05-14-2021 influenza, injectabl e, quadrivalent, preservative free Eunice Pearl MD Work Phone: [facility] 11-13-2020 COVID-19 mRNA, Comirnaty (Pfizer) DO Alexsander Lehman Work Phone: [facility] Comment on above: Result Comment: 2022: [id number] 10-22-2020 COVID-19 mRNA, Comirnaty (Pfizer) DO Alexsander Lehman Work Phone: [facility] Comment on above: Result Comment: 2022: [id number] 05-25-2020 influenza virus vaccine, unspecified formulation Juanita DAVIS [facility] 05-25-2020 influenza, injectabl e, quadrivalent, contains preservative Mack Uribe MD Work Phone: [facility] 05-20-2019 influenza virus vaccine, unspecified formulation Juanita DAVIS [facility] 05-20-2019 influenza, injectabl e, quadrivalent, contains preservative Mack Uribe MD Work Phone: [facility] 05-04-2018 influenza virus vaccine, unspecified formulation Juanita DAVIS [facility] 05-04-2018 influenza, injectabl e, quadrivalent, contains preservative Mack Uribe MD Work Phone: [facility] 04-20-2017 influenza virus vaccine, unspecified formulation Juanita DAVIS [facility] 04-20-2017 influenza, injectabl e, quadrivalent, contains preservative Mack Uribe MD Work Phone: [facility] 04-20-2017 pneumococcal polysaccharide vaccine, 23 valent Mack Uribe MD Work Phone: [facility] 04-07-2016 tetanus toxoid, redu sher diphtheria toxoid, and acellular pertussis vaccine, adsorbed Mack Uribe MD Work Phone: [facility] 08-26-2012 influenza virus vaccine, unspecified formulation Mack Uribe MD Work Phone: [facility] NEGATED: Highlighted row has not occurred!06-26-2023 influenza virus vaccine, unspecified formulation Juanita DAVIS [facility] Payers Date Payer Category Payer Self-pay [id number] 2022 Unknown [employer] PPO OOS [id number] 2022-Present [phone] [address] [place] [address] PPO [id number] 2022 Unknown [id number] 2019 Unknown [id number] 2019 Unknown 1964 Unknown [id number] 1964 Unknown [id number] [id number] 1964 Unknown [id number] [id number] 1964 Unknown [id number] [id number] 1964 Unknown [id number] [id number] 1964 Unknown [id number] 2.16.840.1.765129.3.579.2.727 1964 Unknown [id number] [id number] 1964 Unknown [id number] 2.16.840.1.818022.3.579.2.727 1964 Unknown [id number] 2.16.840.1.847599.3.579.2.727 1964 Unknown [id number] [id number] 1964 Unknown [id number] [id number] Unknown HCAP/HFA/FAP Active [id number] Unknown [id number] [id number] Unknown [id number] [id number]1 Unknown [id number] [id number] Unknown [id number] [id number] Unknown [id number] [id number] Unknown [id number] [id number] Unknown [id number] [id number] Unknown [id number] Social History Date Type Detail Facility Start: 09-15-2022 End: 02-05-2023 Never a smoker Never a smoker [facility] Tobacco smoking consumption unknown [facility] Start: 08-25-2012 End: 01-16-2022 Tobacco smoking status NHIS Never smoked tobacco [facility] Start: 06-27-2021 End: 10-18-2023 Alcohol intake Current non-drinker of alcohol (finding) [facility] Start: 10-22-2019 End: 05-23-2022 History SDOH Alcohol Frequency 1 [facility] Start: 10-22-2019 End: 09-15-2022 History SDOH Alcohol Std Drinks 98 [facility] Start: 03-04-2020 End: 09-15-2022 History SDOH Social Connections Phone 3 [facility] Start: 03-04-2020 End: 09-15-2022 History SDOH Social Connections Get Together 2 [facility] Start: 03-04-2020 History SDOH Social Connections Living 4 [facility] Start: 03-03-2020 Education 14 [facility] Start: 1965 Sex Assigned At Female [facility] Start: 04-25-2020 End: 05-26-2022 Exposure to SARS-CoV-2 (event) Not sure [facility] Start: 12-24-2021 End: 01-03-2022 Exposure to SARS-CoV-2 (event) Unable to assess [facility] Start: 02-23-2022 Tobacco smoking stat us IDIS Ex-smoker (finding) [facility] Start: 08-25-2012 Tobacco use and exposure Smokeless tobacco non-user [facility] Start: 09-15-2022 End: 02-05-2023 Sex Assigned At [facility] Start: 09-15-2022 History SDOH Alcohol Std Drinks 0 [facility] How often do you get together with friends or relatives? Patient refused [facility] Do you belong to any clubs or organizations such as congregational groups, unions, fraternal or athletic groups, or school groups? No [facility] Are you now , , , , never or living with a partner? [facility] How often to you hav e a drink containing alcohol? Never [facility] Do you feel stress - tense, restless, nervous, or anxious, or unable to sleep at night because your mind is troubled all the time - these days [OSQ] Not at all [facility] (I/We) worried wheth er (my/our) food would run out before (I/we) got money to buy more. Never true [facility] Start: 03-04-2020 Gender identity Identifies as female gender (finding) [facility] Start: 03-04-2020 Sexual orientation Heterosexual (fin ding) [facility] Are you now , , , , never or living with a partner? [facility] How hard is it for y ou to pay for the very basics like food, housing, medical care, and heating Hard [facility] Work Phone: Do you feel stress - tense, restless, nervous, or anxious, or unable to sleep at night because your mind is troubled all the time - these days [OSQ] To some extent [facility] (I/We) worried wheth er (my/our) food would run out before (I/we) got money to buy more. Sometimes true [facility] Work Phone: In the past 12 month s, was there a time when you were not able to pay the mortgage or rent on time? Yes [facility] Sex Assigned At Sex [facility] NEGATED: Highlighted row - - [facility] DO Work Phone: Goals Date Patient Goal Desired Activity /State Functional Status Date Assessment Result Facility 08-10-2023 Functional Status No [facility] 06-26-2023 Functional Status No [facility] 05-11-2023 Functional Status No [facility] 05-03-2023 Functional Status No [facility] 03-29-2023 Functional Status No [facility] 01-16-2022 Functional status Patient at Baseline [facility] Work Phone: Functional observable [facility] NEGATED: Highlighted row Functional performance Functional status health issues are not documented Disease [facility] 201 DO Work Phone: Mental Status Date Assessment Result Facility 01-16-2022 Cognitive function Cognitive Sta tus Patient at Baseline [facility] Work Phone: 03-03-2021 Cognitive functi ons [id number] [facility] NEGATED: Highlighted row Cognitive function [Interpretation] Cognitive status health issues are not documented Disease -[facility] DO Work Phone: Clinical Notes 03-04-2020 to 10-18-2023 Becki Fish MA - 10/18/2023 3:03 PM Massimo Farrar MD - 10/18/2023 2:45 PM EST Note Date & Type Note Facility 10-18-2023 Note HNO ID: [id number] Author: MASSIMO MCCULLOUGH MD Service: ? Author Type: Physician Type: Progress Notes Filed: 10/18/2023 15:11 Note Text: [facility] [place] [facility] CARDIOLOGY OUTPATIENT VISIT DATE October 18, 2023 OUTPATIENT VISIT TYPE NEW PRIMARY CARE PHYSICIAN: Mack Uribe [address] [place] [id number] A written report of the findings and recommendations will be sent to the requesting provider via shared medical record or via [employer]. Patient is being seen at the request of Dr Godinez for dizziness. HISTORY OF PRESENT ILLNESS: Ms. Ortiz is a 58 year old female with HTN, and HLD, CAD, s/p PCI and on medical therapy. No recent evidence of new ischemia. Complained of palpitations and dizziness. IMPRESSION: Palpitation: Unclear etiology. ECG normal. 2 weeks zio to assess rhythm correlation with symptoms. F/u in 2 months after result PLAN AND RECOMMENDATIONS: Palpitation: Unclear etiology. ECG normal. 2 weeks zio to assess rhythm correlation with symptoms. F/u in 2 months after result REVIEW OF SYSTEMS: Chest pain No Shortness of breath No Bleeding No Dizziness No Syncope No Palpations No 10 systems reviewed and are negative with the exception of pertinent positives described in HPI PHYSICAL EXAMINATION: BP 120/70 Pulse 68 Wt 89.6 kg (197 lb 8.5 oz) BMI 34.99 kg/m? HEENT: normocephalic, EOMI Heart: regular rhythm Lungs: clear to auscultation Abdomen: bowel sounds present Extremities: no edema Musculoskeletal: chest wall nontender Neurological: alert and oriented Psychiatric: appropriate and cooperative Skin: no rash, cellulitis or lesions appreciated CARDIOVASCULAR MEDICINE TESTING: I have personally reviewed ECG Last EKG Result Conclusion ECG COMPLETE Collected: 10/18/2023 2:41 PM (Preliminary result) Impression: NORMAL SINUS RHYTHM NORMAL ECG PAST CARDIAC HISTORY: See below PAST MEDICAL HISTORY Diagnosis Date Asthma dx'd 15 yrs ago- has not been on medication Atherosclerotic coronary vascular disease 05/20/2015 Lexiscan perfusion normal, EF 68%; Echo normal; Cath 05/2014 Irregularies wiith 50% rca in-stent stenosis. 09/2012 RCA CARRI X2 to prox vessel Bradycardia CAD (coronary artery disease) Carpal tunnel syndrome Chest pain Colon polyp Cscope 05/29/14 w polyps, f/u 3 yrs. Depression Diverticulitis NARCISO (generalized anxiety disorder) HTN (hypertension) Hyperlipidemia Pneumonia Sleep apnea Suspected COVID-19 virus infection 03/04/2020 Vitamin D deficiency 04/09/2012 PAST SURGICAL HISTORY Procedure Laterality Date CARDIAC CATHETERIZATION HX 08/2012 stents x 2 COLECTOMY PARTIAL W/ANASTOMOSIS 2017 Sigmoidectomy COLONOSCOPY 05/29/2014 - repeat 3 years ECHO 05/20/2015 mildly dilated IVC HERNIA REPAIR HX Bilateral -hiatal hernia LEFT HEART CATH 05/12/2014 01/26/22- unremarkable LEXISCAN STRESS TEST PANEL 05/20/2015 NORMAL SALPINGO-OOPHORECTOMY COMPL/PRTL UNI/BI SPX 1994 Salpingo-oophorectomy TOTAL ABDOMINAL HYSTERECT W/WO RMVL TUBE OVARY 1989 Hysterectomy, DORENE Social History Tobacco Use Smoking status: Never Smokeless tobacco: Never Vaping Use Vaping Use: Never used Substance Use Topics Alcohol use: No Drug use: No FAMILY HISTORY Problem Relation Age of Onset Macular Degen Father Diabetes Father Coronary Artery Disease Father Multiple stents in early 60's, age 70 Hypertension Father No Ocular Disease Mother Colon Cancer Mother 53 Hypertension Mother Diabetes Mother Hypertension Brother Cancer Brother epithelioid of leg. Colon Cancer Maternal Grandmother other (htn) Maternal Grandmother other (lung cancer) Maternal Grandfather Coronary Artery Disease Paternal Aunt Coronary Artery Disease Paternal Uncle Coronary Artery Disease Paternal Uncle ALLERGIES Allergen Reactions Nitrofurantoin [place]* Vomiting, Shortness of Breath, Anaphylaxis, Cough Allopurinol Rash patient reported in Home Inventory S[pecialists message noted on November 21, 2017 Bactrim [Sulfametho* Hives Neurontin [Gabapent* Other: See Comments Mouth sores CURRENT MEDICATIONS: nebivolol (BYSTOLIC) 10 mg tablet TAKE 2 TABLETS BY MOUTH IN THE MORNING AND 1 TABLET IN THE EVENING (Patient taking differently: Take 10 mg by mouth once daily.) oxybutynin ER (DITROPAN XL) 10 mg 24 hr tablet Take 10 mg by mouth. rosuvastatin (CRESTOR) 40 mg tablet Take 1 tablet by mouth daily at bedtime. nitroglycerin sublingual (NITROQUICK) 0.4 mg SL tablet Dissolve 1 tablet under the tongue as needed for chest pain. losartan (COZAAR) 25 mg tablet Take 1 tablet by mouth once daily. minocycline (MINOCIN, DYNACIN) 50 mg capsule Take 1 capsule by mouth twice daily. metroNIDAZOLE 0.75 % cream Apply 1 application to affected area twice daily as needed. sertraline (ZOLOFT) 50 mg tablet Take 1 tablet by mouth once daily. p (more content not included)... [facility] 10-18-2023 Nurse Note EVENT MONITOR DISPOSABLE PATCH INSTRUCTIONS Patient Name: Joy Ortiz Clinic Number: [id number] Skin prepped and cleansed with alcohol Patch secured to prepped area Monitor Activated Serial #: [id number] Patient Instructed: Prescribed order timeframe Bathing guidelines Usage of event button and diary documentation Return of monitor at the end of prescribed order Call with problems [phone] or [phone]. [phone] Patient expresses a good understanding of instructions Becki Fish MA documented in this encounter [facility] 10-18-2023 History of Present illness Narrative Images from the original note were not included. [facility] SE[facility] OF REGIONAL CARDIOLOGY OUTPATIENT VISIT DATE October 18, 2023 OUTPATIENT VISIT TYPE NEW PRIMARY CARE PHYSICIAN: Mack Uribe [address] [place] [id number] A written report of the findings and recommendations will be sent to the requesting provider via shared medical record or via [facility] [[email or web address]S. Patient is being seen at the request of Dr Godinez for dizziness. HISTORY OF PRESENT ILLNESS: Ms. Ortiz is a 58 year old female with HTN, and HLD, CAD, s/p PCI and on medical therapy. No recent evidence of new ischemia. Complained of palpitations and dizziness. IMPRESSION: Palpitation: Unclear etiology. ECG normal. 2 weeks zio to assess rhythm correlation with symptoms. F/u in 2 months after result PLAN AND RECOMMENDATIONS: Palpitation: Unclear etiology. ECG normal. 2 weeks zio to assess rhythm correlation with symptoms. F/u in 2 months after result REVIEW OF SYSTEMS: Chest pain No Shortness of breath No Bleeding No Dizziness No Syncope No Palpations No 10 systems reviewed and are negative with the exception of pertinent positives described in HPI PHYSICAL EXAMINATION: BP 120/70 Pulse 68 Wt 89.6 kg (197 lb 8.5 oz) BMI 34.99 kg/m HEENT: normocephalic, EOMI Heart: regular rhythm Lungs: clear to auscultation Abdomen: bowel sounds present Extremities: no edema Musculoskeletal: chest wall nontender Neurological: alert and oriented Psychiatric: appropriate and cooperative Skin: no rash, cellulitis or lesions appreciated CARDIOVASCULAR MEDICINE TESTING: I have personally reviewed ECG Last EKG Result Conclusion ECG COMPLETE Collected: 10/18/2023 2:41 PM (Preliminary result) Impression: NORMAL SINUS RHYTHM NORMAL ECG PAST CARDIAC HISTORY: See below PAST MEDICAL HISTORY Diagnosis Date Asthma dx'd 15 yrs ago- has not been on medication Atherosclerotic coronary vascular disease 05/20/2015 Lexiscan perfusion normal, EF 68%; Echo normal; Cath 05/2014 Irregularies wiith 50% rca in-stent stenosis. 09/2012 RCA CARRI X2 to prox vessel Bradycardia CAD (coronary artery disease) Carpal tunnel syndrome Chest pain Colon polyp Cscope 05/29/14 w polyps, f/u 3 yrs. Depression Diverticulitis NARCISO (generalized anxiety disorder) HTN (hypertension) Hyperlipidemia Pneumonia Sleep apnea Suspected COVID-19 virus infection 03/04/2020 Vitamin D deficiency 04/09/2012 PAST SURGICAL HISTORY Procedure Laterality Date CARDIAC CATHETERIZATION HX 08/2012 stents x 2 COLECTOMY PARTIAL W/ANASTOMOSIS 2017 Sigmoidectomy COLONOSCOPY 05/29/2014 - repeat 3 years ECHO 05/20/2015 mildly dilated IVC HERNIA REPAIR HX Bilateral -hiatal hernia LEFT HEART CATH 05/12/2014 01/26/22- unremarkable LEXISCAN STRESS TEST PANEL 05/20/2015 NORMAL SALPINGO-OOPHORECTOMY COMPL/PRTL UNI/BI SPX 1994 Salpingo-oophorectomy TOTAL ABDOMINAL HYSTERECT W/WO RMVL TUBE OVARY 1990 Hysterectomy, DORENE Social History Tobacco Use Smoking status: Never Smokeless tobacco: Never Vaping Use Vaping Use: Never used Substance Use Topics Alcohol use: No Drug use: No FAMILY HISTORY Problem Relation Age of Onset Macular Degen Father Diabetes Father Coronary Artery Disease Father Multiple stents in early 60's, age 70 Hypertension Father No Ocular Disease Mother Colon Cancer Mother 53 Hypertension Mother Diabetes Mother Hypertension Brother Cancer Brother epithelioid of leg. Colon Cancer Maternal Grandmother other (htn) Maternal Grandmother other (lung cancer) Maternal Grandfather Coronary Artery Disease Paternal Aunt Coronary Artery Disease Paternal Uncle Coronary Artery Disease Paternal Uncle ALLERGIES Allergen Reactions Nitrofurantoin [place]* Vomiting, Shortness of Breath, Anaphylaxis, Cough Allopurinol Rash patient reported in Home Inventory S[pecialists message noted on November 21, 2017 Bactrim [Sulfametho* Hives Neurontin [Gabapent* Other: See Comments Mouth sores CURRENT MEDICATIONS: nebivolol (BYSTOLIC) 10 mg tablet TAKE 2 TABLETS BY MOUTH IN THE MORNING AND 1 TABLET IN THE EVENING (Patient taking differently: Take 10 mg by mouth once daily.) oxybutynin ER (DITROPAN XL) 10 mg 24 hr tablet Take 10 mg by mouth. rosuvastatin (CRESTOR) 40 mg tablet Take 1 tablet by mouth daily at bedtime. nitroglycerin sublingual (NITROQUICK) 0.4 mg SL tablet Dissolve 1 tablet under the tongue as needed for chest pain. losartan (COZAAR) 25 mg tablet Take 1 tablet by mouth once daily. minocycline (MINOCIN, DYNACIN) 50 mg capsule Take 1 capsule by mouth twice daily. metroNIDAZOLE 0.75 % cream Apply 1 application to affected area twice daily as needed. sertraline (ZOLOFT) 50 mg tablet Take 1 tablet by mouth once daily. pantoprazole DR (PROTONIX) 40 mg tablet Take 1 tablet by mouth once daily. (Patient taking differently: Take 40 mg by mouth two times a day.) MEDICATION, NON-DATABASE Take by mouth twice daily. Tumeric with black pepper Bifidobacterium infantis (ALIGN ORAL) Take by mouth once daily. aspirin, enteric coated (ECOTRIN LOW STRENGTH) 81 mg EC tablet Take 1 tablet by mouth once daily. colchicine, gout, (MITIGARE) 0.6 mg capsule Take 1 capsule by mouth once daily. ergocalciferol 50,000 unit capsule (VITAMIN D2, DRISDOL) Take 1 capsule by mouth two times a week. (FOR EXAMPLE ONE CAPSULE ON SUNDAY AND ONE ON SUNDAY) FOR A TOTAL OF 4 WEEKS, WITH A MEAL documented in this encounter [facility] 09-18-2023 Evaluation note Encounter Date Diagnosis Assessment Notes Sep, Type 2 diabetes mellitus with unspecified complications (ICD-10 - E11.8) [facility] Other 12-01-2023 Evaluation note* Encounter Date Diagnosis Assessment Notes Treatment Notes Treatment Clinical Notes Jul, Abnormal weight gain (ICD-10 - R63.5) Jul, Type 2 diabetes mellitus with unspecified complications (ICD-10 - E11.8) Jul, Mixed hyperlipidemia (ICD-10 - E78.2) Jul, Hypertension (ICD-10 - I10) Jul, CAD (coronary artery disease) (ICD-10 - I25.10) Jul, Obstructive sleep apnea (ICD-10 - G47.33) Jul, GERD (gastroesophageal reflux disease) (ICD-10 - K21.9) Jul, Anxiety (ICD-10 - F41.9) Jul, Knee osteoarthritis (ICD-10 - M17.9) [facility] Other 11-29-2023 Evaluation note* Encounter Date Diagnosis Assessment Notes Treatment Notes Treatment Clinical Notes Jun, Barretts esophagus (ICD-10 - K22.70) [facility] Other 11-15-2023 Evaluation note* Encounter Date Diagnosis Assessment Notes Treatment Notes Treatment Clinical Notes Jun, Obstructive sleep apnea (ICD-10 - G47.33) She has previously diagnosed with significant obstructive sleep apnea, and while she has lost significant weight she continues to have signs and symptoms of the disorder. Her home sleep test did not prove sleep apnea to be present, but home sleep testing often underestimate sleep apnea severity and has up to 25% false-negative rate. Consequently we cannot rule out sleep apnea, and polysomnography is indicated. I reviewed the diagnosis and its implications and she does express good understanding. She is willing to go forward with polysomnography. Jun, Intolerance of continuous positive airway pressure (CPAP) ventilation (ICD-10 - Z78.9) She has past history of CPAP intolerance, and was not able to get used to the device despite trying multiple masks. I reviewed how the experience can be different with auto CPAP, and discussed the variety of masks available. Importantly I also reviewed wake accommodation trials as a way to overcome claustrophobia. Should she prove to have moderate sleep apnea or more, she could also conceivably be a candidate for [facility] and we reviewed that option Jun, Chronic insomnia (ICD-10 - F51.04) She has signs and symptoms of psychophysiologic insomnia, and admits to often getting stressed at the idea of her insomnia with frustration worsening her ability to fall asleep. I extensively reviewed the principles of good sleep hygiene. I encouraged her to get out of the bed and read something boring if unable to sleep in the middle of the night, but also encouraged her to minimize or eliminate nap time. I encouraged her to stay out of the bed until 11 PM on work nights while getting up at 5:30 AM, and to go to bed between 1130 and midnight on weekends while getting up at 630. Extensive discussion of sleep restriction therapy undertaken, handout provided Jun, BMI 39.0-39.9,adult (ICD-10 - Z68.39) Weight reduction would be broadly beneficial for overall health, but would also have direct benefits on apnea severity and sleep quality. Even moderate weight reduction can affect WOLF and snoring, and in some patients weight reduction can completely resolve sleep apnea Jun, Gastroesophageal reflux disease with esophagitis without hemorrhage (ICD-10 - K21.00) Nocturnal reflux is common with sleep apnea, as negative intrathoracic pressures during apnea can result in inadvertant esophageal reflux. Many times these issues will improve substantially once apneas are controlled Jun, Claustrophobia (ICD-10 - F40.240) Wake accommodation trials to make a significant difference in ability to tolerate appropriately chosen positive airway pressure interfaces. These were outlined in detail [facility] Other 10-31-2023 Evaluation note* Encounter Date Diagnosis Assessment Notes Treatment Notes Treatment Clinical Notes May, Abdominal pain (ICD-10 - R10.9) Patient reports that her symptoms have now resolved Patient reports that she frequently get abdominal pain Patient is advised to have colonoscopy scheduled today, prep instructions given today Risks and benefits of procedure explained to patient; patient verbalizes understanding. May, Barretts esophagus (ICD-10 - K22.70) Patient is to have an EGD to check on the progression of her Ramirez's May, Weight gain (ICD-10 - R63.5) Patient is to have a FibroScan to check for fatty liver Patent is [place] be [place] [facility] [place] referral sent today [facility] Other 10-06-2023 NoteProcedure [facility] poss PCI via right radial for angina class III increasing crescendo pattern Patient seen and examined. The risk/benefits of the procedure were thoroughly discussed with patient including specific attention to lack of onsite surgical backup and risk of [place] covid, and the patient agrees to proceed. Airway Assessment: Class I: Visualization of the soft palate, fauces, uvula, anterior and posteriorpillars Airway Abnormalities: none ASA Classification: ASA 2: Mild systemic disease Risks/Benefits of IV Sedation: Have been explained IV Sedation Plan: Patient agrees to IV sedation [facility] Comment on above:Result Comment: Electronically Signed By: Deloris TRENT, Jason Bishop\\.br\\Date and Time Signed: 05/18/23 09:36 [id number] Note [id number]:127[facility] 05-11-2023 Hospital Discharge instructions Patient Education 05/11/2023 11:58:49 Cardiovascular Discharge Instructions - Revised 08/04/15 (CUSTOM) [place], [place] DISCHARGE INSTRUCTIONS Diet: Resume pre-procedure diet. Increase water intake the next 2 days to flush dye out of the body. Activity: Limit activity today. Do not operate a vehicle, machinery or power tools. NO LIFTING OVER 10 POUNDS (a gallon of milk weighs 8 pounds) for 3 days. Limit climbing stairs, bending, squatting and stooping for 3 days. May resume driving in 24 hours. Let pain/discomfort guide your activity. If you are having pain, stop. Medications: Resume pre-procedure medication, unless otherwise directed. *Minimal pain, soreness and/or discomfort is expected. *You may take OTC non-steroidal anti-inflammatory to manage discomfort, unless contraindicated. If pain is not controlled with the above medications, contact your physician. Wound Care: Do not remove dressing for 24 hours unless it becomes saturated, then replace. Keep site clean and dry; inspect site daily. May shower 24 hours after the procedure. Clean site with soap and water. Pat dry and apply band aid. No tub baths, swimming or hot tubs for 3 days. Notify Physician if excessive bleeding, signs/symptoms of infection (warmth at site, fever, redness) or excessive pain at site. Post Procedure: Soreness and tenderness to the site can last up to one week. Bruising may occur to groin. Keep follow-up appointment. No smoking for 24 hours as it increases the risk of developing blood clots. If you are interested in smoking cessation, contact [facility] at [phone], ext. [phone]. In the event you are unable to reach your physician, please call Summer at [phone] and the directional drill operator will assist you. Discharging Nurse Physician Date/Time Patient or Responsible [employer] Revised 03-20, 11-19, 08-25, 07-27 Follow Up Care 05/04/2023 10:20:39 With:Juanita DAVIS Address: [address] [place] [phone]- [phone] Business (1) When:06/11/2023 09:30:00 [facility]09-08-2023 NoteHNO ID: [id number] Author: Monae Finney MD Service: ? Author Type: Physician Type: Progress Notes Filed: 04/20/2023 8:18 PM Note Text: Rheumatology History AND Physical Patient name: Joy Ortiz Requesting provider: No att. providers found SUBJECTIVE History of Present Illness: Ms. Joy Ortiz is a 58 year old female who has a past medical history of Asthma, Bradycardia, CAD, Carpal tunnel syndrome, osteoarthritis anxiety/depression, Diverticulitis, peptic ulcer disease, HTN, HLD, Pneumonia, WOLF, COVID-19 virus, gout who presents for rheumatologic evaluation. Patient previously evaluated by Dr. Cao, Dr. Nina, NEEMA Macias - new to me. PSHx: She has a past surgical history that includes total abdominal hysterect w/wo rmvl tube ovary (1989); salpingo-oophorectomy compl/prtl uni/bi spx (1994); cardiac catheterization hx (08/2012); left heart cath (05/12/2014); colonoscopy (05/29/2014); lexiscan stress test panel (05/20/2015); echo (05/20/2015); colectomy partial w/anastomosis (2016); and hernia repair hx (Bilateral). Allergies: She is allergic to nitrofurantoin monohyd/m-cryst, allopurinol, bactrim [sulfamethoxazole], and neurontin [gabapentin]. Current Meds: nebivolol, rosuvastatin, nitroglycerin sublingual, losartan, minocycline, metronidazole, sertraline, ergocalciferol (vitamin d2), pantoprazole dr, MEDICATION, NON-DATABASE, bifidobacterium infantis, colchicine, and aspirin, enteric coated. Family History: family history includes Cancer in her brother; Colon Cancer in her maternal grandmother; Colon Cancer (age of onset: 53) in her mother; Coronary Artery Disease in her father, paternal aunt, paternal uncle, and paternal uncle; Diabetes in her father and mother; Hypertension in her brother, father, and mother; Macular Degen in her father; No Ocular Disease in her mother; htn in her maternal grandmother; lung cancer in her maternal grandfather. Social History: She reports that she has never smoked. She has never used smokeless tobacco. She reports that she does not drink alcohol and does not use drugs. Labs: CBC Latest Ref Rng AND Units 01/10/2023 10/06/2022 08/19/2022 01/24/2022 WBC 3.70 - 11.00 k/uL 6.48 7.85 6.92 - HEMOGLOBIN 11.5 - 15.5 g/dL 12.6 14.0 14.5 13.4 HEMATOCRIT 36.0 - 46.0 % 39.0 42.8 44.0 39.3 PLATELETS 150 - 400 k/uL 206 252 250 - ABS NEUT (ANC) 1.45 - 7.50 k/uL 3.15 3.54 - - ABS LYMPH 1.00 - 4.00 k/uL 2.51 3.14 - - CMP Latest Ref Rng AND Units 01/10/2023 12/04/2022 10/06/2022 08/19/2022 NA 136 - 145 mmol/L - - - - SODIUM 136 - 144 mmol/L 142 - 142 144 K 3.5 - 5.1 mmol/L - - - - POTASSIUM 3.7 - 5.1 mmol/L 4.2 - 3.9 4.7 CHLORIDE 97 - 105 mmol/L 107(H) - 105 106(H) CO2 22 - 30 mmol/L 27 - 26 28 GLUCOSE 74 - 99 mg/dL 105(H) - 89 89 BUN 7 - 21 mg/dL 16 - 14 12 CREATININE 0.58 - 0.96 mg/dL 0.90 - 0.77 0.84 CALCIUM, TOTAL 8.5 - 10.2 mg/dL 9.5 - 9.8 9.8 AST 13 - 35 U/L 33 - 29 35 ALT 7 - 38 U/L 26 - 27 29 ALKALINE PHOSPHATASE 34 - 123 U/L 116 107 126(H) 103 Uric Acid Latest Ref Rng AND Units 10/06/2022 08/19/2022 03/15/2019 12/31/2018 URIC ACID 2.5 - 6.6 mg/dL 4.2 5.8 5.3 6.4 ESR, WSR Latest Ref Rng AND Units 10/06/2022 06/11/2017 05/28/2013 01/18/2012 WSR 0 - 20 mm/hr 2 15 17(H) 9 CRP Latest Ref Rng AND Units 10/06/2022 06/11/2017 04/05/2017 01/18/2012 CRP <0.9 mg/dL <0.3 0.8 2.1(H) 1.4(H) CK Latest Ref Rng AND Units 11/22/2015 06/05/2015 08/29/2012 08/27/2012 CK 30 - 220 U/L 84 205 168 123 RF and CCP Latest Ref Rng AND Units 06/11/2017 03/12/2012 01/18/2012 RHEUMATOID FACTOR <16 IU/mL <10 - <7 CCP ANTIBODY, IGG <20 Units - <15 - Hepatitis Screen Latest Ref Rng AND Units 03/12/2012 HEPBCOTOL NEGAT Negative HEPSABQ NEGAT Positive(A) HEPCABEIA NEGAT Negative HBSAGR NEGAT Negative TB Screen Latest Ref Rng AND Units 04/10/2016 TBTEST 0 x 0 - 10 x 10 mm 0x0 Antibodies Latest Ref Rng AND Units 10/06/2022 10/06/2022 11/06/2017 08/25/2012 KAYLA Negative - Positive(A) - - KAYLA TITER - - 1:160 - - KAYLA PATTERN - - Nuclear homogenous - - DNA ANTIBODY W/CONFIRMATION <30 IU/mL <12 <12 - - ANTI-SM <1.0 AI - <0.2 - - SM ANTIBODY Negative - Negative - - RIBOSOMAL LUNCH WAGON OPERATOR AB <1.0 AI - <0.2 - - RIBOSOMAL LUNCH WAGON OPERATOR QUAL Negative - Negative - - CHROMATIN AB <1.0 AI - <0.2 - - CHROMATIN AB QUAL Negative - Negative - - SSA ANTIBODY QUAL Negative - Negative - - ANTI-SSA <1.0 AI - <0.2 <0.2 - ANTI-SSB <1.0 AI - <0.2 <0.2 - LUNCH WAGON OPERATOR ANTIBODY QUAL Negative - Negative - - SCL-70 AB QUAL Negative - Negative - - SCL-70 ABS, EIA <1.0 AI - <0.2 - - CENTROMERE AB <1.0 AI - <0.2 - - CENTROMERE AB QUAL Negative - Negative - - VIVIAN-1 ANTIBODY, IGG <1.0 AI - <0.2 - - VIVIAN 1 ANTIBODY QUAL Negative - Negative - - PT SEC 8.4 - 13.0 sec - - - 9.7 PT INR 0.8 - 1.2 - - - 0.9 Urinalysis Latest Ref Rng AND Units 01/10/2023 09/15/2022 05/23/2022 04/04/2021 PROTEIN, URINE Trace, Negative 1+(A) 1+(A) - Negative PROTEIN UA (POCT) Negative mg/dL Trace(A) - Negative - PROTEIN URINE-ED (more content not included)...[facility] 04-11-2023 NoteEchocardiology Procedure Exam Date/Time Accession # Ordering Echo Transthoracic 04/11/2023 08:48 EDT [id number] Deloris TRENT, Jason Bishop CPT code [id number] Reason for Exam (Echo Transthoracic Complete) Bradycardia, ASHD I25.10;CAD Coronary artery disease Report [facility] [address] [place] [address] Adult Echocardiogram Report Name: JOY ORTIZ Study Date: 04/11/2023 08:14 AM BP: 117/62 mmHg Patient Location: [facility] HR: 54 : 1965 Gender: Female Height: 63 in Age: 58 yrs Ethnicity: [facility] Weight: 212 lb Reason For Study: CAD Coronary artery disease, Bradycardia BSA: 2.0 m2 History: CAD, Stent x2, HTN, Bradycardia Ordering Physician: Jason Puentes Referring Physician: Jason Puentes Performed By: Laura Olsen, [facility] Interpretation Summary No comparison study is available. Ejection Fraction = 60-65%. The left ventricular wall motion is normal. Diastolic dysfunction, Grade II (pseudonormalization pattern). There is trace tricuspid regurgitation. Estimated RVSP is mildly elevated at 38 mmHg. Procedure A complete two-dimensional transthoracic echocardiogram was performed (2D, M- mode, spectral and color flow Doppler). Study quality is good. I WMSI = 1.00 % Normal = 100 Segments Size X - Cannot 2 - 1-2 small Interpret 1 - Normal Hypokinetic 3 - Akinetic 4 - Dyskinetic3-5 moderate 5 - Aneurysmal 6-14 large 15-16 diffuse Left Ventricle The left ventricle is normal in size. There is normal left ventricular wall thickness. Ejection Fraction = 60-65%. The Echocardiology Report left ventricular wall motion is normal. Diastolic dysfunction, Grade II (pseudonormalization pattern). Left Atrium The left atrial size is normal. Right Atrium Right atrial size is normal. Right Ventricle The right ventricular systolic function is normal. Aortic Valve The aortic valve is trileaflet. Mitral Valve Mitral valve structure is normal. Tricuspid Valve Structurally normal tricuspid valve. There is trace tricuspid regurgitation. Estimated RVSP is mildly elevated at 38 mmHg. Pulmonic Valve The pulmonic valve is normal. Arteries The aortic root is normal in size. Venous The inferior vena cava is normal in size, and collapses normally with respiration. Effusion There is no pericardial effusion. MMode/2D Measurements & Calculations RVDd: 2.8 cm LVIDd: 4.5 cm FS: 39.3 % Ao root diam: 2.4 cm IVSd: 0.83 cm LVIDs: 2.7 cm EDV(Teich): 90.6 ml Ao root area: 4.7 cm2 LVPWd: 1.1 cm ESV(Teich): 27.2 ml LA dimension: 4.2 cm EF(Teich): 70.0 % asc Aorta Diam: 2.8 cm LVOT diam: 2.1 cm LVLd ap4: 7.9 cm EDV(MOD-sp2): 48.3 ml LVOT area: 3.3 cm2 EDV(MOD-sp4): 49.3 ml ESV(MOD-sp2): 17.1 ml LVLs ap4: 6.8 cm EF(MOD-sp2): 64.6 % ESV(MOD-sp4): 20.5 ml EF(MOD-sp4): 58.4 % SV(MOD-sp4): 28.8 ml TAPSE: 2.6 cm Ao Sinus of Valsalva: 2.3 cm Ao Sinotubular Junction: 2.1 cm IVC Diam: 2.0 cm RVIDd/LVIDd: 0.62 EF (MOD-bp): 60.9 % LA Vol Index: 29.3 ml/m2 Doppler Measurements & Calculations Echocardiology Report MV E max catrina: 113.0 cm/sec MV dec time: 0.21 sec Ao V2 max: 143.6 cm/sec LV V1 max P.6 mmHg MV A max catrina: 83.1 cm/sec Ao max P.2 mmHg LV V1 max: 94.7 cm/sec MV E/A: 1.4 Lat Peak E' Catrina: 7.9 cm/sec PADDY(V,D): 2.2 cm2 E/E' Lat: 14.2 Med Peak E' Catrina: 8.1 cm/sec E/E' Med: 14.0 TR max catrina: 294.1 cm/sec RAP systole: 3.0 mmHg AV VR: 0.66 TR max P.6 mmHg RVSP(TR): 37.6 mmHg FINAL REPORT Dictated: 04/11/2023 8:14 am Matt ROMANO MD Signed (Electronic Signature): 04/11/2023 9:17 am Signed by: Matt ROMANO MD Transcribed by: VINNIE Technologist: [place] [id number] Miscellaneous Notes* Telephone Encounter - Shauna Escalante APRN.CNP - 03/20/2023 4:51 PM EDT The following approved medication requests have been transmitted electronically. Requested Prescriptions Signed Prescriptions Disp Refills nebivolol (BYSTOLIC) 10 mg tablet 90 tablet 3 Sig: TAKE 2 TABLETS BY MOUTH IN THE MORNING AND 1 TABLET IN THE EVENING Authorizing Provider: MATILDE GODINEZ Ordering User: SHAUNA ESCALANTE APRN.DRYING OVEN TENDER * Telephone Encounter - Katharine White MA - 03/19/2023 1:48 PM EDT Received request for refill of the following medications: Requested Prescriptions Pending Prescriptions Disp Refills nebivolol (BYSTOLIC) 10 mg tablet [Pharmacy Med Name: Nebivolol HCl Oral Tablet 10 MG] 90 tablet 3 Sig: TAKE 2 TABLETS BY MOUTH IN THE MORNING AND 1 TABLET IN THE EVENING Patient requested a 90 day refill. Pharmacy verified and updated accordingly. Patient was last seen in cardiology office: 02/05/2023 Dr. Godinez. Upcoming appointment scheduled: 04/26/2023. Labs: Hemoglobin (g/dL) Date Value 01/10/2023 12.6 01/24/2022 13.4 Hematocrit (%) Date Value 01/10/2023 39.0 01/24/2022 39.3 WBC (k/uL) Date Value 01/10/2023 6.48 04/04/2021 7.40 Platelet Count (k/uL) Date Value 01/10/2023 206 04/04/2021 227 Creatinine Date Value Ref Range Status 01/10/2023 0.90 0.58 - 0.96 mg/dL Final 10/06/2022 0.77 0.58 - 0.96 mg/dL Final documented in this encounterMartin [facility]06-[facility]23 NoteHNO ID: [id number] Author: Matilde Godinez MD Service: ? Author Type: Physician Type: Progress Notes Filed: 02/05/2023 3:21 PM Note Text: SUBJECTIVE: Joy Hawthorne is a 56 year old female. Patient presents with: Cardiology Follow Up Joy Hawthorne was referred by Self HPI: The patient is a pleasant, 56-year-old female, with well-documented coronary artery disease, having undergone drug-eluting stent deployment to the right coronary artery in August 2013. Subsequent left heart catheterization, May 2015, revealed mild in-stent restenosis, which was treated medically. At fifth anniversary of nuclear stress testing, May 2020, there was no evidence for inducible ischemia or previous myocardial scarring, with preserved left and right ventricular size and systolic function and normal ejection fraction. The patient has been lost to follow-up for almost 2 years and presents today to reestablish. CARDIAC HISTORY: SYMPTOMS: Chest pain/discomfort: No, Palpitations:No, Arrhythmia: No Dyspnea: Yes: Dyspnea details: Moderate exertion, Dyspnea at rest: No, Nocturnal dyspnea: Yes Orthopnea: No, Diaphoresis: No, Dizziness: No, Syncope: No, Edema: No, Nocturia: Yes, Impaired exercise tolerance: Yes, Claudication:No CONDITIONS: Hypertension: Yes, Heart failure:No, [place] Heart Association Functional Classification: Class II, Atrial fibrillation:No, History of myocardial infarction/angina: Yes, History of CABG/PCI:Yes, Valvular heart disease: No, Cardiomyopathy: No, Aortic diseases: No, Peripheral vascular disease: No, History of cerebrovascular accident: No, History of pulmonary embolism No, History of DVT No. History of rheumatic fever: No, History of transient ischemic attacks: No, Congenital heart disease: No, Pericarditis: No, Pericardial Effusion: No CORONARY RISK FACTORS: Family history of coronary artery disease Yes: Family history CAD in a first degree relative father Premature onset: No, Tobacco use No, Sedentary lifestyle Yes, Hypertension Yes, Hyperlipidemia Yes, Diabetes mellitus No, Obesity Yes, Peripheral vascular disease No. HISTORIES: FAMILY HISTORY FAMILY HISTORY Problem Relation Age of Onset Colon Cancer Mother 53 Hypertension Mother Diabetes Mother Diabetes Father Coronary Artery Disease Father Multiple stents in early 60's, age 70 Hypertension Father Hypertension Brother Hypertension Brother Cancer Brother epithelioid of leg. Coronary Artery Disease Paternal Uncle Coronary Artery Disease Paternal Uncle Coronary Artery Disease Paternal Aunt PAST MEDICAL HISTORY PAST MEDICAL HISTORY Diagnosis Date Asthma dx'd 15 yrs ago- has not been on medication Atherosclerotic coronary vascular disease 05/20/2015 Lexiscan perfusion normal, EF 68%; Echo normal; Cath 05/2014 Irregularies wiith 50% rca in-stent stenosis. 09/2012 RCA CARRI X2 to prox vessel Colon polyp Cscope 05/29/14 w polyps, f/u 3 yrs. Diverticulitis Diverticulosis NARCISO (generalized anxiety disorder) HTN (hypertension) Hyperlipidemia Morbid obesity with BMI of 40.0-44.9, adult ([facility]) 08/2015 Wt. 235# BMI 41 Pneumonia Sleep apnea Vitamin D deficiency 04/09/2012 PAST SURGICAL HISTORY PAST SURGICAL HISTORY Procedure Laterality Date CARDIAC CATHETERIZATION HX -2012 stents x 2 COLONOSCOPY 05/29/14 - repeat 3 years ECHO 05/20/15 mildly dilated IVC LEFT HEART CATH 05/12/14 LEXISCAN STRESS TEST PANEL 05/20/15 NORMAL PART REMOVAL COLON W ANASTOMOSIS 2017 Sigmoidectomy REMOVAL OF OVARY/TUBE(S) 1994 Salpingo-oophorectomy TOTAL ABDOM HYSTERECTOMY 1989 Hysterectomy, DORENE SOCIAL HISTORY Social History Marital status: Spouse name: Years of education: Number of children: Social History Main Topics Smoking status: Never Smoker Smokeless status: Never Used Alcohol use: No Drug use: No Sexual activity: Not Currently Other Topics Concern Blood Transfusions No Caffeine Concern Yes Comment:3 cups per day 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 Concern No Stress Concern No Weight Concern Yes Special Diet Yes Comment:not frying, baked food only, portion control Exercise Yes Comment:joined the gym-meets with a horse trainer tomorrow Seat Belt Yes Self-Exams Yes Comment:monthly BSE 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 ALLERGIES ALLERGIES Allergen Reactions Bactrim [Sulfametho* Hives Neurontin [Gabapent* Other: See Comments Mouth sores REVIEW OF SYSTEMS: Constitutional: Fatigue: Yes, Weight loss: No, Weight gain: Yes, Fever: No, Chills: No Eyes: Blurred or Reduced Vision:No Ears: Hearing Loss:No Nose,Throat: Epistaxis:No, Bleeding gums:No Respiratory: Dyspnea:Yes, Cough:No, Hemoptysis:No, Wheezing:No, Pleuritic pain:No, Sleep Apnea:Yes, COPD:No, Asthma:Yes Gastrointestinal: Hematemesis:No, Blood in stool:No, Abdominal pain:No, Nausea and/or vomiting:No Genitourinary: Dysuria:No, Brad (more content not included)...[facility]06-26-2023 Nurse Note* Jana Laurent RN - 02/05/2023 3:17 PM EDT Railroad Operator present: Jana Laurent RN documented in this encounterMartin [facility] Hospital06-26-2023 Instructions* Patient Instructions* Matilde Godinez MD - 02/05/2023 3:16 PM EDT Refer to EP service: Evaluate dizzy spells/bradycardia documented in this encounterMartin [facility] Hospital06-26-2023 History of Present illness Narrative* Matilde Godinez MD - 02/05/2023 3:08 PM EDT SUBJECTIVE: Joy Hawthorne is a 56 year old female. Patient presents with: Cardiology Follow Up Joy Hawthorne was referred by Self HPI: The patient is a pleasant, 56-year-old female, with well-documented coronary artery disease, having undergone drug-eluting stent deployment to the right coronary artery in August 2013. Subsequent left heart catheterization, May 2015, revealed mild in-stent restenosis, which was treated medically. At fifth anniversary of nuclear stress testing, May 2020, there was no evidence for inducible ischemia or previous myocardial scarring, with preserved left and right ventricular size and systolicfunction and normal ejection fraction. The patient has been lost to follow-up for almost 2 years and presents today to reestablish. CARDIAC HISTORY: SYMPTOMS: Chest pain/discomfort: No, Palpitations:No, Arrhythmia: No Dyspnea: Yes: Dyspnea details: Moderate exertion, Dyspnea at rest: No, Nocturnal dyspnea: Yes Orthopnea: No, Diaphoresis: No, Dizziness: No,Syncope: No, Edema: No, Nocturia: Yes, Impaired exercise tolerance: Yes, Claudication:No CONDITIONS: Hypertension: Yes, Heart failure:No, [place] Heart Association Functional Classification: Class II, Atrial fibrillation:No, History of myocardial infarction/angina: Yes, History of CABG/PCI:Yes, Valvular heart disease: No, Cardiomyopathy: No, Aortic diseases: No, Peripheral vascular disease: No, Hi story of cerebrovascular accident: No, History of pulmonary embolism No, History of DVT No. Historyof rheumatic fever: No, History of transient ischemic attacks: No, Congenital heart disease: No, Pericarditis: No, Pericardial Effusion: No CORONARY RISK FACTORS: Family history of coronary artery disease Yes: Family history CAD in a first degree relative fatherPremature onset: No, Tobacco use No, Sedentary lifestyle Yes, Hypertension Yes, Hyperlipidemia Yes,Diabetes mellitus No, Obesity Yes, Peripheral vascular disease No. HISTORIES: FAMILY HISTORY FAMILY HISTORY Problem Relation Age of Onset Colon Cancer Mother 53 Hypertension Mother Diabetes Mother Diabetes Father Coronary Artery Disease Father Multiple stents in early 60's, age 70 Hypertension Father Hypertension Brother Hypertension Brother Cancer Brother epithelioid of leg. Coronary Artery Disease Paternal Uncle Coronary Artery Disease Paternal Uncle Coronary Artery Disease Paternal Aunt PAST MEDICAL HISTORY PAST MEDICAL HISTORY Diagnosis Date Asthma dx'd 15 yrs ago- has not been on medication Atherosclerotic coronary vascular disease 05/20/2015 Lexiscan perfusion normal, EF 68%; Echo normal; Cath 05/2014 Irregularies wiith 50% rca in-stent stenosis. 09/2012 RCA CARRI X2 to prox vessel Colon polyp Cscope 05/29/14 w polyps, f/u 3 yrs. Diverticulitis Diverticulosis NARCISO (generalized anxiety disorder) HTN (hypertension) Hyperlipidemia Morbid obesity with BMI of 40.0-44.9, adult ([facility]) 08/2015 Wt. 235# BMI 41 Pneumonia Sleep apnea Vitamin D deficiency 04/09/2012 PAST SURGICAL HISTORY PAST SURGICAL HISTORY Procedure Laterality Date CARDIAC CATHETERIZATION HX stents x 2 COLONOSCOPY 05/29/14 - repeat 3 years ECHO 05/20/15 mildly dilated IVC LEFT HEART CATH 05/12/14 LEXISCAN STRESS TEST PANEL 05/20/15 NORMAL PART REMOVAL COLON W ANASTOMOSIS 2017 Sigmoidectomy REMOVAL OF OVARY/TUBE(S) 1994 Salpingo-oophorectomy TOTAL ABDOM HYSTERECTOMY 1989 Hysterectomy, DORENE SOCIAL HISTORY Social History Marital status: Spouse name: Years of education: Number of children: Social History Main Topics Smoking status: Never Smoker Smokeless status: Never Used Alcohol use: No Drug use: No Sexual activity: Not Currently Other Topics Concern Blood Transfusions No Caffeine Concern Yes Comment:3 cups per day 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 Concern No Stress Concern No Weight Concern Yes Special Diet Yes Comment:not frying, baked food only, portion control Exercise Yes Comment:joined the gym-meets with a horse trainer tomorrow Seat Belt Yes Self-Exams Yes Comment:monthly BSE 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 ALLERGIES ALLERGIES Allergen Reactions Bactrim [Sulfametho* Hives Neurontin [Gabapent* Other: See Comments Mouth sores REVIEW OF SYSTEMS: Constitutional: Fatigue: Yes, Weight loss: No, Weight gain: Yes, Fever: No, Chills: No Eyes: Blurred or Reduced Vision:No Ears: Hearing Loss:No Nose,Throat: Epistaxis:No, Bleeding gums:No Respiratory: Dyspnea:Yes, Cough:No, Hemoptysis:No, Wheezing:No, Pleuritic pain:No, Sleep Apnea:Yes,COPD:No, Asthma:Yes Gastrointestinal: Hematemesis:No, Blood in stool:No, Abdominal pain:No, Nausea and/or vomiting:No Genitourinary: Dysuria:No, Hematuria:No, Renal insufficiency:No, Pregnancies:Yes, BPH:No, Erectile Dysfunction:No Hematologic: Anemia:No, Bruises easily:No, Bleeds easily:No History of Cancer: No Musculoskeletal: Muscle pain:No, Arthritis/Arthralgia:No Skin: Rash:No, Pruritus:No Neurologic: Headache:No, Dizziness:No, Seizures:No, Dementia:No Psychiatric: Anxiety:No, Depression:No, Over the past 2 weeks have you felt down, depressed or hopeless?:No, Over the past 2 weeks have you felt little interest or pleasure in doing things?:No Endocrine: Polyphagia:No, Polydipsia:No, Polyuria:No, Goiter:No, Hyper/hypothyroidism:No, Dyslipidemia:No Allergic, Immunology: Urticaria:No, Collagen vascular disease:No Other: The rest of the review of systems is unremarkable and negative or non-contributory. OBJECTIVE: VITALS: Blood pressure 120/82, pulse (!) 49, height 160 cm (5' 3 ), weight 94.8 kg (209 lb). PHYSICAL EXAMINATION: Unchanged from previous, see below. GENERAL APPEARANCE: Appears Healthy:Yes, Obese:Yes, Acute distress:No, Appearance consistent with age:Yes, Responds appropriately: Yes MENTAL STATUS: Alert:Yes, Cooperative:Yes, Pleasant:Yes, Affect: normal EYES: Conjunctiva/corneas normal:Yes, PERRL:Yes, Scleral icterus:No, Xanthelasma:No HEAD, NECK: Good oral hygiene:Yes, Oral mucosa normal:Yes, Jugular venous distention:No, Hepatojugular reflux:No, Thyromegaly:No, Carotid endarterectomy:No,Thyroidectomy :No RESPIRATORY:Chest movement symmetrical:Yes, Respiratory effort normal:Yes, Percussion of chest normal:Yes, Breath sounds normal:Yes, Crackles:No, Rales:No, Rhonchi:No, Wheezing:No, Pleural friction rub:No, Evidence of pacemaker/ICD:No, Median sternotomy scar:No, Sternal instability:No CARDIAC: Helix beat not localized, Cardiac thrill:No, Heart rate normal:Yes, Heart rhythm normal:Yes, S1 normal:Yes, S2 normal:Yes, S3 ausculated:No, S4 ausculated:No, Gallop ausculated:No, Heart murmur:No, Prosthetic valve click:No, Pericardial friction rub:No ABDOMINAL:Abdomen soft, non-tender. BS normal. No masses or organomegaly. and positive findings: Morbid obese VASCULAR/EXTREMITIES:Radial pulse normal:Yes, Carotid pulse normal:Yes, Carotid bruit:No, Abdominalaorta palpable:No, Abdominal aortic bruit:No, Femoral pulse normal:Yes, Femoral bruit:No, Dorsalis pedis pulse present:Yes, Posterior tibial pulse present:Yes, Popliteal pulse:Yes, Varicose veins:No,Leg edema:No, Pedal edema:No NEUROLOGIC: Grossly non-focal:Yes MUSCULOSKELETAL: Muscle strength normal:Yes, Joint range of motion normal:Yes SKIN: Clubbing:No, Cyanosis:No, Pallor:No, Diaphoresis:No, Stasis dermatitis/post phlebitic changes:No, Cutaneous xanthoma:No REVIEWED: ECG: YES As above Echo: YES as above Cath: YES As above Stress: YES As above PREVENTATIVE CARE: GENERAL: Non-smoker Discussed aspirin treatment. DIET/EXERCISE: Recommended weight loss. Discussed weight management stratagies. Recommended regular physical activity. Discussed low sodium diet. Discussed low cholesterol diet. PATIENT EDUCATION: Continue with medications as directed. Prescription risks and side effects discussed. Instructed on chest pain. ASSESSMENT/PLAN/RECOMMENDATIONS: The patient continues to do well at today's visit, after prolonged absence, with no suggestion of recurrent angina. After reviewing her current medication regimen, I see no reason to make any changes, however, the patient may require a decrease in her Bystolic dose or discontinuation, after evaluation with electrophysiology service. Risk factor modification, namely aggressive weight loss and maintenance, regimented diet and exercise, was strongly encouraged. The patient will follow with me in the office in 8 months and then in May 2024. Portions of the encounter note have been copied from a previous note, dated 05/18/2021, which has been updated where appropriate and reflects my current medical decision making from today. I spent a total of 35 minutes on the date of the service which included preparing to see the patient, [id number] patient care, completing clinical documentation, performing a medically appropriate examination, counseling and educating the patient/family/caregiver, and ordering medications, tests,or procedures. Essential hypertension Atherosclerosis of [place] coronary artery of [place] heart without angina pectoris Controlled type 2 diabetes mellitus without complication, without long-term current use of insulin (hcc) Presence of drug coated stent in right coronary artery (primary encounter diagnosis) Obesity, class ii, bmi [id number] [id number] Matilde Godinez MD documented in this encounterMartin [facility]06-06-2023 Miscellaneous Notes* Telephone Encounter - Inez Barton APRN.CNP - 01/16/2023 7:38 AM EDT patient has not been seen since 2020 I sent a refill for one month supply if they do not show up for follow up then primary care will have to refill for the future thank you Inez Barton APRN.DEEPAK The following approved medication requests have been transmitted electronically. Requested Prescriptions Signed Prescriptions Disp Refills nebivolol (BYSTOLIC) 10 mg tablet 90 tablet 0 Sig: TAKE 2 TABLETS (20 MG) IN THE MORNING AND 1 TABLET (10 MG) IN THE EVENING Authorizing Provider: MATILDE GODINEZ Ordering User: INEZ BARTON APRN.CNP * Telephone Encounter - Katharine White MA - 01/15/2023 11:26 AM EDT Received request for refill of the following medications: Requested Prescriptions Pending Prescriptions Disp Refills nebivolol (BYSTOLIC) 10 mg tablet 270 tablet 3 Sig: TAKE 2 TABLETS (20 MG) IN THE MORNING AND 1 TABLET (10 MG) IN THE EVENING Patient requested a 90 day refill. Pharmacy verified and updated accordingly. Patient was last seen in cardiology office: 05/18/2021 Dr. Godinez. Upcoming appointment scheduled: 02/05/2023. Labs: Hemoglobin (g/dL) Date Value 01/10/2023 12.6 01/24/2022 13.4 Hematocrit (%) Date Value 01/10/2023 39.0 01/24/2022 39.3 WBC (k/uL) Date Value 01/10/2023 6.48 04/04/2021 7.40 Platelet Count (k/uL) Date Value 01/10/2023 206 04/04/2021 227 Creatinine Date Value Ref Range Status 01/10/2023 0.90 0.58 - 0.96 mg/dL Final 10/06/2022 0.77 0.58 - 0.96 mg/dL Final documented in this encounterMartin [facility] Hospital06-01-2023 Miscellaneous Notes* Telephone Encounter - Sadia Naranjo - 01/11/2023 3:56 PM EDT Spoke with patient informed patient soonest gastro appointment was in April, provided phone number to call [facility] gastro . * Telephone Encounter - Jairon Cowan APRN.CNP - 01/11/2023 3:29 PM EDT Schedule GI * Telephone Encounter - Karissa Guadalupe MA - 01/11/2023 9:20 AM EDT Called lab, order has been added on. Will postpone for results. * Telephone Encounter - Jairon Cowan APRN.CNP - 01/11/2023 7:27 AM EDT Call lab to add a lipase to her blood work documented in this encounterMartin Memorial Hospital05-31-2023 NoteHNO ID: [id number] Author: RT Alicia(R) Service: ? Author Type: Beer Maker Type: Progress Notes Filed: 01/10/2023 11:31 AM Note Text: Radiology Service Progress Note PATIENT NAME: Joy Ortiz DATE OF SERVICE: January 10, 2023 TIME: 11:31 AM PATIENT IDENTITY VERIFICATION COMPLETED USING TWO (2) IDENTIFIERS: Name and Date of confirmed by patient verbally. FALL SCREENING: Has the patient had 2 falls in the last year or 1 fall with injury or currently using an Ambulatory Assistive Device (Walker, Cane, Wheelchair, Crutches, etc.)? No PATIENT GENDER DATA: Female. status: : No status: N/A PATIENT RELEVANT IMPLANT DATA REVIEWED: Not Applicable RADIOLOGY DEPARTMENT: Ultrasound PERIPHERAL IV DATA: Not applicable SIGNED BY: RT Alicia(R) January 10, 2023 11:31 [facility]05-31-2023 NoteHNO ID: [id number] Author: Jairon Cowan APRN.DEEPAK Service: ? Author Type: Nurse Practitioner Type: Progress Notes Filed: 01/10/2023 12:13 PM Note Text: Subjective HPI Joy Ortiz is a 57 year old female who presents with right flank pain x 1 week. Notes pain to the flank and wraps around to the front at belly button. No fever, chills, nausea/vomiting. Gall bladder was removed, no hx of kidney stones. No blood in urine/stool, normal BM yesterday. No pain with urination/frequency. Did not injure with a fall or do any vigorous work last week. Heating pad/ice helps, Tylenol not helping. Review of Systems Constitutional: Negative for chills and fever. HENT: Negative. Respiratory: Negative for cough, sputum production and shortness of breath. Cardiovascular: Negative for chest pain and palpitations. Gastrointestinal: Negative for blood in stool, constipation, diarrhea, heartburn, nausea and vomiting. Genitourinary: Positive for flank pain. Negative for dysuria, frequency, hematuria and urgency. BP 118/70 Pulse 63 Temp 36.6 ?C (97.9 ?F) Wt 93.4 kg (205 lb 12.8 oz) SpO2 97% BMI 36.46 kg/m? Objective Physical Exam Constitutional: Appearance: Normal appearance. Cardiovascular: Rate and Rhythm: Normal rate and regular rhythm. Pulmonary: Effort: Pulmonary effort is normal. Breath sounds: Normal breath sounds. No wheezing, rhonchi or rales. Abdominal: General: Bowel sounds are normal. There is no distension. Palpations: Abdomen is soft. Tenderness: There is abdominal tenderness in the right upper quadrant. There is guarding. There is no rebound. Negative signs include Jackson's sign and McBurney's sign. Neurological: Mental Status: She is alert. ASSESSMENT/PLAN: 1. Right flank pain - ICD9: 789.09, ICD10: R10.9 - Urine neg for blood, will check labs of CBC with Diff, CMP, and Urine analysis - Work up with RUQ ultrasound - continue ice/heat/Tylenol PRN - COMP METABOLIC PANEL - URINALYSIS, DIPSTICK ONLY - URINE CULTURE - CBC + DIFF - US ABD RIGHT UPPER QUADRANT If not findings, may need CT. To ER if severe. Jairon Cowan APRN.[facility]05-31-2023 History of Present illness Narrative* Jairon Cowan APRN.[facility] - 01/10/2023 10:48 AM EDT Subjective HPI Joy Ortiz is a 57 year old female who presents with right flank pain x 1 week. Notes pain to the flank and wraps around to the front at belly button. No fever, chills, nausea/vomiting. Gall bladder was removed, no hx of kidney stones. No blood in urine/stool, normal BM yesterday. No pain with ur ination/frequency. Did not injure with a fall or do any vigorous work last week. Heating pad/ice helps, Tylenol not helping. Review of Systems Constitutional: Negative for chills and fever. HENT: Negative. Respiratory: Negative for cough, sputum production and shortness of breath. Cardiovascular: Negative for chest pain and palpitations. Gastrointestinal: Negative for blood in stool, constipation, diarrhea, heartburn, nausea and vomiting. Genitourinary: Positive for flank pain. Negative for dysuria, frequency, hematuria and urgency. BP 118/70 Pulse 63 Temp 36.6 C (97.9 F) Wt 93.4 kg (205 lb 12.8 oz) SpO2 97% BMI 36.46 kg/m Objective Physical Exam Constitutional: Appearance: Normal appearance. Cardiovascular: Rate and Rhythm: Normal rate and regular rhythm. Pulmonary: Effort: Pulmonary effort is normal. Breath sounds: Normal breath sounds. No wheezing, rhonchi or rales. Abdominal: General: Bowel sounds are normal. There is no distension. Palpations: Abdomen is soft. Tenderness: There is abdominal tenderness in the right upper quadrant. There is guarding. There is no rebound. Negative signs include Jackson's sign and McBurney's sign. Neurological: Mental Status: She is alert. ASSESSMENT/PLAN: 1. Right flank pain - ICD9: 789.09, ICD10: R10.9 - Urine neg for blood, will check labs of CBC with Diff, CMP, and Urine analysis - Work up with RUQ ultrasound - continue ice/heat/Tylenol PRN - COMP METABOLIC PANEL - URINALYSIS, DIPSTICK ONLY - URINE CULTURE - CBC + DIFF - US ABD RIGHT UPPER QUADRANT If not findings, may need CT. To ER if severe. Jairon Cowan APRN.DRYING OVEN TENDER documented in this encounter[facility] NotePatient Outreach (INTMMN) JOY ORTIZ ([id number]) 1965 F Date Time Provider Department 12/20/22 MACK URIBE During your visit today, we recorded the following information about you: Allergies As of Date: 12/20/2022 Noted Allergy Reaction NITROFURANTOIN MONOHYD/M-CRYST 03/29/2022 11 - Vomiting 12 - Shortness of Breath 10 - Anaphylaxis 3 - Cough ALLOPURINOL 11/21/2017 2 - Rash Comments: patient reported in Home Inventory S[pecialists message noted on November 21, 2017 BACTRIM (SULFAMETHOXAZOLE) 12/05/2011 4 - Hives NEURONTIN (GABAPENTIN) 03/03/2013 14 - Other: See Comments Comments: Mouth sores Date Reviewed: 11/09/2022 Reviewed by: Emi Craig MA - Fully Assessed Visit Diagnosis:Encounter for screening mammogram for breast cancer [Z12.31] Order(s):[facility] SCREENING [[id number]] Order #: [id number] FUTURE Prescriptions as of 12/25/2022 - ergocalciferol 50,000 unit capsule (VITAMIN D2, DRISDOL) Take 1 capsule by mouth two times a week. (FOR EXAMPLE ONE CAPSULE ON SUNDAY AND ONE ON SUNDAY) FOR A TOTAL OF 4 WEEKS, WITH A MEAL - pantoprazole DR (PROTONIX) 40 mg tablet Take 1 tablet by mouth once daily. - MEDICATION, NON-DATABASE Take by mouth twice daily. Tumeric with black pepper - Bifidobacterium infantis (ALIGN ORAL) Take by mouth once daily. - nebivolol (BYSTOLIC) 10 mg tablet TAKE 2 TABLETS (20 MG) IN THE MORNING AND 1 TABLET (10 MG) IN THE EVENING - rosuvastatin (CRESTOR) 40 mg tablet Take 1 tablet by mouth daily at bedtime. - losartan (COZAAR) 25 mg tablet Take 1 tablet by mouth once daily. - nitroglycerin sublingual (NITROQUICK) 0.4 mg SL tablet DISSOLVE 1 TABLET UNDER THE TONGUE NEEDED FOR CHEST PAIN - MITIGARE 0.6 mg capsule TAKE 1 CAPSULE TWICE A DAY (TAKE 1 CAPSULE ONCE DAILY AND IF NEEDED CAN INCREASE TO TWICE A DAY INSTRUCTED) - aspirin, enteric coated (ECOTRIN LOW STRENGTH) 81 mg EC tablet Take 1 tablet by mouth once daily. Meds Comments as of 10/20/2022: Problem List As Of Date 12/20/2022 Noted Resolved Multiple joint pain [M25.50] 03/12/2012 Fatigue [R53.83] 03/12/2012 CTS (carpal tunnel syndrome) [G56.00] 03/12/2012 Epicondylitis [TGM4264] 03/12/2012 Vitamin D deficiency [E55.9] 04/09/2012 Elevated C-reactive protein (CRP) [R79.82] 04/09/2012 Chest pain [R07.9] 08/26/2012 09/14/2015 HTN (hypertension) [I10] 08/26/2012 HLD (hyperlipidemia) [E78.5] 08/26/2012 Colon polyp [K63.5] 08/20/2018 Primary osteoarthritis of both knees [M17.0] 07/30/2015 S/P PTCA (percutaneous transluminal coronary an*08/17/2015 Atherosclerotic coronary vascular disease [I25.* Morbid obesity with BMI of 40.0-44.9, adult (HC* 08/20/2018 NARCISO (generalized anxiety disorder) [F41.1] Chronic thumb pain [M79.646, G89.29] 11/08/2015 Chest pain [R07.9] 03/12/2016 Sigmoid diverticulitis [K57.32] 01/05/2017 08/20/2018 Diabetes mellitus type 2, controlled, without c*01/05/2017 Colitis [K52.9] 01/05/2017 01/06/2017 Diverticulitis [K57.92] 02/26/2017 08/20/2018 Hypokalemia [E87.6] 03/28/2017 03/29/2017 Bradycardia [R00.1] 03/28/2017 08/20/2018 Arthralgia [M25.50] 06/18/2017 Presence of drug coated stent in right coronary*11/05/2017 Obesity, Class II, BMI 35-39.9 E66.9 [E66.9] 11/06/2017 Gastroesophageal reflux disease without esophag*08/20/2018 Idiopathic chronic gout of right foot without t*08/20/2018 Suspected COVID-19 virus infection [Z20.822] 03/04/2020 09/24/2020 History of asthma [Z87.09] 03/04/2020 Left upper quadrant pain [R10.12] 06/13/2021 Encounter Status:Closed by EPIC, PRODUSER on 12/25/22[facility] 11-09-2022 NoteHNO ID: [id number] Author: Sravan Marroquin, DO Service: ? Author Type: Physician Type: Progress Notes Filed: 11/09/2022 3:48 PM Note Text: Joy Ortiz is here today at request of Alisson Macias specifically for consultation of my opinion in regards to the chief complaint listed below. Correspondence will be shared today via the [facility] electronic health record or through regular mail, where applicable. CHIEF COMPLAINT: Joy Ortiz is a 57 year old female who presents today for new evaluation ofright hand pain and left hand pain. HISTORY OF PRESENT ILLNESS: PAIN EVALUATION 11/06/2022201511/09/2022 1448 Pain Level: 6 5 Pain Location: Heel-Right Hand-Left Description: Aching;Numbness;Radiating;Sharp;Stiffness;Throbbing;Tightness Aching;Tightness Duration Amount of Time: -- 2 Duration Units: Days Weeks Frequency: Continuous Continuous Intervention/Comfort measure: Medication;Distractions;Heat;Support surface;Other: See comment Splinting;Heat Comments: Its both hands but it only gives me option to pick 1 -- Injury: No Mechanical Symptoms: No, patient denies locking, popping, or catching She states taht the pain is diffuse. She notes that this problem exhibits aggravating factors of gripping, grabbing. She notes that this problem exhibits alleviating factors of Rest and avoidance of aggravating activities. no associated symptoms of numbness in the fingers Night Pain: No PHYSICAL EXAMINATION: HANDANDWRIST EXAM Inspection: No joint deformities or swelling noted on examination today Range of Motion: Finger: normal ROM of all joints of all fingers of both hands Wrist Flexion: normal ROM when compared to the contralateral side Wist Extension: normal ROM when compared to the contralateral side TTP diffusely over the joints of the hands IMAGING: Previous imaging performed , and available in the Epic health record, showed chronic degenerative changes. CLINICAL IMPRESSION / ASSESSMENT: (M19.041, M19.042) Primary osteoarthritis of both hands (primary encounter diagnosis) RECOMMENDATION / PLAN: Prescription topical medication written today. We discussed appropriate use, administration and side effects in detail. Discussed with her that options are limited from an orthopedic standpoint due to diffuse pain in the hands Recommend keeping follow-up with rheum Procedures Verbal health education was given to patient. Patient verbalizes understanding and agrees with the treatment plan as detailed above. Sravan Marroquin, [facility]03-30-2023 History of Present illness Narrative* Sravan Marroquin, DO - 11/09/2022 2:54 PM EDT Images from the original note were not included. Joy Ortiz is here today at request of Alisson Macias specifically for consultation of my opinionin regards to the chief complaint listed below. Correspondence will be shared today via the [facility] electronic health record or through regular mail, where applicable. CHIEF COMPLAINT: Joy Ortiz is a 57 year old female who presents today for new evaluation ofright hand pain and left hand pain. HISTORY OF PRESENT ILLNESS: PAIN EVALUATION 11/06/2022 2016 11/09/2022 1448 Pain Level: 6 5 Pain Location: Heel-Right Hand-Left Description: Aching;Numbness;Radiating;Sharp;Stiffness;Throbbing;Tightness Aching;Tightness Duration Amount of Time: -- 2 Duration Units: Days Weeks Frequency: Continuous Continuous Intervention/Comfort measure: Medication;Distractions;Heat;Support surface;Other: See comment Splinting;Heat Comments: Its both hands but it only gives me option to pick 1 -- Injury: No Mechanical Symptoms: No, patient denies locking, popping, or catching She states taht the pain is diffuse. She notes that this problem exhibits aggravating factors of gripping, grabbing. She notes that this problem exhibits alleviating factors of Rest and avoidance of aggravating activities. no associated symptoms of numbness in the fingers Night Pain: No PHYSICAL EXAMINATION: HAND&WRIST EXAM Inspection: No joint deformities or swelling noted on examination today Range of Motion: Finger: normal ROM of all joints of all fingers of both hands Wrist Flexion: normal ROM when compared to the contralateral side Wist Extension: normal ROM when compared to the contralateral side TTP diffusely over the joints of the hands IMAGING: Previous imaging performed , and available in the [facility] health record, showed chronic degenerative changes. CLINICAL IMPRESSION / ASSESSMENT: (M19.041, M19.042) Primary osteoarthritis of both hands (primary encounter diagnosis) RECOMMENDATION / PLAN: Prescription topical medication written today. We discussed appropriate use, administration and side effects in detail. Discussed with her that options are limited from an orthopedic standpoint due to diffuse pain in the hands Recommend keeping follow-up with rheum Procedures Verbal health education was given to patient. Patient verbalizes understanding and agrees with the treatment plan as detailed above. Sravan Marroquin DO documented in this encounterMartin [facility] Hospital03-10-2023 Miscellaneous Notes* Telephone Encounter - Lacey Shelton MA - 10/20/2022 9:21 AM EST Left message for patient to call office regarding below. sent through Home Inventory S[pecialists as well * Telephone Encounter - Alisson Macias APRN.DEEPAK - 10/19/2022 9:51 PM EST Please call patient Slightly elevated alk phos will recheck in November with vit d recheck DS DNA was negative KAYLA only slightly positive More important the specific antibodies were normal An KAYLA itself is a non-specific finding, especially if without clinical correlation. A positive ANAresult may occur in healthy individuals, those with FH of auto-immune diseases or associated with avariety of diseases, auto-immune diseases-rheumatologic and non-rheumatologic (such as dermatologicdiseases, endocrine, GI, neuro, inflammatory, medication induced, infections, neoplasms and other). Will continue to monitor in future documented in this encounterMartin [facility] Hospital02-28-2023 Miscellaneous Notes* Telephone Encounter - Delma Saul RN - 10/10/2022 8:16 AM EST -Pt verified by Name and . -Pt Called back and message given as stated below. Pt verbalized understanding. -No further questions at this time. -call transferred to powder cutting operator with confirmation - appointment noted ORTH 11/09/22. * Telephone Encounter - Lacey Shelton MA - 10/09/2022 2:14 PM EST Left message for patient to call office regarding below. * Telephone Encounter - Alisson Macias APRN.DEEPAK - 10/09/2022 1:19 PM EST Yes may see hand ortho Please assist with scheduling May try asper creme or salon pas otc patches Ice or heat * Telephone Encounter - Delma Saul RN - 10/09/2022 12:43 PM EST -Pt verified by Name and . -Pt Called back and message given as stated below. Pt verbalized understanding. -No further questions at this time. -pt states hands and wrists bother her the most if ORTHO consult would be appropriate she is interested. * Telephone Encounter - Lacey Shelton MA - 10/09/2022 9:05 AM EST Left message for patient to call office regarding below. * Telephone Encounter - Alisson Macias APRN.DRYING OVEN TENDER - 10/08/2022 10:50 PM EST Please call patient Labs show . No inflammation Vitamin D deficiency may lead to increased bone and body pains, fatigue, increased risk for bone loss and fractures among other health problems. It is very important to correct the deficiency. -I recommend replacement therapy with Vitamin D 50,000 and sent a prescription to your pharmacy. Please start with this med as soon as possible. Please take 1 capsule twice a week for 1 months. Always take vitamin D with a meal that contains healthy plant based fat, this is to help it get absorbed (such as nuts, seeds, avocado). I placed orders to recheck the levels in 2 months, this is to make sure that the deficiency has been corrected. After you have completed this prescription, it is recommended to continue on maintenance therapy tokeep the Vit D from dropping again. I recommend taking vitamin D3: 2000 international units daily over the counter, with a meal. The watermaster dose will depend on your next blood levels. Please let me know if you would like to see ortho for osteoarthritis of knee or ankle Waiting for dsdna and kayla results 10/06/22 Xr left knee IMPRESSION: Left knee osteoarthritis with minimal progression since the prior exam Xr ankle left IMPRESSION: 1. No acute osseous abnormality 2. Enlargement of the plantar calcaneal enthesophyte since the prior exam Xr hand bilateral IMPRESSION: 1. Bilateral hand and wrist osteoarthritis slightly progressed at the left wrist since the prior exam. Component Latest Ref Rng & Units 10/06/2022 WBC 3.70 - 11.00 k/uL 7.85 RBC 3.90 - 5.20 m/uL 4.57 Hemoglobin 11.5 - 15.5 g/dL 14.0 Hematocrit 36.0 - 46.0 % 42.8 MCV 80.0 - 100.0 fL 93.7 MCH 26.0 - 34.0 pg 30.6 MCHC 30.5 - 36.0 g/dL 32.7 RDW-CV 11.5 - 15.0 % 12.3 Platelet Count 150 - 400 k/uL 252 MPV 9.0 - 12.7 fL 10.5 Neut% % 45.0 Abs Neut (ANC) 1.45 - 7.50 k/uL 3.54 Lymph% % 40.0 Abs Lymph 1.00 - 4.00 k/uL 3.14 [place]% % 8.3 Abs [place] <0.87 k/uL 0.65 Eosin% % 5.0 Abs Eosin <0.46 k/uL 0.39 Baso% % 1.4 Abs Baso <0.11 k/uL 0.11 (H) Immature Gran % % 0.3 IMMATURE GRANS (ABS) <0.10 k/uL <0.03 NRBC /100 WBC 0.0 Absolute nRBC <0.01 k/uL <0.01 DTYPE Auto Protein, Total 6.3 - 8.0 g/dL 7.4 Albumin 3.9 - 4.9 g/dL 4.4 Calcium 8.5 - 10.2 mg/dL 9.8 Bilirubin, Total 0.2 - 1.3 mg/dL 0.3 Alkaline Phosphatase 34 - 123 U/L 126 (H) AST 13 - 35 U/L 29 ALT 7 - 38 U/L 27 Glucose 74 - 99 mg/dL 89 BUN 7 - 21 mg/dL 14 Creatinine 0.58 - 0.96 mg/dL 0.77 Sodium 136 - 144 mmol/L 142 Potassium 3.7 - 5.1 mmol/L 3.9 Chloride 97 - 105 mmol/L 105 CO2 22 - 30 mmol/L 26 Anion Gap 9 - 18 mmol/L 11 eGFR >=60 mL/min/1.73m 90 Vitamin D 25 Hydroxy 31.0 - 80.0 ng/mL 24.9 (L) WSR 0 - 20 mm/hr 2 CRP <0.9 mg/dL <0.3 Uric Acid 2.5 - 6.6 mg/dL 4.2 documented in this encounterMartin Memorial Hospital02-24-2023 History of Present illness Narrative* Xavier Arevalo, RT(R) - 10/06/2022 2:25 PM EST Radiology Service Progress Note PATIENT NAME: Joy Ortiz DATE OF SERVICE: October 06, 2022 TIME: 2:25 PM PATIENT IDENTITY VERIFICATION COMPLETED USING TWO (2) IDENTIFIERS: Name and Date of confirmedby patient verbally. FALL SCREENING: Has the patient had 2 falls in the last year or 1 fall with injury or currently using an Ambulatory Assistive Device (Walker, Cane, Wheelchair, Crutches, etc.)? No PATIENT GENDER DATA: Female. status: : No status: NO. PATIENT RELEVANT IMPLANT DATA REVIEWED: Not Applicable RADIOLOGY DEPARTMENT: General X-ray: Exam(s) Completed: Lower Extremity X- Ray(s): Knee, AP / Lat / Tunne / Merchant Left and Wt. Bearing and Ankle, Left and Wt. Bearing Upper Extremity X-Ray(s): Hand, bilateral PERIPHERAL IV DATA: Not applicable SIGNED BY: RT Viky(R) October 06, 2022 2:25 PM documented in this encounterMartin Memorial Hospital02-24-2023 Instructions* Patient Instructions* Alisson Macias APRN.DRYING OVEN TENDER - 10/06/2022 1:42 PM EST -PLEASE NOTE THAT WE REVIEW ALL YOUR TEST RESULTS AT YOUR NEXT FOLLOW UP VISIT WITH YOU. IF ANY ABNORMAL LAB REQUIRES SOONER ATTENTION, WE WILL CONTACT YOU. -If you have signed up on [employer], we will release your test results through [facility]. I wish you the best of health and wellness. Please take care and stay safe and healthy. Consume a healthy diet, stay well hydrated, sleep well, be happy, improve stress (include meditation), exercise regularly. Spend some time in nature, around trees and lee (forest bathing) and enjoy half an hour daily in the sun when possible (and benefit from its natural near infrared light, also your skin will be able to produce natural vitamin D). These have been shown to help with wellbeing, promoting a healthy immune system and healing. May try asper creme or salon pas otc patches Ice or heat -Please continue on the Colchicine: 1 tablet once a day colchicine can be taken twice daily for any concerned of gout attack This can help prevent and treat gout attack Will follow the uric acid blood test - Vitamin D: 2000 International Units daily with dinner - Maintaining good vitamin D blood levels is important for bone health and overall health. Please see additional information on vitamin D below. A vitamin D blood test, called vitamin D 25-hydroxy (OH) is obtained to assess vitamin D level. If the vitamin D is low, you will need to take a vitamin D supplement. If you are already on a vitamin D supplement, then the dose will need to be adjusted. Also you multivitamin may contain vitamin D. Vitamin D is a fat soluble vitamin that requires it be taken with good fat to be absorbed. Examplesof healthy fat include nuts, seeds, avocados, olives and for the most part the meal of the day. Spending up to 30 minutes in the sun during Summer and late Spring can provide natural vitamin D tothe uncovered skin (arms, legs) - We have discussed Turmeric, over the counter supplement This has been reported to help with osteoarthroses and inflammatory arthropathy Turmeric is available in pill form or liquid and can be taken as 500 mg to 1000 mg twice daily withmeals. Make sure there is black pepper in your meal when you take the turmeric so that it works better The black pepper could be present in the pill or can be with your meal. Those who have gallbladder or gall stone disease or on blood thinners or , should not take Turmeric. Turmeric is a spice that is used in many culinary cuisines, such as [employer]. You can consume it as a spice, instead of a supplement. The dose for the spice would be 1/4 to 1/2 teaspoon twice daily with a meal. This is usually mixed with food or a nut butter or blended in a smoothie to drink- with a plant based milk and half a banana. A large randomized controlled study, the VITAL trial, showed that the consumption of vitamin D and omega-3 supplements can lead to decreased risk of auto-immune disease, by 30% or more, especially ifthe vitamin D blood level improves to the 40's range. Citation of the vitamin D study: Supriya J, Porfirio NR, Vince EK, Magy S, Marcus J, Aretha V, Sandra G, Chente HIRSCH, Jim JE, Pool KH. Vitamin D and marine omega 3 fatty acid supplementation andincident autoimmune disease: VITAL randomized controlled trial. BMJ. 2021Sep 07;376:u547156. doi: 1 0.1136/nac-6365-287895. PMID: [id number]; PMCID: [id number]. In this study they used: 1) Vitamin D 2000 international units once daily with meals. You may need more if your blood level of vitamin D is not up to the 40 range 2) Holland-3 1000 mg once daily I recommend plant based omega-3 (over fish oil), which is algal oil. -Vitamin D and Holland-3 have been reported to help with inflammation and auto- immune disease and Turmeric with inflammation. You can also take Turmeric 500 to 1000 mg twice daily with meals (with black pepper) This has been reported to help with osteoarthroses and inflammatory arthropathy Turmeric is available in pill form or liquid and can be taken up to 2000 mg twice daily. Make sure there is black pepper in your meal when you take the turmeric so that it works better The black pepper could be present in the pill or can be with your meal. Those who have gallbladder or gall stone disease or on blood thinners or , cannot take it. - Your calcium can be sufficient in your diet Healthy food that are rich in calcium include: nuts, seeds, legumes/beans, peas, dark green leafy vegetables, plant based milk Additional calcium rich foods listed below - Soaking Almonds overnight in the fridge with drinking water, can help with softening the almonds and improved absorption of the almonds. See additional information below on calcium. - I recommend following a healthy lifestyle. You can find additional information below. I recommend this to all my patients, as I have seen convincing scientific evidence, and seen the results in my practice, of the benefits of this healthy lifestyle to overall health and wellness. I hope you will find this beneficial as well. A whole plant based diet and healthy lifestyle have been reported to be optimal for health in general, anti-inflammatory diet, prevention of common chronic diseases, healthy weight management, memoryand brain healthy, bone health. Recommendations for healthy lifestyle include: Healthy nutritious diet, anti-inflammatory diet, appropriate exercise, good sleep hygiene, stress management, supplementing vital deficiencies and maintaining healthy weight. with BMI that does not exceed 25 to 26 . 5 points to remember to improve your health and continue on a healthy path: 1- Optimal nutritious food, such as a Whole Plant Based diet You can watch the movie that features the Whole Plant Based diet, Gilchrist over knives (see video online and visit website). Another movie that was recently released is: Eating You Alive (you can find it at [employer]) and The Game Changers movie Dr. Huang Rivero is a [facility] physician who is an expert in Whole Plant based diet. His website is Buffer. His research highlights the benefits of the Whole food plant based diet in reversing and preventing heart disease. Mrs. Rivero (his ) has a cookbook with many recipes on whole plant based food: The Prevent and Reverse Heart Disease cookbook. You can also consider reading his son, Gian Rivero's book: The Engine 2 cookbook Gian is a retired meat stringer who has helped many people get healthier by following the whole food plantbased diet. Dr. Madan Chang, has a website and free lala to help get started on a whole plant based diet, at www.[employer].org and you can log on for free for his 21-Day Kickstart with meals and recipes to follow for21 days. There is also a free lala for that. He has multiple free videos and YouTube, for example: ht tps://youtu.be/hrrCffgN4v9 , https://youtu.be/JuRJBtiil0n He has written multiple books, including L8 SmartLight for the Brain, The Cheese Trap, Dr. Madan Chang's Program for Reversing Diabetes, Your Body in Balance Dr. Lennox Peck has shown the benefit of a starch based whole food plant based diet to his Rheumatoid Arthritis patients, as well as patient with diabetes II, hypertension, obesity, multiple sclerosis, heart disease, acne, and other, his website: www.endyEasy Social Shoptisha.Optovue Dr. Kayley Monahan is a renowned geology scientist, who has studied and researched the benefits of the Whole plant based diet. He has also researched the adverse effects of animal proteins on health. He presents many of his research findings in his book The [place] study. Dr. Arnie Blanchard has completed many research trials proving the reversal of diseases, such as heart disease and early prostate cancer, with healthy lifestyle and the Whole Plant based diet. Dr. Arnie Blanchard website is: www.domoLiftopia.Optovue His new book: Undo It, has evidence based information and guide to following this healthy lifestyle. Dr. Genaro Mccarty has dedicated a website and additional time to reviewing all food related articles and research and presents them in his power point presentation and on his website at: nutritionfacts.org which is all free. Dr. Mccarty has multiple free videos and YouTube, for example https://youtu.be/aSgNkhgVtks and https://youtu.be/lXXXygDRyBU. He has written multiple books including: How Not To and How Not To Diet He is now working on his next book: How Not To Age Dr. Floresita León (from the [facility]), has articles on the following website: Plug.dj.Optovue Also, you could find additional information on practical to follow recipes by reading or watching online and YouTube such as: Chef WARD, Cooking With Plants, The Vegan Corner (recipes from an Mongolian Refueling Ramp Attendant), The Whole Foods Plant Based Cooking Show and visiting the provided websites for additional information on the whole plant based benefit and cooking recipes. You can also consider watching the vlogs of some of the plant based Athletes such as Stef Yan, Nii Estrada on Aditive. Dr. Sarah Navas (a psychiatrist who suffered with lupus) has helped reverse her Systemic Lupus Erythematosus and helps many patients with their auto-immune diseases, based on her recommendations of the whole food plant based diet and the green smoothies. She has a facebook and website, and on youtube her channel is: Goodbye Lupus Some people have adverse effect or intolerance to gluten. Certain patients with auto-immune disease, including auto-immune thyroid disease, need to avoid gluten. If you suspect you are gluten sensitive or intolerant, consider gluten free diet. Gluten could leadto increased inflammation in the bowels and body in certain patients. Not all your food has to be organ if you cannot afford or find them. Consider organic and non-GMO products when shopping for your food, when possible. GMO are genetically modified food that may have adverse impact on our health. If you are unable to purchase organic of non-GMO, you can wash your produce with white vinegar or soak in baking soda and water (see details from Dr. Osorio's website nutritionfacts.org) and rinse well with water. 2- Regular Exercise, such as beginner yoga, ke chi, stretching, cardio, gradual strengthening, pool therapy, physical therapy Come As You Are: YOGA - Gentle Yoga Anyone Can Do Anywhere [email or web address] Also on youtube: yoga with Karyna 3- Good Sleep (poor sleep impacts everything, recommended sleep is 7.5 to 8 hrs. a night). Certain people need less or more sleep. Meditation and relaxation techniques have shown to help with improving sleep. 4- Stress management, staying positive, be happy, laugh often (it is a great medicine) Find time to relax and meditate if possible. Following steps 1-3 will help with this as well. In psychiatric disorders, it is important to follow with a professional on the optimal management of depression, anxiety or psychiatric illness 5- Supplements Supplementing necessary vitamins and minerals, correcting any deficiencies, i.e. Vitamin D, B12, omega-3 fatty acids etc... Go natural when possible -Important notice: If you are following a Whole plant based diet, it is recommended to take [id number], sublingual, dissolve under the tongue, take once daily. Vitamin B12 is available over the counter, dose could be 2500 mcg, and can be taken once a week, and if your blood levels are low, you mayneed to take it once daily or a higher dose. Raw: Garlic, Cilantro, [place] nuts, Pumpkin seeds, Truchas seeds and Flax seed powder have been reported to help with certain metal detoxification such as mercury. [place]-3 plant based rich foods are good anti-inflammatory sources such as : breanna seeds, flax seed (needs to be ground), walnuts, hemp seeds, dark green leafy vegetables. It is important to avoid refined oils as much as possible especially that many have too much omega-6 that is pro-inflammatory (lead to inflammation as well as concern for heart and vascular disease). Turmeric can be found natural, used as the spice powder or the root with your food. This is also available as a capsule. If you are on a blood thinner, you will need to discuss with your pharmacist or physician before taking Turmeric If you have gall bladder disease or gall bladder stones, it is recommended to avoid turmeric capsules. Sweet cherries (raw cleaned or frozen), Turmeric , pineapple (contains bromelain), omega-rich foods, have anti-inflammatory benefit Start reviewing the Whole Plant Based Diet, by watching [place] over [employer] movie and then review website. There are many other resources and educational information on the Whole plant based diet on the Internet and documentaries. There are other resources for wellness that you can also benefit from, such as the [facility] website, [email or web address] and includes Plant based and Mediterranean diet, yoga and meditation. Please avoid all dairy products. You could use non-dairy milk such as Flax milk, Cashew milk, [place] milk, Rice milk, Oat milk or Hemp milk, instead. It is very important to avoid all: refined sugars (including high fructose syrup), refined carbohydrates, any artificial sweeteners and artificial preservatives, and soda and heavily processed food. Insure adequate hydration; drink at least 6 to 8 cups of water daily, certain people need less or more. Examples of Smoothies: Every morning you can start your day with a healthy natural anti-inflammatory smoothie, for example, you can blend: fresh or frozen sweet cherries, half a root of turmeric (1 to 2 inches), banana, blue berries, walnuts, few leaves of kale, add flax milk (or almond milk), and enjoy. You could add half an avocado if you like it smoother. If you do not tolerate walnuts, you can use flax seeds, breanna seeds or hemp seeds instead. If you do not like plant based milk, you can use coconut water or plainwater instead. Other smoothies, including green smoothies, are also very healthy and highly anti-inflammatory. Forexample fruits (such as banana or frozen stan or pineapple) and add significant amount of leafy greens, then add water or coconut water and blend until smooth. You can also add turmeric in this recipe. GENERAL INFORMATION ON BONE HEALTH : -Bone Density testing (DXA scan) as recommended. -Vitamin D supplementation is recommended, unless blood levels are sufficient. Recommended daily dose of 1000 to 2000 IU total a day, or the dose necessary to achieve a Vitamin D25-OH blood level of >31 and preferably closer to 40-60 ng/mL. Vitamin D pills are available over the counter. -Recommended daily dose of calcium: 1200mg total a day in divided doses. Calcium is usually sufficient in our regular diet, also available in multivitamins. Patients on certain dietary restrictions or those unable to meet their daily calcium by diety alone, may require calcium supplements. For patient with history of calcium kidney stones, Calcium Citrate would be the recommended supplement. It is recommended to avoid caclium carbonate supplement in this case, as these may increase risk of calcium kidney stones. The after visit summary has information on dietary calcium and instructions on reading calcium label and converting the %DV to mg. When you read a food label and you see calcium reported as DV %, add a zero and this will provide you with the approximate mg value of the calcium content in this food. For example, if a glass of almond milk is labeled as 40% calcium DV, then this contains 400 mg of calcium. For additional information, please see references provided. -Regular weight-bearing and muscle-strengthening exercise -Avoidance of tobacco smoking, excessive alcohol intake and excessive caffeine intake. -Fall and fracture precautions -It is recommend to continue regular follow up visits with your dentist every 6 months, and continue with good oral hygiene. Calcium: If your diet is sufficient in Calcium rich food, you will not need calcium supplement. Calcium Citrate is the preferred calcium if you have had kidney stones. Daily recommended calcium dose: 600mg twice a day with meals. Adequate calcium ingestion is essential for maintaining healthy bones. The recommended dose daily intake of calcium varies depending on individual needs but is usually between 1200 and 1500mg daily, preferably around 1200mg a day in divided dose (not all taken at once). This is equivalent to about five 8oz glasses of milk per day. Many foods are rich in calcium and they include: - Plant based, non-dairy, calcium rich products, include nuts, almond milk, beans, lentils - Vegetables and Fruit: bok-charlton, turnips, broccoli, kale, collards, - Dairy products: milk, cheese, yogurt, ice-cream - Fish products: canned salmon, sardines and shrimp - Cereals and nuts: almonds, sesame seeds, fortified cereals and oatmeal - Other foods: fortified orange-juice, figs, soybeans, other beans and eggs. If you have a low calcium diet and cannot tolerate calcium-rich foods, many supplements are available today. Your pharmacist can help you choose the one which best suits your needs. A few tips on supplements: - They should be easy to swallow - They should dissolve easily in cup of vinegar in < 15 minutes. - Count the ELEMENTAL calcium mgs. E.g. Calcium 499mg may have only 221mg of elemental Calcium. - Calcium citrate is the calcium supplement to take if you have had kidney stones and unable to meet your calcium requirements from food/diet alone. - There is such a variety today that it is best to bring in the bottle to your doctor to show them exactly what you are taking. Lastly too much calcium can be bad for you. Recent studies show extra supplements may increase yourrisk of kidney stones or cause high calcium levels in some people. You should discuss how much you should be taking with your doctor before starting them. Further Information is available from the following resources: www.nof.org (National Osteoporosis Foundation) http://www.osteo.org/osteolinks.asp [facility]: [phone]-BONE [facility] Calcium Information [place]: -Non-Dairy, Plant based Milk, can contain in1 glass up to 450 mg of calcium (300 to 450 mg) Exampled include Oat Milk, Flax Milk, [place] Milk, Cashew Milk, Soy Milk, Peas Milk general health and well being Examples of Food Sources of Calcium from [facility] Food Milligrams (mg) per serving Percent DV* Soymilk, calcium-fortified, 8 ounces 299 30 [place] juice, calcium-fortified, 6 ounces 261 26 Tofu, firm, made with calcium sulfate, cup* 253 25 Tofu, soft, made with calcium sulfate, cup* 138 14 Lkzjy-xh-cfp cereal, calcium-fortified, 1 cup 100-1,000 10-100 Turnip greens, fresh, boiled, cup 99 10 Kale, raw, chopped, 1 cup 100 10 Kale, fresh, cooked, 1 cup 94 9 Vincentian cabbage, bok charlton, raw, shredded, 1 cup 74 7 Bread, white, 1 slice 73 7 Tortilla, corn, oxide-av-uwzw/block, one 6 diameter 46 5 Tortilla, flour, dsocl-xk-zqwv/block, one 6 diameter 32 3 Bread, whole-wheat, 1 slice 30 3 Broccoli, raw, cup 21 2 * DV = Daily Value. DVs were developed by the U.S. Food and Drug Administration to help consumers compare the nutrient contents among products within the context of a total daily diet. The U.S. Department of Agriculture s (USDA s) Nutrient Database Web site lists the nutrient contentof many foods and provides comprehensive list of foods containing calcium arranged by nutrient content and by food name. *Calcium content varies slightly by fat content; the more fat, the less calcium the food contains. * Calcium content is for tofu processed with a calcium salt. Tofu processed with other salts does not provide significant amounts of calcium. You could acces this information online at: http://ods.od.nih.gov/factsheets/Calcium-HealthProfessional/ Vitamin D: Vitamin D3= cholecalciferol, available over the counter. Dose recommended 800 to 1000 iu daily with a meal; Certain patients require 7373-5593 iu daily and in patients deficient in Vitamin D, they require higher dosages. Certain patient requires higher dose, depending on their Vit D blood levels. Vitamin D is essential for calcium metabolism. It is really a hormone produced mainly in your skin after exposure to sunlight. Vitamin D helps you absorb calcium from your stomach and kidneys and incorporates it into your bones. Studies show approximately 50% of [place] men and women are vitamin D deficient in the winter. Milder cases of vitamin D are usually asymptomatic so the only way to know you have a problem is to have a blood level checked. More severe cases can cause osteomalacia(a.k.a. rickets) which can result in bone pain, weak bones and several abnormal laboratory tests and also weak muscles (a.k.a. myopathy). When this happens, your bones lose a lot of their calcium stores as the body tries to regulate the calcium required by other tissues. Prolonged deficiency can lead to severe bone disorders and fractures. Unlike calcium, dietary sources of vitamin D are rare, limited to a few fish oils particularly cod-liver oil, other fortified foods and egg yolks. and most are unhealthy. Natural source of vitamin D is through sunshine. This is usually during juan ramon seasons, for example a 30 minute exposure to sunshine. Some people are unable to be exposed to the sun due to skin condition. Often supplementation isneeded. Many multivitamins contain some vitamin D and vitamin D alone preparations are now available in several forms. The recommended daily intake of vitamin D used to be 400 and 800 international units, however, it is now known that larger amounts are needed, as discussed above. Your doctor can prescribe prescription strength vitamin D for you if necessary, if you have marked deficiency or diseases of the liver or kidney. Supplementation in patients with severe deficiency can stabilize or improve bone mineral density and in frail elderly persons, may reduce their risk of falling. Additional Information is available from: www.nof.org (the national osteoporosis foundation) http://www.[facility].org/arthritis/osteo/info.htm http://ods.od.nih.gov/factsheets/vitamind.asp [facility]: [phone] [facility] Calcium Information [place]: At [facility], we work as a team for your care, along with Nurse Practitioners, PhysicianAssistants, Nurses and Medical Assistants. It is a privilege and honor to serve you. Thank you for choosing [facility] for your healthcare. Sincerely, Alisson Macias APRN.DEEPAK [facility] History of Present illness Narrative* Alisson Macias APRN.CNP - 10/06/2022 1:11 PM EST FOLLOW UP VISIT Mack Uribe MD Joy Ortiz is a 57 year old year old patient here today for follow up of gout Interim History: Per telephone note pain behind left knee X 1 week sharp in nature, 8/10, pain at it's worse when getting up from sitting or lying. She thinks affecting ankle Easing up after walking Now having stiffness to left ankle. Denies any redness, swelling or warmth. Taking mitigare once daily, has not missed any doses. The longer she is on ankle it swells -Bilateral hand pain, right thumb has a big bulge X 2 weeks. Site is reddened, firm and sore to pressure, 8/10. Unable to open jars / caps AM stiffness 1 hour then improves Then once she sits down when goes to get back up worse again No gout attacks Tried tylenol Tried lidocaine spray and biofreeze Tolerating meds: Yes Missed doses- no Mitigare taking once daily Has not increased Not taking vit d No recent infection: uti in Aug resolved No vaccines No surgeries Review of Systems CONSTITUTION: Negative for: Fever and Recent weight change HEENT: Negative for: Nosebleeds, Mouth sores, Trouble swallowing and Dry mouth RESPIRATORY: Negative for: Cough, Shortness of breath and Pain with breathing GASTROINTESTINAL: Negative for: Melena, Diarrhea, Heartburn and Abdominal pain MUSCULOSKELETAL: Positive for: Arthralgias, Myalgias, Joint swelling and Morning Joint Stiffness Negative for: Muscle weakness NEUROLOGICAL: Negative for: Headaches, Numbness and Memory loss SKIN: Negative for: Rash, Skin changes, Hair loss and Nail changes EYES: Negative for: Eye pain, Eye redness, Eye dryness and visual disturbance CARDIOVASCULAR: Positive for: Leg swelling Negative for: Chest pain GENITOURINARY: Negative for: Dysuria and Hematuria HEMATOLOGIC/LYMPHATIC: Negative for: Swollen glands Past Medical Hx, Past Surgical Hx. Social Hx and Family Hx: reviewed ACTIVE PROBLEM LIST Left Upper Quadrant Pain - 06/13/2021 History of Asthma - 03/04/2020 Gastroesophageal Reflux Disease Without Esophagitis - 08/20/2018 Idiopathic Chronic Gout of Right Foot Without Tophus - 08/20/2018 Obesity, Class II, BMI 35-39.9 E66.9 - 11/06/2017 Presence of Drug Coated Stent in Right Coronary Artery - 11/05/2017 Arthralgia - 06/18/2017 Diabetes Mellitus Type 2, Controlled, Without Complications ([facility]) - 01/05/2017 Chest Pain - 03/12/2016 Chronic Thumb Pain - 11/08/2015 Atherosclerotic Coronary Vascular Disease Comment: 05/20/2015 Lexiscan perfusion normal, EF 68%; Echo normal; Cath 05/2014 Irregularies wiith 50% rca in-stent stenosis. 09/2012 RCA CARRI X2 to prox vessel Narciso (Generalized Anxiety Disorder) S/P Ptca (Percutaneous Transluminal Coronary Angioplasty) - 08/17/2015 Primary Osteoarthritis of Both Knees - 07/30/2015 Htn (Hypertension) - 08/26/2012 Hld (Hyperlipidemia) - 08/26/2012 Vitamin D Deficiency - 04/09/2012 Elevated C-Reactive Protein (Crp) - 04/09/2012 Multiple Joint Pain - 03/12/2012 Fatigue - 03/12/2012 Cts (Carpal Tunnel Syndrome) - 03/12/2012 Epicondylitis - 03/12/2012 PHYSICAL EXAM: VS:BP 110/68 Pulse 72 Wt 91.2 kg (201 lb) BMI 35.61 kg/m GEN: A & O in NAD. SKIN: no lesions HEENT: No conj. inj., oral ulcers, thrush LUNGS: CTA B/L HEART: RRR, no g/r/m NEURO: Mental Status: alert and oriented x 3 cheerful, Gait: Normal w/o assistive devices Tone: normal no focal weakness. MUSCULOSKELETAL: Sw Jts.:0 T Jts.:left knee and left ankle Shoulder some pain with rom No joint deformities, no rheumatoid nodules. calcifications or tophi. No SI tenderness, no neno's tenderness, no heel/plantar tenderness, lumbar flexion full, negative Katy's test. No clinical synovitis in the DIP's, PIP's, MCP's, wrists, elbows, shoulders, knees, ankles, midfoot, or toes. No knee effusions bilateral. Shoulder exam:from FROM: all upper and lower extremity joints Thoracic/Lumbar Spine: No percussion tenderness SLR: negative Extr.: no edema CBC Latest Ref Rng & Units 11/22/2021 01/24/2022 08/19/2022 10/06/2022 WBC 3.70 - 11.00 k/uL 5.35 - 6.92 7.85 HEMOGLOBIN 11.5 - 15.5 g/dL 14.7 13.4 14.5 14.0 HEMATOCRIT 36.0 - 46.0 % 45.8 39.3 44.0 42.8 PLATELETS 150 - 400 k/uL 241 - 250 252 ABS NEUT (ANC) 1.45 - 7.50 k/uL - - - 3.54 ABS LYMPH 1.00 - 4.00 k/uL - - - 3.14 CMP Latest Ref Rng & Units 01/03/2022 01/24/2022 08/19/2022 10/06/2022 NA 136 - 145 mmol/L - 143 - - SODIUM 136 - 144 mmol/L - - 144 142 K 3.5 - 5.1 mmol/L - 4.2 - - POTASSIUM 3.7 - 5.1 mmol/L - - 4.7 3.9 CHLORIDE 97 - 105 mmol/L - 103 106(H) 105 CO2 22 - 30 mmol/L - - 28 26 GLUCOSE 74 - 99 mg/dL - - 89 89 BUN 7 - 21 mg/dL - 16 12 14 CREATININE 0.58 - 0.96 mg/dL 0.90 0.85 0.84 0.77 CALCIUM, TOTAL 8.5 - 10.2 mg/dL - - 9.8 9.8 AST 13 - 35 U/L - - 35 29 ALT 7 - 38 U/L - - 29 27 ALKALINE PHOSPHATASE 34 - 123 U/L - - 103 126(H) Uric Acid Latest Ref Rng & Units 12/31/2018 03/15/2019 08/19/2022 10/06/2022 URIC ACID 2.5 - 6.6 mg/dL 6.4 5.3 5.8 4.2 ESR, WSR Latest Ref Rng & Units 01/18/2012 05/28/2013 06/11/2017 10/06/2022 WSR 0 - 20 mm/hr 9 17(H) 15 2 CRP Latest Ref Rng & Units 01/18/2012 04/05/2017 06/11/2017 10/06/2022 CRP <0.9 mg/dL 1.4(H) 2.1(H) 0.8 <0.3 CK Latest Ref Rng & Units 08/27/2012 08/29/2012 06/05/2015 11/22/2015 CK 30 - 220 U/L 123 168 205 84 RF and CCP Latest Ref Rng & Units 01/18/2012 03/12/2012 06/11/2017 RHEUMATOID FACTOR <16 IU/mL <7 - <10 CCP ANTIBODY, IGG <20 Units - <15 - Hepatitis Screen Latest Ref Rng & Units 03/12/2012 HEPBCOTOL NEGAT Negative HEPSABQ NEGAT Positive(A) HEPCABEIA NEGAT Negative HBSAGR NEGAT Negative TB Screen Latest Ref Rng & Units 04/10/2016 TBTEST 0 x 0 - 10 x 10 mm 0x0 Antibodies Latest Ref Rng & Units 08/25/2012 11/06/2017 10/06/2022 10/06/2022 KAYLA Negative - - Positive(A) - KAYLA TITER - - - 1:160 - KAYLA PATTERN - - - Nuclear homogenous - DNA ANTIBODY W/CONFIRMATION <30 IU/mL - - <12 <12 LUNCH WAGON OPERATOR ANTIBODY QUAL Negative - - Negative - SSA ANTIBODY QUAL Negative - - Negative - VIVIAN-1 ANTIBODY, IGG <1.0 AI - - <0.2 - VIVIAN 1 ANTIBODY QUAL Negative - - Negative - RIBOSOMAL LUNCH WAGON OPERATOR AB <1.0 AI - - <0.2 - RIBOSOMAL LUNCH WAGON OPERATOR QUAL Negative - - Negative - ANTI-SSA <1.0 AI - <0.2 <0.2 - ANTI-SSB <1.0 AI - <0.2 <0.2 - ANTI-SM <1.0 AI - - <0.2 - SM ANTIBODY Negative - - Negative - SCL-70 AB QUAL Negative - - Negative - SCL-70 ABS, EIA <1.0 AI - - <0.2 - CENTROMERE AB <1.0 AI - - <0.2 - CENTROMERE AB QUAL Negative - - Negative - CHROMATIN AB <1.0 AI - - <0.2 - CHROMATIN AB QUAL Negative - - Negative - PT SEC 8.4 - 13.0 sec 9.7 - - - PT INR 0.8 - 1.2 0.9 - - - Prior Test results discussed with patient. IMPRESSION/DIAGNOSIS: M10.9 Gout with manifestations (primary encounter diagnosis) M17.0 Primary osteoarthritis of both knees M25.50 Multiple joint pain M25.572 Acute left ankle pain M79.641, M79.642 Pain in both hands Per Dr. Cueva last office visit note Gout well controlled Gout, clinical diagnosis not crystal proven, no collection of synov fluid for aspiration at this time hyperuricemia She has had very good response to colchicine. She has not been on urate lowering therapy. Her urate was very low on low dose uloric and we discontinued uloric. Her urate has been well controlled with dietary changes. I had discussed discontinuing Uloric trial, espec that urate levels are < 3 and with reported warnings on febuxostat. I have reviewed reports on risk of thromboses and CV events with Uloric (reported with higher dose of 80mg/d). She is allergic to Allopurinol (rash) She has done well off Uloric and her urate has remained <6 off Uloric. Will continue to monitor. There is no clinical evidence for Rheumatoid Arthritis or systemic rheum disease, outside of gout Left medial epicondylitis and RC strain, may have RC tear, sec. to work, mechanically induced She will follow up with her Orthopedic surgeon for that. Reviewed conserv and prev care She has history of vitamin D deficiency, corrected on supplement At today's visit the patient's gout disease appears to be in remission. Pain in left knee, left ankle and hands. Trouble opening jars. Am stiffness 1 hour, worse after resting. Tried tylenol, lidocaine spray and biofreeze. Gout controlled with mitgare, no gout attacks. .Has not needed increase. Not taking vit d . Will update labs and xrays. Patient agrees with plan. PLAN/RECOMMENDATIONS: Office Visit on 10/06/22 XR KNEE GENERAL 4V AP BOTH/PA BOTH/LAT/MERC LEFT XR ANKLE GENERAL 3V AP/LAT/OBL LEFT XR HAND GENERAL 3V PA/LAT/OBL BILATERAL VITAMIN D 25 HYDROXY SED RATE WESTERGREN C-REACTIVE PROTEIN (CRP) COMP METABOLIC PANEL DNA AB DS + CONF BLD CBC + DIFF URIC ACID BLOOD KAYLA BY IFA WITH REFLEX Labs and xrays May try asper creme or salon pas otc patches Ice or heat -Please continue on the Colchicine: 1 tablet once a day colchicine can be taken twice daily for any concerned of gout attack This can help prevent and treat gout attack Will follow the uric acid blood test - Vitamin D: 2000 International Units daily with dinner Discussed medications dosage, usage, goals of therapy and side effects. Patient instructed to notify provider of any changes in medical condition. Patient in agreement and in understanding of plan.. Follow up: as scheduled Alisson Macias APRN.CNP I spent a total of 36 minutes on the date of the service which included preparing to see the patient, [id number] patient care, completing clinical documentation, obtaining and/or reviewing separately obtained history, performing a medically appropriate examination, counseling and educating the pat ient/family/caregiver, and ordering medications, tests, or procedures. Portions of this note have been copied from my previous note and have been updated to reflect today's visit note October 06, 2022 all reflect current medical decision making from date of this visit. Recommendations to share with referring physician/Primary care physician : Dear Dr. Uribe I had the pleasure of seeing your patient, Joy Ortiz . I have enclosed a copy of my clinic note with my assessment and recommendations for this patient. Recommendations for your consideration as you deem necessary: -Continuous follow up with Primary care physician for cardiovascular disease prevention, for age appropriate cancer screening and routine health maintenance and wellness, and infection precautions and age appropriate immunization recommended. Thank you for allowing me to participate in the care of your patient. CC: Mack Uribe MD documented in this encounterMartin [facility]02-[facility]23 Miscellaneous Notes* Telephone Encounter - Shannan Westbrook LPN - 10/06/2022 8:13 AM EST Called patient. Reports: --pain behind left knee X 1 week, sharp in nature, 03/22, pain at it's worse when getting up from sitting or lying. Now having stiffness to left ankle. Denies any redness, swelling or warmth. Taking mitigare once daily, has not missed any doses. --Bilat hand pain, right thumb has a big bulge X 2 weeks. Site is reddened, firm and sore to pressure, 03/22. Patient has been added to see Alisson Macias CNP, for toady at 1pm. * Telephone Encounter - Eric Nina MD - 10/05/2022 8:50 AM EST This needs triage If pain is significant, other than usual osteoarthroses pains, patient needs evaluation in office. Please call patient and obtain additional information She is scheduled for next month with me. If needs to be seen sooner, please offer sooner apt with me (in case I have cancellations) or Alisson Macias Rheum DEEPAK or any of our Rheumatology LALA's throughout the [facility] rhe[facility] dept for further evaluation. thank you kindly, fa documented in this encounterMartin [facility] Hospital02-03-2023 History of Present illness Narrative* Mack Uribe MD - 09/15/2022 1:23 PM EST 1:23 PM VIRTUAL VISIT PROGRESS NOTE This is a virtual visit using [facility] video visit. It required patient-provider interaction for themedical decision making as documented below. Joy Ortiz is a 57 year old female seen for chief complaints of follow up from [facility] ER She was seen in the Er for chief complaints of left flank pain radiating to the front She was seen in [facility] for flank pain, where she was told she had uti but per [facility] she does not have UTI chest xray and ct scan of abdomen unremarkable per patient The pain is sharp and constant Chills + Denies blood in stools Nausea+, worse in the morning Denies constipation or diarrhea HISTORY REVIEWED (electronic chart updated): PAST MEDICAL HISTORY Diagnosis Date Asthma dx'd 15 yrs ago- has not been on medication Atherosclerotic coronary vascular disease 05/20/2015 Lexiscan perfusion normal, EF 68%; Echo normal; Cath 05/2014 Irregularies wiith 50% rca in-stent stenosis. 09/2012 RCA CARRI X2 to prox vessel Bradycardia CAD (coronary artery disease) Carpal tunnel syndrome Chest pain Colon polyp Cscope 05/29/14 w polyps, f/u 3 yrs. Depression Diverticulitis NARCISO (generalized anxiety disorder) HTN (hypertension) Hyperlipidemia Pneumonia Sleep apnea Suspected COVID-19 virus infection 03/04/2020 Vitamin D deficiency 04/09/2012 PAST SURGICAL HISTORY Procedure Laterality Date CARDIAC CATHETERIZATION HX 08/2012 stents x 2 COLECTOMY PARTIAL W/ANASTOMOSIS 2017 Sigmoidectomy COLONOSCOPY 05/29/2014 - repeat 3 years ECHO 05/20/2015 mildly dilated IVC HERNIA REPAIR HX Bilateral -hiatal hernia LEFT HEART CATH 05/12/2014 01/26/22- unremarkable LEXISCAN STRESS TEST PANEL 05/20/2015 NORMAL SALPINGO-OOPHORECTOMY COMPL/PRTL UNI/BI SPX 1994 Salpingo-oophorectomy TOTAL ABDOMINAL HYSTERECT W/WO RMVL TUBE OVARY 1989 Hysterectomy, DORENE FAMILY HISTORY Problem Relation Age of Onset Macular Degen Father Diabetes Father Coronary Artery Disease Father Multiple stents in early 60's, age 70 Hypertension Father No Ocular Disease Mother Colon Cancer Mother 53 Hypertension Mother Diabetes Mother Hypertension Brother Cancer Brother epithelioid of leg. Colon Cancer Maternal Grandmother other (htn) Maternal Grandmother other (lung cancer) Maternal Grandfather Coronary Artery Disease Paternal Aunt Coronary Artery Disease Paternal Uncle Coronary Artery Disease Paternal Uncle Social History Tobacco Use Smoking status: Never Smokeless tobacco: Never Vaping Use Vaping Use: Never used Substance Use Topics Alcohol use: No Drug use: No Current Outpatient Medications Medication Sig pantoprazole DR (PROTONIX) 40 mg tablet Take 1 tablet by mouth once daily. MEDICATION, NON-DATABASE Take by mouth twice daily. Tumeric with black pepper Bifidobacterium infantis (ALIGN ORAL) Take by mouth once daily. estradiol (ESTRACE) 0.01 % (0.1 mg/gram) vaginal cream Use 1 gram vaginally daily for 2 weeks followed by 1 gram twice weekly MYRBETRIQ 25 mg Tb24 Take 25 mg by mouth once daily. nebivolol (BYSTOLIC) 10 mg tablet TAKE 2 TABLETS (20 MG) IN THE MORNING AND 1 TABLET (10 MG) IN THEEVENING rosuvastatin (CRESTOR) 40 mg tablet Take 1 tablet by mouth daily at bedtime. losartan (COZAAR) 25 mg tablet Take 1 tablet by mouth once daily. nitroglycerin sublingual (NITROQUICK) 0.4 mg SL tablet DISSOLVE 1 TABLET UNDER THE TONGUE NEEDEDFOR CHEST PAIN MITIGARE 0.6 mg capsule TAKE 1 CAPSULE TWICE A DAY (TAKE 1 CAPSULE ONCE DAILY AND IF NEEDED CAN INCREASE TO TWICE A DAY INSTRUCTED) aspirin, enteric coated (ECOTRIN LOW STRENGTH) 81 mg EC tablet Take 1 tablet by mouth once daily. No current facility-administered medications for this visit. ALLERGIES Allergen Reactions Nitrofurantoin [place]* Vomiting, Shortness of Breath, Anaphylaxis, Cough Allopurinol Rash patient reported in Home Inventory S[pecialists message noted on November 21, 2017 Bactrim [Sulfametho* Hives Neurontin [Gabapent* Other: See Comments Mouth sores REVIEW OF SYSTEMS: GENERAL: feeling well without fatigue, no recent change in weight RESPIRATORY: no cough, no wheezing or shortness of breath CARDIOVASCULAR: no chest pain, no palpitations PHYSICAL EXAMINATION: VIDEO EXAM: (if completed, performed via video enabled technology) GENERAL: alert and appropriate, in no distress, well-hydrated, well nourished, and happy, smiling, interactive RESPIRATORY: breathing non-labored NEUROLOGIC: no cerebral deficits noted and no obvious deficit ASSESSMENT: PLAN: ASSESSMENT/PLAN: 1. Left flank pain - ICD9: 789.09, ICD10: R10.9 repeat UA and C/S - URINALYSIS, WITH MICROSCOPIC - URINE CULTURE I advised to call the office for results Mack Uribe MD There are no Patient Instructions on file for this visit. 1:35 PM Mack Uribe MD documented in this encounterMartin [facility] Hospital01-17-2023 Evaluation note* Encounter Date Diagnosis Assessment Notes Treatment Notes Treatment Clinical Notes Aug, History of diverticulitis (ICD-10 - Z87.19) Aug, Barretts esophagus (ICD-10 - K22.70) OBTAIN RECORDS FROM IN [place] INCREASE PANTOPRAZOLE 40 MG TO TWICE A DAY RTO 4 MONTHS Aug, History of colon polyps (ICD-10 - Z86.010) Aug, Globus sensation (ICD-10 - F45.8) Aug, Constipation (ICD-10 - K59.00) START METAMUCIL GUMMIES Aug, Family history of colon cancer (ICD-10 - Z80.0) [facility] Other 11-29-2022 Evaluation note* Encounter Date Diagnosis Assessment Notes Treatment Notes Treatment Clinical Notes Jun, Stiffness of left ankle joint (ICD-10 - M25.672) Radiographs reviewed with patient as no abnormality. Instructed on gentle motion and strengthening exercises. Offered formal therapy order, patient declined, will work on exercises at home. If no improvement with conservative treatment, may consider further evaluation. Advised patient obtain OTC ankle brace for stability. Call with questions/concerns. Jun, Acute left ankle pain (ICD-10 - M25.572) Jun, Sprain of other ligament of left ankle, initial encounter (ICD-10 - S93.492A) [facility] Other 10-14-2022 Miscellaneous Notes* Telephone Encounter - Marjorie Tatum RN - 05/26/2022 1:58 PM EDT Left message on machine for pt to call office Please await call back '(05-26-2022) Left VM for patient to return call. Let patient know her urine culture did not grow any bacteria. If she was started on an antibiotic, she can stop it. If her symptoms continue, contact PCP. TY. * Telephone Encounter - Maria Elena Bravo APRN.CNP - 05/24/2022 10:40 AM EDT Left VM for patient; documented in this encounterMartin [facility] Hospital10-14-2022 History of Present illness Narrative* Mack Uribe MD - 05/26/2022 1:57 PM EDT May 26, 2022 Subjective: Joy Ortiz is a 57 year old female who presents today for follow up of her medical problems. C/O sharp pain in the epigastrium and left upper aspect of abdomen, nausea + She was taken off protonix and sucralfate about an year ago, by Diabetes-Controlled on current medication Medication complaiance-Good, almost daily or as directed Denies [[id number]] nausea, vomiting, and no appetite Hypertension-adequately controlled HTN- well controlled, denies chest pain, shortness of breath, palpitations Exercise WALKS DAILY YO EXERCISE Low salt diet {No added salt diet Current Outpatient Medications Medication Sig MEDICATION, NON-DATABASE Take by mouth twice daily. Tumeric with black pepper Bifidobacterium infantis (ALIGN ORAL) Take by mouth once daily. estradiol (ESTRACE) 0.01 % (0.1 mg/gram) vaginal cream Use 1 gram vaginally daily for 2 weeks followed by 1 gram twice weekly MYRBETRIQ 25 mg Tb24 Take 25 mg by mouth once daily. nebivolol (BYSTOLIC) 10 mg tablet TAKE 2 TABLETS (20 MG) IN THE MORNING AND 1 TABLET (10 MG) IN THEEVENING rosuvastatin (CRESTOR) 40 mg tablet Take 1 tablet by mouth daily at bedtime. losartan (COZAAR) 25 mg tablet Take 1 tablet by mouth once daily. nitroglycerin sublingual (NITROQUICK) 0.4 mg SL tablet DISSOLVE 1 TABLET UNDER THE TONGUE NEEDEDFOR CHEST PAIN MITIGARE 0.6 mg capsule TAKE 1 CAPSULE TWICE A DAY (TAKE 1 CAPSULE ONCE DAILY AND IF NEEDED CAN INCREASE TO TWICE A DAY INSTRUCTED) aspirin, enteric coated (ECOTRIN LOW STRENGTH) 81 mg EC tablet Take 1 tablet by mouth once daily. sertraline (ZOLOFT) 100 mg tablet TAKE 1 TABLET DAILY sucralfate (CARAFATE) 1 gram tablet Take 1 g by mouth four times daily. pantoprazole DR (PROTONIX) 40 mg tablet TAKE 1 TABLET DAILY No current facility-administered medications for this visit. PAST MEDICAL HISTORY Diagnosis Date Asthma dx'd 15 yrs ago- has not been on medication Atherosclerotic coronary vascular disease 05/20/2015 Lexiscan perfusion normal, EF 68%; Echo normal; Cath 05/2014 Irregularies wiith 50% rca in-stent stenosis. 09/2012 RCA CARRI X2 to prox vessel Bradycardia CAD (coronary artery disease) Carpal tunnel syndrome Chest pain Colon polyp Cscope 05/29/14 w polyps, f/u 3 yrs. Depression Diverticulitis NARCISO (generalized anxiety disorder) HTN (hypertension) Hyperlipidemia Pneumonia Sleep apnea Suspected COVID-19 virus infection 03/04/2020 Vitamin D deficiency 04/09/2012 PAST SURGICAL HISTORY Procedure Laterality Date CARDIAC CATHETERIZATION HX 08/2012 stents x 2 COLECTOMY PARTIAL W/ANASTOMOSIS 2017 Sigmoidectomy COLONOSCOPY 05/29/2014 - repeat 3 years ECHO 05/20/2015 mildly dilated IVC HERNIA REPAIR HX Bilateral -hiatal hernia LEFT HEART CATH 05/12/2014 01/26/22- unremarkable LEXISCAN STRESS TEST PANEL 05/20/2015 NORMAL SALPINGO-OOPHORECTOMY COMPL/PRTL UNI/BI SPX 1994 Salpingo-oophorectomy TOTAL ABDOMINAL HYSTERECT W/WO RMVL TUBE OVARY 1989 Hysterectomy, DORENE ALLERGIES: Nitrofurantoin Monohyd/M-Cryst, Allopurinol, Bactrim [Sulfamethoxazole], and Neurontin [Gabapentin] REVIEW OF SYSTEMS GENERAL: No weight loss, malaise or fevers. RESPIRATORY: Negative for cough, hemoptysis, wheezing, COPD, dyspnea or shortness of breath CARDIOVASCULAR: Negative for chest pain, leg swelling, hypertension, CHF or palpitations GI: see hpi ENDOCRINE: Negative for cold or heat intolerance, polyuria, polydipsia and goiter NEURO: negative for headaches All others reviewed and negative BP 122/76 Pulse 72 Wt 91.8 kg (202 lb 6.4 oz) BMI 35.85 kg/m Body mass index is 35.85 kg/m . Last 3 Encounter BP Readings: Date: BP: 05/26/2022 122/76 05/23/2022 134/70 05/09/2022 128/75 PHYSICAL EXAMINATION: Well-developed, well nourished female in no acute distress HEART: Regular rhythm and normal rate, no murmurs, gallops, or clicks CHEST: Clear to auscultation, equal breath sounds bilaterally, no rales, rhonchi or wheezes ABDOMEN: Soft, BS active. No M/O. Moderately severe tenderness in the epigastrium and left upper quadrant MUSCULOSKELETAL: Range of motion normal in hips, knees, shoulders, and spine, No joint swelling, deformity, or tenderness NEURO: Alert and oriented x 3, Cranial nerves II-XII grossly intact, and No involuntary movements ASSESSMENT: ASSESSMENT/PLAN: 1. Controlled type 2 diabetes mellitus without complication, without long-term current use of insulin (HCC) - ICD9: 250.00, ICD10: E11.9 (primary diagnosis) Controlled. - Continue current medications 2. Essential hypertension - ICD9: 401.9, ICD10: I10 - good control - Continue current medication(s) - Encouraged dietary sodium restriction/DASH diet - Recommended regular aerobic exercise. - Goal of BP <130/80 3. Gastroesophageal reflux disease without esophagitis - ICD9: 530.81, ICD10: K21.9 - Discussed lifestyle modifications including losing weight, limiting caffeine, no meals three hours before sleep, and head of bed elevation restart divya nix - PANTOPRAZOLE 40 MG TABLET,DELAYED RELEASE 4. Encounter for immunization - ICD9: V03.89, ICD10: Z23 - PFIZER-BIONTECH COVID-19 BIVALENT BOOSTER VACCINE, AGE 12+ YR MD Mack Valero MD Follow up: 4 weeks Mack Uribe MD documented in this encounterMartin [facility] Hospital10-11-2022 Miscellaneous Notes* Telephone Encounter - Tracie Perry - 05/23/2022 1:33 PM EDT Spoke with patient and have her scheduled for an office visit on 05/26 - that is her day off and she is coming from [place]. documented in this encounterMartin [facility] Hospital10-11-2022 Instructions* Patient Instructions* Shanta Monahan APRN.DEEPAK - 05/23/2022 11:38 AM EDT ASSESSMENT/PLAN: 1. Left upper quadrant abdominal pain - ICD9: 789.02, ICD10: R10.12 Results for orders placed or performed in visit on 05/23/22 UA DIP, URINE (POC) Result Value Ref Range GLUCOSE UA (POCT) Negative Negative mg/dL BILIRUBIN UA (POCT) Negative Negative KETONE UA (POCT) Negative Negative mg/dL SPECIFIC GRAVITY UA (POCT) >=1.030 1.005 - 1.030 HEMOGLOBIN/BLOOD UA (POCT) Trace-intact (A) Negative PH UA (POCT) 7.0 4.5 - 8.0 PROTEIN UA (POCT) Negative Negative mg/dL UROBILINOGEN UA (POCT) 0.2 Normal E.U./dL NITRITE UA (POCT) Negative Negative LEUKOCYTES UA (POCT) Negative Negative COLOR UA (POCT) Yellow CLARITY UA (POCT) Clear - URINE CULTURE. EC will notify of results and treat as needed. Follow up with PMD/ER if symptoms worsen. Discharged ambulatory with steady gait. No acute distress. Shanta Monahan APRN.DEEPAK documented in this encounterMartin [facility] Hospital10-11-2022 History of Present illness Narrative* Shanta Monahan APRN.DRYING OVEN TENDER - 05/23/2022 11:21 AM EDT This note was created using [employer]. Subjective Joy Ortiz is a 57 year old female. Joy Ortiz 57 year old female Pres[facility] to [facility] with c/o pain across left abdomen into back, has frequency with urination and pressure with urination. Has had UTI x 3 this year. Just saw her Pmd x 3 weeks ago and started on Estrogen cream. No NVD. Does have diverticulitis, has similar symptoms with flare ups. This has been ongoing for 2 weeks off and on. Got worse last pm, had trouble sleeping. No treatments OTC. Pain 01/20 Review of Systems Constitutional: Negative for chills, diaphoresis, fatigue and fever. Eyes: Negative for discharge and itching. Respiratory: Negative for cough and shortness of breath. Cardiovascular: Negative for chest pain. Gastrointestinal: Positive for abdominal pain. Negative for diarrhea, nausea and vomiting. Genitourinary: Positive for dysuria and frequency. Musculoskeletal: Negative for arthralgias, back pain and neck stiffness. Skin: Negative for color change, pallor and rash. Allergic/Immunologic: Negative for environmental allergies, food allergies and immunocompromised state. Neurological: Negative for dizziness and weakness. Psychiatric/Behavioral: Negative for agitation and behavioral problems. Objective There were no vitals taken for this visit. Physical Exam Constitutional: General: She is in acute distress (appears uncomfortable). Appearance: Normal appearance. She is normal weight. She is not ill-appearing or toxic-appearing. HENT: Head: Normocephalic. Eyes: Pupils: Pupils are equal, round, and reactive to light. Cardiovascular: Rate and Rhythm: Normal rate and regular rhythm. Heart sounds: Normal heart sounds. Pulmonary: Effort: Pulmonary effort is normal. No respiratory distress. Breath sounds: Normal breath sounds. Abdominal: General: Bowel sounds are normal. There is no distension. Palpations: Abdomen is soft. Tenderness: There is abdominal tenderness in the epigastric area, left upper quadrant and left lower quadrant. There is left CVA tenderness and guarding. There is no right CVA tenderness. Musculoskeletal: General: No swelling or tenderness. Normal range of motion. Cervical back: Normal range of motion and neck supple. No rigidity or tenderness. Lymphadenopathy: Cervical: No cervical adenopathy. Skin: General: Skin is warm and dry. Coloration: Skin is not pale. Neurological: General: No focal deficit present. Mental Status: She is alert and oriented to person, place, and time. Psychiatric: Mood and Affect: Mood normal. Behavior: Behavior normal. Assessment and Plan 1. Left upper quadrant abdominal pain - ICD9: 789.02, ICD10: R10.12 Results for orders placed or performed in visit on 05/23/22 UA DIP, URINE (POC) Result Value Ref Range GLUCOSE UA (POCT) Negative Negative mg/dL BILIRUBIN UA (POCT) Negative Negative KETONE UA (POCT) Negative Negative mg/dL SPECIFIC GRAVITY UA (POCT) >=1.030 1.005 - 1.030 HEMOGLOBIN/BLOOD UA (POCT) Trace-intact (A) Negative PH UA (POCT) 7.0 4.5 - 8.0 PROTEIN UA (POCT) Negative Negative mg/dL UROBILINOGEN UA (POCT) 0.2 Normal E.U./dL NITRITE UA (POCT) Negative Negative LEUKOCYTES UA (POCT) Negative Negative COLOR UA (POCT) Yellow CLARITY UA (POCT) Clear - URINE CULTURE. EC will notify of results and treat as needed. Follow up with PMD/ER if symptoms worsen. Discharged ambulatory with steady gait. No acute distress. Shanta Monahan APRN.DRYING OVEN TENDER documented in this encounterMartin [facility] Hospital10-11-2022 History of Present illness Narrative* Vinny Calvillo, OD - 05/23/2022 10:58 AM EDT (H25.813) Combined forms of age-related cataract of both eyes (primary encounter diagnosis) Comment: Accounts for distance changes Plan: Update glasses and wear multimedia programmer (Z13.5) Screening for diabetic retinopathy Comment: No retinopathy Plan: Observation Hemoglobin A1C (%) Date Value 03/28/2022 5.8 11/22/2021 6.0 04/02/2021 5.8 10/02/2020 6.7 09/20/2019 6.0 03/15/2019 5.9 09/10/2018 5.7 RTC 1 year Full The nature of the patient's eye disease, its relationship to systemic health, its genetic components, and its prognosis have been explained to the patient/family. The treatment options/risks/benefitshave been discussed. Questions answered. I have interviewed and examined Joy Ortiz. I have confirmed and edited as necessary the chief complaint, history of present illness, past medical history, medications, family history, social history, review of systems, and exam findings as obtained by others. I agree with the assessment and plan as stated above,and have discussed them in detail with the patient. Vinny Calvillo, OD May 23, 2022 10:59 AM documented in this encounterMartin [facility] Hospital09-27-2022 Instructions* Patient Instructions* Eric Nina MD - 05/09/2022 1:21 PM EDT -PLEASE NOTE THAT WE REVIEW ALL YOUR TEST RESULTS AT YOUR NEXT FOLLOW UP VISIT WITH YOU. IF ANY ABNORMAL LAB REQUIRES SOONER ATTENTION, WE WILL CONTACT YOU. -If you have signed up on [facility], we will release your test results through [facility]. I wish you the best of health and wellness. Please take care and stay safe and healthy. Consume a healthy diet, stay well hydrated, sleep well, be happy, improve stress (include meditation), exercise regularly. Spend some time in nature, around trees and lee (forest bathing) and enjoy half an hour daily in the sun when possible (and benefit from its natural near infrared light, also your skin will be able to produce natural vitamin D). These have been shown to help with wellbeing, promoting a healthy immune system and healing. -Please continue on the Colchicine: 1 tablet once a day colchicine can be taken twice daily for any concerned of gout attack This can help prevent and treat gout attack Will follow the uric acid blood test with your August 2022 labs - Vitamin D: 2000 International Units daily with dinner - Maintaining good vitamin D blood levels is important for bone health and overall health. Please see additional information on vitamin D below. A vitamin D blood test, called vitamin D 25-hydroxy (OH) is obtained to assess vitamin D level. If the vitamin D is low, you will need to take a vitamin D supplement. If you are already on a vitamin D supplement, then the dose will need to be adjusted. Also you multivitamin may contain vitamin D. Vitamin D is a fat soluble vitamin that requires it be taken with good fat to be absorbed. Examplesof healthy fat include nuts, seeds, avocados, olives and for the most part the meal of the day. Spending up to 30 minutes in the sun during Summer and late Spring can provide natural vitamin D tothe uncovered skin (arms, legs) - We have discussed Turmeric, over the counter supplement This has been reported to help with osteoarthroses and inflammatory arthropathy Turmeric is available in pill form or liquid and can be taken as 500 mg to 1000 mg twice daily withmeals. Make sure there is black pepper in your meal when you take the turmeric so that it works better The black pepper could be present in the pill or can be with your meal. Those who have gallbladder or gall stone disease or on blood thinners or , should not take Turmeric. Turmeric is a spice that is used in many culinary cuisines, such as jimenez. You can consume it as a spice, instead of a supplement. The dose for the spice would be 1/4 to 1/2 teaspoon twice daily with a meal. This is usually mixed with food or a nut butter or blended in a smoothie to drink- with a plant based milk and half a banana. A large randomized controlled study, the VITAL trial, showed that the consumption of vitamin D and omega-3 supplements can lead to decreased risk of auto-immune disease, by 30% or more, especially ifthe vitamin D blood level improves to the 40's range. Citation of the vitamin D study: Supriya Ramirez, Porfirio NR, Vince EK, Magy S, Marcus J, Aretha V, Sandra G, Chente IM, Jim JE, Pool KH. Vitamin D and marine omega 3 fatty acid supplementation andincident autoimmune disease: VITAL randomized controlled trial. BMJ. 2021Sep 07;376:e165893. doi: 1 0.1136/mit-9302-692039. PMID: [id number]; PMCID: [id number]. In this study they used: 1) Vitamin D 2000 international units once daily with meals. You may need more if your blood level of vitamin D is not up to the 40 range 2) Holland-3 1000 mg once daily I recommend plant based omega-3 (over fish oil), which is algal oil. -Vitamin D and Holland-3 have been reported to help with inflammation and auto- immune disease and Turmeric with inflammation. You can also take Turmeric 500 to 1000 mg twice daily with meals (with black pepper) This has been reported to help with osteoarthroses and inflammatory arthropathy Turmeric is available in pill form or liquid and can be taken up to 2000 mg twice daily. Make sure there is black pepper in your meal when you take the turmeric so that it works better The black pepper could be present in the pill or can be with your meal. Those who have gallbladder or gall stone disease or on blood thinners or , cannot take it. - Your calcium can be sufficient in your diet Healthy food that are rich in calcium include: nuts, seeds, legumes/beans, peas, dark green leafy vegetables, plant based milk Additional calcium rich foods listed below - Soaking Almonds overnight in the fridge with drinking water, can help with softening the almonds and improved absorption of the almonds. See additional information below on calcium. - I recommend following a healthy lifestyle. You can find additional information below. I recommend this to all my patients, as I have seen convincing scientific evidence, and seen the results in my practice, of the benefits of this healthy lifestyle to overall health and wellness. I hope you will find this beneficial as well. A whole plant based diet and healthy lifestyle have been reported to be optimal for health in general, anti-inflammatory diet, prevention of common chronic diseases, healthy weight management, memoryand brain healthy, bone health. Recommendations for healthy lifestyle include: Healthy nutritious diet, anti-inflammatory diet, appropriate exercise, good sleep hygiene, stress management, supplementing vital deficiencies and maintaining healthy weight. with BMI that does not exceed 25 to 26 . 5 points to remember to improve your health and continue on a healthy path: 1- Optimal nutritious food, such as a Whole Plant Based diet You can watch the movie that features the Whole Plant Based diet, Gilchrist over knives (see video online and visit website). Another movie that was recently released is: Eating You Alive (you can find it at [employer] [facility]) and The Trutap Changers movie Dr. Huang Rivero is a [facility] physician who is an expert in Whole Plant based diet. His website is Buffer. His research highlights the benefits of the Whole food plant based diet in reversing and preventing heart disease. Mrs. Rivero (his ) has a cookbook with many recipes on whole plant based food: The Prevent and Reverse Heart Disease cookbook. You can also consider reading his son, Gian Rivero's book: The Engine 2 cookbook Gian is a retired meat stringer who has helped many people get healthier by following the whole food plantbased diet. Dr. Madan Chang, has a website and free lala to help get started on a whole plant based diet, at www.pcrm.org and you can log on for free for his 21-Day Kickstart with meals and recipes to follow for21 days. There is also a free lala for that. He has multiple free videos and YouTube, for example: ht tps://youtu.be/iyzEjdyC5g9 , https://youtu.be/[email or web address] He has written multiple books, including Power Food for the Brain, The Cheese Trap, Dr. Madan Chang's Program for Reversing Diabetes, Your Body in Balance Dr. Lennox Peck has shown the benefit of a starch based whole food plant based diet to his Rheumatoid Arthritis patients, as well as patient with diabetes II, hypertension, obesity, multiple sclerosis, heart disease, acne, and other, his website: www.milena.Optovue Dr. Kayley Monahan is a renowned geology scientist, who has studied and researched the benefits of the Whole plant based diet. He has also researched the adverse effects of animal proteins on health. He presents many of his research findings in his book The [place] study. Dr. Arnie Blanchard has completed many research trials proving the reversal of diseases, such as heart disease and early prostate cancer, with healthy lifestyle and the Whole Plant based diet. Dr. Arnie Blanchard website is: www.domoLiftopia.[email or web address] His new book: Undo It, has evidence based information and guide to following this healthy lifestyle. Dr. Genaro Mccarty has dedicated a website and additional time to reviewing all food related articles and research and presents them in his power point presentation and on his website at: nutritionfacts.org which is all free. Dr. Mccarty has multiple free videos and YouTube, for example https://Pluromed.be/aSgNkhgVtks and https://Pluromed.[employer]/lXXXygDRyBU. He has written multiple books including: How Not To and How Not To Diet He is now working on his next book: How Not To Age Dr. Floresita León (from the [facility]), has articles on the following website: Plug.dj.Optovue Also, you could find additional information on practical to follow recipes by reading or watching online and YouTube such as: Refueling Ramp Attendant AJ, Cooking With Plants, The Vegan Corner (recipes from an [place] Refueling Ramp Attendant), The Whole Foods Plant Based Cooking Show and visiting the provided websites for additional information on the whole plant based benefit and cooking recipes. You can also consider watching the vlogs of some of the plant based Athletes such as William June Derek on [employer] Nutrition. Dr. Sarah Navas (a psychiatrist who suffered with lupus) has helped reverse her Systemic Lupus Erythematosus and helps many patients with their auto-immune diseases, based on her recommendations of the whole food plant based diet and the green smoothies. She has a facebook and website, and on youtube her channel is: Goodbye Lupus Some people have adverse effect or intolerance to gluten. Certain patients with auto-immune disease, including auto-immune thyroid disease, need to avoid gluten. If you suspect you are gluten sensitive or intolerant, consider gluten free diet. Gluten could leadto increased inflammation in the bowels and body in certain patients. Not all your food has to be organ if you cannot afford or find them. Consider organic and non-GMO products when shopping for your food, when possible. GMO are genetically modified food that may have adverse impact on our health. If you are unable to purchase organic of non-GMO, you can wash your produce with white vinegar or soak in baking soda and water (see details from Dr. Osorio's website nutritionfacts.org) and rinse well with water. 2- Regular Exercise, such as beginner yoga, ke chi, stretching, cardio, gradual strengthening, pool therapy, physical therapy Come As You Are: YOGA - Gentle Yoga Anyone Can Do Anywhere [email or web address]/yoga Also on youtube: yoga with Karyna 3- Good Sleep (poor sleep impacts everything, recommended sleep is 7.5 to 8 hrs. a night). Certain people need less or more sleep. Meditation and relaxation techniques have shown to help with improving sleep. 4- Stress management, staying positive, be happy, laugh often (it is a great medicine) Find time to relax and meditate if possible. Following steps 1-3 will help with this as well. In psychiatric disorders, it is important to follow with a professional on the optimal management of depression, anxiety or psychiatric illness 5- Supplements Supplementing necessary vitamins and minerals, correcting any deficiencies, i.e. Vitamin D, B12, omega-3 fatty acids etc... Go natural when possible -Important notice: If you are following a Whole plant based diet, it is recommended to take [id number], sublingual, dissolve under the tongue, take once daily. Vitamin B12 is available over the counter, dose could be 2500 mcg, and can be taken once a week, and if your blood levels are low, you mayneed to take it once daily or a higher dose. Raw: Garlic, Cilantro, Amenia nuts, Pumpkin seeds, Truchas seeds and Flax seed powder have been reported to help with certain metal detoxification such as mercury. Holland-3 plant based rich foods are good anti-inflammatory sources such as : breanna seeds, flax seed (needs to be ground), walnuts, hemp seeds, dark green leafy vegetables. It is important to avoid refined oils as much as possible especially that many have too much omega-6 that is pro-inflammatory (lead to inflammation as well as concern for heart and vascular disease). Turmeric can be found natural, used as the spice powder or the root with your food. This is also available as a capsule. If you are on a blood thinner, you will need to discuss with your pharmacist or physician before taking Turmeric If you have gall bladder disease or gall bladder stones, it is recommended to avoid turmeric capsules. Sweet cherries (raw cleaned or frozen), Turmeric , pineapple (contains bromelain), omega-rich foods, have anti-inflammatory benefit Start reviewing the Whole Plant Based Diet, by watching Gilchrist over [employer] movie and then review website. There are many other resources and educational information on the Whole plant based diet on the Internet and documentaries. There are other resources for wellness that you can also benefit from, such as the [facility] website, [email or web address] and includes Plant based and Mediterranean diet, yoga and meditation. Please avoid all dairy products. You could use non-dairy milk such as Flax milk, Cashew milk, [place] milk, Rice milk, Oat milk or Hemp milk, instead. It is very important to avoid all: refined sugars (including high fructose syrup), refined carbohydrates, any artificial sweeteners and artificial preservatives, and soda and heavily processed food. Insure adequate hydration; drink at least 6 to 8 cups of water daily, certain people need less or more. Examples of Smoothies: Every morning you can start your day with a healthy natural anti-inflammatory smoothie, for example, you can blend: fresh or frozen sweet cherries, half a root of turmeric (1 to 2 inches), banana, blue berries, walnuts, few leaves of kale, add flax milk (or almond milk), and enjoy. You could add half an avocado if you like it smoother. If you do not tolerate walnuts, you can use flax seeds, breanna seeds or hemp seeds instead. If you do not like plant based milk, you can use coconut water or plainwater instead. Other smoothies, including green smoothies, are also very healthy and highly anti-inflammatory. Forexample fruits (such as banana or frozen stan or pineapple) and add significant amount of leafy greens, then add water or coconut water and blend until smooth. You can also add turmeric in this recipe. GENERAL INFORMATION ON BONE HEALTH : -Bone Density testing (DXA scan) as recommended. -Vitamin D supplementation is recommended, unless blood levels are sufficient. Recommended daily dose of 1000 to 2000 IU total a day, or the dose necessary to achieve a Vitamin D25-OH blood level of >31 and preferably closer to 40-60 ng/mL. Vitamin D pills are available over the counter. -Recommended daily dose of calcium: 1200mg total a day in divided doses. Calcium is usually sufficient in our regular diet, also available in multivitamins. Patients on certain dietary restrictions or those unable to meet their daily calcium by diety alone, may require calcium supplements. For patient with history of calcium kidney stones, Calcium Citrate would be the recommended supplement. It is recommended to avoid caclium carbonate supplement in this case, as these may increase risk of calcium kidney stones. The after visit summary has information on dietary calcium and instructions on reading calcium label and converting the %DV to mg. When you read a food label and you see calcium reported as DV %, add a zero and this will provide you with the approximate mg value of the calcium content in this food. For example, if a glass of almond milk is labeled as 40% calcium DV, then this contains 400 mg of calcium. For additional information, please see references provided. -Regular weight-bearing and muscle-strengthening exercise -Avoidance of tobacco smoking, excessive alcohol intake and excessive caffeine intake. -Fall and fracture precautions -It is recommend to continue regular follow up visits with your dentist every 6 months, and continue with good oral hygiene. Calcium: If your diet is sufficient in Calcium rich food, you will not need calcium supplement. Calcium Citrate is the preferred calcium if you have had kidney stones. Daily recommended calcium dose: 600mg twice a day with meals. Adequate calcium ingestion is essential for maintaining healthy bones. The recommended dose daily intake of calcium varies depending on individual needs but is usually between 1200 and 1500mg daily, preferably around 1200mg a day in divided dose (not all taken at once). This is equivalent to about five 8oz glasses of milk per day. Many foods are rich in calcium and they include: - Plant based, non-dairy, calcium rich products, include nuts, almond milk, beans, lentils - Vegetables and Fruit: bok-charlton, turnips, broccoli, kale, collards, - Dairy products: milk, cheese, yogurt, ice-cream - Fish products: canned salmon, sardines and shrimp - Cereals and nuts: almonds, sesame seeds, fortified cereals and oatmeal - Other foods: fortified orange-juice, figs, soybeans, other beans and eggs. If you have a low calcium diet and cannot tolerate calcium-rich foods, many supplements are available today. Your pharmacist can help you choose the one which best suits your needs. A few tips on supplements: - They should be easy to swallow - They should dissolve easily in cup of vinegar in < 15 minutes. - Count the ELEMENTAL calcium mgs. E.g. Calcium 499mg may have only 221mg of elemental Calcium. - Calcium citrate is the calcium supplement to take if you have had kidney stones and unable to meet your calcium requirements from food/diet alone. - There is such a variety today that it is best to bring in the bottle to your doctor to show them exactly what you are taking. Lastly too much calcium can be bad for you. Recent studies show extra supplements may increase yourrisk of kidney stones or cause high calcium levels in some people. You should discuss how much you should be taking with your doctor before starting them. Further Information is available from the following resources: www.nof.org (National Osteoporosis Foundation) http://www.osteo.org/osteolinks.asp National Institutes of Health: 0-597-761-BONE The Calcium Information Center: -Non-Dairy, Plant based Milk, can contain in1 glass up to 450 mg of calcium (300 to 450 mg) Exampled include Oat Milk, Flax Milk, [place] Milk, Cashew Milk, Soy Milk, Peas Milk general health and well being Examples of Food Sources of Calcium from NIH Food Milligrams (mg) per serving Percent DV* Soymilk, calcium-fortified, 8 ounces 299 30 [place] juice, calcium-fortified, 6 ounces 261 26 Tofu, firm, made with calcium sulfate, cup* 253 25 Tofu, soft, made with calcium sulfate, cup* 138 14 Dwggg-os-eeg cereal, calcium-fortified, 1 cup 100-1,000 10-100 Turnip greens, fresh, boiled, cup 99 10 Kale, raw, chopped, 1 cup 100 10 Kale, fresh, cooked, 1 cup 94 9 Vincentian cabbage, bok charlton, raw, shredded, 1 cup 74 7 Bread, white, 1 slice 73 7 Tortilla, corn, egrmj-mk-zbev/block, one 6 diameter 46 5 Tortilla, flour, iqsxe-uu-obje/block, one 6 diameter 32 3 Bread, whole-wheat, 1 slice 30 3 Broccoli, raw, cup 21 2 * DV = Daily Value. DVs were developed by the U.S. Food and Drug Administration to help consumers compare the nutrient contents among products within the context of a total daily diet. The U.S. Department of Agriculture s (USDA s) Nutrient Database Web site lists the nutrient contentof many foods and provides comprehensive list of foods containing calcium arranged by nutrient content and by food name. *Calcium content varies slightly by fat content; the more fat, the less calcium the food contains. * Calcium content is for tofu processed with a calcium salt. Tofu processed with other salts does not provide significant amounts of calcium. You could acces this information online at: http://ods..nih.gov/factsheets/Calcium-HealthProfessional/ Vitamin D: Vitamin D3= cholecalciferol, available over the counter. Dose recommended 800 to 1000 iu daily with a meal; Certain patients require 1517-7366 iu daily and in patients deficient in Vitamin D, they require higher dosages. Certain patient requires higher dose, depending on their Vit D blood levels. Vitamin D is essential for calcium metabolism. It is really a hormone produced mainly in your skin after exposure to sunlight. Vitamin D helps you absorb calcium from your stomach and kidneys and incorporates it into your bones. Studies show approximately 50% of [place] men and women are vitamin D deficient in the winter. Milder cases of vitamin D are usually asymptomatic so the only way to know you have a problem is to have a blood level checked. More severe cases can cause osteomalacia(a.k.a. rickets) which can result in bone pain, weak bones and several abnormal laboratory tests and also weak muscles (a.k.a. myopathy). When this happens, your bones lose a lot of their calcium stores as the body tries to regulate the calcium required by other tissues. Prolonged deficiency can lead to severe bone disorders and fractures. Unlike calcium, dietary sources of vitamin D are rare, limited to a few fish oils particularly cod-liver oil, other fortified foods and egg yolks. and most are unhealthy. Natural source of vitamin D is through sunshine. This is usually during juan ramon seasons, for example a 30 minute exposure to sunshine. Some people are unable to be exposed to the sun due to skin condition. Often supplementation isneeded. Many multivitamins contain some vitamin D and vitamin D alone preparations are now available in several forms. The recommended daily intake of vitamin D used to be 400 and 800 international units, however, it is now known that larger amounts are needed, as discussed above. Your doctor can prescribe prescription strength vitamin D for you if necessary, if you have marked deficiency or diseases of the liver or kidney. Supplementation in patients with severe deficiency can stabilize or improve bone mineral density and in frail elderly persons, may reduce their risk of falling. Additional Information is available from: www.nof.org (the national osteoporosis foundation) http://www.[facility].org/arthritis/osteo/info.htm http://ods.od.nih.gov/factsheets/vitamind.asp National Institutes of Health: 7-882-443-BONE [facility] Calcium Information [place]: At the [facility], we work as a team for your care, along with Nurse Practitioners, PhysicianAssistants, Nurses and Medical Assistants. It is a privilege and honor to serve you. Thank you for choosing [facility] for your healthcare. Sincerely, Eric Hauser MD [facility] History of Present illness Narrative* Eric Nina MD - 05/09/2022 1:05 PM EDT FOLLOW UP VISIT Patient's Name: Joy (prev last name Ronny)- Angel (newly ) [place] [address] PCP: Mack Uribe MD [address] [place] [address] Consult Requested by: Julio Neri MD (C) [address] [place] [address] Accompanied by: no one This consult was requested by Valery Rodriguez* for my medical opinion regarding the rheumatologic evaluation of the patient's elevated CRP Multiple joint pain and fatigue problems, and my final recommendations will be communicated to the requesting health care provider by way of the shared medical record for internal providers or letter via the [employer] for external providers. Interim history : Doing well today No gout attack No tophi No jt swelling, outside of knee sprain/injury No podagra No significant am gelling Remote past: reports had surgery to b/l feet for PF No skin rash No subcut nodules or tophi She continues to do well off Uloric We had stopped Uloric, was on 40 mg once daily, as urate levels low with dietary changes and colchicine 1 tb once daily Initially colchicine was giving her stomach upset, states now tolerates it Medications well tolerated (She is unable to take allopurinol, allergic to it) Taking Turmeric supplement twice daily Uric Acid Date Value Ref Range Status 03/15/2019 5.3 2.5 - 6.6 mg/dL Final Component Uric Acid Latest Ref Rng & Units 2.5 - 6.6 mg/dL 05/07/2017 10.9 (H) 06/11/2017 8.0 (H) 11/06/2017 7.0 (H) 11/28/2017 7.1 (H) 12/25/2017 3.3 09/10/2018 2.9 10/21/2018 5.4 12/31/2018 6.4 03/15/2019 5.3 Answers submitted by the patient for this visit: Review of Systems Rheumatology (Submitted on 05/08/2022) Fever : No Recent Unintentional Weight Change: Yes, lost from size 20 to size 16, intentional Eye Pain: No Eye Redness: No Eye Dryness: Yes- not new SSa, SSb negative 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 gld swelling Chest Pain: No Leg Swelling: No A Cough: No Shortness of Breath: No Pain with Breathing: No Heartburn: No Abdominal Pain: No Diarrhea: No Black Tarry Stools: No Blood in Urine: No Pain or Burning with Urination: No Joint Pain or Stiffness: Yes- left shoulder, RC Muscle Weakness: Yes Muscle Aches: Yes Joint Swelling: Yes- bone spur, no jt swelling Morning Stiffness in Joints: Yes- limited duration A Rash: No Skin Color Changes: No Hair Loss: Yes Nail Changes: No Headaches: No Numbness: Yes Swollen Glands: No Per Epic-Conflicting answers have been found for some questions. Other updates: Left shoulder stain, ?RC, hurts with lifting and is weak, may have had tear and medial epic, will follow up with her Orthop. surgeon. Previously: Since last visit, early 11/2018, hurt her knee going up the ladder, wonders if she twisted. Hurt her left knee and was unable to walk and it swelled immediately She saw her Orthopedic surgeon at , and had MRI States her Orthop surgeon did not drain the knee, but gave her cortisone injection, lasted only 3 days . She is in physical therapy States he advised her that if no benefit, will perform arthroscopic surgery. States the swelling is down, recurs at end of the day, depending if has been on her feet. MRI 11/26/2018, : Impression reported tric. osteoarthroses, small subcortical bone bruise/degen signal at medial femoral condyle, mild fraying of ant. free edge of post horn of med meniscus, no linear tear, grade 1 sprain of the prox medial collateral ligament, mod to lg effusion with mild component of synovitis. She reports improvement since 11/2018 States consuming more fruits and vegt. States has cut down by at least 50% on meats, for exampled, twice a wk Does not consume sea food Hydrating more with water, was not before Started yoga Very pleased with her progress Her urate continues to improve Her cholesterol and HbA1C have improved KP related to recent knee injury Patient Data reviewed with patient at this visit. Reported limitations and response on ROS and RAPID3 are not related to Rheumatology or Osteoporosis.The patient is following with their Primary care physician and other health care providers for their other health problems. Patient follows with Primary care physician and their other health care providers for their other health problems. Taking vitamin D: 2000 international units daily with food Uric Acid Date Value Ref Range Status 03/15/2019 5.3 2.5 - 6.6 mg/dL Final ALT Date Value Ref Range Status 11/22/2021 33 7 - 38 U/L Final Platelet Count Date Value Ref Range Status 11/22/2021 241 150 - 400 k/uL Final Creatinine Date Value Ref Range Status 01/24/2022 0.85 0.6 - 1.3 MG/DL Final 01/03/2022 0.90 0.58 - 0.96 mg/dL Final 11/22/2021 1.02 (H) 0.58 - 0.96 mg/dL Final 04/04/2021 0.70 0.58 - 0.96 mg/dL Final Vitamin D 25 Hydroxy (ng/mL) Date Value 10/21/2018 33.3 ] IMPRESSION: Arthritic changes likely representing osteoarthritis. 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: MAKEDA Transcribe Date/Time: Nov 28 2017 3:41P Dictated by : INEZ RAHMAN MD This examination was interpreted and the report reviewed and electronically signed by: INEZ RAHMAN MD on Nov 28 2017 3:42PM EST Results-Findings * * *Final Report* * * DATE OF EXAM: Nov 28 2017 10:02AM CHX [id number] - XR HAND 3V PA/LAT/OBL FLORENTIN / PROCEDURE REASON: multiple diagnoses * * * * Physician Interpretation * * * * TECHNIQUE: Bilateral hand series arthritis survey 4 images CLINICAL DATA: Bilateral hand pain, no injury. COMPARISON: None. RESULT: There is no acute fracture or dislocation. The joint spaces demonstrate arthritic changes with narrowing of the first carpal metacarpal joint space bilaterally left greater than right. There is symmetric narrowing involving the DIP joints bilaterally at multiple levels. There is mild narrowing of the interphalangeal joint space bilaterally. There is relative sparing of the PIP and MCP joints. There are no erosions or ulnar deviation. Consult note 11/06/2017 CC: pain knees and ankles HPI: Mrs. Hawthorne is a very nice 52 y.o. lady with reported PMHx of: HTN, CAD (s/p PTCA CARRI x2 09/2012), HPL, DM II, GERD, renal calculi (unknown type), asthma, pneumonia (2 times), tattoos (2006,2014), OAbil knees, WOLF has CPAP, Vit D def, CTS(right, [facility] care), recent diagnosis of gout (not crystalproven). Doing well today Reports last gout attack Apr 2017 Reports had pain in rt foot, top of foot, appeared red, swollen, warm to touch Reports her foot was hurting her around Mar and then another one in Apr 2017, [facility] was given colchicine, it went away . [facility] Primary care physician stopped and then resumed diuretic at lower dose and when resumed it she experienced a gout attack. She reports colchicine well tolerated for Apr gout attack was prescribed colchicine States was also prescribed indomethacin, took it for 2 days only. Reports felt improvement after the 3rd day. [facility] with Mar 2017 attack was not prescr the above, the diagnosis was not made then, took over the counter nsaid, and lasted 5 days. States that episode was not as bad as the one in Apr and did not have too much swelling. Denies tophi She reports her brother has gout She denies alcohol consumption Diet: eggs, toast, very little butter , peanut butter jelly, chicken, hamburger, potatoes, peas, fruits Advised on adequate hydration, states does. Reports chronic history of pains in jts: Knees mostly and ankles, states both pain and hard to move, worse in morning and with walking too long. She has seen Dr. Cao in remote past, and rheum evaluation was negative. [facility] takes Tylenol and helps for a while States in the past, has had knee pains and swelling and wonders if these could have been gout, but not diagnosed at the time. She has not had aspiration of synovial fluid. [facility] has gained 12-14 lbs in past year Her BMI >30 Body mass index is 35.43 kg/m . She was found to have mildly elevated CRP At time of her gout attack, her CRP was elevated, recheck when gout resolved was normal. Component Latest Ref Rng & Units 04/05/2017 05/07/2017 06/11/2017 CRP <0.9 mg/dL 2.1 (H) 0.8 Uric Acid 2.5 - 6.6 mg/dL 10.9 (H) 8.0 (H) Magnesium 1.7 - 2.3 mg/dL 2.2 Vitamin B12 211 - 946 pg/mL >2000 (H) Vitamin D 25 Hydroxy 31.0 - 80.0 ng/mL 69.7 WSR 0 - 20 mm/hr 15 Rheumatoid Factor <16 IU/mL <10 RHEUM. ROS: Joint pain: as above Joint swelling: knees in past, rt foot during gout attack Am stiffness: 15- 20 min. Low back pain: remote history of back injury from lifting and disc tore Dactylitis: no H/o precedent/frequent infection(s): no Enthesopathy/[place]'s/heel/plantar tenderness: yes and bilat achilles surgeries in the past, told had short tendons, history of PF resolved following AT surgeries; has calcan.spurs on x-rays. Skin thickening, psoriasis, photosensitivity, purpura: no; rivera easily in sun Nail changes: no Alpecia, patchy: no Eye inflammation: no SICCA: dry mouth; no gland swelling. Oral/nasal/genital ulcers: no GI problems-diarrhea/bleeding/IBD/Gluten intolerence/Dysphagia: no Raynaud's phenomenon/digital ulcers: no Organ inv-Serositis: no Lung disease/ILD: no Myopathy/proximal muscle weakness: no Abnormal Urine or urethritis: as above Renal disease: history of kidney stones, unknown type LENS EDGER/PNS disease: as above, CTS HEME-Cytopenias/LAD/Clots: no Fevers: no Fatigue: yes; has WOLF, not using CPAP PMR/GCA ROS: negative Patient denies history of Psoriasis, Rheumatic Fever, PUD, Liver Disease, Hepatitis , Kidney Disease, DM, PAD, Sinusitis, TB infection or exposure, Anemia, Seizures, Stroke, MS, Clots, Cancer, Thyroid Disease, Transfusions and Alcohol dependency. Other ROS: The remainder of the review of systems is negative. ALLERGIES: Nitrofurantoin Monohyd/M-Cryst, Allopurinol, Bactrim [Sulfamethoxazole], and Neurontin [Gabapentin] PMH: PAST MEDICAL HISTORY Diagnosis Date Asthma dx'd 15 yrs ago- has not been on medication Atherosclerotic coronary vascular disease 05/20/2015 Lexiscan perfusion normal, EF 68%; Echo normal; Cath 05/2014 Irregularies wiith 50% rca in-stent stenosis. 09/2012 RCA CARRI X2 to prox vessel Bradycardia CAD (coronary artery disease) Carpal tunnel syndrome Chest pain Colon polyp Cscope 05/29/14 w polyps, f/u 3 yrs. Depression Diverticulitis NARCISO (generalized anxiety disorder) HTN (hypertension) Hyperlipidemia Pneumonia Sleep apnea Suspected COVID-19 virus infection 03/04/2020 Vitamin D deficiency 04/09/2012 Miscarriages: No PATIENT REPORTS: Cardiac stress test:y, last stress test 2 yrs ago, states was normal Mammogram/Breast exam: y Pap smear: y Colonoscopy: y Bone Density:y History of Fractures: no Osteoporosis related fractures Height Loss: no IMMUNIZATION: Immunization History Administered Date(s) Administered COVID-19 original vaccine, age 12+ yr, monovalent (PFIZER-Kubi MobiNTZIPDIGS - SOTO TOP) 11/14/2021 COVID-19 original vaccine, age 12+ yr, monovalent (Pathogenetix-Kubi MobiNTZIPDIGS - PURPLE TOP) 10/22/2020 11/13/2020 05/20/2021 Influenza Seasonal Inj Quad Age 6 Mo - 64 Yrs 04/20/2017 05/04/2018 05/20/2019 05/25/2020 Influenza Seasonal Inj Quad Age 6 Mo-64 Yrs Pres Free 05/14/2021 Influenza Vaccine, Split-Non Spec 08/26/2012 PPD ([place]oux) 04/07/2016 Pneumovax 04/20/2017 Tdap (Age 7+) 04/07/2016 PSH: PAST SURGICAL HISTORY Procedure Laterality Date CARDIAC CATHETERIZATION HX 08/2012 stents x 2 COLECTOMY PARTIAL W/ANASTOMOSIS 2016 Sigmoidectomy COLONOSCOPY 05/29/2014 - repeat 3 years ECHO 05/20/2015 mildly dilated IVC HERNIA REPAIR HX Bilateral -hiatal hernia LEFT HEART CATH 05/12/2014 01/26/22- unremarkable LEXISCAN STRESS TEST PANEL 05/20/2015 NORMAL SALPINGO-OOPHORECTOMY COMPL/PRTL UNI/BI SPX 1994 Salpingo-oophorectomy TOTAL ABDOMINAL HYSTERECT W/WO RMVL TUBE OVARY 1990 Hysterectomy, DORENE SOCIAL HISTORY: Social History Tobacco Use Smoking status: Never Smokeless tobacco: Never Vaping Use Vaping Use: Never used Substance Use Topics Alcohol use: No Drug use: No FAMILY HISTORY: FAMILY HISTORY Problem Relation Age of Onset Colon Cancer Mother 53 Hypertension Mother Diabetes Mother Diabetes Father Coronary Artery Disease Father Multiple stents in early 60's, age 70 Hypertension Father Hypertension Brother Cancer Brother epithelioid of leg. Coronary Artery Disease Paternal Uncle Coronary Artery Disease Paternal Uncle Coronary Artery Disease Paternal Aunt Colon Cancer Maternal Grandmother other (htn) Maternal Grandmother other (lung cancer) Maternal Grandfather Patient reports FH of gout, psoriasis (brother), Osteoporosis (mother), parent with history of hip fracture (mother), OA, Cancer (colon cancer-mother). Patient reports no known FH of , Psoriatic Arthritis, IBD, RA, Lupus, Myositis, MS, Kidney Stones, TB infection exposed or Vasculitis TESTS: CBC Latest Ref Rng & Units 04/02/2021 04/04/2021 11/22/2021 01/24/2022 WBC 3.70 - 11.00 k/uL 5.74 7.40 5.35 - HEMOGLOBIN 11.8 - 15.4 g/dL 13.4 14.3 14.7 13.4 HEMATOCRIT 37 - 47 % 42.1 43.1 45.8 39.3 PLATELETS 150 - 400 k/uL 230 227 241 - ABS NEUT (ANC) 1.45 - 7.50 k/uL - 4.22 - - ABS LYMPH 1.00 - 4.00 k/uL - 2.20 - - CMP Latest Ref Rng & Units 04/04/2021 11/22/2021 01/03/2022 01/24/2022 NA 136 - 145 mmol/L - - - 143 SODIUM 136 - 144 mmol/L 142 141 - - K 3.5 - 5.1 mmol/L - - - 4.2 POTASSIUM 3.7 - 5.1 mmol/L 4.0 4.6 - - CHLORIDE 98 - 107 MEQ/L 105 104 - 103 CO2 22 - 30 mmol/L 26 28 - - GLUCOSE 74 - 99 mg/dL 111(H) 119(H) - - BUN 7 - 18 MG/DL 13 16 - 16 CREATININE 0.6 - 1.3 MG/DL 0.70 1.02(H) 0.90 0.85 CALCIUM, TOTAL 8.5 - 10.2 mg/dL 9.4 10.0 - - AST 13 - 35 U/L 40(H) 39(H) - - ALT 7 - 38 U/L 54(H) 33 - - ALKALINE PHOSPHATASE 34 - 123 U/L 133(H) 111 - - Uric Acid Latest Ref Rng & Units 09/10/2018 10/21/2018 12/31/2018 03/15/2019 URIC ACID 2.5 - 6.6 mg/dL 2.9 5.4 6.4 5.3 ESR, WSR Latest Ref Rng & Units 01/18/2012 05/28/2013 06/11/2017 WSR 0 - 20 mm/hr 9 17(H) 15 CRP Latest Ref Rng & Units 01/18/2012 04/05/2017 06/11/2017 CRP <0.9 mg/dL 1.4(H) 2.1(H) 0.8 CK Latest Ref Rng & Units 08/27/2012 08/29/2012 06/05/2015 11/22/2015 CK 30 - 220 U/L 123 168 205 84 RF and CCP Latest Ref Rng & Units 01/18/2012 03/12/2012 06/11/2017 RHEUMATOID FACTOR <16 IU/mL <7 - <10 CCP ANTIBODY, IGG <20 Units - <15 - Hepatitis Screen Latest Ref Rng & Units 03/12/2012 HEPBCOTOL NEGAT Negative HEPSABQ NEGAT Positive(A) HEPCABEIA NEGAT Negative HBSAGR NEGAT Negative TB Screen Latest Ref Rng & Units 04/10/2016 TBTEST 0 x 0 - 10 x 10 mm 0x0 Antibodies Latest Ref Rng & Units 03/12/2012 08/25/2012 11/06/2017 KAYLA NEGAT Negative - - KAYLA TITER NEGAT Negative - - KAYLA PATTERN - Not applicable for negative result. - - ANTI-SSA <1.0 AI - - <0.2 ANTI-SSB <1.0 AI - - <0.2 PT SEC 8.4 - 13.0 sec - 9.7 - PT INR 0.8 - 1.2 - 0.9 - Urinalysis Latest Ref Rng & Units 01/05/2017 12/12/2017 05/26/2020 04/04/2021 PROTEIN, URINE Negative Negative - Negative Negative PROTEIN UA (POCT) Negative mg/dL - 30(A) - - PROTEIN URINE-ED(POC) Negative - Negative mg/dL - - - - RBC, URINE 0 - 3 /HPF 0-3 - 0-3 0-3 Uric Acid URIC ACID Latest Ref Rng & Units 2.5 - 6.6 mg/dL 03/15/2019 5.3 12/31/2018 6.4 10/21/2018 5.4 09/10/2018 2.9 12/25/2017 3.3 11/28/2017 7.1(H) 11/06/2017 7.0(H) 06/11/2017 8.0(H) 05/07/2017 10.9(H) Creatinine Latest Ref Rng & Units 11/22/2021 01/03/2022 01/24/2022 CREAT 0.6 - 1.3 MG/DL 1.02(H) 0.90 0.85 Component Latest Ref Rng & Units 01/18/2012 03/12/2012 08/25/2012 08/29/2012 05/28/2013 06/05/2015 11/22/2015 Hep B Core Ab, Total NEGAT Negative Hep C Antibody IA NEGAT Negative Hep B Surface Ag NEGAT Negative Hep B Surface Ab, Qual NEGAT Positive (A) KAYLA NEGAT Negative KAYLA Titer NEGAT Negative KAYLA Pattern Not applicable for negative result. CK 30 - 220 U/L 194 168 205 84 MB 0.0 - 8.8 ng/mL 2.1 1.8 1.4 CK MB % 0.0 - 4.0 % 1.1 1.1 CK MB % not reported with CK <100 U/L. Rheumatoid Factor <20 IU/mL <7 CCP Antibody, IgG <20 Units <15 TSH 0.400 - 5.500 uU/mL 1.280 1.320 Impression IMPRESSION: Plantar and retrocalcaneal enthesopathy. No acute osseous injury. END OF IMPRESSION 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: PSCB Transcribe Date/Time: May 08 2017 8:51A Dictated by : TINO MOTLEY MD This examination was interpreted and the report reviewed and electronically signed by: TINO MOTLEY MD on May 08 2017 8:52AM EST Results-Findings * * *Final Report* * * DATE OF EXAM: May 07 2017 11:49AM CHX [id number] - XR FOOT 3V AP/LAT/OBL RT / PROCEDURE REASON: Pain in right foot * * * * Physician Interpretation * * * * XR FOOT 3V AP/LAT/OBL RT CLINICAL INDICATION: Pain in right foot COMPARISON: None RESULT: Moderate retrocalcaneal and mild plantar calcaneal enthesopathy. No acute fracture or malalignment is seen. Joint spaces are preserved. Component Latest Ref Rng & Units 05/07/2017 06/11/2017 11/06/2017 11/28/2017 12/25/2017 Uric Acid 2.5 - 6.6 mg/dL 10.9 (H) 8.0 (H) 7.0 (H) 7.1 (H) 3.3 Additional pertinent test results reviewed in medical chart PHYSICAL EXAM BP 128/75 Pulse 61 Resp 16 Wt 90.7 kg (200 lb) BMI 35.43 kg/m afebrile General Appearance: WD/WN, NAD. Appropriate grooming. SKIN: No rash, no psoriasis, no purpura, no ulcers, no skin thickening/tightness, no telangiectasias. HEENT: No patchy alopecia, normal temporal artery pulsations, non-tender, scalp non-tender, no conjunctival injection or icterus, no oral ulcers, no thrush, no parotid gland swelling, no nasal bridgecollapse, no cartilage swelling. NECK: neck supple w/o masses, no thyromegaly, no LAD. LUNGS: CTA, Good respiratory effort. HEART: RRR, - m/r/g EXTREMITIES: Adequate pulses b/l UE; No clubbing,discoloration,sclerodactyly, periungual erythema, digital ulcers, nail pitting, edema. MUSCULOSK: No joint deformities, no rheumatoid nodules, calcifications or tophi. Tend over med epic, without pain with wrist ext/flexion No erythema or swelling Swoll JTS: 0 Tend. JTS: 0 No podagra No clinical synovitis in the DIP's, PIP's, MCP's, wrists, elbows, shoulders, knees, ankles, midfoot, or toes. Shoulder exam: FROM on rt; impingement of left shoulder with a borderline arm drop sign Hip rom without pain LIMITATION of Motion of Joints: no Thoracic/Lumbar Spine: No percussion tenderness SLR:neg, sitting No instability in any upper or lower extremity joints. NEURO: Mental Status: alert and oriented x 3, cheerful, very pleasant CN II - XII grossly intact Motor: 5/5 proximally and distally b/l Sensory: intact to fine touch TENDER POINTS: 0/18 Gait: Normal w/o assistive devices Tone: normal IMPRESSION/DIAGNOSIS: M10.9 Gout with manifestations (primary encounter diagnosis) E79.0 Hyperuricemia, hx S46.012A Strain of left rotator cuff capsule, initial encounter Comment: Will follow up with her Orthopedic surgeon M77.02 Medial epicondylitis of left elbow Comment: Will follow with her Orthop. surgeon Gout well controlled Gout, clinical diagnosis not crystal proven, no collection of synov fluid for aspiration at this time hyperuricemia She has had very good response to colchicine. She has not been on urate lowering therapy. Her urate was very low on low dose uloric and we discontinued uloric. Her urate has been well controlled with dietary changes. I had discussed discontinuing Uloric trial, espec that urate levels are < 3 and with reported warnings on febuxostat. I have reviewed reports on risk of thromboses and CV events with Uloric (reported with higher dose of 80mg/d). She is allergic to Allopurinol (rash) She has done well off Uloric and her urate has remained <6 off Uloric. Will continue to monitor. There is no clinical evidence for Rheumatoid Arthritis or systemic rheum disease, outside of gout Left medial epicondylitis and RC strain, may have RC tear, sec. to work, mechanically induced She will follow up with her Orthopedic surgeon for that. Reviewed conserv and prev care She has history of vitamin D deficiency, corrected on supplement RECOMMENDATION/PLAN: Orders: Office Visit on 05/09/22 URIC ACID BLOOD Will obtain with her PCP other labs that include CBC, CMP in Aug 2022 -reviewed indication for above orders Gout medications: -colchicine, 0.6 mg once daily, and if needed twice daily Off urate lowering therapy, as controlling urate with diet; Will continue to monitor Risks, benefits, alternatives, reported side effects, indication, limitations/expectation of medication(s) were discussed with patient and patient wished to proceed. Per previous notes: Discussed with patient the nature of Gout, risk with hyperuricemia, clinical presentation and optimal management of acute gouty attack and [facility] therapy and indication for urate lowering agents. Discussed current up to date available management and fda approved medications for Gout and hyperuricemia. I also reviewed recent literature regarding reported CV risk and nephropathy with gout and hyperuricemia. I reviewed with patient up to date recommendations for the mgt of Gout and hyperuricemia and ACR guidelines. Discussed indication for urate lowering agent, reviewed FDA approved pharmac rx for gout. I explained that for acute attacks, it is important to take colchicine within first day of attack, could take up to TID, if no benefit within 2 days to call us. We have discussed dietary and alcoholic influence on urate levels, metabolic syndrome, discussed triggering factors for Gout and advised patient to insure good hydration, avoid dehydration. Patient was pleased with counseling and education. Pt. in agreement and in understanding of plan. She has osteoarthroses of knees, internal derangement and recent strain, in PT and following with Orthopedics for that BMI>30; Has been improving wt Advised on conserv care and healthy lifestyle and foods with benefit to arthritis and anti-inflammatory I reviewed conservative care, wellness and healthy lifestyle, as well as the benefits of a whole foods plant based diet. I have had many patients experience significant relief in musculoskeletal pains and inflammatory arthropathy, by avoiding refined sugars and dairy and following whole foods plantbased diet. Additional time spent with patient on healthy lifestyle, healthy food and anti- inflammatory diet (with emphasis on whole plant based diet), avoiding refined carbs/sugars and processed food, appropriate exercise (stretching, cardio and strengthening), good sleep hygiene, stress mgt, and supplementing vital deficiencies and maintaining healthy wt and healthy BMI. Additional information provided with references and educational information. Bone Health Recommendations: -Bone Density is recommended after menopause and after age 55-60, sooner if patient has risk factors, sooner if on systemic steroid use of 3 months or more. -Vitamin D supplementation recommended, optimal dose is the dose necessary to achieve Vitamin D 25-OH blood level in range of 40-60 ng/mL. (Vitamin D supplement in international units, is the dose necessary to achieve a Vitamin D 25-OH blood level in range of 40-60 ng/mL). -Recommended daily dose of calcium: 1200mg total a day in divided doses. Calcium from dietary sources, if not sufficient, or if with h/o calcium nephrolithiasis would recommend Calcium Citrate supplement, as it is recommended to avoid caclium carbonate products, which as main dietary calcium source. The after visit summary has information on dietary calcium and instructions on reading calcium label and converting the %DV to mg. -Regular weight-bearing and muscle-strengthening exercise -Avoidance of tobacco smoking, excessive alcohol intake and excessive caffeine intake. -Fall and fracture precautions -Continued regular dental follow up visits and good dental/gum care Discussed medication dosage, usage, goals of therapy, and side effects. Additional time spent on interpretation of test results. Available laboratories an their clinical significance were reviewed with the patient. Radiographs were reviewed at todays visit. Additional time was spent outside of the patient visit to review records. today. Assessment and plan were discussed with the patient. Additional time spent with the patient to discuss their questions. Additional time spent with the patient devoted to discussing treatment strategy, planning, implementation and preventive health and wellness recommendations. I spent a total of 33 minutes on the date of the service which included preparing to see the patient, [id number] patient care, completing clinical documentation, obtaining and/or reviewing separately obtained history, performing a medically appropriate examination, counseling and educating the pat ient/family/caregiver, ordering medications, tests, or procedures, communicating with other HCPs (not separately reported), independently interpreting results (not separately reported), communicatingresults to the patient/family/caregiver, and care coordination (not separately reported). Follow up: Summer 2022 for Gout, sooner if needed The patient follows with her Orthopedic surgeon, PT, and Primary care physician for her other health problems Recommendations to share with referring physician/Primary care physician : Dear Dr. Uribe : I had the pleasure of seeing your patient, Ronny. I have enclosed a copy of my clinic note with my assessment and recommendations for this patient. Recommendations for your consideration as you deem necessary: -Patients with hyperuricemia and gout are at increased risk for metabolic syndrome and CV disease. -Recommend considering the addition of preventive care, mind and body health and wellness and non-pharmacologic and integrative medicine approach. Consider regular graded aerobic exercise, stretchingexercises (could consider yoga or ke chi), strengthening as indicated, continue with healthy diet,maintaining healthy body weight and BMI, improve sleep hygiene/quality and restorative sleep, Vitamin D supplementation and maintaining normal vitamin D blood levels, may consider osteopathic or chiropractic gentle manipulation, and acupuncture procedures, aquatic pool therapy, could consider PT/HEP, massage therapy, stress relief and mind and spirit and psychotherapy. Research has shown that toomuch stress may have a significant impact on ones health and wellness. Also inadequate sleep and overweight may impact fatigue, pain, in addition to increased cardiovascular and cancer risk. Recommend management of any psychiatric illnesses, depression and stress with Primary care physician, Psychiatrist and psychotherapy, as deemed necessary. -Continuous follow up with Primary care physician for cardiovascular disease prevention, for age appropriate cancer screening and routine health maintenance and wellness, and infection precautions and age appropriate immunization recommended. -I have advised on wellness and the whole plant based diet, as they have been shown to prevent and reverse hear disease, prevent and treat diabetes mellitus II, decrease risk of CV disease, diabetes,metabolic syndrome, HTN, hyperlipidemia, obesity, bone loss, certain auto-immune, inflammatory, skin disorders, certain cancers, macular degeneration, certain degenerative disorders, multiple other chronic health disorders, and be in favor of general health and wellness. Thank you for allowing me to participate in the care of your patient. Eric Hauser MD cc Mack Uribe MD documented [facility] Miscellaneous Notes* Telephone Encounter - Mack Uribe MD - 04/21/2022 3:26 PM EDT The following approved medication requests have been transmitted electronically. Requested Prescriptions Signed Prescriptions Disp Refills estradiol (ESTRACE) 0.01 % (0.1 mg/gram) vaginal cream 42.5 g 3 Sig: Use 1 gram vaginally daily for 2 weeks followed by 1 gram twice weekly Mack Uribe MD * Telephone Encounter - María Elena Ladd LPN - 04/21/2022 12:57 PM EDT Called patient and states she is waiting for the Estradiol and pharmacy needed clarification on howmany grams patient to apply. Please advice and send new script to [facility]. documented in [facility]22 Miscellaneous Notes* Telephone Encounter - Mack Uribe MD - 04/18/2022 12:37 PM EDT The following approved medication requests have been transmitted electronically. Requested Prescriptions Signed Prescriptions Disp Refills estradiol (ESTRACE) 0.01 % (0.1 mg/gram) vaginal cream 42.5 g 3 Sig: Use one application daily for 2 weeks followed by twice weekly Mack Uribe MD documented in this encounterMartin [facility]06-16-[facility]22 Discharge summary Author Nathalie West [facility] January 26, 2022 1:45pm Note Date/Time January 26, 2022 1:40 pm [facility] [address] [place] [address] Discharge Summary Signed Patient: Joy Ortiz MR#: [id number] : 1965 Acct:[id number] Age/Sex: 56 / F Adm Date: 2 Loc: Room: Attending Dr: Nathalie West DO Copies to: MD Nathalie Valero, DO~ Providers Date of Discharge: 01/26/22 Discharging Provider: Nathalie West Primary Care Provider: Mack Uribe Discharge Diagnosis Final Diagnosis Final Discharge Diagnosis: 1. ASHD 2. History of PCI 3. Essential hypertension 4. Angina pectoralis Summary Hospital Course Hospital course: Outpatient cardiac catheterization performed for recurrent class III-IV angina pectoris, with given history of prior PCI. Catheterization revealed normal leftcoronary artery system, widely patent ostial/proximal RCA stent with normal leftventricular function Condition Condition at Discharge: Stable Status at Discharge Functional status at discharge: independent ambulation Overall status at discharge: patient is back to baseline Time Spent with Patient Time spent providing/coordinating discharge services (# min): 15 Surgeries and Procedures Operation Date: 01/26/22 12:15 Left heart catheterization Complications Complications: None Exam Physical Exam Vital Signs: Temp Pulse BP Pulse Ox 98.2 F 60 151/89 H 100 01/26/22 10:38 01/26/22 10:38 01/26/22 10:38 01/26/22 10:38 Discharge Plan Discharge Plan Patient Disposition: Home Diet: Low-Cholesterol Additional Instructions: DISCHARGE INSTRUCTIONS FOR CARDIAC TRIM OPERATOR PHONE NUMBER OF YOUR PHYSICIAN: [phone] PROCEDURE: Heart Cath The following instructions have been prepared to help you care for yourself, or be cared for upon your return home. 1. You were given conscious sedation. Do not operate a vehicle, power tools, make important decisions, or drink alcohol for 24 hours. You might be drowsy orlight headed. Return to the Emergency Room if you have trouble breathing, walking or nausea and vomiting. 2. FOR BLEEDING: Apply continuous pressure to the site and call 911. 3. Operative Site Care: Keep the dressing clean and dry. You may change the dressing only if soiled or wet. You may remove the dressing the following morning. You may wash over the puncture site in the shower. If the puncture site is at the wrist no soaking for 3 days. Some bruising or slight swelling may be present. -Signs of infection are redness, warmth, swelling, getting more sore, colored drainage, fever or chills. -Should the arm or leg become cold, numb, blue or white, call the bobcat driver/labor immediately. 4. ACTIVITY: You are advised to go directly home from the hospital. Restrict your activities for the rest of the day. Resume light or normal activities tomorrow. Do not engage in any activity that will stress the puncture site. Avoid heavy lifting (over 15 lbs.), straining or bending at the catheter site for 48 hours after discharge. If the puncture site is at the wrist do not manipulate wrist for 24 hours and no lifting more than 3 lbs for 3 days. 5. DIET:You may eat your regular diet when you desire. 6. MEDICATIONS: Resume your daily prescription schedule. Prescriptions may be sent with you if needed. Use as directed. When taking pain medications, you may experience dizziness or drowsiness. Do not drink alcohol or drive when taking pain medications. 7. If you should experience episodes of angina e.g. chest discomfort, heaviness, tightness, pressure, burning, with or without radiation to the neck, jaws, arms, or back- Use 1 Nitrostat under your tongue every 5-10 minutes, and up to 3 tablets. If no relief- Call 911 and go to the nearest Emergency Room. -Notify the office for recurrent angina, chest pain or other concerns. You may NOT drive yourself home! Follow the medication instructions provided on your discharge. If the dosages and instructions on this sheet differ from the dosage and instructions on the bottle, follow the instructions on the bottle. [facility] is not responsible for incorrect prescription information provided by thepatient during their visit. Do not stop your medications without consulting your health care provider. Please take the list with you to your next doctor's appointment. Prescriptions: Continued nebivolol [Bystolic] 10 mg Tablet 10 mg PO QHS RF: 0 losartan 25 mg Tablet 25 mg PO QHS RF: 0 rosuvastatin [Crestor] 40 mg Tablet 40 mg PO QHS RF: 0 nitroglycerin 0.2 mg/hr Patch 24 Hour 1 ea transdermal DAILY@0600 30 Days Qty: 30 RF: 6 nitroglycerin 0.4 mg Tablet, Sublingual 0.4 mg sublingual Q3MIN PRN (Reason: Angina) RF: 0 nebivolol 10 mg tablet 20 mg PO QAM RF: 0 Align 4 mg Capsule 1,500 mmu cells PO DAILY RF: 0 colchicine [Mitigare] 0.6 mg Capsule 0.6 mg PO QHS RF: 0 Stool Softner 1 tab PO DAILY PRN (Reason: Constipation) RF: 0 No Action aspirin 81 mg Tablet,Delayed Release (Dr/Ec) 81 mg PO DAILY RF: 0 Follow Up: Nathalie West DO [Active Staff - D.O.] - Mack Uribe MD [Primary Care Provider] - Documented By: Nathalie West DO 01/26/22 1338 Signed By: <Electronically signed by Nathalie West DO> 01/26/22 1345 [facility] Work Phone: 1(821) 285-149406-16-2022 [facility] Miscellaneous Notes* Telephone Encounter - Mack Uribe MD - 01/26/2022 10:34 AM EDT Disability form signed and returned * Telephone Encounter - Ryann Fu RN - 01/25/2022 10:13 AM EDT 01/20/2022 My chart message attachment [employer] Application forms printed. Please wait for reply to verify if these are the correct forms patient needs filled out. documented in this encounterMartin Memorial Hospital06-16-2022 Hospital Discharge instructions Additional Instructions DISCHARGE INSTRUCTIONS FOR CARDIAC TRIM OPERATOR PHONE NUMBER OF YOUR PHYSICIAN: [phone] PROCEDURE: Heart Cath The following instructions have been prepared to help you care for yourself, or be cared for upon your return home. 1. You were given conscious sedation. Do not operate a vehicle, power tools, make important decisions, or drink alcohol for 24 hours. You might be drowsy or light headed. Return to the Emergency Room if you have trouble breathing, walking or nausea and vomiting. 2. FOR BLEEDING: Apply continuous pressure to the site and call 911. 3. Operative Site Care: Keep the dressing clean and dry. You may change the dressing only if soiled or wet. You may remove the dressing the following morning. You may wash over the puncture site in the shower. If the puncture site is at the wrist no soaking for 3 days. Some bruising or slight swelling may be present. -Signs of infection are redness, warmth, swelling, getting more sore, colored drainage, fever or chills. -Should the arm or leg become cold, numb, blue or white, call the bobcat driver/labor immediately. 4. ACTIVITY: You are advised to go directly home from the hospital. Restrict your activities for the rest of the day. Resume light or normal activities tomorrow. Do not engage in any activity that will stress the puncture site. Avoid heavy lifting (over 15 lbs.), straining or bending at the catheter site for 48 hours after discharge. If the puncture site is at the wrist do not manipulate wrist for 24 hours and no lifting more than 3 lbs for 3 days. 5. DIET:You may eat your regular diet when you desire. 6. MEDICATIONS: Resume your daily prescription schedule. Prescriptions may be sent with you if needed. Use as directed. When taking pain medications, you may experience dizziness or drowsiness. Do not drink alcohol or drive when taking pain medications. 7. If you should experience episodes of angina e.g. chest discomfort, heaviness, tightness, pressure, burning, with or without radiation to the neck, jaws, arms, or back- Use 1 Nitrostat under your tongue every 5-10 minutes, and up to 3 tablets. If no relief- Call 911 and go to the nearest Emergency Room. -Notify the office for recurrent angina, chest pain or other concerns. You may NOT drive yourself home! Follow the medication instructions provided on your discharge. If the dosages and instructions on this sheet differ from the dosage and instructions on the bottle, follow the instructions on the bottle. [facility] is not responsible for incorrect prescription information provided by the patient during their visit. Do not stop your medications without consulting your health care provider. Please take the list with you to your next doctor's appointment.[facility] Work Phone: [phone]) 642-203706-10-2022 History of Present illness Narrative* Mack Uribe MD - 01/20/2022 4:28 PM EDT 4:29 PM VIRTUAL VISIT PROGRESS NOTE This is a virtual visit using [employer] video visit. It required patient-provider interaction for themedical decision making as documented below. Joy Ortiz is a 56 year old female seen for chief complaints of follow up of COVID nd to have forms completed Diagnosed with COVID on 01/15, and admitted for 24 hours Still has runny nose States she was told that she should return to work only after being cleared by Cardiology Her Seismograph Helper is , who saw her in the ER She will follow up with is on 01/26, for a heart cath She still feels lightheaded, but denies chest pain or shortness of breath HISTORY REVIEWED (electronic chart updated): PAST MEDICAL HISTORY Diagnosis Date Asthma dx'd 15 yrs ago- has not been on medication Atherosclerotic coronary vascular disease 05/20/2015 Lexiscan perfusion normal, EF 68%; Echo normal; Cath 05/2014 Irregularies wiith 50% rca in-stent stenosis. 09/2012 RCA CARRI X2 to prox vessel Bradycardia CAD (coronary artery disease) Carpal tunnel syndrome Chest pain Colon polyp Cscope 05/29/14 w polyps, f/u 3 yrs. Depression Diverticulitis NARCISO (generalized anxiety disorder) HTN (hypertension) Hyperlipidemia Pneumonia Sleep apnea Suspected COVID-19 virus infection 03/04/2020 Vitamin D deficiency 04/09/2012 PAST SURGICAL HISTORY Procedure Laterality Date CARDIAC CATHETERIZATION HX stents x 2 COLECTOMY PARTIAL W/ANASTOMOSIS 2017 Sigmoidectomy COLONOSCOPY 05/29/14 - repeat 3 years ECHO 05/20/15 mildly dilated IVC HERNIA REPAIR HX Bilateral -hiatal hernia LEFT HEART CATH 05/12/14 LEXISCAN STRESS TEST PANEL 05/20/15 NORMAL SALPINGO-OOPHORECTOMY COMPL/PRTL UNI/BI SPX 1994 Salpingo-oophorectomy TOTAL ABDOMINAL HYSTERECT W/WO RMVL TUBE OVARY 1989 Hysterectomy, DORENE FAMILY HISTORY Problem Relation Age of Onset Colon Cancer Mother 53 Hypertension Mother Diabetes Mother Diabetes Father Coronary Artery Disease Father Multiple stents in early 60's, age 70 Hypertension Father Hypertension Brother Cancer Brother epithelioid of leg. Coronary Artery Disease Paternal Uncle Coronary Artery Disease Paternal Uncle Coronary Artery Disease Paternal Aunt Colon Cancer Maternal Grandmother other (htn) Maternal Grandmother other (lung cancer) Maternal Grandfather Social History Tobacco Use Smoking status: Never Smoker Smokeless tobacco: Never Used Vaping Use Vaping Use: Never used Substance Use Topics Alcohol use: No Drug use: No Current Outpatient Medications Medication Sig nebivolol (BYSTOLIC) 10 mg tablet TAKE 2 TABLETS (20 MG) IN THE MORNING AND 1 TABLET (10 MG) IN THEEVENING rosuvastatin (CRESTOR) 40 mg tablet Take 1 tablet by mouth daily at bedtime. losartan (COZAAR) 25 mg tablet Take 1 tablet by mouth once daily. sertraline (ZOLOFT) 100 mg tablet TAKE 1 TABLET DAILY (Patient not taking: Reported on 12/14/2021) nitroglycerin sublingual (NITROQUICK) 0.4 mg SL tablet DISSOLVE 1 TABLET UNDER THE TONGUE NEEDEDFOR CHEST PAIN sucralfate (CARAFATE) 1 gram tablet Take 1 g by mouth four times daily. MITIGARE 0.6 mg capsule TAKE 1 CAPSULE TWICE A DAY (TAKE 1 CAPSULE ONCE DAILY AND IF NEEDED CAN INCREASE TO TWICE A DAY INSTRUCTED) aspirin, enteric coated (ECOTRIN LOW STRENGTH) 81 mg EC tablet Take 1 tablet by mouth once daily. pantoprazole DR (PROTONIX) 40 mg tablet TAKE 1 TABLET DAILY (Patient not taking: Reported on 12/14/2021) No current facility-administered medications for this visit. ALLERGIES Allergen Reactions Allopurinol Rash patient reported in Home Inventory S[pecialists message noted on November 21, 2017 Bactrim [Sulfametho* Hives Neurontin [Gabapent* Other: See Comments Mouth sores REVIEW OF SYSTEMS: GENERAL: feeling well without fatigue, no recent change in weight RESPIRATORY: no cough, no wheezing or shortness of breath CARDIOVASCULAR: no chest pain, no palpitations PHYSICAL EXAMINATION: VIDEO EXAM: (if completed, performed via video enabled technology) GENERAL: alert and appropriate, in no distress, well-hydrated, well nourished and happy, smiling, interactive RESPIRATORY: breathing non-labored NEUROLOGIC: no cerebral deficits noted and no obvious deficit ASSESSMENT: PLAN: (U07.1) COVID-19 (primary encounter diagnosis) (I25.10) Coronary artery disease involving sitka coronary artery of sitka heart without angina pectoris Continue supportive care Excused from work till 01/26/2022 There are no Patient Instructions on file for this visit. Mack Uribe MD documented in this encounterMartin Memorial Hospital06-06-2022 History and physical note Author Devin Rodriguez [facility] January 16, 2022 12:41am Note Date/Time January 16, 2022 12:41 am [facility] [address] [place] [address] Hospitalist H&P Signed Patient: Joy Ortiz MR#: [id number] : 1965 Acct:[id number] Age/Sex: 56 / F Adm Date: 2 Loc: Room: [address] [place] [address] Type : ADM IN Attending Dr: Devin Rodriguez MD Copies to: NON STAFF Devin Rodriguez MD~ HPI DATE OF EXAMINATION: 01/16/22 CHIEF COMPLAINT: Chest pain HISTORY OF PRESENT ILLNESS: This is a 56-year-old female with history of hypertension, hyperlipidemia, CAD status post stents, who is presenting to the emergency room today with chest pain, symptoms started this afternoon, patient went to work earlier today and she came back she was not feeling well, he was feeling tired and fatigued that she started having chest pain which she described as pressure-like radiating to her left arm and back. The patient was also complaining from diaphoresis. She denied any shortness of breath, cough, nausea or vomiting. She does report history of CAD and stents, left heart cath done in 2013 she had 2 stents and then another left heart cath done in 2016 which showed moderate stenosis not requiring any stents at that time. Patient was also complaining from headache for that reason she refused taking nitroglycerin. In the ED she was noted to have low-grade fever. EKG showed T wave inversion in inferior leads. Troponin was within normal limit. She does have positive for COVID-19, she reported being vaccinated and has not been infected before Review of Systems Review of Systems All other systems reviewed & are negative unless noted below or in HPI PMFSH Vaccinated for COVID-19?: Yes Medical History (Updated 01/16/22 @ 00:38 by Devin Rodriguez MD) Arterial stent thrombosis CARDIAC STENTS X2. Ramirez esophagus Coronary artery disease Diverticula of intestine Hernia Hypertension Surgical History History of hernia repair Family History (Updated 01/16/22 @ 00:36 by Devin Rodriguez MD) Other CAD (coronary artery disease) Social History Smoking Status: Never smoker Substance Use Type: None Meds Medications and Allergies Allergies allopurinol Adverse Reaction (Verified 01/15/22 19:01) Unknown Reaction Home Medications aspirin 81 mg tablet,delayed release 81 mg PO DAILY 05/27/21 [History Confirmed 05/27/21] colchicine 0.5 mg tablet 0.5 mg PO DAILY 05/27/21 [History Confirmed 05/27/21] hydrocodone 5 mg-acetaminophen 325 mg tablet 1 tab PO Q6H PRN 3 Days #10 tab 05/27/21 [Rx] losartan 25 mg tablet 25 mg PO DAILY 05/27/21 [History Confirmed 05/27/21] nebivolol 10 mg tablet (Bystolic) 10 mg PO BID 05/27/21 [History Confirmed 05/27/21] ondansetron 4 mg disintegrating tablet 4 mg PO Q8H PRN #10 tab 05/27/21 [Rx] pantoprazole 40 mg tablet,delayed release (Protonix) 40 mg PO BID #60 tab 05/27/21 [Rx] rosuvastatin 40 mg tablet (Crestor) 40 mg PO DAILY 05/27/21 [History Confirmed 05/27/21] sucralfate 1 gram tablet (Carafate) 1 g PO QAC 05/27/21 [History Confirmed 05/27/21] sucralfate 1 gram tablet (Carafate) 1 gm PO ACHS #60 tab 05/27/21 [Rx] Exam Physical Exam Vital Signs: Temp Pulse Resp BP Pulse Ox 98.6 F 61 15 116/63 97 01/15/22 23:00 01/15/22 23:00 01/15/22 23:00 01/15/22 23:00 01/15/22 23:00 Narrative: General: Patient is alert and awake, laying comfortably in bed, no signs of distress HEENT: Head atraumatic normocephalic, moist mucous membrane, Normal nose and ears, no throat lesions, normal conjunctiva. neck: Supple, no masses, no lymphadenopathy CVS: Regular rate and rhythm, no added sounds or murmurs RES: Clear to auscultation bilaterally, symmetric expansion, no distress ABD: Soft, not distended, no tenderness, positive bowel sounds, no palpable masses EXT: Moves all, no restriction of movement, no calf tenderness, no edema NEURO: Alert, oriented by 3, normal speech, normal motor function Skin: Dry, intact, no rashes or lesions MARIA DE JESUS Risk Score MARIA DE JESUS Risk Score Predictor Historical: 3 or more Risk Factors: FHx,HTN,elevated cholesterol,DM,active smoker and ASA use in Past 7 Days Presentation: Recent (>/=24hr) Angina Score Risk Score (0-7): 3 Results Lab Results Labs: Laboratory Last Values Corrected WBC 7.2 X10E3/uL (3.8-11.6) 01/15/22 19:17 Uncorrected WBC Count 7.2 x10E3/uL (4.5-11.0) 01/15/22 19:17 RBC 4.64 x10E6/uL (3.60-5.00) 01/15/22 19:17 Hgb 14.2 g/dL (11.8-15.4) 01/15/22 19:17 Hct 42.0 % (34.0-46.4) 01/15/22 19:17 MCV 90.5 fl (80-100) 01/15/22 19:17 MCH 30.5 pg (24.7-34.3) 01/15/22 19:17 MCHC 33.7 g/dL (32.0-35.0) 01/15/22 19:17 RDW 13.0 % (11.9-15.3) 01/15/22 19:17 Plt Count 207 x10E3/uL (150-450) 01/15/22 19:17 MPV 8.4 fl (6.3-10.7) 01/15/22 19:17 Neut % (Auto) 73.5 % (.) 01/15/22 19:17 Lymph % (Auto) 14.3 % (.) 01/15/22 19:17 [place] % (Auto) 8.3 % (.) 01/15/22 19:17 Eos % (Auto) 2.8 % (.) 01/15/22 19:17 Baso % (Auto) 1.1 % (.) 01/15/22 19:17 Neut # (Auto) 5.3 x10E3/uL (1.8-7.7) 01/15/22 19:17 Lymph # (Auto) 1.0 x10E3/uL (1.00-4.8) 01/15/22 19:17 [place] # (Auto) 0.6 x10E3/uL (0.0-0.8) 01/15/22 19:17 Eos # (Auto) 0.2 x10E3/uL (0.0-0.45) 01/15/22 19:17 Baso # (Auto) 0.1 x10E3/uL (0.0-0.2) 01/15/22 19:17 Nucleated RBC % (auto) 0.0 % (0-0.5) 01/15/22 19:17 PT 11.5 Seconds (9.0-12.9) 01/15/22 19:17 INR 1.0 01/15/22 19:17 APTT 30.3 Seconds (25.1-36.5) 01/15/22 19:17 D-Dimer Quant (PE/DVT) 422 ng/mL (0-243) H 01/15/22 19:17 PHA Creatinine Clear 61.19 01/15/22 19:17 Sodium 138 mmol/L (136-146) 01/15/22 19:17 Potassium 3.7 mmol/L (3.5-5.1) 01/15/22 19:17 Chloride 102 mmol/L (95-114) 01/15/22 19:17 Carbon Dioxide 25.1 mmol/L (22.0-30.0) 01/15/22 19:17 BUN 17 mg/dL (9-23) 01/15/22 19:17 Creatinine 1.07 mg/dL (0.44-1.03) H 01/15/22 19:17 Est GFR ( Amer) > 60 mL/Min 01/15/22 19:17 Est GFR (Non-Af Amer) 53 mL/Min 01/15/22 19:17 Glucose 106 mg/dL (70-100) H 01/15/22 19:17 Calcium 9.1 mg/dL (8.2-10.2) 01/15/22 19:17 Total Creatine Kinase 234 U/L (22-269) 01/15/22 19:17 CK-MB (CK-2) 2.6 ng/mL (0.6-6.3) 01/15/22 19:17 CK-MB (CK-2) Rel Index 1.1 % (0.00-2.50) 01/15/22 19:17 Troponin I High Sens 4 pg/mL (0-15) 01/15/22 19:17 B-Natriuretic Peptide 19.0 pg/mL (5-100) 01/15/22 19:17 SARS Antigen (LFIA) Positive (Negative) A 01/15/22 21:58 Microbiology Results Micro: Microbiology - Results from entire visit 01/15/22 21:58 Nasal SARS Antigen (LFIA) - Final ABG Interpretation ABG results: 01/15/22 19:17 D-Dimer Quant (PE/DVT) 422 H A&P - Hospitalist Assessment/Plan (1) Chest pain: (2) Coronary artery disease: (3) Hypertension: (4) COVID-19: Plan Chest pain in the setting of CAD This is a 56-year-old female with history of coronary artery disease and stents, she is presenting with chest pain, EKG showed T wave inversion in inferior leads, troponin is within normal limit, MARIA DE JESUS score is 3. Patient also tested positive for COVID-19, elevation of D-dimer noted at 422. Chest x-ray not show any acute findings. Currently not requiring any oxygen. The patient will be admitted for observation to rule out ACS. Continue aspirin, Crestor and nebivolol her home medication. Trend troponin and EKG. 2D echo. Consult cardiology In regards to COVID-19 infection, the patient has been vaccinated, not currently requiring any oxygen, D-dimer is 422, she will be started on subcu Lovenox 40 mg daily for DVT prophylaxis, he will be also initiated on antibiotic treatment with Paxlovid. Supportive treatment for fever with Tylenol Home medications reviewed Documented By: Devin Rodriguez MD 01/16/22 0033 Signed By: <Electronically signed by Devin Rodriguez MD> 01/16/[address] [facility] Work Phone: 1(205) 513-376506-02-2022 Miscellaneous Notes* Telephone Encounter - Katharine White MA - 01/12/2022 11:[address] Godinez, attempted to reach out to pt to confirm how she would like to receive script for both prescriptions, if printed and signed so she can lemon picker, or if just sent over to preferred pharmacy on file ([facility]). LVM to please call back and confirm. Sent [facility] [employer] message as well. documented in this encounterMartin [facility] Hospital06-01-2022 Miscellaneous Notes* Telephone Encounter - Mack Uribe MD - 01/11/2022 7:48 AM EDT The following approved medication requests have been transmitted electronically. Signed Prescriptions Disp Refills losartan (COZAAR) 25 mg tablet 90 tablet 3 Sig: Take 1 tablet by mouth once daily. ZACHARY: No Authorizing Provider: MACK URIBE MD * Telephone Encounter - María Elena Ladd LPN - 01/11/2022 7:12 AM EDT Last OV 12/14/21 documented in this encounterMartin Memorial Hospital05-31-2022 Miscellaneous Notes* Telephone Encounter - Trinidad Robledo - 01/10/2022 4:[address] Godinez, keeping appt as scheduled. Closing encounter * Telephone Encounter - James Nelson RN - 01/10/2022 12:02 PM EDT Patient calling Scheduled to see Dr Godinez in February Has seen PCP Twice for ongoing symptoms Denies any symptoms at this time Denies any new/worse symptoms since she has seen PCP On/Off Facial numbness on entire face Heart racing, Flutter feeling On/Off Feeling of Light headedness Blood sugars have been Normal per patient Drinks 4 (16 oz) bottles water daily About 64 oz per day Will try to increase 20-30 more oz per day Asking if Dr Godinez would want her to get any Labs or any Testing prior OV? Also if any earlier OV available with Dr Godinez? Call CELL [phone] Leave Detailed messages documented in this encounterMartin Memorial Hospital05-04-2022 History of Present illness Narrative* Eunice Pearl MD - 12/14/2021 3:07 PM EDT S: 56 year old female presents for follow-up 2 episodes of facial numbness, like after having novocaine, without associated pain/positional factor/weakness or speech difficulty, and resolved spontaneously after a few hours. 3 weeks ago had eaten and cleaned her house when later that morning she felt generalized numbness sensation in her face, no weakness/facial droop, checked her blood sugar was 168, and BP was normal (not low), no palpitations. She did nothing for symptoms and they resolved spontaneously. Most recent episode of paresthesia occurred likely 12/10, at the same time of the day in am, she wassitting crocheting when had facial numbness-?maybe mild dizziness, but this resolved spontaneously-her blood sugars was not low/nor her BP. Compliant w meds, no side effects, no new symptoms, and new medication changes, no prior head injury/no h/o neck pain/no h/o migraines. Last labs w diet controlled diabetes/prediabetes w a1c 11/22/21 6.0 Last 3 Encounter BP Readings: Date: BP: 12/14/2021 132/68 06/27/2021 137/75 06/13/2021 164/114 O: Blood pressure 132/68, pulse (!) 53, weight 88.5 kg (195 lb), SpO2 99 %. Body mass index is 34.54 kg/m . HEENT: Normocephalic/Atraumatic Lungs: Clear to auscultation CV: Regular rate and rhythm, no murmurs, no carotid bruits Abdomen: Soft, non-tender/no rebound, no palpable masses Extremities: No edema NEURO: Nonfocal CN 2-12 intact, no nystagmus, no provoked dizziness, drug discovery informatics specialist 5/5, FROM neck. A/P: 1. PARESTHESIAS - Discussion w patient, plan Neurology evaluation if recurs, neurologic evaluation today WNL. Unclear etiology discussed possible TIA? in differential, at this time does not seem c/w seizures or migraine w neurologic features. 2.Htn (Hypertension)/CAD/Diabetes - Compliant w meds, controlled, and has follow-up w PCP. Eunice Pearl MD documented in this encounterMartin Memorial Hospital05-04-2022 Instructions* Patient Instructions* Obdulia Bermeo MA - 12/14/2021 2:41 PM EDT [facility] FACTS LAB HOURS: [facility] is open from 7:30am to 6pm M-, open from 7:30am-5pm on Sunday and open 8am-12pm on Sunday. Closed on Sunday [facility] is open from 7:30am to 5pm Sunday-Sunday, 8am-12pm on Sunday, and closed on Sunday. Routine Lab Orders 45 days after they are entered. If your lab orders , you may be required to wait in the lab while they are reinstated Future Orders are lab tests to be completed on the EXPECTED date. These orders 45 days after the expected date. Standing Orders are recurring orders with an expiration date. The interval will indicate how often the test should be completed. Fasting Lab means nothing to eat or drink (except water) 10-12 hours before your blood is drawn. CT/MRI/IVP: If you have one of these radiology exams ordered along with blood work, please completethe blood work at least 24 hours prior to the scheduled exam. [facility] -- No appointment needed At the [facility], patients 2 years and older can get walk-in medical attention for common healthproblems including: Cold and flu symptoms Conjunctivitis Ear and throat infections Minor bumps and cuts Seasonal allergies Skin rashes Simple sprains and strains Sinus infections Urinary tract infections Upper respiratory tract infections Locations and Times [facility] - [address] [place] [address] - Sunday through Sunday 6 AM - 9 PM - Sunday and Sunday 8 AM - 4 PM For [facility] LOCATIONS, HOURS OF OPERATION and CURRENT WAIT TIMES, visit the following link fordetails. [email or web address]?dFR[types][0]=[facility] Department Jane Carvajal [facility] - [address] [address] [phone] Pharmacy Hours: Sunday through Sunday 8 am to 6 pm Opt in to receive text reminders for your appointments with [facility] health specialist today. To opt in, text [phone]. My Chart Schedule My Appointment enables you to view your established primary care provider's open schedule and book an appointment online in real-time. This feature is available in internal medicine, family medicine, or pediatrics at any of our [place] [facility] locations and main campus. documented in this encounterCleveland [id number] Miscellaneous Notes* Telephone Encounter - Delma Saul RN - 12/12/2021 6:37 PM EDT -please see nurse triage encounter 12/12/21. * Telephone Encounter - Layne Chavez RN - 12/12/2021 5:17 PM EDT Call placed to Pt, no answer. LVM with Pt requesting a return call to this office. Please transfer return call to nurse triage. * Telephone Encounter - Ryann Ballard APRN.DEEPAK - 12/12/2021 4:55 PM EDT Please triage for stroke symptoms and schedule an in office appt. Laura Jimenez documented in this encounterMartin [facility] Hospital04-09-2022 Miscellaneous Notes* Letter - Mammography Coordinator - 11/19/2021 9:55 AM EDT November 19, 2021 PID: [id number] Joy Hawthorne [address] [place], [place] [id number] Dear Ms. Hawthorne, We are pleased to inform you that the results of your recent breast imaging exam on 11/18/2021 are normal. Early detection of cancer is very important. We also understand recommendations regarding breast cancer screening are controversial. Please discuss with your primary care provider which strategy is best for you and whether a mammogram is right for you. Your imaging studies and report will be kept on file at [facility] as part of your permanent medical record and are available for your continuing care. Thank you for allowing us to help in meeting your health care needs. Sincerely, Dr. Yadav Interpreting Radiologist [facility] (Normal over 40) documented in this encounterMartin Memorial Hospital04-08-2022 History of Present illness Narrative* Haily Faria RT(R) - 11/18/2021 2:40 PM EDT Radiology Service Progress Note PATIENT NAME: Joy Hawthorne DATE OF SERVICE: November 18, 2021 TIME: 2:49 PM PATIENT IDENTITY VERIFICATION COMPLETED USING TWO (2) IDENTIFIERS: Name and Date of confirmedby patient verbally. FALL SCREENING: Has the patient had 2 falls in the last year or 1 fall with injury or currently using an Ambulatory Assistive Device (Walker, Cane, Wheelchair, Crutches, etc.)? No PATIENT GENDER DATA: Female. status: : No status: NO. PATIENT RELEVANT IMPLANT DATA REVIEWED: Yes RADIOLOGY DEPARTMENT: Mammography PERIPHERAL IV DATA: Not applicable SIGNED BY: RT Joyce(R) November 18, 2021 2:49 PM documented in this encounterMartin Memorial Hospital11-01-2021 NoteHNO ID: [id number] Author: Renita Chao (Road Worker) Service: Pharmacy Author Type: ? Type: Plan of Care Filed: 06/13/2021 6:02 PM Note Text: PHARMACY BEDSIDE DELIVERY SERVICE Patient Name: Joy Hawthorne The marked outpatient medications were filled and picked up at pharmacy. Medication List START taking these medications acetaminophen 325 mg tabletX Commonly known as: TylenoL Take 2 tablets by mouth every 6 hours for 7 days. CONTINUE taking these medications aspirin, enteric coated 81 mg EC tablet Commonly known as: ECOTRIN LOW STRENGTH Take 1 tablet by mouth once daily. CARAFATE 1 gram tablet Generic drug: sucralfate losartan 25 mg tablet Commonly known as: COZAAR TAKE 1 TABLET DAILY MITIGARE 0.6 mg capsule Generic drug: colchicine TAKE 1 CAPSULE TWICE A DAY (TAKE 1 CAPSULE ONCE DAILY AND IF NEEDED CAN INCREASE TO TWICE A DAY INSTRUCTED) nebivolol 10 mg tablet Commonly known as: BYSTOLIC TAKE 2 TABLETS (20 MG) IN THE MORNING AND 1 TABLET (10 MG) IN THE EVENING nitroglycerin sublingual 0.4 mg SL tablet Commonly known as: NITROQUICK DISSOLVE 1 TABLET UNDER THE TONGUE NEEDED FOR CHEST PAIN pantoprazole DR 40 mg tablet Commonly known as: PROTONIX TAKE 1 TABLET DAILY rosuvastatin 40 mg tablet Commonly known as: CRESTOR TAKE 1 TABLET DAILY AT BEDTIME sertraline 100 mg tablet Commonly known as: ZOLOFT TAKE 1 TABLET DAILY You might also be taking other medications not listed above. If you have questions about any of your other medications, talk to the person who prescribed them or your Primary Care Provider. Renita Jeremie (Road Worker) PAGER: [phone] June 13, 2021 6:01 [facility]11-01-2021 NoteHNO ID: [id number] Author: Thi Loyola APRN.CRNA Service: Anesthesiology Author Type: Nurse Supervisor Word Processing Type: Anesthesia Procedure Notes Filed: 06/13/2021 1:24 PM Note Text: ANESTHESIOLOGY PROCEDURE NOTE Airway General Information Procedure Start Time/Medication Administration: 06/13/2021 1:13 PM Patient location during procedure: OR Patient identity confirmed: arm band and patient Staffing CHIEF CARDIOPULMONARY TECHNOLOGIST: Thi Loyola APRN.CRNA Other anesthesia staff/rotator: Thi Loyola APRN.CHIEF CARDIOPULMONARY TECHNOLOGIST Performed by: LESLYE Indications and Patient Condition Preoxygenated: yes Patient position: sniffing Manual In-Line Stabilization: No Difficult Mask: No Indications for airway management: anesthesia anesthesia circuit Method: sleep Cricoid Pressure: No Final Airway Details Final airway type: endotracheal airway Final Endotracheal Airway: ETT Cuffed: yes Successful intubation technique: direct laryngoscopy Devices used: intubating stylet Endotracheal tube insertion site: oral Blade: Rob Blade size: #4 ETT size (mm): 7.0 Measured from: lips Measurement (cm): 22 Placement verified by: chest auscultation and capnometry Cormack-Lehane Classification: grade I - full view of glottis Number of attempts at approach: 1 Airway not difficult SIGNATURE: Thi Loyola APRN.CRNA PATIENT NAME: Joy Hawthorne DATE: June 13, 2021 TIME: 1:24 PM CSN: [id number] NoteHNO ID: [id number] Author: Agnes Negro RDMS Service: ? Author Type: Creative Services Manager Type: Progress Notes Filed: 04/04/2021 7:20 PM Note Text: Radiology Service Progress Note PATIENT NAME: Joy Hawthorne DATE OF SERVICE: April 04, 2021 TIME: 7:20 PM PATIENT IDENTITY VERIFICATION COMPLETED USING TWO (2) IDENTIFIERS: Name and Date of confirmed by patient verbally. FALL SCREENING: Has the patient had 2 falls in the last year or 1 fall with injury or currently using an Ambulatory Assistive Device (Walker, Cane, Wheelchair, Crutches, etc.)? Emergency Room Patient: Screened in ED PATIENT GENDER DATA: Female. status: : No status: NO. PATIENT RELEVANT IMPLANT DATA REVIEWED: Not Applicable RADIOLOGY DEPARTMENT: Ultrasound PERIPHERAL IV DATA: Not applicable SIGNED BY: Agnes Negro RDMS April 04, 2021 7:20 [id number] NoteHNO ID: [id number] Author: RT Belen(R) Service: Radiology Author Type: Beer Maker Type: Progress Notes Filed: 04/04/2021 5:38 PM Note Text: Radiology Service Progress Note PATIENT NAME: Joy Hawthorne DATE OF SERVICE: April 04, 2021 TIME: 5:37 PM PATIENT IDENTITY VERIFICATION COMPLETED USING TWO (2) IDENTIFIERS: Name and Date of confirmed by patient verbally and Name and Date of confirmed by identification band. FALL SCREENING: Has the patient had 2 falls in the last year or 1 fall with injury or currently using an Ambulatory Assistive Device (Walker, Cane, Wheelchair, Crutches, etc.)? Emergency Room Patient: Screened in ED PATIENT GENDER DATA: Female. status: : No status: NO. PATIENT RELEVANT IMPLANT DATA REVIEWED: Not Applicable RADIOLOGY DEPARTMENT: CT; Exam(s) Completed: Abdomen/Pelvis PERIPHERAL IV DATA: Not applicable SIGNED BY: RT Belen(R) April 04, 2021 5:37 [facility] [id number] NoteSend Summary: Discharge Summary Providers: Provider RoleProvider Name Mack Garcia, Tino Arteaga, Mack Johnson Note Recipients: Mack Uribe MD - [id number] [] Discharge: Summary: Admission Date: .01-Mar-2021 05:18:00 Discharge Date: 03-Mar-2021 Admission Reason: Chest pain, abdominal pain(1) Final Discharge Diagnoses: gastric ulcer, gastritis Procedures: EGD, colonoscopy, ECHO Hospital Course: The patient admitted for LUQ and left mid abdominal pain. No biliary duct dilation on ultrasound. EGD shows 1 gastric ulcer and gastritis. Colonoscopy shows one polyp and diverticulosis. Patient started on Protonix and Carafate. Cardiac workups (EKG and echo) unremarkable. No chest pain since admission; still having intermittent abdominal pain but tolerating diet. Discharge home Discharge Information: and Continuing Care: Lab Results - Pending: None Radiology Results - Pending: None Discharge Instructions: Activity: activity as tolerated. May shower.. Nutrition/Diet: Diet Consistency/Texture: soft Follow Up Appointments: Follow-Up Appointment 01: Physician/Dept/Service: F/u with Dr. Shaw next week sunday Follow-Up Appointment 02: Physician/Dept/Service: Followup with your Seismograph Helper at the [facility] Discharge Medications: Home Medication Bystolic 10 mg oral tablet - 2 tab(s) orally once a day in the morning Bystolic 10 mg oral tablet - 1 tab(s) orally once a day (at bedtime) losartan 25 mg oral tablet - 1 tab(s) orally once a day (at bedtime) Turmeric 500 mg oral capsule - 1 cap(s) orally 2 times a day Mitigare 0.6 mg oral capsule - 1 cap(s) orally once a day (at bedtime) rosuvastatin 40 mg oral tablet - 1 tab(s) orally once a day sucralfate 1 g oral tablet - 1 tab(s) orally 4 times a day - 4 Times a Day Before Meals pantoprazole 40 mg oral delayed release tablet - 1 tab(s) orally 2 times a day acetaminophen-codeine 300 mg-30 mg oral tablet - 1 tab(s) orally every 8 hours Colace 100 mg oral capsule - 1 cap(s) orally 2 times a day PRN Medication gabapentin 300 mg oral capsule - 1 cap(s) orally 2 times a day, As Needed albuterol 2.5 mg/3 mL (0.083%) inhalation solution - 3 milliliter(s) inhaled via nebulizer every 6 hours, As Needed Zofran 8 mg oral tablet - 1 tab(s) orally every 8 hours, As Needed nitroglycerin 0.4 mg sublingual tablet - 1 tab(s) sublingual every 5 minutes, As Needed, for up to 3 doses LORazepam 0.5 mg oral tablet - 1 tab(s) orally every 8 hours, As Needed - Anxiety ProAir HFA 90 mcg/inh inhalation aerosol - 2 puff(s) inhaled 4 times a day, As Needed Electronic Signatures: Tino Shaw) (Signed 03-Mar-2021 13:12) Authored: Send Summary, Summary Content, Ongoing Care, Note Completion Last Updated: 03-Mar-2021 13:12 by Tino Shaw) References: 1. Data Referenced From Daily Progress Note-Cardiology 02-Mar-2021 15:41[facility]07-22-2021 Hospital Discharge instructions* Activity:activity as tolerated. May shower. * Follow Up Appointment 1:Physician/Dept/Service: F/u with Dr. Shaw next week sundayPhone Number: [phone]: call to make appointment * Follow Up Appointment 2:Physician/Dept/Service: Followup with your Seismograph Helper at the [facility]07-20-2021 NoteHistory of Present Illness: /Lactating: Are You no (1) Are You Currently Breastfeedingno (1) Admission Reason: Chest pain, abdominal pain HPI: JOY HAWTHORNE is a 56 year old Female who presents to [facility] emergency department with complaints of chest pain and abdominal pain. Patient underwent paraesophageal hernia repair in December 2020. She recovered nicely at home however mid January she felt a tearing sensation in her left upper abdomen which is caused her pain since. She had a repeat CT of the abdomen and pelvis on 02/22/2021 which did not show any acute intra-abdominal findings. She reports the pain intensifies on a daily basis prompting her evaluation today. She denies having any nausea/vomiting or diarrhea. She denies any melena or amparo bloody stools. She denies any loss of appetite but also endorses approximate 60 pound weight loss since her surgery in December. Today, while being taken down for right upper quadrant ultrasound patient developed midsternal chest pressure radiating to her back. She was brought back to the emergency room for further treatment. Chest pain was not associated with any dizziness, shortness of breath, nausea or diaphoresis. Chest pain is not reproducible. No aggravating factors. Chest pain resolved spontaneously. She does have a history of PCI back in 2012 at [facility]. Patient had a stress test approximately 1 year ago which was normal. Any shortness of breath, cough, palpitations, fever, chills, nausea, vomiting, diarrhea or any urinary symptoms. She denies any lower extremity swelling. Presentation emergency department she is afebrile 36.9, heart rate 63, respirations 20, blood pressure 158/77, 98% on room air. CBC is unremarkable. Sodium 140, potassium 3.9, chloride 108, bicarb 24, anion gap 12, BUN 13, creatinine 0.87 with a GFR greater than 60. LFTs are within normal limits. Other than slightly elevated alkaline phosphatase at 120. Lipase is normal at 14. Initial troponin is less than 0.02. Lactate 1.6. Urinalysis was not collected. COVID-19 PCR is negative. Right upper quadrant ultrasound shows diffuse hepatic steatosis. Surgically absent gallbladder with no biliary dilatation. Initial EKG shows normal sinus rhythm with ventricular rate of 61. No acute ischemic changes. Patient was medicated with IV morphine, IV Zofran, Nitro-Bid ointment and aspirin 324 mg. She was given 1-1/2 L of normal saline. Patient will be admitted for further evaluation and treatment. PMH: HTN, HLD, paraesophageal hernia, NIDDM II, anxiety, CAD Surg Hx: cholecystectomy hysterectomy, paraesophageal repair, PCI 2012 [facility] Hx: reviewed and not pertinent to chief complaint Social Hx: Never smoked, denies alcohol and drug use ROS: All other systems have been reviewed and are negative for complaint. Physical Exam: Constitutional: Well developed, awake/alert/oriented x3, no distress, cooperative Eyes: PERRL, EOMI, clear sclera ENMT: mucous membranes moist, no apparent injury, no lesions seen Head/Neck: Neck supple, no apparent injury, thyroid without mass or tenderness, No JVD Respiratory/Thorax: CTAB, good chest expansion, thorax symmetric Cardiovascular: Regular, rate and rhythm, no murmurs, 2+ equal pulses of the extremities, normal S 1and S 2 Gastrointestinal: Nondistended, soft, LUQ tenderness, no rebound tenderness or guarding, no masses palpable, +BS Musculoskeletal: ROM intact, no joint swelling, normal strength Extremities: normal extremities, no edema, no contusions or wounds, no clubbing Skin: warm, dry, intact. Neuro: CN II-XII intact, A & O x 3. No focal deficits. Assessment/Plan Admit to observation 1. Chest pain Initiate ACS orders Consult Cardiology appreciated Continue cardiac monitoring Cycle troponin w/ EKG x 3 CXR reviewed: No acute cardiopulmonary process. Defer echocardiogram to cardiology ASA, Statin, beta dimple Check lipid panel and hemoglobin A1c Nitro and morphine PRN for pain DVTp PPI 2. Abdominal pain s/p paraesophageal hernia repair 12/[address] abdomen/pelvis Last CT on 02/22/21 not acute findings RUQ US today shows hepatic steatosis, no biliary duct dilation No vomiting Diabetic diet as tolerated Morphine for pain Zofran for nausea 3. HTN Resume home meds 4. HLD Statin 5. NIDDM II Hold metformin SSI coverage ac and at night HgbA1c in am Diabetic diet 6. Anxiety Lorazepam 0.5 mg once daily PRN POC d/w Dr. Rm Comorbidities: Comorbidites: Comorbid Conditionsdiabetes, hypertension Diabetes TypeType 2 Insulin Dependentno DM Acuity or Statusunknown DM Complicationsunknown DM Complicationsunknown DM Complicationsunknown Comorbid Conditionsdiabetes, hypertension Diabetes TypeType 2 Insulin Dependentunknown DM Acuity or Statusunknown Social History: Social History: Smoking Statusnever smoker (2) Alcohol Usedenies( (more content not included)...[facility] 01-02-2021 NoteSend Summary: Discharge Summary Providers: Provider RoleProvider Name Tino Jiménez Abraham PrimaryUnnithan, Jaya Sarojini Note Recipients: Tino Shaw MD Unnithan, Jaya Sarojini, MD - [id number] [] Discharge: Summary: Admission Date: .31-Dec-2020 05:10:00 Discharge Date: 02-Jan-2021 Admission Reason: symptomatic hiatal hernia Final Discharge Diagnoses: same Procedures: Date: 31-Dec-2020 11:53:00 Procedure Name: 1. Laparoscopic paraesophageal hernia repair with Toupet wrap; gastroscopy 2. 3. 4. 5. Hospital Course: The patient was admitted and underwent the above mentioned procedure. She is tolerating clear liquid with no nausea, vomiting, dysphagia and heartburn. She was started on Ativan this morning for anxiety attack. Per her, she was on medication but was weaned off it by her PCP. I instructed her to followup with her PCP for her anxiety medication to be resumed. She will start full liquid diet tomorrow and stay on it for 5 days and soft diet for 1 wk. Discharge Information: and Continuing Care: Lab Results - Pending: Basic Metabolic Panel Drawn at 02-Jan-2021 09:56:00 Magnesium, Serum Drawn at 02-Jan-2021 09:56:00 Phosphorus, Serum Drawn at 02-Jan-2021 09:56:00 Radiology Results - Pending: None Discharge Instructions: Activity: activity as tolerated No lifting more than 10 lbs for 6 wks. May shower.. Nutrition/Diet: Start Full liquid diet tomorrow and stay on for 5 days; than soft diet for 1 week Follow Up Appointments: Follow-Up Appointment 01: Physician/Dept/Service: F/u with Dr. Shaw in 2 wks Call to Schedule in: 2 weeks Follow-Up Appointment 02: Physician/Dept/Service: F/u with your Primary Care Doctor for your anxiety Discharge Medications: Home Medication pantoprazole 40 mg oral delayed release tablet - 1 tab(s) orally 2 times a day colchicine 0.6 mg oral tablet - 1 tab(s) orally once a day (at bedtime) Crestor 40 mg oral tablet - 1 tab(s) orally once a day (at bedtime) losartan 25 mg oral tablet - 1 tab(s) orally once a day (at bedtime) metFORMIN 500 mg oral tablet, extended release - orally 2 times a day aspirin 81 mg oral tablet - orally once a day Turmeric 500 mg oral capsule - 1 cap(s) orally once a day docusate sodium 100 mg oral capsule - 1 cap(s) orally 2 times a day simethicone 80 mg oral tablet, chewable - 1 tab(s) orally 4 times a day (after meals and at bedtime) Zofran 8 mg oral tablet - 1 tab(s) orally every 8 hours Bystolic 10 mg oral tablet - 2 tab(s) orally once a day in the morning-pt instructed to take on day of surgery Bystolic 10 mg oral tablet - 1 tab(s) orally once a day (at bedtime) PRN Medication ProAir HFA 90 mcg/inh inhalation aerosol - 2 puff(s) inhaled 4 times a day, As Needed-instructed to bring in on day of surgery, instructed ok to use AM of surgery hydrocodone-acetaminophen 7.5 mg-325 mg oral tablet - 1 tab(s) orally every 4 hours, As needed, Pain - Mod (4-6) LORazepam 0.5 mg oral tablet - 1 tab(s) orally every 8 hours, As needed, Anxiety nitroglycerin 0.4 mg sublingual tablet - 1 tab(s) sublingual every 5 minutes, As Needed Electronic Signatures: Tino Shaw) (Signed 02-Jan-2021 10:07) Authored: Send Summary, Summary Content, Ongoing Care, Note Completion Last Updated: 02-Jan-2021 10:07 by Tino Shaw)[facility] 12-31-2020 History of Present illness [id number] patient who underwent laparoscopic repair of hiatal hernia with toupet wrap on December 31. She went to the ER on January 25 due to left upper quadrant pain over the [address] scan shows postsurgical changes. I saw her in follow-up. On my review of the CT scan, she was noted to have moderate colonic constipation; she was given MiraLAX and milk of magnesia and has been taking Miralax once daily. She is having at least one non-bloody bowel movement daily but still has the pain. Last week Sunday, the pain became excruciating, sharp, constant, 10 out of 10 radiating to the back. Also had similar excruciating pain on Sunday in the same location. Denies nausea vomiting, heartburn, acid reflux and dysphagia. Last colonoscopy was in 2018 and due in 2023-[facility] [address] DO Work Phone: [phone]) 498-274105-21-2021 History of Present illness Narrative 56-year-old patient who December 31 underwent laparoscopic hiatal hernia repair with toupee wrap. On January 25 during follow-up she reported sharp rib pain sharp in pain in the left upper quadrant and left flank. The pain has persisted is usually 4 out of 10 dull achy pain and with with meal it goes up to10 out of 10 excruciating. Multiple work-up have included CT abdomen pelvis on January 25 and showed February 22 no acute intra-abdominal finding. Gallbladder ultrasound shows hepatic steatosis no biliary dilatation. Because she reported substernal chest pain in in the ER EKG shows normal ejection fraction above 65% and was unremarkable normal troponin. Infection was admitted in the hospital. EGD shows 1 gastrics 1 less than 1 mm gastric ulcer gastritis the wrap intact. Colonoscopy 1 polyp.-[facility] [facility] DO Work Phone: 1(323) 216-180105-21-2021 History of Present illness Narrative 56-year-old patient who on December 31, 2020 underwent laparoscopic hiatal hernia repair with toupet wrap by me. On January 25 during a follow-up, she reported sharp, tearing type pain in the left upper quadrant and left flank. The pain has persisted. It is there constantly; at baseline, it is 4 out of 10,dull, achy but with meal, it goes up to 10 out of 10 and excruciating. No radiation to back. Deniesnausea, vomiting, fevers, chills, heartburn, acid reflux and dysphagia. Multiple work-ups includingCT abdomen/pelvis on January 25 and February 22, gallbladder ultrasound for elevated LFTs and labs. She was admitted on March 01 and discharged on 03/03/2021. During her admission, she reported chest pain; t roponin negative and ECHO shows EF 60-65% with no acute findings. CT scans showed no acute findings. EGD/colonoscopy on 03/02/2021 showed gastritis, 1 mm gastric ulcer, intact Toupet wrap and 5-6 mm polyp in distal descending colon polyp. Pathology shows tubular adenoma and reactive gastropathy, negative H. pylori. She is here in followup. She is crying and said the pain is excruciating. She took left over norco which helped but Tylenol #3 not helping. Denies nausea, vomiting, fevers and chills.She admits to eating bread yesterday which made the pain worse.[facility] [address] DO Work Phone: [phone] 426-496905-21-2021 NotePost Operative Note: PreOp Diagnosis: Sliding hiatal hernia Post-Procedure Diagnosis: Type 3 paraesophageal hernia Procedure: 1. Laparoscopic paraesophageal hernia repair with Toupet wrap; gastroscopy 2. 3. 4. 5. Surgeon: Valeria Resident/Fellow/Other Steam Trap Man: Hali Reddy Estimated Blood Loss (mL): minimal Specimen: no Findings: small paraesophageal hernia with herniated fat anteriorly Operative Report Dictated: Dictation: not applicable - note contains Operative Report Operative Report: INDICATIONS FOR PROCEDURE 55 y/o patient with symptomatic hiatal hernia. Symptoms consist of substernal chest pain with meal, dysphagia, heartburn, acid reflux and cough. The patient underwent EGD in 2019 and 2019 showing hiatal hernia, gastritis, duodenitis and resolution of Ramirez's esophagus on last EGD. Esophageal manometry shows 60% peristalsis and contraction amplitude and 20% bolus transit completion. Esophagram shows the hiatal hernia. 48 hrs PH Villegas study off PPI shows abnormal Demeester score (25.1), high acid exposure and 100% positive correlation between symptoms of heartburn, chest pain, cough and acid exposure. I discussed findings with patient and sister. The patient was consented for laparoscopic hiatal hernia repair with Toupet wrap and EGD. I explained to the patient and sister the procedure, the risks and complications which include but not limited to bleeding, infection, esophageal injury, gastric injury, vagus nerve injury, vascular injury, injury to surrounding structures, delayed gastric emptying requiring another surgical or endoscopic procedures, dysphagia requiring dilation, excessive flatulence and gas and recurrence given her obesity. All questions answered and is willing to proceed. DETAILS OF THE PROCEDURE: After informed consent was obtained, the patient was brought into the operating room and placed in the supine position. The huddle and time-out were performed. General anesthesia was obtained without difficulty. She got 5000 units of subQ heparin. Left arterial line placed by the anesthesiologist. She was placed in the modified lithotomy position. All pressure points were padded and protected. Abdomen was prepped and draped with Chloraprep. A stab incision was made in the left upper quadrant. A Veress needle was placed. Pneumoperitoneum was obtained with CO2 at 15 mmHg. A 5 mm optical trocar was placed in the supra-umbilical region. There was no evidence of iatrogenic injury. Two 5 mm trocars were placed along the bilateral anterior axillary line. In the left upper quadrant, a 12 mm trocar was placed. Another 5 mm trocar was placed in the right upper quadrant. The liver retractor was placed. The patient was placed in the reversed Trendelenburg with the left side up. The short gastrics were ligated with the LigaSure starting from the inferior pole of the spleen extending to the left rob of the diaphragm. Staying medial to the rob, the phrenoesophageal ligament was ligated circumferentially. A small hiatal hernia was seen with herniated fat anteriorly. The retroesophageal window was created. The Mikey drain was placed. I proceeded with the mediastinal dissection. I continued my dissection allowing for 4-5 cm intraabdominal esophageal length. Both the anterior and posterior vagus nerves were identified and preserved during my dissection. The crura were reapproximated with 0 Ethibond sutures using Autosuture device in a figure of eight fashion. Two sutures were placed posteriorly and one anteriorly until the crura was slightly snug around the esophagus allowing the passage of a grasper easily. 2 cm from the GE junction and 3 cm from the greater curvature, a marking stitch was placed at the fundus. The fundus was brought around the esophagus to the right side. A 52-Icelandic bougie was placed. The shoeshine maneuver was performed and there was no tension on the fundus. I proceeded to create a 2 to 3 cm Toupet wrap securing the esophagus to the fundus using three 0-ethibond sutures. The wrap was then anchored to the diaphragm at the 6 o'clock position and left rob at 9 o'clock. I then broke scrub and the adult gastroscope was placed in the oral cavity, advanced to the stomach. No mucosal injury but small gastric polyps. On retroflexion, the wrap was intact. Gastric content and air were then suctioned out. I scrubbed back into the case. The left upper quadrant 12 mm trocar site was reapproximated with #1 Ethibond with a JenniferKimberly in a oxbmbr-lv-ocpey fashion. The liver retractor was removed. The CO2 was evacuated. The skin was reapproximated with 4-0 Monocryl in a subcuticular fashion. LiquiBand was placed. The patient was extubated. I spoke to the patient's family member about the intraoperative findings. All questions were answered. Signature/Cosignature/Attestation: Note Completion: Attending AttestationI performed the pr (more content not included)...[facility]05-21-2021 NoteHistory & Physical Reviewed: /Lactating: Are You no Are You Currently Breastfeedingno I have reviewed the History and Physical dated: 31-Dec-2020 History and Physical reviewed and relevant findings noted. Patient examined to review pertinent physical findings.: No significant changes Home Medications Reviewed: no changes noted Allergies Reviewed: no changes noted ERAS (Enhanced Recovery After Surgery): ERAS Patient: no Consent: COVID-19 Consent: COVID-19 Risk ConsentSurgeon has reviewed zuniga risks related to the risk of deedee COVID-19 and if they contract COVID-19 what the risks are. Signatures/Attestation: Note Completion: Attending Provider Inpatient Certification StatementObservation patient/other outpatient visits Electronic Signatures: Tino Shaw) (Signed 31-Dec-2020 07:13) Authored: History & Physical Reviewed, ERAS, Consent, Note Completion Last Updated: 31-Dec-2020 07:13 by Tino Shaw)[facility] 11-26-2020 NoteResults/Data Evaluation of Ambulatory 48 hour pH telemetry monitoring off of PPI, performed demonstrating evidence of the following 1. % Acid exposure: 6.7% (normal < 4%) 2. DeMeester score: 25.1 (normal < 14.72) 2. Symptom Index (SI): heartburn 100%, chest pain 52.3%, cough 66.7% (normal < 50%) 3. Symptom Associated Probability (SAP): heartburn 86.5%, chest pain 100%, cough 100% (normal < 95%) This indicated significant acid reflux and a positive correlation between symptoms of heartburn, chest pain, cough and acid exposure. Signatures Electronically signed by : Marvel Reyna MD; Nov 26 2020 10:14AM EST (Author) [id number] NoteHNO ID: [id number] Author: Sayra Turner Service: Radiology Author Type: Creative Services Manager Type: Progress Notes Filed: 05/31/2020 8:55 AM Note Text: Radiology Service Progress Note PATIENT NAME: Joy Hawthorne DATE OF SERVICE: May 31, 2020 TIME: 8:55 AM PATIENT IDENTITY VERIFICATION COMPLETED USING TWO (2) IDENTIFIERS: Name and Date of confirmed by patient verbally and Name and Date of confirmed by identification band. FALL SCREENING: Has the patient had 2 falls in the last year or 1 fall with injury or currently using an Ambulatory Assistive Device (Walker, Cane, Wheelchair, Crutches, etc.)? No PATIENT GENDER DATA: Female. status: : No status: NO. PATIENT RELEVANT IMPLANT DATA REVIEWED: Not Applicable RADIOLOGY DEPARTMENT: Ultrasound PERIPHERAL IV DATA: Not applicable RUQ and Kidney US done SIGNED BY: Sayra Turner RDMS, ADINT May 31, 2020 8:55 AMAsh[facility] [id number] History of Past illness Narrative* Problem Noted Date Resolved Date Suspected COVID-19 virus infection 03/04/2020 09/24/2020 Hypokalemia 03/28/2017 03/29/2017 Bradycardia 03/28/2017 08/20/2018 Diverticulitis 02/26/2017 08/20/2018 Overview: Added automatically from request for surgery [id number] Sigmoid diverticulitis 01/05/2017 9 Colitis 01/05/2017 01/06/2017 Chest pain 08/26/2012 09/14/2015 Colon polyp 08/20/2018 Overview: Cscope 05/29/14 w polyps, f/u 3 yrs. Morbid obesity with BMI of 40.0-44.9, adult 08/20/2018 Overview: 08/2015 Wt. 235# BMI 41 documented as of this encounter (statuses as of 11/21/2021) [facility]07-23-2020 History of Past illness Narrative* Problem Noted Date Resolved Date Suspected COVID-19 virus infection 03/04/2020 09/24/2020 Hypokalemia 03/28/2017 03/29/2017 Bradycardia 03/28/2017 08/20/2018 Diverticulitis 02/26/2017 08/20/2018 Overview: Added automatically from request for surgery [id number] Sigmoid diverticulitis 01/05/2017 9 Colitis 01/05/2017 01/06/2017 Chest pain 08/26/2012 09/14/2015 Colon polyp 08/20/2018 Overview: Cscope 05/29/14 w polyps, f/u 3 yrs. Morbid obesity with BMI of 40.0-44.9, adult 08/20/2018 Overview: 08/2015 Wt. 235# BMI 41 documented as of this encounter (statuses as of 11/22/2021) [facility] History of Past illness Narrative* Problem Noted Date Resolved Date Suspected COVID-19 virus infection 03/04/2020 09/24/2020 Hypokalemia 03/28/2017 03/29/2017 Bradycardia 03/28/2017 08/20/2018 Diverticulitis 02/26/2017 08/20/2018 Overview: Added automatically from request for surgery [id number] Sigmoid diverticulitis 01/05/2017 9 Colitis 01/05/2017 01/06/2017 Chest pain 08/26/2012 09/14/2015 Colon polyp 08/20/2018 Overview: Cscope 05/29/14 w polyps, f/u 3 yrs. Morbid obesity with BMI of 40.0-44.9, adult 08/20/2018 Overview: 08/2015 Wt. 235# BMI 41 documented as of this encounter (statuses as of 12/12/2021) [facility] History of Past illness Narrative* Problem Noted Date Resolved Date Suspected COVID-19 virus infection 03/04/2020 09/24/2020 Hypokalemia 03/28/2017 03/29/2017 Bradycardia 03/28/2017 08/20/2018 Diverticulitis 02/26/2017 08/20/2018 Overview: Added automatically from request for surgery [id number] Sigmoid diverticulitis 01/05/2017 9 Colitis 01/05/2017 01/06/2017 Chest pain 08/26/2012 09/14/2015 Colon polyp 08/20/2018 Overview: Cscope 05/29/14 w polyps, f/u 3 yrs. Morbid obesity with BMI of 40.0-44.9, adult 08/20/2018 Overview: 08/2015 Wt. 235# BMI 41 documented as of this encounter (statuses as of 12/14/2021) [facility] History of Past illness Narrative* Problem Noted Date Resolved Date Suspected COVID-19 virus infection 03/04/2020 09/24/2020 Hypokalemia 03/28/2017 03/29/2017 Bradycardia 03/28/2017 08/20/2018 Diverticulitis 02/26/2017 08/20/2018 Overview: Added automatically from request for surgery [id number] Sigmoid diverticulitis 01/05/2017 9 Colitis 01/05/2017 01/06/2017 Chest pain 08/26/2012 09/14/2015 Colon polyp 08/20/2018 Overview: Cscope 05/29/14 w polyps, f/u 3 yrs. Morbid obesity with BMI of 40.0-44.9, adult 08/20/2018 Overview: 08/2015 Wt. 235# BMI 41 documented as of this encounter (statuses as of 01/10/2022) [facility] History of Past illness Narrative* Problem Noted Date Resolved Date Suspected COVID-19 virus infection 03/04/2020 09/24/2020 Hypokalemia 03/28/2017 03/29/2017 Bradycardia 03/28/2017 08/20/2018 Diverticulitis 02/26/2017 08/20/2018 Overview: Added automatically from request for surgery [id number] Sigmoid diverticulitis 01/05/2017 9 Colitis 01/05/2017 01/06/2017 Chest pain 08/26/2012 09/14/2015 Colon polyp 08/20/2018 Overview: Cscope 05/29/14 w polyps, f/u 3 yrs. Morbid obesity with BMI of 40.0-44.9, adult 08/20/2018 Overview: 08/2015 Wt. 235# BMI 41 documented as of this encounter (statuses as of 01/11/2022) [facility] History of Past illness Narrative* Problem Noted Date Resolved Date Suspected COVID-19 virus infection 03/04/2020 09/24/2020 Hypokalemia 03/28/2017 03/29/2017 Bradycardia 03/28/2017 08/20/2018 Diverticulitis 02/26/2017 08/20/2018 Overview: Added automatically from request for surgery [id number] Sigmoid diverticulitis 01/05/2017 9 Colitis 01/05/2017 01/06/2017 Chest pain 08/26/2012 09/14/2015 Colon polyp 08/20/2018 Overview: Cscope 05/29/14 w polyps, f/u 3 yrs. Morbid obesity with BMI of 40.0-44.9, adult 08/20/2018 Overview: 08/2015 Wt. 235# BMI 41 documented as of this encounter (statuses as of 01/12/2022) [facility] History of Past illness Narrative* Problem Noted Date Resolved Date Suspected COVID-19 virus infection 03/04/2020 09/24/2020 Hypokalemia 03/28/2017 03/29/2017 Bradycardia 03/28/2017 08/20/2018 Diverticulitis 02/26/2017 08/20/2018 Overview: Added automatically from request for surgery [id number] Sigmoid diverticulitis 01/05/2017 9 Colitis 01/05/2017 01/06/2017 Chest pain 08/26/2012 09/14/2015 Colon polyp 08/20/2018 Overview: Cscope 05/29/14 w polyps, f/u 3 yrs. Morbid obesity with BMI of 40.0-44.9, adult 08/20/2018 Overview: 08/2015 Wt. 235# BMI 41 documented as of this encounter (statuses as of 01/20/2022) [facility] History of Past illness Narrative* Problem Noted Date Resolved Date Suspected COVID-19 virus infection 03/04/2020 09/24/2020 Hypokalemia 03/28/2017 03/29/2017 Bradycardia 03/28/2017 08/20/2018 Diverticulitis 02/26/2017 08/20/2018 Overview: Added automatically from request for surgery [id number] Sigmoid diverticulitis 01/05/2017 9 Colitis 01/05/2017 01/06/2017 Chest pain 08/26/2012 09/14/2015 Colon polyp 08/20/2018 Overview: Cscope 05/29/14 w polyps, f/u 3 yrs. Morbid obesity with BMI of 40.0-44.9, adult 08/20/2018 Overview: 08/2015 Wt. 235# BMI 41 documented as of this encounter (statuses as of 01/20/2022) [facility] History of Past illness Narrative* Problem Noted Date Resolved Date Suspected COVID-19 virus infection 03/04/2020 09/24/2020 Hypokalemia 03/28/2017 03/29/2017 Bradycardia 03/28/2017 08/20/2018 Diverticulitis 02/26/2017 08/20/2018 Overview: Added automatically from request for surgery [id number] Sigmoid diverticulitis 01/05/2017 9 Colitis 01/05/2017 01/06/2017 Chest pain 08/26/2012 09/14/2015 Colon polyp 08/20/2018 Overview: Cscope 05/29/14 w polyps, f/u 3 yrs. Morbid obesity with BMI of 40.0-44.9, adult 08/20/2018 Overview: 08/2015 Wt. 235# BMI 41 documented as of this encounter (statuses as of 01/27/2022) [facility] History of Past illness Narrative* Problem Noted Date Resolved Date Suspected COVID-19 virus infection 03/04/2020 09/24/2020 Hypokalemia 03/28/2017 03/29/2017 Bradycardia 03/28/2017 08/20/2018 Diverticulitis 02/26/2017 08/20/2018 Overview: Added automatically from request for surgery [id number] Sigmoid diverticulitis 01/05/2017 9 Colitis 01/05/2017 01/06/2017 Chest pain 08/26/2012 09/14/2015 Colon polyp 08/20/2018 Overview: Cscope 05/29/14 w polyps, f/u 3 yrs. Morbid obesity with BMI of 40.0-44.9, adult 08/20/2018 Overview: 08/2015 Wt. 235# BMI 41 documented as of this encounter (statuses as of 04/18/2022) [facility] History of Past illness Narrative* Problem Noted Date Resolved Date Suspected COVID-19 virus infection 03/04/2020 09/24/2020 Hypokalemia 03/28/2017 03/29/2017 Bradycardia 03/28/2017 08/20/2018 Diverticulitis 02/26/2017 08/20/2018 Overview: Added automatically from request for surgery [id number] Sigmoid diverticulitis 01/05/2017 9 Colitis 01/05/2017 01/06/2017 Chest pain 08/26/2012 09/14/2015 Colon polyp 08/20/2018 Overview: Cscope 05/29/14 w polyps, f/u 3 yrs. Morbid obesity with BMI of 40.0-44.9, adult 08/20/2018 Overview: 08/2015 Wt. 235# BMI 41 documented as of this encounter (statuses as of 04/21/2022) [facility] History of Past illness Narrative* Problem Noted Date Resolved Date Suspected COVID-19 virus infection 03/04/2020 09/24/2020 Hypokalemia 03/28/2017 03/29/2017 Bradycardia 03/28/2017 08/20/2018 Diverticulitis 02/26/2017 08/20/2018 Overview: Added automatically from request for surgery [id number] Sigmoid diverticulitis 01/05/2017 9 Colitis 01/05/2017 01/06/2017 Chest pain 08/26/2012 09/14/2015 Colon polyp 08/20/2018 Overview: Cscope 05/29/14 w polyps, f/u 3 yrs. Morbid obesity with BMI of 40.0-44.9, adult 08/20/2018 Overview: 08/2015 Wt. 235# BMI 41 documented as of this encounter (statuses as of 05/09/2022) [facility] History of Past illness Narrative* Problem Noted Date Resolved Date Suspected COVID-19 virus infection 03/04/2020 09/24/2020 Hypokalemia 03/28/2017 03/29/2017 Bradycardia 03/28/2017 08/20/2018 Diverticulitis 02/26/2017 08/20/2018 Overview: Added automatically from request for surgery [id number] Sigmoid diverticulitis 01/05/2017 9 Colitis 01/05/2017 01/06/2017 Chest pain 08/26/2012 09/14/2015 Colon polyp 08/20/2018 Overview: Cscope 05/29/14 w polyps, f/u 3 yrs. Morbid obesity with BMI of 40.0-44.9, adult 08/20/2018 Overview: 08/2015 Wt. 235# BMI 41 documented as of this encounter (statuses as of 05/23/2022) [facility] History of Past illness Narrative* Problem Noted Date Resolved Date Suspected COVID-19 virus infection 03/04/2020 09/24/2020 Hypokalemia 03/28/2017 03/29/2017 Bradycardia 03/28/2017 08/20/2018 Diverticulitis 02/26/2017 08/20/2018 Overview: Added automatically from request for surgery [id number] Sigmoid diverticulitis 01/05/2017 9 Colitis 01/05/2017 01/06/2017 Chest pain 08/26/2012 09/14/2015 Colon polyp 08/20/2018 Overview: Cscope 05/29/14 w polyps, f/u 3 yrs. Morbid obesity with BMI of 40.0-44.9, adult 08/20/2018 Overview: 08/2015 Wt. 235# BMI 41 documented as of this encounter (statuses as of 05/23/2022) [facility] History of Past illness Narrative* Problem Noted Date Resolved Date Suspected COVID-19 virus infection 03/04/2020 09/24/2020 Hypokalemia 03/28/2017 03/29/2017 Bradycardia 03/28/2017 08/20/2018 Diverticulitis 02/26/2017 08/20/2018 Overview: Added automatically from request for surgery [id number] Sigmoid diverticulitis 01/05/2017 9 Colitis 01/05/2017 01/06/2017 Chest pain 08/26/2012 09/14/2015 Colon polyp 08/20/2018 Overview: Cscope 05/29/14 w polyps, f/u 3 yrs. Morbid obesity with BMI of 40.0-44.9, adult 08/20/2018 Overview: 08/2015 Wt. 235# BMI 41 documented as of this encounter (statuses as of 05/23/2022) [facility] History of Past illness Narrative* Problem Noted Date Resolved Date Suspected COVID-19 virus infection 03/04/2020 09/24/2020 Hypokalemia 03/28/2017 03/29/2017 Bradycardia 03/28/2017 08/20/2018 Diverticulitis 02/26/2017 08/20/2018 Overview: Added automatically from request for surgery [id number] Sigmoid diverticulitis 01/05/2017 9 Colitis 01/05/2017 01/06/2017 Chest pain 08/26/2012 09/14/2015 Colon polyp 08/20/2018 Overview: Cscope 05/29/14 w polyps, f/u 3 yrs. Morbid obesity with BMI of 40.0-44.9, adult 08/20/2018 Overview: 08/2015 Wt. 235# BMI 41 documented as of this encounter (statuses as of 06/05/2022) [facility] History of Past illness Narrative* Problem Noted Date Resolved Date Suspected COVID-19 virus infection 03/04/2020 09/24/2020 Hypokalemia 03/28/2017 03/29/2017 Bradycardia 03/28/2017 08/20/2018 Diverticulitis 02/26/2017 08/20/2018 Overview: Added automatically from request for surgery [id number] Sigmoid diverticulitis 01/05/2017 9 Colitis 01/05/2017 01/06/2017 Chest pain 08/26/2012 09/14/2015 Colon polyp 08/20/2018 Overview: Cscope 05/29/14 w polyps, f/u 3 yrs. Morbid obesity with BMI of 40.0-44.9, adult 08/20/2018 Overview: 08/2015 Wt. 235# BMI 41 documented as of this encounter (statuses as of 09/15/2022) [facility] History of Past illness Narrative* Problem Noted Date Resolved Date Suspected COVID-19 virus infection 03/04/2020 09/24/2020 Hypokalemia 03/28/2017 03/29/2017 Bradycardia 03/28/2017 08/20/2018 Diverticulitis 02/26/2017 08/20/2018 Overview: Added automatically from request for surgery [id number] Sigmoid diverticulitis 01/05/2017 9 Colitis 01/05/2017 01/06/2017 Chest pain 08/26/2012 09/14/2015 Colon polyp 08/20/2018 Overview: Cscope 05/29/14 w polyps, f/u 3 yrs. Morbid obesity with BMI of 40.0-44.9, adult 08/20/2018 Overview: 08/2015 Wt. 235# BMI 41 documented as of this encounter (statuses as of 10/06/2022) [facility] History of Past illness Narrative* Problem Noted Date Resolved Date Suspected COVID-19 virus infection 03/04/2020 09/24/2020 Hypokalemia 03/28/2017 03/29/2017 Bradycardia 03/28/2017 08/20/2018 Diverticulitis 02/26/2017 08/20/2018 Overview: Added automatically from request for surgery [id number] Sigmoid diverticulitis 01/05/2017 9 Colitis 01/05/2017 01/06/2017 Chest pain 08/26/2012 09/14/2015 Colon polyp 08/20/2018 Overview: Cscope 05/29/14 w polyps, f/u 3 yrs. Morbid obesity with BMI of 40.0-44.9, adult 08/20/2018 Overview: 08/2015 Wt. 235# BMI 41 documented as of this encounter (statuses as of 10/06/2022) [facility] History of Past illness Narrative* Problem Noted Date Resolved Date Suspected COVID-19 virus infection 03/04/2020 09/24/2020 Hypokalemia 03/28/2017 03/29/2017 Bradycardia 03/28/2017 08/20/2018 Diverticulitis 02/26/2017 08/20/2018 Overview: Added automatically from request for surgery [id number] Sigmoid diverticulitis 01/05/2017 9 Colitis 01/05/2017 01/06/2017 Chest pain 08/26/2012 09/14/2015 Colon polyp 08/20/2018 Overview: Cscope 05/29/14 w polyps, f/u 3 yrs. Morbid obesity with BMI of 40.0-44.9, adult 08/20/2018 Overview: 08/2015 Wt. 235# BMI 41 documented as of this encounter (statuses as of 10/10/2022) [facility] History of Past illness Narrative* Problem Noted Date Resolved Date Suspected COVID-19 virus infection 03/04/2020 09/24/2020 Hypokalemia 03/28/2017 03/29/2017 Bradycardia 03/28/2017 08/20/2018 Diverticulitis 02/26/2017 08/20/2018 Overview: Added automatically from request for surgery [id number] Sigmoid diverticulitis 01/05/2017 9 Colitis 01/05/2017 01/06/2017 Chest pain 08/26/2012 09/14/2015 Colon polyp 08/20/2018 Overview: Cscope 05/29/14 w polyps, f/u 3 yrs. Morbid obesity with BMI of 40.0-44.9, adult 08/20/2018 Overview: 08/2015 Wt. 235# BMI 41 documented as of this encounter (statuses as of 10/20/2022) [facility] History of Past illness Narrative* Problem Noted Date Resolved Date Suspected COVID-19 virus infection 03/04/2020 09/24/2020 Hypokalemia 03/28/2017 03/29/2017 Bradycardia 03/28/2017 08/20/2018 Diverticulitis 02/26/2017 08/20/2018 Overview: Added automatically from request for surgery [id number] Sigmoid diverticulitis 01/05/2017 9 Colitis 01/05/2017 01/06/2017 Chest pain 08/26/2012 09/14/2015 Colon polyp 08/20/2018 Overview: Cscope 05/29/14 w polyps, f/u 3 yrs. Morbid obesity with BMI of 40.0-44.9, adult 08/20/2018 Overview: 08/2015 Wt. 235# BMI 41 documented as of this encounter (statuses as of 10/20/2022) [facility] History of Past illness Narrative* Problem Noted Date Resolved Date Suspected COVID-19 virus infection 03/04/2020 09/24/2020 Hypokalemia 03/28/2017 03/29/2017 Bradycardia 03/28/2017 08/20/2018 Diverticulitis 02/26/2017 08/20/2018 Overview: Added automatically from request for surgery [id number] Sigmoid diverticulitis 01/05/2017 9 Colitis 01/05/2017 01/06/2017 Chest pain 08/26/2012 09/14/2015 Colon polyp 08/20/2018 Overview: Cscope 05/29/14 w polyps, f/u 3 yrs. Morbid obesity with BMI of 40.0-44.9, adult 08/20/2018 Overview: 08/2015 Wt. 235# BMI 41 documented as of this encounter (statuses as of 11/09/2022) [facility] History of Past illness Narrative* Problem Noted Date Resolved Date Suspected COVID-19 virus infection 03/04/2020 09/24/2020 Hypokalemia 03/28/2017 03/29/2017 Bradycardia 03/28/2017 08/20/2018 Diverticulitis 02/26/2017 08/20/2018 Overview: Added automatically from request for surgery [id number] Sigmoid diverticulitis 01/05/2017 9 Colitis 01/05/2017 01/06/2017 Chest pain 08/26/2012 09/14/2015 Colon polyp 08/20/2018 Overview: Cscope 05/29/14 w polyps, f/u 3 yrs. Morbid obesity with BMI of 40.0-44.9, adult 08/20/2018 Overview: 08/2015 Wt. 235# BMI 41 documented as of this encounter (statuses as of 11/17/2022) [address]-2020 History of Past illness Narrative* Problem Noted Date Resolved Date Suspected COVID-19 virus infection 03/04/2020 09/24/2020 Hypokalemia 03/28/2017 03/29/2017 Bradycardia 03/28/2017 08/20/2018 Diverticulitis 02/26/2017 08/20/2018 Overview: Added automatically from request for surgery [id number] Sigmoid diverticulitis 01/05/2017 9 Colitis 01/05/2017 01/06/2017 Chest pain 08/26/2012 09/14/2015 Colon polyp 08/20/2018 Overview: Cscope 05/29/14 w polyps, f/u 3 yrs. Morbid obesity with BMI of 40.0-44.9, adult 08/20/2018 Overview: 08/2015 Wt. 235# BMI 41 documented as of this encounter (statuses as of 12/25/2022) [facility] History of Past illness Narrative* Problem Noted Date Resolved Date Suspected COVID-19 virus infection 03/04/2020 09/24/2020 Hypokalemia 03/28/2017 03/29/2017 Bradycardia 03/28/2017 08/20/2018 Diverticulitis 02/26/2017 08/20/2018 Overview: Added automatically from request for surgery [id number] Sigmoid diverticulitis 01/05/2017 9 Colitis 01/05/2017 01/06/2017 Chest pain 08/26/2012 09/14/2015 Colon polyp 08/20/2018 Overview: Cscope 05/29/14 w polyps, f/u 3 yrs. Morbid obesity with BMI of 40.0-44.9, adult 08/20/2018 Overview: 08/2015 Wt. 235# BMI 41 documented as of this encounter (statuses as of 01/10/2023) [facility] History of Past illness Narrative* Problem Noted Date Resolved Date Suspected COVID-19 virus infection 03/04/2020 09/24/2020 Hypokalemia 03/28/2017 03/29/2017 Bradycardia 03/28/2017 08/20/2018 Diverticulitis 02/26/2017 08/20/2018 Overview: Added automatically from request for surgery [id number] Sigmoid diverticulitis 01/05/2017 9 Colitis 01/05/2017 01/06/2017 Chest pain 08/26/2012 09/14/2015 Colon polyp 08/20/2018 Overview: Cscope 05/29/14 w polyps, f/u 3 yrs. Morbid obesity with BMI of 40.0-44.9, adult 08/20/2018 Overview: 08/2015 Wt. 235# BMI 41 documented as of this encounter (statuses as of 01/10/2023) [facility] History of Past illness Narrative* Problem Noted Date Resolved Date Suspected COVID-19 virus infection 03/04/2020 09/24/2020 Hypokalemia 03/28/2017 03/29/2017 Bradycardia 03/28/2017 08/20/2018 Diverticulitis 02/26/2017 08/20/2018 Overview: Added automatically from request for surgery [id number] Sigmoid diverticulitis 01/05/2017 9 Colitis 01/05/2017 01/06/2017 Chest pain 08/26/2012 09/14/2015 Colon polyp 08/20/2018 Overview: Cscope 05/29/14 w polyps, f/u 3 yrs. Morbid obesity with BMI of 40.0-44.9, adult 08/20/2018 Overview: 08/2015 Wt. 235# BMI 41 documented as of this encounter (statuses as of 01/12/2023) [facility] History of Past illness Narrative* Problem Noted Date Resolved Date Suspected COVID-19 virus infection 03/04/2020 09/24/2020 Hypokalemia 03/28/2017 03/29/2017 Bradycardia 03/28/2017 08/20/2018 Diverticulitis 02/26/2017 08/20/2018 Overview: Added automatically from request for surgery [id number] Sigmoid diverticulitis 01/05/2017 9 Colitis 01/05/2017 01/06/2017 Chest pain 08/26/2012 09/14/2015 Colon polyp 08/20/2018 Overview: Cscope 05/29/14 w polyps, f/u 3 yrs. Morbid obesity with BMI of 40.0-44.9, adult 08/20/2018 Overview: 08/2015 Wt. 235# BMI 41 documented as of this encounter (statuses as of 01/17/2023) [facility] History of Past illness Narrative* Problem Noted Date Resolved Date Suspected COVID-19 virus infection 03/04/2020 09/24/2020 Hypokalemia 03/28/2017 03/29/2017 Bradycardia 03/28/2017 08/20/2018 Diverticulitis 02/26/2017 08/20/2018 Overview: Added automatically from request for surgery [id number] Sigmoid diverticulitis 01/05/2017 9 Colitis 01/05/2017 01/06/2017 Chest pain 08/26/2012 09/14/2015 Colon polyp 08/20/2018 Overview: Cscope 05/29/14 w polyps, f/u 3 yrs. Morbid obesity with BMI of 40.0-44.9, adult 08/20/2018 Overview: 08/2015 Wt. 235# BMI 41 documented as of this encounter (statuses as of 02/06/2023) [facility] History of Past illness Narrative* Problem Noted Date Diagnosed Date Resolved Date Suspected COVID-19 virus infection 03/04/2020 09/24/2020 Hypokalemia 03/28/2017 03/29/2017 Bradycardia 03/28/2017 08/20/2018 Diverticulitis 02/26/2017 08/20/2018 Overview: Added automatically from request for surgery [id number] Sigmoid diverticulitis 01/05/201708/20 Colitis 01/05/2017 01/06/2017 Chest pain 08/26/2012 09/14/2015 Colon polyp 08/20/2018 Overview: Cscope 05/29/14 w polyps, f/u 3 yrs. Morbid obesity with BMI of 40.0-44.9, adult 08/20/2018 Overview: 08/2015 Wt. 235# BMI 41 documented as of this encounter (statuses as of 03/21/2023) [facility] History of Past illness Narrative* Problem Noted Date Diagnosed Date Resolved Date Suspected COVID-19 virus infection 03/04/2020 09/24/2020 Hypokalemia 03/28/2017 03/29/2017 Bradycardia 03/28/2017 08/20/2018 Diverticulitis 02/26/2017 08/20/2018 Overview: Added automatically from request for surgery [id number] Sigmoid diverticulitis 01/05/201708/20 Colitis 01/05/2017 01/06/2017 Chest pain 08/26/2012 09/14/2015 Colon polyp 08/20/2018 Overview: Cscope 05/29/14 w polyps, f/u 3 yrs. Morbid obesity with BMI of 40.0-44.9, adult 08/20/2018 Overview: 08/2015 Wt. 235# BMI 41 documented as of this encounter (statuses as of 03/23/2023) [facility] History of Past illness Narrative* Problem Noted Date Diagnosed Date Resolved Date Suspected COVID-19 virus infection 03/04/2020 09/24/2020 Hypokalemia 03/28/2017 03/29/2017 Bradycardia 03/28/2017 08/20/2018 Diverticulitis 02/26/2017 08/20/2018 Overview: Added automatically from request for surgery [id number] Sigmoid diverticulitis 01/05/201708/20 Colitis 01/05/2017 01/06/2017 Chest pain 08/26/2012 09/14/2015 Colon polyp 08/20/2018 Overview: Cscope 05/29/14 w polyps, f/u 3 yrs. Morbid obesity with BMI of 40.0-44.9, adult 08/20/2018 Overview: 08/2015 Wt. 235# BMI 41 documented as of this encounter (statuses as of 03/23/2023) [facility] History of Past illness Narrative* Problem Noted Date Diagnosed Date Resolved Date Suspected COVID-19 virus infection 03/04/2020 09/24/2020 Hypokalemia 03/28/2017 03/29/2017 Bradycardia 03/28/2017 08/20/2018 Diverticulitis 02/26/2017 08/20/2018 Overview: Added automatically from request for surgery [id number] Sigmoid diverticulitis 01/05/201708/20 Colitis 01/05/2017 01/06/2017 Chest pain 08/26/2012 09/14/2015 Colon polyp 08/20/2018 Overview: Cscope 05/29/14 w polyps, f/u 3 yrs. Morbid obesity with BMI of 40.0-44.9, adult 08/20/2018 Overview: 08/2015 Wt. 235# BMI 41 documented as of this encounter (statuses as of 06/16/2023) [facility] History of Past illness Narrative* Problem Noted Date Diagnosed Date Resolved Date Suspected COVID-19 virus infection 03/04/2020 09/24/2020 Hypokalemia 03/28/2017 03/29/2017 Bradycardia 03/28/2017 08/20/2018 Diverticulitis 02/26/2017 08/20/2018 Overview: Added automatically from request for surgery [id number] Sigmoid diverticulitis 01/05/201708/20 Colitis 01/05/2017 01/06/2017 Chest pain 08/26/2012 09/14/2015 Colon polyp 08/20/2018 Overview: Cscope 05/29/14 w polyps, f/u 3 yrs. Morbid obesity with BMI of 40.0-44.9, adult 08/20/2018 Overview: 08/2015 Wt. 235# BMI 41 documented as of this encounter (statuses as of 06/16/2023) [facility] History of Past illness Narrative* Problem Noted Date Diagnosed Date Resolved Date Suspected COVID-19 virus infection 03/04/2020 09/24/2020 Hypokalemia 03/28/2017 03/29/2017 Bradycardia 03/28/2017 08/20/2018 Diverticulitis 02/26/2017 08/20/2018 Overview: Added automatically from request for surgery [id number] Sigmoid diverticulitis 01/05/201708/20 Colitis 01/05/2017 01/06/2017 Chest pain 08/26/2012 09/14/2015 Colon polyp 08/20/2018 Overview: Cscope 05/29/14 w polyps, f/u 3 yrs. Morbid obesity with BMI of 40.0-44.9, adult 08/20/2018 Overview: 08/2015 Wt. 235# BMI 41 documented as of this encounter (statuses as of 10/18/2023) [facility]ments Appointment Date:05/03/2023 02:45:00 PM Scheduled Provider:Deloris TRENT, Jason Bishop [facility] Future [facility]ments Appointment Date:04/19/2023 12:15:00 PM Scheduled Provider: [facility] App[facility] Type:NM Myocard Spect Multi Rest/Stress-Res Appointment Date:04/19/2023 01:15:00 PM Scheduled Provider: [facility] App[facility] Type:NM Myocard Spect Multi Rest/Stress - R Appointment Date:04/19/2023 01:45:00 PM Scheduled Provider: [facility] App[facility] Type:NM Myocard Spect Multi Rest/Stress-Str Appointment Date:04/19/2023 02:45:00 PM Scheduled Provider: [facility] Appointment Type:NM Myocar Spect Multi Rest/Stress - St Appointment Date:04/20/2023 09:00:00 AM Scheduled Provider: Location[facility] Appointment Type:CV Holter/Event (FT) Appointment Date:05/03/2023 02:45:00 PM Scheduled Provider:Jason Puentes MD [facility] Appointment Type:Cardiology Follow Up (FT) Future Scheduled Tests Radiology* NM Myocardial Spect Rest/Stress 1 Day 04/19/23 [facility] + Plan note Future Appointments Appointment Date:05/07/2023 09:00:00 AM Scheduled Provider: [facility] Type:CV Heart Cath (FT) Future Scheduled Tests Radiology* CV Cardiovascular 05/07/23 [facility] + Plan note Future Appointments Appointment Date:06/11/2023 09:30:00 AM Scheduled Provider:Juanita DAVIS CNP [facility] Type:Cardiology Follow Up (FT) [facility] + Plan note Future Appointments Appointment Date:08/10/2023 04:30:00 PM Scheduled Provider:Jason Puentes MD [facility] Appointment Type:Cardiology Follow Up (FT) [facility] note* Constitutional: moaning and appears uncomfortableRespiratory/Thorax: Patent airways, CTAB, normal breath sounds with good chest expansion, thorax symmetricCardiovascular: Regular, rate and rhythm, nomurmurs, 2+ equal pulses of the extremities, normal S 1and S 2Gastrointestinal: soft, non-distended, moderate tenderness in LUQ/left mid abdominal region, no peritoneal signMusculoskeletal: ROM intact, no joint swelling, normal strengthExtremities: normal extremities, no cyanosis edema, contusions or wounds, no clubbing [facility] note* Diagnosis Controlled type 2 diabetes mellitus without complication, without long-term current use of insulin (HCC)- Primary documented in this encounter [facility] note* Diagnosis Paresthesias- Primary Disturbance of skin sensation Essential hypertension Unspecified essential hypertension Controlled type 2 diabetes mellitus without complication, without long-term current use of insulin (HCC) documented in this encounter [facility] note* Diagnosis Controlled type 2 diabetes mellitus without complication, without long-term current use of insulin (HCC) Essential hypertension Unspecified essential hypertension documented in this encounter [facility] note* Diagnosis Essential hypertension Unspecified essential hypertension documented in this encounter [facility] note* Diagnosis COVID-19- Primary Coronary artery disease involving sitka coronary artery of sitka heart without angina pectoris [facility] Diagnosis Onset Date Resolution Status Chest pain acute Coronary artery disease acut e COVID-19 acute Hypertension [facility] Work Phone: Evaluation note* Diagnosis Onset Date Resolution Status Arterial stent thrombosis ac pawel Chest pain acute Coronary artery disease acut e COVID-19 acute Frontal headache acute Hypertension [facility] Work Phone: Evaluation note* Diagnosis Gout with manifestations- Primary Gout with other specified manifestations Hyperuricemia, hx Other abnormal blood chemistry Strain of left rotator cuff capsule, initial encounter Medial epicondylitis of left elbow Medial epicondylitis of elbow [facility]* Diagnosis Combined forms of age-related cataract of both eyes- Primary Other and combined forms of senile cataract Screening for diabetic retinopathy Screening for other eye conditions [facility]* Diagnosis Left upper quadrant abdominal pain- Primary [facility]* Diagnosis Controlled type 2 diabetes mellitus without complication, without long-term current use of insulin (HCC)- Primary Essential hypertension Unspecified essential hypertension Gastroesophageal reflux disease without esophagitis Esophageal reflux Encounter for immunization Need for other specified prophylactic vaccination against single bacterial disease [facility] noteNo assessment information availableMer[facility] Work [facility]: Evaluation note* Diagnosis Left flank pain- Primary Abdominal pain, unspecified site [facility] Vitamin D deficiency- Primary Unspecified vitamin D deficiency Primary osteoarthritis of both hands [facility] Diagnosis Gout with manifestations- Primary Gout with other specified manifestations Primary osteoarthritis of both knees Primary localized osteoarthrosis, lower leg Multiple joint pain Pain in joint, multiple sites Acute left ankle pain Pain in both hands [facility]* Diagnosis Elevated alkaline phosphatase level- Primary Other nonspecific abnormal serum enzyme levels [facility]* Diagnosis Primary osteoarthritis of both hands- Primary [facility]* Diagnosis Encounter for screening mammogram for breast cancer [facility] Diagnosis Right flank pain- Primary Abdominal pain, unspecified site documented in this encounter [facility] note* Diagnosis Epigastric pain- Primary Abdominal pain, epigastric RUQ pain Abdominal pain, right upper quadrant documented in this encounter [facility] note* Diagnosis Medication refill [Z76.0 (ICD-10-CM)]- Primary Issue of repeat prescriptions Essential hypertension Unspecified essential hypertension documented in this encounter [facility] note* Diagnosis Presence of drug coated stent in right coronary artery- Primary Postsurgical percutaneous transluminal coronary angioplasty status Essential hypertension Unspecified essential hypertension Atherosclerosis of sitka coronary artery of sitka heart without angina pectoris Controlled type 2 diabetes mellitus without complication, without long-term current use of insulin ([facility]) Obesity, Class II, BMI 35-39.9 E66.9 Obesity, unspecified documented in this encounter [facility] note* Diagnosis Essential hypertension Unspecified essential hypertension documented in this encounter [facility] note* Diagnosis Encounter for screening mammogram for breast cancer documented in this encounter [facility] note* Diagnosis Right flank pain Abdominal pain, unspecified site documented in this encounter [facility] note* Diagnosis Encounter for screening mammogram for malignant neoplasm of breast Other screening mammogram documented in this encounter [facility] note* Diagnosis Right flank tenderness Abdominal tenderness, unspecified site documented in this encounter [facility] noteNo InformationNort [employer] Other Evaluation note* Diagnosis Palpitations- Primary documented in this encounter [facility] general Narrative - Reported* Type Description Date Medical History heart disease Medical History Osteoarthritis Medical History high blood pressure Surgical History heart stent Surgical History hernia repair [employer] Other History general Narrative - Reported* Type Description Date Medical History heart disease Medical History Osteoarthritis Medical History high blood pressure Medical History Barretts esophagus Medical History diverticulosis Surgical History heart stent Surgical History hernia repair Surgical History COLON RESECTION Hospitalization History COVID JANUARY 2022 [employer] Other History general Narrative - Reported* Type Description Date Medical History heart disease Medical History Osteoarthritis Medical History high blood pressure Medical History Barretts esophagus Medical History diverticulosis Medical History NARCISO Surgical History heart stent Surgical History hernia repair Surgical History COLON RESECTION Hospitalization History COVID JANUARY 2022 [employer] Other History general Narrative - Reported* Type Description Date Medical History heart disease Medical History Osteoarthritis Medical History high blood pressure Medical History Barretts esophagus Medical History diverticulosis Medical History NARCISO Medical History Prediabets Surgical History heart stent Surgical History hernia repair Surgical History COLON RESECTION Hospitalization History COVID JANUARY 2022 Hospitalization History See Above [employer] Other History of Present illness [id number] patient underwent laparoscopic repair of hiatal hernia with toupee wrap above 52 [address]bougie. She is currently on a soft diet. She tries scrambled eggs but it went down slowly. She was able to tolerate mashed potato. Denies nausea, vomiting, heartburn and acid reflux. Still has some pain over the left upper quadrant incision especially when she sneezes or moves.[facility] [address] DO Work Phone: Hospital course Narrative No data available for this section [facility] Additional Instructions Follow-up with your primary care doctor Return to ED if develop worsening symptoms or concerns Stop your Macrobid Start [facility] Work Phone: Hospital Discharge instructions Additional Instructions Follow-up with your primary care doctor Return to ED for develop worsening symptoms [facility] Work Phone: Hospital Discharge instructions No data available for this section [facility] No data available for this section [facility] (narrative)* Diagnostic Procedure Only (Routine) - Closed Specialty Diagnoses / Procedures Referred By Tasia vasquez Referred To Contact XR IMAGING Diagnoses Multiple joint pain Pain in both hands Procedures XR HAND GENERAL 3V PA/LAT/OBL BILATERAL RADEX HAND MINIMUM 3 VIEWS Alisson Macias, CATTLE FEEDER.DRYING OVEN TENDER [address] [place] [address] Xr Imaging Referral ID Status Reason Start Date Expiration Date V isits Requested Visits Authorized [id number] Closed Auto-Generate d Referral 10/06/2022 11/05/2023 1 1 * Diagnostic Procedure Only (Routine) - Closed Specialty Diagnoses / Procedures Referred By Contac t Referred To Contact XR IMAGING Diagnoses Multiple joint pain Acute left ankle pain Procedures XR ANKLE GENERAL 3V AP/LAT/OBL LEFT RADEX ANKLE COMPLETE MINIMUM 3 VIEWS Alisson Macias APRN.DRYING OVEN TENDER [address] [place] [address] Xr Imaging Referral ID Status Reason Start Date Expiration Date V isits Requested Visits Authorized [id number] Closed Auto-Generate d Referral 10/06/2022 11/05/2023 1 1 * Diagnostic Procedure Only (Routine) - Closed Specialty Diagnoses / Procedures Referred By Contac t Referred To Contact XR IMAGING Diagnoses Primary osteoarthritis of both knees Multiple joint pain Procedures XR KNEE GENERAL 4V AP BOTH/PA BOTH/LAT/MERC LEFT RADIOLOGIC EXAM KNEE COMPLETE 4/MORE VIEWS Alisson Macias APRN.DRYING OVEN TENDER [address] [place] [address] Xr Imaging Referral ID Status Reason Start Date Expiration Date V isits Requested Visits Authorized [id number] Closed Auto-Generate d Referral 10/06/2022 11/05/2023 1 1 [facility] for referral (narrative)* Diagnostic Procedure Only (Routine) - Authorized Specialty Diagnoses / Procedures Referred By Contac t Referred To Contact BR IMAGING Diagnoses Encounter for screening mammogram for breast cancer Procedures MILY SCREENING SCREENING MAMMOGRAPHY BI 2-VIEW BREAST INC CAD Mack Uribe MD [address] [place] [id number] [facility] [address] [place] [address] Referral ID Status Reason Start Date Expiration Date Visits Requested Visits Authorized [id number] Authorized Auto-Generat ed Referral 12/20/2022 01/19/2024 1 1 [facility] for referral (narrative)* Diagnostic Procedure Only (Urgent) - Closed Specialty Diagnoses / Procedures Referred By Contac t Referred To Contact US IMAGING Diagnoses Right flank pain Procedures US ABD RIGHT UPPER QUADRANT US ABDOMINAL REAL TIME W/IMAGE LIMITED Jairon Cowan APRN.DRYING OVEN TENDER [address] [place] [address] Us Imaging Referral ID Status Reason Start Date Expiration Date V isits Requested Visits Authorized [id number] Closed Auto-Generate d Referral 01/10/2023 2024 1 1 [facility] for referral (narrative)* Outpatient Procedure (Routine) - Pending Review Specialty Diagnoses / Procedures Referred By Contac t Referred To [facility] Diagnoses Essential hypertension Atherosclerosis of sitka coronary artery of sitka heart without angina pectoris Controlled type 2 diabetes mellitus without complication, without long-term current use of insulin (HCC) Presence of drug coated stent in right coronary artery Obesity, Class II, BMI 35-39.9 Procedures ECG COMPLETE ECG ROUTINE ECG W/LEAST 12 LDS W/I&[place] [address] [place] [address] [facility] [address] [place] [address] Referral ID Status Reason Start Date Expiration Date Visits Requested Visits Authorized [id number] Pending Review Auto-Generat ed Referral 02/05/2023 02/05/2024 1 1 [facility] for referral (narrative)* Diagnostic Procedure Only (Routine) - Closed Specialty Diagnoses / Procedures Referred By Contac t Referred To Contact BR IMAGING Diagnoses Encounter for screening mammogram for breast cancer Procedures MILY SCREENING SCREENING MAMMOGRAPHY BI 2-VIEW BREAST INC CAD Mack Uribe MD [address] [place] [address] [facility] [address] [place] [address] Referral ID Status Reason Start Date Expiration Date V isits Requested Visits Authorized [id number] Closed Auto-Generate d Referral 10/19/2021 11/18/2022 1 1 [facility] for referral (narrative)* Diagnostic Procedure Only (Urgent) - Closed Specialty Diagnoses / Procedures Referred By Contac t Referred To Contact US IMAGING Diagnoses Right flank pain Procedures US ABD RIGHT UPPER QUADRANT US ABDOMINAL REAL TIME W/IMAGE LIMITED Jairon Cowan, CATTLE FEEDER.DRYING OVEN TENDER [address] [place] [address] Us Imaging Referral ID Status Reason Start Date Expiration Date V isits Requested Visits Authorized [id number] Closed Auto-Generate d Referral 01/10/2023 2024 1 1 [facility] for referral (narrative)* Outpatient Procedure (Routine) - Pending Review Specialty Diagnoses / Procedures Referred By Contac t Referred To Contact [facility] Diagnoses Palpitations Procedures ECG COMPLETE ECG ROUTINE ECG W/LEAST 12 LDS W/I&R Sadia, [place] [address] [place] [address] [facility] [address] [place] [address] Referral ID Status Reason Start Date Expiration Date Visits Requested Visits Authorized [id number] Pending Review Auto-Generat ed Referral 10/18/2023 10/17/2024 1 1 [facility] for visit Narrative* Diagnostic Procedure Only (Urgent) - Closed Specialty Diagnoses / Procedures Referred By Conttripp t Referred To Contact US IMAGING Diagnoses Right flank pain Procedures US ABD RIGHT UPPER QUADRANT US ABDOMINAL REAL TIME W/IMAGE LIMITED Jairon Cowan APRN.DRYING OVEN TENDER [address] [place] [address] Us Imaging Referral ID Status Reason Start Date Expiration Date V isits Requested Visits Authorized [id number] Closed Auto-Generate d Referral 01/10/2023 2024 1 1 [facility] Summary Purpose Family History No Family History Records Found Grandmother Name Dates Details Family history of malignant neoplasm of colon(V16.0, Z80.0) Status:Active aunt Name Dates Details Family history of breast can cer(V16.3, Z80.3) Status:Active Mother Name Dates Details Family history of malignant neoplasm of colon(V16.0, Z80.0) Status:Active Grandfather Name Dates Details Family history of throat can cer(V16.0, Z80.0) Status:Active Family history of lung cance r(V16.1, Z80.1) Status:Active Grandmother Name Dates Details Family history of malignant neoplasm of colon(V16.0, Z80.0) Status:Active aunt Name Dates Details Family history of breast can cer(V16.3, Z80.3) Status:Active Mother Name Dates Details Family history of malignant neoplasm of colon(V16.0, Z80.0) Status:Active Grandfather Name Dates Details Family history of throat can cer(V16.0, Z80.0) Status:Active Family history of lung cance r(V16.1, Z80.1) Status:Active Grandmother Name Dates Details Family history of malignant neoplasm of colon(V16.0, Z80.0) Status:Active aunt Name Dates Details Family history of breast can cer(V16.3, Z80.3) Status:Active Mother Name Dates Details Family history of malignant neoplasm of colon(V16.0, Z80.0) Status:Active Grandfather Name Dates Details Family history of throat can cer(V16.0, Z80.0) Status:Active Family history of lung cance r(V16.1, Z80.1) Status:Active Unknown Family Member Name Dates Details Family history of malignant neoplasm of colon: Mother, Maternal Grandmother(V16.0, Z80.0) Status:Active Family history of throat can cer: Maternal Grandfather(V16.0, Z80.0) Status:Active Family history of lung cance r: Maternal Grandfather(V16.1, Z80.1) Status:Active Family history of breast can cer: Maternal Aunt(V16.3, Z80.3) Status:Active Unknown Family Member Name Dates Details Family history of malignant neoplasm of colon: Mother, Maternal Grandmother(V16.0, Z80.0) Status:Active Family history of throat can cer: Maternal Grandfather(V16.0, Z80.0) Status:Active Family history of lung cance r: Maternal Grandfather(V16.1, Z80.1) Status:Active Family history of breast can cer: Maternal Aunt(V16.3, Z80.3) Status:Active Unknown Family Member Name Dates Details Family history of malignant neoplasm of colon: Mother, Maternal Grandmother(V16.0, Z80.0) Status:Active Family history of throat can cer: Maternal Grandfather(V16.0, Z80.0) Status:Active Family history of lung cance r: Maternal Grandfather(V16.1, Z80.1) Status:Active Family history of breast can cer: Maternal Aunt(V16.3, Z80.3) Status:Active Unknown Family Member Name Dates Details Family history of malignant neoplasm of colon: Mother, Maternal Grandmother(V16.0, Z80.0) Status:Active Family history of throat can cer: Maternal Grandfather(V16.0, Z80.0) Status:Active Family history of lung cance r: Maternal Grandfather(V16.1, Z80.1) Status:Active Family history of breast can cer: Maternal Aunt(V16.3, Z80.3) Status:Active Unknown Family Member Name Dates Details Family history of malignant neoplasm of colon: Mother, Maternal Grandmother(V16.0, Z80.0) Status:Active Family history of throat can cer: Maternal Grandfather(V16.0, Z80.0) Status:Active Family history of lung cance r: Maternal Grandfather(V16.1, Z80.1) Status:Active Family history of breast can cer: Maternal Aunt(V16.3, Z80.3) Status:Active Unknown Family Member Name Dates Details Family history of malignant neoplasm of colon: Mother, Maternal Grandmother(V16.0, Z80.0) Status:Active Family history of throat can cer: Maternal Grandfather(V16.0, Z80.0) Status:Active Family history of lung cance r: Maternal Grandfather(V16.1, Z80.1) Status:Active Family history of breast can cer: Maternal Aunt(V16.3, Z80.3) Status:Active Unknown Family Member Name Dates Details Family history of malignant neoplasm of colon: Mother, Maternal Grandmother(V16.0, Z80.0) Status:Active Family history of throat can cer: Maternal Grandfather(V16.0, Z80.0) Status:Active Family history of lung cance r: Maternal Grandfather(V16.1, Z80.1) Status:Active Family history of breast can cer: Maternal Aunt(V16.3, Z80.3) Status:Active Unknown Family Member Name Dates Details Family history of malignant neoplasm of colon: Mother, Maternal Grandmother(V16.0, Z80.0) Status:Active Family history of throat can cer: Maternal Grandfather(V16.0, Z80.0) Status:Active Family history of lung cance r: Maternal Grandfather(V16.1, Z80.1) Status:Active Family history of breast can cer: Maternal Aunt(V16.3, Z80.3) Status:Active Unknown Family Member Name Dates Details Family history of malignant neoplasm of colon: Mother, Maternal Grandmother(V16.0, Z80.0) Status:Active Family history of throat can cer: Maternal Grandfather(V16.0, Z80.0) Status:Active Family history of lung cance r: Maternal Grandfather(V16.1, Z80.1) Status:Active Family history of breast can cer: Maternal Aunt(V16.3, Z80.3) Status:Active Relationship Condition Age at Onset Recorded Date/T dwayne Not Specified Coronary artery disease Unknown Relationship Condition Age at Onset Recorded Date/T dwayne father Malignant neoplasm Unknown Coronary artery disease Unknown Hypertension Unknown Not Specified Hypertension Unknown Malignant neoplasm Unknown Diabetes mellitus Unknown Dementia Unknown brother Malignant neoplasm Unknown brother Hypertension Unknown Advance Directives No Advanced Directives Records FoundDocuments on File Type Date Recorded Patient [employer] Advance Directive(s) 05/26/2021 3:46 PM Advance Directive(s) 04/07/2021 11:57 AM Advance Directive(s) 04/04/2021 4:30 PM Advance Directive(s) 04/05/2017 10:46 PM Advance Directive(s) 03/26/2017 6:24 AM Advance Directive(s) 03/05/2017 10:18 AM Advance Directive(s) 01/05/2017 12:08 PM Advance Directive(s) 06/26/2016 2:58 AM Advance Directive(s) 11/22/2015 11:33 AM Documents on File Type Date Recorded Patient [employer] Advance Directive(s) 05/26/2021 3:46 PM Advance Directive(s) 04/07/2021 11:57 AM Advance Directive(s) 04/04/2021 4:30 PM Advance Directive(s) 04/05/2017 10:46 PM Advance Directive(s) 03/26/2017 6:24 AM Advance Directive(s) 03/05/2017 10:18 AM Advance Directive(s) 01/05/2017 12:08 PM Advance Directive(s) 06/26/2016 2:58 AM Advance Directive(s) 11/22/2015 11:33 AM Advance Directive Response Recorded Date/ Time Advance Directives No May 27, 2021 12:38am Advance Directive Response Recorded Date/ Time Advance Directives No May 26, 2021 11:38pm Chief Complaint POV patient is here post op hiatal hernia repairPatient is here today LUQ pain. Patient is here today for a hospital follow up.Patient is here today for a hospital follow up. Reason for Referral Specialty Diagnoses / Procedures Referred By Tasia vasquez Referred To Contact Neurology Diagnoses Paresthesias Procedures CONSULT TO NEUROLOGY OFFICE/OUTPATIENT [facility] 60-74 MINUTES Eunice Pearl MD [address] [place] [id number] Referral ID Status Reason Start Date Expiration Date Visits Requested Visits Authorized [id number] Pending Review PCP Requested Referral 12/14/2021 12/14/2022 1 1 Specialty Diagnoses / Procedures Referred By Contac t Referred To Contact Orthopedics Diagnoses Primary osteoarthritis of both hands Procedures CONSULT TO ORTHOPAEDICS OFFICE/OUTPATIENT [facility] 60-74 MINUTES Alisson Macias, CATTLE FEEDER.DRYING OVEN TENDER [address] [place] [address] Referral ID Status Reason Start Date Expiration Date Visits Requested Visits Authorized [id number] Authorized PCP Requested Referral 10/09/2022 10/09/2023 1 1 Specialty Diagnoses / Procedures Referred By Tasia vasquez Referred To Contact Gastroenterology Diagnoses Epigastric pain RUQ pain Procedures CONSULT TO GASTROENTEROLOGY OFFICE/OUTPATIENT NEW HIGH MDM 60-74 MINUTES Jairon Cowan, NEEMA.DRYING OVEN TENDER [address] [place] [address] Referral ID Status Reason Start Date Expiration Date Visits Requested Visits Authorized [id number] Authorized PCP Requested Referral 01/11/2023 01/11/2024 1 1 Reason evaluate and treat f or weight gain Diagnosis 1 Weight gain (R63.5) Referral Organization [facility] Referring Provider First Name Kwadwo Referring Provider Last Name Piyush Referring Provider Specialty Gastroenter ology Referred Organization Unknown Facility Referred Provider Troy Gonzalez Referred Provider Specialty Nutrition Referral Priority Routine Chief Complaint and Reason for Visit Chief Complaint Chest Pain, Headache Reason for Visit Chest pain Coronary artery disease COVID-19 Hypertension Chief Complaint Chest Pain, Headache Chest Pain, Hx of CAD Chest Pain, Hx of CAD Reason for Visit Arterial stent throm bosis Chest pain Coronary artery disease COVID-19 Frontal headache Hypertension Chief Complaint Chest Pain, Headache Chest Pain, Hx of CAD Chest Pain, Hx of CAD Rxn to meds Reason for Visit Arterial stent throm bosis Chest pain Coronary artery disease COVID-19 Frontal headache Hypertension Chief Complaint pain and swelling le ft leg Chief Complaint abd pain,vomiting Chief Complaint abd pain,vomiting right side abdominal pain Chief Complaint right side abdominal pain z00.00 z13.6 z114 z11.59 z13.29 Chief Complaint right side abdominal pain z00.00 z13.6 z114 z11.59 z13.29 Obstructive sleep apnea Chief Complaint right side abdominal pain z00.00 z13.6 z114 z11.59 z13.29 Obstructive sleep apnea Obstructive sleep apnea Chief Complaint right side abdominal pain z00.00 z13.6 z114 z11.59 z13.29 Obstructive sleep apnea Obstructive sleep apnea Abdominal Weight Gain Additional Source Comments INFORMATION SOURCE (unrecogn ized section and content) DATE CREATED AUTHOR 11/16/2018 [facility] DATE CREATED AUTHOR AUTHOR'S ORGANIZ ATION 03/06/2020 [facility] DATE CREATED AUTHOR AUTHOR'S ORGANIZ ATION 12/02/2020 [facility] DATE CREATED AUTHOR AUTHOR'S ORGANIZ ATION 03/07/2021 [facility] DATE CREATED AUTHOR AUTHOR'S ORGANIZ ATION 03/08/2021 [facility] DATE CREATED AUTHOR AUTHOR'S ORGANIZ ATION 04/09/2021 [facility] DATE CREATED AUTHOR AUTHOR'S ORGANIZ ATION 04/12/2021 [facility] DATE CREATED AUTHOR AUTHOR'S ORGANIZ ATION 04/12/2021 [facility] DATE CREATED AUTHOR AUTHOR'S ORGANIZ ATION 06/17/2021 [facility] DATE CREATED AUTHOR AUTHOR'S ORGANIZ ATION 08/20/2023 [facility] DATE CREATED AUTHOR AUTHOR'S ORGANIZ ATION 08/27/2023 [facility] DATE CREATED AUTHOR AUTHOR'S ORGANIZ ATION 09/21/2023 [facility] DATE CREATED AUTHOR AUTHOR'S ORGANIZ ATION 10/19/2023 [facility] <item><item><item><item> Privacy Markings (unrecogniz ed section and content) Section Author: Sofía Milton PROHIBITION ON REDISCLOSURE OF CONFIDENTIAL INFORMATION This notice accompanies a disclosure of information concerning a client made to you with the consent of such client. Section Author: Sofía Milton PROHIBITION ON REDISCLOSURE OF CONFIDENTIAL INFORMATION This notice accompanies a disclosure of information concerning a client made to you with the consent of such client. Section Author: Sofía Milton PROHIBITION ON REDISCLOSURE OF CONFIDENTIAL INFORMATION This notice accompanies a disclosure of information concerning a client made to you with the consent of such client. Section Author: Sofía Milton PROHIBITION ON REDISCLOSURE OF CONFIDENTIAL INFORMATION This notice accompanies a disclosure of information concerning a client made to you with the consent of such client. Source Comments (unrecognize d section and content) In the event this informatio n is protected by the Federal Confidentiality of Alcohol and Drug Abuse Patient Records regulations: The Federal rules restrict any use of the information to criminally investigate or prosecute any alcohol or drug abuse patient.[facility] Hospital[facility] the event this information is protected by the Federal Confidentiality of Alcohol and Drug Abuse Patient Records regulations: The Federal rules restrict any use of the information to criminally investigate or prosecute any alcohol or drug abuse patient.[facility] HospitalIn the event this information is protected by the Federal Confidentiality of Alcohol and Drug Abuse Patient Records regulations: The Federal rules restrict any use of the information to criminally investigate or prosecute any alcohol or drug abuse patient.[facility] HospitalIn the event this information is protected by the Federal Confidentiality of Alcohol and Drug Abuse Patient Records regulations: The Federal rules restrict any use of the information to criminally investigate or prosecute any alcohol or drug abuse patient.[facility] HospitalIn the event this information is protected by the Federal Confidentiality of Alcohol and Drug Abuse Patient Records regulations: The Federal rules restrict any use of the information to criminally investigate or prosecute any alcohol or drug abuse patient.[facility] HospitalIn the event this information is protected by the Federal Confidentiality of Alcohol and Drug Abuse Patient Records regulations: The Federal rules restrict any use of the information to criminally investigate or prosecute any alcohol or drug abuse patient.[facility] HospitalIn the event this information is protected by the Federal Confidentiality of Alcohol and Drug Abuse Patient Records regulations: The Federal rules restrict any use of the information to criminally investigate or prosecute any alcohol or drug abuse patient.[facility] HospitalIn the event this information is protected by the Federal Confidentiality of Alcohol and Drug Abuse Patient Records regulations: The Federal rules restrict any use of the information to criminally investigate or prosecute any alcohol or drug abuse patient.[facility] HospitalIn the event this information is protected by the Federal Confidentiality of Alcohol and Drug Abuse Patient Records regulations: The Federal rules restrict any use of the information to criminally investigate or prosecute any alcohol or drug abuse patient.[facility] HospitalIn the event this information is protected by the Federal Confidentiality of Alcohol and Drug Abuse Patient Records regulations: The Federal rules restrict any use of the information to criminally investigate or prosecute any alcohol or drug abuse patient.[facility] HospitalIn the event this information is protected by the Federal Confidentiality of Alcohol and Drug Abuse Patient Records regulations: The Federal rules restrict any use of the information to criminally investigate or prosecute any alcohol or drug abuse patient.[facility] HospitalIn the event this information is protected by the Federal Confidentiality of Alcohol and Drug Abuse Patient Records regulations: The Federal rules restrict any use of the information to criminally investigate or prosecute any alcohol or drug abuse patient.[facility] HospitalIn the event this information is protected by the Federal Confidentiality of Alcohol and Drug Abuse Patient Records regulations: The Federal rules restrict any use of the information to criminally investigate or prosecute any alcohol or drug abuse patient.[facility] HospitalIn the event this information is protected by the Federal Confidentiality of Alcohol and Drug Abuse Patient Records regulations: The Federal rules restrict any use of the information to criminally investigate or prosecute any alcohol or drug abuse patient.[facility] HospitalIn the event this information is protected by the Federal Confidentiality of Alcohol and Drug Abuse Patient Records regulations: The Federal rules restrict any use of the information to criminally investigate or prosecute any alcohol or drug abuse patient.[facility] HospitalIn the event this information is protected by the Federal Confidentiality of Alcohol and Drug Abuse Patient Records regulations: The Federal rules restrict any use of the information to criminally investigate or prosecute any alcohol or drug abuse patient.[facility] HospitalIn the event this information is protected by the Federal Confidentiality of Alcohol and Drug Abuse Patient Records regulations: The Federal rules restrict any use of the information to criminally investigate or prosecute any alcohol or drug abuse patient.[facility] HospitalIn the event this information is protected by the Federal Confidentiality of Alcohol and Drug Abuse Patient Records regulations: The Federal rules restrict any use of the information to criminally investigate or prosecute any alcohol or drug abuse patient.[facility] HospitalIn the event this information is protected by the Federal Confidentiality of Alcohol and Drug Abuse Patient Records regulations: The Federal rules restrict any use of the information to criminally investigate or prosecute any alcohol or drug abuse patient.[facility] HospitalIn the event this information is protected by the Federal Confidentiality of Alcohol and Drug Abuse Patient Records regulations: The Federal rules restrict any use of the information to criminally investigate or prosecute any alcohol or drug abuse patient.[facility] HospitalIn the event this information is protected by the Federal Confidentiality of Alcohol and Drug Abuse Patient Records regulations: The Federal rules restrict any use of the information to criminally investigate or prosecute any alcohol or drug abuse patient.[facility] HospitalIn the event this information is protected by the Federal Confidentiality of Alcohol and Drug Abuse Patient Records regulations: The Federal rules restrict any use of the information to criminally investigate or prosecute any alcohol or drug abuse patient.[facility] HospitalIn the event this information is protected by the Federal Confidentiality of Alcohol and Drug Abuse Patient Records regulations: The Federal rules restrict any use of the information to criminally investigate or prosecute any alcohol or drug abuse patient.[facility] HospitalIn the event this information is protected by the Federal Confidentiality of Alcohol and Drug Abuse Patient Records regulations: The Federal rules restrict any use of the information to criminally investigate or prosecute any alcohol or drug abuse patient.[facility] HospitalIn the event this information is protected by the Federal Confidentiality of Alcohol and Drug Abuse Patient Records regulations: The Federal rules restrict any use of the information to criminally investigate or prosecute any alcohol or drug abuse patient.[facility] HospitalIn the event this information is protected by the Federal Confidentiality of Alcohol and Drug Abuse Patient Records regulations: The Federal rules restrict any use of the information to criminally investigate or prosecute any alcohol or drug abuse patient.[facility] HospitalIn the event this information is protected by the Federal Confidentiality of Alcohol and Drug Abuse Patient Records regulations: The Federal rules restrict any use of the information to criminally investigate or prosecute any alcohol or drug abuse patient.[facility] HospitalIn the event this information is protected by the Federal Confidentiality of Alcohol and Drug Abuse Patient Records regulations: The Federal rules restrict any use of the information to criminally investigate or prosecute any alcohol or drug abuse patient.[facility] HospitalIn the event this information is protected by the Federal Confidentiality of Alcohol and Drug Abuse Patient Records regulations: The Federal rules restrict any use of the information to criminally investigate or prosecute any alcohol or drug abuse patient.[facility] HospitalIn the event this information is protected by the Federal Confidentiality of Alcohol and Drug Abuse Patient Records regulations: The Federal rules restrict any use of the information to criminally investigate or prosecute any alcohol or drug abuse patient.[facility] HospitalIn the event this information is protected by the Federal Confidentiality of Alcohol and Drug Abuse Patient Records regulations: The Federal rules restrict any use of the information to criminally investigate or prosecute any alcohol or drug abuse patient.[facility] HospitalIn the event this information is protected by the Federal Confidentiality of Alcohol and Drug Abuse Patient Records regulations: The Federal rules restrict any use of the information to criminally investigate or prosecute any alcohol or drug abuse patient.[facility] HospitalIn the event this information is protected by the Federal Confidentiality of Alcohol and Drug Abuse Patient Records regulations: The Federal rules restrict any use of the information to criminally investigate or prosecute any alcohol or drug abuse patient.[facility] HospitalIn the event this information is protected by the Federal Confidentiality of Alcohol and Drug Abuse Patient Records regulations: The Federal rules restrict any use of the information to criminally investigate or prosecute any alcohol or drug abuse patient.[facility] HospitalIn the event this information is protected by the Federal Confidentiality of Alcohol and Drug Abuse Patient Records regulations: The Federal rules restrict any use of the information to criminally investigate or prosecute any alcohol or drug abuse patient.[facility] HospitalIn the event this information is protected by the Federal Confidentiality of Alcohol and Drug Abuse Patient Records regulations: The Federal rules restrict any use of the information to criminally investigate or prosecute any alcohol or drug abuse patient.[facility] HospitalIn the event this information is protected by the Federal Confidentiality of Alcohol and Drug Abuse Patient Records regulations: The Federal rules restrict any use of the information to criminally investigate or prosecute any alcohol or drug abuse patient.[facility] HospitalIn the event this information is protected by the Federal Confidentiality of Alcohol and Drug Abuse Patient Records regulations: The Federal rules restrict any use of the information to criminally investigate or prosecute any alcohol or drug abuse patient.[facility] Care Teams (unrecognized sec tion and content) Oxygen Equipment Technician Relationship Specialty Start Date End Date Mack Uribe MD [facility] [place] [address] PCP - General Internal Medicine 12/18/11 Matilde Godinez MD Primary Staff Physician Cardiology 10/29/18 Oxygen Equipment Technician Relationship Specialty Start Date End Date Mack Uribe MD [facility] [place] [address] PCP - General Internal Medicine 12/18/11 Matilde Godinez MD Primary Staff Physician Cardiology 10/29/18 Oxygen Equipment Technician Relationship Specialty Start Date End Date Mack Uribe MD [facility] [place] [address] PCP - General Internal Medicine 12/18/11 Matilde Godinez MD Primary Staff Physician Cardiology 10/29/18 Oxygen Equipment Technician Relationship Specialty Start Date End Date Mack Uribe MD [facility] [place] [address] PCP - General Internal Medicine 12/18/11 Matilde Godinez MD Primary Staff Physician Cardiology 10/29/18 Oxygen Equipment Technician Relationship Specialty Start Date End Date Mack Uribe MD [address] [facility] [address] PCP - General Internal Medicine 12/18/11 Matilde Godinez MD Primary Staff Physician Cardiology 10/29/18 Oxygen Equipment Technician Relationship Specialty Start Date End Date Mack Uribe MD [facility] [place] [address] PCP - General Internal Medicine 12/18/11 Matilde Godinez MD Primary Staff Physician Cardiology 10/29/18 Oxygen Equipment Technician Relationship Specialty Start Date End Date Mack Uribe MD [address] [place] [address] PCP - General Internal Medicine 12/18/11 Matilde Godinez MD Primary Staff Physician Cardiology 10/29/18 Oxygen Equipment Technician Relationship Specialty Start Date End Date Mack Uribe MD [address] [place] [address] PCP - General Internal Medicine 12/18/11 Matilde Godinez MD Primary Staff Physician Cardiology 10/29/18 Team Status: Active Member Role Status Dates NON STAFF Primary Care Provider Active Alexsander Lehman DO Emergency Provider Active Devin Rodriguez MD Admit Provider, Attending Provider Active Michael Spencer MD Other Provider Active Team Status: Active Member Role Status Dates NON STAFF Primary Care Provider Active Team Status: Inactive Member Role Status Dates Nathalie West , DO Attending Provider Active Mack Uribe MD Primary Care Provider Active Team Status: Inactive Member Role Status Dates Alexsander Lehman , DO Emergency Provider Active Devin Rodriguez MD Admit Provider Active Michael Spencer MD Other Provider Active Mayra Denson MD Attending Provider Active Mack Uribe MD Primary Care Provider Active Team Status: Active Member Role Status Dates Mack Uribe MD Primary Care Provider Active Team Status: Inactive Member Role Status Dates Mack Uribe MD Primary Care Provider Active Kang Gonzalez DO Emergency Provider Active Michael Mcneil DO RES Active Oxygen Equipment Technician Relationship Specialty Start Date End Date Mack Uribe MD [address] [place] [address] PCP - General Internal Medicine 12/18/11 Matilde Godinez MD Primary Staff Physician Cardiology 10/29/18 Oxygen Equipment Technician Relationship Specialty Start Date End Date Mack Uribe MD [address] [place] [address] PCP - General Internal Medicine 12/18/11 Matilde Godinez MD Primary Staff Physician Cardiology 10/29/18 Oxygen Equipment Technician Relationship Specialty Start Date End Date Mack Uribe MD [address] [place] [address] PCP - General Internal Medicine 12/18/11 Matilde Godinez MD Primary Staff Physician Cardiology 10/29/18 Oxygen Equipment Technician Relationship Specialty Start Date End Date Mack Uribe MD [address] [place] [address] PCP - General Internal Medicine 12/18/11 Matilde Godinez MD Primary Staff Physician Cardiology 10/29/18 Oxygen Equipment Technician Relationship Specialty Start Date End Date Mack Uribe MD [address] [place] [address] PCP - General Internal Medicine 12/18/11 Matilde Godinez MD Primary Staff Physician Cardiology 10/29/18 Team Status: Inactive Member Role Status Dates Mack Uribe MD Primary Care Provider Active Tammie Merchant APRN Emergency Provider Active Oxygen Equipment Technician Relationship Specialty Start Date End Date Mack Uribe MD [address] [place] [address] PCP - General Internal Medicine 12/18/11 Matilde Godinez MD [address] [place] [address] Primary Staff Physician Cardiology 10/29/18 Oxygen Equipment Technician Relationship Specialty Start Date End Date Mack Uribe MD [address] [place] [address] PCP - General Internal Medicine 12/18/11 Matilde Godinez MD [address] [place] [address] Primary Staff Physician Cardiology 10/29/18 Oxygen Equipment Technician Relationship Specialty Start Date End Date Mack Uribe MD [address] [place] [address] PCP - General Internal Medicine 12/18/11 Matilde Godinez MD [address] [place] [address] Primary Staff Physician Cardiology 10/29/18 Oxygen Equipment Technician Relationship Specialty Start Date End Date Mack Uribe MD [address] [place] [address] PCP - General Internal Medicine 12/18/11 Matilde Godinez MD [address] [place] [address] Primary Staff Physician Cardiology 10/29/18 Oxygen Equipment Technician Relationship Specialty Start Date End Date Mack Uribe MD [address] [place] [address] PCP - General Internal Medicine 12/18/11 Matilde Godinez MD [address] [place] [address] Primary Staff Physician Cardiology 10/29/18 Oxygen Equipment Technician Relationship Specialty Start Date End Date Mack Uribe MD [address] [place] [address] PCP - General Internal Medicine 12/18/11 Matilde Godinez MD [address] [place] [address] Primary Staff Physician Cardiology 10/29/18 Oxygen Equipment Technician Relationship Specialty Start Date End Date Mack Uribe MD [address] [place] [address] PCP - General Internal Medicine 12/18/11 Matilde Godinez MD [address] [place] [address] Primary Staff Physician Cardiology 10/29/18 Oxygen Equipment Technician Relationship Specialty Start Date End Date Mack Uribe MD [address] [place] [address] PCP - General Internal Medicine 12/18/11 Matilde Godinez MD [address] [place] [address] Primary Staff Physician Cardiology 10/29/18 Oxygen Equipment Technician Relationship Specialty Start Date End Date Mack Uribe MD [address] [place] [address] PCP - General Internal Medicine 12/18/11 Matilde Godinez MD [address] [place] [address] Primary Staff Physician Cardiology 10/29/18 Oxygen Equipment Technician Relationship Specialty Start Date End Date Mack Uribe MD [address] [place] [address] PCP - General Internal Medicine 12/18/11 Matilde Godinez MD [address] [place] [address] Primary Staff Physician Cardiology 10/29/18 Oxygen Equipment Technician Relationship Specialty Start Date End Date Mack Uribe MD [address] [place] [address] PCP - General Internal Medicine 12/18/11 Matilde Godinez MD [address] [place] [address] Primary Staff Physician Cardiology 10/29/18 Team Status: Inactive Member Role Status Dates Mack Uribe MD Primary Care Provider Active Kang Gonzalez DO Emergency Provider Active Oxygen Equipment Technician Relationship Specialty Start Date End Date Mack Uribe MD [address] [place] [address] PCP - General Internal Medicine 12/18/11 Matilde Godinez MD [address] [place] [address] Primary Staff Physician Cardiology 10/29/18 Oxygen Equipment Technician Relationship Specialty Start Date End Date Mack Uribe MD [address] [place] [address] PCP - General Internal Medicine 12/18/11 Matiled Godinez MD [address] [place] [address] Primary Staff Physician Cardiology 10/29/18 Oxygen Equipment Technician Relationship Specialty Start Date End Date Mack Uribe MD [address] [place] [address] PCP - General Internal Medicine 12/18/11 Matilde Godinez MD [address] [place] [address] Primary Staff Physician Cardiology 10/29/18 Oxygen Equipment Technician Relationship Specialty Start Date End Date Mack Uribe MD [address] [place] [address] PCP - General Internal Medicine 12/18/11 Matilde Godinez MD [address] [place] [address] Primary Staff Physician Cardiology 10/29/18 Team Status: Inactive Member Role Status Dates Mack Uribe MD Primary Care Provider Active Elotn Larson DO Emergency Provider Active Team Status: Active Member Role Status Dates Orlin Freeman , [facility] Primary Care Provider Active Team Status: Inactive Member Role Status Dates Orlin Freeman , [facility] Primary Care Provider, Attendi ng Provider Active Team Status: Inactive Member Role Status Dates Migeul Wesley MD Attending Provider Active Orlin Freeman , [facility] Primary Care Provider, Referri ng Provider Active Oxygen Equipment Technician Relationship Specialty Start Date End Date Mack Uribe MD [address] [place] [address] PCP - General Internal Medicine 12/18/11 Matilde Godinez MD [address] [place] [address] Primary Staff Physician Cardiology 10/29/18 Oxygen Equipment Technician Relationship Specialty Start Date End Date Mack Uribe MD [address] [place] [address] PCP - General Internal Medicine 12/18/11 Matilde Godinez MD [address] [place] [address] Primary Staff Physician Cardiology 10/29/18 Oxygen Equipment Technician Relationship Specialty Start Date End Date Mack Uribe MD [address] [place] [address] PCP - General Internal Medicine 12/18/11 Matilde Godinez MD [address] [place] [address] Primary Staff Physician Cardiology 10/29/18 Team Status: Inactive Member Role Status Dates Miguel Wesley MD Attending Provider Active Orlin Freeman , [facility] Primary Care Provider Active Team Status: Inactive Member Role Status Dates Orlin Freeman , [facility] Primary Care Provider Active Kwadwo Webb MD Attending Provider Active Oxygen Equipment Technician Relationship Specialty Start Date End Date Mack Uribe MD [address] [place] [address] PCP - General Internal Medicine 12/18/11 Matilde Godinez MD [address] [place] [address] Primary Staff Physician Cardiology 10/29/18 Reason for Visit (unrecogniz ed section and content) Reason Comments Numbness Facial numbness; 2 e pisodes, first one was 3 weeks ago Specialty Diagnoses / Procedures Referred By Conttripp t Referred To Contact Diagnoses mammogram annual Procedures Sonia and treat Mack Uribe MD [address] [place] [address] [facility] Dept Referral ID Status Reason Start Date Expiration Date Visits Requested Visits Authorized [id number] Authorized Patient Cleared - Qualified 100% FAS 11/17/2021 02/15/2022 99 99 Reason Comments Patient Update Reason Onset Date Comments Refill Request 01/10/2022 Reason Comments Covid Follow Up Reason Comments Follow Up Reason Comments Diabetes Specialty Diagnoses / Procedures Referred By Contac t Referred To Contact Ophthalmology Diagnoses Screening for diabetic retinopathy Procedures CONSULT TO OPHTHALMOLOGY OFFICE/OUTPATIENT [facility] MDM 60-74 MINUTES Mack Uribe MD [address] [place] [address] Referral ID Status Reason Start Date Expiration Date V isits Requested Visits Authorized [id number] Closed PCP Requested Referral 03/29/2022 03/29/2023 1 1 Reason Comments UTI Frequency and abdomi nal pain for 2 weeks Reason Comments STOMACH ISSUES Reason Comments Flank Pain Reason Comments Radiology XR Reason Comments Results Reason Comments Follow Up continues to have di scomfort lt knee , lt ankle and rt thumb Reason Comments Results Reason Comments Hand Pain Specialty Diagnoses / Procedures Referred By Contac t Referred To Contact Orthopedics Diagnoses Primary osteoarthritis of both hands Procedures CONSULT TO ORTHOPAEDICS OFFICE/OUTPATIENT [facility] 60-74 MINUTES Alisson Macias, [employer]YING OV[employer]ER [address] [place] [address] Referral ID Status Reason Start Date Expiration Date V isits Requested Visits Authorized [id number] Closed PCP Requested Referral 10/09/2022 10/09/2023 1 1 Reason Comments Back Pain R side and belly but ton pain x's 1.5 weeks.Tried tylenol, heat and ice. 0-10, 5, uncomfortable. Reason Onset Date Comments Refill Request 01/14/2023 Reason Comments Established Patient Reason Comments Refill Request Reason Comments Radiology Mammogram Specialty Diagnoses / Procedures Referred By Contac t Referred To Contact [facility] Diagnoses Encounter for screening mammogram for breast cancer Procedures MILY SCREENING SCREENING MAMMOGRAPHY BI 2-VIEW BREAST INC CAD Mack Uribe MD [address] [place] [address] [facility] [address] [place] [address] Referral ID Status Reason Start Date Expiration Date V isits Requested Visits Authorized [id number] Closed Auto-Generate d Referral 10/19/2021 11/18/2022 1 1 Specialty Diagnoses / Procedures Referred By Contac t Referred To Contact Nuclear Medicine / RADIO [facility] REJ Diagnoses Shortness of breath [R06.02] [place] [address] [place] [address] Radio Nuc Med [facility] [address] [address] [place] [address] Referral ID Status Reason Start Date Expiration Date Visits Re quested Visits Authorized [id number] Closed 04/23/2020 08/12/2020 1 0 Reason Comments Syncope Goals (unrecognized section and content) Goals may be documented in a n alternate sectionGoals may be documented in an alternate sectionNo InformationNo InformationGoals may be documented in an alternate section No data available for this section No data available for this sectionGoals may be documented in an alternate sectionGoals may be documented in an alternate section No data available for this section No data available for this section No data available for this section No data available for this section No data available for this sectionGoals may be documented in an alternate sectionGoals may be documented in an alternate sectionNo InformationNo Information No data available for this sectionNo InformationNo InformationGoals may be documented in an alternate sectionNo InformationNo InformationNo InformationNo InformationNo Information No data available for this sectionNo InformationNo InformationNo Information FOR RECORDS PERTAINING TO PATIENTS WHO ARE OR HAVE BEEN ENROLLED IN A CHEMICAL DEPENDENCY/SUBSTANCEABUSE PROGRAM, SOME INFORMATION MAY BE OMITTED. This clinical summary was aggregated from multiple sources. Caution should be exercised in using it in the provision of clinical care. This summary normalizes information from multiple sources, and as a consequence, information in this document may materially change the coding, format and clinical context of patient data. In addition, data may be omitted in some cases. CLINICAL DECISIONS SHOULD BE BASED ON THE PRIMARY CLINICAL RECORDS. [employer] provides no warranty or guarantee of the accuracy or completeness of information in this document."
== END 2023-11-01 08:57 | disposition home or self-care (01) ==
LOC: CT 08:57
PROVIDERS: PCP Nurse Practitioner Primary Care; Visit Provider Physician Assistant
DX: R10.12 Left upper quadrant pain (principal)
CPT/HCPCS: 74177; Q9967